=== PATIENT | male | born 1940 | race Caucasian/White ===

== ENCOUNTER → 2018-01-21 08:55 | Outpatient (CLI) | payer MEDICARE, OTHER, SELFPAY ==
[2018-01-21 10:18] LABS: Hematocrit 34.7 % (40-54); Hemoglobin 11.4 g/dl (13.0-16.5); Mean Corp Hgb Conc 32.9 g/gl (32-36); Mean Corpuscular Hgb 28.8 pg (27.0-32.0); Mean Corpuscular Volume 87.6 fL (80-94); Mean Platelet Vol. 11.5 fl (6.2-12.0); Platelet Count 246 K/mm3 (150-450); RBC Distribution Width CV 13.9 % (11.6-14.6); RBC Distribution Width SD 43.4 fl (35.1-43.9); Red Blood Count 3.96 M/mm3 (4.6-6.2); White Blood Count 8.3 K/mm3 (4.4-11.0)
[2018-01-21 10:20] LABS: Scan Indicated on CBC? Y/N NO
[2018-01-21 10:41] LABS: ALB/GLOB Ratio 0.8 RATIO (0.9-2.4); AST(SGOT) 17 U/L (15-37); Alanine Aminotransfer ALT/SGPT 18 U/L (16-61); Alkaline Phosphatase 82 U/L (45-117); Anion Gap 7 (5-15); BUN 24 mg/dL (7-18); Calcium,Total 8.1 mg/dL (8.5-10.1); Chloride 109 mmol/L (98-107); Cholesterol 125 mg/dL (200); Creatinine, Serum 1.72 mg/dL (0.70-1.30); EST Glomerular Filtration Rate 41 mL/min (>60); Est Glom Filt Rate - Afr Amer 50 mL/min (>60); Globulin 3.8 g/dL (2.2-4.2); Glucose 136 mg/dL (74-106); High Density Lipoprotein 49 mg/dL; Phosphorus 3.8 mg/dL (2.5-4.9); Potassium 3.7 mmol/L (3.5-5.1); Protein, Total 6.8 g/dL (6.4-8.2); Sodium Level 143 mmol/L (136-145); Thyroid Stim Hormone (TSH) 2.47 uIU/mL (0.358-3.74); Triglycerides 57 mg/dL; Very Low Density Lipoprotein 11 mg/dL (5-40)
[2018-01-21 10:56] LABS: PTHIN 73.1 pg/mL (18.4-80.1)
== END ==
PROVIDERS: Family Provider Family Medicine; PCP Family Medicine; Visit Provider Internal Medicine Rheumatology
DX: M06.011 Rheumatoid arthritis without rheumatoid factor, right shoulder (principal); M15.9 Polyosteoarthritis, unspecified; M47.897 Other spondylosis, lumbosacral region; I25.10 Atherosclerotic heart disease of native coronary artery without angina pectoris; I48.91 Unspecified atrial fibrillation; E11.9 Type 2 diabetes mellitus without complications; I10 Essential (primary) hypertension; M48.061 Spinal stenosis, lumbar region without neurogenic claudication; N28.9 Disorder of kidney and ureter, unspecified
CPT/HCPCS: 80053; 80061; 82306; 83970; 84100; 84443; 85027

== ENCOUNTER → 2018-02-21 11:43 | Outpatient (CLI) | payer MEDICARE, OTHER, SELFPAY ==
--- NOTE | 2018-02-21 11:45 | US_ITS ---
STUDY: SCROTUM ULTRASOUND REASON FOR EXAM: Male, 77 years old. Left testicular swelling TECHNIQUE: Ultrasound evaluation of the scrotum was performed with color Doppler and static [place]-scale imaging. COMPARISON: None. FINDINGS: RIGHT TESTICLE INTRATESTICULAR: There is a normal size of the right testicle. The right testicle measures 3.1 x 2.2 x 1.8 cm. There is a heterogeneous echotexture. There is normal arterial and normal venous vascularity. There is no demonstrated right testicular mass or cyst. There is right testicular microlithiasis. EXTRATESTICULAR: The epididymis is normal in size. The epididymis head measures 0.8 cm. There is normal vascularity of the epididymis. There is no demonstrated epididymal cystic structure. There is a moderate size hydrocele. There is no demonstrated varicocele. There is no demonstrated extratesticular mass or cyst. LEFT TESTICLE INTRATESTICULAR: There is a normal size of the left testicle. The left testicle measures 3.3 x 2.1 x 2.2 cm. There is a homogenous echotexture. There is normal arterial and normal venous vascularity. There is no demonstrated left testicular mass or cyst. Left testicular microlithiasis is noted. EXTRATESTICULAR: The epididymis is normal in size. The epididymis head measures 1.0 x 1.5 x 0.9 cm. There is normal vascularity of the epididymis. There is an epididymal cyst measuring 0.5 x 0.4 x 0.3 cm. There is a large hydrocele. There is no demonstrated varicocele. There is no demonstrated extratesticular mass or cyst. US/Testicular with Arterial Flow IMPRESSION: Bilateral testicular microlithiasis. Bilateral hydroceles, left side larger than right. Small left epididymal head cyst. Electronically Signed: Asad Jimenez MD at 21:11 EDT , Service support ,
== END ==
PROVIDERS: Family Provider Family Medicine; PCP Family Medicine; Visit Provider Family Medicine
DX: N50.89 Other specified disorders of the male genital organs (principal)
CPT/HCPCS: 76870; 93976

== ENCOUNTER → 2018-03-24 10:40 | Outpatient (CLI) | payer MEDICARE, OTHER, SELFPAY ==
--- NOTE | 2018-03-24 10:43 | RAD_ITS ---
STUDY: X-RAY - LEFT SHOULDER REASON FOR EXAM: Left shoulder pain. TECHNIQUE: 4 view(s) of the shoulder. COMPARISON: None. FINDINGS: Normal glenohumeral articulation. There is acromioclavicular arthrosis. Normal acromion. Normal humeral head and visualized proximal humerus. The soft tissue structures are unremarkable. Normal visualized pulmonary apex. RAD/Shoulder min 2 Views IMPRESSION: Acromioclavicular arthrosis. Electronically Signed: Farhat Leslie MD at 16:31 EDT Tel , Service support ,
== END ==
PROVIDERS: Family Provider Family Medicine; PCP Family Medicine; Visit Provider Family Medicine
DX: M25.512 Pain in left shoulder (principal)
CPT/HCPCS: 73030

== ENCOUNTER → 2018-04-05 06:33 | Outpatient (CLI) | payer MEDICARE, OTHER, SELFPAY ==
--- NOTE | 2018-04-05 06:39 | MRI_ITS ---
STUDY: MRI LEFT SHOULDER REASON FOR EXAM: Left shoulder pain. TECHNIQUE: Standardized fat and water weighted pulse sequences were obtained in all 3 orthogonal planes. COMPARISON: Radiographs 03/24/2018. FINDINGS: There is a full-thickness tear of the supraspinatus and infraspinatus tendons retracted approximately 3.8 cm to the level of the glenohumeral joint (T2 coronal images 7-18). There is an undersurface partial-thickness tear of the distal subscapularis tendon (T2 axial images 13-15). Normal teres minor tendon. There is atrophy with partial fat replacement of the supraspinatus muscle (T2 axial image 8). There is atrophy with partial fat replacement of the infraspinatus muscle (T2 axial image 15). Normal subscapularis muscle. Normal teres minor muscle. There is glenohumeral arthrosis with small marginal osteophytes of the humeral head and chondral thinning (T2 coronal images 12-14). There is small glenohumeral joint effusion with focal synovitis in the axillary bursa (T2 coronal image 15). Normal humeral head and visualized proximal humerus. There is a partial tear with attenuation of the intracapsular long biceps tendon (T2 axial images 7-10). There is degeneration of the labrum, especially the superior and anterior labrum. There is acromioclavicular arthrosis with hypertrophic changes (T2 sagittal image 5). There is a Type II morphology (curved), with a neutral orientation. There is subacromial-subdeltoid bursal fluid. Normal visualized coracohumeral and coracoacromial ligaments. There is a strain of the lateral deltoid muscle (T2 coronal images 7, 8, 10, 11). Normal trapezius muscle. MRI/Upper Ext Joint Only(Routine) IMPRESSION: Full-thickness tear of the supraspinatus and infraspinatus tendons. Undersurface partial-thickness tear of the subscapularis tendon. Atrophy of the supraspinatus and infraspinatus muscles. 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 Partial tear of the long biceps tendon. Acromioclavicular arthrosis. Strain of the lateral deltoid muscle. Glenohumeral joint fluid communicating with the subacromial-subdeltoid bursa. Electronically Signed: Farhat Leslie MD at 9:04 EDT Tel , Service support ,
== END ==
PROVIDERS: Family Provider Family Medicine; PCP Family Medicine; Visit Provider Family Medicine
DX: M25.512 Pain in left shoulder (principal)
CPT/HCPCS: 73221

== ENCOUNTER → 2018-06-10 08:12 | Outpatient (CLI) | payer MEDICARE, OTHER, SELFPAY ==
[2018-06-10 11:49] LABS: Anion Gap 9 (5-15); BUN 30 mg/dL (7-18); BUN/Creat Ratio 16.9 RATIO (10-20); Calcium,Total 8.7 mg/dL (8.5-10.1); Chloride 107 mmol/L (98-107); Creatinine, Serum 1.78 mg/dL (0.70-1.30); EST Glomerular Filtration Rate 39 mL/min (>60); Est Glom Filt Rate - Afr Amer 48 mL/min (>60); Glucose 190 mg/dL (74-106); Potassium 4.5 mmol/L (3.5-5.1); Sodium Level 142 mmol/L (136-145)
== END ==
PROVIDERS: Family Provider Family Medicine; PCP Family Medicine
DX: I25.10 Atherosclerotic heart disease of native coronary artery without angina pectoris (principal); I10 Essential (primary) hypertension
CPT/HCPCS: 36415; 80048

== ENCOUNTER → 2018-10-03 11:48 | Outpatient (CLI) | payer MEDICARE, OTHER, SELFPAY ==
[2018-10-03 15:12] LABS: ALB/GLOB Ratio 1.1 RATIO (0.9-2.4); AST(SGOT) 19 U/L (15-37); Alanine Aminotransfer ALT/SGPT 18 U/L (16-61); Albumin, Serum 3.4 g/dL (3.2-5.0); Alkaline Phosphatase 68 U/L (45-117); Anion Gap 8 (5-15); BUN 35 mg/dL (7-18); Calcium,Total 8.3 mg/dL (8.5-10.1); Chloride 109 mmol/L (98-107); Cholesterol 144 mg/dL (200); Creatinine, Serum 1.75 mg/dL (0.70-1.30); EST Glomerular Filtration Rate 40 mL/min (>60); Est Glom Filt Rate - Afr Amer 49 mL/min (>60); Globulin 3.1 g/dL (2.2-4.2); Glucose 93 mg/dL (74-106); High Density Lipoprotein 50 mg/dL; Potassium 4.5 mmol/L (3.5-5.1); Protein, Total 6.5 g/dL (6.4-8.2); Sodium Level 141 mmol/L (136-145); Triglycerides 88 mg/dL; Very Low Density Lipoprotein 18 mg/dL (5-40)
== END ==
PROVIDERS: Family Provider Family Medicine; PCP Family Medicine; Visit Provider Family Medicine
DX: I10 Essential (primary) hypertension (principal)
CPT/HCPCS: 36415; 80053; 80061

== ENCOUNTER 2018-10-31 06:13 | Emergency (ER) | payer MEDICARE, OTHER, SELFPAY ==
[2018-10-31 06:16] VITALS: PULSE 67; RESP 18; TEMP 36.6; O2SAT 96; BMI 30.4
--- NOTE | 2018-10-31 06:43 | ED.VISSUMM ---
- ER Visit Summary Date of Service: 10/31/18 Chief Complaint: Difficulty voiding History of Present Illness: The patient is a 78 M who presents with difficulty voiding. He is only been able to void small amounts. He does have a history of prior urinary retention. He required a Blackmon catheter for 4-5 days. No recent medication changes. No fevers chest pain shortness of breath vomiting. He otherwise has no complaints. Physical Examination: Afebrile vitals are unremarkable Moist mucous membranes Heart regular rate and rhythm Lungs are clear Abdomen soft nontender nondistended Alert Test Results: Not indicated Emergency Department Course and Treatment: Blackmon catheter was placed prior to my evaluation of the patient. He reports market relief of symptoms and currently has no complaints. Most likely etiology is benign prostatic hypertrophy. I do not believe any further diagnostic testing is necessary. He had 1200 cc of light yellow urine out. We will discharge him with a leg bag and have him follow-up with urology. Treatment Plan: [] Disposition: Discharge Impression: Acute urinary retention This note was generated with [employer] dictation software. It may contain incorrect words, spelling, and punctuation that were not noted in review of the chart prior to signing ED Disposition - Plan for ED Patient: Chief Complaint: Complaint Referrals: Samuel Avendaño MD [Primary Care Provider] -
--- NOTE | 2018-10-31 06:45 | ED.DEP ---
ED Disposition - Plan for ED Patient: Chief Complaint: Complaint Instructions: ED Retention Urinary Male Referrals: Samuel Avendaño MD [Primary Care Provider] - Roman Santana MD [STAFF PHYSICIAN] -
[2018-10-31 07:08] VITALS: RESP 16
--- OUTSIDE RECORDS SUMMARY | 2019-02-01 16:40 | XMS RPT_ITS ---
:1940 Author Organization [place] Support Name Relationship Address Phone JOVANNY HARO Unavailable [id number] + [place] [address] PERTEE, JOVITA Unavailable [address] + [place] [address] R Unavailable Unavailable Unavailable JOVANNY HARO Unavailable [address] + [place] [address] PERTEE, JOVITA Unavailable [address] + [place] [address] R Unavailable Unavailable Unavailable timmy haro Unavailable Unavailable + Pertee, Jose Unavailable Unavailable + timmy haro Unavailable Unavailable + Pertee, Jose Unavailable Unavailable + timmy haro Unavailable Unavailable + Pertee, Jose Unavailable Unavailable + JOVANNY HARO Unavailable [address] + [place] [address] PERTEE, JOVITA Unavailable [address] + [place] [address] R Unavailable Unavailable Unavailable JOVANNY HARO Unavailable [address] + [place] [address] PERTEE, JOVITA Unavailable [address] + [place] [address] R Unavailable Unavailable Unavailable JOVANNY HARO Unavailable [address] + [place] [address] PERTEE, JOVITA Unavailable [address] + [place] [address] R Unavailable Unavailable Unavailable JOVANNY HARO Unavailable [address] + [place] [address] PERTEE, JOVITA Unavailable [address] + [place] [address] R Unavailable Unavailable Unavailable JOVANNY HARO Unavailable [address] + [place] [address] PERTEE, JOVITA Unavailable [address] + [place] [address] R Unavailable Unavailable Unavailable Care Team Providers Name Role Phone Joaquín Gaffney Attending Unavailable PROVIDER, UNKNOWN Referring Unavailable [facility] Unavailable PROVIDER, UNKNOWN Referring Unavailable [facility] Unavailable Donnell Mcfarland Attending Unavailable PROVIDER, UNKNOWN Referring Unavailable [place] Unavailable Som Langford Attending Unavailable [facility], [facility] Unavailable Michele Wang Attending Unavailable Sohail Avendaño Attending Unavailable [place], Christopher Referring Unavailable [facility], [facility] Unavailable Sohail Avendaño Attending Unavailable [facility], [facility] Unavailable ASHKAN NGUYEN Attending Unavailable ASHKAN NGUYEN Referring Unavailable [place] Unavailable Sohail Avendaño Attending Unavailable Kateryna, Christmaritza Referring Unavailable [place], [facility] Unavailable Sohail Avendaño Attending Unavailable [place], [facility] Unavailable Keyona Mojica Attending Unavailable Keyona Mojica Referring Unavailable [place], [facility] Unavailable PROBLEMS PROBLEMS DATE TYPE CONDITION / CODE ATTENDING STATUS SOURCE Admitting Hyp hrt & chr howardny Som Langford Active [facility] 8 Diagnosis dis w hrt fail and System stg 1-4/unsp chr howardny Repository / I13.0(ICD-10) Admitting Chronic diastolic Som Langford Active [facility] 8 Diagnosis (congestive) heart System failure / Repository I50.32(ICD-10) Admitting Atrial septal defect Som Langford Active [facility] 8 Diagnosis / Q21.1(ICD-10) System 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 Langford Active [facility] 8 Diagnosis use of aspirin / System Z79.82(ICD-10) Repository Admitting Athscl heart disease Langford, Som Racquel Active [facility] 8 Diagnosis of [place] coronary System artery w/o ang pctrs Repository / I25.10(ICD-10) Admitting Type 2 diabetes Langford, Som Racquel Active [facility] 8 Diagnosis mellitus w diabetic System chronic kidney Repository disease / E11.22(ICD-10) Admitting Chronic kidney Langford, Som Racquel Active [facility] 8 Diagnosis disease, stage 3 System (moderate) / Repository N18.3(ICD-10) Admitting Hyperlipidemia, Langford, Som Racquel Active [facility] 8 Diagnosis unspecified / System E78.5(ICD-10) Repository Admitting Benign prostatic Langford, Som Racquel [employer] [facility] 8 Diagnosis hyperplasia without System lower urinry tract Repository symp / N40.0(ICD-10) Admitting Rheumatoid arthritis, Langford, Som Racquel Active [facility] 8 Diagnosis unspecified / System M06.9(ICD-10) Repository Admitting Fibromyalgia / Langford, Som Racquel Active [facility] 8 Diagnosis M79.7(ICD-10) System Repository Admitting Obesity, unspecified Langford, Som Racquel Active [facility] 8 Diagnosis / E66.9(ICD-10) System Repository Admitting Presence of coronary Langford, Som Racquel Active [facility] 8 Diagnosis angioplasty implant System and graft / Repository Z95.5(ICD-10) Admitting Presence of Langford, Som Racquel Active [facility] 8 Diagnosis aortocoronary bypass System graft / Z95.1(ICD-10) Repository Admitting Presence of Langford, Som Racquel Active [facility] 8 Diagnosis prosthetic heart System valve / Z95.2(ICD-10) Repository Admitting Abnormal results of Langford, Som Racquel Active [facility] 8 Diagnosis liver function System studies / Repository R94.5(ICD-10) Admitting Sepsis due to Langford, Som Racquel Active [facility] 8 Diagnosis Escherichia coli [E. System coli] / Repository A41.51(ICD-10) Admitting Other cholangitis / Som Langfordoc [facility] 8 Diagnosis K83.09(ICD-10) System Repository Admitting Acute kidney failure, Iliana Som [employer] 8 Diagnosis unspecified / System N17.9(ICD-10) Repository Admitting Presence of cardiac Iliana Som [employer] [facility] 8 Diagnosis pacemaker / System Z95.0(ICD-10) Repository Admitting Pulmonary fibrosis, Iliana Som Racquel [employer] [facility] 8 Diagnosis unspecified / System J84.10(ICD-10) Repository Admitting Body mass index (BMI) Som Langford [facility] 8 Diagnosis 31.0-31.9, adult / System Z68.31(ICD-10) Repository Admitting Bradycardia, Bartolo Donnell [facility] 8 Diagnosis unspecified / System R00.1(ICD-10) Repository Admitting Atrioventricular Bartolo [facility] 8 Diagnosis block, second degree System / I44.1(ICD-10) Repository Admitting Nonrheumatic aortic Bartolo Donnell [facility] 8 Diagnosis (valve) stenosis / System I35.0(ICD-10) Repository Admitting Unspecified right Bartolo Donnell [facility] 8 Diagnosis bundle-branch block / System I45.10(ICD-10) Repository Admitting Body mass index (BMI) Paula Mcfarlander [employer] [facility] 8 Diagnosis 30.0-30.9, adult / System Z68.30(ICD-10) Repository Admitting Trifascicular block / Bartolo Donnell [facility] 8 Diagnosis I45.3(ICD-10) System Repository Admitting Nonrheumatic aortic L[employer]pez [employer] Diagnosis (valve) stenosis with System insufficiency / Repository I35.2(ICD-10) Admitting Cardiomegaly / Preston, Joaquín [employer] [facility] 8 Diagnosis I51.7(ICD-10) System Repository Unknown I25.10 - ASHKAN NGUYEN Active [facility] 8 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[facility] coronary artery Repository without angina pectoris / I25.10(ICD-10) Unknown M25.512 - Pain in [place] Active [facility] 8 left shoulder / [facility] M25.512(ICD-10) Hospital Repository PROCEDURES PROCEDURES No Procedure Records FoundRESULTS RESULTS DISCHARGE INSTRUCTION Observed: 10/31/2018 Status: F Source: [place] 6:46 AM [facility] REPOSITORY [facility] Medical Records Department [address] [place] [address] Discharge Instruction 10/31/1845 MR#: [id number] Acct: [id number] Name: SIGIFREDO MENDIETA Rep #: [id number] : 1940 78 From: Michele Wang MD PCP: Sohail Avendaño MD Status: REG ER ED Disposition - Plan for ED Patient: Chief Complaint: Complaint Instructions: ED Retention Urinary Male Referrals: Samuel Avendaño MD [Primary Care Provider] - Roman Santana MD [STAFF PHYSICIAN] - What to do if you have Problems For any increased pain, shortness of breath, bleeding, nausea or vomiting, chest pain, or any unexpected problems, contact your Primary Care Provider. Call [facility] ([phone]) or report to the closest Emergency Room. Call 911 if necessary. 10/31/18 0646 <Electronically signed by Michele Wang MD> Date Michele Wang MD Cosigner Signature (If Indicated): Date CC: Sohail Avendaño MD EMERGENCY DEPARTMENT Observed: 10/31/2018 Status: F Source: ERIKA SUMMARY 6:45 AM [facility] REPOSITORY [facility] Medical Records Department [address] [place] [address] Emergency Department Summary 10/31/18 0643 MR#: [id number] Acct: [id number] Name: SIGIFREDO MENDIETA Rep #: [id number] : 1940 78 From: Michele Wang MD PCP: Sohail Avendaño MD Status: PRE ER - ER Visit Summary Date of Service: 10/31/18 Chief Complaint: Difficulty voiding History of Present Illness: The patient is a 78 M who presents with difficulty voiding. He is only been able to void small amounts. He does have a history of prior urinary retention. He required a Blackmon catheter for 4-5 days. No recent medication changes. No fevers chest pain shortness of breath vomiting. He otherwise has no complaints. Physical Examination: Afebrile vitals are unremarkable Moist mucous membranes Heart regular rate and rhythm Lungs are clear Abdomen soft nontender nondistended Alert Test Results: Not indicated Emergency Department Course and Treatment: Blackmon catheter was placed prior to my evaluation of the patient. He reports market relief of symptoms and currently has no complaints. Most likely etiology is benign prostatic hypertrophy. I do not believe any further diagnostic testing is necessary. He had 1200 cc of light yellow urine out. We will discharge him with a leg bag and have him follow-up with urology. Treatment Plan: [] Disposition: Discharge Impression: Acute urinary retention This note was generated with [employer] dictation software. It may contain incorrect words, spelling, and punctuation that were not noted in review of the chart prior to signing ED Disposition - Plan for ED Patient: Chief Complaint: Complaint Referrals: Samuel Avendaño MD [Primary Care Provider] - What to do if you have Problems For any increased pain, shortness of breath, bleeding, nausea or vomiting, chest pain, or any unexpected problems, contact your Primary Care Provider. Call [facility] ([phone]) or report to the closest Emergency Room. Call 911 if necessary. 10/31/18 0645 <Electronically signed by Michele Wang MD> Date Michele Wang MD Cosigner Signature (If Indicated): Date CC: Sohail Avendaño MD COMPREHENSIVE METABOLIC Collected: 10/03/2018 Status: F Source: ERIKA VASQUEZ 11:49 AM [facility] REPOSITORY Order Comment: Order Date: 08/02/18 Order Info: [id number] - CMP Order Info: [id number] - LIPID TYPE CODE TESTS RESULT OUT OF RANGE REFERENCE UNITS LAB L501.0100 74-106 mg/dL Normal GLU 93 Result Comment: Please note revised GLUCOSE reference range effective 2017. LAB L501.1000 7-18 mg/dL High BUN 35 LAB L501.1100 0.70-1.30 mg/dL High CREAT,SERUM 1.75 Result Comment: The validity of the calculated GFR AND GFRAA in patients over 70 years has not been determined. Clinical correlation is essential. LAB L501.1110 >60 mL/min Low EST GFR 40 Result Comment: Non- GFR Calc LAB L501.1115 >60 mL/min Low EST GFR - AA 49 Result Comment: GFR Calc LAB L501.1300 10-20 RATIO Normal BUN/CRE 20.0 LAB L501.1500 6.4-8.2 g/dL T Normal PROT 6.5 LAB L501.1800 3.2-5.0 g/dL Normal ALB 3.4 LAB L501.1950 2.2-4.2 g/dL Normal GLOB 3.1 LAB L501.2000 0.9-2.4 RATIO Normal A/G 1.1 LAB L501.2200 8.5-10.1 mg/dL Low CA 8.3 LAB L501.4100 15-37 U/L Normal AST 19 LAB L501.4305 45-117 U/L Normal ALK P 68 LAB L501.4405 16-61 U/L Normal ALT 18 LAB L501.4600 0.20-1.00 mg/dL T Normal BILI 0.30 LAB L501.5300 136-145 mmol/L NA Normal 141 LAB L501.5600 3.5-5.1 mmol/L K Normal 4.5 LAB L501.5900 98-107 mmol/L High CL 109 LAB L501.6100 21.0-32.0 mmol/L Normal CO2 24.0 LAB L501.6200 5-15 Normal GAP 8 Performed By: #### L500.4050, L500.4100 #### [facility] [address] [place], [address] LIPID PROFILE Collected: 10/03/2018 Status: F Source: [place] 11:49 AM [facility] REPOSITORY Order Comment: Order Date: 08/02/18 Order Info: [id number] - CMP Order Info: [id number] - LIPID TYPE CODE TESTS RESULT OUT OF RANGE REFERENCE UNITS LAB L501.4900 200 mg/dL Normal CHOL 144 Result Comment: <200 mg/dL Desirable 200-240 mg/dL Borderline >240 mg/dL High Risk LAB L501.5000 mg/dL Normal TRIG 88 Result Comment: The drugs N-Acetylcysteine and Metamizole may falsely depress this assay. Serum Triglycerides Reference Interval Normal <150 mg/dL Borderline high 150 - 199 mg/dL High 200 - 499 mg/dL Very High > or = 500 mg/dL LAB L501.6400 mg/dL Normal HDL 50 Result Comment: The drugs N-Acetylcysteine and Metamizole may falsely depress this assay. Reference Range HDL <40 mg/dL Low HDL Cholesterol HDL >or= 60 mg/dL High HDL Cholesterol LAB L501.6500 0-130 mg/dL Normal LDL 76 LAB L501.6600 5-40 mg/dL Normal VLDL 18 Performed By: #### L500.4050, L500.4100 #### [facility] [address] [facility] [place], [address] DISCHARGE SUMMARY Observed: 08/17/2018 Status: F Source: [place] 11:59 AM SYSTEM REPOSITORY Discharge Summary Sigifredo Mendieta : 1940 ADMIT DATE: 08/11/2018 DISCHARGE DATE: 08/17/2018 PRIMARY CARE PHYSICIAN: Sohail Avendaño VISIT STATUS: Admission CODE STATUS: Full Code DISCHARGE DIAGNOSES: Active Problems: Elevated LFTs Pain of upper abdomen Non-intractable cyclical vomiting with nausea Dilated cbd, acquired Leukemoid reaction Elevated procalcitonin Elevated bilirubin Sepsis due to Escherichia coli (E. coli) (HCC) Obesity Resolved Problems: * No resolved hospital problems. * HOSPITAL COURSE: The patient is a 78 y.o. male presents to our ER 6 days ago with Abd pain for two days. Started two days prior to coming in as an intermittent aching pain. Yesterday became persistent and intense. It is located in the RUQ. He had nausea and non bloody vomiting. BM and urination has been normal. He reports eating fatty food (small) which temporally corresponded. 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 His liver enzymes were up and GI was consulted to see him for possible cholestasis. Pt's GI symptoms, elevated LFTs, prior dilated CBD on RUQ U/S, leukocytosis and increased Procalcitonin level are suggestive of transient ascending cholangitis from possible passed choledocholithiasis. Patient was started on IV cefepime empirically. Patients Blood cx came back positive with e.coli for both bottles and ID was consulted. Patient changed to IV ertapenam per ID. Repeat cx were done and came back negative now. ID has changed patient to cipro 750mg daily and they wish for patient to be on this till 08/29. Otherwise, clinically he's doing great. No chest pain or sob. No fevers or chills. No abdominal pain whatsoever. He will be discharged with meds to beds per his request. Physical exam; Heart: S1S2 heard RRR Lungs; CTAB SIGNIFICANT DIAGNOSTIC STUDIES: CONSULTANTS: Infectious disease Gastroenterology RECOMMENDED NEXT STEPS: DISCHARGE MEDICATIONS: Sigifredo Mendieta Home Medication Instructions АЛЕКСАНДР:[id number] Printed on:08/17/18 1201 Medication Information amLODIPine (NORVASC) 10 MG tablet Take 1 tablet by mouth daily aspirin 81 MG tablet Take 81 mg by mouth daily atorvastatin (LIPITOR) 40 MG tablet Take 1 tablet by mouth daily Do NOT resume until 08/29 Calcium Carbonate-Vitamin D (OS-EFREM 500 + D PO) Take 1 tablet by mouth daily carvedilol (COREG) 12.5 MG tablet Take 1 tablet by mouth 2 times daily (with meals) Cholecalciferol (VITAMIN D3) 2000 units CAPS Take 1 capsule by mouth every morning ciprofloxacin (CIPRO) 750 MG tablet Take 1 tablet by mouth every 24 hours for 12 days ferrous sulfate 325 (65 Fe) MG tablet Take 325 mg by mouth 2 times daily finasteride (PROSCAR) 5 MG tablet Take 5 mg by mouth daily furosemide (LASIX) 20 MG tablet Take 20 mg by mouth daily hydrALAZINE (APRESOLINE) 50 MG tablet Take 50 mg by mouth 3 times daily hydroxychloroquine (PLAQUENIL) 200 MG tablet Take 200 mg by mouth daily isosorbide mononitrate (IMDUR) 30 MG extended release tablet Take 1 tablet by mouth daily lisinopril (PRINIVIL;ZESTRIL) 20 MG tablet Take 1 tablet by mouth 2 times daily pantoprazole (PROTONIX) 40 MG tablet Take 1 tablet by mouth every morning (before breakfast) potassium chloride (KLOR-CON M20) 20 MEQ extended release tablet Take 20 mEq by mouth daily tamsulosin (FLOMAX) 0.4 MG capsule Take 0.4 mg by mouth daily traMADol (ULTRAM) 50 MG tablet Take 50 mg by mouth every 6 hours as needed for Pain.. DIET: DIET GENERAL; ACTIVITY: No restriction. up with assist COMPLEXITY OF FOLLOW UP: [] Moderate Complexity: follow up within 7-14 calendar days (31317) [] Severe Complexity: follow up within 7 calendar days (04825) FOLLOW UP TESTING, PENDING RESULTS OR REFERRALS AT TRANSITIONAL CARE VISIT: [] Yes [] No PENDING STUDIES: No DISPOSITION: Home FACILITY/HOME CARE AGENCY NAME: Follow up with Sohail Avendaño [address] [phone] on 1 week INSTRUCTIONS TO MA/SW: Please call patient on day after discharge (must document patient contacted within 2 business days of discharge). FOLLOW UP QUESTIONS FOR MA/SW: 1. Did you get medications filled and taking them as instructed from discharge? 2. Are you following your discharge instructions from your hospital stay? 3. Please confirm patient is scheduled for a follow up appointment within the above time frame. DISCHARGE TIME: > 30 minutes SIGNED: SOM LANGFORD MD 08/17/2018, 12:01 PM IG CONCENTRATION BLOOD Collected: 08/15/2018 Status: F Source: [facility] 5:32 PM SYSTEM REPOSITORY TYPE CODE TESTS RESULT OUT OF RANGE REFERENCE UNITS LAB IGG 700.0-1600.0 mg/dL Normal IgG,Blood 1028.6 LAB IGM 40.0-230.0 mg/dL Normal IgM Blood 48.5 LAB IGA 70.0-400.0 mg/dL Normal IgA,Blood 204.8 Performed By: #### IGQNT #### [facility] [address] [place] [address] Observed: 08/15/2018 Status: F Source: [facility] BLOOD 2:05 PM SYSTEM REPOSITORY Order Comment: Specimen Source Comment:Blood CULTURE BLOOD --> Status: F No growth at 5 days. Performed By: #### C/BLD #### [facility] [address] [place] [address] Observed: 08/15/2018 Status: F Source: [facility] BLOOD (TWO) 1:40 PM SYSTEM REPOSITORY Order Comment: Specimen Source Comment:Blood CULTURE BLOOD (Two) --> Status: F No growth at 5 days. Performed By: #### C/BLT #### [facility] [address] [place] [address] COMP METABOLIC PANEL Collected: 08/15/2018 Status: F Source: [facility] 2:04 AM SYSTEM REPOSITORY TYPE CODE TESTS RESULT OUT OF RANGE REFERENCE UNITS LAB NA3 137-145 mmol/L Sodium Normal 142 LAB K3 3.5-5.1 mmol/L Normal Potassium 3.6 LAB CL3 98-107 mmol/L High Chloride 115 LAB CO23 22-30 mmol/L Carbon Normal Dioxide 22 LAB ANIN3 NA Anion Gap 6 LAB GLUC3 70-100 mg/dL High Glucose 113 LAB BUN3 7-20 mg/dL High Urea Nitrogen 29 LAB CRET3 0.52-1.25 mg/dL High Creatinine 1.51 LAB GF3BR >60 mL/min eGFR 54.3 LAB GF3WR >60 mL/min eGFR OTHER 44.8 Result Comment: Source- MDRD equation with creatinine calibration to IDMS(NKDEP) eGFR not recommended for drug dose adjustment LAB CA3 8.4-10.4 mg/dL Low Calcium 8.2 LAB ALB3 3.5-5.0 g/dL Low Albumin, Serum 2.9 LAB TP3 6.3-8.2 g/dL Low Total Protein 5.8 LAB BILT3 0.2-1.3 mg/dL Normal Bilirubin,Total 0.7 LAB ALKP3 38-126 U/L Alkaline Normal Phosphatase 103 LAB ALT3 13-69 U/L High ALT (SGPT) 112 LAB AST3 15-46 U/L AST (SGOT) Normal 29 Performed By: #### CMP3 #### [facility] [address] [place] [phone] COMP METABOLIC PANEL Collected: 08/14/2018 Status: F Source: [facility] 5:38 AM SYSTEM REPOSITORY TYPE CODE TESTS RESULT OUT OF RANGE REFERENCE UNITS LAB NA3 137-145 mmol/L Sodium Normal 141 LAB K3 3.5-5.1 mmol/L Normal Potassium 3.8 LAB CL3 98-107 mmol/L High Chloride 115 LAB CO23 22-30 mmol/L Low Carbon Dioxide 20 LAB ANIN3 NA Anion Gap 6 LAB GLUC3 70-100 mg/dL Glucose Normal 94 LAB BUN3 7-20 mg/dL High Urea Nitrogen 37 LAB CRET3 0.52-1.25 mg/dL High Creatinine 1.82 LAB GF3BR >60 mL/min eGFR 43.8 LAB GF3WR >60 mL/min eGFR OTHER 36.1 Result Comment: Source- MDRD equation with creatinine calibration to IDMS(NKDEP) eGFR not recommended for drug dose adjustment LAB CA3 8.4-10.4 mg/dL Low Calcium 8.2 LAB ALB3 3.5-5.0 g/dL Low Albumin, Serum 3.1 LAB TP3 6.3-8.2 g/dL Low Total Protein 6.0 LAB BILT3 0.2-1.3 mg/dL Normal Bilirubin,Total 1.0 LAB ALKP3 38-126 U/L Alkaline Normal Phosphatase 119 LAB ALT3 13-69 U/L High ALT (SGPT) 153 LAB AST3 15-46 U/L High AST (SGOT) 47 Performed By: #### CMP3, HEMDF #### [facility] [address] [place] [phone] HEMOGRAM W/ AUTODIFF Collected: 08/14/2018 Status: F Source: [facility] 5:38 AM SYSTEM REPOSITORY TYPE CODE TESTS RESULT OUT OF REFERENCE UNITS RANGE LAB IWBC 3.6-10.7 10*3/uL WBC Normal 10.6 LAB RBC 4.40-5.90 10*6/uL Low RBC 3.68 LAB HGB 13.0-18.0 g/dL Low Hemoglobin 10.3 LAB HCT 40.0-52.0 % Low Hematocrit 30.5 LAB MCV 80.0-98.0 fL MCV Normal 82.8 LAB MCH 26.0-34.0 pg MCH Normal 27.9 LAB MCHC 32.0-36.0 % MCHC Normal 33.7 LAB RDW 11.5-14.5 % RDW High 15.3 LAB PLT 140-440 10*3/uL Platelet Normal 142 LAB MPV 7.4-10.4 fL MPV Normal 10.3 LAB GRAN% 40.0-80.0 % Granulocytes Normal 78.5 LAB LYMP% 20.0-40.0 % Low Lymphocytes 10.2 LAB MONO% 2.0-10.0 % Monocytes Normal 9.7 LAB EOS% 1.0-6.0 % Eosinophils Normal 1.2 LAB BAS% 0.0-2.0 % Basophils Normal 0.4 LAB ANC 1.8-7.0 10*3/uL Abs High Neutrophile Cnt 8.3 LAB ALC 1.0-4.3 10*3/uL Abs Lymph Cnt Normal 1.1 LAB AMC 0.0-0.8 10*3/uL Abs Monocyte High Cnt 1.0 LAB AEC 0.0-0.5 10*3/uL Abs Eosin Cnt Normal 0.1 LAB ABC 0.0-0.2 10*3/uL Abs Baso Cnt Normal 0.0 Performed By: #### CMP3, HEMDF #### [facility] [address] [place] [phone] HEPATIC FUNCTION Collected: 08/13/2018 Status: F Source: [facility] 5:22 AM SYSTEM REPOSITORY TYPE CODE TESTS RESULT OUT OF RANGE REFERENCE UNITS LAB ALB3 3.5-5.0 g/dL Low Albumin, Serum 3.0 LAB TP3 6.3-8.2 g/dL Low Total Protein 5.9 LAB BILT3 0.2-1.3 mg/dL Normal Bilirubin,Total 1.0 LAB BILD3 0.0-0.3 mg/dL Normal Bilirubin,Direct 0.0 LAB ALKP3 38-126 U/L High Alkaline Phosphatase 133 LAB ALT3 13-69 U/L High ALT (SGPT) 223 LAB AST3 15-46 U/L High AST (SGOT) 90 Performed By: #### LFT3, LIPA4, BMP3, MG3 #### [facility] [address] [place] [phone] LIPASE Collected: 08/13/2018 Status: F Source: [place] 5:22 AM SYSTEM REPOSITORY TYPE CODE TESTS RESULT OUT OF RANGE REFERENCE UNITS LAB LIPA4 23-300 U/L Normal Lipase 106 Performed By: #### LFT3, LIPA4, BMP3, MG3 #### [facility] [address] [place] [phone] BASIC METABOLIC PANEL Collected: 08/13/2018 Status: F Source: [place] 5:22 AM SYSTEM REPOSITORY TYPE CODE TESTS RESULT OUT OF RANGE REFERENCE UNITS LAB NA3 137-145 mmol/L Sodium Normal 139 LAB K3 3.5-5.1 mmol/L Normal Potassium 4.2 LAB CL3 98-107 mmol/L High Chloride 111 LAB CO23 22-30 mmol/L Low Carbon Dioxide 19 LAB ANIN3 NA Anion Gap 9 LAB GLUC3 70-100 mg/dL Glucose Normal 88 LAB BUN3 7-20 mg/dL High Urea Nitrogen 44 LAB CRET3 0.52-1.25 mg/dL High Creatinine 2.18 LAB GF3BR >60 mL/min eGFR 35.5 LAB GF3WR >60 mL/min eGFR OTHER 29.3 Result Comment: Source- MDRD equation with creatinine calibration to IDMS(NKDEP) eGFR not recommended for drug dose adjustment LAB CA3 8.4-10.4 mg/dL Low Calcium 8.3 Performed By: #### LFT3, LIPA4, BMP3, MG3 #### [facility] [address] [place] [phone] MAGNESIUM Collected: 08/13/2018 Status: F Source: [facility] 5:22 AM SYSTEM REPOSITORY TYPE CODE TESTS RESULT OUT OF RANGE REFERENCE UNITS LAB MG3 1.6-2.3 mg/dL Normal Magnesium 1.9 Performed By: #### LFT3, LIPA4, BMP3, MG3 #### [facility] [address] [address] Observed: 08/12/2018 Status: F Source: [facility] CULTURE BLOOD (TWO) 3:37 PM SYSTEM REPOSITORY Order Comment: Specimen Source Comment:Blood 1 Organism Escherichia coli Isolated: For identification and/or sensitivity, refer to culture collected on: 08/12/18 at 15:37 ([id number]). Performed By: #### C/BLT #### [facility] [address] [address] Observed: 08/12/2018 Status: F Source: [facility] CULTURE BLOOD 3:37 PM SYSTEM REPOSITORY Order Comment: Specimen Source Comment:Blood CULTURE BLOOD --> Status: F Escherichia coli ? DETECTED Presumptive identification performed using [employer] PCR methodology; confirmatory identification to follow. The following targets were NOT DETECTED unless otherwise stated above in report: Staphylococcus aureus, Staphylococcus species, Enterococcus species, Streptococcus species, Streptococcus agalactiae (Group B), Streptococcus pneumoniae, Streptococcus pyogenes (Group A), Listeria monocytogenes, Acinetobacter baumannii, Enterobacteriaceae, Enterobacter cloacae complex, E. coli, Klebsiella oxytoca, Klebsiella pneumoniae, Proteus species, Serratia marcescens, Pseudomonas aeruginosa, Haemophilus influenzae, Neisseria meningitidis, Phoebe albicans, Phoebe glabrata, Phoebe krusei, Phoebe parapsilosis, Phoebe tropicalis. The following antibiotic resistance targets were NOT DETECTED unless otherwise stated above in report: mecA (methicillin resistance gene) and van A/B (vancomycin resistance gene). Presumptive identification performed using [employer] PCR methodology; confirmatory identification to follow. The following targets were NOT DETECTED unless otherwise stated above in report: Staphylococcus aureus, Staphylococcus species, Enterococcus species, Streptococcus species, Streptococcus agalactiae (Group B), Streptococcus pneumoniae, Streptococcus pyogenes (Group A), Listeria monocytogenes, Acinetobacter baumannii, Enterobacteriaceae, Enterobacter cloacae complex, E. coli, Klebsiella oxytoca, Klebsiella pneumoniae, Proteus species, Serratia marcescens, Pseudomonas aeruginosa, Haemophilus influenzae, Neisseria meningitidis, Phoebe albicans, Phoebe glabrata, Phoebe krusei, Phoebe parapsilosis, Phoebe tropicalis. The following antibiotic resistance targets were NOT DETECTED unless otherwise stated above in report: mecA (methicillin resistance gene) and van A/B (vancomycin resistance gene). 1 Organism Escherichia coli Isolated: 1 Organism Antibiotic Result Intrp Amikacin(FRED) <= 2 S Ampicillin(FRED) = 8 S Ampicillin/Sulbactam(FRED) = 4 S Aztreonam(FRED) <= 1 S Cefazolin(FRED) <= 4 S Cefepime(FRED) <= 1 S Ceftriaxone(FRED) <= 1 S Ciprofloxacin(FRED) <= 0.25 S Ertapenem(FRED) <= 0.5 S Gentamicin(FRED) <= 1 S Levofloxacin(FRED) <= 0.12 S Meropenem(FRED) <= 0.25 S Pip/Tazobactam(FRED) <= 4 S Performed By: #### C/BLD #### [facility] [address] [address] [id number] HEMOGRAM W/ AUTODIFF Collected: 08/12/2018 Status: F Source: [facility] 5:25 AM SYSTEM REPOSITORY TYPE CODE TESTS RESULT OUT OF RANGE REFERENCE UNITS LAB IWBC 3.6-10.7 10*3/uL High WBC 25.9 LAB RBC 4.40-5.90 10*6/uL Low RBC 3.74 LAB HGB 13.0-18.0 g/dL Low Hemoglobin 10.3 LAB HCT 40.0-52.0 % Low Hematocrit 31.4 LAB MCV 80.0-98.0 fL MCV Normal 84.0 LAB MCH 26.0-34.0 pg MCH Normal 27.5 LAB MCHC 32.0-36.0 % MCHC Normal 32.7 LAB RDW 11.5-14.5 % High RDW 15.8 LAB PLT 140-440 10*3/uL Platelet Normal 145 LAB MPV 7.4-10.4 fL MPV Normal 9.6 Performed By: #### HEMDF, PT, BMP3M, LFT3, LIPA4, ACET4, MDIFF, PCAL, HEPAN, TANNER #### [facility] [address] [place] [phone] PROTHROMBIN TIME Collected: 08/12/2018 Status: F Source: [facility] 5:25 AM SYSTEM REPOSITORY TYPE CODE TESTS RESULT OUT OF REFERENCE UNITS RANGE LAB PROTM 9.0-12.0 s Prothrombin High Time 14.4 Result Comment: . LAB INR 0.9-1.1 NA High INR 1.4 Result Comment: Recommended Anticoagulant Therapy: SEE BELOW ----- INR of 2.0 - 3.0 : - Prophylaxis of Venous Thrombosis (high-risk surgery) - Treatment of Venous Thrombosis - Treatment of Pulmonary Embolism (Includes tissue heart valves, Acute Myocardial Infarction to prevent systemic embolism, Valvular Heart Disease, and Atrial Fibrillation) ----- INR of 2.5 - 3.5 : - Mechanical Prosthetic Valves (high risk) - If oral anticoagulant therapy is used to prevent Myocardial Infarction Performed By: #### HEMDF, PT, BMP3M, LFT3, LIPA4, ACET4, MDIFF, PCAL, HEPAN, TANNER #### [facility] [address] [place] [phone] BASIC METABOLIC PANEL Collected: 08/12/2018 Status: F Source: [facility] 5:25 AM SYSTEM REPOSITORY TYPE CODE TESTS RESULT OUT OF RANGE REFERENCE UNITS LAB NA3 137-145 mmol/L Sodium Normal 141 LAB K3 3.5-5.1 mmol/L Normal Potassium 4.0 LAB CL3 98-107 mmol/L High Chloride 112 LAB CO23 22-30 mmol/L Carbon Normal Dioxide 22 LAB ANIN3 NA Anion Gap 7 LAB GLUC3 70-100 mg/dL Glucose Normal 88 LAB BUN3 7-20 mg/dL High Urea Nitrogen 45 LAB CRET3 0.52-1.25 mg/dL High Creatinine 2.52 LAB GF3BR >60 mL/min eGFR 30.1 LAB GF3WR >60 mL/min eGFR OTHER 24.8 Result Comment: Source- MDRD equation with creatinine calibration to IDMS(NKDEP) eGFR not recommended for drug dose adjustment LAB CA3 8.4-10.4 mg/dL Low Calcium 8.1 Performed By: #### HEMDF, PT, BMP3M, LFT3, LIPA4, ACET4, MDIFF, PCAL, HEPAN, TANNER #### [facility] [address] [place] [phone] HEPATIC FUNCTION Collected: 08/12/2018 Status: F Source: [facility] 5:25 AM SYSTEM REPOSITORY TYPE CODE TESTS RESULT OUT OF REFERENCE UNITS RANGE LAB ALB3 3.5-5.0 g/dL Low Albumin, Serum 2.9 LAB TP3 6.3-8.2 g/dL Low Total Protein 5.6 LAB BILT3 0.2-1.3 mg/dL High Bilirubin,Total 2.0 LAB BILD3 0.0-0.3 mg/dL High Bilirubin,Direct 0.4 LAB ALKP3 38-126 U/L Alkaline High Phosphatase 127 LAB ALT3 13-69 U/L ALT (SGPT) High 329 LAB AST3 15-46 U/L AST (SGOT) High 206 Performed By: #### HEMDF, PT, BMP3M, LFT3, LIPA4, ACET4, MDIFF, PCAL, HEPAN, TANNER #### [facility] [address] [place] [phone] LIPASE Collected: 08/12/2018 Status: F Source: [facility] 5:25 AM SYSTEM REPOSITORY TYPE CODE TESTS RESULT OUT OF REFERENCE UNITS RANGE LAB LIPA4 23-300 U/L High Lipase 346 Performed By: #### HEMDF, PT, BMP3M, LFT3, LIPA4, ACET4, MDIFF, PCAL, HEPAN, TANNER #### [facility] [address] [place] [phone] ACETAMINOPHEN Collected: 08/12/2018 Status: F Source: [facility] 5:25 AM SYSTEM REPOSITORY TYPE CODE TESTS RESULT OUT OF REFERENCE UNITS RANGE LAB ACET3 10.0-30.0 ug/mL Acetaminophen Normal < 10.0 Performed By: #### HEMDF, PT, BMP3M, LFT3, LIPA4, ACET4, MDIFF, PCAL, HEPAN, TANNER #### [facility] [address] [place] [phone] MANUAL DIFF Collected: 08/12/2018 Status: F Source: [facility] 5:25 AM SYSTEM REPOSITORY TYPE CODE TESTS RESULT OUT OF REFERENCE UNITS RANGE LAB NEUTR % Seg Neutrophils 49 LAB BANDS % Bands 47 LAB LYMPH % Lymphocytes 2 LAB MONOC % Monocytes 2 LAB EO 1-6 % Low Eosinophils 0 LAB BASO 0-2 % Basophils Normal 0 LAB ANCM 2.2-8.2 10*3/uL Abs Neutrophile High Cnt 24.9 LAB ALCM 1.1-4.5 10*3/uL Low Abs Lymph Cnt 0.5 LAB AMCM 0.2-1.1 10*3/uL Abs Monocyte Cnt Normal 0.5 LAB AECM 0.0-0.5 10*3/uL Abs Eosin Cnt Normal 0.0 LAB ABCM 0.0-0.2 10*3/uL Abs Baso Cnt Normal 0.0 LAB RBMOR NA RBC Morphology ABNORMAL LAB POIK NA Poikilocytosis SLIGHT LAB OVAL NA Ovalocytes SLIGHT LAB RADHA NA [place] Cells SLIGHT LAB DOHLE NA Dohle Bodies SLIGHT LAB LIMIT NA Cells counted 100 LAB DIFCM NA Comment: SLIDE SCANNED Performed By: #### HEMDF, PT, BMP3M, LFT3, LIPA4, ACET4, MDIFF, PCAL, HEPAN, TANNER #### [facility] [address] [place] [phone] PROCALCITONIN Collected: 08/12/2018 Status: F Source: [facility] 5:25 AM SYSTEM REPOSITORY TYPE CODE TESTS RESULT OUT OF RANGE REFERENCE UNITS LAB PRO <0.10 ng/mL Procalcitonin Abnormal 51.55 LAB INT3 NA Interpretation See Below Result Comment: PCT <0.50 = Low risk of severe sepsis and/or septic shock. PCT >2.00 = High risk of severe sepsis and/or septic shock. Performed By: #### HEMDF, PT, BMP3M, LFT3, LIPA4, ACET4, MDIFF, PCAL, HEPAN, TANNER #### [facility] [address] [place] [phone] ACUTE HEPATITIS PANEL Collected: 08/12/2018 Status: F Source: [facility] 5:25 AM SYSTEM REPOSITORY TYPE CODE TESTS RESULT OUT OF RANGE REFERENCE UNITS LAB HBSAG Not-Detected NA Normal Hep B Surface NOT DETECTED Ag LAB BCORE Not-Detected NA Normal Hep B Core IgM NOT DETECTED LAB HAVAB Not-Detected NA Normal Hep A Virus NOT DETECTED Ab,IgM LAB HEPC Not-Detected NA Normal Hep C Antibody NOT DETECTED Result Comment: Patients with DETECTED Hepatitis C Ab results should have a new specimen submitted for supplemental testing with a Hepatitis C Quantitative RNA assay (viral load), if clinically indicated. Performed By: #### HEMDF, PT, BMP3M, LFT3, LIPA4, ACET4, MDIFF, PCAL, HEPAN, TANNER #### [facility] [address] [place] [phone] ANTI-NUCLEAR ANTIBODY Collected: 08/12/2018 Status: F Source: [facility] 5:25 AM SYSTEM REPOSITORY TYPE CODE TESTS RESULT OUT OF RANGE REFERENCE UNITS LAB NAKUL <1:40 {titer} 1 : Abnormal TANNER Titer 160 LAB ANAP NA TANNER Pattern Homogenous Performed By: #### HEMDF, PT, BMP3M, LFT3, LIPA4, ACET4, MDIFF, PCAL, HEPAN, TANNER #### [facility] [address] [place] [phone] ANTI-MITOCHONDIAL AB Collected: Status: F Source: [facility] 08/12/2018 5:25 AM SYSTEM REPOSITORY TYPE CODE TESTS RESULT OUT OF RANGE REFERENCE UNITS LAB AMAR 0.0-20.0 Units 4.7 Anti-Mitocho ndrial Ab Result Comment: INTERPRETIVE INFORMATION: Mitochondrial (M2) Antibody, IgG 20.0 Units or less ......... Negative 20.1 - 24.9 Units........... Equivocal 25.0 Units or greater....... Positive Performed by [facility], [address] [place] [id number] [email or web address], Jeffery Manning MD - Lab. Director Performed By: #### AMPAULA Francis #### The performing lab is in the report. ANTI-SMOOTH MUSCLE AB Collected: 08/12/2018 Status: F Source: [facility] (F-ACTIN) 5:25 AM SYSTEM REPOSITORY TYPE CODE TESTS RESULT OUT OF REFERENCE UNITS RANGE LAB ASMR 0-19 Units Anti-Smooth 14 Muscle Ab Result Comment: If F-Actin (Smooth Muscle) Antibody, IgG is negative, the Smooth Muscle Antibody titer by IFA is not performed. INTERPRETIVE INFORMATION: F-Actin (Smooth Muscle) Antibody, IgG by MADDY 19 Units or less ....... Negative 20 - 30 Units .......... Weak Positive-Suggest repeat testing in two to three weeks with fresh specimen. 31 Units or greater..... Positive-Suggestive of autoimmune hepatitis type 1 or chronic active hepatitis. F-actin IgG antibodies have been shown to have increased sensitivity for autoimmune hepatitis (AIH) but lower specificity than smooth muscle antibodies (SMA). F-actin IgG antibodies can also be seen in SMA-negative disease controls (non-AIH), especially in patients with primary biliary cirrhosis and chronic hepatitis C infections. Some patients with AIH may be SMA-positive but negative for F-actin IgG. Consider testing for SMA by IFA if suspicion for AIH is strong. Performed by [facility], [address] [place] [id number] [email or web address], Jeffery Manning MD - Lab. Director Performed By: #### AMA2, PAULA #### The performing lab is in the report. NM HEPATOBILIARY SYSTEM Observed: 08/11/2018 Status: F Source: [facility] W/ PHARM 4:14 PM SYSTEM REPOSITORY Patient Name: SIGIFREDO MENDIETA Nuc Med Exam Date/Time 08/11/2018 14:02:16 EDT Exam NM Hepatobiliary Duct System Imaging Ordering Physician MD EVAN, KAMRYN Day Accession Number [id number] CPT4 Codes 10272 () Reason For Exam NAUSEA, VOMITING Report Indication: Nausea and vomiting. Abnormal liver function tests The patient was injected with 3 mCi of tech 99m Choletec and serial images over the right upper quadrant were obtained for 1 hour. There is uptake of radiotracer by the liver which persists at one hour. There is no significant excretion of radiotracer into the biliary tree or small bowel by one hour. The gallbladder is not visualized. Some mild enterogastric reflux is visualized. The patient was given a posterior dose of 1 mCi of tech 99m Choletec. The patient returned to department for 4 hour delayed images. There is persistent radiotracer accumulation identified throughout the liver. Again, the gallbladder is not visualized. No significant small bowel is visualized. Mild enterogastric reflux is again identified. Impression: 1. Persistent radiotracer accumulation throughout the liver at 4 hours with nonvisualization of the gallbladder and no significant excretion into the small bowel. As no biliary ductal dilatation is identified on recent CT scan, this is probably related to hepatocellular dysfunction. As no significant radiotracer has been excreted into the biliary tree, evaluation for cystic duct patency or obstruction is not possible. 2. Mild enterogastric reflux. Report Dictated on Final Dictated: 08/11/2018 4:14 pm Dictating Physician: DO HANSEN ANTHONY Signed Date and Time: 08/11/2018 4:33 pm Signed by: DO HANSEN ANTHONY Transcribed Date and Time: 08/11/2018 4:14 US ABDOMEN LIMITED Observed: 08/11/2018 Status: F Source: [facility] 3:15 AM SYSTEM REPOSITORY Patient Name: SIGIFREDO MENDIETA Ultrasound Exam Date/Time 08/11/2018 03:03:45 EDT Exam US Abdomen Limited Ordering Physician BRENNA FOLEY JOHN M Accession Number [id number] CPT4 Codes 56468 () Reason For Exam RUQ, elevated LFT Report ULTRASOUND RUQ: INDICATION: Right upper quadrant pain, elevated LFTs COMPARISON: 07/18/2018 Sonogram of the right upper quadrant is performed. The liver is normal in echotexture. No hyper or hypoechoic masses are seen. There is no intrahepatic biliary ductal dilatation. The gallbladder is normally distended. There are no gallstones, internal echoes, wall thickening, or pericholecystic fluid collections. The common bile duct diameter of 6.8 mm is within normal limits. The pancreas is homogenous in echotexture. No obvious pancreatic mass or peripancreatic fluid collection is identified. The visualized portions of the aorta and IVC are normal. Cursory examination of the right kidney is performed. The right kidney measures 11.4 x 6.1 x 4.9 cm. There is no hydronephrosis. There is no ascites in the right upper quadrant. No sonographic Contreras's sign was elicited during the examination. IMPRESSION: Unremarkable ultrasound of the right upper quadrant of the abdomen. Report Dictated on Workstation: [id number] Final Dictated: 08/11/2018 3:15 am Dictating Physician: DO GUPTA ALFRED Signed Date and Time: 08/11/2018 3:27 am Signed by: DO GUPTA ALFRED Transcribed Date and Time: 08/11/2018 3:15 CT ABDOMEN/PELVIS W/O Observed: 08/11/2018 Status: F Source: [facility] CONTRAST 1:59 AM SYSTEM REPOSITORY Patient Name: SIGIFREDO MENDIETA CT Exam Date/Time 08/11/2018 01:47:[address] Abdomen/Pelvis (No PO, No IV) Ordering Physician KATHY APODACA PETER J Accession Number [id number] CPT4 Codes 20797 (CT Abdomen/Pelvis (No PO, No IV)) Reason For Exam ABDOMINAL PAIN Report CT SCAN OF THE ABDOMEN AND PELVIS WITHOUT CONTRAST: INDICATION: Right-sided abdominal pain COMPARISON: 07/18/2018. CT scans of the abdomen and pelvis were performed without intravenous contrast administration, with images from the lung bases through the pubic symphysis. The images are reviewed in the axial, sagittal and coronal planes. The lung bases are clear. The cardiac silhouette is satisfactory. The liver is normal in size, shape and attenuation. There are no focal liver masses. The gallbladder is normal. The biliary tree is decompressed. The pancreas is unremarkable. The spleen is unremarkable. Evaluation of the upper GI tract demonstrates the stomach to be unremarkable. The duodenum is satisfactory in appearance. The small bowel is unremarkable. There is no mucosal thickening. No zone of transition is appreciated. There is no free fluid nor free air. Evaluation of the colon demonstrate no evidence of obstruction or mass lesion. There is no mucosal thickening of the colon. The appendix is not visualized but no inflammatory process of the right lower quadrant is seen. No history is provided as to whether the patient has had a prior appendectomy. The adrenal glands are unremarkable. The renal contours are slightly lobulated. Renal cortical thinning is suspected and there are bilateral renal cysts. There are no mass lesions nor evidence of obstruction. No calculi are seen. Scans through the pelvis demonstrate rectosigmoid diverticulosis without an acute inflammatory process. The bladder is unremarkable. The remainder of the pelvic contents are unremarkable. There is no mass or adenopathy. There is no free fluid. Arthritic changes of the spine with marginal spurring are noted. There has been a prior L3-L5 posterior fusion. The retroperitoneum is unremarkable. There is no mass or adenopathy. Dense atherosclerosis of the aorta, iliac and mesenteric arteries is noted. IMPRESSION: No acute process. No mass or inflammatory process is seen. Extensive atherosclerosis. Bilateral renal cysts. No renal obstruction. Report Dictated on Workstation: [id number] Final Dictated: 08/11/2018 1:59 am Dictating Physician: DO GUPTA ALFRED Signed Date and Time: 08/11/2018 2:06 am Signed by: DO GUPTA ALFRED Transcribed Date and Time: 08/11/2018 1:59 CR CHEST PORTABLE Observed: 08/10/2018 Status: F Source: [facility] 9:29 PM SYSTEM REPOSITORY Patient Name: SIGIFREDO MENDIETA Diagnostic Radiology Exam Date/Time 08/10/2018 21:27:08 EDT Exam CR Chest Portable Ordering Physician KATHY APODACA PETER J Accession Number [id number] CPT4 Codes 59046 () Reason For Exam pain Report Examination: AP portable chest Clinical Indication: pain Comparison: 07/20/2018 Findings: Lungs appear normally inflated. Minimal subsegmental atelectasis in the left lower lung. Trace pleural thickening left costophrenic angle. There is no focal consolidation, effusion, or pulmonary edema identified. Heart size mildly enlarged. Sternotomy wires are present. Left-sided pacemaker extends leads to the right atrium and right ventricle. Atherosclerotic calcification aorta. Degenerative changes shoulders and spine. Impression: Mild cardiomegaly. Left basilar subsegmental atelectasis. No acute pulmonary process. Report Dictated on Final Dictated: 08/10/2018 9:29 pm Dictating Physician: MD SINGER ANTHONY J Signed Date and Time: 08/10/2018 9:30 pm Signed by: MD LUCRECIA, BRIAN Kennedy Transcribed Date and Time: 08/10/2018 9:29 HEMOGRAM W/ AUTODIFF Collected: 08/10/2018 Status: F Source: [facility] 7:26 PM SYSTEM REPOSITORY TYPE CODE TESTS RESULT OUT OF REFERENCE UNITS RANGE LAB IWBC 3.6-10.7 10*3/uL WBC High 15.6 LAB RBC 4.40-5.90 10*6/uL Low RBC 4.10 LAB HGB 13.0-18.0 g/dL Low Hemoglobin 11.3 LAB HCT 40.0-52.0 % Low Hematocrit 34.7 LAB MCV 80.0-98.0 fL MCV Normal 84.6 LAB MCH 26.0-34.0 pg MCH Normal 27.5 LAB MCHC 32.0-36.0 % MCHC Normal 32.4 LAB RDW 11.5-14.5 % RDW High 14.7 LAB PLT 140-440 10*3/uL Platelet Normal 255 LAB MPV 7.4-10.4 fL MPV Normal 8.6 LAB GRAN% 40.0-80.0 % Granulocytes High 91.7 LAB LYMP% 20.0-40.0 % Low Lymphocytes 4.0 LAB MONO% 2.0-10.0 % Monocytes Normal 3.8 LAB EOS% 1.0-6.0 % Low Eosinophils 0.1 LAB BAS% 0.0-2.0 % Basophils Normal 0.4 LAB ANC 1.8-7.0 10*3/uL Abs High Neutrophile Cnt 14.3 LAB ALC 1.0-4.3 10*3/uL Low Abs Lymph Cnt 0.6 LAB AMC 0.0-0.8 10*3/uL Abs Monocyte Normal Cnt 0.6 LAB AEC 0.0-0.5 10*3/uL Abs Eosin Cnt Normal 0.0 LAB ABC 0.0-0.2 10*3/uL Abs Baso Cnt Normal 0.1 Performed By: #### HEMDF, CMP3 #### [facility] [address] [place] [address] COMP METABOLIC PANEL Collected: 08/10/2018 Status: F Source: [facility] 7:26 PM SYSTEM REPOSITORY TYPE CODE TESTS RESULT OUT OF RANGE REFERENCE UNITS LAB NA3 137-145 mmol/L Sodium Normal 142 LAB K3 3.5-5.1 mmol/L Normal Potassium 4.1 LAB CL3 98-107 mmol/L High Chloride 109 LAB CO23 22-30 mmol/L Carbon Normal Dioxide 22 LAB ANIN3 NA Anion Gap 11 LAB GLUC3 70-100 mg/dL High Glucose 235 LAB BUN3 7-20 mg/dL High Urea Nitrogen 28 LAB CRET3 0.52-1.25 mg/dL High Creatinine 1.68 LAB GF3BR >60 mL/min eGFR 48.0 LAB GF3WR >60 mL/min eGFR OTHER 39.6 Result Comment: Source- MDRD equation with creatinine calibration to IDMS(NKDEP) eGFR not recommended for drug dose adjustment LAB CA3 8.4-10.4 mg/dL Calcium Normal 9.4 LAB ALB3 3.5-5.0 g/dL Albumin, Serum Normal 4.3 LAB TP3 6.3-8.2 g/dL Total Protein Normal 7.1 LAB BILT3 0.2-1.3 mg/dL High Bilirubin,Total 1.8 LAB ALKP3 38-126 U/L High Alkaline Phosphatase 169 LAB ALT3 13-69 U/L High ALT (SGPT) 281 LAB AST3 15-46 U/L High AST (SGOT) 550 Performed By: #### HEMDF, CMP3 #### [facility] [address] [phone] ED PROVIDER NOTE Observed: 08/10/2018 Status: F Source: [facility] 7:11 PM SYSTEM REPOSITORY Emergency Department Encounter [facility] Patient: Sigifredo Mendieta : 1940 Date of Evaluation: 08/10/2018 ED Supervising Physician: Mesfin Zamorano MD I independently examined and evaluated Sigifredo Mendieta. In brief, Sigifredo Mendieta is a 78 y.o. male that presents to the emergency department with complaint of abdominal pain. Patient states pain is located on the RIGHT side. Patient has prior history of appendectomy. Focused exam: She is noted to be hypoxic with oxygen saturation 85-86 percent on room air. Lungs reveal crackles at the base on the RIGHT posteriorly. All diagnostic, treatment, and disposition decisions were made by myself in conjunction with the CECILE/Resident. For all further details of the patient's emergency department visit, please see their documentation. (Please note that portions of this note may have been completed with a voice recognition program. 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 Abdominal Pain 08/24 epigastric ? Emesis ? Nausea HISTORY OF PRESENT ILLNESS (Location/Symptom, Timing/Onset, Context/Setting, Quality, Duration, Modifying Factors, Severity) Note limiting factors. HPI Sigifredo Mendieta is a 78 y.o. male who presents to the emergency department Coming in with complaint of right-sided abdominal pain that started this morning. One episode of nausea and vomiting but has had continuous nausea. No alleviating factors. Loose stool diarrhea as well. Had pacer put in over Labor Day weekend. Denies associated chest pain or shortness breath. No abnormal swelling of his hands or feet. No history of surgical abdomen. No fevers no chills. No alleviating factors. Constant ache. Nursing Notes were reviewed. REVIEW OF SYSTEMS (2+ for level 4; 10+ for level 5) Review of Systems 10 point review of systems negative except for pertinent mentioned above in history of present illness above past medical history PAST MEDICAL HISTORY Past Medical History: Diagnosis Date ? (aortic stenosis) Mild ? BPH (benign prostatic hyperplasia) ? CAD (coronary artery disease) ? CKD (chronic kidney disease) ? Diabetes mellitus (HCC) ? Fibromyalgia ? Heart failure (HCC) CV: EF 45%, hx of CABG/Stents in past, also with ablation for rhythm in past: ASA, Amio, imdur, coreg, lasix ? Hyperlipidemia ? Hypertension ? 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 LV dysfunction ? PFO (patent foramen ovale) Small ? Presence of stent in LAD coronary artery 05/28/2017 NYLA ? Presence of stent in LAD coronary artery ? RBBB (right bundle branch block) ? Rheumatoid arthritis (HCC) ? Sleep apnea ? Ventricular tachycardia (HCC) SURGICAL HISTORY Past Surgical History: Procedure Laterality Date ? ABLATION OF DYSRHYTHMIC FOCUS 06/2013 ? AORTIC VALVE REPLACEMENT 2008 Surgical replacement ? APPENDECTOMY ? BRONCHOSCOPY ? COLONOSCOPY ? CORONARY ANGIOPLASTY 03/2007 ? CORONARY ARTERY [employer] ? DIAGNOSTIC CARDIAC HEALTH OUTCOMES LIAISON PROCEDURE Left 06/2013 ? DIAGNOSTIC CARDIAC HEALTH OUTCOMES LIAISON PROCEDURE Left 05/28/2017 severe cad CURRENT MEDICATIONS Previous Medications AMLODIPINE (NORVASC) 5 MG TABLET Take 1 tablet by mouth daily ASPIRIN 81 MG TABLET Take 81 mg by mouth daily ATORVASTATIN (LIPITOR) 40 MG TABLET Take 40 mg by mouth daily CALCIUM CARBONATE-VITAMIN D (OS-EFREM 500 + D PO) Take 1 tablet by mouth daily CARVEDILOL (COREG) 12.5 MG TABLET Take 1 tablet by mouth 2 times daily (with meals) FERROUS SULFATE 325 (65 FE) MG TABLET Take 325 mg by mouth 2 times daily FINASTERIDE (PROSCAR) 5 MG TABLET Take 5 mg by mouth daily FUROSEMIDE (LASIX) 20 MG TABLET Take 20 mg by mouth daily HYDRALAZINE (APRESOLINE) 50 MG TABLET Take 50 mg by mouth 3 times daily HYDROXYCHLOROQUINE (PLAQUENIL) 200 MG TABLET Take 200 mg by mouth daily ISOSORBIDE MONONITRATE (IMDUR) 30 MG EXTENDED RELEASE TABLET Take 1 tablet by mouth daily LISINOPRIL (PRINIVIL;ZESTRIL) 20 MG TABLET Take 1 tablet by mouth 2 times daily PANTOPRAZOLE (PROTONIX) 40 MG TABLET Take 1 tablet by mouth every morning (before breakfast) POTASSIUM CHLORIDE (KLOR-CON M20) 20 MEQ EXTENDED RELEASE TABLET Take 20 mEq by mouth daily TAMSULOSIN (FLOMAX) 0.4 MG CAPSULE Take 0.4 mg by mouth daily TRAMADOL (ULTRAM) 50 MG TABLET Take 50 mg by mouth every 6 hours as needed for Pain.. ALLERGIES Advicor [niacin-lovastatin er]; Amiodarone; Crestor [rosuvastatin]; Penicillins; and Hydralazine hcl FAMILY HISTORY Family History Problem Relation Age of Onset ? Heart Disease Father ? Heart Attack Father ? Heart Disease Brother ? Diabetes Brother ? COPD Brother ? Other Mother brain aneurysn ? Heart Disease Sister ? Heart Disease Brother ? Heart Disease Sister ? Heart Disease Sister ? Heart Disease Brother ? Heart Disease Brother ? Heart Disease Brother SOCIAL HISTORY Social History Social History ? Marital status: Spouse name: N/A ? Number of children: N/A ? Years of education: N/A Social History Main Topics ? Smoking status: Never Smoker ? Smokeless tobacco: Never Used ? Alcohol use No ? Drug use: No Comment: Caffeiene use; 1 cup of coffee every morning ? Sexual activity: Not Asked Other Topics Concern ? None Social History Narrative ? None SCREENINGS PHYSICAL EXAM (5+ for level 4, 8+ for level 5) ED Triage Vitals BP Temp Temp src Pulse Resp SpO2 Height Weight -- -- -- -- -- -- -- -- Physical Exam GENERAL: The patient appears nourished and normally developed. Vital signs as documented. EYES: Head exam is unremarkable. No scleral icterus or orbital trauma noted. HEENT: Mucous membranes moist. Nares patent without copious rhinorrhea. No enlarged lymphadenopathy. LUNGS: Lungs are clear to auscultation, without any respiratory distress. CARDIAC: Rhythm is regular. No dysrythmias or murmurs. ABDOMEN: Right sided mid abdominal pain negative rebound negative Contreras's tenderness to touch in this area with some guarding otherwise soft nondistended and nontender bowel sounds normal EXTREMITIES: Non edematous, with no obvious deformities. SKIN: Good color, with no significant rashes. No pallor. NEURO: No obvious neurological deficits, normal sensation and strength bilaterally. patient able to ambulate. DIAGNOSTIC RESULTS EKG (Per Emergency Physician) RADIOLOGY (Per Emergency Physician): Interpretation per the Radiologist below, if available at the time of this note: Xr Chest Portable Result Date: 08/10/2018 Patient Name: SIGIFREDO MENDIETA ---Diagnostic Radiology--- Exam Date/Time 08/10/2018 21:27:08 EDT Exam CR Chest Portable Ordering Physician KATHY APODACA PETER J Accession Number [id number] CPT4 Codes 76134 () Reason For Exam pain Report Examination: AP portable chest Clinical Indication: pain Comparison: 07/20/2018 Findings: Lungs appear normally inflated. Minimal subsegmental atelectasis in the left lower lung. Trace pleural thickening left costophrenic angle. There is no focal consolidation, effusion, or pulmonary edema identified. Heart size mildly enlarged. Sternotomy wires are present. Left-sided pacemaker extends leads to the right atrium and right ventricle. Atherosclerotic calcification aorta. Degenerative changes shoulders and spine. Impression: Mild cardiomegaly. Left basilar subsegmental atelectasis. No acute pulmonary process. Report Dictated on --- Final --- Dictated: 08/10/2018 9:29 pm Dictating Physician: MD SINGER ANTHONY J Signed Date and Time: 08/10/2018 9:30 pm Signed by: MD SINGER ANTHONY J Transcribed Date and Time: 08/10/2018 9:29 LABS: Labs Reviewed COMPREHENSIVE METABOLIC PANEL - Abnormal; Notable for the following: Result Value Chloride 109 (*) Glucose 235 (*) BUN 28 (*) CREATININE 1.68 (*) Total Bilirubin 1.8 (*) Alkaline Phosphatase 169 (*) ALT 281 (*) AST 550 (*) All other components within normal limits Narrative: Test Performed by [facility], [address] [place] [address] CBC WITH AUTO DIFFERENTIAL - Abnormal; Notable for the following: WBC 15.6 (*) RBC 4.10 (*) Hemoglobin 11.3 (*) Hematocrit 34.7 (*) RDW 14.7 (*) Granulocytes % 91.7 (*) Lymphocyte % 4.0 (*) Eosinophils 0.1 (*) Absolute Neut # 14.3 (*) Absolute Lymph # 0.6 (*) All other components within normal limits Narrative: Test Performed by [facility], [address] [place] [id number] All other labs were within normal range or not returned as of this dictation. EMERGENCY DEPARTMENT COURSE and DIFFERENTIAL DIAGNOSIS/MDM: Vitals: Vitals: 08/10/18191708/10/182126 BP: (!) 154/89 (!) 144/66 Pulse: 81 85 Resp: Temp: 97.6 ?F (36.4 ?C) TempSrc: Oral SpO2: 96% 96% Weight: 88 kg (194 lb) Height: 5' 6 (1.676 m) Medications sodium chloride flush 0.9 % injection 3 mL (3 mLs Intravenous Given 08/10/181927) diatrizoate meglumine-sodium (GASTROGRAFIN) 66-10 % solution 30 mL ( Oral Canceled Entry 08/10/182027) diatrizoate meglumine-sodium (GASTROGRAFIN) 66-10 % solution 30 mL (30 mLs Oral Given 08/10/182027) morphine (PF) injection 4 mg (4 mg Intravenous Given 08/10/181933) ondansetron (ZOFRAN) injection 4 mg (4 mg Intravenous Given 08/10/181933) [facility]. Patient was seen by myself and the attending. Individually evaluated by Dr. Zamorano. Patient presented with abdominal pain. Has IV allergy contraindication with decreased GFR. We'll give oral contrast instead for examination of CT for his right-sided abdominal pain. CMP shows elevated glucose at 235, no concern for DKA, creatinine of 1.68 with a GFR of 39.6 which is why we opted to use oral contrast instead of IV contrast. Does have elevated LFTs which these be a concern of gallbladder etiology that is causing his pain. Patient's daughter and son presented to the ER and they did state that he had a history of an appendectomy and was concerned because he has been eating a lot of fatty and greasy foods today. She states he ate about a pound of small today which could have causes her increased pain. Hemogram shows elevated white blood count 15.6 this is just for infectious etiology. I was done because of patient was laying [place] did notice some very minor crackles in his bases but x-ray shows no acute pulmonary process. He does not appear to be short of breath. He was saturating 90% so oxygen was placed. The patient's baseline. Pain is controlled with morphine. Awaiting results of CT scan. See Dr. Zamorano's note s Signed off to Renu GOODMAN CONSULTS: None PROCEDURES: Unless otherwise noted below, none Procedures FINAL IMPRESSION 1. Pain of upper abdomen DISPOSITION/PLAN DISPOSITION PATIENT REFERRED TO: No follow-up provider specified. DISCHARGE MEDICATIONS: New Prescriptions No medications on file (Please note: Portions of this note were completed with a voice recognition program. Efforts were made to edit the dictations but occasionally words and phrases are mis-transcribed.) Form [id number] BETINA WASHINGTON CNP (electronically signed) Emergency Medicine Provider BETINA Washington CNP 08/10/182225 BETINA Washington CNP 08/10/182226 BETINA Washington CNP 08/10/18 2250 ED PROVIDER NOTE Observed: 08/10/2018 Status: F Source: [facility] 7:11 PM SYSTEM REPOSITORY Emergency Department Encounter Location: [facility] Patient: Sigifredo Mendieta : 1940 Date of evaluation: 08/10/2018 ED Provider: REX Mayo 10:45PM Sigifredo Mendieta was checked out to me by CECILE Cholo Valentine. Please see his/her initial documentation for details of the patient's initial ED presentation, physical exam and completed studies. In brief, Sigifredo Mendieta is a 78 y.o. male that presented to the emergency department for chief complaint of right-sided abdominal pain that worsened this morning. He states that it has been coming and going for about 2 weeks now and he had one episode of nausea and vomiting but he continues to have nausea. Denies any diarrhea, chest pain, shortness of breath. Patient denies any fever however he states he has mild chills. Nothing makes the pain better or worse. Does not have a history as happening before. Patient states that his appendix has been removed however he still does have a gallbladder.. Patient denies having any blood in the stool. No other complaints the patient this time. I have reviewed and interpreted all of the currently available lab results and diagnostics from this visit: Results for orders placed or performed during the hospital encounter of 08/11/18 Comprehensive Metabolic Panel Result Value Ref Range Sodium 142 137 - 145 mmol/L Potassium 4.1 3.5 - 5.1 mmol/L Chloride 109 (H) 98 - 107 mmol/L CO2 22 22 - 30 mmol/L Anion Gap 11 NA Glucose 235 (H) 70 - 100 mg/dL BUN 28 (H) 7 - 20 mg/dL CREATININE 1.68 (H) 0.52 - 1.25 mg/dL eGFR 48.0 >60 mL/min EGFR IF NonAfrican [place]ican 39.6 >60 mL/min Calcium 9.4 8.4 - 10.4 mg/dL Albumin,Serum 4.3 3.5 - 5.0 g/dL Total Protein 7.1 6.3 - 8.2 g/dL Total Bilirubin 1.8 (H) 0.2 - 1.3 mg/dL Alkaline Phosphatase 169 (H) 38 - 126 U/L ALT 281 (H) 13 - 69 U/L AST 550 (H) 15 - 46 U/L Hemogram (CBC) w/Auto Diff Result Value Ref Range WBC 15.6 (H) 3.6 - 10.7 10*3/uL RBC 4.10 (L) 4.40 - 5.90 10*6/uL Hemoglobin 11.3 (L) 13.0 - 18.0 g/dL Hematocrit 34.7 (L) 40.0 - 52.0 % MCV 84.6 80.0 - 98.0 fL MCH 27.5 26.0 - 34.0 pg MCHC 32.4 32.0 - 36.0 % RDW 14.7 (H) 11.5 - 14.5 % Platelets 255 140 - 440 10*3/uL MPV 8.6 7.4 - 10.4 fL Granulocytes % 91.7 (H) 40.0 - 80.0 % Lymphocyte % 4.0 (L) 20.0 - 40.0 % Monocytes 3.8 2.0 - 10.0 % Eosinophils 0.1 (L) 1.0 - 6.0 % Basophils 0.4 0.0 - 2.0 % Absolute Neut # 14.3 (H) 1.8 - 7.0 10*3/uL Absolute Lymph # 0.6 (L) 1.0 - 4.3 10*3/uL Absolute Real # 0.6 0.0 - 0.8 10*3/uL Absolute Eos # 0.0 0.0 - 0.5 10*3/uL Absolute Baso # 0.1 0.0 - 0.2 10*3/uL Xr Chest Portable Result Date: 08/10/2018 Patient Name: SIGIFREDO MENDIETA ---Diagnostic Radiology--- Exam Date/Time 08/10/2018 21:27:08 EDT Exam CR Chest Portable Ordering Physician KATHY APODACA PETER J Accession Number [id number] CPT4 Codes 23808 () Reason For Exam pain Report Examination: AP portable chest Clinical Indication: pain Comparison: 07/20/2018 Findings: Lungs appear normally inflated. Minimal subsegmental atelectasis in the left lower lung. Trace pleural thickening left costophrenic angle. There is no focal consolidation, effusion, or pulmonary edema identified. Heart size mildly enlarged. Sternotomy wires are present. Left-sided pacemaker extends leads to the right atrium and right ventricle. Atherosclerotic calcification aorta. Degenerative changes shoulders and spine. Impression: Mild cardiomegaly. Left basilar subsegmental atelectasis. No acute pulmonary process. Report Dictated on --- Final --- Dictated: 08/10/2018 9:29 pm Dictating Physician: MD SINGER ANTHONY J Signed Date and Time: 08/10/2018 9:30 pm Signed by: MD SINGER ANTHONY J Transcribed Date and Time: 08/10/2018 9:29 Us Abdomen Limited Result Date: 08/11/2018 Patient Name: SIGIFREDO MENDIETA ---Ultrasound--- Exam Date/Time 08/11/2018 03:03:45 EDT Exam US Abdomen Limited Ordering Physician BRENNA FOLEY, RENU Darden Accession Number [id number] CPT4 Codes 45497 () Reason For Exam RUQ, elevated LFT Report ULTRASOUND RUQ: INDICATION: Right upper quadrant pain, elevated LFTs COMPARISON: 07/18/2018 Sonogram of the right upper quadrant is performed. The liver is normal in echotexture. No hyper or hypoechoic masses are seen. There is no intrahepatic biliary ductal dilatation. The gallbladder is normally distended. There are no gallstones, internal echoes, wall thickening, or pericholecystic fluid collections. The common bile duct diameter of 6.8 mm is within normal limits. The pancreas is homogenous in echotexture. No obvious pancreatic mass or peripancreatic fluid collection is identified. The visualized portions of the aorta and IVC are normal. Cursory examination of the right kidney is performed. The right kidney measures 11.4 x 6.1 x 4.9 cm. There is no hydronephrosis. There is no ascites in the right upper quadrant. No sonographic Contreras's sign was elicited during the examination. IMPRESSION: Unremarkable ultrasound of the right upper quadrant of the abdomen. Report Dictated on Workstation: [id number] --- Final --- Dictated: 08/11/2018 3:15 am Dictating Physician: DO GUPTA ALFRED Signed Date and Time: 08/11/2018 3:27 am Signed by: DO GUPTA ALFRED Transcribed Date and Time: 08/11/2018 3:15 Ct Abdomen Pelvis Wo Contrast Result Date: 08/11/2018 Patient Name: SIGIFREDO MENDIETA ---CT--- Exam Date/Time 08/11/2018 01:47:[address] Abdomen/Pelvis (No PO, No IV) Ordering Physician KATHY APODACA PETER J Accession Number [id number] CPT4 Codes 82776 (CT Abdomen/Pelvis (No PO, No IV)) Reason For Exam ABDOMINAL PAIN Report CT SCAN OF THE ABDOMEN AND PELVIS WITHOUT CONTRAST: INDICATION: Right- sided abdominal pain COMPARISON: 07/18/2018. CT scans of the abdomen and pelvis were performed without intravenous contrast administration, with images from the lung bases through the pubic symphysis. The images are reviewed in the axial, sagittal and coronal planes. The lung bases are clear. The cardiac silhouette is satisfactory. The liver is normal in size, shape and attenuation. There are no focal liver masses. The gallbladder is normal. The biliary tree is decompressed. The pancreas is unremarkable. The spleen is unremarkable. Evaluation of the upper GI tract demonstrates the stomach to be unremarkable. The duodenum is satisfactory in appearance. The small bowel is unremarkable. There is no mucosal thickening. No zone of transition is appreciated. There is no free fluid nor free air. Evaluation of the colon demonstrate no evidence of obstruction or mass lesion. There is no mucosal thickening of the colon. The appendix is not visualized but no inflammatory process of the right lower quadrant is seen. No history is provided as to whether the patient has had a prior appendectomy. The adrenal glands are unremarkable. The renal contours areslightly lobulated. Renal cortical thinning is suspected and there are bilateral renal cysts. There are no mass lesions nor evidence of obstruction. No calculi are seen. Scans through the pelvis demonstrate rectosigmoid diverticulosis without an acute inflammatory process. The bladder is unremarkable. The remainder of the pelvic contents are unremarkable. There is no mass or adenopathy. There is no free fluid. Arthritic changes of the spine with marginal spurring are noted. There has been a prior L3-L5 posterior fusion. The retroperitoneum is unremarkable. There is no mass or adenopathy. Dense atherosclerosis of the aorta, iliac and mesenteric arteries is noted. IMPRESSION: No acute process. No mass or inflammatory process is seen. Extensiveatherosclerosis. Bilateral renal cysts. No renal obstruction. Report Dictated on Workstation: [id number] --- Final --- Dictated: 08/11/2018 1:59 am Dictating Physician: DO GUPTA ALFRED Signed Date and Time: 08/11/2018 2:06 am Signed by: DO GUPTA ALFRED Transcribed Date and Time: 08/11/2018 1:59 Final ED Course and MDM: In brief, Sigifredo Mendieta is a 78 y.o. male whose care was signed out to me by the outgoing provider. Patient's CT scan did not show any abnormalities nor did the ultrasound the bladder to suggest why the patient has increased LFTs. Patient also does some mild leukocytosis without any origin at this time. Patient will be brought into the hospital for full admission for further evaluation and management the patient's condition. I notified the family went home earlier this morning. Patient will be admitted in stable condition with stable vital signs. Reevaluation the patient before he went upstairs states that he does not have any nausea vomiting and his abdominal pain is controlled. Patient is nontoxic appearing. ED Medication Orders Start Ordered Status Ordering Provider 08/10/18201608/10/182017 diatrizoate meglumine-sodium (GASTROGRAFIN) 66-10 % solution 30 mL IMG ONCE PRN Last MAR action: Given - by MAURIZIO SERNA on 08/10/18 at 2027 CHOLO APODACA 08/10/18200808/10/182009 diatrizoate meglumine-sodium (GASTROGRAFIN) 66-10 % solution 30 mL IMG ONCE PRN Last MAR action: Canceled Entry - by MAURIZIO SERNA on 08/10/18 at 2027 CHOLO APODACA 08/10/18192908/10/181916 sodium chloride flush 0.9 % injection 3 mL EVERY 8 HOURS Last MAR action: Given - by MAURIZIO SERNA on 08/10/18 at 192 CHOLO APODACA 08/10/18192908/10/181916 morphine (PF) injection 4 mg ONCE Last MAR action: Given - by MAURIZIO SERNA on 08/10/18 at 1934 CHOLO APODACA 08/10/18192908/10/18 191 ondansetron (ZOFRAN) injection 4 mg ONCE Last MAR action: Given - by MAURIZIO SERNA on 08/10/18 at 1934 CHOLO APODACA Final Impression 1. Pain of upper abdomen 2. Elevated LFTs 3. Elevated bilirubin DISPOSITION Admitted 08/11/2018 04:26:27 AM (Please note that portions of this note may have been completed with a voice recognition program. Efforts were made to edit the dictations but occasionally words are mis-transcribed.) REX Mayo [employer] REX Mayo 08/11/18 0628 GLUCOSE,BEDSIDE Collected: 07/20/2018 Status: F Source: [facility] 5:28 PM SYSTEM REPOSITORY TYPE CODE TESTS RESULT OUT OF RANGE REFERENCE UNITS LAB BGLU 70-100 mg/dL High 126 Glucose,Beds jay Result Comment: Test performed by glucose meter. Results may be 10%-15% lower than serum/plasma values. (CLIA ID [id number]) Performed By: #### BGLU #### [facility] [address] [place] [address] GLUCOSE,BEDSIDE Collected: 07/20/2018 Status: F Source: [facility] 1:01 PM SYSTEM REPOSITORY TYPE CODE TESTS RESULT OUT OF RANGE REFERENCE UNITS LAB BGLU 70-100 mg/dL High 123 Glucose,Beds jay Result Comment: Test performed by glucose meter. Results may be 10%-15% lower than serum/plasma values. (CLIA ID [id number]) Performed By: #### BGLU #### [facility] [address] [place] [phone] CR CHEST PA/LAT Observed: 07/20/2018 Status: F Source: [facility] 8:57 AM SYSTEM REPOSITORY Patient Name: SIGIFREDO MENDIETA Diagnostic Radiology Exam Date/Time 07/20/2018 08:13:40 EDT Exam CR Chest PA/LAT Ordering Physician ANAND QUIJANO SHARON N Accession Number [id number] CPT4 Codes 95414 () Reason For Exam Over Penetrate Film Post Device Implant Report EXAM TYPE: RADIOLOGIC EXAMINATION, CHEST, SINGLE VIEW FRONTAL (CXR SINGLE VIEW) EXAM DATE AND TIME: 07/20/2018 8:13 AM EDT INDICATION: Device implant evaluation. COMPARISON: 07/18/2018 TECHNIQUE: Chest two views. IMPRESSION: 1. Lines/Tubes/Devices/Hardware: New pacer projects over left chest with leads in right atrium and right ventricle. Please confirm function of devices/catheters clinically. 2. Lungs: No consolidation or pulmonary edema. 3. Pleura: No definite effusion. No definite pneumothorax. 4. Heart and mediastinum: Stable cardiac enlargement. 5. Upper abdomen: No acute process seen. Report Dictated on Final Dictated: 07/20/2018 8:57 am Dictating Physician: MD MENDEZ JOHN Signed Date and Time: 07/20/2018 8:59 am Signed by: MD MENDEZ JOHN Transcribed Date and Time: 07/20/2018 8:57 HEMOGRAM W/ AUTODIFF Collected: 07/20/2018 Status: F Source: [facility] 3:19 AM SYSTEM REPOSITORY TYPE CODE TESTS RESULT OUT OF REFERENCE UNITS RANGE LAB IWBC 3.6-10.7 10*3/uL WBC High 12.3 LAB RBC 4.40-5.90 10*6/uL Low RBC 4.36 LAB HGB 13.0-18.0 g/dL Low Hemoglobin 11.9 LAB HCT 40.0-52.0 % Low Hematocrit 36.5 LAB MCV 80.0-98.0 fL MCV Normal 83.6 LAB MCH 26.0-34.0 pg MCH Normal 27.3 LAB MCHC 32.0-36.0 % MCHC Normal 32.7 LAB RDW 11.5-14.5 % RDW High 15.5 LAB PLT 140-440 10*3/uL Platelet Normal 208 LAB MPV 7.4-10.4 fL MPV Normal 9.5 LAB GRAN% 40.0-80.0 % Granulocytes High 81.6 LAB LYMP% 20.0-40.0 % Low Lymphocytes 5.7 LAB MONO% 2.0-10.0 % Monocytes High 11.8 LAB EOS% 1.0-6.0 % Low Eosinophils 0.4 LAB BAS% 0.0-2.0 % Basophils Normal 0.5 LAB ANC 1.8-7.0 10*3/uL Abs High Neutrophile Cnt 10.0 LAB ALC 1.0-4.3 10*3/uL Low Abs Lymph Cnt 0.7 LAB AMC 0.0-0.8 10*3/uL Abs Monocyte High Cnt 1.4 LAB AEC 0.0-0.5 10*3/uL Abs Eosin Cnt Normal 0.0 LAB ABC 0.0-0.2 10*3/uL Abs Baso Cnt Normal 0.1 Performed By: #### HEMDF, MG3, PHOS3, BMP3 #### [facility] [address] [place] [phone] MAGNESIUM Collected: 07/20/2018 Status: F Source: [facility] 3:19 AM SYSTEM REPOSITORY TYPE CODE TESTS RESULT OUT OF RANGE REFERENCE UNITS LAB MG3 1.6-2.3 mg/dL Normal Magnesium 1.9 Performed By: #### HEMDF, MG3, PHOS3, BMP3 #### [facility] [address] [place] [phone] PHOSPHORUS Collected: 07/20/2018 Status: F Source: [facility] 3:19 AM SYSTEM REPOSITORY TYPE CODE TESTS RESULT OUT OF RANGE REFERENCE UNITS LAB PHOS3 2.5-4.5 mg/dL Normal Phosphorus 4.0 Performed By: #### HEMDF, MG3, PHOS3, BMP3 #### [facility] [address] [place] [phone] BASIC METABOLIC PANEL Collected: 07/20/2018 Status: F Source: [facility] 3:19 AM SYSTEM REPOSITORY TYPE CODE TESTS RESULT OUT OF RANGE REFERENCE UNITS LAB NA3 137-145 mmol/L Sodium Normal 140 LAB K3 3.5-5.1 mmol/L Normal Potassium 3.6 LAB CL3 98-107 mmol/L High Chloride 110 LAB CO23 22-30 mmol/L Carbon Normal Dioxide 25 LAB ANIN3 NA Anion Gap 5 LAB GLUC3 70-100 mg/dL Glucose Normal 95 LAB BUN3 7-20 mg/dL High Urea Nitrogen 29 LAB CRET3 0.52-1.25 mg/dL High Creatinine 1.61 LAB GF3BR >60 mL/min eGFR 50.4 LAB GF3WR >60 mL/min eGFR OTHER 41.6 Result Comment: Source- MDRD equation with creatinine calibration to IDMS(NKDEP) eGFR not recommended for drug dose adjustment LAB CA3 8.4-10.4 mg/dL Normal Calcium 8.5 Performed By: #### HEMDF, MG3, PHOS3, BMP3 #### [facility] [address] [place] [address] GLUCOSE,BEDSIDE Collected: 07/19/2018 Status: F Source: [facility] 10:07 PM SYSTEM REPOSITORY TYPE CODE TESTS RESULT OUT OF RANGE REFERENCE UNITS LAB BGLU 70-100 mg/dL High 114 Glucose,Beds jay Result Comment: Test performed by glucose meter. Results may be 10%-15% lower than serum/plasma values. (CLIA ID [id number]) Performed By: #### BGLU #### [facility] [place] [place] GLUCOSE,BEDSIDE Collected: 07/19/2018 Status: F Source: [facility] 6:06 PM SYSTEM REPOSITORY TYPE CODE TESTS RESULT OUT OF RANGE REFERENCE UNITS LAB BGLU 70-100 mg/dL Normal 98 Glucose,Beds jay Result Comment: Test performed by glucose meter. Results may be 10%-15% lower than serum/plasma values. (CLIA ID [id number]) Performed By: #### BGLU #### [facility] [address] [place] [address] GLUCOSE,BEDSIDE Collected: 07/19/2018 Status: F Source: [facility] 9:54 AM SYSTEM REPOSITORY TYPE CODE TESTS RESULT OUT OF RANGE REFERENCE UNITS LAB BGLU 70-100 mg/dL High 137 Glucose,Beds jay Result Comment: Test performed by glucose meter. Results may be 10%-15% lower than serum/plasma values. (CLIA ID [id number]) Performed By: #### BGLU #### [facility] [place] [address] GLUCOSE,BEDSIDE Collected: 07/19/2018 Status: F Source: [facility] 4:27 AM SYSTEM REPOSITORY TYPE CODE TESTS RESULT OUT OF RANGE REFERENCE UNITS LAB BGLU 70-100 mg/dL High 144 Glucose,Beds jay Result Comment: Test performed by glucose meter. Results may be 10%-15% lower than serum/plasma values. (CLIA ID [id number]) Performed By: #### BGLU #### [facility] [address] [place] [address] HEMOGRAM W/ AUTODIFF Collected: 07/19/2018 Status: F Source: [facility] 2:08 AM SYSTEM REPOSITORY TYPE CODE TESTS RESULT OUT OF REFERENCE UNITS RANGE LAB IWBC 3.6-10.7 10*3/uL WBC High 12.5 LAB RBC 4.40-5.90 10*6/uL Low RBC 4.24 LAB HGB 13.0-18.0 g/dL Low Hemoglobin 11.5 LAB HCT 40.0-52.0 % Low Hematocrit 35.3 LAB MCV 80.0-98.0 fL MCV Normal 83.3 LAB MCH 26.0-34.0 pg MCH Normal 27.1 LAB MCHC 32.0-36.0 % MCHC Normal 32.5 LAB RDW 11.5-14.5 % RDW High 15.2 LAB PLT 140-440 10*3/uL Platelet Normal 235 LAB MPV 7.4-10.4 fL MPV Normal 9.0 LAB GRAN% 40.0-80.0 % Granulocytes High 82.9 LAB LYMP% 20.0-40.0 % Low Lymphocytes 5.6 LAB MONO% 2.0-10.0 % Monocytes High 11.1 LAB EOS% 1.0-6.0 % Low Eosinophils 0.0 LAB BAS% 0.0-2.0 % Basophils Normal 0.4 LAB ANC 1.8-7.0 10*3/uL Abs High Neutrophile Cnt 10.3 LAB ALC 1.0-4.3 10*3/uL Low Abs Lymph Cnt 0.7 LAB AMC 0.0-0.8 10*3/uL Abs Monocyte High Cnt 1.4 LAB AEC 0.0-0.5 10*3/uL Abs Eosin Cnt Normal 0.0 LAB ABC 0.0-0.2 10*3/uL Abs Baso Cnt Normal 0.0 Performed By: #### HEMDF, MG3, PHOS3, TROPN, BMP3 #### [facility] [address] [address] MAGNESIUM Collected: 07/19/2018 Status: F Source: [place] 2:08 AM SYSTEM REPOSITORY TYPE CODE TESTS RESULT OUT OF RANGE REFERENCE UNITS LAB MG3 1.6-2.3 mg/dL Normal Magnesium 1.9 Performed By: #### HEMDF, MG3, PHOS3, TROPN, BMP3 #### [facility] [address] [place] [address] PHOSPHORUS Collected: 07/19/2018 Status: F Source: [place] 2:08 AM SYSTEM REPOSITORY TYPE CODE TESTS RESULT OUT OF RANGE REFERENCE UNITS LAB PHOS3 2.5-4.5 mg/dL Normal Phosphorus 3.3 Performed By: #### HEMDF, MG3, PHOS3, TROPN, BMP3 #### [facility] [address] [place] [address] TROPONIN I Collected: 07/19/2018 Status: F Source: [place] 2:08 AM SYSTEM REPOSITORY TYPE CODE TESTS RESULT OUT OF REFERENCE UNITS RANGE LAB TROP4 0.000-0.034 ng/mL High Troponin I 0.050 Result Comment: 0.046 - 0.400 = Indeterminate > 0.400 = Consider Myocardial Injury Performed By: #### HEMDF, MG3, PHOS3, TROPN, BMP3 #### [facility] [address] [place] [address] BASIC METABOLIC PANEL Collected: 07/19/2018 Status: F Source: [place] 2:08 AM SYSTEM REPOSITORY TYPE CODE TESTS RESULT OUT OF RANGE REFERENCE UNITS LAB NA3 137-145 mmol/L Sodium Normal 139 LAB K3 3.5-5.1 mmol/L Normal Potassium 4.3 LAB CL3 98-107 mmol/L High Chloride 109 LAB CO23 22-30 mmol/L Carbon Normal Dioxide 22 LAB ANIN3 NA Anion Gap 8 LAB GLUC3 70-100 mg/dL High Glucose 159 LAB BUN3 7-20 mg/dL High Urea Nitrogen 35 LAB CRET3 0.52-1.25 mg/dL High Creatinine 1.60 LAB GF3BR >60 mL/min eGFR 50.8 LAB GF3WR >60 mL/min eGFR OTHER 41.9 Result Comment: Source- MDRD equation with creatinine calibration to IDMS(NKDEP) eGFR not recommended for drug dose adjustment LAB CA3 8.4-10.4 mg/dL Normal Calcium 9.2 Performed By: #### HEMDF, MG3, PHOS3, TROPN, BMP3 #### [facility] [address] [place] [address] GLUCOSE,BEDSIDE Collected: 07/18/2018 Status: F Source: [place] 10:42 PM SYSTEM REPOSITORY TYPE CODE TESTS RESULT OUT OF RANGE REFERENCE UNITS LAB BGLU 70-100 mg/dL High 170 Glucose,Beds jay Result Comment: Test performed by glucose meter. Results may be 10%-15% lower than serum/plasma values. (CLIA ID [id number]) Performed By: #### BGLU #### [facility] [address] [place] [address] HEMOGLOBIN A1C Collected: 07/18/2018 Status: F Source: [place] 9:40 PM SYSTEM REPOSITORY TYPE CODE TESTS RESULT OUT OF REFERENCE UNITS RANGE LAB A1C2 4.0-5.7 % High Hemoglobin A1C 7.0 Result Comment: --HgbA1C levels may not be accurate in patients who have renal disease, received recent blood transfusions, are anemic, or who have dyshemoglobinemia. LAB EAG2 mg/dL Estimated Avg Glucose 154 Performed By: #### HA1C2, MG3, PHOS3, ALB3 #### [facility] [address] [place] [address] MAGNESIUM Collected: 07/18/2018 Status: F Source: [place] 9:40 PM SYSTEM REPOSITORY TYPE CODE TESTS RESULT OUT OF RANGE REFERENCE UNITS LAB MG3 1.6-2.3 mg/dL Normal Magnesium 2.0 Performed By: #### HA1C2, MG3, PHOS3, ALB3 #### [facility] [address] [place] [address] PHOSPHORUS Collected: 07/18/2018 Status: F Source: [place] 9:40 PM SYSTEM REPOSITORY TYPE CODE TESTS RESULT OUT OF RANGE REFERENCE UNITS LAB PHOS3 2.5-4.5 mg/dL Normal Phosphorus 3.9 Performed By: #### HA1C2, MG3, PHOS3, ALB3 #### [facility] [address] [place] [address] ALBUMIN, SERUM Collected: 07/18/2018 Status: F Source: [place] 9:40 PM SYSTEM REPOSITORY TYPE CODE TESTS RESULT OUT OF RANGE REFERENCE UNITS LAB ALB3 3.5-5.0 g/dL Normal Albumin, 4.0 Serum Performed By: #### HA1C2, MG3, PHOS3, ALB3 #### [facility] [address] [place] [address] TROPONIN I Collected: 07/18/2018 Status: F Source: [place] 9:40 PM SYSTEM REPOSITORY TYPE CODE TESTS RESULT OUT OF REFERENCE UNITS RANGE LAB TROP4 0.000-0.034 ng/mL High Troponin I 0.041 Result Comment: 0.046 - 0.400 = Indeterminate > 0.400 = Consider Myocardial Injury Performed By: #### TROPN #### [facility] [address] [place] [address] US ABDOMEN LIMITED Observed: 07/18/2018 Status: F Source: Xobni 9:22 PM SYSTEM REPOSITORY Patient Name: SIGIFREDO MENDIETA Ultrasound Exam Date/Time 07/18/2018 20:23:54 EDT Exam US Abdomen Limited Ordering Physician NICHOLAS BLAKELY Accession Number [id number] CPT4 Codes 54550 () Reason For Exam Pain Report ULTRASOUND ABDOMEN COMPLETE EXAM DATE AND TIME: 07/18/2018 8:23 PM EDT INDICATION: 78 years Male with abdominal pain COMPARISON: CT 07/18/2018 TECHNIQUE: Limited ultrasound of abdomen FINDINGS: Grayscale and color Doppler flow signal technique utilized. Liver: Echogenic possibly fatty infiltrated.. No focal lesion identified. Gallbladder: Thick-walled edematous appearing with some sludge. Gallbladder wall 6 mm.No Contreras's sign observed. Common bile duct: 9.3 mm Pancreas: Obscured by gas Right kidney: Measurement 10.2 cm. Normal parenchymal echogenicity without solid mass or hydronephrosis. . IMPRESSION: Abnormal appearance of gallbladder suspicious for acute cholecystitis. Report Dictated on Final Dictated: 07/18/2018 9:22 pm Dictating Physician: MD MENDEZ JOHN Signed Date and Time: 07/18/2018 9:27 pm Signed by: MD MENDEZ JOHN Transcribed Date and Time: 07/18/2018 9:22 CT ABDOMEN/PELVIS W/O Observed: 07/18/2018 Status: F Source: [place] CONTRAST 5:45 PM SYSTEM REPOSITORY Patient Name: SIGIFREDO MENDIETA CT Exam Date/Time 07/18/2018 17:35:[address] Abdomen/Pelvis (No PO, No IV) Ordering Physician Breanna BLANCAS NICHOLAS Accession Number [id number] CPT4 Codes 15029 (CT Abdomen/Pelvis (No PO, No IV)) Reason For Exam ABDOMINAL PAIN Report Study: CT abdomen pelvis. INDICATION: Right flank pain COMPARISON: CT chest 08/17/2017 with limited views of the upper abdomen. FINDINGS: Imaging of the abdomen and pelvis were performed without contrast Free air: None Bowel: No obstruction or abscess.Liver: Unremarkable as seen. Gallbladder: No stones , wall thickening or pericholecystic fluid. Pancreas: Unremarkable as seen. Spleen: No splenomegaly. No focal lesion. Adrenal glands:No adrenal mass visible. Vascular: Calcifications. Kidneys , ureters and bladder: No definite hydronephrosis, collecting system or bladder calculi seen. No perinephric process. 2 cm hypodensity left kidney poorly visualized possibly cyst. Retroperitoneum: No adenopathy seen. Peritoneal cavity: Mesenteric lymph nodes or masses. Pelvic structures: Prostatomegaly, 5.7 cm impinging on the base of the bladder. Spine and musculoskeletal: Lumbar fusion with pedicle screws. Lower lumbar laminectomy. No compression deformity or fracture. Degenerative spurring.. Abdominal wall:Unremarkable as seen. Lung bases: No consolidation or major volume loss. IMPRESSION: No obstruction, abscess or free air. Etiology of patient's symptoms uncertain. Atherosclerotic calcifications including coronary. Prostatomegaly. Postoperative changes lumbar spine. Possible left renal cyst. Report Dictated on Final Dictated: 07/18/2018 5:45 pm Dictating Physician: MD MENDEZ JOHN Signed Date and Time: 07/18/2018 5:55 pm Signed by: MD MENDEZ JOHN Transcribed Date and Time: 07/18/2018 5:45 CR CHEST PORTABLE Observed: 07/18/2018 Status: F Source: Xob[place] 5:14 PM SYSTEM REPOSITORY Patient Name: SIGIFREDO MENDIETA Diagnostic Radiology Exam Date/Time 07/18/2018 17:02:45 EDT Exam CR Chest Portable Ordering Physician [id number] EthanNICHOLAS THOMPSON Accession Number [id number] CPT4 Codes 91510 () Reason For Exam chest pain Report EXAM TYPE: RADIOLOGIC EXAMINATION, CHEST, SINGLE VIEW FRONTAL (CXR SINGLE VIEW) EXAM DATE AND TIME: 07/18/2018 5:02 PM EDT INDICATION: Chest pain COMPARISON: 05/30/2017 TECHNIQUE: A single frontal view of the thorax was obtained and reviewed. Special views: None. IMPRESSION: 1. Lines/Tubes/Devices/Hardware: Leads and sternotomy wires.. (The ability of radiographs to determine exact position and function of support devices is limited. ) 2. Lungs: No consolidation or pulmonary edema. 3. Pleura: No definite effusion. No definite pneumothorax. 4. Heart and mediastinum: Normal cardiomediastinal contours. 5. Upper abdomen: No acute process seen. Report Dictated on Final Dictated: 07/18/2018 5:14 pm Dictating Physician: MD MENDEZ JOHN Signed Date and Time: 07/18/2018 5:15 pm Signed by: MD MENDEZ JOHN Transcribed Date and Time: 07/18/2018 5:14 HEMOGRAM W/ AUTODIFF Collected: 07/18/2018 Status: F Source: [place] 4:43 PM SYSTEM REPOSITORY TYPE CODE TESTS RESULT OUT OF REFERENCE UNITS RANGE LAB IWBC 3.6-10.7 10*3/uL WBC High 12.1 LAB RBC 4.40-5.90 10*6/uL Low RBC 4.21 LAB HGB 13.0-18.0 g/dL Low Hemoglobin 11.4 LAB HCT 40.0-52.0 % Low Hematocrit 34.8 LAB MCV 80.0-98.0 fL MCV Normal 82.7 LAB MCH 26.0-34.0 pg MCH Normal 27.0 LAB MCHC 32.0-36.0 % MCHC Normal 32.7 LAB RDW 11.5-14.5 % RDW High 15.0 LAB PLT 140-440 10*3/uL Platelet Normal 244 LAB MPV 7.4-10.4 fL MPV Normal 9.3 LAB GRAN% 40.0-80.0 % Granulocytes Normal 76.6 LAB LYMP% 20.0-40.0 % Low Lymphocytes 10.2 LAB MONO% 2.0-10.0 % Monocytes High 10.5 LAB EOS% 1.0-6.0 % Eosinophils Normal 1.8 LAB BAS% 0.0-2.0 % Basophils Normal 0.9 LAB ANC 1.8-7.0 10*3/uL Abs High Neutrophile Cnt 9.2 LAB ALC 1.0-4.3 10*3/uL Abs Lymph Cnt Normal 1.2 LAB AMC 0.0-0.8 10*3/uL Abs Monocyte High Cnt 1.3 LAB AEC 0.0-0.5 10*3/uL Abs Eosin Cnt Normal 0.2 LAB ABC 0.0-0.2 10*3/uL Abs Baso Cnt Normal 0.1 Performed By: #### HEMDF, LIPA4, CMP3, BNP3, TROPN, LACT3, TSH5 #### [facility] [address] [place] [phone] LIPASE Collected: 07/18/2018 Status: F Source: [place] 4:43 PM SYSTEM REPOSITORY TYPE CODE TESTS RESULT OUT OF REFERENCE UNITS RANGE LAB LIPA4 23-300 U/L High Lipase 551 Performed By: #### HEMDF, LIPA4, CMP3, BNP3, TROPN, LACT3, TSH5 #### [facility] [address] [place] [phone] COMP METABOLIC PANEL Collected: 07/18/2018 Status: F Source: [place] 4:43 PM SYSTEM REPOSITORY TYPE CODE TESTS RESULT OUT OF RANGE REFERENCE UNITS LAB NA3 137-145 mmol/L Normal Sodium 140 LAB K3 3.5-5.1 mmol/L High Potassium 5.3 Result Comment: Slightly hemolysed, interpret with caution. LAB CL3 98-107 mmol/L High Chloride 108 LAB CO23 22-30 mmol/L Normal Carbon Dioxide 24 LAB ANIN3 NA Anion Gap 8 LAB GLUC3 70-100 mg/dL High Glucose 191 LAB BUN3 7-20 mg/dL High Urea Nitrogen 37 Result Comment: Slightly hemolysed, interpret with caution. LAB CRET3 0.52-1.25 mg/dL Creatinine High 1.66 LAB GF3BR >60 mL/min eGFR 48.7 LAB GF3WR >60 mL/min eGFR OTHER 40.2 Result Comment: Source- MDRD equation with creatinine calibration to IDMS(NKDEP) eGFR not recommended for drug dose adjustment LAB CA3 8.4-10.4 mg/dL Normal Calcium 8.9 LAB ALB3 3.5-5.0 g/dL Normal Albumin, Serum 4.0 Result Comment: Slightly hemolysed, interpret with caution. LAB TP3 6.3-8.2 g/dL Normal Total Protein 6.9 Result Comment: Slightly hemolysed, interpret with caution. LAB BILT3 0.2-1.3 mg/dL Bilirubin,Total Normal 1.1 LAB ALKP3 38-126 U/L Alkaline Phosphatase Normal 64 Result Comment: Slightly hemolysed, interpret with caution. LAB ALT3 13-69 U/L Normal ALT (SGPT) 35 Result Comment: Slightly hemolysed, interpret with caution. LAB AST3 15-46 U/L High AST (SGOT) 76 Result Comment: Slightly hemolysed, interpret with caution. Performed By: #### HEMDF, LIPA4, CMP3, BNP3, TROPN, LACT3, TSH5 #### [facility] [address] [place] [phone] NT PRO BNP Collected: 07/18/2018 Status: F Source: [place] 4:43 PM SYSTEM REPOSITORY TYPE CODE TESTS RESULT OUT OF RANGE REFERENCE UNITS LAB BNP3 0-450 pg/mL High NT pro 7361 BNP Performed By: #### HEMDF, LIPA4, CMP3, BNP3, TROPN, LACT3, TSH5 #### [facility] [address] [place] [phone] TROPONIN I Collected: 07/18/2018 Status: F Source: [place] 4:43 PM SYSTEM REPOSITORY TYPE CODE TESTS RESULT OUT OF REFERENCE UNITS RANGE LAB TROP4 0.000-0.034 ng/mL High Troponin I 0.049 Result Comment: 0.046 - 0.400 = Indeterminate > 0.400 = Consider Myocardial Injury Performed By: #### HEMDF, LIPA4, CMP3, BNP3, TROPN, LACT3, TSH5 #### [facility] [address] [place] [phone] LACTIC ACID Collected: 07/18/2018 Status: F Source: [place] 4:43 PM SYSTEM REPOSITORY TYPE CODE TESTS RESULT OUT OF RANGE REFERENCE UNITS LAB LACT3 0.7-2.0 mmol/L Normal Lactic Acid 1.1 Performed By: #### HEMDF, LIPA4, CMP3, BNP3, TROPN, LACT3, TSH5 #### [facility] [address] [place] [address] THYROID STIM. Collected: 07/18/2018 Status: F Source: [facility] HORMONE 4:43 PM SYSTEM REPOSITORY TYPE CODE TESTS RESULT OUT OF RANGE REFERENCE UNITS LAB TSH5 0.465-4.680 u[IU]/mL Normal Thyroid Stim. 3.686 Hormone Performed By: #### HEMDF, LIPA4, CMP3, BNP3, TROPN, LACT3, TSH5 #### [facility] [address] [place] [address] ECHO COMPLETE W/WO Observed: 07/05/2018 Status: F Source: [facility] CONTRAST 8:25 AM SYSTEM REPOSITORY Patient Name: SIGIFREDO MENDIETA Sr Ultrasound Exam Date/Time 07/05/2018 10:36:11 EDT Exam Echo Complete w/wo Contrast Ordering Physician JOAQUÍN GAFFNEY Accession Number [id number] Reason For Exam aortic valve disease Report TRANSTHORACIC ECHOCARDIOGRAM PATIENT: Sigifredo Mendieta STUDY DATE: 07/05/2018 : 1940 AGE: 77 HT/WT: 167.6 cm (66 85.7 kg in) (188.6 lb) GENDER: M BP: 137 / 64 LOCATION: [facility] Medical STATUS: Center *ORDERING PHYSICIAN: * Joaquín Gaffney MD *READING PHYSICIAN: * Olya Patel MD, *PACKAGE DYEING MACHINE OPERATOR: * [facility] --- INDICATIONS: Aortic valve disorders. --- HISTORY: Coronary artery disease. Coronary artery bypass grafting. --- CONCLUSIONS SUMMARY: 1. Left ventricle: Systolic function is mildly decreased by visual assessment. The estimated ejection fraction is 50%. 2. Right ventricle: The cavity size is moderately dilated. Systolic function is mildly decreased. Right ventricular systolic pressure is moderately increased. RV systolic pressure (S, est): 51 mm Hg. 3. Aortic valve: There is mild stenosis. There is mild, 1+ regurgitation. Mean gradient (S): 18 mm Hg. Peak gradient (S): 32 mm Hg. Dimensionless index: 0.31. Valve area (VTI): 1.1 cm2. --- STUDY DATA: Complete transthoracic echocardiogram. Procedure: Image quality was adequate. M-mode, complete 2D, complete spectral Doppler, and color flow Doppler images were acquired and archived for permanent storage and are available for subsequent review. Study status: Routine. Patient status: Outpatient. ECG RHYTHM: Sinus bradycardia with ectopy, HR in 30s-40s. --- FINDINGS LEFT VENTRICLE: The cavity size is normal. Wall thickness is moderately increased. Systolic function is mildly decreased by visual assessment. The estimated ejection fraction is 50%. There are no regional wall motion abnormalities. Limited evaluation of LV diastolic function due to suboptimal technical data Likely pseudonormal left ventricular filling pattern, with concomitant abnormal relaxation and increased filling pressure (grade 2 diastolic dysfunction). RIGHT VENTRICLE: The cavity size is moderately dilated. Systolic function is mildly decreased. Right ventricular systolic pressure is moderately increased. VENTRICULAR SEPTUM: The septum is normal. LEFT ATRIUM: The atrium is severely dilated. RIGHT ATRIUM: The atrium is severely dilated. ATRIAL SEPTUM: The interatrial septum is normal. Doppler shows no evidence of shunt. MITRAL VALVE: Mildly calcified annulus. Doppler: There is mild- moderate, 1-2+ regurgitation. Peak gradient (D): 7 mm Hg. AORTIC VALVE: Trileaflet; mildly thickened, mildly calcified leaflets. Doppler: There is mild stenosis. There is mild, 1+ regurgitation. Dimensionless index: 0.31. Valve area (VTI): 1.1 cm2. Indexed valve area (VTI): 0.5 cm2/m2. Mean gradient (S): 18 mm Hg. Peak gradient (S): 32 mm Hg. Peak velocity (S): 2.8 m/sec. TRICUSPID VALVE: Structurally normal valve. Leaflet separation is normal. Doppler: Transvalvular velocity is within the normal range. There is no evidence for stenosis. There is mild-moderate, 1-2+ regurgitation. PULMONIC VALVE: Structurally normal valve. Cusp separation is normal. Doppler: Transvalvular velocity is within the normal range. There is trivial, less than 1+ regurgitation. AORTA: Aortic root: The aortic root is normal in size. Ascending aorta: The ascending aorta is normal in size. PULMONARY ARTERY: The main pulmonary artery is normal in size. PERICARDIUM: There is no pericardial effusion. SYSTEMIC VEINS: Inferior vena cava: The vessel is borderline dilated. The IVC collapses by less than 50% with inspiration. --- Measurements Left ventricle Value 02/10/2017 Reference LV ID, ED 5.5 cm 5.4 4.2 - 5.9 LV ID, ES 4.1 cm 4.0 ------- -- LV PW thickness, ED (H) 1.6 cm 1.5 0.6 - 1.0 LV end-diastolic volume, 1-p A4C (H) 159 ml 158 67 - 155 LV end-systolic volume, 1-p A4C 50 ml 84 22 - 58 Ventricular septum Value 02/10/2017 Reference IVS thickness, ED (H) 1.7 cm 1.5 0.6 - 1.0 LVOT Value 02/10/2017 Reference LVOT ID, A-P 2.2 cm 2.1 ------- -- LVOT mean velocity, S 0.6 m/sec ------- -- LVOT VTI, S 24.8 cm 21.0 ------- -- LVOT peak gradient, S 3 mm Hg ------- -- Stroke volume (SV), LVOT DP 90 ml 72 ------- -- Stroke index (SV/bsa), LVOT DP 45 ml/m2 34 -------- - Aortic valve Value 02/10/2017 Reference Aortic valve peak velocity, S 2.8 m/sec 2.4 ------- -- Aortic valve mean velocity, S 2 m/sec 1.8 ------- -- Aortic valve VTI, S 80.9 cm 53.1 ------- -- Aortic mean gradient, S 18 mm Hg 14 ------- -- Aortic peak gradient, S 32 mm Hg 23 ------- -- DI 0.31 0.4 ------- -- Aortic valve area, VTI 1.1 cm2 1.3 -------- - Aortic valve area/bsa, VTI 0.5 cm2/m2 0.6 --------- Aortic regurg pressure half-time 694 ms 505 ------- -- Aorta Value 02/10/2017 Reference Aortic root ID, ED (sinus) 3.7 cm 3.6 <4.2 Left atrium Value 02/10/2017 Reference LA volume/bsa, ES, 2-p 61 ml/m2 46 -------- - Mitral valve Value 02/10/2017 Reference Mitral E-wave peak velocity 1.3 m/sec 0.8 ------- -- Mitral A-wave peak velocity 0.8 m/sec 1 ------- -- Mitral deceleration time 282 ms 365 ------- -- Mitral peak gradient, D 7 mm Hg 3 ------- -- Mitral E/A ratio, peak 1.7 0.8 ------- -- Mitral regurg vena contracta 0.42 cm 0.35 ------- -- Pulmonary arteries Value 02/10/2017 Reference PA pressure, S, DP 51 mm Hg ------- -- Tricuspid valve Value 02/10/2017 Reference Tricuspid peak RV-RA gradient 43 mm Hg 20 ------- -- Right atrium Value 02/10/2017 Reference RA area, ES, A4C (H) 27 cm2 10 - 18 Systemic veins Value 02/10/2017 Reference Estimated RAP 8 mm Hg ------- -- Right ventricle Value 02/10/2017 Reference RV pressure, S, DP 51 mm Hg ------- -- Legend: (L) and (H) olya values outside specified reference range. Electronically signed by Olya Patel MD, FACC 07/05/2018 11:39 Final Dictated: 07/05/2018 11:40 am Dictating Physician: MD. ADRIANA, OLYA [place] Signed Date and Time: 07/05/2018 11:39 am Signed by: MD. PATEL FACC, MARK A BASIC METABOLIC Collected: 06/10/2018 Status: F Source: [place]RIKA PROFILE (BMP) 8:16 AM [facility] REPOSITORY TYPE CODE TESTS RESULT OUT OF RANGE REFERENCE UNITS LAB L501.0100 74-106 mg/dL High GLU 190 Result Comment: Fasting Glucose result greater than or equal to 126 mg/dL suggests DIABETES MELLITUS per A.D.A. criteria. Please note revised GLUCOSE reference range effective 2017. LAB L501.1000 7-18 mg/dL High BUN 30 LAB L501.1100 0.70-1.30 mg/dL High CREAT,SERUM 1.78 Result Comment: The validity of the calculated GFR AND GFRAA in patients over 70 years has not been determined. Clinical correlation is essential. LAB L501.1110 >60 mL/min Low EST GFR 39 Result Comment: Non- GFR Calc LAB L501.1115 >60 mL/min Low EST GFR - AA 48 Result Comment: GFR Calc LAB L501.1300 10-20 RATIO Normal BUN/CRE 16.9 LAB L501.2200 8.5-10.1 mg/dL CA Normal 8.7 LAB L501.5300 136-145 mmol/L NA Normal 142 LAB L501.5600 3.5-5.1 mmol/L K Normal 4.5 LAB L501.5900 98-107 mmol/L CL Normal 107 LAB L501.6100 21.0-32.0 mmol/L Normal CO2 26.0 LAB L501.6200 5-15 Normal GAP 9 Performed By: #### L500.2500 #### [facility] [address] [place], [address] UPPER EXT JOINT Observed: 04/05/2018 Status: F Source: [place] ONLY(ROUTINE) 6:39 AM [facility] REPOSITORY [facility] Imaging Services [address] [place] [address] Upper Ext Joint Only(Routine) MR#: [id number] Acct: [id number] Name: SIGIFREDO MENDIETA Rep #: [id number] : 1940 M 77 From: Farhat Leslie MD PCP: Sohail Avendaño MD Status: REG CLI Study: Upper Ext Joint Only(Routine) Date of Exam: 04/05/18 Exam# [id number] Ordering Dr: Samuel Avendaño MD STUDY: MRI LEFT SHOULDER REASON FOR EXAM: Left shoulder pain. TECHNIQUE: Standardized fat and water weighted pulse sequences were obtained in all 3 orthogonal planes. COMPARISON: Radiographs 03/24/2018. FINDINGS: There is a full-thickness tear of the supraspinatus and infraspinatus tendons retracted approximately 3.8 cm to the level of the glenohumeral joint (T2 coronal images 7-18). There is an undersurface partial-thickness tear of the distal subscapularis tendon (T2 axial images 13- 15). Normal teres minor tendon. There is atrophy with partial fat replacement of the supraspinatus muscle (T2 axial image 8). There is atrophy with partial fat replacement of the infraspinatus muscle (T2 axial image 15). Normal subscapularis muscle. Normal teres minor muscle. There is glenohumeral arthrosis with small marginal osteophytes of the humeral head and chondral thinning (T2 coronal images 12-14). There is small glenohumeral joint effusion with focal synovitis in the axillary bursa (T2 coronal image 15). Normal humeral head and visualized proximal humerus. There is a partial tear with attenuation of the intracapsular long biceps tendon (T2 axial images 7-10). There is degeneration of the labrum, especially the superior and anterior labrum. There is acromioclavicular arthrosis with hypertrophic changes (T2 sagittal image 5). There is a Type II morphology (curved), with a neutral orientation. There is subacromial-subdeltoid bursal fluid. Normal visualized coracohumeral and coracoacromial ligaments. There is a strain of the lateral deltoid muscle (T2 coronal images 7, 8, 10, 11). Normal trapezius muscle. MRI/Upper Ext Joint Only(Routine) IMPRESSION: Full-thickness tear of the supraspinatus and infraspinatus tendons. Undersurface partial-thickness tear of the subscapularis tendon. Atrophy of the supraspinatus and infraspinatus muscles. 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 Partial tear of the long biceps tendon. Acromioclavicular arthrosis. Strain of the lateral deltoid muscle. Glenohumeral joint fluid communicating with the subacromial-subdeltoid bursa. Electronically Signed: Farhat Leslie MD at 9:04 EDT Tel , Service support , CC: Sohail Avendaño MD Director Educational Radio: Signed SHOULDER MIN 2 VIEWS Observed: 03/24/2018 Status: F Source: [place] 10:43 AM [facility] REPOSITORY [facility] Imaging Services [address] [place] [id number] Shoulder min 2 Views MR#: [id number] Acct: [id number] Name: SIGIFREDO MENDIETA Rep #: [id number] : 1940 M 77 From: Farhat Leslie MD PCP: Sohail Avendaño MD Status: REG CLI Study: Shoulder min 2 Views Date of Exam: 03/24/18 Exam# [id number] Ordering Dr: Samuel Avendaño MD STUDY: X-RAY - LEFT SHOULDER REASON FOR EXAM: Left shoulder pain. TECHNIQUE: 4 view(s) of the shoulder. COMPARISON: None. FINDINGS: Normal glenohumeral articulation. There is acromioclavicular arthrosis. Normal acromion. Normal humeral head and visualized proximal humerus. The soft tissue structures are unremarkable. Normal visualized pulmonary apex. RAD/Shoulder min 2 Views IMPRESSION: Acromioclavicular arthrosis. Electronically Signed: Farhat Leslie MD at 16:31 EDT Tel , Service support , CC: Sohail Avendaño MD Director Educational Radio: Signed TESTICULAR WITH Observed: 02/21/2018 Status: F Source: [place] ARTERIAL FLOW 11:46 AM [facility] REPOSITORY [facility] Imaging Services [address] [place] [address] Testicular with Arterial Flow MR#: [id number] Acct: [id number] Name: SIGIFREDO MENDIETA Rep #: [id number] : 1940 77 From: Asad Jimenez MD PCP: Sohail Avendaño MD Status: REG CLI Study: Testicular with Arterial Flow Date of Exam: 02/21/18 Exam# [id number] Ordering Dr: Samuel Avendaño MD STUDY: SCROTUM ULTRASOUND REASON FOR EXAM: Male, 77 years old. Left testicular swelling TECHNIQUE: Ultrasound evaluation of the scrotum was performed with color Doppler and static [place]-scale imaging. COMPARISON: None. FINDINGS: RIGHT TESTICLE INTRATESTICULAR: There is a normal size of the right testicle. The right testicle measures 3.1 x 2.2 x 1.8 cm. There is a heterogeneous echotexture. There is normal arterial and normal venous vascularity. There is no demonstrated right testicular mass or cyst. There is right testicular microlithiasis. EXTRATESTICULAR: The epididymis is normal in size. The epididymis head measures 0.8 cm. There is normal vascularity of the epididymis. There is no demonstrated epididymal cystic structure. There is a moderate size hydrocele. There is no demonstrated varicocele. There is no demonstrated extratesticular mass or cyst. LEFT TESTICLE INTRATESTICULAR: There is a normal size of the left testicle. The left testicle measures 3.3 x 2.1 x 2.2 cm. There is a homogenous echotexture. There is normal arterial and normal venous vascularity. There is no demonstrated left testicular mass or cyst. Left testicular microlithiasis is noted. EXTRATESTICULAR: The epididymis is normal in size. The epididymis head measures 1.0 x 1.5 x 0.9 cm. There is normal vascularity of the epididymis. There is an epididymal cyst measuring 0.5 x 0.4 x 0.3 cm. There is a large hydrocele. There is no demonstrated varicocele. There is no demonstrated extratesticular mass or cyst. US/Testicular with Arterial Flow IMPRESSION: Bilateral testicular microlithiasis. Bilateral hydroceles, left side larger than right. Small left epididymal head cyst. Electronically Signed: Asad Jimenez MD at 21:11 EDT , Service support , CC: Sohail Avendaño MD Director Educational Radio: Signed CBC-COMPLETE BLOOD CNT Collected: 01/21/2018 Status: F Source: [place] NO DIFF 9:03 AM [facility] REPOSITORY Order Comment: Order Date: 11/16/17 Order Info: [id number] - CBC DR. MOJICA ALSO ORDERED CMP CBCD TYPE CODE TESTS RESULT OUT OF RANGE REFERENCE UNITS LAB L100.1000 4.4-11.0 K/mm3 Normal WBC 8.3 LAB L100.1200 4.6-6.2 M/mm3 Low RBC 3.96 LAB L100.1300 13.0-16.5 g/dl Low HGB 11.4 LAB L100.1400 40-54 % Low HCT 34.7 LAB L100.1500 80-94 fL Normal MCV 87.6 LAB L100.1600 27.0-32.0 pg Normal MCH 28.8 LAB L100.1700 32-36 g/gl Normal MCHC 32.9 LAB L100.1810 11.6-14.6 % Normal RDW CV 13.9 LAB L100.1820 35.1-43.9 fl Normal RDW SD 43.4 LAB L100.1900 150-450 K/mm3 Normal PLT 246 LAB L100.2000 6.2-12.0 fl Normal MPV 11.5 Performed By: #### L100.0500, L500.4050, L500.4100, L501.2300, L501.9520, L509.1000, L506.1000 #### [facility] Laboratory [address] [place], [address] COMPREHENSIVE METABOLIC Collected: 01/21/2018 Status: F Source: [place] VASQUEZ 9:03 AM [facility] REPOSITORY Order Comment: Order Date: 11/16/17 Order Info: [id number] - CMP Order Info: [id number] - LIPID Order Info: [id number] - PHOS Order Info: [id number] - TSH DR. MOJICA ALSO ORDERED CMP CBCD TYPE CODE TESTS RESULT OUT OF RANGE REFERENCE UNITS LAB L501.0100 74-106 mg/dL High GLU 136 Result Comment: Fasting Glucose result greater than or equal to 126 mg/dL suggests DIABETES MELLITUS per A.D.A. criteria. Please note revised GLUCOSE reference range effective 2017. LAB L501.1000 7-18 mg/dL High BUN 24 LAB L501.1100 0.70-1.30 mg/dL High CREAT,SERUM 1.72 Result Comment: The validity of the calculated GFR AND GFRAA in patients over 70 years has not been determined. Clinical correlation is essential. LAB L501.1110 >60 mL/min Low EST GFR 41 Result Comment: Non- GFR Calc LAB L501.1115 >60 mL/min Low EST GFR - AA 50 Result Comment: GFR Calc LAB L501.1300 10-20 RATIO Normal BUN/CRE 14.0 LAB L501.1500 6.4-8.2 g/dL T Normal PROT 6.8 LAB L501.1800 3.2-5.0 g/dL Low ALB 3.0 LAB L501.1950 2.2-4.2 g/dL Normal GLOB 3.8 LAB L501.2000 0.9-2.4 RATIO Low A/G 0.8 LAB L501.2200 8.5-10.1 mg/dL Low CA 8.1 LAB L501.4100 15-37 U/L Normal AST 17 LAB L501.4305 45-117 U/L Normal ALK P 82 LAB L501.4405 16-61 U/L Normal ALT 18 Result Comment: Please note revised ALT reference range effective 2017. LAB L501.4600 0.20-1.00 mg/dL Normal T BILI 0.50 LAB L501.5300 136-145 mmol/L Normal NA 143 LAB L501.5600 3.5-5.1 mmol/L Normal K 3.7 LAB L501.5900 98-107 mmol/L High CL 109 LAB L501.6100 21.0-32.0 mmol/L Normal CO2 27.0 LAB L501.6200 5-15 Normal GAP 7 Performed By: #### L100.0500, L500.4050, L500.4100, L501.2300, L501.9520, L509.1000, L506.1000 #### [facility] [address] [place], [place], [address] LIPID PROFILE Collected: 01/21/2018 Status: F Source: [place] 9:03 AM [facility] REPOSITORY Order Comment: Order Date: 11/16/17 Order Info: [id number] - CMP Order Info: [id number] - LIPID Order Info: [id number] - PHOS Order Info: [id number] - TSH DR. MOJICA ALSO ORDERED CMP CBCD TYPE CODE TESTS RESULT OUT OF RANGE REFERENCE UNITS LAB L501.4900 200 mg/dL Normal CHOL 125 Result Comment: <200 mg/dL Desirable 200-240 mg/dL Borderline >240 mg/dL High Risk LAB L501.5000 mg/dL Normal TRIG 57 Result Comment: The drugs N-Acetylcysteine and Metamizole may falsely depress this assay. Serum Triglycerides Reference Interval Normal <150 mg/dL Borderline high 150 - 199 mg/dL High 200 - 499 mg/dL Very High > or = 500 mg/dL LAB L501.6400 mg/dL Normal HDL 49 Result Comment: The drugs N-Acetylcysteine and Metamizole may falsely depress this assay. Reference Range HDL <40 mg/dL Low HDL Cholesterol HDL >or= 60 mg/dL High HDL Cholesterol LAB L501.6500 0-130 mg/dL Normal LDL 65 LAB L501.6600 5-40 mg/dL Normal VLDL 11 Performed By: #### L100.0500, L500.4050, L500.4100, L501.2300, L501.9520, L509.1000, L506.1000 #### [facility] [address] [place], [place], [address] PHOSPHORUS Collected: 01/21/2018 Status: F Source: [place] 9:03 AM [facility] REPOSITORY Order Comment: Order Date: 11/16/17 Order Info: [id number] - CMP Order Info: [id number] - LIPID Order Info: [id number] - PHOS Order Info: [id number] - TSH DR. MOJICA ALSO ORDERED CMP CBCD TYPE CODE TESTS RESULT OUT OF RANGE REFERENCE UNITS LAB L501.2300 2.5-4.9 mg/dL Normal PHOS 3.8 Performed By: #### L100.0500, L500.4050, L500.4100, L501.2300, L501.9520, L509.1000, L506.1000 #### [facility] [address] [place], [place], [address] THYROID STIM HORMONE Collected: 01/21/2018 Status: F Source: [place] (TSH) 9:03 AM [facility] REPOS[facility]ORY Order Comment: Order Date: 11/16/17 Order Info: [id number] - CMP Order Info: [id number] - LIPID Order Info: [id number] - PHOS Order Info: [id number] - TSH DR. MOJICA ALSO ORDERED CMP CBCD TYPE CODE TESTS RESULT OUT OF RANGE REFERENCE UNITS LAB L501.9520 0.358-3.74 uIU/mL Normal TSH 2.47 Performed By: #### L100.0500, L500.4050, L500.4100, L501.2300, L501.9520, L509.1000, L506.1000 #### [facility] [address] [place], [place], [address] PTHIN Collected: 01/21/2018 Status: F Source: [place] 9:03 AM [facility] REPOSITORY Order Comment: Order Date: 11/16/17 Order Info: [id number] - PTHIN TYPE CODE TESTS RESULT OUT OF RANGE REFERENCE UNITS LAB L509.1000 18.4-80.1 pg/mL Normal PTHIN 73.1 Result Comment: Please Note: PTH INTACT METHOD AND REFERENCE RANGE CHANGE Effective 11/03/2017. Performed By: #### L100.0500, L500.4050, L500.4100, L501.2300, L501.9520, L509.1000, L506.1000 #### [facility] [address] [place], [address] VITAMIN D,25 HYDROXY Collected: 01/21/2018 Status: F Source: [place] 9:03 AM [facility] REPOS[facility]ORY Order Comment: Order Date: 11/16/17 Order Info: [id number] - VITD25 TYPE CODE TESTS RESULT OUT OF RANGE REFERENCE UNITS LAB L506.1000 29.95-100.01 ng/mL Normal Vitamin D 31.0 25-OH Result Comment: Vitamin D 25(OH) Status Range Deficiency <20 ng/mL (50nmol/L) Insuffciency 20 - 30 ng/mL (50 - 75 nmol/L) Sufficiency 30 - 100 ng/mL (75 - 250 nmol/L) Toxicity >100 ng/mL (>250 nmol/L) Performed By: #### L100.0500, L500.4050, L500.4100, L501.2300, L501.9520, L509.1000, L506.1000 #### [facility] [address] [place], [address] ALLERGIES ALLERGIES DATE TYPE / CODE NAME / CODE REACTION SEVERITY SOURCE 10/31/2018 Drug Penicillins/ Rash Unknown [facility] Allergy/4160 [id number]([facility] [address](SNOMED XNORM) Repository CT) ENCOUNTERS ENCOUNTERS ADMIT/DISCHARGE ACCOUNT NUMBER ADMITTING ENCOUNTER LOCATION SOURCE CLASS 10/31/2018/10/31/20 [id number] Emergency [address] ding:ED Repository 10/03/2018 [id number] Ambulatory [facility] ding:MFPLAB Repository 08/11/2018 [id number] Inpatient [facility] Encounter 5NRoom: System [id number]: Repository [id number] 07/18/2018 [id number] Inpatient [facility] Encounter 4WRoom: System [id number]: Repository [id number] 07/05/2018 [id number] Ambulatory [facility] System Repository 06/10/2018 [id number] Ambulatory [facility] ding:MTLAB Repository 04/05/2018 [id number] Ambulatory [facility] ding:MRI Repository 03/24/2018 [id number] Ambulatory [facility] ding:MTRAD Repository 02/21/2018 [id number] [facility] ding:US Repository 01/21/2018 [id number] [facility] ding:LAB Repository PAYERS PAYERS ENCOUNTER GUARANTOR PAYER SUBSCRIBER SOURCE 10/31/2018 SIGIFREDO J Primary SIGIFREDO J [place] [id number] Insurance:MEDICARE PERTEEDOB: [facility] PART A BPolicy Number: [id number] [id number] Repository [address]Yts: (330) Date:2018-10-31 [phone] () 10/31/2018 Secondary SIGIFREDO J [place] Insurance:AARPPolicy PERTEEDOB: Community Number: [id number] Hospital [id number] Repository Date:4103-05-[address], [place] [address]NN: 10/31/2018 Tertiary NOT GIVENUNK [place] Insurance:SELF PAY [facility] Number: Effective Repository Date:2018-10-31 10/03/2018 Sigifredo J Primary SIGIFREDO J [place] [id number] Insurance:MEDICARE PERTEEDOB: [facility] PART A BPolicy Number: [id number] [id number] Repository [address]Wgk: (330) Date:2018-10-03 [phone] () 10/03/2018 Secondary Sigifredo J [place] Insurance:AARPPolicy PerteeDOB: Community Number: [id number] Hospital [id number] Repository Date:6285-25-93TS [facility] [address], [place] [address]LX: 10/03/2018 Tertiary NOT GIVENUNK [place] Insurance:SELF PAY [facility] Number: Effective Repository Date:2018-10-03 08/11/2018 Sigifredo J Primary Sigifredo J [facility] PerteeDOB: Insurance:MedicarePoli PerteeDOB: System [id number] cy Number: Effective [id number] Repository Katharine Date: [place], [place] [address]Gwl: () 08/11/2018 Secondary Sigifredo J [facility] Insurance:MedicarePoli PerteeDOB: System cy Number: Effective [id number] Repository Date: 08/11/2018 Tertiary Insurance:[facility] Sigifredo J [facility] [employer] AARP SupplementPolicy PerteeDOB: System Number: Effective [id number] Repository Date: 07/18/2018 Sigifredo J Primary [facility] Pertee[facility]: Insurance:MedicarePoli PerteeDOB: System [id number] cy Number: Effective [id number] Repository Katharine Date: [place], [place] [address]Ewb: () 07/18/2018 Secondary Sigifredo J [facility] Insurance:MedicarePoli PerteeDOB: System cy Number: Effective [id number] Repository Date: 07/18/2018 Tertiary Insurance:[facility] Sigifredo J C[employer]R [employer] AARP SupplementPolicy PerteeDOB: System Number: Effective [id number] Repository Date: 07/05/2018 Sigifredo J Primary [facility]o J [facility] PerteeDOB: Insurance:MedicarePoli PerteeDOB: System [id number] cy Number: Effective [id number] Repository Katharine Date: [place], [place] [address]Bau: () 07/05/2018 Secondary Sigifredo J [facility] Insurance:MedicarePoli PerteeDOB: System cy Number: Effective [id number] Repository Date: 07/05/2018 Tertiary Insurance:[facility]o J [facility] AARP SupplementPolicy PerteeDOB: System Number: Effective [id number] Repository Date: 06/10/2018 Sigifredo J Primary SIGIFREDO J [place] [id number] Insurance:MEDICARE PERTEEDOB: [facility] A BPolicy Number: [id number] [place], [place] [id number] Repository [address]Aql: (330) Date:2018-06-10 [phone] () 06/10/2018 Secondary Sigifredo J [place] Insurance:AARPPolicy PerteeDOB: Community Number: [id number] Hospital [id number] Repository Date:4508-30-15[address]F [address], [place] [address]QZ: 06/10/2018 Tertiary NOT GIVENUNK [place] Insurance:SELF PAY [facility] Number: Effective Repository Date:2018-06-10 04/05/2018 Sigifredo J Primary SIGIFREDO J [place] [id number] Insurance:MEDICARE PERTEEDOB: [facility] PART A BPolicy Number: [id number], [place] [id number] Repository [address]Roh: (330) Date:2018-03-30 [phone] () 04/05/2018 Secondary Sigifredo J [place] Insurance:AARPPolicy PerteeDOB: Community Number: [id number] Hospital [id number] Repository Date:0956-94-91BE [facility] [address]39[address], [place] [address]AI: 04/05/2018 Tertiary NOT GIVENUNK [place] Insurance:SELF PAY [facility] Hospital Number: Effective Repository Date:2018-03-30 03/24/2018 Sigifredo J Primary SIGIFREDO J [place] [id number] Insurance:MEDICARE PERTEEDOB: [facility] PART A BPolicy Number: [id number], [place] [id number] Repository [address]Kyl: (330) Date:2018-03-24 [phone] () 03/24/2018 Secondary Sigifredo J [place] Insurance:AARPPolicy PerteeDOB: Community Number: [id number] Hospital [id number] Repository Date:9384-07-30XY [facility] [address]IF, [place] [address]CT: 03/24/2018 Tertiary NOT GIVENUNK [place] Insurance:SELF PAY [facility] Number: Effective Repository Date:2018-03-24 02/21/2018 Sigifredo J Primary SIGIFREDO J [place] [id number] Insurance:MEDICARE PERTEEDOB: [facility] PART A BPolicy Number: [id number], [place] [id number] Repository [address]Sqg: (330) Date:2018-02-21 [phone] () 02/21/2018 Secondary Sigifredo J [place] Insurance:AARPPolicy PerteeDOB: Community Number: [id number] Hospital [id number] Repository Date:9276-57-59RI [facility] [address], [place] [address]OY: 02/21/2018 Tertiary NOT GIVENUNK [place] Insurance:SELF PAY [facility] Number: Effective Repository Date:2018-02-21 01/21/2018 Sigifredo J Primary SIGIFREDO J [place] [id number] Insurance:MEDICARE PERTEEDOB: [facility] PART A BPolicy Number: [id number], [place] [id number] Repository [address]Epm: (330) Date:2018-01-21 [phone] () 01/21/2018 Secondary Sigifredo J [place] Insurance:AARPPolicy PerteeDOB: Community Number: [id number] Hospital [id number] Repository Date:8448-72-86SE [facility] [address], [place] [address]YY: 01/21/2018 Tertiary NOT GIVENUNK [place] Insurance:SELF PAY [facility] Number: Effective Repository Date:2018-01-21
== END 2018-10-31 07:09 | disposition home or self-care (01) ==
PROVIDERS: Emergency Provider Emergency Medicine; Family Provider Family Medicine; PCP Family Medicine
DX: R33.9 Retention of urine, unspecified (principal); I25.10 Atherosclerotic heart disease of native coronary artery without angina pectoris; E11.9 Type 2 diabetes mellitus without complications; I10 Essential (primary) hypertension; K21.9 Gastro-esophageal reflux disease without esophagitis; Z79.02 Long term (current) use of antithrombotics/antiplatelets; Z79.82 Long term (current) use of aspirin; Z79.4 Long term (current) use of insulin; Z79.899 Other long term (current) drug therapy; Z95.0 Presence of cardiac pacemaker; Z95.2 Presence of prosthetic heart valve; Z95.5 Presence of coronary angioplasty implant and graft
CPT/HCPCS: 99282

== ENCOUNTER → 2019-04-13 10:31 | Outpatient (CLI) | payer MEDICARE, OTHER, SELFPAY ==
[2019-04-13 13:07] LABS: Vitamin D,25 Hydroxy 56.5 ng/mL (29.95-100.01)
[2019-04-13 13:42] LABS: ALB/GLOB Ratio 1.2 RATIO (0.9-2.4); AST(SGOT) 17 U/L (15-37); Alanine Aminotransfer ALT/SGPT 16 U/L (16-61); Albumin, Serum 3.5 g/dL (3.2-5.0); Alkaline Phosphatase 68 U/L (45-117); Anion Gap 6 (5-15); BUN 29 mg/dL (7-18); BUN/Creat Ratio 17.9 RATIO (10-20); Calcium,Total 8.5 mg/dL (8.5-10.1); Chloride 107 mmol/L (98-107); Cholesterol 138 mg/dL (200); Creatinine, Serum 1.62 mg/dL (0.70-1.30); EST Glomerular Filtration Rate 44 mL/min (>60); Est Glom Filt Rate - Afr Amer 53 mL/min (>60); Globulin 2.9 g/dL (2.2-4.2); Glucose 123 mg/dL (74-106); High Density Lipoprotein 47 mg/dL; Potassium 4.6 mmol/L (3.5-5.1); Protein, Total 6.4 g/dL (6.4-8.2); Sodium Level 137 mmol/L (136-145); Triglycerides 103 mg/dL; Very Low Density Lipoprotein 21 mg/dL (5-40)
== END ==
PROVIDERS: Family Provider Family Medicine; PCP Family Medicine; Referring Provider Family Medicine; Visit Provider Family Medicine
DX: E11.9 Type 2 diabetes mellitus without complications (principal); N28.9 Disorder of kidney and ureter, unspecified
CPT/HCPCS: 36415; 80053; 80061; 82306; 84443

== ENCOUNTER → 2019-10-19 11:11 | Outpatient (CLI) | payer MEDICARE, OTHER, SELFPAY ==
[2019-10-19 12:19] LABS: Hematocrit 34.2 % (40-54); Hemoglobin 10.8 g/dL (13.0-16.5); Mean Corp Hgb Conc 31.6 g/dL (32-36); Mean Corpuscular Hgb 28.9 pg (27.0-32.0); Mean Corpuscular Volume 91.4 fL (80-94); Mean Platelet Vol. 11.3 fl (6.2-12.0); Platelet Count 232 K/mm3 (150-450); RBC Distribution Width CV 13.5 % (11.6-14.6); RBC Distribution Width SD 45.1 fl (35.1-43.9); Red Blood Count 3.74 M/mm3 (4.6-6.2); White Blood Count 7.5 K/mm3 (4.4-11.0)
[2019-10-19 12:27] LABS: Erythrocyte Sedimentation Rate 24 mm/hr (0-20)
[2019-10-19 12:40] LABS: ALB/GLOB Ratio 0.9 RATIO (0.9-2.4); AST(SGOT) 16 U/L (15-37); Alanine Aminotransfer ALT/SGPT 15 U/L (16-61); Albumin, Serum 3.3 g/dL (3.2-5.0); Alkaline Phosphatase 60 U/L (45-117); Anion Gap 6 (5-15); BUN 24 mg/dL (7-18); BUN/Creat Ratio 13.9 RATIO (10-20); Calcium,Total 8.5 mg/dL (8.5-10.1); Chloride 109 mmol/L (98-107); Creatinine, Serum 1.73 mg/dL (0.70-1.30); EST Glomerular Filtration Rate 41 mL/min (>60); Est Glom Filt Rate - Afr Amer 49 mL/min (>60); Globulin 3.5 g/dL (2.2-4.2); Glucose 125 mg/dL (74-106); Phosphorus 3.5 mg/dL (2.5-4.9); Potassium 4.4 mmol/L (3.5-5.1); Protein, Total 6.8 g/dL (6.4-8.2); Sodium Level 141 mmol/L (136-145)
[2019-10-19 12:44] LABS: PTHIN 92.6 pg/mL (18.4-80.1); Vitamin D,25 Hydroxy 50.5 ng/mL (29.95-100.01)
== END ==
PROVIDERS: Family Provider Family Medicine; PCP Family Medicine; Referring Provider Family Medicine; Visit Provider Family Medicine
DX: E11.9 Type 2 diabetes mellitus without complications (principal); M06.9 Rheumatoid arthritis, unspecified; N28.9 Disorder of kidney and ureter, unspecified
CPT/HCPCS: 36415; 80053; 82306; 83970; 84100; 85027; 85652

== ENCOUNTER → 2020-01-29 08:25 | Outpatient (CLI) | payer MEDICARE, OTHER, SELFPAY ==
[2020-01-29 11:08] LABS: ALB/GLOB Ratio 0.9 RATIO (0.9-2.4); AST(SGOT) 16 U/L (15-37); Alanine Aminotransfer ALT/SGPT 15 U/L (16-61); Albumin, Serum 3.2 g/dL (3.2-5.0); Alkaline Phosphatase 63 U/L (45-117); Anion Gap 7 (5-15); BUN 22 mg/dL (7-18); BUN/Creat Ratio 12.5 RATIO (10-20); Calcium,Total 8.6 mg/dL (8.5-10.1); Chloride 106 mmol/L (98-107); Creatinine, Serum 1.76 mg/dL (0.70-1.30); EST Glomerular Filtration Rate 40 mL/min (>60); Est Glom Filt Rate - Afr Amer 48 mL/min (>60); Globulin 3.4 g/dL (2.2-4.2); Glucose 163 mg/dL (74-106); Potassium 4.2 mmol/L (3.5-5.1); Protein, Total 6.6 g/dL (6.4-8.2); Sodium Level 140 mmol/L (136-145)
== END ==
PROVIDERS: PCP Family Medicine; Referring Provider Family Medicine; Visit Provider Family Medicine
DX: I10 Essential (primary) hypertension (principal)
CPT/HCPCS: 36415; 80053

== ENCOUNTER → 2020-08-20 11:01 | Outpatient (CLI) | payer MEDICARE, OTHER, SELFPAY ==
[2020-08-20 12:28] LABS: Hematocrit 33.1 % (40-54); Hemoglobin 10.6 g/dL (13.0-16.5); Mean Corpuscular Hgb 29.3 pg (27.0-32.0); Mean Corpuscular Volume 91.4 fL (80-94); Mean Platelet Vol. 11.4 fl (6.2-12.0); Platelet Count 259 K/mm3 (150-450); RBC Distribution Width CV 12.5 % (11.6-14.6); RBC Distribution Width SD 41.9 fl (35.1-43.9); Red Blood Count 3.62 M/mm3 (4.6-6.2); White Blood Count 8.4 K/mm3 (4.4-11.0)
[2020-08-20 13:04] LABS: Anion Gap 3 (5-15); BUN 23 mg/dL (7-18); BUN/Creat Ratio 13.9 RATIO (10-20); Calcium,Total 8.8 mg/dL (8.5-10.1); Chloride 111 mmol/L (98-107); Creatinine, Serum 1.66 mg/dL (0.70-1.30); EST Glomerular Filtration Rate 43 mL/min (>60); Est Glom Filt Rate - Afr Amer 51 mL/min (>60); Glucose 108 mg/dL (74-106); Potassium 4.3 mmol/L (3.5-5.1); Sodium Level 141 mmol/L (136-145); Thyroid Stim Hormone (TSH) 2.22 uIU/mL (0.358-3.74)
[2020-08-21 08:25] LABS: Vitamin D,25 Hydroxy 45.9 ng/mL
== END ==
PROVIDERS: PCP Family Medicine; Referring Provider Family Medicine; Visit Provider Family Medicine
DX: Z00.00 Encounter for general adult medical examination without abnormal findings (principal); N28.9 Disorder of kidney and ureter, unspecified
CPT/HCPCS: 36415; 80048; 82306; 84443; 85027

== ENCOUNTER 2020-10-13 16:19 | Inpatient (IN) | payer MEDICARE, OTHER, SELFPAY ==
[2020-10-13] VITALS (7 sets, daily range): BP systolic 126–148; BP diastolic 52–65; PULSE 64–71; RESP 18–22; TEMP 36.6–36.8; O2SAT 96–97; BMI 32.3; BMI 31.2; BMI 31.1
--- NOTE | 2020-10-13 16:31 | EKG12_ITS ---
Test Reason : WEAKNESS Blood Pressure : / mmHG Vent. Rate : 066 BPM Atrial Rate : 060 BPM P-R Int : 000 ms QRS Dur : 174 ms QT Int : 536 ms P-R-T Axes : 000 262 093 degrees QTc Int : 561 ms Ventricular-paced rhythm Abnormal ECG Confirmed by JESSICA WEBB, MANA ([id number]), magazine editor CHIQUITA HEWITT ([id number]) on 10/15/2020 9:18:43 AM Referred By: LINDSAY Confirmed By:MANA LOPEZ MD
--- NOTE | 2020-10-13 16:31 | RAD_ITS ---
STUDY: X-RAY CHEST REASON FOR EXAM: Male, 80 years old. WEAKNESS AND NEAR SYNCOPE. TECHNIQUE: Single AP portable view of the chest. COMPARISON: June 13, 2017 FINDINGS: 1. Moderate to severe right upper lobe pneumonic consolidation superimposed on chronic interstitial lung disease. 2. Chronic appearing mild to moderate consolidation or fibrosis of the right mid to lower lung field. The left lung is clear of acute infiltrates by x-ray criteria. 3. Left chest cardiac device and right heart leads are present. This was not seen on the prior chest x-ray. Stable CABG and median sternotomy changes. Normal heart size. 4. Stable mediastinal contours and osseous structures. There is no demonstrated abnormality of the visualized soft tissue structures of the upper abdomen. RAD/Chest 1 View (Portable) IMPRESSION: Moderate to severe right upper lobe pneumonia superimposed on chronic interstitial lung disease Electronically Signed: Errol Shrestha MD at 18:25 EST , Service support ,
[2020-10-13 16:43] LABS: Absolute Lymphocyte Count 1.28 X10^3/uL (0.83-4.51); Absolute Neutrophil Count 8.8 X10^3/uL (2.0-7.7); Basophil# 0.05 X10^3/uL; Basophil% 0.4 % (0-1); Eosinophil# 0.08 X10^3/uL; Eosinophils% 0.7 % (0-5); Hematocrit 28.7 % (40-54); Lymphocyte # 1.28 X10^3/ul (4.0); Lymphocyte % 10.9 % (19-41); Mean Corp Hgb Conc 31.4 g/dL (32-36); Mean Corpuscular Hgb 28.1 pg (27.0-32.0); Mean Corpuscular Volume 89.7 fL (80-94); Mean Platelet Vol. 10.3 fl (6.2-12.0); Monocyte# 1.38 X10^3/uL; Monocyte% 11.8 % (0-10); NRBC Flagged by Analyzer 0 % (0-5); Neutrophil % 74.9 % (47-70); Platelet Count 434 K/mm3 (150-450); RBC Distribution Width CV 13.1 % (11.6-14.6); RBC Distribution Width SD 43.1 fl (35.1-43.9); White Blood Count 11.7 K/mm3 (4.4-11.0)
--- NOTE | 2020-10-13 16:47 | ED.VISSUMM ---
- ER Visit Summary Date of Service: 10/13/20 Chief Complaint: Weakness History of Present Illness: The patient is a [address] 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 Reports that he has had weakness over the past 2 weeks is gradually gotten worse. He states he says chills, rhinorrhea, slight cough is productive of clear sputum without blood. He denies any chest pain or shortness of breath. He reports he has had no sick contacts. He does not go out and lives by himself. Patient denies fever. He denies any abdominal pain, nausea, vomiting, or diarrhea. No dysuria or frequency. No rash or headache. He complains that his weakness is generalized. States that he is unable to care for himself at home any longer. Physical Examination: Vitals: Stable. Afebrile. General: Well-nourished and well-developed. Head: Normocephalic atraumatic. Neck: Supple, no lymphadenopathy. No JVD. Nontender. Cardiovascular: Regular rate and rhythm. 2 out of 6 systolic murmur. Respiratory: No respiratory distress. Fine crackles on the right. Abdominal: Soft, nontender, nondistended, normal bowel sounds. No guarding, rebound, or peritoneal signs. Back: Nontender. Extremities: Nontender, trace pedal edema bilaterally. Skin: Normal color, no rash. Neurologic: Alert and oriented ?3. Cranial nerves II through XII are intact. Normal strength and sensation. Psych: Normal affect. Test Results: EKG is ventricular paced at 66. Troponin 0 0.036. UA is normal. LFTs show an albumin of 2.0 and globulin of 4.5. Chem-7 shows a chloride of 111, calcium 8.0, glucose 120, BUN 40, creatinine 2.39. Creatinine is ranged between 1.66-1.76 in 2019. CBC shows a white count of 11.7 with 75 segmented neutrophils, 12 monocytes, 11 lymphocytes, and 1.3% immature granulocytes. H&H is 9.0 and 20.7. Covid?19 PCR is negative. Clinical Impression(s) from Imaging Studies Chest X-Ray 10/13/20 16:31 IMPRESSION: Moderate to severe right upper lobe pneumonia superimposed on chronic interstitial lung disease Electronically Signed: Errol Shrestha MD at 18:25 EST , Service support , Emergency Department Course and Treatment: Patient had blood cultures obtained. He was given Rocephin and Zithromax IV. He has not been hypoxic while here. He is resting comfortably. Treatment Plan: Patient will be discussed with the hospitalist admitted for further evaluation and treatment. Disposition: Admitted in stable condition. Impression: 1. Pneumonia. 2. Anemia. 3. Acute on chronic renal insufficiency. This note was generated with [employer] software. It may contain incorrect words, spelling, and punctuation that were not noted in review of the chart prior to signing ED Disposition - Plan for ED Patient: Referrals: Samuel Avendaño MD [Primary Care Provider] -
[2020-10-13 16:57] LABS: ALB/GLOB Ratio 0.4 RATIO (0.9-2.4); AST(SGOT) 34 U/L (15-37); Alanine Aminotransfer ALT/SGPT 34 U/L (16-61); Alkaline Phosphatase 65 U/L (45-117); Anion Gap 8 (5-15); BUN 40 mg/dL (7-18); BUN/Creat Ratio 16.7 RATIO (10-20); Chloride 111 mmol/L (98-107); Creatinine, Serum 2.39 mg/dL (0.70-1.30); EST Glomerular Filtration Rate 28 mL/min (>60); Est Glom Filt Rate - Afr Amer 34 mL/min (>60); Estimated Creatinine Clearance 21.87 ml/min; Globulin 4.5 g/dL (2.2-4.2); Glucose 128 mg/dL (74-106); Potassium 4.8 mmol/L (3.5-5.1); Protein, Total 6.5 g/dL (6.4-8.2); Sodium Level 140 mmol/L (136-145)
[2020-10-13 17:11] LABS: Bacteria 0 SEEN /hpf (None Seen); Mucous, Urine 0 SEEN /hpf (<or=2+); Red Blood Cells-Urine 0 SEEN /hpf (0-5)
[2020-10-13 17:14] LABS: Color, Urine Yellow (Yellow); Glucose, Dipstick Normal (Normal); Ketone-Dipstick Negative (Negative); Leukocyte Esterase-Dipstick Negative /ul (Negative); Nitrite-Dipstick Negative (Negative); Occult Blood-Urine Negative /ul (Negative); Protein-Dipstick Negative (Negative); Urine Bilirubin Dipstick Negative (Negative); Urine Clarity Clear (Clear); Urine Urobilinogen Normal (Normal)
[2020-10-13 17:25] LABS: Squamous Epithelial Cells - UA 0-5 SEEN /hpf (0-5)
[2020-10-13 17:27] LABS: White Blood Cells 0-5 SEEN /hpf (0-5)
[2020-10-13] MEDS: Ceftriaxone 1 GM/50 ML BAG IV (18:22)
[2020-10-13] MEDS: oxyCODONE 5 MG Tablet PO (18:59)
--- NOTE | 2020-10-13 19:59 | PCM.CONS.GEN ---
Reason for Consult Date of Consultation: 10/13/20 Reason for Consultation: Generalized weakness History of Present Illness: The patient is a 80 year old M with PMH as below presents to the hospital with weakness and just not feeling right. He says that his symptoms have been going on for 2 or 3 weeks. He has some chills as well as rhinorrhea and a slight cough. He denies any chest pain or shortness of breath he denies any sick contacts. 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 In the ER he was found to have a slight leukocytosis to 11.7, he does have an LUCAS with an elevation in his creatinine from 1.6 to 2.39. He has had symptoms for 2 or 3 weeks, and his Covid test was negative therefore he does not need isolation or management for Covid and can go to the PCU. Heading of this note should read history and physical and the consultation malfunction by [employer] Past Medical History Past Medical History (Chronic Problems): Chronic Problems Bilateral lower extremity edema (Chronic) Toe pain, left (Chronic) Toe pain, right (Chronic) Finger pain, left (Chronic) Finger pain, right (Chronic) Tinea manus (Chronic) Tinea unguium (Chronic) Atrial fibrillation (Chronic) Diabetes mellitus (Chronic) Coronary artery disease (Chronic) BPH (benign prostatic hyperplasia) (Chronic) Pulmonary fibrosis (Chronic) COPD (chronic obstructive pulmonary disease) (Chronic) S/P CABG (coronary artery bypass graft) (Chronic) S/P PTCA (percutaneous transluminal coronary angioplasty) (Chronic) Aortic valve disease (Chronic) PVT (paroxysmal ventricular tachycardia) (Chronic) History of PSVT (paroxysmal supraventricular tachycardia) (Chronic) CAD (coronary artery disease) (Chronic) Diabetes mellitus, type II (Chronic) Hyperlipidemia (Chronic) History of atrial fibrillation (Chronic) Hypertension (Chronic) Rheumatoid arthritis (Chronic) BPH (benign prostatic hyperplasia) (Chronic) Allergies Penicillins Allergy (Verified 10/13/20 16:20) Rash Home Medications: Ambulatory Orders Medication Instructions Recorded Aspirin [Aspirin, Baby] 81 mg PO DAILY@0800 03/10/14 Lisinopril [Zestril] 20 mg PO BID 03/10/14 Multivitamin [Daily Multiple 1 each PO DAILY 02/19/17 Vitamin] Acetaminophen [Tylenol] 1,000 mg PO Q8H PRN PRN tablet 06/22/17 Atorvastatin Calcium [Lipitor] 40 mg PO QHS #30 tablet 06/22/17 Carvedilol [Coreg] 12.5 mg PO BID #60 06/22/17 Insulin Aspart [Novolog Flexpen] 0 units SC TIDCM #1 06/22/17 Ipratropium/Albuterol Sulfate 3 ml INHALATION Q4H PRN PRN #30 06/22/17 [Duoneb] Isosorbide Mononitrate [Imdur] 30 mg PO DAILY #30 06/22/17 Pantoprazole Sodium [Protonix] 40 mg PO DAILY #30 06/22/17 Ipratropium/Albuterol Sulfate 3 ml INHALATION Q4H PRN #180 06/25/17 [Duoneb] ampul.neb Potassium Chloride [K-Dur] 40 meq PO DAILY #60 06/25/17 Amlodipine [Norvasc] 10 mg PO DAILY 09/26/20 Calcium Citrate 250 mg PO BID 09/26/20 Ferrous Sulfate 325 mg PO BID 09/26/20 Hydroxychloroquine Sulfate 200 mg PO DAILY 09/26/20 [Plaquenil] Tamsulosin HCl [Flomax] 0.8 mg PO QHS 09/26/20 hydrALAZINE [Apresoline] 50 mg PO 4X/DAY 09/26/20 Surgical History: appendectomy, cataract, coronary bypass surgery, - - Lumbar decompression surgery, lumbar decompression revision surgery, cardiac stents x 4. Psychiatric History: No pertinent psych hx Smoking Status: Never smoker Alcohol: None Drugs: None - *Family History Maternal History Items: Diabetes, Heart Disease Paternal History Items: Diabetes, Heart Disease - father, all brothers, one sister Review of Systems Constitutional: Reports: Chills, Weakness. Denies: Fever, Weight Change HEENT: Denies: Head Aches, Sinus Congestion, Sinus Drainage Cardiovascular: Denies: Chest Pain, Palpitations Respiratory: Reports: Cough. Denies: Shortness of Breath, Shortness of breath at rest, Sputum production Gastrointestinal: Denies: Abdominal Pain, Nausea, Vomiting Genitourinary: Denies: Dysuria Musculoskeletal: Denies: Joint Pain, Joint Tenderness Skin: Denies: Rash, Wounds Neurological: Denies: Numbness, Tingling, Focal weakness Psychiatric: Denies: Anxiety, Depression Hematologic/ Lymphatic: Denies: Easy Bruising, Easy Bleeding - Physical Exam Vitals/I&O's: Vital Signs Temp Pulse Resp BP Pulse Ox 97.9 F 67 20 H 148/65 H 97 10/13/20 19:27 10/13/20 19:27 10/13/20 19:27 10/13/20 19:27 10/13/20 19:27 Oxygen Flow Rate (L/min) 2.5 Oxygen Delivery Method Nasal Cannula Weight: 200 lb 9.93 oz Body Mass Index (BMI) 32.3 Finger Stick Blood Glucose 128 General: Alert, Oriented x3, Cooperative, No apparent distress HEENT: Atraumatic, PERRLA, EOMI, Normocephalic Oral: Moist Mucosa Neck: Supple, No JVD Lungs: Normal air movement, Diminished, - - Crackles in the right upper lobe Cardiovascular: Regular rate, Regular Rhythm, Normal S1, Normal S2, No murmurs Abdomen: Soft, Non Tender, Non-Distended, No Hepato-splenomegaly Extremities: No edema, Capillary Refill Less than 3 Seconds Skin: No rashes, No breakdown Neurological: Neuro grossly intact, Sensory exam intact to light touch and pain Psych/Mental Status: Normal Affect, Appropriate Laboratory Results 10/13/20 16:20: WBC 11.7 H, RBC 3.20 L, Hgb 9.0 L, Hct 28.7 L, MCV 89.7, MCH 28.1, MCHC 31.4 L, RDW Std Deviation 43.1, RDW Coeff of Saloni 13.1, Plt Count 434, MPV 10.3, Immature Gran % (Auto) 1.300 H, Neut % (Auto) 74.9 H, Lymph % (Auto) 10.9 L, [place] % (Auto) 11.8 H, Eos % (Auto) 0.7, Baso % (Auto) 0.4, Absolute Neuts (auto) 8.8 H, Absolute Lymphs (auto) 1.28, Nucleated RBC % 0 10/13/20 16:20: Sodium 140, Potassium 4.8, Chloride 111 H, Carbon Dioxide 21.0, Anion Gap 8, BUN 40 H, Creatinine 2.39 H, Estim Creat Clear Calc 21.87, Est GFR (MDRD) Af Amer 34 L, Est GFR (MDRD) Non-Af 28 L, BUN/Creatinine Ratio 16.7, Glucose 128 H, Calcium 8.0 L, Total Bilirubin 0.60, AST 34, ALT 34, Alkaline Phosphatase 65, Troponin I 0.036, Total Protein 6.5, Albumin 2.0 L, Globulin 4.5 H, Albumin/Globulin Ratio 0.4 L 10/13/20 16:20: Lactic Acid 1.0 10/13/20 16:30: COVID-19 ([facility]) Not Detected 10/13/20 17:00: Urine Color Yellow, Urine Clarity Clear, Urine pH 6.0, Ur Specific [place] 1.010, Urine Protein Negative, Urine Glucose (UA) Normal, Urine Ketones Negative, Urine Occult Blood Negative, Urine Nitrite Negative, Urine Bilirubin Negative, Urine Urobilinogen Normal, Ur Leukocyte Esterase Negative, Urine RBC 0 SEEN, Urine WBC 0-5 SEEN, Ur Squamous Epith Cells 0-5 SEEN, Urine Bacteria 0 SEEN, Urine Mucus 0 SEEN Assessment/Plan All Active Problems Pneumonia (Acute) Congestive heart failure (Acute) Amiodarone pulmonary toxicity (Acute) LUCAS (acute kidney injury) (Acute) Heart failure with reduced ejection fraction (Acute) Acute respiratory failure (Acute) Shortness of breath (Acute) Lower leg edema (Acute) CHF, acute (Acute) S/P lumbar fusion (Acute) 1. Right upper lobe community-acquired pneumonia from a likely gram-positive organism/LUCAS -Continue with Rocephin and azithromycin -He does not meet sepsis criteria -We will obtain Legionella and strep urine antigen -Covid negative -Does not require oxygen and has not been hypoxic -Creatinine is around 1.6, admission creatinine is 2.39 2. CAD status post CABG/A. fib status post pacemaker/HTN/HLD -His blood pressure is stable -Can continue with his Norvasc, aspirin, Lipitor, Coreg, hydralazine and isosorbide -We will hold lisinopril secondary to LUCAS 3. Interstitial lung disease -He denies being on any inhalers at home -States that he had this because he was placed on amiodarone for too long of the duration 4. GERD -Stable -Continue with PPI 5. Chronic iron deficiency anemia -Hemoglobin is at baseline -Continue with iron replacement 6. BPH -Stable -Continue with Flomax 7. Rheumatoid arthritis -Stable -Continue with Plaquenil DVT: Heparin Inpatient E&M: 35898 Init Hosp L3
--- NOTE | 2020-10-13 20:51 | ED.RN ---
PT ASKED FOR THIS RN TO CALL HIS GRANDDAUGHTER VANESSA (JOVANNY). FAMILY UPDATED.
[2020-10-13] MEDS: 0.9% Normal Saline 1,000 ML 75 ML IV (21:55)
[2020-10-13] MEDS: Atorvastatin Calcium 40 MG Tablet PO (22:10)
[2020-10-13] MEDS: Ferrous Sulfate 325 MG Tablet PO (22:10)
[2020-10-13] MEDS: Carvedilol 12.5 MG Tablet PO (22:10)
[2020-10-13] MEDS: Tamsulosin HCl 0.4 MG Capsule 0.8 MG PO (22:10)
[2020-10-13] MEDS: hydrALAZINE 50 MG Tablet PO (22:10)
[2020-10-14] VITALS (12 sets, daily range): BP systolic 128–141; BP diastolic 58–65; PULSE 63–79; RESP 18–20; TEMP 36.9–37.2; O2SAT 92–94
[2020-10-14] MEDS: hydrALAZINE 50 MG Tablet PO ×3 (05:48→20:44)
[2020-10-14 06:14] LABS: Absolute Lymphocyte Count 1.02 X10^3/uL (0.83-4.51); Absolute Neutrophil Count 7.4 X10^3/uL (2.0-7.7); Basophil# 0.06 X10^3/uL; Basophil% 0.6 % (0-1); Eosinophil# 0.11 X10^3/uL; Eosinophils% 1.1 % (0-5); Hemoglobin 8.3 g/dL (13.0-16.5); Lymphocyte # 1.02 X10^3/ul (4.0); Lymphocyte % 10.5 % (19-41); Mean Corp Hgb Conc 30.7 g/dL (32-36); Mean Corpuscular Hgb 27.9 pg (27.0-32.0); Mean Corpuscular Volume 90.6 fL (80-94); Mean Platelet Vol. 9.2 fl (6.2-12.0); Monocyte# 1.13 X10^3/uL; Monocyte% 11.6 % (0-10); NRBC Flagged by Analyzer 0 % (0-5); Neutrophil # 7.35 X10^3/uL (2.7-7.7); Neutrophil % 75.3 % (47-70); Platelet Count 385 K/mm3 (150-450); RBC Distribution Width CV 13.2 % (11.6-14.6); RBC Distribution Width SD 43.4 fl (35.1-43.9); Red Blood Count 2.98 M/mm3 (4.6-6.2); White Blood Count 9.8 K/mm3 (4.4-11.0)
[2020-10-14 06:40] LABS: Anion Gap 6 (5-15); BUN 32 mg/dL (7-18); BUN/Creat Ratio 15.4 RATIO (10-20); Chloride 113 mmol/L (98-107); Creatinine, Serum 2.08 mg/dL (0.70-1.30); EST Glomerular Filtration Rate 33 mL/min (>60); Est Glom Filt Rate - Afr Amer 40 mL/min (>60); Estimated Creatinine Clearance 25.13 ml/min; Glucose 96 mg/dL (74-106); Magnesium 2.2 mg/dL (1.6-2.6); Potassium 4.5 mmol/L (3.5-5.1); Sodium Level 140 mmol/L (136-145)
[2020-10-14] MEDS: Enoxaparin 30 MG/0.3 ML Syringe SC (09:10)
[2020-10-14] MEDS: Hydroxychloroquine 200 MG Tablet PO (09:11)
[2020-10-14] MEDS: Carvedilol 12.5 MG Tablet PO ×2 (09:11→20:44)
[2020-10-14] MEDS: Ferrous Sulfate 325 MG Tablet PO (09:11)
[2020-10-14] MEDS: Aspirin 81 MG TAB.CHEW PO (09:11)
[2020-10-14] MEDS: amLODIPine 10 MG Tablet PO (09:11)
[2020-10-14] MEDS: Pantoprazole Sodium 40 MG Tablet PO (09:11)
[2020-10-14] MEDS: 0.9% Normal Saline 1,000 ML 75 ML IV ×2 (11:27→23:54)
--- NOTE | 2020-10-14 13:28 | NURSING ---
Addendum entered and electronically signed by Dottie Arguelles 10/14/20 13:54: Patient's residence: [address] [place] [address], [place] [address]. Address was updated in patient demographics. LEXIS Mauricio Original Note: RN CM Assessment Introduced role of RN CM to patient.? Patient is alert, oriented and able?to participate in RN CM Assessment. ?Care providers, pharmacy, and demographics verified. Admit Dx: RUL PNA Re-Admit: No Barriers/Issues: None PCP: Sohail Avendaño Specialists: Cardio- Dr Dawn Preferred Pharmacy: [facility] Insurance: [employer] A/B, AARP Rx Benefit:?Yes ?LNOK: Claude Mendieta LW/HPOA: HPOA on file- claude Mendieta Living Arrangements:? Lives alone in ground level apartment, 5 steps to enter home. Claude Kent and granddaughter Leela live right by patient. Address on file: [id number] [place] [address] is granddaughter's Leela Valenzuela. Patient's residence: [address] [place] [address]. ADL?s: Ambulates with a cane, uses walker for longer distances. Independent with ADLs except granddaughter Leela does bring meals and sorts medications. Transportation: Claude Kent or granddaughter Leela. Leela with transport upon DC. DME: Cane, Walker, Shower chair, Oxygen concentrator- states purchased in past but does not use it- unsure from what company. Denies having portable oxygen tanks. Glucometer. HHC: States current with our HHC calling now- this job specification writer did not see as active on daily HH email, patient possibly current with [facility]. Patient states preference for HHC if PT needed upon DC would be [facility]. SNF: [facility] in the past Goal: Home and does not think will have any needs. Does not feel he would need oxygen or HHC at time of DC. States that his strength has felt improved today compared to yesterday and has been up walking with PT. States that he is ready to walk with nurse again. Denies any issues or concerns with DC planning at this time. Aware RNCM will continue to follow for any emerging needs. DC PLAN: Home with possible HH PT- f/u PT/OT ([facility] HHC is needed), possible home O2 (Would only need portable oxygen tanks), F/u RA O2. Earnestine Arguelles RNCM
--- NOTE | 2020-10-14 14:09 | PN_ITS ---
<Darryl Polk PA - Last Filed: 10/14/20 14:09> Reason for Visit: SOB Subjective: Ongoing SOB at rest and significantly worse with exertion. Pt remains on o2 which he does not require at home. Will attempt to wean. He states overall he feels much better today noting that his overall energy is improved. He is still with some conversational dyspnea. Vitals/I&O's: Vital Signs Temp Pulse Resp BP Pulse Ox 98.6 F 77 20 H 137/58 H 94 10/14/20 09:13 10/14/20 09:13 10/14/20 09:13 10/14/20 09:13 10/14/20 09:13 Oxygen Flow Rate (L/min) 2 Oxygen Delivery Method Nasal Cannula Weight: 193 lb 5.526 oz Body Mass Index (BMI) 31.1 Finger Stick Blood Glucose 128 Intake and Output for Last 24 Hours 10/12/20 10/13/20 10/14/20 23:59 23:59 23:59 Intake Total 305 / 305 1200 / 1200 Output Total 100 / 100 500 / 500 Balance 205 / 205 700 / 700 General: Alert, Oriented x3, Cooperative HEENT: Atraumatic, PERRLA, EOMI, Normocephalic Neck: Supple, No JVD, Negative Carotid Bruits Lungs: Normal air movement, Rales - RML, Short of Breath Cardiovascular: Regular rate, No murmurs Abdomen: Bowel Sounds Present, Soft, Non Tender Extremities: No edema, Capillary Refill Less than 3 Seconds Skin: No rashes, No breakdown Musculoskeletal: No Tenderness to Palpation of Joints or Extremities Neurological: Cranial nerves II-XII grossly intact Psych/Mental Status: Normal Affect, Appropriate, Alert and oriented to time, place, person, mood and affect Microbiology Past 72 Hours 10/13/20 21:11 Urine, Clean Catch Legionella Antigen - Final 10/13/20 21:11 Urine, Clean Catch Streptococcus pneumoniae Antigen (M - Final Laboratory Results 10/13/20 16:20: WBC 11.7 H, RBC 3.20 L, Hgb 9.0 L, Hct 28.7 L, MCV 89.7, MCH 28.1, MCHC 31.4 L, RDW Std Deviation 43.1, RDW Coeff of Saloni 13.1, Plt Count 434, MPV 10.3, Immature Gran % (Auto) 1.300 H, Neut % (Auto) 74.9 H, Lymph % (Auto) 10.9 L, Holmes % (Auto) 11.8 H, Eos % (Auto) 0.7, Baso % (Auto) 0.4, Absolute Neuts (auto) 8.8 H, Absolute Lymphs (auto) 1.28, Nucleated RBC % 0 10/13/20 16:20: Sodium 140, Potassium 4.8, Chloride 111 H, Carbon Dioxide 21.0, Anion Gap 8, BUN 40 H, Creatinine 2.39 H, Estim Creat Clear Calc 21.87, Est GFR (MDRD) Af Amer 34 L, Est GFR (MDRD) Non-Af 28 L, BUN/Creatinine Ratio 16.7, Glucose 128 H, Calcium 8.0 L, Total Bilirubin 0.60, AST 34, ALT 34, Alkaline Phosphatase 65, Troponin I 0.036, Total Protein 6.5, Albumin 2.0 L, Globulin 4.5 H, Albumin/Globulin Ratio 0.4 L 10/13/20 16:20: Lactic Acid 1.0 10/13/20 16:30: COVID-19 ([facility]) Not Detected 10/13/20 17:00: Urine Color Yellow, Urine Clarity Clear, Urine pH 6.0, Ur Specific [place] 1.010, Urine Protein Negative, Urine Glucose (UA) Normal, Urine Ketones Negative, Urine Occult Blood Negative, Urine Nitrite Negative, Urine Bilirubin Negative, Urine Urobilinogen Normal, Ur Leukocyte Esterase Negative, Urine RBC 0 SEEN, Urine WBC 0-5 SEEN, Ur Squamous Epith Cells 0-5 SEEN, Urine Bacteria 0 SEEN, Urine Mucus 0 SEEN 10/14/20 06:06: WBC 9.8, RBC 2.98 L, Hgb 8.3 L, Hct 27.0 L, MCV 90.6, MCH 27.9, MCHC 30.7 L, RDW Std Deviation 43.4, RDW Coeff of Saloni 13.2, Plt Count 385, MPV 9.2, Immature Gran % (Auto) 0.900, Neut % (Auto) 75.3 H, Lymph % (Auto) 10.5 L, Holmes % (Auto) 11.6 H, Eos % (Auto) 1.1, Baso % (Auto) 0.6, Absolute Neuts (auto) 7.4, Absolute Lymphs (auto) 1.02, Nucleated RBC % 0 10/14/20 06:06: Sodium 140, Potassium 4.5, Chloride 113 H, Carbon Dioxide 21.0, Anion Gap 6, BUN 32 H, Creatinine 2.08 H, Estim Creat Clear Calc 25.13, Est GFR (MDRD) Af Amer 40 L, Est GFR (MDRD) Non-Af 33 L, BUN/Creatinine Ratio 15.4, Glucose 96, Calcium 8.0 L, Magnesium 2.2 Current Medications Acetaminophen (Acetaminophen 325 Mg Tablet) 650 mg PO Q6H PRN PRN PRN Reason: Pain Score 1-10/Temp > 100.7 F Amlodipine Besylate (Amlodipine 10 Mg Tablet) 10 mg PO DAILY [facility] Last Admin: 10/14/20 09:11 Dose: 10 mg Documented by: Aspirin (Aspirin 81 Mg Tab.Chew) 81 mg PO DAILY [facility] Last Admin: 10/14/20 09:11 Dose: 81 mg Documented by: Atorvastatin Calcium (Atorvastatin Calcium 40 Mg Tablet) 40 mg PO QHS [facility] Last Admin: 10/13/20 22:10 Dose: 40 mg Documented by: Azithromycin (Azithromycin 250 Mg Tablet) 500 mg PO Q24@2200 [facility] Stop: 10/15/20 22:01 Carvedilol (Carvedilol 12.5 Mg Tablet) 12.5 mg PO BID [facility] Last Admin: 10/14/20 09:11 Dose: 12.5 mg Documented by: Enoxaparin Sodium (Enoxaparin 30 Mg/0.3 Ml Syringe) 30 mg SC DAILY [facility] Last Admin: 10/14/20 09:10 Dose: 30 mg Documented by: Ferrous Sulfate (Ferrous Sulfate 325 Mg Tablet) 325 mg PO BID [facility] Last Admin: 10/14/20 09:11 Dose: 325 mg Documented by: Hydralazine HCl (Hydralazine 50 Mg Tablet) 50 mg PO TID [facility] Last Admin: 10/14/20 05:48 Dose: 50 mg Documented by: Hydroxychloroquine Sulfate (Hydroxychloroquine 200 Mg Tablet) 200 mg PO DAILY [facility] Last Admin: 10/14/20 09:11 Dose: 200 mg Documented by: Sodium Chloride () 1,000 mls @ 75 mls/hr IV .[id number] [facility] Last Admin: 10/14/20 11:27 Dose: 75 mls/hr Documented by: Ceftriaxone Sodium (Rocephin) 1 gm in 50 mls @ 100 mls/hr IV Q24@2200 [facility] Stop: 10/18/20 22:29 Melatonin (Melatonin 3 Mg Tablet) 3 mg PO QHS PRN PRN PRN Reason: INSOMNIA Ondansetron HCl (Ondansetron 4 Mg/2 Ml Vial) 4 mg IV Q8H PRN PRN PRN Reason: NAUSEA/VOMITING Pantoprazole Sodium (Pantoprazole Sodium 40 Mg Tablet) 40 mg PO DAILY [facility] Last Admin: 10/14/20 09:11 Dose: 40 mg Documented by: Sodium Chloride (0.9% Saline Lock 10 Ml Syringe) 10 - 40 ml IV UD PRN PRN Reason: SALINE FLUSH Tamsulosin HCl (Tamsulosin Hcl 0.4 Mg Capsule) 0.8 mg PO QHS [facility] Last Admin: 10/13/20 22:10 Dose: 0.8 mg Documented by: Medical Necessity - Tobacco Use Smoking Status: Never smoker Assessment/Plan All Active Problems Pneumonia (Acute) Congestive heart failure (Acute) Amiodarone pulmonary toxicity (Acute) LUCAS (acute kidney injury) (Acute) Heart failure with reduced ejection fraction (Acute) Acute respiratory failure (Acute) Shortness of breath (Acute) Lower leg edema (Acute) CHF, acute (Acute) S/P lumbar fusion (Acute) 1. RUL pna - CAP, continue rocephin/azithro. covid neg. CXR with mod/sev RUL pna. Urine antigens neg. Blood cx pending. WBC elevation resolved. Afebrile. 2. CAD with prior CABG - continue aspirin, statin, coreg, hydralazine 3. Hx Afib - has PM. continue coreg. not on OAC. 3. LUCAS - nephrotoxins held. Improving. Continue IVF. 4. GERD - protonix 5. Chronic iron def anemia - continue po iron. 6. Hx RA - on plaquenil 7. BPH - continue flomax DVT ppx: lovenox This patient was seen by Darryl Polk PA-C under the supervision of Dr. Lee. <Zacarias Lee - Last Filed: 10/14/20 16:10> Reason for Visit: Patient admitted with acute hypoxic respiratory failure secondary to pneumonia. 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 Objective: Patient has history of coronary artery status post multiple stents and CABG. Has interstitial lung disease due to amiodarone. He had amiodarone for 5 years and has been discontinued in the past Physical exam General: Alert, Oriented x3, Cooperative HEENT: Atraumatic, PERRLA, EOMI, Normocephalic Oral: No Gingival or Mucosal Lesions/ Ulcerations Neck: Supple, No JVD, Negative Carotid Bruits Lungs: Air entry diminished in bilateral lung bases. Bilateral lung bases expiratory rhonchi. Cardiovascular: Paced rhythm on buck swamper, status post CABG, normal S1, Normal S2, ejection systolic murmur over right second ICS and holosystolic murmur over cardiac apex. Abdomen: Bowel Sounds Present, Soft, Non Tender, Non-Distended : No renal angle tenderness. No suprapubic tenderness. Extremities: No edema, Capillary Refill Less than 3 Seconds Skin: No rashes, No breakdown Musculoskeletal: No Tenderness to Palpation of Joints or Extremities Neurological: Cranial nerves II-XII grossly intact, Deep Tendon Reflexes 2+/4 and Symmetrical, Neuro grossly intact Psych/Mental Status: Normal Affect, Appropriate. Vitals/I&O's: Vital Signs Temp Pulse Resp BP Pulse Ox 98.8 F 67 20 H 141/59 H 92 10/14/20 15:02 10/14/20 15:02 10/14/20 15:02 10/14/20 15:02 10/14/20 15:02 Oxygen Flow Rate (L/min) 2 Oxygen Delivery Method Room Air Weight: 193 lb 5.526 oz Body Mass Index (BMI) 31.1 Finger Stick Blood Glucose 128 Intake and Output for Last 24 Hours 10/12/20 10/13/20 10/14/20 23:59 23:59 23:59 Intake Total 305 / 305 1200 / 1200 Output Total 100 / 100 500 / 500 Balance 205 / 205 700 / 700 Microbiology Past 72 Hours 10/13/20 21:11 Urine, Clean Catch Legionella Antigen - Final 10/13/20 21:11 Urine, Clean Catch Streptococcus pneumoniae Antigen (M - Final Laboratory Results 10/13/20 16:20: WBC 11.7 H, RBC 3.20 L, Hgb 9.0 L, Hct 28.7 L, MCV 89.7, MCH 28.1, MCHC 31.4 L, RDW Std Deviation 43.1, RDW Coeff of Saloni 13.1, Plt Count 434, MPV 10.3, Immature Gran % (Auto) 1.300 H, Neut % (Auto) 74.9 H, Lymph % (Auto) 10.9 L, Holmes % (Auto) 11.8 H, Eos % (Auto) 0.7, Baso % (Auto) 0.4, Absolute Neuts (auto) 8.8 H, Absolute Lymphs (auto) 1.28, Nucleated RBC % 0 10/13/20 16:20: Sodium 140, Potassium 4.8, Chloride 111 H, Carbon Dioxide 21.0, Anion Gap 8, BUN 40 H, Creatinine 2.39 H, Estim Creat Clear Calc 21.87, Est GFR (MDRD) Af Amer 34 L, Est GFR (MDRD) Non-Af 28 L, BUN/Creatinine Ratio 16.7, Glucose 128 H, Calcium 8.0 L, Total Bilirubin 0.60, AST 34, ALT 34, Alkaline Phosphatase 65, Troponin I 0.036, Total Protein 6.5, Albumin 2.0 L, Globulin 4.5 H, Albumin/Globulin Ratio 0.4 L 10/13/20 16:20: Lactic Acid 1.0 10/13/20 16:30: COVID-19 ([facility]) Not Detected 10/13/20 17:00: Urine Color Yellow, Urine Clarity Clear, Urine pH 6.0, Ur Specific [place] 1.010, Urine Protein Negative, Urine Glucose (UA) Normal, Urine Ketones Negative, Urine Occult Blood Negative, Urine Nitrite Negative, Urine Bilirubin Negative, Urine Urobilinogen Normal, Ur Leukocyte Esterase Negative, Urine RBC 0 SEEN, Urine WBC 0-5 SEEN, Ur Squamous Epith Cells 0-5 SEEN, Urine Bacteria 0 SEEN, Urine Mucus 0 SEEN 10/14/20 06:06: WBC 9.8, RBC 2.98 L, Hgb 8.3 L, Hct 27.0 L, MCV 90.6, MCH 27.9, MCHC 30.7 L, RDW Std Deviation 43.4, RDW Coeff of Saloni 13.2, Plt Count 385, MPV 9.2, Immature Gran % (Auto) 0.900, Neut % (Auto) 75.3 H, Lymph % (Auto) 10.5 L, Holmes % (Auto) 11.6 H, Eos % (Auto) 1.1, Baso % (Auto) 0.6, Absolute Neuts (auto) 7.4, Absolute Lymphs (auto) 1.02, Nucleated RBC % 0 10/14/20 06:06: Sodium 140, Potassium 4.5, Chloride 113 H, Carbon Dioxide 21.0, Anion Gap 6, BUN 32 H, Creatinine 2.08 H, Estim Creat Clear Calc 25.13, Est GFR (MDRD) Af Amer 40 L, Est GFR (MDRD) Non-Af 33 L, BUN/Creatinine Ratio 15.4, Glucose 96, Calcium 8.0 L, Magnesium 2.2 Current Medications Acetaminophen (Acetaminophen 325 Mg Tablet) 650 mg PO Q6H PRN PRN PRN Reason: Pain Score 1-10/Temp > 100.7 F Amlodipine Besylate (Amlodipine 10 Mg Tablet) 10 mg PO DAILY [facility] Last Admin: 10/14/20 09:11 Dose: 10 mg Documented by: Aspirin (Aspirin 81 Mg Tab.Chew) 81 mg PO DAILY [facility] Last Admin: 10/14/20 09:11 Dose: 81 mg Documented by: Atorvastatin Calcium (Atorvastatin Calcium 40 Mg Tablet) 40 mg PO QHS [facility] Last Admin: 10/13/20 22:10 Dose: 40 mg Documented by: Azithromycin (Azithromycin 250 Mg Tablet) 500 mg PO Q24@2200 [facility] Stop: 10/15/20 22:01 Carvedilol (Carvedilol 12.5 Mg Tablet) 12.5 mg PO BID [facility] Last Admin: 10/14/20 09:11 Dose: 12.5 mg Documented by: Enoxaparin Sodium (Enoxaparin 30 Mg/0.3 Ml Syringe) 30 mg SC DAILY [facility] Last Admin: 10/14/20 09:10 Dose: 30 mg Documented by: Ferrous Sulfate (Ferrous Sulfate 325 Mg Tablet) 325 mg PO BID [facility] Last Admin: 10/14/20 09:11 Dose: 325 mg Documented by: Hydralazine HCl (Hydralazine 50 Mg Tablet) 50 mg PO TID [facility] Last Admin: 10/14/20 14:59 Dose: 50 mg Documented by: Hydroxychloroquine Sulfate (Hydroxychloroquine 200 Mg Tablet) 200 mg PO DAILY [facility] Last Admin: 10/14/20 09:11 Dose: 200 mg Documented by: Sodium Chloride () 1,000 mls @ 75 mls/hr IV .[id number] [facility] Last Admin: 10/14/20 11:27 Dose: 75 mls/hr Documented by: Ceftriaxone Sodium (Rocephin) 1 gm in 50 mls @ 100 mls/hr IV Q24@2200 [facility] Stop: 10/18/20 22:29 Isosorbide Mononitrate (Isosorbide Mononitrate 30 Mg Tablet) 30 mg PO DAILY [facility] Melatonin (Melatonin 3 Mg Tablet) 3 mg PO QHS PRN PRN PRN Reason: INSOMNIA Ondansetron HCl (Ondansetron 4 Mg/2 Ml Vial) 4 mg IV Q8H PRN PRN PRN Reason: NAUSEA/VOMITING Pantoprazole Sodium (Pantoprazole Sodium 40 Mg Tablet) 40 mg PO DAILY [facility] Last Admin: 10/14/20 09:11 Dose: 40 mg Documented by: Sodium Chloride (0.9% Saline Lock 10 Ml Syringe) 10 - 40 ml IV UD PRN PRN Reason: SALINE FLUSH Tamsulosin HCl (Tamsulosin Hcl 0.4 Mg Capsule) 0.8 mg PO QHS [facility] Last Admin: 10/13/20 22:10 Dose: 0.8 mg Documented by: STROKE Vital Signs/Narrative: Vital Signs Temp Pulse Resp BP Pulse Ox 10/14/20 15:02 98.8 F 67 20 H 141/59 H 92 10/14/20 14:59 67 10/14/20 14:55 65 Assessment/Plan This patient was seen in conjunction with Darryl GOODMAN. I have independently interviewed and examined the patient and reviewed pertinent history, examination findings, laboratory and plan of management. I have reviewed the note and agree with the documented findings with the few additional points. In brief, patient is 80-year-old gentleman with multiple comorbidities is admitted with shortness of breath and acute hypoxic respiratory failure. Chest x-ray shows severe right upper lobe pneumonia superimposed on chronic interstitial lung disease. Chest x-ray shows left subclavicular pacemaker and bilateral nodular disease. Patient is non-smoker. On IV Rocephin and Zithromax. COVID-19 PCR negative. Urinary antigens are negative. Hold hydroxychloroquine as patient is on Zithromax. Patient has history of coronary artery status post CABG, A. fib status post pacemaker. Patient follows outside chief pilot Dr. Oconnor in [facility]. Last echo in 2013 shows EF 60% with mild . Does not follow quality improvement coordinator. LUCAS probably due to infection and lisinopril: BUN/creatinine was less than 20s to 1. Improving. Patient on lisinopril 20 mg twice daily, hydroxychloroquine at home. Not on diuretic. Nephrotoxic medications are on hold Other comorbidities include chronic iron versus anemia, RA on Plaquenil, GERD and BPH I have discussed my assessment with Darryl GOODMAN and orders have been reviewed. Clinical Impression(s) from Imaging Studies Chest X-Ray 10/13/20 16:31 IMPRESSION: Moderate to severe right upper lobe pneumonia superimposed on chronic interstitial lung disease Inpatient E&M: 61433 Subs Hosp L2
[2020-10-14] MEDS: Tamsulosin HCl 0.4 MG Capsule 0.8 MG PO (20:44)
[2020-10-14] MEDS: Atorvastatin Calcium 40 MG Tablet PO (20:45)
[2020-10-14] MEDS: Azithromycin 250 MG Tablet 500 MG PO (20:45)
[2020-10-14] MEDS: Ceftriaxone 1 GM/50 ML BAG IV (20:51)
[2020-10-15] VITALS (13 sets, daily range): BP systolic 129–147; BP diastolic 50–66; PULSE 62–81; RESP 18–20; TEMP 36.5–37.3; O2SAT 92–94
[2020-10-15] MEDS: guaiFENesin 10 ML UDC (200MG/10ML) 5 ML PO (02:32)
[2020-10-15] MEDS: hydrALAZINE 50 MG Tablet PO ×3 (05:49→21:55)
[2020-10-15] MEDS: 0.9% Saline Lock 10 ML Syringe IV ×2 (06:13→21:56)
[2020-10-15 07:01] LABS: Absolute Neutrophil Count 5.6 X10^3/uL (2.0-7.7); Basophil# 0.07 X10^3/uL; Basophil% 0.9 % (0-1); Eosinophils% 1.2 % (0-5); Hematocrit 27.8 % (40-54); Hemoglobin 8.3 g/dL (13.0-16.5); Lymphocyte % 13.7 % (19-41); Mean Corp Hgb Conc 29.9 g/dL (32-36); Mean Corpuscular Hgb 27.7 pg (27.0-32.0); Mean Corpuscular Volume 92.7 fL (80-94); Mean Platelet Vol. 10.1 fl (6.2-12.0); Monocyte# 1.08 X10^3/uL; Monocyte% 13.5 % (0-10); NRBC Flagged by Analyzer 0 % (0-5); Neutrophil # 5.58 X10^3/uL (2.7-7.7); Neutrophil % 69.7 % (47-70); Platelet Count 410 K/mm3 (150-450); RBC Distribution Width CV 13.2 % (11.6-14.6); RBC Distribution Width SD 45.1 fl (35.1-43.9)
[2020-10-15 07:37] LABS: Anion Gap 8 (5-15); BUN 26 mg/dL (7-18); BUN/Creat Ratio 13.7 RATIO (10-20); Chloride 113 mmol/L (98-107); EST Glomerular Filtration Rate 36 mL/min (>60); Est Glom Filt Rate - Afr Amer 44 mL/min (>60); Estimated Creatinine Clearance 27.52 ml/min; Glucose 115 mg/dL (74-106); Potassium 4.2 mmol/L (3.5-5.1); Sodium Level 139 mmol/L (136-145)
[2020-10-15] MEDS: Enoxaparin 30 MG/0.3 ML Syringe SC (08:16)
[2020-10-15] MEDS: Isosorbide Mononitrate 30 MG Tablet PO (08:16)
[2020-10-15] MEDS: amLODIPine 10 MG Tablet PO (08:17)
[2020-10-15] MEDS: Pantoprazole Sodium 40 MG Tablet PO (08:17)
[2020-10-15] MEDS: Aspirin 81 MG TAB.CHEW PO (08:17)
[2020-10-15] MEDS: Carvedilol 12.5 MG Tablet PO ×2 (08:17→21:56)
[2020-10-15] MEDS: Ferrous Sulfate 325 MG Tablet PO (12:17)
[2020-10-15] MEDS: guaiFENesin/Codeine 5 ML UDC PO ×2 (12:17→21:56)
--- NOTE | 2020-10-15 14:20 | CASEMGMT ---
Addendum entered by Lawrence Gallagher 10/15/20 14:33: Pt is active with [facility]. Call to [facility] to notify patient may need HHC on discharge. Robinson ALVAREZ Original Note: JOSE PENA Note: PT/ notes not available yet. Additional therapy recommended for OT. Likely patient would need HHC on discharge. Will follow PT. Patient would like [facility] if home health is recommended. Message left with Anya Reyes [facility] with anticipated dc tomorrow or . Robinson ALVAREZ
--- NOTE | 2020-10-15 14:46 | PN_ITS ---
<Darryl Polk PA - Last Filed: 10/15/20 14:46> Reason for Visit: pna Subjective: Pt now off O2. Still SOB with conversation, and worse with exertion. Ongoing productive cough. No fever/chills. No CP. No LE edema. Pt does not feel that he is ready for discharge and is requesting one more night. Vitals/I&O's: Vital Signs Temp Pulse Resp BP Pulse Ox 98.5 F 64 20 H 137/56 H 94 10/15/20 14:20 10/15/20 14:20 10/15/20 14:20 10/15/20 14:20 10/15/20 14:20 Oxygen Flow Rate (L/min) 2 Oxygen Delivery Method Nasal Cannula Weight: 193 lb 5.526 oz Body Mass Index (BMI) 31.1 Finger Stick Blood Glucose 128 Intake and Output for Last 24 Hours 10/13/20 10/14/20 10/15/20 23:59 23:59 23:59 Intake Total 305 / 305 2505.00 / 2505.00 1336.25 / 1336.25 Output Total 100 / 100 625 / 625 375 / 375 Balance 205 / 205 1880.00 / 1880.00 961.25 / 961.25 General: Alert, Oriented x3, Cooperative HEENT: Atraumatic, PERRLA, EOMI, Normocephalic Neck: Supple, No JVD, Negative Carotid Bruits Lungs: Diminished, Rales - RML/RUL Cardiovascular: Regular rate, No murmurs Abdomen: Bowel Sounds Present, Soft, Non Tender Extremities: No edema, Capillary Refill Less than 3 Seconds Skin: No rashes, No breakdown Musculoskeletal: No Tenderness to Palpation of Joints or Extremities Neurological: Cranial nerves II-XII grossly intact Psych/Mental Status: Normal Affect, Appropriate, Alert and oriented to time, place, person, mood and affect Microbiology Past 72 Hours 10/13/20 21:11 Urine, Clean Catch Legionella Antigen - Final 10/13/20 21:11 Urine, Clean Catch Streptococcus pneumoniae Antigen (M - Final Laboratory Results 10/15/20 06:44: WBC 8.0, RBC 3.00 L, Hgb 8.3 L, Hct 27.8 L, MCV 92.7, MCH 27.7, MCHC 29.9 L, RDW Std Deviation 45.1 H, RDW Coeff of Saloni 13.2, Plt Count 410, MPV 10.1, Immature Gran % (Auto) 1.000 H, Neut % (Auto) 69.7, Lymph % (Auto) 13.7 L, Phillips % (Auto) 13.5 H, Eos % (Auto) 1.2, Baso % (Auto) 0.9, Absolute Neuts (auto) 5.6, Absolute Lymphs (auto) 1.10, Nucleated RBC % 0 10/15/20 06:44: Sodium 139, Potassium 4.2, Chloride 113 H, Carbon Dioxide 18.0 L , Anion Gap 8, BUN 26 H, Creatinine 1.90 H, Estim Creat Clear Calc 27.52, Est GFR (MDRD) Af Amer 44 L, Est GFR (MDRD) Non-Af 36 L, BUN/Creatinine Ratio 13.7, Glucose 115 H, Calcium 8.0 L Current Medications Acetaminophen (Acetaminophen 325 Mg Tablet) 650 mg PO Q6H PRN PRN PRN Reason: Pain Score 1-10/Temp > 100.7 F Amlodipine Besylate (Amlodipine 10 Mg Tablet) 10 mg PO DAILY [facility] Last Admin: 10/15/20 08:17 Dose: 10 mg Documented by: Aspirin (Aspirin 81 Mg Tab.Chew) 81 mg PO DAILY [facility] Last Admin: 10/15/20 08:17 Dose: 81 mg Documented by: Atorvastatin Calcium (Atorvastatin Calcium 40 Mg Tablet) 40 mg PO QHS [facility] Last Admin: 10/14/20 20:45 Dose: 40 mg Documented by: Azithromycin (Azithromycin 250 Mg Tablet) 500 mg PO Q24@2200 [facility] Stop: 10/15/20 22:01 Last Admin: 10/14/20 20:45 Dose: 500 mg Documented by: Carvedilol (Carvedilol 12.5 Mg Tablet) 12.5 mg PO BID [facility] Last Admin: 10/15/20 08:17 Dose: 12.5 mg Documented by: Enoxaparin Sodium (Enoxaparin 30 Mg/0.3 Ml Syringe) 30 mg SC DAILY [facility] Last Admin: 10/15/20 08:16 Dose: 30 mg Documented by: Ferrous Sulfate (Ferrous Sulfate 325 Mg Tablet) 325 mg PO DAILY@1200 [facility] Last Admin: 10/15/20 12:17 Dose: 325 mg Documented by: Guaifenesin/Codeine Phosphate (Guaifenesin/Codeine 5 Ml Udc) 5 ml PO Q6H PRN PRN PRN Reason: COUGH Last Admin: 10/15/20 12:17 Dose: 5 ml Documented by: Hydralazine HCl (Hydralazine 50 Mg Tablet) 50 mg PO TID [facility] Last Admin: 10/15/20 14:15 Dose: 50 mg Documented by: Ceftriaxone Sodium (Rocephin) 1 gm in 50 mls @ 100 mls/hr IV Q24@2200 [facility] Stop: 10/18/20 22:29 Last Infusion: 10/14/20 21:21 Dose: Infused Documented by: Isosorbide Mononitrate (Isosorbide Mononitrate 30 Mg Tablet) 30 mg PO DAILY [facility] Last Admin: 10/15/20 08:16 Dose: 30 mg Documented by: Melatonin (Melatonin 3 Mg Tablet) 3 mg PO QHS PRN PRN PRN Reason: INSOMNIA Ondansetron HCl (Ondansetron 4 Mg/2 Ml Vial) 4 mg IV Q8H PRN PRN PRN Reason: NAUSEA/VOMITING Pantoprazole Sodium (Pantoprazole Sodium 40 Mg Tablet) 40 mg PO DAILY [facility] Last Admin: 10/15/20 08:17 Dose: 40 mg Documented by: Sodium Chloride (0.9% Saline Lock 10 Ml Syringe) 10 - 40 ml IV UD PRN PRN Reason: SALINE FLUSH Last Admin: 10/15/20 06:13 Dose: 10 ml Documented by: Tamsulosin HCl (Tamsulosin Hcl 0.4 Mg Capsule) 0.8 mg PO QHS [facility] Last Admin: 10/14/20 20:44 Dose: 0.8 mg Documented by: STROKE Vital Signs/Narrative: Vital Signs Temp Pulse Resp BP Pulse Ox 10/15/20 14:20 98.5 F 64 20 H 137/56 H 94 10/15/20 14:15 70 Medical Necessity - Tobacco Use Smoking Status: Never smoker Assessment/Plan All Active Problems Pneumonia (Acute) Congestive heart failure (Acute) Amiodarone pulmonary toxicity (Acute) LUCAS (acute kidney injury) (Acute) Heart failure with reduced ejection fraction (Acute) Acute respiratory failure (Acute) Shortness of breath (Acute) Lower leg edema (Acute) CHF, acute (Acute) S/P lumbar fusion (Acute) 1. RUL pna - CAP, continue rocephin/azithro. covid neg. CXR with mod/sev RUL pna. Urine antigens neg. Blood cx pending. WBC elevation resolved. Afebrile. -improved. -walking pulse ox prior to DC. -increase in sputum production overnight. continue mucinex, PEP, IS. 2. CAD with prior CABG - continue aspirin, statin, coreg, hydralazine 3. Hx Afib - has PM. continue coreg. not on OAC. 3. LUCAS - nephrotoxins held. Improving. Continue IVF. 4. GERD - protonix 5. Chronic iron def anemia - continue po iron. 6. Hx RA - on plaquenil 7. BPH - continue flomax DVT ppx: lovenox DC planning: Likely home no needs tomorrow. This patient was seen by Darryl Polk PA-C under the supervision of Dr. Lee. <Zacarias Lee - Last Filed: 10/15/20 17:11> Reason for Visit: Follow-up for pneumonia. Objective: Patient still has mild cough and sputum production although getting better. No fever or chills. T-max 99.2 Fahrenheit. Physical exam General: Alert, Oriented x3, Cooperative HEENT: Atraumatic, PERRLA, EOMI, Normocephalic Oral: No Gingival or Mucosal Lesions/ Ulcerations Neck: Supple, No JVD, Negative Carotid Bruits Lungs: Air entry diminished in bilateral lung bases. Occasional right lung b ase crepitation. Cardiovascular: Paced rhythm on color television console monitor, status post CABG, normal S1, Normal S2, ejection systolic murmur over right second ICS and holosystolic murmur over cardiac apex. Abdomen: Bowel Sounds Present, Soft, Non Tender, Non-Distended : No renal angle tenderness. No suprapubic tenderness. Extremities: No edema, Capillary Refill Less than 3 Seconds Skin: No rashes, No breakdown Musculoskeletal: No Tenderness to Palpation of Joints or Extremities Neurological: Cranial nerves II-XII grossly intact, Deep Tendon Reflexes 2+/4 and Symmetrical, Neuro grossly intact Psych/Mental Status: Normal Affect, Appropriate. Vitals/I&O's: Vital Signs Temp Pulse Resp BP Pulse Ox 98.5 F 74 20 H 137/56 H 94 10/15/20 14:20 10/15/20 14:56 10/15/20 14:20 10/15/20 14:20 10/15/20 14:20 Oxygen Flow Rate (L/min) 2 Oxygen Delivery Method Nasal Cannula Weight: 193 lb 5.526 oz Body Mass Index (BMI) 31.1 Finger Stick Blood Glucose 128 Intake and Output for Last 24 Hours 10/13/20 10/14/20 10/15/20 23:59 23:59 23:59 Intake Total 305 / 305 2505.00 / 2505.00 1336.25 / 1336.25 Output Total 100 / 100 625 / 625 375 / 375 Balance 205 / 205 1880.00 / 1880.00 961.25 / 961.25 Microbiology Past 72 Hours 10/13/20 21:11 Urine, Clean Catch Legionella Antigen - Final 10/13/20 21:11 Urine, Clean Catch Streptococcus pneumoniae Antigen (M - Final Laboratory Results 10/15/20 06:44: WBC 8.0, RBC 3.00 L, Hgb 8.3 L, Hct 27.8 L, MCV 92.7, MCH 27.7, MCHC 29.9 L, RDW Std Deviation 45.1 H, RDW Coeff of Saloni 13.2, Plt Count 410, MPV 10.1, Immature Gran % (Auto) 1.000 H, Neut % (Auto) 69.7, Lymph % (Auto) 13.7 L, Phillips % (Auto) 13.5 H, Eos % (Auto) 1.2, Baso % (Auto) 0.9, Absolute Neuts (auto) 5.6, Absolute Lymphs (auto) 1.10, Nucleated RBC % 0 10/15/20 06:44: Sodium 139, Potassium 4.2, Chloride 113 H, Carbon Dioxide 18.0 L , Anion Gap 8, BUN 26 H, Creatinine 1.90 H, Estim Creat Clear Calc 27.52, Est GFR (MDRD) Af Amer 44 L, Est GFR (MDRD) Non-Af 36 L, BUN/Creatinine Ratio 13.7, Glucose 115 H, Calcium 8.0 L Current Medications Acetaminophen (Acetaminophen 325 Mg Tablet) 650 mg PO Q6H PRN PRN PRN Reason: Pain Score 1-10/Temp > 100.7 F Amlodipine Besylate (Amlodipine 10 Mg Tablet) 10 mg PO DAILY [facility] Last Admin: 10/15/20 08:17 Dose: 10 mg Documented by: Aspirin (Aspirin 81 Mg Tab.Chew) 81 mg PO DAILY [facility] Last Admin: 10/15/20 08:17 Dose: 81 mg Documented by: Atorvastatin Calcium (Atorvastatin Calcium 40 Mg Tablet) 40 mg PO QHS [facility] Last Admin: 10/14/20 20:45 Dose: 40 mg Documented by: Azithromycin (Azithromycin 250 Mg Tablet) 500 mg PO Q24@2200 [facility] Stop: 10/15/20 22:01 Last Admin: 10/14/20 20:45 Dose: 500 mg Documented by: Carvedilol (Carvedilol 12.5 Mg Tablet) 12.5 mg PO BID [facility] Last Admin: 10/15/20 08:17 Dose: 12.5 mg Documented by: Enoxaparin Sodium (Enoxaparin 30 Mg/0.3 Ml Syringe) 30 mg SC DAILY [facility] Last Admin: 10/15/20 08:16 Dose: 30 mg Documented by: Ferrous Sulfate (Ferrous Sulfate 325 Mg Tablet) 325 mg PO DAILY@1200 [facility] Last Admin: 10/15/20 12:17 Dose: 325 mg Documented by: Guaifenesin/Codeine Phosphate (Guaifenesin/Codeine 5 Ml Udc) 5 ml PO Q6H PRN PRN PRN Reason: COUGH Last Admin: 10/15/20 12:17 Dose: 5 ml Documented by: Hydralazine HCl (Hydralazine 50 Mg Tablet) 50 mg PO TID [facility] Last Admin: 10/15/20 14:15 Dose: 50 mg Documented by: Ceftriaxone Sodium (Rocephin) 1 gm in 50 mls @ 100 mls/hr IV Q24@2200 [facility] Stop: 10/18/20 22:29 Last Infusion: 10/14/20 21:21 Dose: Infused Documented by: Isosorbide Mononitrate (Isosorbide Mononitrate 30 Mg Tablet) 30 mg PO DAILY [facility] Last Admin: 10/15/20 08:16 Dose: 30 mg Documented by: Melatonin (Melatonin 3 Mg Tablet) 3 mg PO QHS PRN PRN PRN Reason: INSOMNIA Ondansetron HCl (Ondansetron 4 Mg/2 Ml Vial) 4 mg IV Q8H PRN PRN PRN Reason: NAUSEA/VOMITING Pantoprazole Sodium (Pantoprazole Sodium 40 Mg Tablet) 40 mg PO DAILY [facility] Last Admin: 10/15/20 08:17 Dose: 40 mg Documented by: Sodium Chloride (0.9% Saline Lock 10 Ml Syringe) 10 - 40 ml IV UD PRN PRN Reason: SALINE FLUSH Last Admin: 10/15/20 06:13 Dose: 10 ml Documented by: Tamsulosin HCl (Tamsulosin Hcl 0.4 Mg Capsule) 0.8 mg PO QHS [facility] Last Admin: 10/14/20 20:44 Dose: 0.8 mg Documented by: STROKE Vital Signs/Narrative: Vital Signs Temp Pulse Resp BP Pulse Ox 10/15/20 14:56 74 10/15/20 14:20 98.5 F 64 20 H 137/56 H 94 10/15/20 14:15 70 Assessment/Plan This patient was seen in conjunction with Darryl GOODMAN. I have independently interviewed and examined the patient and reviewed pertinent history, examination findings, laboratory and plan of management. I have reviewed the note and agree with the documented findings with the few additional points. In brief, patient is 80-year-old gentleman with multiple comorbidities is admitted with shortness of breath and acute hypoxic respiratory failure. Chest x-ray shows severe right upper lobe pneumonia superimposed on chronic interstitial lung disease. Chest x-ray shows left subclavicular pacemaker and bilateral nodular disease. Patient is non-smoker. On IV Rocephin and Zithromax. COVID-19 PCR negative. Urinary antigens are negative. Hold hydroxychloroquine as patient is on Zithromax. 10/15: Continue Mucinex, incentive spirometry and chest physiotherapy. Patient on 2 L of oxygen. Try to wean oxygen. Patient has history of coronary artery status post CABG, A. fib status post pacemaker. Patient follows outside biomedical electronics technician Dr. Oconnor in [facility]. Last echo in 2013 shows EF 60% with mild . 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 LUCAS probably due to infection and lisinopril: BUN/creatinine was less than 20s to 1. Improving. Patient on lisinopril 20 mg twice daily, hydroxychloroquine at home. Not on diuretic. Nephrotoxic medications are on hold 10/15: BUN/creatinine improving. Other comorbidities include chronic iron versus anemia, RA on Plaquenil, GERD and BPH I have discussed my assessment with Darryl GOODMAN and orders have been reviewed. Clinical Impression(s) from Imaging Studies Chest X-Ray 10/13/20 16:31 IMPRESSION: Moderate to severe right upper lobe pneumonia superimposed on chronic interstitial lung disease Inpatient E&M: 06147 Subs Hosp L2
[2020-10-15] MEDS: guaiFENesin 1,200 MG Tablet 1200 MG PO (17:46)
[2020-10-15] MEDS: Atorvastatin Calcium 40 MG Tablet PO (21:55)
[2020-10-15] MEDS: MELATONIN 3 MG TABLET PO (21:56)
[2020-10-15] MEDS: Tamsulosin HCl 0.4 MG Capsule 0.8 MG PO (21:56)
[2020-10-15] MEDS: Azithromycin 250 MG Tablet 500 MG PO (21:56)
[2020-10-15] MEDS: Ceftriaxone 1 GM/50 ML BAG IV (21:56)
[2020-10-16] VITALS (8 sets, daily range): BP systolic 135–143; BP diastolic 57–87; PULSE 68–76; RESP 18; TEMP 36.6–37.1; O2SAT 92–95
[2020-10-16] MEDS: hydrALAZINE 50 MG Tablet PO (05:19)
[2020-10-16 07:03] LABS: Absolute Lymphocyte Count 0.99 X10^3/uL (0.83-4.51); Absolute Neutrophil Count 5.3 X10^3/uL (2.0-7.7); Basophil# 0.06 X10^3/uL; Basophil% 0.8 % (0-1); Eosinophil# 0.18 X10^3/uL; Eosinophils% 2.4 % (0-5); Hematocrit 27.5 % (40-54); Hemoglobin 8.4 g/dL (13.0-16.5); Lymphocyte # 0.99 X10^3/ul (4.0); Lymphocyte % 13.1 % (19-41); Mean Corp Hgb Conc 30.5 g/dL (32-36); Mean Corpuscular Volume 91.7 fL (80-94); Mean Platelet Vol. 9.6 fl (6.2-12.0); Monocyte# 0.99 X10^3/uL; Monocyte% 13.1 % (0-10); NRBC Flagged by Analyzer 0 % (0-5); Neutrophil # 5.27 X10^3/uL (2.7-7.7); Neutrophil % 69.8 % (47-70); Platelet Count 394 K/mm3 (150-450); RBC Distribution Width CV 13.3 % (11.6-14.6); RBC Distribution Width SD 43.7 fl (35.1-43.9); White Blood Count 7.6 K/mm3 (4.4-11.0)
[2020-10-16 07:27] LABS: Anion Gap 7 (5-15); BUN 22 mg/dL (7-18); BUN/Creat Ratio 13.5 RATIO (10-20); Calcium,Total 8.2 mg/dL (8.5-10.1); Chloride 114 mmol/L (98-107); Creatinine, Serum 1.63 mg/dL (0.70-1.30); EST Glomerular Filtration Rate 43 mL/min (>60); Est Glom Filt Rate - Afr Amer 52 mL/min (>60); Estimated Creatinine Clearance 32.07 ml/min; Glucose 101 mg/dL (74-106); Potassium 4.1 mmol/L (3.5-5.1); Sodium Level 141 mmol/L (136-145)
[2020-10-16] MEDS: guaiFENesin 1,200 MG Tablet 1200 MG PO (09:06)
[2020-10-16] MEDS: Enoxaparin 30 MG/0.3 ML Syringe SC (09:06)
[2020-10-16] MEDS: Isosorbide Mononitrate 30 MG Tablet PO (09:06)
[2020-10-16] MEDS: amLODIPine 10 MG Tablet PO (09:06)
[2020-10-16] MEDS: Carvedilol 12.5 MG Tablet PO (09:06)
[2020-10-16] MEDS: Pantoprazole Sodium 40 MG Tablet PO (09:06)
[2020-10-16] MEDS: Aspirin 81 MG TAB.CHEW PO (09:06)
[2020-10-16] MEDS: Ferrous Sulfate 325 MG Tablet PO (09:07)
--- NOTE | 2020-10-16 09:54 | CASEMGMT ---
Addendum entered by Con Parker 10/16/20 11:56: Pt being discharged today. Call placed to Anya @ [facility] and she was made aware. Pt inquiring about the concentrator he has @ home and if he should be using it. Amb home pulse ox completed and has been reviewed. Pt does not qualify for Home O2. Pt was made aware of this and also made aware that he should not be using oxygen @ home w/out an order from the doctor, and currently, he does not need it. He was made aware, if in the future, he feels he needs oxygen, to f/u with his PCP RN, Kayleen, notified this RN CM that pt's granddaughter, Caron, had some questions and would like to talk w/RN CM. This RN CM spoke w/pt and he gave permission for RN CM to speak with Caron and share information with her. Call placed back to Caron. She inquired about pt needing oxygen. She was made aware amb pulse ox testing has been completed and that pt does not qualify for/need oxygen at this time. She was also made aware [facility] for [facility] and she voices appreciation of this. She was informed that [facility] would be on hold while pt getting [facility] and then they can resume once [facility] has discharged pt. She voices understanding. Original Note: JOSE PENA NOTE: PT/OT notes have been reviewed. To room to discuss discharge planning. Pt states he would like [facility] once he returns home. Pt aware, while he is active w/[facility], that [facility] will be on hold, and then can resume again after [facility] has discharged him. He voices understanding. He denies other needs/concerns with going home at discharge. Call placed to Anya @ [facility]. She was made aware pt would like [facility] and she states they are able to accept. Order placed for [facility]: SN, PT/OT. Anya aware pt currently active w/[facility]. She was also made aware pt will most likely discharge home today. Call placed to [facility]. She was made aware pt will be discharging home w/[facility]. Pt currently on RA, but will need ambulatory pulse ox prior to discharge. Kayleen GARCIA, hien. JOSE PENA to follow. James DUPREEN JOSE PENA
--- NOTE | 2020-10-16 10:53 | DCINST_ITS ---
You will use the following diet at home:: Calorie/Carbohydrate Controlled (specify 1200, 1400, etc) Your food should be the consistency of: Regular Your liquids should be the consistency of: Regular/Thin Discharge Activity: Return to Normal Activity Allergies/Adverse Reactions: Allergies Penicillins Allergy (Verified 10/13/20 16:20) Rash Medications to take at Discharge Aspirin [Aspirin, Baby] 81 mg PO DAILY@0800 03/10/14 Multivitamin [Daily Multiple Vitamin] 1 each PO DAILY 02/19/17 Atorvastatin Calcium [Lipitor] 40 mg PO QHS #30 tablet 06/22/17 Carvedilol [Coreg] 12.5 mg PO BID #60 06/22/17 Insulin Aspart [Novolog Flexpen] 0 units SC TIDCM #1 06/22/17 Ipratropium/Albuterol Sulfate [Duoneb] 3 ml INHALATION Q4H PRN PRN #30 06/22/17 Pantoprazole Sodium [Protonix] 40 mg PO DAILY #30 06/22/17 Ipratropium/Albuterol Sulfate [Duoneb] 3 ml INHALATION Q4H PRN #180 ampul.neb 06/25/17 Amlodipine [Norvasc] 10 mg PO DAILY 09/26/20 Calcium Citrate 250 mg PO BID 09/26/20 Ferrous Sulfate 325 mg PO BID 09/26/20 Hydroxychloroquine Sulfate [Plaquenil] 200 mg PO DAILY 09/26/20 Tamsulosin HCl [Flomax] 0.8 mg PO QHS 09/26/20 hydrALAZINE [Apresoline] 50 mg PO TID 09/26/20 Isosorbide Mononitrate [Imdur] 30 mg PO DAILY 10/13/20 Acetaminophen [Tylenol Tablet] 650 mg PO Q6H PRN PRN tab 10/16/20 Cefdinir [Omnicef [equiv]] 300 mg PO Q12H #8 cap 10/16/20 Lisinopril [Zestril] 20 mg PO DAILY #0 10/16/20 The following prescriptions were given: Cefdinir [Omnicef [equiv]] 300 mg PO Q12H #8 cap Transmission Status: Pending to [facility] [place] #30 Primary Care Physician: Samuel Avendaño MD [Primary Care Provider] - Please follow up with your Primary Care Physician in: 1-2 weeks Test Results: Test results from this visit will be discussed in further detail at your follow- up appointment, if applicable. Please Follow Up With: Samuel Avendaño MD Proposed Discharge Date: 10/16/20
--- NOTE | 2020-10-16 12:14 | NURSING ---
Went over DC paperwork with Caron, daughter, via phone
--- NOTE | 2020-10-16 13:35 | PHA.DC.MR ---
Pharmacy Service has performed discharge medication reconciliation for this patient. The patient's discharge medication list was reviewed for discrepancies and discrepancies were resolved. Home Medications Aspirin [Aspirin, Baby] 81 mg PO DAILY@0800 03/10/14 Multivitamin [Daily Multiple Vitamin] 1 each PO DAILY 02/19/17 Atorvastatin Calcium [Lipitor] 40 mg PO QHS #30 tablet 06/22/17 Carvedilol [Coreg] 12.5 mg PO BID #60 06/22/17 Insulin Aspart [Novolog Flexpen] 0 units SC TIDCM #1 06/22/17 Ipratropium/Albuterol Sulfate [Duoneb] 3 ml INHALATION Q4H PRN PRN #30 06/22/17 Pantoprazole Sodium [Protonix] 40 mg PO DAILY #30 06/22/17 Ipratropium/Albuterol Sulfate [Duoneb] 3 ml INHALATION Q4H PRN #180 ampul.neb 06/25/17 Amlodipine [Norvasc] 10 mg PO DAILY 09/26/20 Calcium Citrate 250 mg PO BID 09/26/20 Ferrous Sulfate 325 mg PO BID 09/26/20 Hydroxychloroquine Sulfate [Plaquenil] 200 mg PO DAILY 09/26/20 Tamsulosin HCl [Flomax] 0.8 mg PO QHS 09/26/20 hydrALAZINE [Apresoline] 50 mg PO TID 09/26/20 Isosorbide Mononitrate [Imdur] 30 mg PO DAILY 10/13/20 Acetaminophen [Tylenol Tablet] 650 mg PO Q6H PRN PRN tab 10/16/20 Cefdinir [Omnicef [equiv]] 300 mg PO Q12H #8 cap 10/16/20 Lisinopril [Zestril] 20 mg PO DAILY #0 10/16/20
--- NOTE | 2020-10-16 13:51 | PCM.DC.SUM ---
<Darryl Polk - Last Filed: 10/16/20 13:57> Discharge Date and Diagnosis Date of Admission: 06/01/17 Date of Discharge: 10/16/20 - Primary Discharge Diagnosis Acute Problems: RUL pna, community acquired LUCAS - Secondary Discharge Diagnosis Chronic Problems: Chronic Problems Bilateral lower extremity edema (Chronic) Toe pain, left (Chronic) Toe pain, right (Chronic) Finger pain, left (Chronic) Finger pain, right (Chronic) Tinea manus (Chronic) Tinea unguium (Chronic) Atrial fibrillation (Chronic) Diabetes mellitus (Chronic) Coronary artery disease (Chronic) BPH (benign prostatic hyperplasia) (Chronic) Pulmonary fibrosis (Chronic) COPD (chronic obstructive pulmonary disease) (Chronic) S/P CABG (coronary artery bypass graft) (Chronic) S/P PTCA (percutaneous transluminal coronary angioplasty) (Chronic) Aortic valve disease (Chronic) PVT (paroxysmal ventricular tachycardia) (Chronic) History of PSVT (paroxysmal supraventricular tachycardia) (Chronic) CAD (coronary artery disease) (Chronic) Diabetes mellitus, type II (Chronic) Hyperlipidemia (Chronic) History of atrial fibrillation (Chronic) Hypertension (Chronic) Rheumatoid arthritis (Chronic) BPH (benign prostatic hyperplasia) (Chronic) Hospital Course and Treatment Imaging Results: RAD/Chest 1 View (Portable) IMPRESSION: Moderate to severe right upper lobe pneumonia superimposed on chronic interstitial lung disease Operations: None Procedures: None Summary of Care Provided: Hospital course: The patient is a 80 year old M with pmhx as above who presented to the ER with c/o generalized weakness, SOB and productive cough. He was found to have Mod to severe RUL pna on CXR and LUCAS. Covid was negative. He was admitted for CAP. He was placed on rocephin and azithromycin. He initially required a small amount of supplemental oxygen, however this was weaned off. He had negative urine antigens and negative blood cultures. He was provided PT and OT, as he had generalized weakness. He will continue PTOT at home via [facility] services. He was transitioned to oral Abx to complete a total of 7 days of therapy. He has four more days of omnicef. He was discharged home in stable condition with [facility], follow up with PCP in 1-2 weeks This patient was seen by Darryl Polk PA-C under the supervision of Doctor Lee. [] - Physical Exam Vitals/I&O's: Vital Signs Temp Pulse Resp BP Pulse Ox 98 F 68 18 135/57 H 94 10/16/20 09:10 10/16/20 12:14 10/16/20 12:14 10/16/20 09:10 10/16/20 12:14 Oxygen Flow Rate (L/min) 2 Oxygen Delivery Method Room Air Weight: 193 lb 5.526 oz Body Mass Index (BMI) 31.1 Finger Stick Blood Glucose 128 Intake and Output for Last 24 Hours 10/14/20 10/15/20 10/16/20 23:59 23:59 23:59 Intake Total 2505.00 / 2505.00 1626.25 / 1626.25 120 / 120 Output Total 625 / 625 725 / 725 350 / 350 Balance 1880.00 / 1880.00 901.25 / 901.25 -230 / -230 General: Alert, Oriented x3, Cooperative HEENT: Atraumatic, PERRLA, EOMI, Normocephalic Neck: Supple, No JVD, Negative Carotid Bruits Lungs: Diminished, Rales - RML/RUL Cardiovascular: Regular rate, No murmurs Abdomen: Bowel Sounds Present, Soft, Non Tender Extremities: No edema, Capillary Refill Less than 3 Seconds Skin: No rashes, No breakdown Musculoskeletal: No Tenderness to Palpation of Joints or Extremities Neurological: Cranial nerves II-XII grossly intact Psych/Mental Status: Normal Affect, Appropriate Microbiology Past 72 Hours 10/13/20 16:20 Blood Culture (Wb) - Left Hand Blood Culture - Preliminary No growth in 48 hours. 10/13/20 17:24 Blood Culture (Wb) - No Site/Description Given Blood Culture - Preliminary No growth in 48 hours. 10/13/20 21:11 Urine, Clean Catch Legionella Antigen - Final 10/13/20 21:11 Urine, Clean Catch Streptococcus pneumoniae Antigen (M - Final Laboratory Results 10/16/20 06:55: WBC 7.6, RBC 3.00 L, Hgb 8.4 L, Hct 27.5 L, MCV 91.7, MCH 28.0, MCHC 30.5 L, RDW Std Deviation 43.7, RDW Coeff of Saloni 13.3, Plt Count 394, MPV 9.6, Immature Gran % (Auto) 0.800, Neut % (Auto) 69.8, Lymph % (Auto) 13.1 L, [place] % (Auto) 13.1 H, Eos % (Auto) 2.4, Baso % (Auto) 0.8, Absolute Neuts (auto) 5.3, Absolute Lymphs (auto) 0.99, Nucleated RBC % 0 10/16/20 06:55: Sodium 141, Potassium 4.1, Chloride 114 H, Carbon Dioxide 20.0 L, Anion Gap 7, BUN 22 H, Creatinine 1.63 H, Estim Creat Clear Calc 32.07, Est GFR (MDRD) Af Amer 52 L, Est GFR (MDRD) Non-Af 43 L, BUN/Creatinine Ratio 13.5, Glucose 101, Calcium 8.2 L Discharge Diet: Low fat/ Low Cholesterol, 2000 mg Sodium Diet Discharge Activity: Return to Normal Activity Home Medications: Medications to take at Discharge Aspirin [Aspirin, Baby] 81 mg PO DAILY@0800 03/10/14 Multivitamin [Daily Multiple Vitamin] 1 each PO DAILY 02/19/17 Atorvastatin Calcium [Lipitor] 40 mg PO QHS #30 tablet 06/22/17 Carvedilol [Coreg] 12.5 mg PO BID #60 06/22/17 Insulin Aspart [Novolog Flexpen] 0 units SC TIDCM #1 06/22/17 Ipratropium/Albuterol Sulfate [Duoneb] 3 ml INHALATION Q4H PRN PRN #30 06/22/17 Pantoprazole Sodium [Protonix] 40 mg PO DAILY #30 06/22/17 Ipratropium/Albuterol Sulfate [Duoneb] 3 ml INHALATION Q4H PRN #180 ampul.neb 06/25/17 Amlodipine [Norvasc] 10 mg PO DAILY 09/26/20 Calcium Citrate 250 mg PO BID 09/26/20 Ferrous Sulfate 325 mg PO BID 09/26/20 Hydroxychloroquine Sulfate [Plaquenil] 200 mg PO DAILY 09/26/20 Tamsulosin HCl [Flomax] 0.8 mg PO QHS 09/26/20 hydrALAZINE [Apresoline] 50 mg PO TID 09/26/20 Isosorbide Mononitrate [Imdur] 30 mg PO DAILY 10/13/20 Acetaminophen [Tylenol Tablet] 650 mg PO Q6H PRN PRN tab 10/16/20 Cefdinir [Omnicef [equiv]] 300 mg PO Q12H #8 cap 10/16/20 Lisinopril [Zestril] 20 mg PO DAILY #0 10/16/20 Following Prescriptions Were Given to Patient: Cefdinir [Omnicef [equiv]] 300 mg PO Q12H #8 cap Transmission Status: Received by [facility] Primary Care Physician: Samuel Avendaño MD [Primary Care Provider] - Please follow up with your Primary Care Physician in: 1-2 weeks Please Follow Up With: Samuel Avendaño MD Disposition: Home with Home Health Minutes spent on discharge:: 35 Patient Condition:: Stable Medical Necessity - Tobacco Use Smoking Status: Never smoker Meaningful Use Info Meaningful Use Diagnoses (Choose all that apply): None applicable <Zacarias Lee - Last Filed: 10/16/20 14:30> Discharge Date and Diagnosis - Secondary Discharge Diagnosis Chronic Problems: Chronic Problems Bilateral lower extremity edema (Chronic) Toe pain, left (Chronic) Toe pain, right (Chronic) Finger pain, left (Chronic) Finger pain, right (Chronic) Tinea manus (Chronic) Tinea unguium (Chronic) Atrial fibrillation (Chronic) Diabetes mellitus (Chronic) Coronary artery disease (Chronic) BPH (benign prostatic hyperplasia) (Chronic) Pulmonary fibrosis (Chronic) COPD (chronic obstructive pulmonary disease) (Chronic) S/P CABG (coronary artery bypass graft) (Chronic) S/P PTCA (percutaneous transluminal coronary angioplasty) (Chronic) Aortic valve disease (Chronic) PVT (paroxysmal ventricular tachycardia) (Chronic) History of PSVT (paroxysmal supraventricular tachycardia) (Chronic) CAD (coronary artery disease) (Chronic) Diabetes mellitus, type II (Chronic) Hyperlipidemia (Chronic) History of atrial fibrillation (Chronic) Hypertension (Chronic) Rheumatoid arthritis (Chronic) BPH (benign prostatic hyperplasia) (Chronic) Hospital Course and Treatment Summary of Care Provided: [] This patient was seen in conjunction with Darryl GOODMAN. I have independently interviewed and examined the patient and reviewed pertinent history, examination findings, laboratory and plan of management. I have reviewed the note and agree with the documented findings with the few additional points. In brief, patient is 80-year-old gentleman with multiple comorbidities is admitted with shortness of breath and acute hypoxic respiratory failure. Chest x-ray shows severe right upper lobe pneumonia superimposed on chronic interstitial lung disease. Chest x-ray shows left subclavicular pacemaker and bilateral nodular disease. Patient is non-smoker. On IV Rocephin and Zithromax. COVID-19 PCR negative. Urinary antigens are negative. Hold hydroxychloroquine as patient is on Zithromax. Patient encouraged to continue Mucinex, incentive spirometry and chest physiotherapy. Patient weaned off oxygen. Patient has history of coronary artery status post CABG, A. fib status post pacemaker. Patient follows outside [facility] staff officer Dr. Oconnor in [facility]. Last echo in 2013 shows EF 60% with mild . 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 LUCAS probably due to infection/ATN and lisinopril: BUN/creatinine was less than 20s to 1. Improving. Patient on lisinopril 20 mg twice daily, hydroxychloroquine at home. Not on diuretic. Nephrotoxic medications are on hold BUN/creatinine keep on improving, last 122/1.63. Patient advised to continue holding lisinopril for 1 more week. Advised BMP in 1 week with PCP to check resolution of LUCAS. Other comorbidities include chronic iron versus anemia, RA on Plaquenil, GERD and BPH I have discussed my assessment with Darryl GOODMAN and orders have been reviewed. Discharge medication reconciliation done. Discharge follow-up instructions completed. Discharge process discussed with the patient and all questions were answered to patient's satisfaction. Total time spent, exact 35 minutes on discharge meds reconciliation, examination, coordination of care with nurses and ancillary staff, review of imaging and blood test and discussion with the patient on follow-up instructions Objective: Patient heart rate and blood pressure is in normal range. Patient ambulating 92% on room air and at rest 95%. 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 Patient encouraged to keep Physical exam General: Alert, Oriented x3, Cooperative HEENT: Atraumatic, PERRLA, EOMI, Normocephalic Oral: No Gingival or Mucosal Lesions/ Ulcerations Neck: Supple, No JVD, Negative Carotid Bruits Lungs: Air entry diminished in bilateral lung bases. Mild bilateral occasional crypts. Cardiovascular: Paced rhythm on athletic monitor, status post CABG, normal S1, Normal S2, ejection systolic murmur over right second ICS and holosystolic murmur over cardiac apex. Abdomen: Bowel Sounds Present, Soft, Non Tender, Non-Distended : No renal angle tenderness. No suprapubic tenderness. Extremities: No edema, Capillary Refill Less than 3 Seconds Skin: No rashes, No breakdown Musculoskeletal: No Tenderness to Palpation of Joints or Extremities Neurological: Cranial nerves II-XII grossly intact, Deep Tendon Reflexes 2+/4 and Symmetrical, Neuro grossly intact Psych/Mental Status: Normal Affect, Appropriate. - Physical Exam Vitals/I&O's: Vital Signs Temp Pulse Resp BP Pulse Ox 98 F 68 18 135/57 H 94 10/16/20 09:10 10/16/20 12:14 10/16/20 12:14 10/16/20 09:10 10/16/20 12:14 Oxygen Flow Rate (L/min) 2 Oxygen Delivery Method Room Air Weight: 193 lb 5.526 oz Body Mass Index (BMI) 31.1 Finger Stick Blood Glucose 128 Intake and Output for Last 24 Hours 10/14/20 10/15/20 10/16/20 23:59 23:59 23:59 Intake Total 2505.00 / 2505.00 1626.25 / 1626.25 120 / 120 Output Total 625 / 625 725 / 725 350 / 350 Balance 1880.00 / 1880.00 901.25 / 901.25 -230 / -230 Microbiology Past 72 Hours 10/13/20 16:20 Blood Culture (Wb) - Left Hand Blood Culture - Preliminary No growth in 48 hours. 10/13/20 17:24 Blood Culture (Wb) - No Site/Description Given Blood Culture - Preliminary No growth in 48 hours. 10/13/20 21:11 Urine, Clean Catch Legionella Antigen - Final 10/13/20 21:11 Urine, Clean Catch Streptococcus pneumoniae Antigen (M - Final Laboratory Results 10/16/20 06:55: WBC 7.6, RBC 3.00 L, Hgb 8.4 L, Hct 27.5 L, MCV 91.7, MCH 28.0, MCHC 30.5 L, RDW Std Deviation 43.7, RDW Coeff of Saloni 13.3, Plt Count 394, MPV 9.6, Immature Gran % (Auto) 0.800, Neut % (Auto) 69.8, Lymph % (Auto) 13.1 L, [place] % (Auto) 13.1 H, Eos % (Auto) 2.4, Baso % (Auto) 0.8, Absolute Neuts (auto) 5.3, Absolute Lymphs (auto) 0.99, Nucleated RBC % 0 10/16/20 06:55: Sodium 141, Potassium 4.1, Chloride 114 H, Carbon Dioxide 20.0 L, Anion Gap 7, BUN 22 H, Creatinine 1.63 H, Estim Creat Clear Calc 32.07, Est GFR (MDRD) Af Amer 52 L, Est GFR (MDRD) Non-Af 43 L, BUN/Creatinine Ratio 13.5, Glucose 101, Calcium 8.2 L Inpatient E&M: 34169 Disch Hosp
--- NOTE | 2020-10-17 13:55 | CASEMGMT ---
Addendum entered by Con Parekr 10/17/20 16:31: 1415: Call placed to [facility] and spoke w/nurse Liliam. She states she was out to see pt today and that he was having some SOB and she is aware he applied oxygen using the concentrator from prior illness. She confirms that she has a call out to Dr Avendaño and is awaiting a return call. She states pt was reluctant to go to ER when she was with him. She was made aware this pt informed this RN CM that he would go to ER if Dr Avendaño recommends he do so. Original Note: JOSE CM Discharge Follow-Up Phone Call. Lace: 11 Strata: 3 Discharge Date: 10/17/20 Adm Dx: RUL pneumonia Call to pt to inquire about how he has been doing since being discharged from the hospital. Pt states he was able to get the new prescription yesterday and is aware of appt scheduled w/Dr Avendaño. Pt states he is not doing good at all. Pt states he has been feeling SOB and that his granddaughter just brought him the concentrator from her home that he got a couple years ago d/t his pulse ox was only 90% or below. Pt states he is currently using 2 L/M n/c. He also reports his legs have been weak and he is having difficulty walking,. JOSE CM inquired if [facility] nurse has been out to see him and if she is aware of above. Pt reports that the [facility] nurse was out to see him and is aware of the above. He states that she placed a call to Dr Avendaño's office and they are awaiting a return call. He states he feels he may need to go to ER, but wants to wait on what Dr Avendaño says after talking with [facility]. James SEBASTIAN RN CM
== END 2020-10-16 13:12 | disposition home health service (06) | DRG 194 ==
LOC: ED 19:22 → PCU 20:29
PROVIDERS: Physician Assistant; Admitting Provider Family Medicine; Emergency Provider Emergency Medicine; PCP Family Medicine; Visit Provider Internal Medicine
DX: J15.9 Unspecified bacterial pneumonia (principal); J44.0 Chronic obstructive pulmonary disease with (acute) lower respiratory infection; I13.0 Hypertensive heart and chronic kidney disease with heart failure and stage 1 through stage 4 chronic kidney disease, or unspecified chronic kidney disease; I50.32 Chronic diastolic (congestive) heart failure; N17.9 Acute kidney failure, unspecified; I48.20 Chronic atrial fibrillation, unspecified; I47.2 Ventricular tachycardia; E11.22 Type 2 diabetes mellitus with diabetic chronic kidney disease; N18.9 Chronic kidney disease, unspecified; J70.3 Chronic drug-induced interstitial lung disorders; T46.2X5A Adverse effect of other antidysrhythmic drugs, initial encounter; Y92.9 Unspecified place or not applicable; I25.10 Atherosclerotic heart disease of native coronary artery without angina pectoris; I35.9 Nonrheumatic aortic valve disorder, unspecified; D50.9 Iron deficiency anemia, unspecified; M06.9 Rheumatoid arthritis, unspecified; E78.5 Hyperlipidemia, unspecified; N40.0 Benign prostatic hyperplasia without lower urinary tract symptoms; K21.9 Gastro-esophageal reflux disease without esophagitis; Z79.82 Long term (current) use of aspirin; Z79.4 Long term (current) use of insulin; Z79.899 Other long term (current) drug therapy; Z95.0 Presence of cardiac pacemaker; Z95.1 Presence of aortocoronary bypass graft; Z95.5 Presence of coronary angioplasty implant and graft
CPT/HCPCS: 36415; 71045; 80048; 80053; 81001; 83605; 83735; 84484; 85025; 87040; 87449; 87635; 93005; 94667; 97110; 97116; 97162; 97166; 97535; 99285; J7030; A4216; U0002

== ENCOUNTER → 2020-10-23 12:33 | Outpatient (CLI) | payer MEDICARE, OTHER, SELFPAY ==
[2020-10-13 21:18] VITALS: BMI 31.1
[2020-10-23 15:46] LABS: Anion Gap 6 (5-15); BUN 15 mg/dL (7-18); BUN/Creat Ratio 10.3 RATIO (10-20); Calcium,Total 8.5 mg/dL (8.5-10.1); Chloride 109 mmol/L (98-107); Creatinine, Serum 1.45 mg/dL (0.70-1.30); EST Glomerular Filtration Rate 50 mL/min (>60); Est Glom Filt Rate - Afr Amer 60 mL/min (>60); Ferritin 242 ng/mL (26-388); Glucose 110 mg/dL (74-106); Iron 37 ug/dL (65-175); Potassium 4.1 mmol/L (3.5-5.1); Sodium Level 140 mmol/L (136-145); Thyroid Stim Hormone (TSH) 2.41 uIU/mL (0.358-3.74)
[2020-10-23 16:59] LABS: Erythrocyte Sedimentation Rate 57 mm/hr (0-20)
[2020-10-23 17:09] LABS: Hematocrit 30.8 % (40-54); Hemoglobin 9.3 g/dL (13.0-16.5); Mean Corp Hgb Conc 30.2 g/dL (32-36); Mean Corpuscular Hgb 27.9 pg (27.0-32.0); Mean Corpuscular Volume 92.5 fL (80-94); Mean Platelet Vol. 10.6 fl (6.2-12.0); Platelet Count 369 K/mm3 (150-450); RBC Distribution Width CV 14.1 % (11.6-14.6); RBC Distribution Width SD 46.3 fl (35.1-43.9); RET-HE 33.6 pg (30-35); Red Blood Count 3.33 M/mm3 (4.6-6.2); Reticulocyte Count 2.33 % (0.5-1.5); White Blood Count 7.3 K/mm3 (4.4-11.0)
== END ==
PROVIDERS: PCP Family Medicine; Referring Provider Family Medicine; Visit Provider Family Medicine
DX: N28.9 Disorder of kidney and ureter, unspecified (principal); D64.9 Anemia, unspecified; R29.898 Other symptoms and signs involving the musculoskeletal system
CPT/HCPCS: 36415; 80048; 82728; 83540; 84443; 85027; 85045; 85652

== ENCOUNTER → 2020-12-31 17:28 | Outpatient (CLI) | payer MEDICARE, OTHER, SELFPAY ==
[2020-10-13 21:18] VITALS: BMI 31.1
--- NOTE | 2020-12-31 17:38 | RAD_ITS ---
STUDY: X-RAY - ACUTE ABDOMINAL SERIES REASON FOR EXAM: Male, 80 years old. Her right side abdominal pain beginning today. TECHNIQUE: Single view of the chest. Supine, and erect view(s) of the abdomen were obtained. COMPARISON: Chest, 10/04/20192019. FINDINGS: The lungs are clear and expanded. There is borderline cardiomegaly. The heart is normal in size. Stable cardiac pacemaker. Normal mediastinum and ceferino. Normal visualized pulmonary arteries. There is atherosclerotic calcification of the aortic arch with tortuosity. There is a non-specific bowel gas pattern. There is air in nondilated small bowel loops in the left upper quadrant. There is no colonic dilatation. There is no free air. The soft tissue structures of the abdomen and pelvis are unremarkable. There is evidence of a posterior fusion of the lower lumbar spine. There are degenerative changes of bilateral hips. RAD/Acute Abdomen Inc Chest IMPRESSION: 1. No evidence of acute pulmonary disease. There is resolution of the infiltrate seen on the previous examination. 2. Stable cardiac pacemaker. 3. Nonspecific bowel gas pattern without obvious obstruction. Electronically Signed: Dennis Krause DO at 23:21 EST Tel [phone], Service support ,
[2020-12-31 18:01] LABS: Absolute Lymphocyte Count 1.16 X10^3/uL (0.83-4.51); Absolute Neutrophil Count 7.4 X10^3/uL (2.0-7.7); Basophil# 0.07 X10^3/uL; Basophil% 0.7 % (0-1); Eosinophil# 0.02 X10^3/uL; Eosinophils% 0.2 % (0-5); Hematocrit 31.2 % (40-54); Hemoglobin 9.7 g/dL (13.0-16.5); Lymphocyte # 1.16 X10^3/ul (4.0); Mean Corp Hgb Conc 31.1 g/dL (32-36); Mean Corpuscular Hgb 27.2 pg (27.0-32.0); Mean Corpuscular Volume 87.4 fL (80-94); Mean Platelet Vol. 10.4 fl (6.2-12.0); Monocyte% 10.3 % (0-10); NRBC Flagged by Analyzer 0 % (0-5); Neutrophil % 76.3 % (47-70); Platelet Count 321 K/mm3 (150-450); RBC Distribution Width CV 13.7 % (11.6-14.6); RBC Distribution Width SD 44.1 fl (35.1-43.9); Red Blood Count 3.57 M/mm3 (4.6-6.2); White Blood Count 9.7 K/mm3 (4.4-11.0)
[2020-12-31 18:13] LABS: Erythrocyte Sedimentation Rate 76 mm/hr (0-20)
[2020-12-31 18:51] LABS: ALB/GLOB Ratio 0.7 RATIO (0.9-2.4); AST(SGOT) 179 U/L (15-37); Alanine Aminotransfer ALT/SGPT 91 U/L (16-61); Albumin, Serum 3.1 g/dL (3.2-5.0); Alkaline Phosphatase 77 U/L (45-117); Anion Gap 7 (5-15); BUN 21 mg/dL (7-18); BUN/Creat Ratio 11.4 RATIO (10-20); Calcium,Total 8.5 mg/dL (8.5-10.1); Chloride 110 mmol/L (98-107); Creatinine, Serum 1.84 mg/dL (0.70-1.30); EST Glomerular Filtration Rate 38 mL/min (>60); Est Glom Filt Rate - Afr Amer 46 mL/min (>60); Globulin 4.4 g/dL (2.2-4.2); Glucose 158 mg/dL (74-106); Potassium 4.4 mmol/L (3.5-5.1); Protein, Total 7.5 g/dL (6.4-8.2); Sodium Level 139 mmol/L (136-145)
== END ==
PROVIDERS: PCP Family Medicine; Referring Provider Family Medicine; Visit Provider Family Medicine
DX: R10.9 Unspecified abdominal pain (principal)
CPT/HCPCS: 36415; 74022; 80053; 85025; 85652

== ENCOUNTER → 2021-01-02 08:16 | Outpatient (CLI) | payer MEDICARE, OTHER, SELFPAY ==
[2020-10-13 21:18] VITALS: BMI 31.1
--- NOTE | 2021-01-02 08:21 | US_ITS ---
STUDY: ABDOMINAL ULTRASOUND - RIGHT UPPER QUADRANT REASON FOR VISIT: Male, 80 years old gallbladder disease TECHNIQUE: Ultrasound evaluation of the right upper quadrant was performed with real-time and static [place]-scale imaging. TECHNICAL QUALITY: Adequate. COMPARISON: None. FINDINGS: Liver: The liver measures 15.1 cm. There is normal echogenicity of the liver. The bile ducts are within normal limits. There is hepatic color flow. The direction of portal flow is hepatopetal. There is no demonstrated mass lesion. Gallbladder: Normal distended gallbladder. The gallbladder wall is thickened and measures 5.7 mm. There is a positive sonographic Contreras''s sign. There is no pericholecystic fluid. There are multiple echogenic structures within the gallbladder, consistent with multiple gallstones. Common Bile Duct (C.B.D.): The common bile duct measures 5.0 mm. Pancreas: There is nonvisualization of the pancreas due to overlying bowel gas. Right Kidney: Normal size of the right kidney. The right kidney measures 13.2 cm x 4.8 cm x 6.2 cm. Normal renal cortex. The right cortex measures 2.0 cm. There is no demonstrated renal mass or cyst. There is no right hydronephrosis. US/Gallbladder IMPRESSION: Multiple gallstones. Thickened gallbladder wall. Electronically Signed: Gavin Salazar MD at 9:39 EST , Service support ,
== END ==
PROVIDERS: PCP Family Medicine; Referring Provider Family Medicine; Visit Provider Family Medicine
DX: K82.9 Disease of gallbladder, unspecified (principal)
CPT/HCPCS: 76705

== ENCOUNTER 2021-01-15 07:32 | Day surgery (SDC) | payer MEDICARE, OTHER, SELFPAY ==
[2021-01-07 12:58] VITALS: BMI 31.0
--- NOTE | 2021-01-13 12:08 | EKG12_ITS ---
Test Reason : PRE SURGERY Blood Pressure : / mmHG Vent. Rate : 074 BPM Atrial Rate : 074 BPM P-R Int : 000 ms QRS Dur : 168 ms QT Int : 510 ms P-R-T Axes : 000 234 089 degrees QTc Int : 566 ms AV Paced with PVC's Non-specific intra-ventricular conduction block Abnormal ECG Confirmed by JESSICA WEBB, MANA ([id number]), metropolitan editor CHIQUITA HEWITT ([id number]) on 01/14/2021 10:31:00 AM Referred By: Jalil Crowder Confirmed By:MANA LOPEZ MD
[2021-01-13 13:44] LABS: Hematocrit 29.6 % (40-54); Hemoglobin 9.5 g/dL (13.0-16.5); Mean Corp Hgb Conc 32.1 g/dL (32-36); Mean Corpuscular Volume 90.2 fL (80-94); Mean Platelet Vol. 10.6 fl (6.2-12.0); Platelet Count 279 K/mm3 (150-450); RBC Distribution Width SD 50.4 fl (35.1-43.9); Red Blood Count 3.28 M/mm3 (4.6-6.2); White Blood Count 11.1 K/mm3 (4.4-11.0)
[2021-01-13 13:57] LABS: International Normalized Ratio 1.2; Partial Thromboplast Time 26.4 Seconds (24.1-36.2); Prothrombin Time (Protime)PT. 14.3 SECONDS (11.7-14.9)
[2021-01-13 14:06] LABS: Hemoglobin A1c 6.6 % (3.8-5.6)
[2021-01-15] VITALS (13 sets, daily range): BP systolic 102–151; BP diastolic 56–73; PULSE 60–74; RESP 16–60; TEMP 36.1–37.3; O2SAT 16–99; BMI 31.4
--- NOTE | 2021-01-15 07:00 | HP_ITS ---
Intake Vital Signs 01/07/21 Height 5 ft 6 in 01/07/21 Weight: 192 lb 4 oz 01/07/21 BMI 31.0 01/07/21 BP 134/63 H 01/07/21 Blood Pressure Location Lt brachial 01/07/21 Position Sitting 01/07/21 Respiration 20 H 01/07/21 Pulse 60 01/07/21 Pulse Source NIBP 01/07/21 Pulse Oximetry (%) 96 01/07/21 Oxygen Delivery Method room air Intake Visit Reasons: ABDOMINAL PAIN, GALLBLADDER Chief Complaint: gallstones Testing Projects Administrator Required: No Is patient in pain?: No Allergies amiodarone Allergy (Mild, Verified 01/07/21 12:48) PT UNSURE OF REACTION simvastatin Allergy (Mild, Verified 01/07/21 12:48) Other Penicillins Allergy (Verified 10/13/20 16:20) Rash Medications Aspirin [Aspirin, Baby] 81 mg PO DAILY@0800 03/10/14 [History Confirmed 01/07/21] Multivitamin [Daily Multiple Vitamin] 1 ea PO DAILY 02/19/17 [History Confirmed 01/07/21] Atorvastatin Calcium [Lipitor] 40 mg PO QHS #30 tab 06/22/17 [Rx Confirmed 01/07/21] Carvedilol [Coreg] 12.5 mg PO BID #60 06/22/17 [Rx Confirmed 01/07/21] Insulin Aspart [Novolog Flexpen] 0 units SC TIDCM #1 06/22/17 [Rx Confirmed 01/07/21] Pantoprazole Sodium [Protonix] 40 mg PO DAILY #30 06/22/17 [Rx Confirmed 01/07/21] Ipratropium/Albuterol Sulfate [Duoneb] 3 ml INHALATION Q4H PRN #180 ampul.neb 06/25/17 [Rx Confirmed 01/07/21] Amlodipine [Norvasc] 10 mg PO DAILY 09/26/20 [History Confirmed 01/07/21] Calcium Citrate 250 mg PO BID 09/26/20 [History Confirmed 01/07/21] Ferrous Sulfate 325 mg PO BID 09/26/20 [History Confirmed 01/07/21] Hydroxychloroquine Sulfate [Plaquenil] 200 mg PO DAILY 09/26/20 [History Confirmed 01/07/21] Tamsulosin HCl [Flomax] 0.8 mg PO QHS 09/26/20 [History Confirmed 01/07/21] hydrALAZINE [Apresoline] 50 mg PO TID 09/26/20 [History Confirmed 01/07/21] Isosorbide Mononitrate [Imdur] 30 mg PO DAILY 10/13/20 [History Confirmed 01/07/21] Acetaminophen [Tylenol Tablet] 650 mg PO Q6H PRN PRN tab 10/16/20 [Rx Confirmed 01/07/21] Lisinopril [Zestril] 20 mg PO DAILY #0 10/16/20 [Rx Confirmed 01/07/21] furosemide 20 mg tablet 20 mg PO DAILY 01/07/21 [History Confirmed 01/07/21] hydroxyzine HCl 25 mg tablet 25 mg PO QHS 01/07/21 [History Confirmed 01/07/21] mirtazapine 15 mg tablet 15 mg PO QHS 01/07/21 [History Confirmed 01/07/21] potassium chloride 20 mEq tablet,extended release 20 meq PO DAILY 01/07/21 [History Confirmed 01/07/21] tramadol 50 mg tablet 50 mg PO BID PRN 01/07/21 [History Confirmed 01/07/21] PFSH Medical History Bilateral lower extremity edema (Chronic) Toe pain, left (Chronic) Toe pain, right (Chronic) Finger pain, left (Chronic) Finger pain, right (Chronic) Tinea manus (Chronic) Tinea unguium (Chronic) Atrial fibrillation (Chronic) Diabetes mellitus (Chronic) Coronary artery disease (Chronic) BPH (benign prostatic hyperplasia) (Chronic) Pneumonia (Acute) Congestive heart failure (Acute) Amiodarone pulmonary toxicity (Acute) Pulmonary fibrosis (Chronic) COPD (chronic obstructive pulmonary disease) (Chronic) LUCAS (acute kidney injury) (Acute) Heart failure with reduced ejection fraction (Acute) Acute respiratory failure (Acute) Shortness of breath (Acute) Lower leg edema (Acute) CHF, acute (Acute) Aortic valve disease (Chronic) PVT (paroxysmal ventricular tachycardia) (Chronic) History of PSVT (paroxysmal supraventricular tachycardia) (Chronic) CAD (coronary artery disease) (Chronic) Diabetes mellitus, type II (Chronic) Hyperlipidemia (Chronic) History of atrial fibrillation (Chronic) Hypertension (Chronic) Rheumatoid arthritis (Chronic) BPH (benign prostatic hyperplasia) (Chronic) Surgical History S/P CABG (coronary artery bypass graft) (Chronic) S/P PTCA (percutaneous transluminal coronary angioplasty) (Chronic) S/P lumbar fusion (Acute) Family History (Updated 01/07/21 @ 12:58 by Vika Garcia) Other CAD (coronary artery disease) Hypertension Seizures Social History (Updated 01/07/21 @ 13:[address] Jalil Crowder MD) Smoking Status: Never smoker HPI HPI HPI: JUVENTINO CERNA, is a 80 M who presents to the office today for HPI HPI Surgical H&P: Yes HPI: JUVENTINO CERNA, is a 80 M who presents to the office today for History of right upper quadrant pain. The patient reports that about 5 days ago he had right upper quadrant pain and he had an ultrasound at that time which showed a thickened gallbladder wall. Since that time he has not had any pain or nausea or vomiting. He has been tolerating a diet. ROS General General: No weight change, appetite, fatigue, colon cancer, breast cancer or weakness HEENT HEENT: No difficulty swallowing, eye injury, eye surgery, swollen glands or hoarseness Endo Endocrine: No thyroid disease, diabetes mellitus, thyroid cancer, Hair loss, heat intolerance or cold intolerance Musc Musculoskeletal: Yes back problems, arthritis, rheumatoid arthritis and gout; no joint pain Cardio Cardiovascular: Yes pacemaker, heart disease, atrial fibrillation, high blood pressure and heart stent; no murmur, heart attack, palpitations, shortness of breat with exertion or chest pain Psych Psychiatric: No depression, anxiety or hearing voices Resp Respiratory: Yes shortness of breath, No sleep apnea, No cough, No COPD, No asthma, No emphysema, No wheezing Gastro Gastrointestinal: Yes abdominal pain, Yes nausea or vomiting, No diarrhea, No constipation, No blood in stool, No acid reflux, No hemorrhoids, No ulcers, Yes gallbladder problem, No black,tarry stools Logan Hematologic: No blood thinners, No blood disorders, No bleeding, No anemia, No blood clots Neuro Neurologic: No weakness Exam Const General: cooperative Orientation: alert, oriented x3 Resp Effort & Inspection: normal respiratory effort Auscultation: clear to auscultation bilaterally Cardio Rate: regular rate Rhythm: regular rhythm Heart Sounds: no murmurs GI Inspection: non-distended Palpation: soft, nontender Assessment & Plan Problems 1. Cholecystitis K81.9 Plan The patient had right upper quadrant pain and at that time had an ultrasound which showed thickened gallbladder wall as well as cholelithiasis. The patient likely had acute cholecystitis. The patient is currently asymptomatic I recommended laparoscopic cholecystectomy as this is likely to happen again. I discussed the procedure in detail with the patient. I discussed the risks, benefits, and alternatives of the procedure. I discussed the risks including but not limited to bleeding, infection, injury to surrounding organs such as the liver, bile duct, bowels. I did discuss the possibility of having to convert to an open procedure as well as the possibility that if any injuries occurred this may necessitate further surgery at a tertiary care center. We discussed the current risks associated with COVID-19. While it is understood that there is a community spread of COVID-19, the risk of sancho COVID-19 while at [facility] ([facility]) is very low; however, the risk cannot be completely mitigated because of the community spread of the disease. We discussed in detail the risk of exposure to and/or potential harm posed by the COVID-19 virus with having a surgery/procedure at this time versus the risk of delaying the surgery/procedure. It is not possible to know either the risk of delaying the surgery or procedure or chance of getting an infection with perfect accuracy, but a joint decision was made to proceed at this time with the scheduled surgery/procedure as indicated on the consent form. Patient was notified that we will need to comply with any screening or testing [facility] wishes to perform or that surgery may be delayed for any positive results. Jalil Crowder MD Pager: [facility] [address] [place] [address], [address] [place] [address] Office: Coding Level of Care Code Off vis,new,level 3 Diagnoses Cholecystitis K81.9 I have re-examined the patient. There are no clinical changes since date of exam.
[2021-01-15] MEDS: Lactated Ringers 1,000 ML 100 ML IV ×2 (07:59→12:01)
[2021-01-15] MEDS: Nitroglycerin Oint 1 INCH PACKET TD (08:26)
--- NOTE | 2021-01-15 08:26 | EKG12_ITS ---
Test Reason : Blood Pressure : / mmHG Vent. Rate : 062 BPM Atrial Rate : 036 BPM P-R Int : 206 ms QRS Dur : 224 ms QT Int : 558 ms P-R-T Axes : 096 -75 095 degrees QTc Int : 566 ms AV dual-paced rhythm with occasional Premature ventricular complexes Abnormal ECG Confirmed by SHAINA WEBB, LOLI ([id number]), avid editor CHIQUITA HEWITT ([id number]) on 01/20/2021 2:56:04 PM Referred By: Jalil Crowder Confirmed By:LOLI MERRITT MD
--- NOTE | 2021-01-15 09:10 | GALL_PTH ---
PATIENT: JUVENTINO [place]NA [place] [facility] [id number] AGE/SX: 80/M ROOM: RE01/15/[address]: Dr. Jalil Crowder MD : 1940 BED: DIS: 01/15/2021 SPEC #: [id number] RECD: 01/15/21 11:33 STATUS: MIKE KAUFMAN #: [id number] AILYN: 01/15/21 09:[address]: Jalil Crowder DEPT: SURGICAL PATHOLOGY RECD BY: Judith Blackmon ENTERED: 01/15/21 13:24 SP TYPE: ARVIND TUBBS DR: Dr. Sohail Avendaño MD Tissues: Gallbladder, NOS Procedures: Surgery Specimen Level III HEADER OPERATION: Laparoscopic cholecystectomy with IOC PRE-OP DIAGNOSIS: History acute cholecystitis TISSUE SUBMITTED: Gallbladder and contents MICROSCOPIC DIAGNOSIS Gallbladder and contents, cholecystectomy: Chronic cholecystitis. No stones are identified in the container or in the gallbladder. SJ:benito 01/16/2021 MICROSCOPIC DESCRIPTION Slides are reviewed. GROSS DESCRIPTION Received is one container labeled with the patient's name and designated gallbladder and contents. The specimen consists of a gallbladder measuring 8.5 cm in length and up to 3.5 cm in diameter. The external surface is pink-collier, smooth and glistening for the most part. Focally it is granular, hemorrhagic and contains cautery artifact. The gallbladder contains green-yellow mucoid bile. No stones are identified in the container or in the gallbladder. The mucosa is bile-stained and without any mass lesions. The gallbladder wall measures up to 0.2 cm in thickness. Tunnel Man sections from the gallbladder and the cystic duct are submitted in one cassette. / LUIS:benito 01/15/21 TC:3 CPT: 73959
[2021-01-15 09:21] LABS: Bedside Glucose 142 mg/dL (70-110)
--- NOTE | 2021-01-15 09:21 | RAD_ITS ---
STUDY: INTRAOPERATIVE CHOLANGIOGRAM. REASON FOR EXAM: Male, 80 years old. PAIN FLUOROSCOPY TIME (if supplied): ( 22.2 seconds ) minutes/seconds. A cine loop of 143 images was submitted. TECHNIQUE: An intraoperative cholangiogram was performed by the surgeon. Imaging was submitted. COMPARISON: None. FINDINGS: The common bile duct is opacified. No intraluminal filling defect is seen. There is free flow of contrast into the duodenum. There is retrograde filling of the pancreatic duct. RAD/Cholangiogram/ O R,Initial IMPRESSION: Unremarkable intraoperative cholangiogram. Electronically Signed: Gavin Salazar MD at 15:26 EST , Service support ,
[2021-01-15] MEDS: Bupiv/Epi 0.25% 30 ML Vial (09:49)
[2021-01-15 10:35] LABS: Bedside Glucose 161 mg/dL (70-110)
--- NOTE | 2021-01-15 10:35 | PCM.OPRPT ---
Problem List (1) History of acute cholecystitis Status: Acute Report of Operation Date of Procedure: 01/15/21 Pre-Operative Diagnosis: History of acute cholecystitis Post-Operative Diagnosis: Same Surgery/Procedure Performed:: Laparoscopic cholecystectomy with cholangiogram Specimen's removed: Gallbladder and contents Description of Procedure: After obtaining informed consent patient was brought back to the operating room. General anesthesia was induced. The abdomen was prepped and draped in usual sterile fashion. A small midline incision was made superior to the umbilicus and deepened to the level of fascia. The fascia was elevated and incised. Next the peritoneum was elevated and incised in the same fashion. Finger sweep was performed and the Flores trocar was placed into the abdomen. The balloon was inflated. The abdomen was inflated to 15 mmHg. Next a camera was introduced into the abdomen and the abdomen was inspected. Next under direct visualization three 5-mm ports were placed one subxiphoid and 2 subcostal. Next the gallbladder was elevated and retracted toward the right shoulder. The peritoneum was stripped from the gallbladder. The infundibulum was located and retracted laterally. Next the triangle of Calot was dissected and the cystic duct and cystic artery were identified. Cholangiograms were performed. The Maria clamp was used to clamp across the infundibulum and the catheter needle was inserted into the gallbladder. Under fluoroscopy contrast was instilled into the gallbladder and the common duct, cystic duct as well as proximal hepatic ducts were identified. There was good filling of the duodenum. There were no filling defects noted in the common bile duct. The clamp was removed as well as the needle and the infundibulum was grasped once more. Three hemolock clips were placed across the cystic duct. The cystic duct was then divided leaving 2 clips on the stump. The cystic artery was clipped and divided in the same fashion. The hook cautery was then used to take the gallbladder off of the gallbladder bed. Hemostasis was obtained. Gallbladder fossa was irrigated and no active bleeding or bile leakage was noted. Next the camera was introduced in the subxiphoid port. An Endopouch bag was placed through the umbilical port and the gallbladder was placed into it. The gallbladder was then removed through the umbilical incision. The camera was then reinserted through the umbilical port. The gallbladder fossa was inspected once more and noted to be hemostatic with no leaking bile. The abdomen was suctioned dry. The 5 mm ports were removed under direct visualization. The umbilical port was then removed and the air was removed from the abdomen. Next using an 0 Vicryl suture the umbilical fascia was closed in a [id number] fashion. The umbilical port site was irrigated local anesthetic was administered to all the incisions. All the incisions were closed with interrupted subcuticular 4-0 Monocryl sutures followed by Steri-Strips and dressings. The patient was awoken and taken to PACU in stable condition. - Admit VTE Documentation VTE Mechan Device Prophylaxis: SCD's
--- NOTE | 2021-01-15 10:37 | PCM.DC.GB ---
Discharge Diet: Light diet - advance as tolerated Discharge Activity: Return to Normal Activity, May Not Drive - for 2-3 days or while taking narcotic pain medicataions., - - Do not drive, work heavy equipment or sign legal documents for 24 hours. May shower in (days): 1 - with the bandage in place. Lifting Restrictions: 20 lbs for 2 weeks Additional Activity Instructions:: Pain medication may cause nausea. You should typically eat light foods as you take your pain medications. Pain medication may also cause constipation. If this is a problem for you, please discuss with your doctor. Call your doctor if your incision/area has: Continuous Slow Oozing, Sudden Increased Bleeding, Increased Pain/ Swelling, Increased Redness, Foul Smelling Discharge, Fever of 101 or Higher Call your doctor if you observe: Fever of 101 or Higher Suture Line Care: Avoid Pulling/Pushing, Avoid Pinching/Bending Additional Dressing/Incision Instructions:: Leave operative bandaids on for 2 days. When you remove dressing, leave Steri-Strips on until your follow-up appointment, or until the Steri-Strips fall off on their own. Allergies/Adverse Reactions: Allergies amiodarone Allergy (Mild, Verified 01/15/21 07:37) PT UNSURE OF REACTION simvastatin Allergy (Mild, Verified 01/15/21 07:37) Other hydralazine Allergy (Verified 01/15/21 07:37) PT UNSURE OF REACTION Penicillins Allergy (Verified 01/15/21 07:37) Rash rosuvastatin [From Crestor] Allergy (Verified 01/15/21 07:37) PT UNSURE OF REACTION Medications to take at Discharge Aspirin [Aspirin, Baby] 81 mg PO DAILY@0800 03/10/14 Atorvastatin Calcium [Lipitor] 40 mg PO QHS #30 tab 06/22/17 Carvedilol [Coreg] 12.5 mg PO BID #60 06/22/17 Pantoprazole Sodium [Protonix] 40 mg PO DAILY #30 06/22/17 Amlodipine [Norvasc] 10 mg PO DAILY 09/26/20 Ferrous Sulfate 325 mg PO DAILY 09/26/20 Hydroxychloroquine Sulfate [Plaquenil] 200 mg PO DAILY 09/26/20 Tamsulosin HCl [Flomax] 0.4 mg PO DAILY 09/26/20 Isosorbide Mononitrate [Imdur] 30 mg PO DAILY 10/13/20 Acetaminophen [Tylenol Tablet] 650 mg PO Q6H PRN PRN tab 10/16/20 furosemide 20 mg tablet 20 mg PO DAILY 01/07/21 hydroxyzine HCl 25 mg tablet 25 mg PO QHS 01/07/21 mirtazapine 15 mg tablet 15 mg PO QHS 01/07/21 potassium chloride 20 mEq tablet,extended release 20 meq PO DAILY 01/07/21 tramadol 50 mg tablet 50 mg PO BID PRN 01/07/21 Lisinopril [Zestril] 20 mg PO BID 01/10/21 Prednisone 10 mg PO DAILY 01/10/21 Finasteride 5 mg PO DAILY 01/14/21 hydrALAZINE [Apresoline] 50 mg PO TID 01/14/21 Oxycodone HCl/Acetaminophen [Percocet 5-325 mg Tablet] 1 - 2 tab PO Q6H PRN PRN 5 Days #30 tablet 01/15/21 The following prescriptions were given: Oxycodone HCl/Acetaminophen [Percocet 5-325 mg Tablet] 1 - 2 tab PO Q6H PRN PRN 5 Days #30 tablet PRN Reason: Pain Score 4-10/10 Transmission Status: Sent to [facility] Primary Care Physician: Samuel Avendaño MD [Primary Care Provider] - Test Results: Test results from this visit will be discussed in further detail at your follow-up appointment, if applicable. Please Follow Up With: Jalil Crowder MD When: Please call to schedule 2 week follow up appointment. [phone]
[2021-01-15] MEDS: Acetaminophen 325 MG Tablet PO ×2 (12:01→13:43)
[2021-01-15] MEDS: oxyCODONE 5 MG Tablet PO ×2 (12:01→13:43)
[2021-01-15] MEDS: Tamsulosin HCl 0.4 MG Capsule 0.8 MG PO (17:11)
== END 2021-01-15 17:36 | disposition home or self-care (01) ==
LOC: SDC 07:33 → AC 07:33
PROVIDERS: Anesthesiology; PCP Family Medicine; Referring Provider Surgery; Visit Provider Surgery
PROC: (CPT 47610; principal; 2021-01-15 08:50)
DX: K81.1 Chronic cholecystitis (principal); Z20.822 Contact with and (suspected) exposure to COVID-19; Z20.828 Contact with and (suspected) exposure to other viral communicable diseases; J84.112 Idiopathic pulmonary fibrosis; I48.20 Chronic atrial fibrillation, unspecified; N18.30 Chronic kidney disease, stage 3 unspecified; I25.10 Atherosclerotic heart disease of native coronary artery without angina pectoris; E11.9 Type 2 diabetes mellitus without complications; J44.9 Chronic obstructive pulmonary disease, unspecified; E78.5 Hyperlipidemia, unspecified; M06.9 Rheumatoid arthritis, unspecified; M79.7 Fibromyalgia; N40.0 Benign prostatic hyperplasia without lower urinary tract symptoms; Z79.4 Long term (current) use of insulin; Z79.82 Long term (current) use of aspirin; Z79.899 Other long term (current) drug therapy; Z87.19 Personal history of other diseases of the digestive system; Z95.0 Presence of cardiac pacemaker; Z95.1 Presence of aortocoronary bypass graft
CPT/HCPCS: 00790; 47563; 36415; 74300; 76000; 82962; 83036; 84484; 85027; 85610; 85730; 87426; 88304; 93005; C9803; J7120; J2405

== ENCOUNTER → 2021-02-10 09:39 | Outpatient (CLI) | payer MEDICARE, OTHER, SELFPAY ==
[2021-01-15 08:00] VITALS: BMI 31.4
--- NOTE | 2021-02-10 10:20 | RAD_ITS ---
STUDY: X-RAY CHEST REASON FOR EXAM: Male, 80 years old. RHEUMATOID ARTHRITIS TECHNIQUE: PA and lateral views of the chest. COMPARISON: Comparison is made with prior examination dated 12/31/2020. FINDINGS: Stable increased interstitial markings at the lung bases suggestive of scarring. Mild linear scarring in the right upper lobe. There is no demonstrated pleural abnormality. Sternal cerclage wires and vascular clips are present from a prior sternotomy and coronary artery bypass graft procedure (CABG). A left-sided dual-chamber pacemaker is seen. Mild cardiomegaly. Normal mediastinum and ceferino. Normal visualized pulmonary arteries. Normal visualized aortic arch and descending thoracic aorta. There is demineralization of the osseous structures. Normal visualized ribs, clavicles, and shoulders. There is no demonstrated abnormality of the visualized soft tissue structures of the upper abdomen. RAD/Chest PA and Lateral IMPRESSION: Stable increased interstitial markings more prominent at the lung bases suggestive of bibasilar scarring. Electronically Signed: Gavin Salazar MD at 10:50 EDT , Service support ,
--- NOTE | 2021-02-10 10:23 | RAD_ITS ---
STUDY: X-RAY - LEFT SHOULDER REASON FOR EXAM: Male, 80 years old. RHEUMATOID ARTHRITIS TECHNIQUE: 4 view(s) of the shoulder. COMPARISON: None. FINDINGS: There is mild degenerative arthrosis of the glenohumeral articulation. There is hypertrophic osteoarthrosis of the acromioclavicular joint with inferior osseous spur formation. Normal acromion. Decreased distance between the humeral head and acromion suggestive of rotator cuff pathology. The soft tissue structures are unremarkable. Normal visualized pulmonary apex. 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 Decreased distance between the humeral head and acromion suggestive of a rotator cuff pathology. Electronically Signed: Gavin Salazar MD at 10:53 EDT , Service support ,
--- NOTE | 2021-02-10 10:26 | RAD_ITS ---
STUDY: X-RAY - RIGHT SHOULDER REASON FOR EXAM: Male, 80 years old. RHEUMATOID ARTHRITIS TECHNIQUE: 4 view(s) of the shoulder. COMPARISON: None. FINDINGS: There is mild degenerative arthrosis of the glenohumeral articulation. There is hypertrophic osteoarthrosis of the acromioclavicular joint with inferior osseous spur formation. Normal acromion. Decrease space between the humeral head and the acromion suggestive of rotator cuff disease. Normal humeral head and visualized proximal humerus. The soft tissue structures are unremarkable. Normal visualized pulmonary apex. RAD/Shoulder min 2 Views IMPRESSION: Degenerative changes of the glenohumeral joint as well as the acromioclavicular joint. Narrowing of the space between the humeral head and acromion suggesting rotator cuff pathology. Electronically Signed: Gavin Salazar MD at 10:52 EDT , Service support ,
--- NOTE | 2021-02-10 10:28 | RAD_ITS ---
STUDY: X-RAY - PELVIS REASON FOR EXAM: Male, 80 years old. RHEUMATOID ARTHRITIS TECHNIQUE: One view of the pelvis was obtained. COMPARISON: None. FINDINGS: There is a non-specific bowel gas pattern. Normal visualized soft tissue structures. There is narrowing with cortical sclerosis and osteophyte formation of the sacroiliac joint consistent with degenerative osteoarthritic changes. Normal visualized bilateral superior and inferior pubic rami. Normal pubic symphysis. Normal ischial tuberosities. Normal visualized right femoral head. Normal right acetabulum. There is moderate articular joint space narrowing of the right hip. Normal visualized left femoral head. Normal left acetabulum. There is severe articular joint space narrowing of the left hip. Prior laminectomy and fusion at the L4-L5 and L5-S1 levels with intertransverse body bone grafting. 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 Electronically Signed: Gavin Salazar MD at 10:51 EDT , Service support ,
[2021-02-10 10:34] LABS: Erythrocyte Sedimentation Rate 37 mm/hr (0-20)
[2021-02-10 10:36] LABS: Absolute Lymphocyte Count 1.67 X10^3/uL (0.83-4.51); Absolute Neutrophil Count 5.5 X10^3/uL (2.0-7.7); Basophil# 0.05 X10^3/uL; Basophil% 0.6 % (0-1); Eosinophil# 0.04 X10^3/uL; Eosinophils% 0.5 % (0-5); Hemoglobin 9.5 g/dL (13.0-16.5); Lymphocyte # 1.67 X10^3/ul (4.0); Mean Corp Hgb Conc 30.6 g/dL (32-36); Mean Corpuscular Hgb 26.5 pg (27.0-32.0); Mean Corpuscular Volume 86.6 fL (80-94); Mean Platelet Vol. 11.4 fl (6.2-12.0); Monocyte# 1.03 X10^3/uL; Monocyte% 12.4 % (0-10); NRBC Flagged by Analyzer 0 % (0-5); Neutrophil # 5.51 X10^3/uL (2.7-7.7); Platelet Count 263 K/mm3 (150-450); RBC Distribution Width CV 16.2 % (11.6-14.6); RBC Distribution Width SD 51.8 fl (35.1-43.9); Red Blood Count 3.58 M/mm3 (4.6-6.2); White Blood Count 8.3 K/mm3 (4.4-11.0)
[2021-02-10 10:57] LABS: ALB/GLOB Ratio 0.8 RATIO (0.9-2.4); AST(SGOT) 13 U/L (15-37); Alanine Aminotransfer ALT/SGPT 19 U/L (16-61); Albumin, Serum 3.1 g/dL (3.2-5.0); Alkaline Phosphatase 71 U/L (45-117); Anion Gap 6 (5-15); BUN 31 mg/dL (7-18); BUN/Creat Ratio 18.8 RATIO (10-20); CRP 7.08 mg/L (0.0-3.0); Calcium,Total 8.7 mg/dL (8.5-10.1); Chloride 110 mmol/L (98-107); Creatinine, Serum 1.65 mg/dL (0.70-1.30); EST Glomerular Filtration Rate 43 mL/min (>60); Est Glom Filt Rate - Afr Amer 52 mL/min (>60); Globulin 3.7 g/dL (2.2-4.2); Glucose 153 mg/dL (74-106); Potassium 3.7 mmol/L (3.5-5.1); Protein, Total 6.8 g/dL (6.4-8.2); Rheumatoid Factor < 10.0 IU/mL (<15); Sodium Level 142 mmol/L (136-145)
[2021-02-10 11:32] LABS: Hepatitis B Surface Antibody Non-Reactive; Hepatitis B Surface Antigen Non-Reactive (Nonreactive); Hepatitis C Antibody Non-Reactive (Nonreactive)
[2021-02-12 11:54] LABS: CCP IgG Antibodies 4 units (0-19)
== END ==
PROVIDERS: PCP Family Medicine; Referring Provider Internal Medicine Rheumatology; Visit Provider Internal Medicine Rheumatology
DX: M06.09 Rheumatoid arthritis without rheumatoid factor, multiple sites (principal); I11.0 Hypertensive heart disease with heart failure; I50.9 Heart failure, unspecified; M79.7 Fibromyalgia; M15.9 Polyosteoarthritis, unspecified; M47.897 Other spondylosis, lumbosacral region; E11.9 Type 2 diabetes mellitus without complications; I48.91 Unspecified atrial fibrillation; J84.10 Pulmonary fibrosis, unspecified; I25.10 Atherosclerotic heart disease of native coronary artery without angina pectoris; M48.061 Spinal stenosis, lumbar region without neurogenic claudication; Z79.899 Other long term (current) drug therapy
CPT/HCPCS: 36415; 71046; 72170; 73030; 80053; 85025; 85652; 86140; 86200; 86431; 86706; 86803; 87340

== ENCOUNTER → 2021-02-27 12:25 | Outpatient (CLI) | payer MEDICARE, OTHER, SELFPAY ==
[2021-01-15 08:00] VITALS: BMI 31.4
[2021-02-27 15:27] LABS: Hematocrit 34.8 % (40-54); Hemoglobin 10.5 g/dL (13.0-16.5); Mean Corp Hgb Conc 30.2 g/dL (32-36); Mean Corpuscular Volume 89.5 fL (80-94); Mean Platelet Vol. 12.3 fl (6.2-12.0); Platelet Count 283 K/mm3 (150-450); RBC Distribution Width CV 17.9 % (11.6-14.6); RBC Distribution Width SD 58.3 fl (35.1-43.9); RET-HE 31.4 pg (30-35); Red Blood Count 3.89 M/mm3 (4.6-6.2); Reticulocyte Count 1.73 % (0.5-1.5); White Blood Count 10.8 K/mm3 (4.4-11.0)
[2021-02-27 15:42] LABS: Vitamin B12 334 pg/mL (211-911)
[2021-02-27 15:56] LABS: ALB/GLOB Ratio 0.9 RATIO (0.9-2.4); AST(SGOT) 30 U/L (15-37); Alanine Aminotransfer ALT/SGPT 44 U/L (16-61); Albumin, Serum 3.3 g/dL (3.2-5.0); Alkaline Phosphatase 61 U/L (45-117); Anion Gap 6 (5-15); BUN 33 mg/dL (7-18); BUN/Creat Ratio 20.6 RATIO (10-20); Calcium,Total 8.5 mg/dL (8.5-10.1); Chloride 109 mmol/L (98-107); EST Glomerular Filtration Rate 44 mL/min (>60); Est Glom Filt Rate - Afr Amer 54 mL/min (>60); Ferritin 77 ng/mL (26-388); Globulin 3.5 g/dL (2.2-4.2); Glucose 225 mg/dL (74-106); Iron 37 ug/dL (65-175); Iron Binding Capacity,Total 258 ug/dL (250-450); Potassium 4.2 mmol/L (3.5-5.1); Protein, Total 6.8 g/dL (6.4-8.2); Sodium Level 139 mmol/L (136-145); Thyroid Stim Hormone (TSH) 1.23 uIU/mL (0.358-3.74)
[2021-02-27 15:58] LABS: BNP,B-Type NATRIURETIC PEPTIDE 1286.9 pg/mL (0-100)
== END ==
PROVIDERS: PCP Family Medicine; Referring Provider Family Medicine; Visit Provider Family Medicine
DX: I13.0 Hypertensive heart and chronic kidney disease with heart failure and stage 1 through stage 4 chronic kidney disease, or unspecified chronic kidney disease (principal); E11.22 Type 2 diabetes mellitus with diabetic chronic kidney disease; I50.9 Heart failure, unspecified; N18.30 Chronic kidney disease, stage 3 unspecified; R06.00 Dyspnea, unspecified; D64.9 Anemia, unspecified; M06.09 Rheumatoid arthritis without rheumatoid factor, multiple sites; M79.7 Fibromyalgia; M15.9 Polyosteoarthritis, unspecified; M47.897 Other spondylosis, lumbosacral region; I48.91 Unspecified atrial fibrillation; I25.10 Atherosclerotic heart disease of native coronary artery without angina pectoris; J84.10 Pulmonary fibrosis, unspecified; M48.061 Spinal stenosis, lumbar region without neurogenic claudication; Z79.899 Other long term (current) drug therapy
CPT/HCPCS: 36415; 80053; 82306; 82607; 82728; 82746; 83540; 83550; 83880; 84443; 85027; 85045

== ENCOUNTER → 2021-03-12 11:41 | Outpatient (CLI) | payer MEDICARE, OTHER, SELFPAY ==
[2021-01-15 08:00] VITALS: BMI 31.4
[2021-03-12 15:27] LABS: Anion Gap 8 (5-15); BUN 34 mg/dL (7-18); BUN/Creat Ratio 17.6 RATIO (10-20); Calcium,Total 8.5 mg/dL (8.5-10.1); Chloride 105 mmol/L (98-107); Creatinine, Serum 1.93 mg/dL (0.70-1.30); EST Glomerular Filtration Rate 36 mL/min (>60); Est Glom Filt Rate - Afr Amer 43 mL/min (>60); Glucose 278 mg/dL (74-106); Potassium 4.1 mmol/L (3.5-5.1); Sodium Level 139 mmol/L (136-145)
[2021-03-12 15:40] LABS: BNP,B-Type NATRIURETIC PEPTIDE 894.2 pg/mL (0-100)
== END ==
PROVIDERS: PCP Family Medicine; Referring Provider Family Medicine; Visit Provider Family Medicine
DX: N28.9 Disorder of kidney and ureter, unspecified (principal)
CPT/HCPCS: 36415; 80048; 83880

== ENCOUNTER → 2021-04-25 09:43 | Outpatient (CLI) | payer MEDICARE, OTHER, SELFPAY ==
[2021-01-15 08:00] VITALS: BMI 31.4
[2021-04-25 12:22] LABS: Absolute Lymphocyte Count 1.08 X10^3/uL (0.83-4.51); Absolute Neutrophil Count 9.1 X10^3/uL (2.0-7.7); Basophil# 0.06 X10^3/uL; Basophil% 0.5 % (0-1); Eosinophil# 0.07 X10^3/uL; Eosinophils% 0.6 % (0-5); Hematocrit 35.8 % (40-54); Hemoglobin 11.3 g/dL (13.0-16.5); Lymphocyte # 1.08 X10^3/ul (0.83-4.51); Lymphocyte % 9.5 % (19-41); Mean Corp Hgb Conc 31.6 g/dL (32-36); Mean Corpuscular Hgb 28.6 pg (27.0-32.0); Mean Corpuscular Volume 90.6 fL (80-94); Mean Platelet Vol. 11.8 fl (6.2-12.0); Monocyte# 0.91 X10^3/uL; NRBC Flagged by Analyzer 0 % (0-5); Neutrophil # 9.12 X10^3/uL (2.7-7.7); Neutrophil % 80.7 % (47-70); Platelet Count 226 K/mm3 (150-450); RBC Distribution Width CV 14.7 % (11.6-14.6); RBC Distribution Width SD 49.6 fl (35.1-43.9); Red Blood Count 3.95 M/mm3 (4.6-6.2); White Blood Count 11.3 K/mm3 (4.4-11.0)
[2021-04-25 12:50] LABS: ALB/GLOB Ratio 0.9 RATIO (0.9-2.4); AST(SGOT) 18 U/L (15-37); Alanine Aminotransfer ALT/SGPT 25 U/L (16-61); Albumin, Serum 3.1 g/dL (3.2-5.0); Alkaline Phosphatase 58 U/L (45-117); Anion Gap 8 (5-15); BUN 36 mg/dL (7-18); Calcium,Total 8.4 mg/dL (8.5-10.1); Chloride 104 mmol/L (98-107); Creatinine, Serum 2.12 mg/dL (0.70-1.30); EST Glomerular Filtration Rate 32 mL/min (>60); Est Glom Filt Rate - Afr Amer 39 mL/min (>60); Globulin 3.3 g/dL (2.2-4.2); Glucose 332 mg/dL (74-106); Potassium 4.2 mmol/L (3.5-5.1); Protein, Total 6.4 g/dL (6.4-8.2); Sodium Level 139 mmol/L (136-145)
[2021-04-25 12:56] LABS: BNP,B-Type NATRIURETIC PEPTIDE 661.5 pg/mL (0-100)
== END ==
PROVIDERS: PCP Family Medicine; Referring Provider Internal Medicine Rheumatology; Visit Provider Internal Medicine Rheumatology
DX: R06.00 Dyspnea, unspecified (principal); M06.09 Rheumatoid arthritis without rheumatoid factor, multiple sites; M79.7 Fibromyalgia; M15.9 Polyosteoarthritis, unspecified; M47.897 Other spondylosis, lumbosacral region; I25.10 Atherosclerotic heart disease of native coronary artery without angina pectoris; I48.91 Unspecified atrial fibrillation; I11.0 Hypertensive heart disease with heart failure; I50.9 Heart failure, unspecified; E11.9 Type 2 diabetes mellitus without complications; J84.10 Pulmonary fibrosis, unspecified; M48.061 Spinal stenosis, lumbar region without neurogenic claudication
CPT/HCPCS: 36415; 80053; 83880; 85025

== ENCOUNTER 2021-05-22 10:17 | Emergency (ER) | payer MEDICARE, OTHER, SELFPAY ==
[2021-01-15 08:00] VITALS: BMI 31.4
[2021-05-22 10:18] VITALS: BP 133/59; PULSE 76; PULSE 79; RESP 20; RESP 27; TEMP 36.9; O2SAT 95; O2SAT 96; BMI 31.6
--- NOTE | 2021-05-22 10:25 | EKG12_ITS ---
Test Reason : CP Blood Pressure : / mmHG Vent. Rate : 071 BPM Atrial Rate : 071 BPM P-R Int : 160 ms QRS Dur : 188 ms QT Int : 498 ms P-R-T Axes : 000 237 010 degrees QTc Int : 541 ms Sinus rhythm with frequent AV dual-paced complexes and Premature supraventricular complexes in a armida rosangela of bigeminy Right bundle branch block Inferior infarct , age undetermined Abnormal ECG When compared with ECG of 15-JAN-2021 10:22, Premature ventricular complexes are no longer Present Premature supraventricular complexes are now Present Vent. rate has increased BY 9 BPM Confirmed by JESSICA WEBB, MANA ([id number]), story editor CHIQUITA HEWITT ([id number]) on 05/30/2021 9:45:30 AM Referred By: BEBETO Confirmed By:MANA LOPEZ MD
--- NOTE | 2021-05-22 10:31 | EKG12_ITS ---
Test Reason : CP Blood Pressure : / mmHG Vent. Rate : 069 BPM Atrial Rate : 069 BPM P-R Int : 000 ms QRS Dur : 192 ms QT Int : 504 ms P-R-T Axes : 000 235 013 degrees QTc Int : 540 ms Wide QRS rhythm with frequent AV dual-paced complexes and Premature supraventricular complexes in a p attern of bigeminy Right bundle branch block Inferior infarct , age undetermined Abnormal ECG Confirmed by JESSICA WEBB, MANA ([id number]), pictures editor CHIQUITA HEWITT ([id number]) on 05/26/2021 1:02:08 PM Referred By: BEBETO Confirmed By:MANA LOPEZ MD
--- NOTE | 2021-05-22 10:38 | EX.ED.DYSGE1 ---
HPI History of Present Illness Chief Complaint: General Illness Narrative Narrative: 80-year-old male presenting with low heart rate. Apparently his visiting nurse came out and state that his heart rate was in the upper 30s over 40s. He states he had been feeling fine and had not noticed any symptoms at all. He does have a history of a pacemaker as well as multiple comorbidities. He denies chest pain, palpitations, shortness of breath. [facility] Medical History Acute respiratory failure LUCAS (acute kidney injury) Amiodarone pulmonary toxicity Aortic valve disease Atrial fibrillation Bilateral lower extremity edema BPH (benign prostatic hyperplasia) BPH (benign prostatic hyperplasia) CAD (coronary artery disease) CHF, acute Congestive heart failure COPD (chronic obstructive pulmonary disease) Coronary artery disease Diabetes mellitus Diabetes mellitus, type II Finger pain, left Finger pain, right Heart failure with reduced ejection fraction History of atrial fibrillation History of PSVT (paroxysmal supraventricular tachycardia) Hyperlipidemia Hypertension Lower leg edema Pneumonia Pulmonary fibrosis PVT (paroxysmal ventricular tachycardia) Rheumatoid arthritis Shortness of breath Tinea manus Tinea unguium Toe pain, left Toe pain, right Home Medications aspirin 81 mg PO DAILY@0800 03/10/14 [History Last Taken 10/13/20 08:00] atorvastatin 40 mg PO QHS #30 tab 06/22/17 [Rx Last Taken 10/12/20 20:00] carvedilol 12.5 mg PO BID #60 06/22/17 [Rx Last Taken 10/13/20 09:00] pantoprazole 40 mg PO DAILY #30 06/22/17 [Rx Last Taken 10/13/20 09:00] amlodipine 10 mg PO DAILY 09/26/20 [History Last Taken 10/13/20 09:00] ferrous sulfate 325 mg PO DAILY 09/26/20 [History Last Taken 10/13/20 09:00] hydroxychloroquine 200 mg PO DAILY 09/26/20 [History Last Taken 10/13/20 09:00] tamsulosin 0.4 mg PO DAILY 09/26/20 [History Last Taken 10/12/20 20:00] isosorbide mononitrate 30 mg PO DAILY 10/13/20 [History Last Taken 10/13/20 09:00] acetaminophen 650 mg PO Q6H PRN PRN tab 10/16/20 [Rx Last Taken Unknown] furosemide 20 mg tablet 20 mg PO BID 01/07/21 [History Last Taken Unknown] hydroxyzine HCl 25 mg tablet 25 mg PO QHS 01/07/21 [History Last Taken Unknown] mirtazapine 15 mg tablet 30 mg PO QHS 01/07/21 [History Last Taken Unknown] potassium chloride 20 mEq tablet,extended release 20 meq PO DAILY 01/07/21 [History Last Taken Unknown] lisinopril 20 mg PO BID 01/10/21 [History Last Taken Unknown] prednisone 10 mg PO DAILY 01/10/21 [History Last Taken Unknown] finasteride 5 mg PO DAILY 01/14/21 [History Last Taken Unknown] hydralazine 50 mg PO TID 01/14/21 [History Last Taken Unknown] Levemir U-100 Insulin 10 units OTHER QHS 05/07/21 [History Last Taken Unknown] leflunomide [Arava] 5 mg PO DAILY 05/22/21 [History Last Taken Unknown] Allergy/AdvReac Type Severity Reaction Status Date / Time amiodarone Allergy Mild PT UNSURE Verified 05/22/21 10:18 OF REACTION simvastatin Allergy Mild Other Verified 05/22/21 10:18 hydralazine Allergy PT UNSURE Verified 05/22/21 10:18 OF REACTION Penicillins Allergy Rash Verified 05/22/21 10:18 rosuvastatin [From Crestor] Allergy PT UNSURE Verified 05/22/21 10:18 OF REACTION Family History Other CAD (coronary artery disease) Hypertension Seizures Surgical History History of cholecystectomy (~01/2021) Hx laparoscopic cholecystectomy S/P CABG (coronary artery bypass graft) S/P lumbar fusion S/P PTCA (percutaneous transluminal coronary angioplasty) Social History Smoking Status: Never smoker ROS ROS ED Constitutional Constitutional ED: Denies chills, fever(s) or subjective Eyes Eyes: Denies blurry vision or diplopia ENT ENT ED: Denies rhinorrhea or sore throat Cardiovascular Cardiovascular: Denies chest pain, palpitations or racing heartbeat Respiratory/Chest Respiratory/Chest: Denies cough or dyspnea Gastrointestinal Gastrointestinal: Denies abdominal pain, nausea or vomiting Genitourinary Genitourinary ED: Denies dysuria or hematuria Musculoskeletal Musculoskeletal: Denies arthralgias or myalgias Integumentary Denies abscess or rash Neurologic Neurologic: Denies headache(s), paresthesias or weakness EXAM Physical Exam Const Vital Signs: 05/22/21 10:18 05/22/21 10:42 05/22/21 10:43 Temperature 98.4 F Temperature Source Oral Pulse Rate 76 Respiratory Rate 27 H Respiratory Effort Normal Respiratory Pattern Normal Blood Pressure 133/59 H Blood Pressure Mean 83 Pulse Ox 96 Oxygen Delivery Method Room Air Nasal Cannula Oxygen Flow Rate (L/min) 2 05/22/21 13:06 Temperature Temperature Source Pulse Rate 71 Respiratory Rate 20 H Respiratory Effort Respiratory Pattern Blood Pressure 160/62 H Blood Pressure Mean 94 Pulse Ox 97 Oxygen Delivery Method Room Air Oxygen Flow Rate (L/min) Positive obese General Appearance ED: NAD Nutritional Appearance: obese HEENT Reports moist mucous membranes Negative for trauma Eyes PERRL and EOMs intact bilaterally General Eye ED: Negative for pale conjunctiva Resp normal respiratory effort and clear to auscultation bilaterally Cardio Rate: bradycardia GI normal to inspection, nondistended, normoactive bowel sounds Extremity normal to inspection General Extremety ED: Negative for tenderness Neuro oriented x3 and CN's II-XII intact bilaterally Sensorium / Orientation: alert Psych mental status grossly normal Skin no rashes or lesions noted and no wounds MDM MDM MDM Narrative Medical decision making narrative: Patient presenting with low heart rate. He is completely asymptomatic. He had EKG performed on arrival which has a rate of 69 bpm with pacer spikes noted as well as bigeminy on my interpretation. However his pulse. To be 39 we did determine which type of pacemaker he had and it was interrogated. Patient is completely asymptomatic. After the pacemaker was interrogated Dr. Mark. He felt that the pacemaker was working correctly and did recommend transfer to [facility] for monitoring given his low pulse rate. After speaking with the [facility] transfer line there were no beds available within the [facility]. I discussed the patient with Dr. Magaña and he states that this would not be abnormal. If the patient is asymptomatic he is okay to go home. This was discussed with the patient and he is discharged home in stable condition. Impression: 1. Pacemaker check Lab Data Attestation: I reviewed the patient's lab results. Labs: Laboratory Results - last 24 hr 05/22/21 05/22/21 10:45 10:45 WBC 10.4 RBC 3.62 L Hgb 10.0 L Hct 32.4 L MCV 89.5 MCH 27.6 MCHC 30.9 L RDW Std Deviation 42.0 RDW Coeff of Saloni 12.8 Plt Count 358 MPV 10.3 Immature Gran % (Auto) 0.700 Neut % (Auto) 63.2 Lymph % (Auto) 14.6 L [place] % (Auto) 15.9 H Eos % (Auto) 4.3 Baso % (Auto) 1.3 H Absolute Neuts (auto) 6.5 Absolute Lymphs (auto) 1.51 Nucleated RBC % 0 Differential Comment COMMENT Sodium 139 Potassium 3.8 Chloride 107 Carbon Dioxide 26.0 Anion Gap 6 BUN 25 H Creatinine 1.91 H Estim Creat Clear Calc 27.37 Est GFR (MDRD) Af Amer 44 L Est GFR (MDRD) Non-Af 36 L BUN/Creatinine Ratio 13.1 Glucose 186 H Calcium 8.5 Troponin I High Sens 73.2 Radiography Diagnostic Testing: Radiology Impression Chest X-Ray 05/22/21 11:10 IMPRESSION: No acute abnormality is seen. Electronically Signed: Gavin Salazar MD at 11:49 EDT , Service support , Discharge Plan Triage Chief Complaint: General Illness ED Provider: [place] Dx/Rx/DC Orders Instructions: Pacemakers Prescriptions: No Action furosemide [Lasix] 20 mg tablet 20 mg PO BID RF: 0 potassium chloride 20 mEq tablet extended release 20 meq PO DAILY RF: 0 hydroxyzine HCl 25 mg tablet 25 mg PO QHS RF: 0 mirtazapine 15 mg tablet 30 mg PO QHS RF: 0 aspirin 81 MG tablet,chewable 81 mg PO DAILY@0800 RF: 0 atorvastatin 40 MG tablet 40 mg PO QHS Qty: 30 RF: 0 carvedilol 12.5 MG tablet 12.5 mg PO BID Qty: 60 RF: 0 pantoprazole 40 MG tablet 40 mg PO DAILY Qty: 30 RF: 0 amlodipine 10 MG tablet 10 mg PO DAILY RF: 0 tamsulosin 0.4 MG capsule 0.4 mg PO DAILY RF: 0 ferrous sulfate 325 MG tablet 325 mg PO DAILY RF: 0 hydroxychloroquine 200 MG tablet 200 mg PO DAILY RF: 0 hydralazine 50 MG tablet 50 mg PO TID RF: 0 finasteride 5 MG tablet 5 mg PO DAILY RF: 0 Levemir U-100 Insulin 10 units OTHER QHS RF: 0 isosorbide mononitrate 30 MG tablet 30 mg PO DAILY RF: 0 acetaminophen 325 MG tablet 650 mg PO Q6H PRN PRN (Reason: Pain Score 1-10/Temp > 100.7 F) RF: 0 prednisone 10 MG tablet 10 mg PO DAILY RF: 0 lisinopril 20 MG tablet 20 mg PO BID RF: 0 leflunomide [Arava] 10 mg Tablet 5 mg PO DAILY RF: 0 Primary Care Provider: Samuel Avendaño Referrals: Samuel Avendaño MD [Primary Care Provider] - Disposition Disposition: Home, Self Care Discharge Date/Time: 05/22/21 13:08
[2021-05-22 10:53] LABS: Absolute Lymphocyte Count 1.51 X10^3/uL (0.83-4.51); Absolute Neutrophil Count 6.5 X10^3/uL (2.0-7.7); Basophil# 0.13 X10^3/uL; Basophil% 1.3 % (0-1); Eosinophil# 0.45 X10^3/uL; Eosinophils% 4.3 % (0-5); Hematocrit 32.4 % (40-54); Lymphocyte # 1.51 X10^3/ul (0.83-4.51); Lymphocyte % 14.6 % (19-41); Mean Corp Hgb Conc 30.9 g/dL (32-36); Mean Corpuscular Hgb 27.6 pg (27.0-32.0); Mean Corpuscular Volume 89.5 fL (80-94); Mean Platelet Vol. 10.3 fl (6.2-12.0); Monocyte# 1.65 X10^3/uL; Monocyte% 15.9 % (0-10); NRBC Flagged by Analyzer 0 % (0-5); Neutrophil # 6.54 X10^3/uL (2.7-7.7); Neutrophil % 63.2 % (47-70); POSITIVE DIFFERENTIAL YES; Platelet Count 358 K/mm3 (150-450); RBC Distribution Width CV 12.8 % (11.6-14.6); Red Blood Count 3.62 M/mm3 (4.6-6.2); White Blood Count 10.4 K/mm3 (4.4-11.0)
[2021-05-22 10:56] LABS: Differential Indicated SCAN CRITERIA MET
--- NOTE | 2021-05-22 11:09 | ED.RN ---
CALLED PT'S PCP'S OFFICE FOR MED LIST
--- NOTE | 2021-05-22 11:10 | RAD_ITS ---
STUDY: X-RAY CHEST REASON FOR EXAM: Male, 80 years old. Chest pain TECHNIQUE: Single AP portable view of the chest. COMPARISON: Comparison is made with prior study dated 02/10/2021. FINDINGS: EKG electrodes are seen. The lungs are clear and expanded. There is no demonstrated pleural abnormality. Sternal cerclage wires are present from a prior sternotomy. A left-sided dual-chamber pacemaker is present. Borderline cardiomegaly. Normal mediastinum and ceferino. There is prominence of the pulmonary hilar arteries without peripheral pulmonary vascular congestion, suggesting pulmonary hypertension. There is atherosclerotic calcification of the aortic arch with tortuosity. There are diffuse degenerative changes of the visualized thoracic spine. There is degenerative osteoarthritis of the bilateral shoulders. There is no demonstrated abnormality of the visualized soft tissue structures of the upper abdomen. RAD/Chest 1 View (Portable) IMPRESSION: No acute abnormality is seen. Electronically Signed: Gavin Salazar MD at 11:49 EDT , Service support ,
[2021-05-22 11:11] LABS: Anion Gap 6 (5-15); BUN 25 mg/dL (7-18); BUN/Creat Ratio 13.1 RATIO (10-20); Calcium,Total 8.5 mg/dL (8.5-10.1); Chloride 107 mmol/L (98-107); Creatinine, Serum 1.91 mg/dL (0.70-1.30); EST Glomerular Filtration Rate 36 mL/min (>60); Est Glom Filt Rate - Afr Amer 44 mL/min (>60); Estimated Creatinine Clearance 27.37 ml/min; Glucose 186 mg/dL (74-106); Potassium 3.8 mmol/L (3.5-5.1); Sodium Level 139 mmol/L (136-145); Troponin-I HS 73.2 pg/mL (3.0-78.5)
--- NOTE | 2021-05-22 11:11 | EKG12_ITS ---
Test Reason : CP Blood Pressure : / mmHG Vent. Rate : 082 BPM Atrial Rate : 082 BPM P-R Int : 000 ms QRS Dur : 078 ms QT Int : 392 ms P-R-T Axes : 000 054 023 degrees QTc Int : 457 ms Accelerated Junctional rhythm Septal infarct , age undetermined Abnormal ECG When compared with ECG of 22-MAY-2021 10:25, MANUAL COMPARISON REQUIRED, DATA IS UNCONFIRMED Confirmed by JESSICA WEBB, MANA ([id number]), copy editor CHIQUITA HEWITT ([id number]) on 05/30/2021 9:44:47 AM Referred By: BEBETO Confirmed By:AMNA LOPEZ MD
[2021-05-22 13:06] VITALS: BP 160/62; PULSE 71; RESP 20; O2SAT 97
== END 2021-05-22 13:08 | disposition home or self-care (01) ==
PROVIDERS: Emergency Provider Student in an Organized Health Care Education/Training Program; PCP Family Medicine
DX: Z45.018 Encounter for adjustment and management of other part of cardiac pacemaker (principal); I48.91 Unspecified atrial fibrillation; I25.10 Atherosclerotic heart disease of native coronary artery without angina pectoris; J44.9 Chronic obstructive pulmonary disease, unspecified; E11.9 Type 2 diabetes mellitus without complications; I11.0 Hypertensive heart disease with heart failure; I50.20 Unspecified systolic (congestive) heart failure; E78.5 Hyperlipidemia, unspecified; M06.9 Rheumatoid arthritis, unspecified; N40.0 Benign prostatic hyperplasia without lower urinary tract symptoms; E66.9 Obesity, unspecified; Z79.82 Long term (current) use of aspirin; Z79.4 Long term (current) use of insulin; Z79.52 Long term (current) use of systemic steroids; Z79.899 Other long term (current) drug therapy; Z95.0 Presence of cardiac pacemaker; Z95.1 Presence of aortocoronary bypass graft
CPT/HCPCS: 71045; 80048; 84484; 85025; 93005; 99285; A4216

== ENCOUNTER → 2021-06-06 10:25 | Outpatient (CLI) | payer MEDICARE, OTHER, SELFPAY ==
[2021-05-22 10:18] VITALS: BMI 31.6
--- NOTE | 2021-06-06 10:30 | RAD_ITS ---
STUDY: X-RAY CHEST REASON FOR EXAM: Male, 80 years old. PAIN TECHNIQUE: PA and lateral views of the chest. COMPARISON: Comparison is made with prior study dated 05/22/2021. FINDINGS: Hyperinflation. Mild increase in linear markings at the lung bases suggestive of basilar scarring. Mild increased markings also seen in the right upper lobe. There is no demonstrated pleural abnormality. Sternal cerclage wires and vascular clips are present from a prior sternotomy and coronary artery bypass graft procedure (CABG). Mild cardiomegaly. A left-sided dual-chamber pacemaker is seen. Normal mediastinum and ceferino. Normal visualized pulmonary arteries. There is atherosclerotic calcification of the aortic arch with tortuosity. There is demineralization of the osseous structures. Normal visualized ribs, clavicles, and shoulders. There is no demonstrated abnormality of the visualized soft tissue structures of the upper abdomen. RAD/Chest PA and Lateral IMPRESSION: Stable mild degree of increased markings at the lung bases suggestive scarring. Electronically Signed: Gavin Salazar MD at 15:05 EDT , Service support ,
[2021-06-10 20:08] LABS: QNTFERON TB Mitogen Value > 10.00 IU/mL (.); QNTFERON TB Nil Value 0 IU/mL (.); QNTFERON TB1+ Ag Value 0.11 IU/mL (.); QNTFERON TB2+ Ag Value 0.01 IU/mL (.)
[2021-06-10 21:27] LABS: QNTIFERON TB Positive Criteria Negative (Negative)
== END ==
PROVIDERS: PCP Family Medicine; Referring Provider Internal Medicine Rheumatology; Visit Provider Internal Medicine Rheumatology
DX: M06.09 Rheumatoid arthritis without rheumatoid factor, multiple sites (principal); M79.7 Fibromyalgia; M15.9 Polyosteoarthritis, unspecified; M47.897 Other spondylosis, lumbosacral region; I48.91 Unspecified atrial fibrillation; I11.0 Hypertensive heart disease with heart failure; I50.9 Heart failure, unspecified; E11.9 Type 2 diabetes mellitus without complications; I25.10 Atherosclerotic heart disease of native coronary artery without angina pectoris; M48.061 Spinal stenosis, lumbar region without neurogenic claudication; J84.10 Pulmonary fibrosis, unspecified; Z79.899 Other long term (current) drug therapy
CPT/HCPCS: 36415; 71046; 86480

== ENCOUNTER → 2021-07-01 08:41 | Outpatient (CLI) | payer MEDICARE, OTHER, SELFPAY ==
[2021-07-01 10:22] LABS: Absolute Lymphocyte Count 1.36 X10^3/uL (0.83-4.51); Absolute Neutrophil Count 4.9 X10^3/uL (2.0-7.7); Basophil# 0.11 X10^3/uL; Basophil% 1.4 % (0-1); Eosinophil# 0.43 X10^3/uL; Eosinophils% 5.4 % (0-5); Hematocrit 30.3 % (40-54); Hemoglobin 9.2 g/dL (13.0-16.5); Lymphocyte # 1.36 X10^3/ul (0.83-4.51); Lymphocyte % 17.2 % (19-41); Mean Corp Hgb Conc 30.4 g/dL (32-36); Mean Corpuscular Hgb 27.6 pg (27.0-32.0); Mean Platelet Vol. 10.3 fl (6.2-12.0); Monocyte# 1.09 X10^3/uL; Monocyte% 13.8 % (0-10); NRBC Flagged by Analyzer 0 % (0-5); Neutrophil # 4.88 X10^3/uL (2.7-7.7); Neutrophil % 61.8 % (47-70); Platelet Count 324 K/mm3 (150-450); RBC Distribution Width CV 15.1 % (11.6-14.6); RBC Distribution Width SD 49.9 fl (35.1-43.9); Red Blood Count 3.33 M/mm3 (4.6-6.2); White Blood Count 7.9 K/mm3 (4.4-11.0)
[2021-07-01 11:05] LABS: ALB/GLOB Ratio 0.9 RATIO (0.9-2.4); AST(SGOT) 13 U/L (15-37); Alanine Aminotransfer ALT/SGPT 20 U/L (16-61); Albumin, Serum 3.1 g/dL (3.2-5.0); Alkaline Phosphatase 50 U/L (45-117); Anion Gap 7 (5-15); BUN 22 mg/dL (7-18); BUN/Creat Ratio 11.3 RATIO (10-20); Calcium,Total 8.4 mg/dL (8.5-10.1); Chloride 108 mmol/L (98-107); Creatinine, Serum 1.94 mg/dL (0.70-1.30); EST Glomerular Filtration Rate 35 mL/min (>60); Est Glom Filt Rate - Afr Amer 43 mL/min (>60); Globulin 3.4 g/dL (2.2-4.2); Glucose 216 mg/dL (74-106); Potassium 3.6 mmol/L (3.5-5.1); Protein, Total 6.5 g/dL (6.4-8.2); Sodium Level 141 mmol/L (136-145)
== END ==
PROVIDERS: PCP Family Medicine; Referring Provider Internal Medicine Rheumatology; Visit Provider Internal Medicine Rheumatology
DX: M06.09 Rheumatoid arthritis without rheumatoid factor, multiple sites (principal); M79.7 Fibromyalgia; M47.897 Other spondylosis, lumbosacral region; I48.91 Unspecified atrial fibrillation; E11.9 Type 2 diabetes mellitus without complications; I25.10 Atherosclerotic heart disease of native coronary artery without angina pectoris; I11.0 Hypertensive heart disease with heart failure; I50.9 Heart failure, unspecified; J84.10 Pulmonary fibrosis, unspecified; Z79.899 Other long term (current) drug therapy
CPT/HCPCS: 36415; 80053; 85025

== ENCOUNTER → 2021-08-28 08:47 | Outpatient (CLI) | payer MEDICARE, OTHER, SELFPAY ==
[2021-08-28 10:40] LABS: Absolute Lymphocyte Count 1.05 X10^3/uL (0.83-4.51); Absolute Neutrophil Count 4.3 X10^3/uL (2.0-7.7); Basophil# 0.12 X10^3/uL; Basophil% 1.7 % (0-1); Eosinophil# 0.35 X10^3/uL; Hematocrit 40.6 % (40-54); Hemoglobin 12.5 g/dL (13.0-16.5); Lymphocyte # 1.05 X10^3/ul (0.83-4.51); Lymphocyte % 14.9 % (19-41); Mean Corp Hgb Conc 30.8 g/dL (32-36); Mean Corpuscular Hgb 27.6 pg (27.0-32.0); Mean Corpuscular Volume 89.6 fL (80-94); Mean Platelet Vol. 11.5 fl (6.2-12.0); Monocyte# 1.21 X10^3/uL; Monocyte% 17.2 % (0-10); NRBC Flagged by Analyzer 0 % (0-5); Neutrophil # 4.31 X10^3/uL (2.7-7.7); Neutrophil % 61.1 % (47-70); Platelet Count 238 K/mm3 (150-450); RBC Distribution Width CV 15.3 % (11.6-14.6); RBC Distribution Width SD 50.2 fl (35.1-43.9); Red Blood Count 4.53 M/mm3 (4.6-6.2); White Blood Count 7.1 K/mm3 (4.4-11.0)
[2021-08-28 10:58] LABS: Hemoglobin A1c 6.8 % (3.8-5.6)
[2021-08-28 11:03] LABS: PTHIN 167.9 pg/mL (18.4-80.1)
[2021-08-28 11:06] LABS: ALB/GLOB Ratio 0.8 RATIO (0.9-2.4); AST(SGOT) 23 U/L (15-37); Alanine Aminotransfer ALT/SGPT 25 U/L (16-61); Albumin, Serum 2.9 g/dL (3.2-5.0); Alkaline Phosphatase 59 U/L (45-117); Anion Gap 6 (5-15); BUN 25 mg/dL (7-18); BUN/Creat Ratio 11.2 RATIO (10-20); Calcium,Total 8.5 mg/dL (8.5-10.1); Chloride 106 mmol/L (98-107); Creatinine, Serum 2.24 mg/dL (0.70-1.30); EST Glomerular Filtration Rate 30 mL/min (>60); Est Glom Filt Rate - Afr Amer 36 mL/min (>60); Globulin 3.5 g/dL (2.2-4.2); Glucose 207 mg/dL (74-106); Iron 40 ug/dL (65-175); Potassium 3.5 mmol/L (3.5-5.1); Protein, Total 6.4 g/dL (6.4-8.2); Sodium Level 141 mmol/L (136-145)
== END ==
PROVIDERS: PCP Family Medicine; Referring Provider Internal Medicine Rheumatology; Visit Provider Internal Medicine Rheumatology
DX: M06.09 Rheumatoid arthritis without rheumatoid factor, multiple sites (principal); M79.7 Fibromyalgia; M15.9 Polyosteoarthritis, unspecified; M47.897 Other spondylosis, lumbosacral region; I48.91 Unspecified atrial fibrillation; I11.0 Hypertensive heart disease with heart failure; I50.9 Heart failure, unspecified; E11.9 Type 2 diabetes mellitus without complications; I25.10 Atherosclerotic heart disease of native coronary artery without angina pectoris; M48.061 Spinal stenosis, lumbar region without neurogenic claudication; J84.10 Pulmonary fibrosis, unspecified; Z79.899 Other long term (current) drug therapy
CPT/HCPCS: 36415; 80053; 82306; 83036; 83540; 83970; 85025

== ENCOUNTER 2021-09-08 12:08 | Inpatient (IN) | payer MEDICARE, OTHER, SELFPAY ==
[2021-09-08] VITALS (11 sets, daily range): BP systolic 148–171; BP diastolic 92–100; PULSE 70–79; RESP 10–20; TEMP 36.5–37.1; O2SAT 93–99; BMI 34.0; BMI 32.1
--- NOTE | 2021-09-08 12:48 | EKG12_ITS ---
Test Reason : SOB Blood Pressure : / mmHG Vent. Rate : 074 BPM Atrial Rate : 070 BPM P-R Int : 000 ms QRS Dur : 212 ms QT Int : 536 ms P-R-T Axes : 000 -80 100 degrees QTc Int : 594 ms Ventricular-paced rhythm with frequent Premature ventricular complexes Abnormal ECG Confirmed by SHAINA WEBB, LOLI ([id number]), senior editor CHIQUITA HEWITT ([id number]) on 09/10/2021 9:03:21 AM Referred By: LYNDA/SUNIL Confirmed By:LOLI MERRITT MD
--- NOTE | 2021-09-08 12:51 | ED.VIS.DYS ---
HPI History of Present Illness Chief Complaint: Shortness of Breath Onset/Context/Timing Onset: Yesterday Context: gradual Timing: Continuous Quality: Positive for Dyspnea on exertion Worsened by: Exertion Relieved by: Oxygen Associated Symptoms Negative for cough, rhinorrhea, ear pain, fever, sore throat, chills, sweats, clear sputum, white sputum, yellow sputum or green sputum Chest Pain: Positive for None Narrative Narrative: Patient presents with shortness of breath that has been getting worse since yesterday. Patient states it is gradually getting worse. Patient states his breathing is worse with any exertion. Patient states he has home oxygen which has been helping. Patient denies any cough. Patient denies any sore throat, rhinorrhea, or ear pain. Patient denies any fevers or chills. Patient denies any chest pain. Patient states he did have one episode of loose diarrhea yesterday. Patient denies any nausea or vomiting. [facility] Medical History Acute respiratory failure LUCAS (acute kidney injury) Amiodarone pulmonary toxicity Aortic valve disease Atrial fibrillation Bilateral lower extremity edema BPH (benign prostatic hyperplasia) BPH (benign prostatic hyperplasia) CAD (coronary artery disease) CHF, acute Congestive heart failure COPD (chronic obstructive pulmonary disease) Coronary artery disease Diabetes mellitus Diabetes mellitus, type II Finger pain, left Finger pain, right Heart failure with reduced ejection fraction History of atrial fibrillation History of PSVT (paroxysmal supraventricular tachycardia) Hyperlipidemia Hypertension Lower leg edema Pneumonia Pulmonary fibrosis PVT (paroxysmal ventricular tachycardia) Rheumatoid arthritis Shortness of breath Tinea manus Tinea unguium Toe pain, left Toe pain, right Home Medications aspirin 81 mg PO DAILY@0800 03/10/14 [History Last Taken 10/13/20 08:00] atorvastatin 40 mg PO QHS #30 tab 06/22/17 [Rx Last Taken 10/12/20 20:00] carvedilol 12.5 mg PO BID #60 06/22/17 [Rx Last Taken 10/13/20 09:00] pantoprazole 40 mg PO DAILY #30 06/22/17 [Rx Last Taken 10/13/20 09:00] ferrous sulfate 325 mg PO DAILY 09/26/20 [History Last Taken 10/13/20 09:00] hydroxychloroquine 200 mg PO DAILY 11/12/20 [History Last Taken 10/13/20 09:00] tamsulosin 0.4 mg PO DAILY 09/26/20 [History Last Taken 10/12/20 20:00] acetaminophen 650 mg PO Q6H PRN PRN tab 10/16/20 [Rx Last Taken Unknown] furosemide 20 mg tablet 40 mg PO DAILY 01/07/21 [History Last Taken Unknown] potassium chloride 20 mEq tablet,extended release 20 meq PO DAILY 01/07/21 [History Last Taken Unknown] finasteride 5 mg PO DAILY 01/14/21 [History Last Taken Unknown] hydralazine 100 mg PO TID 01/14/21 [History Last Taken Unknown] leflunomide [Arava] 5 mg PO DAILY 05/22/21 [History Last Taken Unknown] isosorbide dinitrate 1 tab TID 06/20/21 [History Last Taken Unknown] SIMPHONI 1 dose IV BOLUS QMONTH 09/08/21 [History Last Taken Unknown] apixaban [Eliquis] 2.5 mg PO BID 09/08/21 [History Last Taken Unknown] lisinopril 20 mg PO BID 09/08/21 [History Last Taken Unknown] mirtazapine 45 mg PO QHS 09/08/21 [History Last Taken Unknown] tramadol 50 mg PO BID PRN 09/08/21 [History Last Taken Unknown] Allergy/AdvReac Type Severity Reaction Status Date / Time amiodarone Allergy Mild PT UNSURE Verified 09/08/21 12:12 OF REACTION simvastatin Allergy Mild Other Verified 09/08/21 12:12 hydralazine Allergy PT UNSURE Verified 09/08/21 12:12 OF REACTION Penicillins Allergy Rash Verified 09/08/21 12:12 rosuvastatin [From Crestor] Allergy PT UNSURE Verified 09/08/21 12:12 OF REACTION Family History Other CAD (coronary artery disease) Hypertension Seizures Surgical History History of cholecystectomy (~01/2021) Hx laparoscopic cholecystectomy S/P CABG (coronary artery bypass graft) S/P lumbar fusion S/P PTCA (percutaneous transluminal coronary angioplasty) Social History Smoking Status: Never smoker ROS ROS ED Constitutional Constitutional ED: Denies chills or fever(s) Eyes Eyes: Denies blurry vision or change in vision ENT ENT ED: Denies rhinorrhea or sore throat Cardiovascular Cardiovascular: Denies chest pain or palpitations Respiratory/Chest Respiratory/Chest: Reports dyspnea; Denies cough Gastrointestinal Gastrointestinal: Reports diarrhea; Denies nausea or vomiting Genitourinary Genitourinary ED: Denies dysuria or hematuria Musculoskeletal Musculoskeletal: Denies back pain or neck pain Integumentary Denies abscess or rash Neurologic Neurologic: Denies headache(s) or weakness Allergic/Immunologic Allergic/Immunologic ED: Denies mouth swelling or urticaria EXAM Physical Exam Const Vital Signs: 09/08/21 12:09 09/08/21 12:55 09/08/21 13:37 Temperature 98.4 F 97.8 F Temperature Source Oral Temporal Pulse Rate 70 74 Respiratory Rate 10 L 20 H Respiratory Effort Short of Breath Labored Blood Pressure 171/100 H 166/97 H Blood Pressure Mean 123 120 Pulse Ox 98 94 Oxygen Delivery Method Nasal Cannula Nasal Cannula Nasal Cannula Oxygen Flow Rate (L/min) 4 4 4 Positive well nourished and well developed General Appearance ED: well developed HEENT Reports moist mucous membranes Eyes EOMs intact bilaterally Neck supple and no JVD Resp normal respiratory effort Auscultation: rales right Cardio regular rate and regular rhythm Rate: other Other Details: Occasional ectopics GI non-tender and non-distended Auscultation: normoactive bowel sounds Palpation: soft Extremity normal to inspection General Extremety ED: Negative for edema or tenderness General Extremity: Negative for edema Neuro oriented x3, CN's II-XII intact bilaterally and no sensory deficits noted Sensorium / Orientation: alert Motor Exam: strength 5/5 throughout Psych mental status grossly normal MDM MDM MDM Narrative Medical decision making narrative: EKG was obtained. On my interpretation, there is a paced rhythm with a rate of 74. There are occasional PVCs noted. There are no acute ST or T wave changes. QRS interval and was within normal limits. Wilder was -80. CBC was obtained and was within normal limits. Basic metabolic profile shows a slightly elevated creatinine of 2.33 and a BUN of 30. High-sensitivity troponin was 93. BNP was 3042.5. This was increased from previous result. Portable chest x-ray was obtained. There is 1 view. On my interpretation, there is some evidence of congestive heart failure. There is borderline cardiomegaly. Bony thorax is normal. Radiologist also interpreted the x-ray and agrees. Case was discussed with the hospitalist. She will admit the patient to her service. Patient was given a dose of Lasix here. Lab Data Labs: Laboratory Results - last 24 hr 09/08/21 09/08/21 09/08/21 12:35 12:35 12:35 WBC 8.0 RBC 4.89 Hgb 13.5 Hct 43.8 MCV 89.6 MCH 27.6 MCHC 30.8 L RDW Std Deviation 50.2 H RDW Coeff of Saloni 15.4 H Plt Count 217 MPV 11.1 Immature Gran % (Auto) 0.500 Neut % (Auto) 70.6 H Lymph % (Auto) 12.2 L [place] % (Auto) 12.7 H Eos % (Auto) 2.9 Baso % (Auto) 1.1 H Absolute Neuts (auto) 5.7 Absolute Lymphs (auto) 0.98 Nucleated RBC % 0 Sodium 143 Potassium 4.0 Chloride 107 Carbon Dioxide 29.0 Anion Gap 7 BUN 30 H Creatinine 2.33 H Estim Creat Clear Calc 21.26 Est GFR (MDRD) Af Amer 35 L Est GFR (MDRD) Non-Af 29 L BUN/Creatinine Ratio 12.9 Glucose 191 H Calcium 9.0 Troponin I High Sens 93 H B-Natriuretic Peptide 3042.5 H Radiography Chest X-Ray - ED: 1 View, Read by ED Physician, Read by Radiologist and CHF EKG Initial EKG: Attestation: I personally reviewed and interpreted this EKG as follows: Interpretation: Paced and LBBB Treatment and Re-Evaluation Vital Sign Attestation:: Vital signs were reviewed prior to admission. They are stable. Discharge Plan Dx/Rx/DC Orders Clinical Impression: CHF, acute Disposition Disposition: Acute Care Hospital [facility]
[2021-09-08 13:04] LABS: Absolute Lymphocyte Count 0.98 X10^3/uL (0.83-4.51); Absolute Neutrophil Count 5.7 X10^3/uL (2.0-7.7); Basophil# 0.09 X10^3/uL; Basophil% 1.1 % (0-1); Eosinophil# 0.23 X10^3/uL; Eosinophils% 2.9 % (0-5); Hematocrit 43.8 % (40-54); Hemoglobin 13.5 g/dL (13.0-16.5); Lymphocyte # 0.98 X10^3/ul (0.83-4.51); Lymphocyte % 12.2 % (19-41); Mean Corp Hgb Conc 30.8 g/dL (32-36); Mean Corpuscular Hgb 27.6 pg (27.0-32.0); Mean Corpuscular Volume 89.6 fL (80-94); Mean Platelet Vol. 11.1 fl (6.2-12.0); Monocyte# 1.02 X10^3/uL; Monocyte% 12.7 % (0-10); NRBC Flagged by Analyzer 0 % (0-5); Neutrophil # 5.68 X10^3/uL (2.7-7.7); Neutrophil % 70.6 % (47-70); Platelet Count 217 K/mm3 (150-450); RBC Distribution Width CV 15.4 % (11.6-14.6); RBC Distribution Width SD 50.2 fl (35.1-43.9); Red Blood Count 4.89 M/mm3 (4.6-6.2)
--- NOTE | 2021-09-08 13:13 | RAD_ITS ---
STUDY: X-RAY CHEST REASON FOR EXAM: Male, 81 years old. Sob TECHNIQUE: Single AP portable view of the chest. COMPARISON: Comparison is made with prior study dated 06/06/2021. FINDINGS: EKG electrodes are seen. There is mild degree of vascular congestion and CHF. Right basilar atelectasis with small right pleural effusion. Sternal cerclage wires and vascular clips are present from a prior sternotomy and coronary artery bypass graft procedure (CABG). A left-sided dual-chamber pacemaker is seen. Normal mediastinum and ceferino. Normal visualized pulmonary arteries. There is atherosclerotic calcification of the aortic arch with tortuosity. There are diffuse degenerative changes of the visualized thoracic spine. Normal visualized ribs, clavicles, and shoulders. There is no demonstrated abnormality of the visualized soft tissue structures of the upper abdomen. RAD/Chest 1 View (Portable) IMPRESSION: Findings suggestive of a mild degree of CHF with right basilar atelectasis and small right pleural effusion. Electronically Signed: Gavin Salazar MD at 14:02 EDT , Service support ,
[2021-09-08 13:17] LABS: Anion Gap 7 (5-15); BUN 30 mg/dL (7-18); BUN/Creat Ratio 12.9 RATIO (10-20); Chloride 107 mmol/L (98-107); Creatinine, Serum 2.33 mg/dL (0.70-1.30); EST Glomerular Filtration Rate 29 mL/min (>60); Est Glom Filt Rate - Afr Amer 35 mL/min (>60); Estimated Creatinine Clearance 21.26 ml/min; Glucose 191 mg/dL (74-106); Sodium Level 143 mmol/L (136-145); Troponin-I HS 93 pg/mL (3.0-78.0)
[2021-09-08] MEDS: Furosemide 20 MG/2 ML VIAL IV (14:21)
[2021-09-08 14:36] LABS: International Normalized Ratio 1.5; Prothrombin Time (Protime)PT. 17.7 SECONDS (11.7-14.9)
--- NOTE | 2021-09-08 14:56 | PCM.HP.STD ---
[facility] - General General Date of Admission: 09/08/21 Date of Service: 09/08/21 Chief Complaint: Shortness of breath HPI Narrative JUVENTINO CERNA, is a 81 M who presented to the emergency department [facility] on 09/08/2021 complaining of shortness of breath. He states he started having shortness of breath of last week and it has progressively gotten worse since then. Yesterday his granddaughter brought over some oxygen and he placed that on and felt a little bit better but today when he got up his shortness of breath was worse so he came to the emergency department. He states that they had been decreasing his Lasix dose which was done approximately 3 weeks ago because of worsening renal function. 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 The patient states he weighs himself daily and has not noted any significant weight changes. He denies any fever, chills, nausea, vomiting, chest pain, tingling, numbness, or weakness. He does complain of a cough that is productive of whitish sputum in small amounts. He denies having any sick contacts. He states he is does not go out at his house regularly. He has not been eating out or had a significant change in his diet. He states his granddaughter brings him his meals. He has been vaccinated for Covid and had his booster. He reports a history of valve replacement but is unclear which valve was replaced and from our conversation it sounds like he may need another valve performed as well. He follows up with Dr. 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 He does not recall his last echocardiogram. He was afebrile in the emergency department. His blood pressures were markedly elevated with systolics from 160 to 171 and diastolics from 62-100. His respiratory rate was 18-20 and his oxygen saturation is 99% on 2 L nasal cannula. At baseline he does not require any supplemental oxygen. He reports compliance with all his medications. His CBC is unremarkable. His BMP shows normal electrolytes but an elevated BUN and creatinine at 30 and 2.33. It appears his baseline serum creatinine has been climbing over the last year and runs 1.6-1.9. His initial troponin was just slightly elevated at 93. He was 3042.5. His EKG shows a ventricular paced rhythm with a left bundle branch block and the patient has no chest pain. His chest x-ray shows mild vascular congestion and small right pleural effusion. A COVID-19 rapid antigen was performed and was negative. In the emergency department he was given 20 mg of IV Lasix in the ER physician requested admission for acute exacerbation of congestive heart failure. [facility] Medical History Acute respiratory failure LUCAS (acute kidney injury) Amiodarone pulmonary toxicity Aortic valve disease Atrial fibrillation Bilateral lower extremity edema BPH (benign prostatic hyperplasia) BPH (benign prostatic hyperplasia) CAD (coronary artery disease) CHF, acute Congestive heart failure COPD (chronic obstructive pulmonary disease) Coronary artery disease Diabetes mellitus Diabetes mellitus, type II Finger pain, left Finger pain, right Heart failure with reduced ejection fraction History of atrial fibrillation History of PSVT (paroxysmal supraventricular tachycardia) Hyperlipidemia Hypertension Lower leg edema Pneumonia Pulmonary fibrosis PVT (paroxysmal ventricular tachycardia) Rheumatoid arthritis Shortness of breath Tinea manus Tinea unguium Toe pain, left Toe pain, right Home Medications aspirin 81 mg PO DAILY@0800 03/10/14 [History Last Taken 09/08/21] atorvastatin 40 mg PO QHS #30 tab 06/22/17 [Rx Last Taken 09/07/21] carvedilol 12.5 mg PO BID #60 06/22/17 [Rx Last Taken 09/08/21] pantoprazole 40 mg PO DAILY #30 06/22/17 [Rx Last Taken 09/08/21] ferrous sulfate 325 mg PO DAILY 09/26/20 [History Last Taken 09/08/21] hydroxychloroquine 200 mg PO DAILY 09/26/20 [History Last Taken 09/08/21] tamsulosin 0.4 mg PO DAILY 09/26/20 [History Last Taken 09/08/21] furosemide 20 mg tablet 20 mg PO DAILY 01/07/21 [History Last Taken 09/08/21] potassium chloride 20 mEq tablet,extended release 20 meq PO DAILY 01/07/21 [History Last Taken 09/08/21] finasteride 5 mg PO DAILY 01/14/21 [History Last Taken 09/08/21] leflunomide [Arava] 5 mg PO DAILY 05/22/21 [History Last Taken 09/08/21] SIMPHONI 1 dose IV BOLUS QMONTH 09/08/21 [History Last Taken 1 Month Ago ~08/09/21] acetaminophen 500 mg PO Q6H PRN 09/08/21 [History Last Taken 09/07/21] apixaban [Eliquis] 2.5 mg PO BID 09/08/21 [History Last Taken 09/08/21] calcium carbonate 500 mg PO DAILY 09/08/21 [History Last Taken 09/08/21] hydralazine 100 mg PO TID 09/08/21 [History Last Taken 09/08/21] isosorbide dinitrate 20 mg PO TID 09/08/21 [History Last Taken 09/08/21] lisinopril 20 mg PO BID 09/08/21 [History Last Taken 09/08/21] mirtazapine 45 mg PO DAILY 09/08/21 [History Last Taken 09/08/21] tramadol 50 mg PO BID PRN 09/08/21 [History Last Taken Unknown] Allergy/AdvReac Type Severity Reaction Status Date / Time amiodarone Allergy Mild PT UNSURE Verified 09/08/21 12:12 OF REACTION simvastatin Allergy Mild Other Verified 09/08/21 12:12 hydralazine Allergy PT UNSURE Verified 09/08/21 12:12 OF REACTION Penicillins Allergy Rash Verified 09/08/21 12:12 rosuvastatin [From Crestor] Allergy PT UNSURE Verified 09/08/21 12:12 OF REACTION Family History Other CAD (coronary artery disease) Hypertension Seizures Surgical History History of cholecystectomy (~01/2021) Hx laparoscopic cholecystectomy S/P CABG (coronary artery bypass graft) S/P lumbar fusion S/P PTCA (percutaneous transluminal coronary angioplasty) Social History (Updated 09/08/21 @ 15:[address] Ellie Acevedo DO) current occupational status: retired Smoking Status: Never smoker alcohol intake: never substance use type: does not use ROS Constitutional Constitutional: Denies anorexia, change in weight, chills, fatigue, fever(s), malaise, night sweats, weakness or other Eyes Eyes: Denies blurry vision, change in eye color, change in vision, discharge from eye(s), double vision, erythema, eye pain, loss of vision or other ENT HEENT: Denies abnormal hearing, dysphagia, ear pain, epistaxis, headache(s), hearing loss, nasal congestion, nasal discharge, post nasal drip, sinus pressure, sore throat or other Cardiovascular Cardiovascular: Reports edema and orthopnea; Denies chest pain, claudication, dyspnea on exertion, lightheadedness, palpitations, paroxysmal nocturnal dyspnea, rapid heart rate, syncope or other Respiratory/Chest Respiratory/Chest: Reports cough, dyspnea, productive cough, shortness of breath at rest and shortness of breath with exertion; Denies excessive phlegm production, hemoptysis, wheezing or other Gastrointestinal Gastrointestinal: Denies abdominal pain, coffee ground emesis, constipation, diarrhea, dyspepsia, hematemesis, hematochezia, loose stools, melena, nausea, vomiting or other Genitourinary Genitourinary: Denies burning urination, difficulty urinating, dysuria, hematuria, nocturia, urinary frequency, urinary hesitancy, urinary incontinence, urinary urgency or other Musculoskeletal Musculoskeletal: Reports joint pain and joint stiffness; Denies arthralgias, back pain, joint swelling, myalgias, neck pain or other Neurologic Neurologic: Denies abnormal gait, abnormal speech, confusion, disequilibrium, dizziness, focal weakness, headache(s), numbness, paresthesias, seizure-like activity, seizures, syncope, tingling, tremor(s) or other Psychiatric Psychiatric: Denies anxiety, depression, homicidal ideation, suicidal ideation or other Endocrine Endocrinology: Denies change in body appearance, cold intolerance, excessive sweating, heat intolerance, polydipsia, polyuria or other Hematologic/Lymphatic Hematologic/Lymphatic: Denies anemia, easy bleeding, easy bruising, lymphadenopathy or other Allergic/Immunologic Allergic/Immunologic: Denies rhinitis, hives, eczemia, asthma or other Vital Signs Vital Signs Vital Signs: 09/08/21 12:09 09/08/21 12:55 09/08/21 13:37 Temperature 98.4 F 97.8 F Temperature Source Oral Temporal Pulse Rate 70 74 Respiratory Rate 10 L 20 H Respiratory Effort Short of Breath Labored Blood Pressure 171/100 H 166/97 H Blood Pressure Mean 123 120 Pulse Ox 98 94 Oxygen Delivery Method Nasal Cannula Nasal Cannula Nasal Cannula Oxygen Flow Rate (L/min) 4 4 4 09/08/21 14:21 Temperature 98.7 F Temperature Source Oral Pulse Rate 74 Respiratory Rate 18 Respiratory Effort Blood Pressure 165/99 H Blood Pressure Mean 121 Pulse Ox 99 Oxygen Delivery Method Nasal Cannula Oxygen Flow Rate (L/min) 2 Weight Weight: 92.8 kg Body Mass Index (BMI) 34.0 Physical Exam Const alert, oriented x3 and no apparent distress Constitutional Narrative: Obese elderly white gentleman sitting up in the bed, appears comfortable, nontoxic, mild dyspnea with conversation but no distress, currently on 2 L nasal cannula General Appearance: cooperative HEENT normocephalic, head/scalp atraumatic, moist oral mucous membranes and oropharynx normal HEENT Narrative: Moderately hard of hearing, fair dentition, Mallampati 2, no thrush Mouth: oral and palatal mucosa normal Eyes PERRL, EOMs intact bilaterally and conjunctivae normal Eyes Narrative: No scleral icterus, mild bilateral arcus senilis Neck no lymphadenopathy, supple, no JVD and no carotid bruits Resp no retractions, no use of accessory muscles and clear to auscultation bilaterally Resp Narrative: Diminished bilateral bases with few scattered crackles right greater than left, tachypneic and dyspneic with conversation Auscultation: crackles; Negative for rales, rhonchi or wheezes Cardio regular rate, regular rhythm, S1 normal heart sound, S2 normal heart sound, no rub, no gallops, no clicks and no JVD; Negative for no murmurs Cardio Narrative: Rhythm is paced, distant 2 out of 6 systolic murmur that sounds loudest at the left lower sternal border, no carotid radiation GI normal to inspection, nondistended, normoactive bowel sounds, soft to palpation, non-tender and non-distended Extremity Extremity Narrative: Trace bilateral lower extremity pitting edema-patient states this is his baseline, no cyanosis or clubbing, cap refill is 2+ Peripheral Pulses: Yes pulses 2+ throughout Skin no rashes or lesions noted, no wounds, skin turgor normal, no jaundice, no petechiae and no mottling Neuro oriented x3, CN's II-XII intact bilaterally, moves all extremities and no focal motor deficits Sensorium / Orientation: awake, alert, oriented to person, oriented to place and oriented to time Speech: speech normal Psych affect normal Results Lab / Micro Data Attestation: I reviewed the patient's lab results. Result Diagrams: 09/08/21 12:35 09/08/21 12:35 Labs: Laboratory Results - last 24 hr 09/08/21 12:13: PT 17.7 H, INR 1.5 09/08/21 12:35: WBC 8.0, RBC 4.89, Hgb 13.5, Hct 43.8, MCV 89.6, MCH 27.6, MCHC 30.8 L, RDW Std Deviation 50.2 H, RDW Coeff of Saloni 15.4 H, Plt Count 217, MPV 11.1, Immature Gran % (Auto) 0.500, Neut % (Auto) 70.6 H, Lymph % (Auto) 12.2 L, Gallia % (Auto) 12.7 H, Eos % (Auto) 2.9, Baso % (Auto) 1.1 H, Absolute Neuts (auto) 5.7, Absolute Lymphs (auto) 0.98, Nucleated RBC % 0 09/08/21 12:35: Sodium 143, Potassium 4.0, Chloride 107, Carbon Dioxide 29.0, Anion Gap 7, BUN 30 H, Creatinine 2.33 H, Estim Creat Clear Calc 21.26, Est GFR (MDRD) Af Amer 35 L, Est GFR (MDRD) Non-Af 29 L, BUN/Creatinine Ratio 12.9, Glucose 191 H, Calcium 9.0, Troponin I High Sens 93 H 09/08/21 12:35: B-Natriuretic Peptide 3042.5 H Micro: Microbiology 09/08/21 13:00 Nasal Secretion SARS-CoV-2 Antigen (Rapid) - Final Radiology Impression Chest X-Ray 09/08/21 13:13 IMPRESSION: Findings suggestive of a mild degree of CHF with right basilar atelectasis and small right pleural effusion. Electronically Signed: Gavin Salazar MD at 14:02 EDT , Service support , Assessment & Plan Assessment/Plan (1) Congestive heart failure: (2) LUCAS (acute kidney injury): (3) Shortness of breath: PLAN: Shortness of breath secondary to acute exacerbation of heart failure -Type of heart failure unknown at this time as I do not have a documented EF recently -BNP is markedly elevated at greater than 3000 -Records requested from Dr. 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 [place] -Check echocardiogram -Lasix 40 mg IV push twice daily -Monitor serum creatinine closely -Cycle cardiac enzymes--> initial was just slightly elevated at 93 but serum creatinine is elevated and patient is asymptomatic therefore I am not clear of the significance of this -Continue home metoprolol, hydralazine, isosorbide dinitrate -Hold lisinopril with rising serum creatinine -Patient states he has a history of valvular replacement but I am unclear what he had done in he is unclear as well: it does appear that he has had a CABG in the past -Check viral PCR -Check sputum culture -Highly doubt infectious -Daily weights -Accurate I's and O's -1500 cc fluid restriction Mild troponin elevation -Initial was 93 -Cycle cardiac enzymes -We will continue Eliquis at this time -Continue home aspirin, atorvastatin, beta chad -Hold lisinopril with worsening creatinine -Check echocardiogram LUCAS on CKD stage IIIb -It appears his baseline serum creatinine is 1.6-1.9 -Current serum creatinine is 2.33 and it appears that he has been rising as of recently -Hold lisinopril -Monitor serum creatinine closely with diuresis -Patient states he does have follow-up with nephrology as an outpatient upcoming but it is not soon -Consider nephrology consultation -Avoid nephrotoxins -Check retroperitoneal ultrasound CAD/HTN/HPL/atrial fibrillation -Continue home medications except for lisinopril -Continue apixaban at 2.5 mg twice daily Rheumatoid arthritis -Continue Plaquenil and Arava GERD -Continue PPI BPH -Continue Flomax Depression -Continue mirtazapine DVT prophylaxis -Continue apixaban CODE STATUS -Full code but unverified Charges/Coding Visit Charges Inpatient E&M: 83821 Init Hosp L3
[2021-09-08 15:04] LABS: Troponin-I HS 80 pg/mL (3.0-78.0)
--- NOTE | 2021-09-08 15:06 | ECHOCS_ITS ---
Reason For Study: CHF Procedure This was a 2D Doppler, Color Flow transthoracic echocardiogram. Contrast injection was performed. Exam performed portable in patient room. Left Ventricle Mildly dilated left ventricle. Moderate concentric left ventricular hypertrophy. The estimated ejection fraction is 34 %. Stage 3 diastolic dysfunction. There is moderate global hypokinesis of the left ventricle. Apical wall motion abnormality may reflect pacemaker activation. Right Ventricle Normal RV size. ICD or pacer leads identified within the right ventricle. Normal systolic function. Atria The left atrium is moderately enlarged. Normal right atrium. Mitral Valve There is mild to moderate mitral annular calcification. Mild (1+) eccentric mitral valve insufficiency. Tricuspid Valve Normal tricuspid valve. Moderate (2+) tricuspid valve insufficiency. Moderate pulmonary hypertension. Pulmonary artery systolic pressure is 60 mmHg. Aortic Valve Trisinus/trileaflet aortic valve. Mild focal aortic valve calcification. Peak aortic valve gradient 23 mmHg. Mean aortic valve gradient 12 mmHg. Mild aortic stenosis. Mild-Moderate (1-2+) aortic valve insufficiency. Great Vessels Normal aortic root. The pulmonary artery is normal size. No collapse of the inferior vena cava. Pericardium/Pleural No pericardial effusion. Medication Diluted definity 3ml given slow IV push to enhance endocardial definition. MMode/2D Measurements & Calculations LVIDd: 5.8 cm IVSd: 1.5 cm LVOT diam: 2.0 cm LVIDs: 5.2 cm LVPWd: 1.5 cm LVOT area: 3.3 cm2 RVDd: 4.9 cm FS: 11.1 % Ao root diam: 3.7 cm LAV(MOD-bp): 82.8 ml LVAd ap4: 36.4 cm2 LAV(MOD-bp) Indexed: 41.4 ml/m2 LVLd ap4: 8.9 cm LAV(MOD-sp2): 73.8 ml EDV(MOD-sp4): 119.9 ml LAV(MOD-sp4): 88.3 ml EDV(sp4-el): 126.9 ml LVAs ap4: 32.4 cm2 LVLs ap4: 8.8 cm ESV(MOD-sp4): 94.9 ml ESV(sp4-el): 100.8 ml EF(MOD-sp4): 20.9 % EF(sp4-el): 20.5 % SV(MOD-sp4): 25.0 ml SV(sp4-el): 26.0 ml LA A4 area: 26.8 cm2 LA dimension(2D): 5.1 cm RA A4 area: 20.3 cm2 Doppler Measurements & Calculations MV E max alan: 114.7 cm/sec Med Peak E' Alan: 3.2 cm/sec Ao V2 max: 240.7 cm/sec MV A max alan: 43.4 cm/sec E/E' med: 36.3 Ao max P.3 mmHg MV E/A: 2.6 Ao V2 mean: 162.3 cm/sec Ao mean P.9 mmHg Ao V2 VTI: 41.5 cm EMILY(I,D): 1.3 cm2 EMILY(V,D): 1.4 cm2 AI max alan: 459.3 cm/sec LV V1 max: 100.2 cm/sec SV(LVOT): 55.4 ml AI max P.4 mmHg LV V1 max P.0 mmHg LV V1 mean P.9 mmHg AI dec slope: 212.3 cm/sec2 LV V1 mean: 63.5 cm/sec AI P1/2t: 633.8 msec LV V1 VTI: 16.8 cm PA V2 max: 75.0 cm/sec TR max alan: 375.0 cm/sec TR max P.2 mmHg ECHO/Echo Complete W/ Contrast Interpretation Summary Mildly dilated left ventricle. Moderate concentric left ventricular hypertrophy. The estimated ejection fraction is 34 %. There is moderate global hypokinesis of the left ventricle. The left atrium is moderately enlarged. Pulmonary artery systolic pressure is 60 mmHg. Mild-Moderate (1-2+) aortic valve insufficiency. Stage 3 diastolic dysfunction. Mild aortic stenosis. Contrast injection was performed. Ordering Physician: Ellie Acevedo Referring Physician: Hayley Avendaño Performed By: Ros Hicks RDCS, RVT
--- NOTE | 2021-09-08 15:19 | US_ITS ---
STUDY: RENAL ULTRASOUND - COMPLETE REASON FOR EXAM: Male, 81 years old. CKD TECHNIQUE: Ultrasound evaluation of the kidneys was performed with real-time and static man-scale imaging. COMPARISON: None. FINDINGS: RIGHT KIDNEY: Normal location of the right kidney, which is normal in size. The right kidney measures 10.6 cm x 4.5 cm x 5.2 cm. There is a normal cortex of the right kidney. The renal cortex measures 1.5 cm. There is no right renal mass or cyst. There are no right renal calculi. There is no right hydronephrosis. DISTAL RIGHT URETER: There is non-visualization of the distal right ureter. There is no demonstrated right ureterovesical junction calculus. There is a visualized right ureteral jet. LEFT KIDNEY: Normal location of the left kidney, which is normal in size. The left kidney measures 11.2 cm x 4.4 cm x 5 cm. There is a normal cortex of the left kidney. The renal cortex measures 1.7 cm. There is a 1.8 cm x 1.8 cm x 1.5 cm cyst in the lower pole. There are no left renal calculi. There is no left hydronephrosis. DISTAL LEFT URETER: There is non-visualization of the distal left ureter. There is no demonstrated left ureterovesical junction calculus. There is a visualized left ureteral jet. BLADDER: The distended urinary bladder has a volume of 451 ml. There is a normal wall thickness of the distended urinary bladder. There is no demonstrated mass within the urinary bladder. There are no demonstrated bladder calculi. US/Kidney and Bladder IMPRESSION: Small cyst in the lower pole of the left kidney. Electronically Signed: Gavin Salazar MD at 14:13 EDT , Service support ,
--- NOTE | 2021-09-08 16:04 | PCS.PANDOC ---
PANDEMIC DOCUMENTATION INITIATED: Date: 06/30/2021 Time: 190
[2021-09-08 16:24] LABS: Troponin-I HS 84 pg/mL (3.0-78.0)
[2021-09-08] MEDS: Furosemide 40 MG/4 ML Vial IV (17:30)
[2021-09-08] MEDS: 0.9% Saline Lock 10 ML Syringe IV (17:31)
[2021-09-08 20:57] LABS: Troponin-I HS 85 pg/mL (3.0-78.0)
[2021-09-08] MEDS: hydrALAZINE 50 MG Tablet 100 MG PO (21:45)
[2021-09-08] MEDS: Carvedilol 12.5 MG Tablet PO (21:45)
[2021-09-08] MEDS: Isosorbide DN 20 MG Tablet PO (21:45)
[2021-09-08] MEDS: Atorvastatin Calcium 40 MG Tablet PO (21:45)
[2021-09-08] MEDS: APIXABAN 2.5 MG TABLET PO (21:46)
[2021-09-08] MEDS: Mirtazapine 30 MG Tablet 45 MG PO (21:46)
[2021-09-09] VITALS (14 sets, daily range): BP systolic 135–158; BP diastolic 52–95; PULSE 45–78; RESP 18–19; TEMP 36.4–36.8; O2SAT 96–99
[2021-09-09] MEDS: Isosorbide DN 20 MG Tablet PO ×3 (06:17→20:26)
[2021-09-09] MEDS: hydrALAZINE 50 MG Tablet 100 MG PO ×2 (06:17→14:39)
[2021-09-09 07:28] LABS: Absolute Neutrophil Count 4.4 X10^3/uL (2.0-7.7); Basophil# 0.09 X10^3/uL; Basophil% 1.3 % (0-1); Eosinophil# 0.29 X10^3/uL; Eosinophils% 4.1 % (0-5); Hematocrit 38.6 % (40-54); Hemoglobin 12.1 g/dL (13.0-16.5); Lymphocyte % 15.6 % (19-41); Mean Corp Hgb Conc 31.3 g/dL (32-36); Mean Corpuscular Hgb 27.7 pg (27.0-32.0); Mean Corpuscular Volume 88.3 fL (80-94); Monocyte# 1.19 X10^3/uL; Monocyte% 16.8 % (0-10); NRBC Flagged by Analyzer 0 % (0-5); Neutrophil # 4.38 X10^3/uL (2.7-7.7); Neutrophil % 61.9 % (47-70); Platelet Count 197 K/mm3 (150-450); RBC Distribution Width CV 15.1 % (11.6-14.6); RBC Distribution Width SD 48.9 fl (35.1-43.9); Red Blood Count 4.37 M/mm3 (4.6-6.2); White Blood Count 7.1 K/mm3 (4.4-11.0)
[2021-09-09 08:23] LABS: ALB/GLOB Ratio 0.8 RATIO (0.9-2.4); AST(SGOT) 21 U/L (15-37); Alanine Aminotransfer ALT/SGPT 22 U/L (16-61); Albumin, Serum 2.6 g/dL (3.2-5.0); Alkaline Phosphatase 55 U/L (45-117); Anion Gap 11 (5-15); BUN 29 mg/dL (7-18); BUN/Creat Ratio 12.8 RATIO (10-20); Calcium,Total 8.3 mg/dL (8.5-10.1); Chloride 106 mmol/L (98-107); Cholesterol 118 mg/dL (200); Creatinine, Serum 2.26 mg/dL (0.70-1.30); EST Glomerular Filtration Rate 30 mL/min (>60); Est Glom Filt Rate - Afr Amer 36 mL/min (>60); Estimated Creatinine Clearance 21.92 ml/min; Globulin 3.2 g/dL (2.2-4.2); Glucose 113 mg/dL (74-106); High Density Lipoprotein 37 mg/dL; Magnesium 1.9 mg/dL (1.6-2.6); Phosphorus 3.5 mg/dL (2.5-4.9); Potassium 3.2 mmol/L (3.5-5.1); Protein, Total 5.8 g/dL (6.4-8.2); Sodium Level 144 mmol/L (136-145); Thyroid Stim Hormone (TSH) 1.68 uIU/mL (0.358-3.74); Triglycerides 86 mg/dL; Very Low Density Lipoprotein 17 mg/dL (5-40)
[2021-09-09] MEDS: Leflunomide 10 MG TABLET 5 MG PO (09:45)
[2021-09-09] MEDS: Calcium (Elemental) 500 MG Tablet PO (09:47)
[2021-09-09] MEDS: Aspirin 81 MG TAB.CHEW PO (09:47)
[2021-09-09] MEDS: APIXABAN 2.5 MG TABLET PO ×2 (09:47→20:27)
[2021-09-09] MEDS: Tamsulosin HCl 0.4 MG Capsule PO (09:47)
[2021-09-09] MEDS: Carvedilol 12.5 MG Tablet PO ×2 (09:48→20:26)
[2021-09-09] MEDS: Hydroxychloroquine 200 MG Tablet PO (09:48)
[2021-09-09] MEDS: Furosemide 40 MG/4 ML Vial IV ×2 (09:48→17:23)
[2021-09-09] MEDS: Pantoprazole Sodium 40 MG Tablet PO (09:48)
[2021-09-09] MEDS: Ferrous Sulfate 325 MG Tablet PO (09:49)
[2021-09-09] MEDS: 0.9% Saline Lock 10 ML Syringe IV ×2 (09:50→17:24)
--- NOTE | 2021-09-09 11:20 | CASEMGMT ---
JOSE PENA assessment: Face to Face with patient for initial transition planning/care coordination assessment. RN JEAN introduced self and role at [facility], pt voices understanding and consents to assessment. Pt is sitting up in bed on 2L nc in no distress. Pt is A/Ox4 and answers all questions appropriately. Care providers, pharmacy, and demographics verified. Presentation: Pt c/o increased SOB and some diarrhea Admitting dx: Acute CHF PCP: Kateryna Specialists: López, cardio; paloma Beltrán Preferred Pharmacy: [facility] Insurance: [facility] Prescription Benefit: Yes Living Will/HPOA: Pt has LW/HPOA and is aware that they are on file at [facility]. Pt's son, Donte Mendieta, is HPOA. LNOK: Donte Mendieta, son; Leela Mccarthy, granddaughter Living Arrangements: Pt lives alone in apartment with 4-5 steps in and states no concerns at home. Pt's son lives next door and granddaughter lives down the street. Pt is independent with ADL's. Transportation: Pt states son drives and states no transportation concerns. DME/HHC: Pt states has oxygen concentrator 'from a long time ago' and does not remember who provided it. Pt states does not have have portable tanks and has not worn oxygen 'in a long time.' Pt states no further DME. CM to follow for home oxygen need/new order. Pt is active with [facility] and they tried to get pt into to see PCP on 09/08 but pt was not able to make it until appt time. Pt states no hx of SNF but has had HHC in past. Pt states no concerns with going home at time of discharge. Pt is retired. Pt states does not smoke cigarettes or drink ETOH. Pt voices no further concerns/needs. CM to follow for any further discharge planning/needs. Advised pt to ask for CM if any further questions/concerns/needs arise, voices understanding. Pt Goal: Home Plan: Home, pending home oxygen testing, therapy evingrid. Chelsi GARCIA CM
--- NOTE | 2021-09-09 14:28 | CASEMGMT ---
Pt qualifies for palliative referral per palliative screening tool and Dr. Herrera is agreeable. Referral faxed and order placed. Chelsi GARCIA CM
--- NOTE | 2021-09-09 17:03 | CHAPLAIN ---
Type of Pastoral Visit _x__ Initial Visit ___ Follow-up Visit ___ On-call Visit ___ General Patient Visit ___ Spiritual Assessment ___ Family Conference ___ Bereavement ___ Rapid Response ___ Code Blue ___ Other (describe below) Pastoral Care Referral From _x__ Patient ___ Family ___ Nurse ___ Physician ___ Hydraulic Modeling Engineer ___ Brick Washer ___ Other (describe below) Sacrament/Intervention _x__ Active listening ___ Anointing ___ Gnosticism ___ Bereavement ___ Communion _x__ Katharine exploration ___ _x__ Life review _x__ Prayer ___ Reconciliation ___ Sacrament of Sick _x__ Supportive presence ___ Wedding ___ Other (describe below) Pastoral Comments patient is welcoming, talkative, and free to speak about his katharine and support; pt reads the Bible and studies it for his encouragement; pt concern is more for his family and how they respond to God; pt admits that he had some difficulty this morning with his health; pt welcomes prayer along with presence of this regional sales director
--- NOTE | 2021-09-09 18:20 | PCM.PN.HOSP ---
Subjective Subjective Patient was seen and examined today, he does not complain of any shortness of breath or chest discomfort. Patient's echocardiogram today showed an EF of 34% with moderate pulmonary hypertension. At the time of this dictation, patient is on 1 L of oxygen and he is at 99% pulse ox. Objective Data Objective Data Vital Signs: Vital Signs Temp Pulse Resp BP Pulse Ox 97.6 F L 75 18 152/74 H 99 09/09/21 14:35 09/09/21 15:00 09/09/21 14:35 09/09/21 14:39 09/09/21 14:35 Oxygen Flow Rate (L/min) 1 Oxygen Delivery Method Nasal Cannula Weight: 87.5 kg Body Mass Index (BMI) 32.1 Intake & Output: Intake and Output for Last 24 Hours 09/07/21 09/08/21 09/09/21 23:59 23:59 23:59 Intake Total 360 / 360 480 / 480 Output Total 1200 / 1200 775 / 775 Balance -840 / -840 -295 / -295 Lab / Micro Data Result Diagrams: 09/09/21 06:35 09/09/21 06:35 Labs: Laboratory Results - last 24 hr 09/08/21 19:54: Troponin I High Sens 85 H 09/09/21 06:35: WBC 7.1, RBC 4.37 L, Hgb 12.1 L, Hct 38.6 L, MCV 88.3, MCH 27.7, MCHC 31.3 L, RDW Std Deviation 48.9 H, RDW Coeff of Saloni 15.1 H, Plt Count 197, MPV 11.0, Immature Gran % (Auto) 0.300, Neut % (Auto) 61.9, Lymph % (Auto) 15.6 L, [place] % (Auto) 16.8 H, Eos % (Auto) 4.1, Baso % (Auto) 1.3 H, Absolute Neuts (auto) 4.4, Absolute Lymphs (auto) 1.10, Nucleated RBC % 0 09/09/21 06:35: Sodium 144, Potassium 3.2 L, Chloride 106, Carbon Dioxide 27.0, Anion Gap 11, BUN 29 H, Creatinine 2.26 H, Estim Creat Clear Calc 21.92, Est GFR (MDRD) Af Amer 36 L, Est GFR (MDRD) Non-Af 30 L, BUN/Creatinine Ratio 12.8, Glucose 113 H, Calcium 8.3 L, Phosphorus 3.5, Magnesium 1.9, Total Bilirubin 0.50, AST 21, ALT 22, Alkaline Phosphatase 55, Total Protein 5.8 L, Albumin 2.6 L, Globulin 3.2, Albumin/Globulin Ratio 0.8 L, Triglycerides 86, Cholesterol 118, LDL Cholesterol 64, VLDL Cholesterol 17, HDL Cholesterol 37 L, TSH 1.68 Micro: Microbiology 09/09/21 10:35 Sputum, Expectorated/Coughed Gram Stain - Final 09/09/21 09:10 Stool Enteric Bacteriology - Final 09/09/21 09:10 Stool C. difficile GDH Antigen & Toxins - Final 09/09/21 09:10 Stool C. difficile DNA Amplification - Final 09/08/21 19:44 Mucosa - Nasopharyngeal Respiratory Panel (PCR) - Final 09/08/21 13:00 Nasal Secretion SARS-CoV-2 Antigen (Rapid) - Final Radiography Diagnostic Testing: Radiology Impression Renal Ultrasound 09/08/21 15:19 IMPRESSION: Small cyst in the lower pole of the left kidney. Electronically Signed: Gavin Salazar MD at 14:13 EDT , Service support , Physical Exam Const alert, oriented x3, no apparent distress and healthy appearing General Appearance: cooperative, well kempt and well developed Orientation / Consciousness: awake, oriented to person, oriented to place and oriented to time HEENT normocephalic, head/scalp atraumatic and moist oral mucous membranes Head and Scalp: normocephalic Eyes PERRL, EOMs intact bilaterally and conjunctivae normal Neck nuchal rigidity, supple, no JVD, thyroid normal and no carotid bruits General: trachea midline Resp normal respiratory effort, no retractions, no use of accessory muscles and clear to auscultation bilaterally Auscultation: Negative for rales, rhonchi or wheezes Cardio no murmurs, no rub and no gallops Cardio Narrative: Patient has paced rhythm GI normal to inspection, nondistended, normoactive bowel sounds, soft to palpation, non-tender and non-distended Extremity no clubbing, cyanosis or edema Skin no rashes or lesions noted General Skin Exam: no breakdown Neuro oriented x3, CN's II-XII intact bilaterally, no focal motor deficits and no sensory deficits noted Sensorium / Orientation: awake and alert Speech: speech normal Psych thought process normal and affect normal Assessment & Plan Assessment/Plan (1) CHF, acute: PLAN: 1. Acute on chronic systolic congestive heart failure-patient will remain on IV Lasix at this time #2 acute hypoxic respiratory failure-oxygen will be weaned if possible #3 aortic stenosis-mild #4 coronary artery disease-stable #5 pulmonary hypertension #6 hyperlipidemia Charges/Coding Visit Charges Inpatient E&M: 62658 Subs Hosp L2
[2021-09-09] MEDS: Atorvastatin Calcium 40 MG Tablet PO (20:27)
[2021-09-09] MEDS: Mirtazapine 30 MG Tablet 45 MG PO (20:27)
--- NOTE | 2021-09-09 20:37 | NURSING ---
MEDS GIVEN EARLY, PT REQUESTING TO SLEEP
[2021-09-10] VITALS (12 sets, daily range): BP systolic 143–161; BP diastolic 65–87; PULSE 52–77; RESP 16–18; TEMP 36.3–37.2; O2SAT 86–98
[2021-09-10] MEDS: Isosorbide DN 20 MG Tablet PO ×2 (05:57→13:32)
[2021-09-10] MEDS: hydrALAZINE 50 MG Tablet 100 MG PO (05:57)
[2021-09-10] MEDS: APIXABAN 2.5 MG TABLET PO (09:38)
[2021-09-10] MEDS: Leflunomide 10 MG TABLET 5 MG PO (09:38)
[2021-09-10] MEDS: Hydroxychloroquine 200 MG Tablet PO (09:38)
[2021-09-10] MEDS: Aspirin 81 MG TAB.CHEW PO (09:46)
[2021-09-10] MEDS: Furosemide 40 MG/4 ML Vial IV (09:47)
[2021-09-10] MEDS: Tamsulosin HCl 0.4 MG Capsule PO (09:47)
[2021-09-10] MEDS: Carvedilol 12.5 MG Tablet PO (09:47)
[2021-09-10] MEDS: Calcium (Elemental) 500 MG Tablet PO (09:47)
[2021-09-10] MEDS: Pantoprazole Sodium 40 MG Tablet PO (09:48)
[2021-09-10] MEDS: Loperamide 2 MG Capsule 4 MG PO (10:49)
[2021-09-10] MEDS: Ferrous Sulfate 325 MG Tablet PO (10:49)
[2021-09-10] MEDS: Dicyclomine 10 MG Capsule 20 MG PO (10:49)
--- NOTE | 2021-09-10 11:07 | CASEMGMT ---
Addendum entered by Dottie Pardo 09/10/21 14:09: Per therapy, no therapy recommended for pt. Pt states has family support and voices no further questions/concerns/needs. Chelsi GARCIA CM Original Note: Pt does not qualify for any home oxygen at this time. CM to follow. Chelsi GARCIA CM
--- NOTE | 2021-09-10 11:27 | PCM.CONS.P ---
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 Palliative services discussed with patient and unsure of need at this time. Agrees to have Liaison call his granddaughter Leela at discharge at [phone]. If Palliative follows, plan would be as follows: 1) Dyspnea multifactorial but most likely related to CHF: Consider Nephrology outpatient consult due to trending of creatinine. Continue follow up with Cardiology. No current extremity edema and dyspnea is improved only requiring oxygen at bedtime 1-[address] Dawn in [place]. Encourage daily weights, fluid restriction and dietary guidelines if needed at discharge. Palliative would monitor symptoms and provide education of the above. 2) CAD, BPH, DM, afib, HTN, RA: complicates overall management, recovery and prognosis. Defer to PCP and specialist Thank you for the opportunity to participate in this patient's care, please do not hesitate to contact [facility] with any further questions or concerns. Palliative direct line is [phone]. Greater than 50% of F2F visit dedicated to education and counseling of palliative care services, medications, comorbid conditions and potential assistance with management, and plan of care moving forward. Agrees to have Liaison call his granddaughter Leela at discharge at [phone]. Time in 11:11 AM Time out 11:57 AM HPI Consult Data Date of Consult: 09/10/21 HPI Narrative HPI Narrative: JUVENTINO MENDIETA, is a 81 M who was referred to [facility] for hospitalization for dyspnea worsening over the last several days prompting an ER visit and hospitalization on 09/08. He had been wearing oxygen that his granddaughter brought to him with some improvement. Nephrology was decreasing his Lasix due to worsening kidney function,. Covid 19 test was negative. Denies any cough or accompanying symptoms of infection. He did have some loose stool. EKG Ventricular-paced rhythm with frequent Premature ventricular complexes. ECHO showed moderate LV hypertrophy with EF of 34%, PAH is 60mm Hg. mild-moderate aortic valve inefficiency and stage 3 distolic dysfunction, Chest X ray shows some mild CHF. His BMP shows 3042.5, normal electrolytes but an elevated BUN and creatinine at 30 and 2.33. It appears baseline serum creatinine has been climbing over the last year and runs 1.6-1.9. His initial troponin was just slightly elevated at 93. He denied any sick contacts. He stays in and does not go out regularly. He was given 20mg of IV Lasix in the ER then admitted for further evaluation and treatment. Seen today in room on PCU. Noted using his incentive spirometer. Alert and oriented and pleasant. Mood is pleasant and upbeat. Reports that he is feeling well and that he only needs 1-2 liters of Oxygen at night. No dyspnea noted. Does report a few loose stools that were negative for C diff. and voices concern about that continuing at home. Palliative services discussed and symptoms that Palliative manages. Feels that he would not need Palliative at this time. States Palliative can call his granddaughter Leela and see what she thinks. Palliative business card left with patient. Reports that he has been doing arm exercises and leg lifts for strengthening. Lungs are clear. Denies any complaints at this time. PCP: Page, Specialists: [facility] cardio; paloma Beltrán, Preferred Pharmacy: [facility]. Living Will/HPOA: Pt has LW/HPOA and is aware that they are on file at [facility]. Pt's son, Donte Mendieta, is HPOA. Pt lives alone in apartment with 4-5 steps in and states no concerns at home. Pt's son lives next door and granddaughter lives down the street. Pt is independent with ADL's. Pt states son drives and states no transportation concerns. Pt states has oxygen concentrator 'from a long time ago' and does not remember who provided it. Pt states does not have have portable tanks and has not worn oxygen 'in a long time.' Pt states no further DME. CM to follow for home oxygen need/new order. Pt is active with [facility] and they tried to get pt into to see PCP on 09/08 but pt was not able to make it until appt time. Pt states no hx of SNF but has had HHC in past. [facility] Medical History Acute respiratory failure LUCAS (acute kidney injury) Amiodarone pulmonary toxicity Aortic valve disease Atrial fibrillation Bilateral lower extremity edema BPH (benign prostatic hyperplasia) BPH (benign prostatic hyperplasia) CAD (coronary artery disease) CHF, acute Congestive heart failure COPD (chronic obstructive pulmonary disease) Coronary artery disease Diabetes mellitus Diabetes mellitus, type II Finger pain, left Finger pain, right Heart failure with reduced ejection fraction History of atrial fibrillation History of PSVT (paroxysmal supraventricular tachycardia) Hyperlipidemia Hypertension Lower leg edema Pneumonia Pulmonary fibrosis PVT (paroxysmal ventricular tachycardia) Rheumatoid arthritis Shortness of breath Tinea manus Tinea unguium Toe pain, left Toe pain, right Home Medications aspirin 81 mg PO DAILY@0800 03/10/14 [History Last Taken 09/08/21] atorvastatin 40 mg PO QHS #30 tab 06/22/17 [Rx Last Taken 09/07/21] carvedilol 12.5 mg PO BID #60 06/22/17 [Rx Last Taken 09/08/21] pantoprazole 40 mg PO DAILY #30 06/22/17 [Rx Last Taken 09/08/21] ferrous sulfate 325 mg PO DAILY 09/26/20 [History Last Taken 09/08/21] hydroxychloroquine 200 mg PO DAILY 09/26/20 [History Last Taken 09/08/21] tamsulosin 0.4 mg PO DAILY 09/26/20 [History Last Taken 09/08/21] finasteride 5 mg PO DAILY 01/14/21 [History Last Taken 09/08/21] leflunomide [Arava] 5 mg PO DAILY 05/22/21 [History Last Taken 09/08/21] Eliquis 2.5 mg PO BID 09/08/21 [History Last Taken 09/08/21] SIMPHONI 1 dose IV BOLUS QMONTH 09/08/21 [History Last Taken 1 Month Ago ~08/09/21] acetaminophen 500 mg PO Q6H PRN 09/08/21 [History Last Taken 09/07/21] calcium carbonate 500 mg PO DAILY 09/08/21 [History Last Taken 09/08/21] hydralazine 100 mg PO TID 09/08/21 [History Last Taken 09/08/21] isosorbide dinitrate 20 mg PO TID 09/08/21 [History Last Taken 09/08/21] mirtazapine 45 mg PO DAILY 09/08/21 [History Last Taken 09/08/21] tramadol 50 mg PO BID PRN 09/08/21 [History Last Taken Unknown] dicyclomine 20 mg PO 4X/DAY PRN PRN #30 cap 09/10/21 [Rx Last Taken Unknown] lisinopril 20 mg PO DAILY #0 tab 09/10/21 [Rx Last Taken 09/08/21] potassium chloride 20 meq PO BID #60 tab 09/10/21 [Rx Last Taken Unknown] torsemide 20 mg PO BID #60 tab 09/10/21 [Rx Last Taken Unknown] Allergy/AdvReac Type Severity Reaction Status Date / Time amiodarone Allergy Mild PT UNSURE Verified 09/08/21 12:12 OF REACTION simvastatin Allergy Mild Other Verified 09/08/21 12:12 hydralazine Allergy PT UNSURE Verified 09/08/21 12:12 OF REACTION Penicillins Allergy Rash Verified 09/08/21 12:12 rosuvastatin [From Crestor] Allergy PT UNSURE Verified 09/08/21 12:12 OF REACTION Family History Other CAD (coronary artery disease) Hypertension Seizures Surgical History History of cholecystectomy (~01/2021) Hx laparoscopic cholecystectomy S/P CABG (coronary artery bypass graft) S/P lumbar fusion S/P PTCA (percutaneous transluminal coronary angioplasty) Social History current occupational status: retired Smoking Status: Never smoker alcohol intake: never substance use type: does not use ROS Constitutional Constitutional: Denies fatigue or frequent falls ENT HEENT: Denies dizziness, dysphagia, ear pain or nasal discharge Cardiovascular Cardiovascular: Denies cold extremities, cyanosis, dyspnea at rest, dyspnea on exertion, edema or numbness in extremities Respiratory/Chest Respiratory/Chest: Denies cough, excessive phlegm production, inability to speak or shortness of breath at rest Gastrointestinal Gastrointestinal: Reports diarrhea; Denies abdominal pain or fecal incontinence Musculoskeletal Musculoskeletal: Reports none Integumentary Integumentary: Reports none Neurologic Neurologic: Denies abnormal movements, confusion, frequent falls or numbness Psychiatric Psychiatric: Reports none Physical Exam Const alert, oriented x3, no apparent distress, healthy appearing and well nourished General Appearance: cooperative and comfortable Exam Limitations: no limitations HEENT normocephalic and head/scalp atraumatic Mouth: oral and palatal mucosa normal Eyes General Eye: normal appearance of both eyes Sclera: sclera normal EOM: EOM abnormal Neck full ROM and supple Lymph Lymphatic: no lymphadenopathy noted Chest inspection of chest normal Chest: symmetrical chest wall rise Resp normal respiratory effort and normal air movement Effort and Inspection: able to speak in complete sentences Auscultation: clear to auscultation bilaterally; Negative for crackles, rhonchi or wheezes Cardio regular rate, regular rhythm, S1 normal heart sound and S2 normal heart sound Heart Sounds: murmur GI normal to inspection, nondistended, normoactive bowel sounds Extremity normal to inspection, full ROM and no clubbing, cyanosis or edema Skin General Skin Exam: no breakdown Lesions: no lesions Rashes: no rashes Neuro CN's II-XII intact bilaterally
--- NOTE | 2021-09-10 12:33 | PCM.DC ---
Discharge Instructions Diet Discharge Diet: No restrictions Activity Discharge Activity: Return to Normal Activity Weight Bearing Status: Full weight bearing Follow Up Care Test Results: Test results from this visit will be discussed in further detail at your follow-up appointment, if applicable. Discharge Plan Admission Admit Date/Time: 09/08/21 14:24 Primary Reason for Your Visit: congestive heart failure Attending Provider: Colt Herrera Primary Care Provider: Samuel Avendaño Instructions Additional Instructions / Restrictions: You may take Imodium 2 tablets every 4 hours as needed for diarrhea, this is an [id number] medication The Leflunomide you are taking can cause diarrhea Discharge Orders/Prescriptions Prescriptions: New dicyclomine 10 mg Capsule 20 mg PO 4X/DAY PRN PRN (Reason: diarrhea) Qty: 30 RF: 0 torsemide 20 mg tablet 20 mg PO BID Qty: 60 RF: 0 Continued aspirin 81 MG tablet,chewable 81 mg PO DAILY@0800 RF: 0 atorvastatin 40 MG tablet 40 mg PO QHS Qty: 30 RF: 0 carvedilol 12.5 MG tablet 12.5 mg PO BID Qty: 60 RF: 0 pantoprazole 40 MG tablet 40 mg PO DAILY Qty: 30 RF: 0 tamsulosin 0.4 MG capsule 0.4 mg PO DAILY RF: 0 ferrous sulfate 325 MG tablet 325 mg PO DAILY RF: 0 hydroxychloroquine 200 MG tablet 200 mg PO DAILY RF: 0 finasteride 5 MG tablet 5 mg PO DAILY RF: 0 leflunomide [Arava] 10 mg Tablet 5 mg PO DAILY RF: 0 tramadol 50 mg tablet 50 mg PO BID PRN (Reason: Pain) RF: 0 mirtazapine 45 mg tablet 45 mg PO DAILY RF: 0 Eliquis 2.5 mg tablet 2.5 mg PO BID RF: 0 SIMPHONI 1 dose IV BOLUS QMONTH RF: 0 acetaminophen 500 mg Tablet 500 mg PO Q6H PRN (Reason: PAIN) RF: 0 calcium carbonate 500 mg calcium (1,250 mg) Tablet 500 mg PO DAILY RF: 0 hydralazine 100 mg tablet 100 mg PO TID RF: 0 isosorbide dinitrate 20 mg tablet 20 mg PO TID RF: 0 Changed lisinopril 20 mg tablet 20 mg PO DAILY Qty: 0 RF: 0 potassium chloride 20 mEq tablet extended release 20 meq PO BID Qty: 60 RF: 0 Discontinued furosemide [Lasix] 20 mg tablet 20 mg PO DAILY RF: 0 Referrals / Follow Up: Any Acevedo DO [STAFF PHYSICIAN] - See Referral Note (Sep 17, 1015 am) Samuel Avendaño MD [Primary Care Provider] - Within 1 Week (you will need a repeat BMP lab test done) Joaquín Dawn MD [NON-STAFF] - Within 2 Weeks Disposition Disposition (needs filled in before D/C Order can be placed): Home, Self Care
[2021-09-10 13:07] LABS: Anion Gap 7 (5-15); BUN 23 mg/dL (7-18); Chloride 106 mmol/L (98-107); EST Glomerular Filtration Rate 32 mL/min (>60); Est Glom Filt Rate - Afr Amer 39 mL/min (>60); Estimated Creatinine Clearance 23.59 ml/min; Glucose 217 mg/dL (74-106); Potassium 2.9 mmol/L (3.5-5.1); Sodium Level 142 mmol/L (136-145)
[2021-09-10] MEDS: Potassium Chloride Oral Tablet 20 MEQ 60 MEQ PO (13:32)
--- NOTE | 2021-09-10 14:40 | PHA.DC.MC ---
Pharmacy Service has performed discharge medication reconciliation and counseling for this patient. 1. DICYCLOMINE 20MG PO 4X/DAY PRN DIARRHEA 2. TORSEMIDE 20MG PO BID The patient's discharge medication list was reviewed for discrepancies and discrepancies were resolved. Home Medications aspirin 81 mg PO DAILY@0800 03/10/14 atorvastatin 40 mg PO QHS #30 tab 06/22/17 carvedilol 12.5 mg PO BID #60 06/22/17 pantoprazole 40 mg PO DAILY #30 06/22/17 ferrous sulfate 325 mg PO DAILY 09/26/20 hydroxychloroquine 200 mg PO DAILY 09/26/20 tamsulosin 0.4 mg PO DAILY 09/26/20 finasteride 5 mg PO DAILY 01/14/21 leflunomide [Arava] 5 mg PO DAILY 05/22/21 Eliquis 2.5 mg PO BID 09/08/21 SIMPHONI 1 dose IV BOLUS QMONTH 09/08/21 acetaminophen 500 mg PO Q6H PRN 09/08/21 calcium carbonate 500 mg PO DAILY 09/08/21 hydralazine 100 mg PO TID 09/08/21 isosorbide dinitrate 20 mg PO TID 09/08/21 mirtazapine 45 mg PO DAILY 09/08/21 tramadol 50 mg PO BID PRN 09/08/21 dicyclomine 20 mg PO 4X/DAY PRN PRN #30 cap 09/10/21 lisinopril 20 mg PO DAILY #0 tab 09/10/21 potassium chloride 20 meq PO BID #60 tab 09/10/21 torsemide 20 mg PO BID #60 tab 09/10/21 The patient was counseled on the following discharge medications and changes in medications for homegoing were reviewed. The Reason for Use, instructions for use, and potential side effects were reviewed for all new medications. The patient's questions regarding all of their medications were answered. The patient was able to verbally demonstrate an understanding of their discharge medications.
--- NOTE | 2021-09-10 19:11 | DS.PCM_ITS ---
Providers Date of Admission: 09/08/21 Date of Discharge: 09/10/21 Primary Care Physician: Dr. 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 Acute on chronic systolic congestive heart failure #2 acute hypoxic respiratory failure #3 aortic stenosis-mild #4 coronary artery disease #5 pulmonary hypertension #6 hyperlipidemia Medications at Discharge Home Medications aspirin 81 mg PO DAILY@0800 03/10/14 atorvastatin 40 mg PO QHS #30 tab 06/22/17 carvedilol 12.5 mg PO BID #60 06/22/17 pantoprazole 40 mg PO DAILY #30 06/22/17 ferrous sulfate 325 mg PO DAILY 09/26/20 hydroxychloroquine 200 mg PO DAILY 09/26/20 tamsulosin 0.4 mg PO DAILY 09/26/20 finasteride 5 mg PO DAILY 01/14/21 leflunomide [Arava] 5 mg PO DAILY 05/22/21 Eliquis 2.5 mg PO BID 09/08/21 SIMPHONI 1 dose IV BOLUS QMONTH 09/08/21 acetaminophen 500 mg PO Q6H PRN 09/08/21 calcium carbonate 500 mg PO DAILY 09/08/21 hydralazine 100 mg PO TID 09/08/21 isosorbide dinitrate 20 mg PO TID 09/08/21 mirtazapine 45 mg PO DAILY 09/08/21 tramadol 50 mg PO BID PRN 09/08/21 dicyclomine 20 mg PO 4X/DAY PRN PRN #30 cap 09/10/21 lisinopril 20 mg PO DAILY #0 tab 09/10/21 potassium chloride 20 meq PO BID #60 tab 09/10/21 torsemide 20 mg PO BID #60 tab 09/10/21 Hospital Course Operations None Procedures 2-D Echocardiogram Summary of Care Provided Minutes Spent on Discharge: 32 Hospital Course: This 81-year-old white male was seen in the emergency room at [facility] with a chief complaint of shortness of breath, or work-up in the emergency room included an EKG which showed a paced rhythm with some occasional PVCs. CBC was within normal limits, creatinine was slightly elevated at 2.33 and a BUN was 30. Patient's beta natruretic peptide was 3042, portable chest x-ray showed evidence of congestive heart failure. Patient was admitted to PCU, echocardiogram was obtained which showed reduced ejection fraction of 34% along with moderate pulmonary hypertension. 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 Patient had a recent echocardiogram performed approximately 2 months ago which showed an ejection fraction of 40%. On 09/10/2021, patient was seen and examined: On examination he appeared in good health and spirits. Vital signs as documented. Skin warm and dry and without overt rashes. Neck without JVD, neck was supple, trachea midline, thyroid was normal. Lungs clear bilaterally, normal air movement was noted. Heart exam notable for regular rhythm, normal sounds and absence of murmurs, rubs or gallops. Abdomen unremarkable and without evidence of organomegaly, masses, or abdominal aortic enlargement. Bowel sounds are present, abdomen is not dist ended. Extremities nonedematous, no cyanosis was noted, no clubbing was noted. Neuro: Cranial nerves II through XII are grossly intact, no focal motor deficits were noted, sensation to light touch and pinprick intact, motor exam 5/5 throughout. Psych: Patient is alert and oriented x3, he does not appear anxious or depressed, he does not appear agitated. Patient was seen and examined on 09/10/2021 and felt to be stable for discharge home. Weight / BMI Weight Weight: 84.3 kg Body Mass Index (BMI) 32.1 ABG / Lab / Microbiology Data Result Diagrams: 09/09/21 06:35 09/10/21 12:08 Laboratory: Laboratory Results - last 24 hr 09/10/21 12:08: Sodium 142, Potassium 2.9 L, Chloride 106, Carbon Dioxide 29.0, Anion Gap 7, BUN 23 H, Creatinine 2.10 H, Estim Creat Clear Calc 23.59, Est GFR (MDRD) Af Amer 39 L, Est GFR (MDRD) Non-Af 32 L, BUN/Creatinine Ratio 11.0, Glucose 217 H, Calcium 8.0 L Microbiology: Microbiology 09/09/21 10:35 Sputum, Expectorated/Coughed Gram Stain - Final 09/09/21 10:35 Sputum, Expectorated/Coughed Respiratory Culture - Preliminary Appears to be normal respiratory eliseo. Further studies to follow. 09/09/21 09:10 Stool Enteric Bacteriology - Final 09/09/21 09:10 Stool C. difficile GDH Antigen & Toxins - Final 09/09/21 09:10 Stool C. difficile DNA Amplification - Final 09/08/21 19:44 Mucosa - Nasopharyngeal Respiratory Panel (PCR) - Final 09/08/21 13:00 Nasal Secretion SARS-CoV-2 Antigen (Rapid) - Final D/C Instructions Discharge Diet: No restrictions Weight Bearing Status: Full weight bearing Meaningful Use Info Meaningful Use Diagnoses (Choose all that apply): CHF CHF RICARDO/ARB ordered at discharge?: Yes Documented LVEF (%): 34 Discharge Plan Admission Admit Date/Time: 09/08/21 14:24 Primary Reason for Your Visit: congestive heart failure Attending Provider: Colt Herrera Primary Care Provider: Samuel Avendaño Instructions Additional Instructions / Restrictions: You may take Imodium 2 tablets every 4 hours as needed for diarrhea, this is an [id number] medication The Leflunomide you are taking can cause diarrhea Discharge Orders/Prescriptions Prescriptions: New dicyclomine 10 mg Capsule 20 mg PO 4X/DAY PRN PRN (Reason: diarrhea) Qty: 30 RF: 0 torsemide 20 mg tablet 20 mg PO BID Qty: 60 RF: 0 Continued aspirin 81 MG tablet,chewable 81 mg PO DAILY@0800 RF: 0 atorvastatin 40 MG tablet 40 mg PO QHS Qty: 30 RF: 0 carvedilol 12.5 MG tablet 12.5 mg PO BID Qty: 60 RF: 0 pantoprazole 40 MG tablet 40 mg PO DAILY Qty: 30 RF: 0 tamsulosin 0.4 MG capsule 0.4 mg PO DAILY RF: 0 ferrous sulfate 325 MG tablet 325 mg PO DAILY RF: 0 hydroxychloroquine 200 MG tablet 200 mg PO DAILY RF: 0 finasteride 5 MG tablet 5 mg PO DAILY RF: 0 leflunomide [Arava] 10 mg Tablet 5 mg PO DAILY RF: 0 tramadol 50 mg tablet 50 mg PO BID PRN (Reason: Pain) RF: 0 mirtazapine 45 mg tablet 45 mg PO DAILY RF: 0 Eliquis 2.5 mg tablet 2.5 mg PO BID RF: 0 SIMPHONI 1 dose IV BOLUS QMONTH RF: 0 acetaminophen 500 mg Tablet 500 mg PO Q6H PRN (Reason: PAIN) RF: 0 calcium carbonate 500 mg calcium (1,250 mg) Tablet 500 mg PO DAILY RF: 0 hydralazine 100 mg tablet 100 mg PO TID RF: 0 isosorbide dinitrate 20 mg tablet 20 mg PO TID RF: 0 Changed lisinopril 20 mg tablet 20 mg PO DAILY Qty: 0 RF: 0 potassium chloride 20 mEq tablet extended release 20 meq PO BID Qty: 60 RF: 0 Discontinued furosemide [Lasix] 20 mg tablet 20 mg PO DAILY RF: 0 Referrals / Follow Up: Any Acevedo DO [STAFF PHYSICIAN] - See Referral Note (Sep 17, 1015 am) Samuel Avendaño MD [Primary Care Provider] - Within 1 Week (you will need a repeat BMP lab test done) Joaquín Dawn MD [NON-STAFF] - Within 2 Weeks Disposition Disposition (needs filled in before D/C Order can be placed): Home, Self Care Charges/Coding Visit Charges Inpatient E&M: 64993 Disch Hosp
--- NOTE | 2021-09-11 15:21 | CASEMGMT ---
JOSE PENA Discharge Follow-up Phone Call: FRANKGanesh: Bekah Strata: 3 Call Date: 09/11/21 Discharge Date: 09/10/21 Time of Call: 1518 Duration: 3 min Admitting Diagnosis: acute decompensated CHF JOSE PENA completed follow-up phone call after recent hospitalization. Patient states he is doing well and had no questions regarding discharge instructions. Patient states his granddaughter is assisting with medications and setting up his follow-up appts. Patient had no further questions or concerns at this time.
== END 2021-09-10 16:23 | disposition home or self-care (01) | DRG 291 ==
LOC: ED 14:09 → PCU 14:31
PROVIDERS: Admitting Provider Internal Medicine; Emergency Provider Emergency Medicine; PCP Family Medicine; Visit Provider Internal Medicine
DX: I13.0 Hypertensive heart and chronic kidney disease with heart failure and stage 1 through stage 4 chronic kidney disease, or unspecified chronic kidney disease (principal); I50.23 Acute on chronic systolic (congestive) heart failure; J96.01 Acute respiratory failure with hypoxia; I27.20 Pulmonary hypertension, unspecified; E11.22 Type 2 diabetes mellitus with diabetic chronic kidney disease; N18.32 Chronic kidney disease, stage 3b; Z20.822 Contact with and (suspected) exposure to COVID-19; I35.9 Nonrheumatic aortic valve disorder, unspecified; J44.9 Chronic obstructive pulmonary disease, unspecified; I25.10 Atherosclerotic heart disease of native coronary artery without angina pectoris; I48.91 Unspecified atrial fibrillation; M06.9 Rheumatoid arthritis, unspecified; E78.5 Hyperlipidemia, unspecified; K21.9 Gastro-esophageal reflux disease without esophagitis; N40.0 Benign prostatic hyperplasia without lower urinary tract symptoms; F32.A Depression, unspecified; Z79.82 Long term (current) use of aspirin; Z79.01 Long term (current) use of anticoagulants; Z79.899 Other long term (current) drug therapy; Z98.1 Arthrodesis status; Z98.61 Coronary angioplasty status; Z95.1 Presence of aortocoronary bypass graft; Z95.2 Presence of prosthetic heart valve
CPT/HCPCS: 36415; 71045; 76770; 80048; 80053; 80061; 83735; 83880; 84100; 84443; 84484; 85025; 85610; 87070; 87205; 87426; 87493; 87506; 87633; 93005; 93306; 94640; 97162; 97530; 99251; 99285; Q9957; A4216; C8929; G0463; J1940; J3490

== ENCOUNTER 2021-09-11 07:17 | Emergency (ER) | payer MEDICARE, OTHER, SELFPAY ==
[2021-09-11 07:18] VITALS: BP 120/73; PULSE 72; RESP 16; TEMP 36.8; O2SAT 95; BMI 32.3
--- NOTE | 2021-09-11 07:48 | EDS_ITS ---
HPI History of Present Illness Chief Complaint: Complaint Informant: patient Narrative Narrative: Patient is an 81-year-old male presenting with inability to urinate. Patient states has not been able to urinate since 10 PM last night. He states he does have a history of urinary retention as well as enlarged prostate. She states very painful and he feels that he needs to urinate. He is on Eliquis for history of atrial fibrillation. Denies any other complaints at this time. Does admit to significant suprapubic discomfort secondary to feeling that he needs to urinate. [facility] Medical History Acute respiratory failure LUCAS (acute kidney injury) Amiodarone pulmonary toxicity Aortic valve disease Atrial fibrillation Bilateral lower extremity edema BPH (benign prostatic hyperplasia) BPH (benign prostatic hyperplasia) CAD (coronary artery disease) CHF, acute Congestive heart failure COPD (chronic obstructive pulmonary disease) Coronary artery disease Diabetes mellitus Diabetes mellitus, type II Finger pain, left Finger pain, right Heart failure with reduced ejection fraction History of atrial fibrillation History of PSVT (paroxysmal supraventricular tachycardia) Hyperlipidemia Hypertension Lower leg edema Pneumonia Pulmonary fibrosis PVT (paroxysmal ventricular tachycardia) Rheumatoid arthritis Shortness of breath Tinea manus Tinea unguium Toe pain, left Toe pain, right Home Medications aspirin 81 mg PO DAILY@0800 03/10/14 [History Last Taken 09/08/21] atorvastatin 40 mg PO QHS #30 tab 06/22/17 [Rx Last Taken 09/07/21] carvedilol 12.5 mg PO BID #60 06/22/17 [Rx Last Taken 09/08/21] pantoprazole 40 mg PO DAILY #30 06/22/17 [Rx Last Taken 09/08/21] ferrous sulfate 325 mg PO DAILY 09/26/20 [History Last Taken 09/08/21] hydroxychloroquine 200 mg PO DAILY 09/26/20 [History Last Taken 09/08/21] tamsulosin 0.4 mg PO DAILY 09/26/20 [History Last Taken 09/08/21] finasteride 5 mg PO DAILY 01/14/21 [History Last Taken 09/08/21] leflunomide [Arava] 5 mg PO DAILY 05/22/21 [History Last Taken 09/08/21] Eliquis 2.5 mg PO BID 09/08/21 [History Last Taken 09/08/21] SIMPHONI 1 dose IV BOLUS QMONTH 09/08/21 [History Last Taken 1 Month Ago ~08/09/21] acetaminophen 500 mg PO Q6H PRN 09/08/21 [History Last Taken 09/07/21] calcium carbonate 500 mg PO DAILY 09/08/21 [History Last Taken 09/08/21] hydralazine 100 mg PO TID 09/08/21 [History Last Taken 09/08/21] isosorbide dinitrate 20 mg PO TID 09/08/21 [History Last Taken 09/08/21] mirtazapine 45 mg PO DAILY 09/08/21 [History Last Taken 09/08/21] tramadol 50 mg PO BID PRN 09/08/21 [History Last Taken Unknown] dicyclomine 20 mg PO 4X/DAY PRN PRN #30 cap 09/10/21 [Rx Last Taken Unknown] lisinopril 20 mg PO DAILY #0 tab 09/10/21 [Rx Last Taken 09/08/21] potassium chloride 20 meq PO BID #60 tab 09/10/21 [Rx Last Taken Unknown] torsemide 20 mg PO BID #60 tab 09/10/21 [Rx Last Taken Unknown] Allergy/AdvReac Type Severity Reaction Status Date / Time amiodarone Allergy Mild PT UNSURE Verified 09/11/21 07:19 OF REACTION simvastatin Allergy Mild Other Verified 09/11/21 07:19 hydralazine Allergy PT UNSURE Verified 09/11/21 07:19 OF REACTION Penicillins Allergy Rash Verified 09/11/21 07:19 rosuvastatin [From Crestor] Allergy PT UNSURE Verified 09/11/21 07:19 OF REACTION Family History Other CAD (coronary artery disease) Hypertension Seizures Surgical History History of cholecystectomy (~01/2021) Hx laparoscopic cholecystectomy S/P CABG (coronary artery bypass graft) S/P lumbar fusion S/P PTCA (percutaneous transluminal coronary angioplasty) Social History current occupational status: retired Smoking Status: Never smoker alcohol intake: never substance use type: does not use ROS ROS ED Constitutional Constitutional ED: Denies chills or fever(s) Cardiovascular Cardiovascular: Denies chest pain Respiratory/Chest Respiratory/Chest: Denies dyspnea Gastrointestinal Gastrointestinal: Denies nausea or vomiting Genitourinary Genitourinary ED: Reports abdominal discomfort and decreased urination; Denies dysuria or hematuria Musculoskeletal Musculoskeletal: Denies arthralgias or myalgias Neurologic Neurologic: Denies headache(s) or weakness Psychiatric Psychiatric: Denies depression EXAM Physical Exam Const Vital Signs: 09/11/21 07:18 Temperature 98.3 F Temperature Source Temporal Pulse Rate 72 Respiratory Rate 16 Blood Pressure 120/73 Blood Pressure Mean 88 Pulse Ox 95 Oxygen Delivery Method Room Air Positive well nourished and well developed General Appearance ED: well developed HEENT normocephalic and atraumatic Neck supple Resp normal respiratory effort and clear to auscultation bilaterally Cardio regular rate, regular rhythm and no murmurs GI GI Narrative: Abdominal distention the suprapubic region consistent with an implanted bladder. Associated tenderness in the suprapubic region. Palpation: soft Rectal Exam: tenderness Extremity normal to inspection General Extremety ED: Negative for edema General Extremity: Negative for edema Neuro oriented x3 and moves all extremities Sensorium / Orientation: alert Psych mental status grossly normal Skin Rashes: no rashes MDM MDM MDM Narrative Medical decision making narrative: Patient evaluated for difficulty urinating/inability to urinate. Presentation is consistent with acute urinary retention. Bladder scan only shows 35 cc of urine however bedside ultrasound shows a distended bladder. Hui catheter is placed patient is significant improvement of his symptoms. 800 cc of clear urine came out. Patient is not have any acute kidney injury associated with urinary retention. No signs of urinary tract infection. He has outpatient follow-up with Dr. Schmidt. He is encouraged to keep that and also follow-up with urology or his PCP in 1 week for Hui catheter removal. He is given education on Hui catheter care. Patient is counseled on signs and symptoms requiring return to the emergency room. Patient verbalizes agreement and understand this plan. Patient discharged home in stable and improved condition. Lab Data Attestation: I reviewed the patient's lab results. Labs: Laboratory Results - last 24 hr 09/11/21 09/11/21 09/11/21 08:00 08:00 08:00 WBC 8.2 RBC 4.83 Hgb 13.5 Hct 42.5 MCV 88.0 MCH 28.0 MCHC 31.8 L RDW Std Deviation 48.0 H RDW Coeff of Saloni 15.2 H Plt Count 220 MPV 11.4 Immature Gran % (Auto) 0.200 Neut % (Auto) 64.3 Lymph % (Auto) 14.6 L [place] % (Auto) 17.1 H Eos % (Auto) 2.7 Baso % (Auto) 1.1 H Absolute Neuts (auto) 5.3 Absolute Lymphs (auto) 1.20 Nucleated RBC % 0 Sodium 145 Potassium 3.2 L Chloride 108 H Carbon Dioxide 29.0 Anion Gap 8 BUN 24 H Creatinine 2.18 H Estim Creat Clear Calc 22.73 Est GFR (MDRD) Af Amer 37 L Est GFR (MDRD) Non-Af 31 L BUN/Creatinine Ratio 11.0 Glucose 98 Calcium 8.3 L Urine Color Yellow Urine Clarity Clear Urine pH 6.0 Ur Specific [place] 1.010 Urine Protein 30 H Urine Glucose (UA) Normal Urine Ketones Negative Urine Occult Blood Negative Urine Nitrite Negative Urine Bilirubin Negative Urine Urobilinogen Normal Ur Leukocyte Esterase Negative Urine RBC 0 SEEN Urine WBC 0-5 SEEN Ur Squamous Epith Cells 0-5 SEEN Urine Bacteria 0 SEEN Urine Mucus 0 SEEN Discharge Plan Triage Chief Complaint: Complaint ED Provider: Sandy Staton Dx/Rx/DC Orders Clinical Impression: Acute urinary retention Instructions: ED Hui Catheter, Care, ED Urinary Retention, Male Prescriptions: No Action aspirin 81 MG tablet,chewable 81 mg PO DAILY@0800 RF: 0 atorvastatin 40 MG tablet 40 mg PO QHS Qty: 30 RF: 0 carvedilol 12.5 MG tablet 12.5 mg PO BID Qty: 60 RF: 0 pantoprazole 40 MG tablet 40 mg PO DAILY Qty: 30 RF: 0 tamsulosin 0.4 MG capsule 0.4 mg PO DAILY RF: 0 ferrous sulfate 325 MG tablet 325 mg PO DAILY RF: 0 hydroxychloroquine 200 MG tablet 200 mg PO DAILY RF: 0 finasteride 5 MG tablet 5 mg PO DAILY RF: 0 leflunomide [Arava] 10 mg Tablet 5 mg PO DAILY RF: 0 tramadol 50 mg tablet 50 mg PO BID PRN (Reason: Pain) RF: 0 mirtazapine 45 mg tablet 45 mg PO DAILY RF: 0 Eliquis 2.5 mg tablet 2.5 mg PO BID RF: 0 SIMPHONI 1 dose IV BOLUS QMONTH RF: 0 acetaminophen 500 mg Tablet 500 mg PO Q6H PRN (Reason: PAIN) RF: 0 calcium carbonate 500 mg calcium (1,250 mg) Tablet 500 mg PO DAILY RF: 0 hydralazine 100 mg tablet 100 mg PO TID RF: 0 isosorbide dinitrate 20 mg tablet 20 mg PO TID RF: 0 dicyclomine 10 mg Capsule 20 mg PO 4X/DAY PRN PRN (Reason: diarrhea) Qty: 30 RF: 0 torsemide 20 mg tablet 20 mg PO BID Qty: 60 RF: 0 lisinopril 20 mg tablet 20 mg PO DAILY Qty: 0 RF: 0 potassium chloride 20 mEq tablet extended release 20 meq PO BID Qty: 60 RF: 0 Primary Care Provider: Samuel Avendaño Referrals: Samuel Avendaño MD [Primary Care Provider] - Roman Santana MD [STAFF PHYSICIAN] - (5-7 days for hui removal ) Disposition Disposition: Home, Self Care
[2021-09-11 08:10] LABS: Absolute Neutrophil Count 5.3 X10^3/uL (2.0-7.7); Basophil# 0.09 X10^3/uL; Basophil% 1.1 % (0-1); Eosinophil# 0.22 X10^3/uL; Eosinophils% 2.7 % (0-5); Hematocrit 42.5 % (40-54); Hemoglobin 13.5 g/dL (13.0-16.5); Lymphocyte % 14.6 % (19-41); Mean Corp Hgb Conc 31.8 g/dL (32-36); Mean Platelet Vol. 11.4 fl (6.2-12.0); Monocyte# 1.41 X10^3/uL; Monocyte% 17.1 % (0-10); NRBC Flagged by Analyzer 0 % (0-5); Neutrophil # 5.29 X10^3/uL (2.7-7.7); Neutrophil % 64.3 % (47-70); Platelet Count 220 K/mm3 (150-450); RBC Distribution Width CV 15.2 % (11.6-14.6); Red Blood Count 4.83 M/mm3 (4.6-6.2); White Blood Count 8.2 K/mm3 (4.4-11.0)
[2021-09-11 08:11] LABS: Bacteria 0 SEEN /hpf (None Seen); Mucous, Urine 0 SEEN /hpf (<or=2+); Red Blood Cells-Urine 0 SEEN /hpf (0-5)
[2021-09-11 08:13] LABS: Color, Urine Yellow (Yellow); Glucose, Dipstick Normal (Normal); Ketone-Dipstick Negative (Negative); Leukocyte Esterase-Dipstick Negative /ul (Negative); Nitrite-Dipstick Negative (Negative); Occult Blood-Urine Negative /ul (Negative); Protein-Dipstick 30 mg/dl (Negative); Urine Bilirubin Dipstick Negative (Negative); Urine Clarity Clear (Clear); Urine Urobilinogen Normal (Normal)
[2021-09-11 08:27] LABS: Squamous Epithelial Cells - UA 0-5 SEEN /hpf (0-5); White Blood Cells 0-5 SEEN /hpf (0-5)
[2021-09-11 08:28] LABS: Anion Gap 8 (5-15); BUN 24 mg/dL (7-18); Calcium,Total 8.3 mg/dL (8.5-10.1); Chloride 108 mmol/L (98-107); Creatinine, Serum 2.18 mg/dL (0.70-1.30); EST Glomerular Filtration Rate 31 mL/min (>60); Est Glom Filt Rate - Afr Amer 37 mL/min (>60); Estimated Creatinine Clearance 22.73 ml/min; Glucose 98 mg/dL (74-106); Potassium 3.2 mmol/L (3.5-5.1); Sodium Level 145 mmol/L (136-145)
== END 2021-09-11 08:59 | disposition home or self-care (01) ==
PROVIDERS: Emergency Provider Emergency Medicine; PCP Family Medicine
DX: N40.1 Benign prostatic hyperplasia with lower urinary tract symptoms (principal); R33.8 Other retention of urine; I11.0 Hypertensive heart disease with heart failure; I50.9 Heart failure, unspecified; J84.10 Pulmonary fibrosis, unspecified; I48.91 Unspecified atrial fibrillation; I25.10 Atherosclerotic heart disease of native coronary artery without angina pectoris; J44.9 Chronic obstructive pulmonary disease, unspecified; M06.9 Rheumatoid arthritis, unspecified; E11.9 Type 2 diabetes mellitus without complications; E78.5 Hyperlipidemia, unspecified; Z79.82 Long term (current) use of aspirin; Z79.01 Long term (current) use of anticoagulants; Z79.899 Other long term (current) drug therapy; Z95.1 Presence of aortocoronary bypass graft
CPT/HCPCS: 51702; 80048; 81001; 85025; 87086; 99283; A4216

== ENCOUNTER 2021-11-05 13:09 | Day surgery (SDC) | payer MEDICARE, OTHER, SELFPAY ==
[2021-11-05] VITALS (10 sets, daily range): BP systolic 130–160; BP diastolic 67–91; PULSE 69–73; RESP 16–18; TEMP 36.3–36.7; O2SAT 94–97; BMI 30.1
[2021-11-05 13:55] LABS: Bedside Glucose 125 mg/dL (70-110)
[2021-11-05] MEDS: Lactated Ringers 1,000 ML 15 ML IV ×2 (13:59→16:54)
--- NOTE | 2021-11-05 15:15 | PROS_PTH ---
PATIENT: JUVENTINO CERNA [place] [facility] [id number] AGE/SX: 81/M ROOM: RE11/05/[address]: Dr. Roman Santana MD : [id number] BED: DIS: 11/06/2021 SPEC #: [id number] RECD: 11/06/21 07:25 STATUS: MIKE RECheli #: [id number] AILYN: 11/05/21 15:[address]: Roman Santana DEPT: SURGICAL PATHOLOGY RECD BY: Judith Blackmon ENTERED: 11/06/21 08:30 SP TYPE: TURP OTHR DR: Dr. Sohail Avendaño MD Tissues: Prostate, NOS Procedures: Surgery Specimen Level IV HEADER OPERATION: Cysto, TUR prostate, Olympus PRE-OP DIAGNOSIS: Benign prostate hyperplasia, retention of urine, nocturia TISSUE SUBMITTED: Prostate tissue MICROSCOPIC DIAGNOSIS Prostate tissue, TUR: Benign prostatic hyperplasia, glandular and stromal type. SJ:benito 11/10/2021 MICROSCOPIC DESCRIPTION Slides are reviewed. GROSS DESCRIPTION Received is one container labeled with the patient's name and designated prostate tissue. The specimen consists of multiple irregular fragments of pink-collier, rubbery, soft tissue that in aggregate weigh 14.2 gm and measure in aggregate 6.5 x 6.5 x 1 cm. 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 / AM:benito 11/06/21 TC:5 CPT: 17608
--- NOTE | 2021-11-05 16:33 | HP.PCM_ITS ---
HPI - General HPI Narrative JUVENTINO CERNA, is a 81 M who presents for a TURP. [facility] Medical History (Updated 10/29/21 @ 14:28 by Cleopatra Agarwal) Acute respiratory failure LUCAS (acute kidney injury) Ambulates with cane Amiodarone pulmonary toxicity Anemia Aortic valve disease Arthritis Atrial fibrillation Back pain Bilateral lower extremity edema BPH (benign prostatic hyperplasia) BPH (benign prostatic hyperplasia) CAD (coronary artery disease) Cardiology follow-up encounter CHF, acute Congestive heart failure COPD (chronic obstructive pulmonary disease) Coronary artery disease Diabetes mellitus Diabetes mellitus, type II Fibromyalgia Finger pain, left Finger pain, right Gastric reflux Heart failure with reduced ejection fraction High cholesterol History of atrial fibrillation History of CHF (congestive heart failure) History of echocardiogram History of pacemaker History of PSVT (paroxysmal supraventricular tachycardia) History of renal disease History of steroid therapy History of stress test Hyperlipidemia Hypertension Loss of hearing Lower leg edema Non-smoker On home oxygen therapy Pneumonia Prostate disease Pulmonary fibrosis PVT (paroxysmal ventricular tachycardia) Rheumatoid arthritis Shortness of breath Shortness of breath on exertion Tinea manus Tinea unguium Toe pain, left Toe pain, right Weakness Wears glasses Home Medications aspirin 81 mg PO DAILY@0800 03/10/14 [History Last Taken 10/29/21] atorvastatin 40 mg PO QHS #30 tab 06/22/17 [Rx Last Taken 11/04/21] carvedilol 12.5 mg PO BID #60 06/22/17 [Rx Last Taken 11/05/21 07:00] pantoprazole 40 mg PO DAILY #30 06/22/17 [Rx Last Taken 11/05/21 07:00] ferrous sulfate 325 mg PO BID 09/26/20 [History Last Taken 11/04/21] hydroxychloroquine 200 mg PO DAILY 09/26/20 [History Last Taken 11/04/21] Eliquis 2.5 mg PO BID 09/08/21 [History Last Taken 10/29/21] SIMPHONI 1 dose IV BOLUS .QOMONTH 09/08/21 [History Last Taken 1 Month Ago ~08/09/21] acetaminophen 500 mg PO Q6H PRN 09/08/21 [History Last Taken 09/07/21] calcium carbonate 500 mg PO DAILY 09/08/21 [History Last Taken 11/04/21] hydralazine 100 mg PO TID 09/08/21 [History Last Taken 11/05/21 07:00] isosorbide dinitrate 20 mg PO TID 09/08/21 [History Last Taken 11/04/21] mirtazapine 45 mg PO DAILY 09/08/21 [History Last Taken 11/04/21] tramadol 50 mg PO BID PRN 09/08/21 [History Last Taken Unknown] lisinopril 20 mg PO DAILY #0 tab 09/10/21 [Rx Last Taken 11/05/21 07:00] potassium chloride 20 meq PO BID #60 tab 09/10/21 [Rx Last Taken 11/04/21] torsemide 20 mg PO BID #60 tab 09/10/21 [Rx Last Taken 11/05/21 07:00] ciprofloxacin HCl [Cipro] 500 mg PO BID #10 tab 11/05/21 [Rx Last Taken Unknown] Allergy/AdvReac Type Severity Reaction Status Date / Time amiodarone Allergy Mild PT UNSURE Verified 11/05/21 13:47 OF REACTION simvastatin Allergy Mild Other Verified 11/05/21 13:47 hydralazine Allergy PT UNSURE Verified 11/05/21 13:47 OF REACTION Penicillins Allergy Rash Verified 11/05/21 13:47 rosuvastatin [From Crestor] Allergy PT UNSURE Verified 11/05/21 13:47 OF REACTION Family History Other CAD (coronary artery disease) Hypertension Seizures Surgical History (Updated 10/29/21 @ 14:28 by Cleopatra Agarwal) History of cardiac catheterization History of cholecystectomy (~01/2021) History of coronary artery stent placement Hx of appendectomy Hx of bilateral cataract extraction S/P CABG (coronary artery bypass graft) S/P lumbar fusion S/P PTCA (percutaneous transluminal coronary angioplasty) Social History current occupational status: retired Smoking Status: Never smoker alcohol intake: never substance use type: does not use Vital Signs Vital Signs Vital Signs: 11/05/21 13:52 Temperature 97.3 F L Temperature Source Temporal Pulse Rate 70 Respiratory Rate 16 Respiratory Pattern Normal Blood Pressure 149/83 H Blood Pressure Mean 105 Blood Pressure Source Monitor Blood Pressure Position Semi-Fowlers Blood Pressure Location Left Arm Pulse Ox 97 Oxygen Delivery Method Room Air Weight Weight: 82.1 kg Body Mass Index (BMI) 30.1 Results Lab / Micro Data Labs: Laboratory Results - last 24 hr 11/05/21 13:44: POC Glucose 125 H
--- NOTE | 2021-11-05 16:33 | PCM.DC ---
Discharge Instructions Diet Discharge Diet: No restrictions Activity Discharge Activity: Return to Normal Activity and May Not Drive (while taking narcotic pain medications.) Dressing / Incision Call your doctor if you observe: Fever of 101 or Higher Follow Up Care Please Follow Up With: Roman Santana MD When: Call [phone] for an appointment Test Results: Test results from this visit will be discussed in further detail at your follow-up appointment, if applicable. Discharge Plan Admission Primary Reason for Your Visit: turp Attending Provider: Roman Santana Primary Care Provider: Samuel Avendaño Discharge Orders/Prescriptions Prescriptions: New ciprofloxacin HCl [Cipro] 500 mg tablet 500 mg PO BID Qty: 10 RF: 0 Continued atorvastatin 40 MG tablet 40 mg PO QHS Qty: 30 RF: 0 carvedilol 12.5 MG tablet 12.5 mg PO BID Qty: 60 RF: 0 pantoprazole 40 MG tablet 40 mg PO DAILY Qty: 30 RF: 0 ferrous sulfate 325 MG tablet 325 mg PO BID RF: 0 hydroxychloroquine 200 MG tablet 200 mg PO DAILY RF: 0 tramadol 50 mg tablet 50 mg PO BID PRN (Reason: Pain) RF: 0 mirtazapine 45 mg tablet 45 mg PO DAILY RF: 0 acetaminophen 500 mg Tablet 500 mg PO Q6H PRN (Reason: PAIN) RF: 0 calcium carbonate 500 mg calcium (1,250 mg) Tablet 500 mg PO DAILY RF: 0 hydralazine 100 mg tablet 100 mg PO TID RF: 0 isosorbide dinitrate 20 mg tablet 20 mg PO TID RF: 0 torsemide 20 mg tablet 20 mg PO BID Qty: 60 RF: 0 lisinopril 20 mg tablet 20 mg PO DAILY Qty: 0 RF: 0 potassium chloride 20 mEq tablet extended release 20 meq PO BID Qty: 60 RF: 0 Held aspirin 81 MG tablet,chewable 81 mg PO DAILY@0800 RF: 0 Hold Instructions: Resume on 11/19/21. Eliquis 2.5 mg tablet 2.5 mg PO BID RF: 0 Hold Instructions: Resume on 11/19/21. SIMPHONI 1 dose IV BOLUS .QOMONTH RF: 0 Hold Instructions: Resume on 11/19/21. Discontinued tamsulosin 0.4 MG capsule 0.8 mg PO DAILY RF: 0 finasteride 5 MG tablet 5 mg PO DAILY RF: 0 Referrals / Follow Up: Samuel Avendaño MD [Primary Care Provider] - Roman Santana MD [STAFF PHYSICIAN] - Disposition Disposition (needs filled in before D/C Order can be placed): Home, Self Care
--- NOTE | 2021-11-05 16:34 | PCM.OPRPT ---
Report of Operation Date of Procedure: 11/05/21 Pre-Operative Diagnosis: BPH Post-Operative Diagnosis: same Surgery/Procedure Performed:: TURP Description of Surgical Findings:: In the preoperative setting I discussed with the patient how the surgery would be done with expect afterwards. We discussed how a prostate resection is done and we discussed the risk of the surgery including, bleeding, infection, retrograde ejaculation, changes with ejaculation or intercourse,. We discussed the possibility that the resection of the prostate may not alleviate his urinary symptoms. We discussed the small risk of developing scar tissue along the urethral channel and strictures. We also discussed the chance of the prostate could grow back and he may need further surgery or treatment in the future for prostate problems. Patient was taken back to the operating room, timeout procedure was performed, he was identified and marked and placed on the operating room table. He underwent general anesthesia. He was placed in dorsolithotomy position. Penis and testicles were prepped and draped in usual sterile fashion. Went into the bladder using the visual obturator with a resectoscope. Once inside the bladder identified the right and left ureteral orifice. I then identified the prostate and the anatomy of the prostate. I marked out the area of the sphincter and the verumontanum was identified. I then proceeded with the prostate resection first resected the median lobe. And then resected the right lobe of the prostate. Then to resect the left lobe of the prostate. I then resected the apical tissue of the prostate. This was a complete resection of all obstructive tissue to improve voiding and relieve obstruction. I then made sure that there was no injury to the sphincter or the verumontanum was still intact. At the end of the resection all the chips were Ellik out of the bladder. I then identified the left and right ureteral orifice and these were confirmed to be in good position and effluxing and not injured. The resectoscope was removed, a 22 [place] catheter was placed into the bladder on continuous irrigation. And the urine was fairly light pink color and draining normally. He was taken back to the PACU in good condition. CPT 09602 Surgeon: juan a Type of Anesthesia: General Drains: 22fr 3 way hui Admit VTE Documentation VTE Present on Admission: No VTE Mechan Device Prophylaxis: SCD's VTE Pharm Prophylaxis ordered?: No
[2021-11-05 17:16] LABS: Bedside Glucose 102 mg/dL (70-110)
[2021-11-05] MEDS: Furosemide 40 MG Tablet PO (18:17)
[2021-11-05] MEDS: hydrALAZINE 50 MG Tablet 100 MG PO (21:26)
[2021-11-05] MEDS: Ciprofloxacin 500 MG Tablet PO (21:26)
[2021-11-05] MEDS: Atorvastatin Calcium 40 MG Tablet PO (21:26)
[2021-11-05] MEDS: Carvedilol 12.5 MG Tablet PO (21:26)
[2021-11-05] MEDS: Potassium Chloride Oral Tablet 20 MEQ PO (21:27)
[2021-11-05] MEDS: Isosorbide DN 20 MG Tablet PO (21:27)
[2021-11-06 01:59] VITALS: BMI 30.1
[2021-11-06 02:00] VITALS: BP 130/64; PULSE 78; RESP 16; TEMP 37.2; O2SAT 94
[2021-11-06 05:59] VITALS: BMI 30.1
[2021-11-06 06:00] VITALS: BP 126/73; PULSE 80; RESP 16; TEMP 37; O2SAT 95
[2021-11-06 06:15] VITALS: PULSE 80
[2021-11-06] MEDS: hydrALAZINE 50 MG Tablet 100 MG PO ×2 (06:15→14:44)
[2021-11-06] MEDS: Isosorbide DN 20 MG Tablet PO ×2 (06:17→14:44)
[2021-11-06 07:45] VITALS: BP 117/53; PULSE 86; RESP 18; TEMP 36.8; O2SAT 94
[2021-11-06] MEDS: Calcium (Elemental) 500 MG Tablet PO (07:53)
[2021-11-06] MEDS: Potassium Chloride Oral Tablet 20 MEQ PO (07:53)
[2021-11-06] MEDS: Furosemide 40 MG Tablet PO (07:53)
[2021-11-06] MEDS: Pantoprazole Sodium 40 MG Tablet PO (07:54)
[2021-11-06] MEDS: Hydroxychloroquine 200 MG Tablet PO (07:54)
[2021-11-06] MEDS: Mirtazapine 30 MG Tablet 45 MG PO (07:55)
[2021-11-06] MEDS: Ciprofloxacin 500 MG Tablet PO (07:55)
[2021-11-06] MEDS: Ferrous Sulfate 325 MG Tablet PO (07:55)
[2021-11-06] MEDS: Carvedilol 12.5 MG Tablet PO (07:56)
[2021-11-06] MEDS: Lisinopril 20 MG Tablet PO (07:59)
[2021-11-06 13:59] VITALS: BMI 30.1
[2021-11-06 14:36] VITALS: BP 145/82; PULSE 66; RESP 18; TEMP 37.2; O2SAT 98
[2021-11-06 14:44] VITALS: PULSE 66
== END 2021-11-06 16:20 | disposition home or self-care (01) ==
LOC: SDC 13:11 → AC 16:29 → MS3 11-06 10:58
PROVIDERS: PCP Family Medicine; Referring Provider Urology; Visit Provider Urology
PROC: (CPT 52601; principal; 2021-11-05 15:05)
DX: N40.0 Benign prostatic hyperplasia without lower urinary tract symptoms (principal); I11.0 Hypertensive heart disease with heart failure; I50.22 Chronic systolic (congestive) heart failure; I47.2 Ventricular tachycardia; I35.9 Nonrheumatic aortic valve disorder, unspecified; I25.10 Atherosclerotic heart disease of native coronary artery without angina pectoris; J84.10 Pulmonary fibrosis, unspecified; I48.91 Unspecified atrial fibrillation; J44.9 Chronic obstructive pulmonary disease, unspecified; E11.9 Type 2 diabetes mellitus without complications; E78.5 Hyperlipidemia, unspecified; D64.9 Anemia, unspecified; M06.9 Rheumatoid arthritis, unspecified; M79.7 Fibromyalgia; K21.9 Gastro-esophageal reflux disease without esophagitis; Z99.81 Dependence on supplemental oxygen; Z79.01 Long term (current) use of anticoagulants; Z79.82 Long term (current) use of aspirin; Z79.899 Other long term (current) drug therapy; Z95.0 Presence of cardiac pacemaker; Z95.1 Presence of aortocoronary bypass graft; Z95.5 Presence of coronary angioplasty implant and graft
CPT/HCPCS: 00914; 52601; 82962; 88305; J7120; J2405

== ENCOUNTER 2021-12-29 09:09 | Outpatient (CLI) | payer MEDICARE, OTHER, SELFPAY ==
[2021-12-29 10:05] LABS: Absolute Lymphocyte Count 1.64 X10^3/uL (0.83-4.51); Absolute Neutrophil Count 4.4 X10^3/uL (2.0-7.7); Basophil# 0.11 X10^3/uL; Basophil% 1.4 % (0-1); Eosinophil# 0.41 X10^3/uL; Eosinophils% 5.4 % (0-5); Hematocrit 34.2 % (40-54); Hemoglobin 10.9 g/dL (13.0-16.5); Lymphocyte # 1.64 X10^3/ul (0.83-4.51); Lymphocyte % 21.4 % (19-41); Mean Corp Hgb Conc 31.9 g/dL (32-36); Mean Corpuscular Hgb 29.8 pg (27.0-32.0); Mean Corpuscular Volume 93.4 fL (80-94); Mean Platelet Vol. 11.1 fl (6.2-12.0); Monocyte% 14.4 % (0-10); NRBC Flagged by Analyzer 0 % (0-5); Neutrophil # 4.37 X10^3/uL (2.7-7.7); Platelet Count 220 K/mm3 (150-450); RBC Distribution Width SD 47.5 fl (35.1-43.9); Red Blood Count 3.66 M/mm3 (4.6-6.2); White Blood Count 7.7 K/mm3 (4.4-11.0)
[2021-12-29 10:51] LABS: ALB/GLOB Ratio 0.9 RATIO (0.9-2.4); AST(SGOT) 20 U/L (15-37); Alanine Aminotransfer ALT/SGPT 28 U/L (16-61); Albumin, Serum 3.2 g/dL (3.2-5.0); Alkaline Phosphatase 60 U/L (45-117); Anion Gap 5 (5-15); BUN 52 mg/dL (7-18); BUN/Creat Ratio 19.8 RATIO (10-20); Calcium,Total 8.6 mg/dL (8.5-10.1); Chloride 105 mmol/L (98-107); Creatinine, Serum 2.63 mg/dL (0.70-1.30); EST Glomerular Filtration Rate 25 mL/min (>60); Est Glom Filt Rate - Afr Amer 30 mL/min (>60); Globulin 3.5 g/dL (2.2-4.2); Glucose 265 mg/dL (74-106); Potassium 3.7 mmol/L (3.5-5.1); Protein, Total 6.7 g/dL (6.4-8.2); Sodium Level 139 mmol/L (136-145)
== END 2021-12-29 23:59 | disposition home or self-care (01) ==
PROVIDERS: PCP Family Medicine; Referring Provider Internal Medicine Rheumatology; Visit Provider Internal Medicine Rheumatology
DX: M06.09 Rheumatoid arthritis without rheumatoid factor, multiple sites (principal); I50.9 Heart failure, unspecified; I11.0 Hypertensive heart disease with heart failure; I48.91 Unspecified atrial fibrillation; J84.10 Pulmonary fibrosis, unspecified; E11.9 Type 2 diabetes mellitus without complications; M79.7 Fibromyalgia; M15.9 Polyosteoarthritis, unspecified; M47.897 Other spondylosis, lumbosacral region; I25.10 Atherosclerotic heart disease of native coronary artery without angina pectoris; M48.061 Spinal stenosis, lumbar region without neurogenic claudication; Z79.899 Other long term (current) drug therapy
CPT/HCPCS: 36415; 80053; 85025

== ENCOUNTER → 2022-06-23 | Outpatient (CLI) | payer MEDICARE, OTHER, SELFPAY ==
[2022-06-23 15:16] LABS: Absolute Lymphocyte Count 1.47 X10^3/uL (0.83-4.51); Absolute Neutrophil Count 4.7 X10^3/uL (2.0-7.7); Basophil# 0.13 X10^3/uL; Basophil% 1.6 % (0-1); Eosinophil# 0.59 X10^3/uL; Eosinophils% 7.3 % (0-5); Hematocrit 33.5 % (40-54); Hemoglobin 10.7 g/dL (13.0-16.5); Lymphocyte # 1.47 X10^3/ul (0.83-4.51); Lymphocyte % 18.1 % (19-41); Mean Corp Hgb Conc 31.9 g/dL (32-36); Mean Corpuscular Hgb 30.4 pg (27.0-32.0); Mean Corpuscular Volume 95.2 fL (80-94); Mean Platelet Vol. 11.5 fl (6.2-12.0); Monocyte# 1.18 X10^3/uL; Monocyte% 14.6 % (0-10); NRBC Flagged by Analyzer 0 % (0-5); Neutrophil # 4.71 X10^3/uL (2.7-7.7); Neutrophil % 58.2 % (47-70); Platelet Count 194 K/mm3 (150-450); RBC Distribution Width CV 13.6 % (11.6-14.6); RBC Distribution Width SD 47.5 fl (35.1-43.9); Red Blood Count 3.52 M/mm3 (4.6-6.2); White Blood Count 8.1 K/mm3 (4.4-11.0)
[2022-06-23 15:29] LABS: ALB/GLOB Ratio 0.9 RATIO (0.9-2.4); AST(SGOT) 17 U/L (15-37); Alanine Aminotransfer ALT/SGPT 27 U/L (16-61); Albumin, Serum 3.4 g/dL (3.2-5.0); Alkaline Phosphatase 57 U/L (45-117); Anion Gap 7 (5-15); BUN 43 mg/dL (7-18); BUN/Creat Ratio 11.8 RATIO (10-20); Calcium,Total 8.4 mg/dL (8.5-10.1); Chloride 104 mmol/L (98-107); Cholesterol 89 mg/dL (200); Creatinine, Serum 3.63 mg/dL (0.70-1.30); EST Glomerular Filtration Rate 17 mL/min (>60); Est Glom Filt Rate - Afr Amer 21 mL/min (>60); Globulin 3.9 g/dL (2.2-4.2); Glucose 162 mg/dL (74-106); High Density Lipoprotein 44 mg/dL; Iron 35 ug/dL (65-175); Potassium 4.3 mmol/L (3.5-5.1); Protein, Total 7.3 g/dL (6.4-8.2); Sodium Level 140 mmol/L (136-145); Thyroid Stim Hormone (TSH) 2.46 uIU/mL (0.358-3.74); Triglycerides 66 mg/dL; Very Low Density Lipoprotein 13 mg/dL (5-40)
[2022-06-23 15:34] LABS: Vitamin D,25 Hydroxy 70.6 ng/mL
[2022-06-23 15:47] LABS: Erythrocyte Sedimentation Rate 24 mm/hr (0-20); Vacuolated Cells 8.1
== END | disposition home or self-care (01) ==
LOC: MFPLAB 12:03
PROVIDERS: PCP Family Medicine; Referring Provider Family Medicine; Visit Provider Family Medicine
DX: E11.9 Type 2 diabetes mellitus without complications (principal); M06.9 Rheumatoid arthritis, unspecified; R29.898 Other symptoms and signs involving the musculoskeletal system
CPT/HCPCS: 36415; 80053; 80061; 82306; 83540; 84443; 85025; 85652

== ENCOUNTER → 2022-06-29 | Outpatient (CLI) | payer MEDICARE, OTHER, SELFPAY ==
[2022-06-29 11:42] LABS: Mucous, Urine 0 SEEN /hpf (<or=2+); Red Blood Cells-Urine 0 SEEN /hpf (0-5); Squamous Epithelial Cells - UA 0 SEEN /hpf (0-5); White Blood Cells 0 SEEN /hpf (0-5)
[2022-06-29 15:17] LABS: Color, Urine Straw (Yellow); Glucose, Dipstick Normal (Normal); Ketone-Dipstick Negative (Negative); Leukocyte Esterase-Dipstick Negative /ul (Negative); Nitrite-Dipstick Negative (Negative); Occult Blood-Urine Negative /ul (Negative); Protein-Dipstick 100 mg/dl (Negative); Urine Bilirubin Dipstick Negative (Negative); Urine Clarity Clear (Clear); Urine Urobilinogen Normal (Normal)
[2022-06-29 15:18] LABS: Anion Gap 8 (5-15); BUN 43 mg/dL (7-18); BUN/Creat Ratio 12.2 RATIO (10-20); Calcium,Total 8.6 mg/dL (8.5-10.1); Chloride 105 mmol/L (98-107); Creatinine, Serum 3.53 mg/dL (0.70-1.30); EST Glomerular Filtration Rate 18 mL/min (>60); Est Glom Filt Rate - Afr Amer 21 mL/min (>60); Glucose 150 mg/dL (74-106); Potassium 3.8 mmol/L (3.5-5.1); Sodium Level 142 mmol/L (136-145)
[2022-06-29 15:37] LABS: Bacteria RARE /hpf (None Seen)
== END | disposition home or self-care (01) ==
LOC: MFPLAB 11:34
PROVIDERS: PCP Family Medicine; Referring Provider Family Medicine; Visit Provider Family Medicine
DX: N28.9 Disorder of kidney and ureter, unspecified (principal)
CPT/HCPCS: 36415; 80048; 81001

== ENCOUNTER → 2022-07-09 | Outpatient (CLI) | payer MEDICARE, OTHER, SELFPAY ==
--- NOTE | 2022-07-09 12:19 | US_ITS ---
STUDY: RENAL ULTRASOUND - COMPLETE REASON FOR EXAM: Male, 82 years old. CKD stage III. TECHNIQUE: Ultrasound evaluation of the kidneys was performed with real-time and static man-scale imaging. COMPARISON: Comparison is made with prior study dated 09/08/2021. FINDINGS: RIGHT KIDNEY: Normal location of the right kidney, which is normal in size. The right kidney measures 11.1 cm x 4.17 x 4.4 cm. There is a normal cortex of the right kidney. The renal cortex measures 1.8 cm. The renal cortex is echogenic. There is no right renal mass or cyst. There are no right renal calculi. There is no right hydronephrosis. DISTAL RIGHT URETER: There is non-visualization of the distal right ureter. There is no demonstrated right ureterovesical junction calculus. There is no demonstrated right ureteral jet. LEFT KIDNEY: Normal location of the left kidney, which is normal in size. The left kidney measures 11.3 cm x 3.6 cm x 4.8 cm. There is a normal cortex of the left kidney. The renal cortex measures 1.6 cm. The renal cortical echotexture is increased. There is a 3.9 cm x 1.9 cm x 1.4 cm left renal cyst. There are no left renal calculi. There is no left hydronephrosis. DISTAL LEFT URETER: There is non-visualization of the distal left ureter. There is no demonstrated left ureterovesical junction calculus. There is no demonstrated left ureteral jet. BLADDER: The distended urinary bladder has a volume of 352 ml. There is a normal wall thickness of the distended urinary bladder. There is no demonstrated mass within the urinary bladder. There are no demonstrated bladder calculi. US/Kidney and Bladder IMPRESSION: 3.9 cm x 1.97 x 1.4 cm left renal cyst. Increased bilateral renal cortical echotexture. Electronically Signed: Gavin Salazar MD at 14:33 EDT ,
== END | disposition home or self-care (01) ==
LOC: US 12:18
PROVIDERS: PCP Family Medicine; Referring Provider Internal Medicine Nephrology; Visit Provider Internal Medicine Nephrology
DX: N18.32 Chronic kidney disease, stage 3b (principal)
CPT/HCPCS: 76770

== ENCOUNTER → 2022-07-10 | Outpatient (CLI) | payer MEDICARE, OTHER, SELFPAY ==
[2022-07-10 12:16] LABS: Protein, Urine (Random) 70.8 mg/dL (<11.9); Protein:Creat Ratio 1613 mg/g CRE (0-200)
[2022-07-10 12:18] LABS: Hematocrit 32.5 % (40-54); Hemoglobin 10.5 g/dL (13.0-16.5); Mean Corp Hgb Conc 32.3 g/dL (32-36); Mean Corpuscular Hgb 30.8 pg (27.0-32.0); Mean Corpuscular Volume 95.3 fL (80-94); Mean Platelet Vol. 11.3 fl (6.2-12.0); Platelet Count 202 K/mm3 (150-450); RBC Distribution Width CV 13.2 % (11.6-14.6); RBC Distribution Width SD 46.2 fl (35.1-43.9); Red Blood Count 3.41 M/mm3 (4.6-6.2); Vitamin D,25 Hydroxy 64.6 ng/mL; White Blood Count 7.7 K/mm3 (4.4-11.0)
[2022-07-10 12:28] LABS: Albumin, Serum 3.2 g/dL (3.2-5.0); BUN 38 mg/dL (7-18); BUN/Creat Ratio 10.8 RATIO (10-20); Calcium,Total 8.5 mg/dL (8.5-10.1); Chloride 104 mmol/L (98-107); Creatinine, Serum 3.53 mg/dL (0.70-1.30); EST Glomerular Filtration Rate 18 mL/min (>60); Est Glom Filt Rate - Afr Amer 21 mL/min (>60); Glucose 152 mg/dL (74-106); Magnesium 2.3 mg/dL (1.6-2.6); PTHIN 163.6 pg/mL (18.4-80.1); Phosphorus 3.3 mg/dL (2.5-4.9); Potassium 3.8 mmol/L (3.5-5.1); Sodium Level 140 mmol/L (136-145)
[2022-07-12 08:54] LABS: ANTINUCLEAR ANTIBODIES DIRECT Positive (Negative)
== END | disposition home or self-care (01) ==
PROVIDERS: PCP Family Medicine; Referring Provider Family Medicine; Visit Provider Internal Medicine Nephrology
DX: N18.32 Chronic kidney disease, stage 3b (principal)
CPT/HCPCS: 36415; 80069; 82306; 82570; 83735; 83970; 84156; 85027; 86038; 86256

== ENCOUNTER → 2022-07-31 | Outpatient (CLI) | payer MEDICARE, OTHER, SELFPAY ==
[2022-07-31 10:03] LABS: Absolute Lymphocyte Count 0.89 X10^3/uL (0.83-4.51); Absolute Neutrophil Count 4.4 X10^3/uL (2.0-7.7); Basophil% 1.4 % (0-1); Eosinophil# 0.42 X10^3/uL; Hematocrit 34.4 % (40-54); Hemoglobin 10.6 g/dL (13.0-16.5); Lymphocyte # 0.89 X10^3/ul (0.83-4.51); Lymphocyte % 12.7 % (19-41); Mean Corp Hgb Conc 30.8 g/dL (32-36); Mean Corpuscular Hgb 29.5 pg (27.0-32.0); Mean Corpuscular Volume 95.8 fL (80-94); Mean Platelet Vol. 11.1 fl (6.2-12.0); Monocyte# 1.12 X10^3/uL; NRBC Flagged by Analyzer 0 % (0-5); Neutrophil # 4.44 X10^3/uL (2.7-7.7); Neutrophil % 63.6 % (47-70); Platelet Count 198 K/mm3 (150-450); RBC Distribution Width CV 13.8 % (11.6-14.6); RBC Distribution Width SD 48.3 fl (35.1-43.9); Red Blood Count 3.59 M/mm3 (4.6-6.2)
[2022-07-31 10:59] LABS: ALB/GLOB Ratio 0.8 RATIO (0.9-2.4); AST(SGOT) 14 U/L (15-37); Alanine Aminotransfer ALT/SGPT 14 U/L (16-61); Albumin, Serum 3.3 g/dL (3.2-5.0); Alkaline Phosphatase 58 U/L (45-117); Anion Gap 7 (5-15); BUN 37 mg/dL (7-18); BUN/Creat Ratio 11.2 RATIO (10-20); Calcium,Total 8.7 mg/dL (8.5-10.1); Chloride 105 mmol/L (98-107); Creatinine, Serum 3.29 mg/dL (0.70-1.30); EST Glomerular Filtration Rate 19 mL/min (>60); Est Glom Filt Rate - Afr Amer 23 mL/min (>60); Globulin 3.9 g/dL (2.2-4.2); Glucose 226 mg/dL (74-106); Potassium 3.6 mmol/L (3.5-5.1); Protein, Total 7.2 g/dL (6.4-8.2); Sodium Level 142 mmol/L (136-145)
== END | disposition home or self-care (01) ==
LOC: MFPLAB 09:17
PROVIDERS: PCP Family Medicine; Referring Provider Family Medicine; Visit Provider Internal Medicine Rheumatology
DX: M06.09 Rheumatoid arthritis without rheumatoid factor, multiple sites (principal); I50.9 Heart failure, unspecified; I11.0 Hypertensive heart disease with heart failure; I48.91 Unspecified atrial fibrillation; J84.10 Pulmonary fibrosis, unspecified; E11.9 Type 2 diabetes mellitus without complications; M79.7 Fibromyalgia; M15.9 Polyosteoarthritis, unspecified; M47.897 Other spondylosis, lumbosacral region; I25.10 Atherosclerotic heart disease of native coronary artery without angina pectoris; M48.061 Spinal stenosis, lumbar region without neurogenic claudication; Z79.899 Other long term (current) drug therapy
CPT/HCPCS: 36415; 80053; 85025

== ENCOUNTER 2022-08-10 09:00 | Outpatient (RCR) | payer MEDICARE, OTHER, SELFPAY ==
--- NOTE | 2022-07-03 10:56 | HP.PTEVAL ---
Patient's Visit Information JUVENTINO CERNA is a 81 year old M referred to Physical Therapy by Dr. Samuel Avendaño MD with a diagnosis of Weakness. Date of Evaluation: 07/03/22 Physical Therapist: Cindy Ann DPT - Visit Plan Frequency: 2x /Week Duration: 4 Weeks Plan: Focus on LE and core strength/stabilization- proprioception- functional mobility - Subjective Patient reports that about a month ago he started having weakness in his legs. He lives alone next door to his son and . He has lots of help as needed. He lives in a basement apartment- with 4 steps to enter. He is able to do the stairs one at a time with his cane and hand rail. He does all of his ADL's but does not drive. He uses a shower chair and grab bars. He does not use a cane or walker at home but he does use a cane when he goes out. His family does his shopping and bring him meals so all he does it heat them up. He goes to the shop 1-2x a week to get out of the apartment. Insidious onset- he does exercise daily (squats, arm movements, push ups on the banister, walking back and forth) 2x a day. He was in the hospital rehab about 2 years and they taught him the exercises and he is faithful. He has not had any falls- a couple of staggers but no falls. No pain- he takes an infusion every month- which takes away all of his pain. He has a FWW at home but he doesn't use it- but if its nice sometimes he will get it up and gets it out and walk up/down the sidewalk-has a seat on it. PMHx/Meds: see list - Objective Posture: FH, RS- can correct but does not maintain. Gait: quad cane- decreased elroy and step length- crouched posture- SOB after 50 feet. HR/TR: able with UE A. Stairs: Asc/desc 8'' recip with quad cane and rail- SOB with asc of one flight. ROM: WFL in all planes. Strenght: Core: fair minus, hip: 4-/5, Knee: 4+/5, Ankle: 4+/5 - Balance/Special Test Scores Functional Gait Assessment Score: 12 % Disability: 60.0000 Lower Extremity Functional Score: 23 TUG Test Time Seconds: 30.5 - Goals Goal 1:: Patient will be I with HEP and progression Goal Time Frame: 4-6 Weeks Goal 2:: Patient will perform a TUG test in under 15 seconds with LRD Goal Time Frame: 4-6 Weeks Goal 3:: Patient will asc/desc 8 stairs with 1 HR Goal Time Frame: 4-6 Weeks Goal 4:: Patient will improve his FGA to WFL for his age group Goal Time Frame: 4-6 Weeks Goal 5:: Patient will report 80% improvement Goal Time Frame: 4-6 Weeks - Rehabilitation Potential Physical Therapy Diagnosis: Patient presents with hypomobility- he has decreased LE and core strength/stabilization, proprioception, flex and muscular endurance leading to abnormal gait and decreased ability to perform ADL's/ Rehabilitation Potential: Fair - Anticipated Interventions Patient/Client Instruction: Educate patient on: Benefits of Fitness Program Therapeutic Exercise to Include: Strength training, Endurance training, Balance training, Coordination, Agility training, Body mechanics, Postural training, Flexibilty training, Gait and locomotor training, Neuromotor development, Dynamic Lumbar Stabilization, Scapular Strength/Stabilization For the Purpose of:: To improve muscle performance and motor function Cryotherapy (ice pack, ice massage): Yes Thermo therapy (hot pack): Yes Thank you for the opportunity to evaluate your patient. For Medicare and Medicare HMO plans, please review the plan of care and approve it. It will need to be FAXED BACK to us at [phone] for Medicare purposes. For Medicare only, by signing this I certify the plan of care. Please let me know if there are questions or concerns regarding this plan of care. Physician Signature: Date:
--- NOTE | 2022-08-10 09:54 | HP.PTDCSUM ---
It has been my pleasure to treat JUVENTINO CERNA referred by Dr. Samuel Avendaño MD, with the diagnosis of Weakness for a total of 8 visit(s). Discharge Date: 08/10/22 Please see the following information for a summary of their discharge status. Subjective: Pt can hardly walk and this has been going on for a long time. He feels that he is getting a little bit stronger but not much. At home he does the same exercises that he has been doing here. He reports that he walks a lot and has a porch that has a banister and goes around that 5X and he has steps in front and back of apartment and goes up and down them 6 times but he runs out of breath. Pt feels that he is not going to get any better. He reports that he holds onto the banister and does squats. He is able to do his ADL's. He lives alone but his son lives next door. He reports that he is having kidney trouble and goes to the specialist tom. At home pt holds onto the furniture and his cane. % Improvement: 80 Objective/Function: Stairs: up and down recip with 2 handrails. FGA: 11. TU:11. Gait: Walks with wider TRUDY and could only walk 30 feet with SBQC and reports that he has to sit due to being too tired and that he has done too much already today. Goal 1:: Patient will be I with HEP and progression Goal Progress: Goal Met Goal 2:: Patient will perform a TUG test in under 15 seconds with LRD Goal Progress: Goal Met Goal 3:: Patient will asc/desc 8 stairs with 1 HR Goal Progress: Progressing Goal 4:: Patient will improve his FGA to WFL for his age group Goal Progress: Not Progressing Goal 5:: Patient will report 80% improvement Goal Progress: Goal Met Plan: DC PT Pt wishes to be discharged with HEP and he will get with his Dr if he feels that he can not do it alone at home anymore Discharge Comments: DC PT to HEP If there are questions or concerns regarding this patient's physical therapy, please feel free to call me at [phone]. Thank you for the referral of this patient. Sincerely, Natalia Uribe, MPT Balance/Gait/Functional tests - Balance/Special Test Scores Functional Gait Assessment Score: 11 % Disability: 63.3400 Lower Extremity Functional Score: 36 TUG Test Time Seconds: 30.5 Tug Test: >30sec.=impaired mobility
== END 2022-08-10 10:15 | disposition home or self-care (01) ==
LOC: PT 09:00
PROVIDERS: PCP Family Medicine; Referring Provider Family Medicine; Visit Provider Family Medicine
DX: R26.9 Unspecified abnormalities of gait and mobility (principal)
CPT/HCPCS: 97110; 97162; 97530

== ENCOUNTER → 2022-09-02 | Outpatient (CLI) | payer MEDICARE, OTHER, SELFPAY ==
--- NOTE | 2022-09-02 08:47 | ART_ITS ---
Reason For Study: CORONARY ARTERY DISEASE Procedure A bilateral lower extremity continuous wave Doppler with analog waveform analysis,segmental pressures,and ankle brachial indexes without exercise. Left Segmental Pressures Left brachial= 156mmHg. Left posterior tibial artery = 223mmHg. Left dorsalis pedis artery = 213mmHg. Left digit = 120 mmHg. The left posterior tibial artery waveforms are triphasic. The left dorsalis pedis waveforms are biphasic. Right Segmental Pressures Right brachial= 161mmHg. Right posterior tibial artery = 194mmHg. Right dorsalis pedis artery = 160mmHg. Right digit = 157 mmHg. The right posterior tibial artery waveforms are triphasic. The right dorsalis pedis waveforms are triphasic. Indices The right ankle brachial index by the posterior tibial artery is 1.39. The right ankle brachial index by the dorsalis pedis is 1.32. The right digital-brachial index is 0.75. The left ankle brachial index by the posterior tibial artery is 1.20. The left ankle brachial index by the dorsalis pedis is 0.99. The left digital-brachial index is 0.98. VL/Lower Ext Art Exam w/ Exercise Interpretation Summary Triphasic and biphasic Doppler waveforms are noted at ankle level on the right. Triphasic Doppler waveforms are noted at ankle level on the left. Pulse-volume recordings appear diminished at ankle and digital level on the right, but satisfactory at all other levels bilaterall y. Resting ankle- brachial indices are normal bilaterally. Digital-brachial indices are normal bi laterally. There is no evidence of significant arterial occlusive disease in the lower ext remities bilaterally. Ordering Physician: Samuel Vo Referring Physician: KAYCEE VO MD Performed By: Jose Morris RVT
== END | disposition home or self-care (01) ==
PROVIDERS: PCP Family Medicine; Referring Provider Family Medicine; Visit Provider Family Medicine
DX: I73.9 Peripheral vascular disease, unspecified (principal); I25.10 Atherosclerotic heart disease of native coronary artery without angina pectoris
CPT/HCPCS: 93924

== ENCOUNTER → 2022-09-08 | Outpatient (CLI) | payer MEDICARE, OTHER, SELFPAY ==
--- NOTE | 2022-09-08 07:26 | ECHOD_ITS ---
Reason For Study: Dyspnea/SOB Procedure This was a 2D Doppler, Color Flow transthoracic echocardiogram. Exam performed in department. Left Ventricle Normal LV size. Mild to moderate global left ventricular systolic dysfunction. The estimated ejection fraction is 40 %. Stage 3 diastolic dysfunction. There is mild to moderate global hypokinesis of the left ventricle. Mitral Valve There is mild mitral annular calcification. Mild (1+) eccentric mitral valve insufficiency. Tricuspid Valve Normal tricuspid valve. Mild tricuspid valve insufficiency. Pulmonary artery systolic pressure is 56 mmHg. Aortic Valve Trisinus/trileaflet aortic valve. Mild (1+) aortic valve insufficiency. Pulmonic Valve Normal pulmonic valve. Mild (1+) pulmonic valve insufficiency. Great Vessels Normal aortic root. The pulmonary artery is normal size. Pericardium/Pleural No pericardial effusion. MMode/2D Measurements & Calculations LVIDd: 5.6 cm IVSd: 1.4 cm LVOT diam: 2.0 cm LVIDs: 4.2 cm LVPWd: 1.7 cm LVOT area: 3.0 cm2 RVDd: 4.5 cm FS: 25.6 % LA dimension: 5.0 cm LAV(MOD-bp): 93.6 ml Aortic Valve Planimetry: 1.2 cm2 LAV(MOD-bp) Indexed: 48.8 ml/m2 LAV(MOD-sp2): 84.4 ml LAV(MOD-sp4): 97.5 ml LA A4 area: 27.9 cm2 RA A4 area: 22.5 cm2 Time Measurements MV dec time: 0.24 sec Doppler Measurements & Calculations MV E max alan: 128.4 cm/sec Lat Peak E' Alan: 11.6 cm/sec Med Peak E' Alan: 6.7 cm/sec MV A max alan: 21.8 cm/sec E/E' lat: 11.1 E/E' med: 19.1 MV E/A: 5.9 MV V2 max: 128.8 cm/sec MV P1/2t max alan: 128.8 cm/sec Ao V2 max: 251.6 cm/sec MV max P.6 mmHg MV P1/2t: 130.1 msec Ao max P.4 mmHg MV V2 mean: 63.0 cm/sec MV dec slope: 290.0 cm/sec2 Ao V2 mean: 166.1 cm/sec MV mean P.1 mmHg MVA(P1/2t): 1.7 cm2 Ao mean P.2 mmHg MV V2 VTI: 38.7 cm Ao V2 VTI: 53.8 cm MVA(VTI): 2.1 cm2 EMILY(I,D): 1.5 cm2 EMILY(V,D): 1.4 cm2 AI max alan: 384.1 cm/sec LV V1 max: 118.7 cm/sec SV(LVOT): 79.4 ml AI max P.2 mmHg LV V1 max P.7 mmHg LV V1 mean P.2 mmHg AI dec slope: 170.9 cm/sec2 LV V1 mean: 82.5 cm/sec AI P1/2t: 658.1 msec LV V1 VTI: 26.1 cm PA V2 max: 120.4 cm/sec TR max alan: 323.6 cm/sec PA V2 mean: 76.9 cm/sec TR max P.6 mmHg ECHO/Echo Complete Interpretation Summary Normal LV size. Mild to moderate global left ventricular systolic dysfunction. The estimated ejection fraction is 40 %. There is mild to moderate global hypokinesis of the left ventricle. There is mild mitral annular calcification. Mild (1+) eccentric mitral valve insufficiency. Pulmonary artery systolic pressure is 56 mmHg. Stage 3 diastolic dysfunction. Compared to previous study, the left ventricular systolic function has improved .. Ordering Physician: Spencer Henderson Referring Physician: Sohail Avendaño Performed By: Anil Waddell RCS
--- NOTE | 2022-09-08 16:58 | STRESSREP ---
Stress Test Report Pharmacologic cardial perfusion stress test. 82-year-old male with a history of coronary artery disease. Stress protocol: Resting EKG demonstrates underlying atrial fibrillation with pacemaker activity noted at 61 bpm. 0.4 mg of regadenoson was infused per usual protocol followed by rapid intravenous saline flush injection. The maximum heart rate attained was 64 bpm which was 46% of max impacted heart rate the maximum workload was 1 metabolic equivalent. Patient maintained atrial fibrillation with ventricular pacing and occasional premature ventricular complex noted. The final blood pressure was 138/62 mmHg there were no changes noted to suggest ischemia pacemaker activity was noted. Myocardial perfusion protocol. 14.1 mCi of technetium 99m sestamibi was injected at rest. 0.4 mg of regadenoson was infused per usual protocol. At peak infusion 43.8 mCi of technetium 99m sestamibi was injected stress images were obtained stress and rest images were reconstructed in comparing the short axis vertical long and horizontal long axis. Gated images were also obtained. Perfusion SPECT analysis: Review of the stress images demonstrate normal cardiac silhouette size. There is uniform uptake of tracer noted in all areas of the myocardium except for the apex. This is present on the stress and rest images to a similar extent. A previous apical infarct cannot be excluded. No areas of reversibility are noted suggest ischemia. Gated SPECT analysis: The gated ejection fraction is 37%. Conclusion: Normal pharmacologic myocardial perfusion stress test. Underlying atrial fibrillation and left bundle pacing activity No ischemia present.
== END | disposition home or self-care (01) ==
LOC: CVS 07:23
PROVIDERS: PCP Family Medicine; Referring Provider Internal Medicine Cardiovascular Disease; Visit Provider Internal Medicine Cardiovascular Disease
DX: I25.10 Atherosclerotic heart disease of native coronary artery without angina pectoris (principal); Z95.1 Presence of aortocoronary bypass graft; R06.00 Dyspnea, unspecified; R06.02 Shortness of breath
CPT/HCPCS: 78452; 93017; 93306; A9500; A4216; J2785

== ENCOUNTER → 2022-10-01 | Outpatient (CLI) | payer MEDICARE, OTHER, SELFPAY ==
--- NOTE | 2022-10-01 15:17 | RAD_ITS ---
STUDY: X-RAY - LUMBAR SPINE REASON FOR EXAM: Male, 82 years old. Lower back pain and weakness in the right leg. TECHNIQUE: 4 view(s) of the lumbar spine were obtained. COMPARISON: August 06, 2015. FINDINGS: Normal lumbar lordosis. There is no substantial scoliosis. There is a normal alignment of the vertebrae. There is diffuse demineralization with multi-level endplate spondylosis. There is multi-level degenerative disc disease with multi-level disc space narrowing. There is interval L2-L5 posterior fusion with L4 and L5 laminectomies. There is no evidence of acute fracture or loss of vertebral axial height. There is no demonstrated spondylolysis of the pars interarticulares. There is atherosclerotic calcification of the abdominal aorta without a demonstrated aneurysm. RAD/L/S Spine Min 4 Views IMPRESSION: Interval posterior fusion of L3-L5 without other major interval change Electronically Signed: Dennis Krause DO at 16:59 EST ,
--- NOTE | 2022-10-01 15:17 | RAD_ITS ---
STUDY: X-RAY - PELVIS AND RIGHT HIP REASON FOR EXAM: Male, 82 years old. Lower back pain and weakness in the right leg. TECHNIQUE: 3 views of the pelvis and hip. COMPARISON: Pelvis, February 10, 2021. FINDINGS: There is a non-specific bowel gas pattern. Normal visualized soft tissue structures. Again seen is fusion of the lower lumbar spine. Normal bilateral iliac wings, sacroiliac joints and visualized sacrum. Normal bilateral superior and inferior pubic rami. There are degenerative changes of the pubic symphysis with articular narrowing and sclerosis. Normal bilateral ischial tuberosities. Stable degenerative changes left hip. Normal visualized femoral head. There is cortical sclerosis with sub-cortical cyst formation of the acetabulum. There is moderate articular joint space narrowing of the hip. RAD/HIP, UNI W/ Pelvis 2-3 Views IMPRESSION: No acute abnormality or major interval change. Electronically Signed: Dennis Krause DO at 17:00 EST ,
== END | disposition home or self-care (01) ==
LOC: MTRAD 15:16
PROVIDERS: PCP Family Medicine; Referring Provider Family Medicine; Visit Provider Family Medicine
DX: R29.898 Other symptoms and signs involving the musculoskeletal system (principal)
CPT/HCPCS: 72110; 73502

== ENCOUNTER → 2022-10-23 | Outpatient (CLI) | payer MEDICARE, OTHER, SELFPAY ==
[2022-10-23 17:36] LABS: Hematocrit 35.2 % (40-54); Hemoglobin 10.9 g/dL (13.0-16.5); Mean Corpuscular Hgb 28.7 pg (27.0-32.0); Mean Corpuscular Volume 92.6 fL (80-94); Mean Platelet Vol. 11.4 fl (6.2-12.0); Platelet Count 220 K/mm3 (150-450); RBC Distribution Width CV 15.5 % (11.6-14.6); RBC Distribution Width SD 52.3 fl (35.1-43.9); White Blood Count 6.7 K/mm3 (4.4-11.0)
[2022-10-23 17:56] LABS: Albumin, Serum 3.2 g/dL (3.2-5.0); BUN 41 mg/dL (7-18); BUN/Creat Ratio 11.1 RATIO (10-20); Calcium,Total 8.7 mg/dL (8.5-10.1); Chloride 105 mmol/L (98-107); Creatinine, Serum 3.71 mg/dL (0.70-1.30); EST Glomerular Filtration Rate 17 mL/min (>60); Est Glom Filt Rate - Afr Amer 20 mL/min (>60); Glucose 190 mg/dL (74-106); Magnesium 2.2 mg/dL (1.6-2.6); Phosphorus 3.5 mg/dL (2.5-4.9); Potassium 3.8 mmol/L (3.5-5.1); Sodium Level 142 mmol/L (136-145)
[2022-10-23 17:59] LABS: Vitamin D,25 Hydroxy 71.1 ng/mL
[2022-10-23 19:09] LABS: Microalbumin:Creatinine Ratio 760.5 mg/g CRE (<30 mg/g CRE)
[2022-10-26 09:45] LABS: PTHIN 126.2 pg/mL (18.4-80.1)
== END | disposition home or self-care (01) ==
LOC: MTLAB 14:16
PROVIDERS: PCP Family Medicine; Referring Provider Internal Medicine Nephrology; Visit Provider Internal Medicine Nephrology
DX: N18.4 Chronic kidney disease, stage 4 (severe) (principal); N25.81 Secondary hyperparathyroidism of renal origin
CPT/HCPCS: 36415; 80069; 82043; 82306; 82570; 83735; 83970; 85027

== ENCOUNTER 2022-11-18 17:49 | Inpatient (IN) | payer MEDICARE, OTHER, SELFPAY ==
[2022-11-18 17:51] VITALS: BP 151/73; PULSE 59; RESP 14; TEMP 36.8; O2SAT 95; BMI 33.3
--- NOTE | 2022-11-18 18:29 | EKG12_ITS ---
Test Reason : DYSRHYTHMIA Blood Pressure : / mmHG Vent. Rate : 060 BPM Atrial Rate : 039 BPM P-R Int : 000 ms QRS Dur : 182 ms QT Int : 596 ms P-R-T Axes : 000 -65 112 degrees QTc Int : 596 ms Ventricular-paced rhythm Abnormal ECG Confirmed by KARL WEBB, LYNDSEY ([id number]), supervising film or videotape editor CHIQUITA HEWITT ([id number]) on 11/20/2022 6:34:04 AM Referred By: BHAVESH Confirmed By:ANTWON BARAJAS MD
--- NOTE | 2022-11-18 18:30 | RAD_ITS ---
STUDY: X-RAY CHEST REASON FOR EXAM: Male, 82 years old. SOB, SWELLING TO FACE AND BILAT LOWER EXTREMITIES SINCE WEDNESDAY. HX CHF, KIDNEYS FUNCTIONING AT 15% SOB TECHNIQUE: XR Chest 1 View COMPARISON: 09.08.21 FINDINGS: There is atherosclerotic calcification of the aortic arch with tortuosity. There are diffuse degenerative changes of the visualized thoracic spine. There is degenerative osteoarthritis of the bilateral shoulders. There are bilateral pleural effusions. There are bilateral infiltrates. There is a left sided pacemaker batterypack. There are multiple median sternotomy wires. There is borderline cardiomegaly. Normal mediastinum and ceferino. Normal visualized pulmonary arteries. There is no demonstrated abnormality of the visualized soft tissue structures of the upper abdomen. RAD/Chest 1 View (Portable) IMPRESSION: Pulmonary findings appear worse. Electronically Signed: Adi Combs MD at 18:47 EST ,
[2022-11-18 19:19] VITALS: BP 179/89; PULSE 61; RESP 27; O2SAT 93; O2SAT 94
--- NOTE | 2022-11-18 20:14 | EDS_ITS ---
HPI <REX Ayala - Last Filed: 11/18/22 23:11> History of Present Illness Chief Complaint: Shortness of Breath Narrative Narrative: Patient presents today with what he thinks is a CHF exacerbation. His granddaughter states he has had increased swelling to his face and legs bilaterally since Wednesday and has had a 15 lb weight gain. He is feeling short of breath. She states he has had difficulty ambulating as well. Patient saw his PCP yesterday who placed him on bumetanide BID to help with the edema but it has not helped. Patient has chronic kidney failure and states his kidneys are functioning at 15% and he is set to get dialysis soon. Patient has a history of CHF and anemia. He is on oxygen at home at nighttime and as needed throughout the day. He denies chest pain, abdominal pain, nausea, vomiting, diarrhea, recent illness, cough, and URI symptoms. [facility] <REX Ayala - Last Filed: 11/18/22 23:11> [facility] Medical History LUCAS (acute kidney injury) Ambulates with cane Amiodarone pulmonary toxicity Anemia Arthritis Atherosclerosis of coronary artery without angina pectoris AV block, Mobitz II BPH (benign prostatic hyperplasia) COPD (chronic obstructive pulmonary disease) Diabetes mellitus, type II Essential hypertension Fibromyalgia Gastric reflux Heart failure with reduced ejection fraction History of steroid therapy Hyperlipidemia Ischemic cardiomyopathy Longstanding persistent atrial fibrillation Loss of hearing Non-smoker Nonrheumatic aortic (valve) stenosis On home oxygen therapy Prostate disease Pulmonary fibrosis Rheumatoid arthritis 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 Symptomatic bradycardia Tinea manus Tinea unguium Weakness Wears glasses Home Medications aspirin 81 mg chewable tablet 81 mg PO DAILY@0800 blood thinner 03/10/14 [History Last Taken 10/29/21] atorvastatin 40 mg tablet 40 mg PO QHS #30 tabs 06/22/17 [Rx Last Taken 11/04/21] carvedilol 12.5 mg tablet 12.5 mg PO BID ##60 06/22/17 [Rx Last Taken 11/05/21 07:00] pantoprazole 40 mg tablet,delayed release 40 mg PO DAILY ##30 06/22/17 [Rx Last Taken 11/05/21 07:00] hydroxychloroquine 200 mg tablet 200 mg PO DAILY arthritis 09/26/20 [History Last Taken 11/04/21] SIMPHONI 1 dose IV BOLUS .QOMONTH ARTHRITIS 09/08/21 [History Last Taken 1 Month Ago ~08/09/21] acetaminophen 500 mg tablet 500 mg PO Q6H PRN PAIN 09/08/21 [History Last Taken 09/07/21] apixaban 2.5 mg tablet (Eliquis) 2.5 mg PO BID 09/08/21 [History Last Taken 10/29/21] calcium carbonate 500 mg calcium (1,250 mg) tablet 500 mg PO DAILY SUPPLEMENT 09/08/21 [History Last Taken 11/04/21] mirtazapine 45 mg tablet 45 mg PO DAILY MOOD 09/08/21 [History Last Taken 11/04/21] ferrous sulfate 325 mg (65 mg iron) tablet 325 mg PO DAILY iron supplement 08/21/22 [History Last Taken Unknown] finasteride 5 mg tablet 5 mg PO DAILY 08/21/22 [History Last Taken Unknown] potassium chloride 20 mEq tablet,extended release 20 meq PO DAILY 08/21/22 [History Last Taken Unknown] tamsulosin 0.4 mg capsule 0.4 mg PO DAILY 08/21/22 [History Last Taken Unknown] isosorbide dinitrate 20 mg tablet 20 mg PO TID HEART #270 tabs 08/25/22 [Rx Last Taken Unknown] torsemide 20 mg tablet 20 mg PO BID #180 tabs 08/25/22 [Rx Last Taken Unknown] lorazepam 0.5 mg tablet 0.5 mg PO QHS 10/07/22 [History Last Taken Unknown] hydralazine 100 mg tablet 100 mg PO TID #360 tabs 10/26/22 [Rx Last Taken Unknown] bumetanide 1 mg tablet 1 mg PO BID 11/18/22 [History Last Taken Unknown] Allergy/AdvReac Type Severity Reaction Status Date / Time amiodarone Allergy Mild PT UNSURE Verified 11/18/22 17:51 OF REACTION simvastatin Allergy Mild Other Verified 11/18/22 17:51 hydralazine Allergy PT UNSURE Verified 11/18/22 17:51 OF REACTION Penicillins Allergy Rash Verified 11/18/22 17:51 rosuvastatin [From Crestor] Allergy PT UNSURE Verified 11/18/22 17:51 OF REACTION Family History Other CAD (coronary artery disease) Hypertension Seizures Surgical History H/O coronary artery bypass surgery (07/11/07) History of cholecystectomy (01/2021) History of coronary artery stent placement (05/28/17) History of left heart catheterization (05/06/10) History of lumbar fusion (02/2017) History of permanent cardiac pacemaker placement (07/19/18) History of radiofrequency ablation procedure for cardiac arrhythmia (08/25/13) History of right and left heart catheterization (05/28/17) Hx of appendectomy Hx of bilateral cataract extraction Social History current occupational status: retired Smoking Status: Never smoker alcohol intake: never substance use type: does not use ROS <REX Ayala - Last Filed: 11/18/22 23:11> ROS ED Constitutional Constitutional ED: Denies chills, fever(s) or sweats Eyes Eyes: Denies blurry vision or change in vision ENT ENT ED: Denies rhinorrhea or sore throat Cardiovascular Cardiovascular: Reports orthopnea; Denies chest pain, palpitations or racing heartbeat Respiratory/Chest Respiratory/Chest: Reports dyspnea, dyspnea on exertion and orthopnea; Denies cough Gastrointestinal Gastrointestinal: Denies abdominal pain, diarrhea, nausea or vomiting Genitourinary Genitourinary ED: Denies dysuria, hematuria or urinary frequency Musculoskeletal Musculoskeletal: Denies arthralgias, back pain or myalgias Integumentary Denies abscess, Abrasions or rash Neurologic Neurologic: Denies headache(s), paresthesias or weakness Psychiatric Psychiatric: Denies anxiety, depression or suicidal ideation EXAM <REX Ayala - Last Filed: 11/18/22 23:11> Physical Exam Const Vital Signs: 11/18/22 17:51 11/18/22 19:19 11/18/22 19:19 Temperature 98.2 F Temperature Source Temporal Pulse Rate 59 L Respiratory Rate 14 Respiratory Effort Respiratory Depth Respiratory Pattern Blood Pressure 151/73 H Blood Pressure Mean 99 Pulse Ox 95 93 Oxygen Delivery Method Room Air Room Air Room Air 11/18/22 19:19 11/18/22 19:19 11/18/22 21:40 Temperature Temperature Source Pulse Rate 61 60 Respiratory Rate 27 H 25 H Respiratory Effort Non-Labored Short of Breath Respiratory Depth Normal Respiratory Pattern Tachypnea Blood Pressure 179/89 H 167/95 H Blood Pressure Mean 119 119 Pulse Ox 93 94 Oxygen Delivery Method Room Air Room Air Room Air Positive well nourished and well developed General Appearance ED: well developed and NAD HEENT Reports moist mucous membranes atraumatic Eyes PERRL and EOMs intact bilaterally Neck no lymphadenopathy and supple Resp clear to auscultation bilaterally Resp Narrative: Tachypnea. Auscultation: Negative for rales, rhonchi or wheezes Cardio regular rate, regular rhythm and no murmurs GI non-tender, non-distended and no masses Palpation: soft Back/Spine normal to inspection Extremity Extremity Narrative: 1+ pitting edema in lower legs bilaterally. Neuro oriented x3, CN's II-XII intact bilaterally and no sensory deficits noted Motor Exam: strength 5/5 throughout Psych mental status grossly normal Skin no wounds and skin turgor normal <Dr. Tosin Fleming MD - Last Filed: 11/19/22 01:07> Physical Exam Const Vital Signs: 11/18/22 17:51 11/18/22 19:19 11/18/22 19:19 Temperature 98.2 F Temperature Source Temporal Pulse Rate 59 L Respiratory Rate 14 Respiratory Effort Respiratory Depth Respiratory Pattern Blood Pressure 151/73 H Blood Pressure Mean 99 Pulse Ox 95 93 Oxygen Delivery Method Room Air Room Air Room Air 11/18/22 19:19 11/18/22 19:19 11/18/22 21:40 Temperature Temperature Source Pulse Rate 61 60 Respiratory Rate 27 H 25 H Respiratory Effort Non-Labored Short of Breath Respiratory Depth Normal Respiratory Pattern Tachypnea Blood Pressure 179/89 H 167/95 H Blood Pressure Mean 119 119 Pulse Ox 93 94 Oxygen Delivery Method Room Air Room Air Room Air MDM <REX Ayala - Last Filed: 11/18/22 23:11> [facility] Narrative Medical decision making narrative: Patient presenting due to increased edema in his lower legs bilaterally and in his face. He has had a 15 pound weight gain since Wednesday. He states his PCP gave him the option to come to the hospital yesterday or try a new diuretic, bumetanide, and see if it helps. Patient chose to try the new diuretic. Patient did not feel that the diuretic was helping and presented to the ED today. He is feeling short of breath but has remained above 94% on room air. Patient's PCP and sheriff sergeant were consulted and both feel that patient would benefit from admission for IV diuretics. He was started on IV Lasix here as well as PO metolazone. Patient's anemia really has not changed much since previous visit. He will be admitted to the hospital for his CHF exacerbation and shortness of breath. Patient and family are comfortable with plan. Lab Data Attestation: I reviewed the patient's lab results. Lab results narrative: RBC 3.77, H&H 10.9 and 34.6, BUN 44, creatinine 3.89, BNP 3485, GFR 16 Labs: Laboratory Results - last 24 hr 11/18/22 11/18/22 11/18/22 20:15 20:15 20:15 WBC 6.2 RBC 3.77 L Hgb 10.9 L Hct 34.6 L MCV 91.8 MCH 28.9 MCHC 31.5 L RDW Std Deviation 56.1 H RDW Coeff of Saloni 16.9 H Plt Count 185 MPV 11.8 Immature Gran % (Auto) 0.300 Neut % (Auto) 60.3 Lymph % (Auto) 17.3 L [place] % (Auto) 18.0 H Eos % (Auto) 2.6 Baso % (Auto) 1.5 H Absolute Neuts (auto) 3.7 Absolute Lymphs (auto) 1.07 Nucleated RBC % 0 Sodium 142 Potassium 4.0 Chloride 108 H Carbon Dioxide 27.0 Anion Gap 7 BUN 44 H Creatinine 3.89 H Estim Creat Clear Calc 12.52 Est GFR (MDRD) Af Amer 19 L Est GFR (MDRD) Non-Af 16 L BUN/Creatinine Ratio 11.3 Glucose 193 H Calcium 8.8 Troponin I High Sens 75 B-Natriuretic Peptide 3485.3 H Radiography Diagnostic Testing: Clinical Impression(s) from Imaging Studies Chest X-Ray 11/18/22 18:30 IMPRESSION: Pulmonary findings appear worse. Electronically Signed: Adi Combs MD at 18:47 EST , Chest x-ray reviewed and interpreted by attending ED physician. EKG Initial EKG: Attestation: I personally reviewed and interpreted this EKG as follows: Comments: Ventricular paced rhythm, no ST elevation. This EKG has also been reviewed and interpreted by attending ED physician. <Dr. Tosin lFeming MD - Last Filed: 11/19/22 01:07> [facility] Lab Data Labs: Laboratory Results - last 24 hr 11/18/22 11/18/22 11/18/22 20:15 20:15 20:15 WBC 6.2 RBC 3.77 L Hgb 10.9 L Hct 34.6 L MCV 91.8 MCH 28.9 MCHC 31.5 L RDW Std Deviation 56.1 H RDW Coeff of Saloni 16.9 H Plt Count 185 MPV 11.8 Immature Gran % (Auto) 0.300 Neut % (Auto) 60.3 Lymph % (Auto) 17.3 L [place] % (Auto) 18.0 H Eos % (Auto) 2.6 Baso % (Auto) 1.5 H Absolute Neuts (auto) 3.7 Absolute Lymphs (auto) 1.07 Nucleated RBC % 0 Sodium 142 Potassium 4.0 Chloride 108 H Carbon Dioxide 27.0 Anion Gap 7 BUN 44 H Creatinine 3.89 H Estim Creat Clear Calc 12.52 Est GFR (MDRD) Af Amer 19 L Est GFR (MDRD) Non-Af 16 L BUN/Creatinine Ratio 11.3 Glucose 193 H Calcium 8.8 Troponin I High Sens 75 B-Natriuretic Peptide 3485.3 H Radiography Diagnostic Testing: Clinical Impression(s) from Imaging Studies Chest X-Ray 11/18/22 18:30 IMPRESSION: Pulmonary findings appear worse. Electronically Signed: Adi Combs MD at 18:47 EST , Treatment and Re-Evaluation Narrative: Patient seen and evaluated with CECILE. I personally interviewed and examined the patient. I was involved in all aspects of patient's orders, interpretation of results, and treatment. Patient presents with family secondary to congestive heart failure concerns. Patient has a history of CHF. He is on Lasix, torsemide, and was started on Bumex yesterday. Granddaughter states that he has had a 15 pound weight gain recently. After adding the third diuretic yesterday she noted increased swelling in his face today and brought him in for evaluation. Patient does report some shortness of breath with exertion. He denies chest pain Patient also has a history of chronic renal failure. He is currently undergoing work-up for access placement to start dialysis. He is not currently on dialysis. Patient sitting upright in bed no acute distress. He is able to speak full sentences. Head neck examination largely unremarkable. Heart is regular rate and rhythm. Lung sounds are diminished at the bases bilaterally. Abdomen is soft and slightly distended. No tenderness on exam. Lower extremity examination was 3-4+ bilateral lower extremity edema. CBC reveals normal white count at 6.2 with hemoglobin of 10.9. Chemistry studies reveal BUN of 44 and a creatinine of 3.89. Glucose is 193. BNP is 3485. Troponin is 75. Patient is given a dose of IV Lasix here. I spoke Dr. Tong as the patient is established with Dr. Henderson. He does feel the patient would benefit from a continuous Lasix infusion. I will speak with hospitalist for admission. Discharge Plan Dx/Rx/DC Orders Clinical Impression: CHF exacerbation, SOB (shortness of breath), CKD (chronic kidney disease), Anemia Disposition Disposition: Acute Care Hospital [facility] Discharge Date/Time: 11/18/22 23:56
[2022-11-18 20:39] LABS: Absolute Lymphocyte Count 1.07 X10^3/uL (0.83-4.51); Absolute Neutrophil Count 3.7 X10^3/uL (2.0-7.7); Basophil# 0.09 X10^3/uL; Basophil% 1.5 % (0-1); Eosinophil# 0.16 X10^3/uL; Eosinophils% 2.6 % (0-5); Hematocrit 34.6 % (40-54); Hemoglobin 10.9 g/dL (13.0-16.5); Lymphocyte # 1.07 X10^3/ul (0.83-4.51); Lymphocyte % 17.3 % (19-41); Mean Corp Hgb Conc 31.5 g/dL (32-36); Mean Corpuscular Hgb 28.9 pg (27.0-32.0); Mean Corpuscular Volume 91.8 fL (80-94); Mean Platelet Vol. 11.8 fl (6.2-12.0); Monocyte# 1.11 X10^3/uL; NRBC Flagged by Analyzer 0 % (0-5); Neutrophil # 3.72 X10^3/uL (2.7-7.7); Neutrophil % 60.3 % (47-70); Platelet Count 185 K/mm3 (150-450); RBC Distribution Width CV 16.9 % (11.6-14.6); RBC Distribution Width SD 56.1 fl (35.1-43.9); Red Blood Count 3.77 M/mm3 (4.6-6.2); White Blood Count 6.2 K/mm3 (4.4-11.0)
[2022-11-18 20:45] LABS: Anion Gap 7 (5-15); BUN 44 mg/dL (7-18); BUN/Creat Ratio 11.3 RATIO (10-20); Calcium,Total 8.8 mg/dL (8.5-10.1); Chloride 108 mmol/L (98-107); Creatinine, Serum 3.89 mg/dL (0.70-1.30); EST Glomerular Filtration Rate 16 mL/min (>60); Est Glom Filt Rate - Afr Amer 19 mL/min (>60); Estimated Creatinine Clearance 12.52 ml/min; Glucose 193 mg/dL (74-106); Sodium Level 142 mmol/L (136-145); Troponin-I HS 75 pg/mL (3.0-78.0)
[2022-11-18] MEDS: Furosemide 20 MG/2 ML VIAL IV (21:39)
[2022-11-18 21:40] VITALS: BP 167/95; PULSE 60; RESP 25; O2SAT 94
[2022-11-18] MEDS: metOLazone 5 MG Tablet PO (22:14)
--- NOTE | 2022-11-18 22:36 | PCM.HP.STD ---
[facility] - General General Date of Admission: 11/18/22 Date of Service: 11/18/22 Chief Complaint: Bilateral lower extremity swelling HPI Narrative JUVENTINO CERNA, is a 82 M with a significant history of heart failure with reduced ejection fraction; CAD status post CABG and adjustment in who presents to the emergency department with 3 to 4-day history of progressively worsening lower extremity swelling. Associated with symptoms is increased weight; shortness of breath and a poor appetite. Also reportedly patient's family think that his face has been swollen Reportedly patient has had recent adjustment in diuretics without any appreciable change. Of note patient is on 2.5 L nasal cannula as needed and nightly. There are plans for patient to get dialysis soon. [facility] Medical History LUCAS (acute kidney injury) Ambulates with cane Amiodarone pulmonary toxicity Anemia Arthritis Atherosclerosis of coronary artery without angina pectoris AV block, Mobitz II BPH (benign prostatic hyperplasia) COPD (chronic obstructive pulmonary disease) Diabetes mellitus, type II Essential hypertension Fibromyalgia Gastric reflux Heart failure with reduced ejection fraction History of steroid therapy Hyperlipidemia Ischemic cardiomyopathy Longstanding persistent atrial fibrillation Loss of hearing Non-smoker Nonrheumatic aortic (valve) stenosis On home oxygen therapy Prostate disease Pulmonary fibrosis Rheumatoid arthritis 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 Symptomatic bradycardia Tinea manus Tinea unguium Weakness Wears glasses Home Medications aspirin 81 mg chewable tablet 81 mg PO DAILY@0800 blood thinner 03/10/14 [History Last Taken 10/29/21] hydroxychloroquine 200 mg tablet 200 mg PO DAILY arthritis 09/26/20 [History Last Taken 11/18/22 08:00] SIMPHONI 1 dose IV BOLUS .QOMONTH ARTHRITIS 09/08/21 [History Last Taken 1 Month Ago ~08/09/21] acetaminophen 500 mg tablet 500 mg PO Q6H PRN PAIN 09/08/21 [History Last Taken 09/07/21] apixaban 2.5 mg tablet (Eliquis) 2.5 mg PO BID A fib 09/08/21 [History Last Taken 10/29/21] calcium carbonate 500 mg calcium (1,250 mg) tablet 500 mg PO DAILY SUPPLEMENT 09/08/21 [History Last Taken 11/04/21] mirtazapine 45 mg tablet 45 mg PO DAILY MOOD 09/08/21 [History Last Taken 11/04/21] ferrous sulfate 325 mg (65 mg iron) tablet 325 mg PO DAILY iron supplement 08/21/22 [History Last Taken 11/18/22 12:00] finasteride 5 mg tablet 5 mg PO DAILY prostate 08/21/22 [History Last Taken Unknown] potassium chloride 20 mEq tablet,extended release 20 meq PO DAILY diuretic 08/21/22 [History Last Taken 11/18/22 08:00] tamsulosin 0.4 mg capsule 0.4 mg PO DAILY prostate 08/21/22 [History Last Taken 11/17/22 21:00] isosorbide dinitrate 20 mg tablet 20 mg PO TID HEART #270 tabs 08/25/22 [Rx Last Taken 11/18/22 12:00] lorazepam 0.5 mg tablet 0.5 mg PO QHS anxiety 10/07/22 [History Last Taken Unknown] bumetanide 1 mg tablet 1 mg PO BID 11/18/22 [History Last Taken Unknown] atorvastatin 40 mg tablet 40 mg PO QHS BP 11/19/22 [History Last Taken 11/17/22 21:00] carvedilol 12.5 mg tablet 12.5 mg PO BID BP 11/19/22 [History Last Taken 11/18/22 08:00] hydralazine 100 mg tablet 100 mg PO TID BP 11/19/22 [History Last Taken 11/18/22 12:00] pantoprazole 40 mg tablet,delayed release 40 mg PO DAILY GERD 11/19/22 [History Last Taken Unknown] torsemide 20 mg tablet 20 mg PO BID diuretic 11/19/22 [History Last Taken 11/18/22 08:00] tramadol 50 mg tablet 50 mg PO TID PRN Pain 11/19/22 [History Last Taken Unknown] Allergy/AdvReac Type Severity Reaction Status Date / Time amiodarone Allergy Mild PT UNSURE Verified 11/18/22 17:51 OF REACTION simvastatin Allergy Mild Other Verified 11/18/22 17:51 hydralazine Allergy PT UNSURE Verified 11/18/22 17:51 OF REACTION Penicillins Allergy Rash Verified 11/18/22 17:51 rosuvastatin [From Crestor] Allergy PT UNSURE Verified 11/18/22 17:51 OF REACTION Family History Other CAD (coronary artery disease) Hypertension Seizures Surgical History H/O coronary artery bypass surgery (07/11/07) History of cholecystectomy (01/2021) History of coronary artery stent placement (05/28/17) History of left heart catheterization (05/06/10) History of lumbar fusion (02/2017) History of permanent cardiac pacemaker placement (07/19/18) History of radiofrequency ablation procedure for cardiac arrhythmia (08/25/13) History of right and left heart catheterization (05/28/17) Hx of appendectomy Hx of bilateral cataract extraction Social History current occupational status: retired Smoking Status: Never smoker alcohol intake: never substance use type: does not use ROS ROS Narrative Pertinent positives and pertinent negatives as noted in HPI. All other systems were reviewed and are negative Vital Signs Vital Signs Vital Signs: 11/18/22 17:51 11/18/22 19:19 11/18/22 19:19 Temperature 98.2 F Temperature Source Temporal Pulse Rate 59 L Respiratory Rate 14 Respiratory Effort Respiratory Depth Respiratory Pattern Blood Pressure 151/73 H Blood Pressure Mean 99 Pulse Ox 95 93 Oxygen Delivery Method Room Air Room Air Room Air 11/18/22 19:19 11/18/22 19:19 11/18/22 21:40 Temperature Temperature Source Pulse Rate 61 60 Respiratory Rate 27 H 25 H Respiratory Effort Non-Labored Short of Breath Respiratory Depth Normal Respiratory Pattern Tachypnea Blood Pressure 179/89 H 167/95 H Blood Pressure Mean 119 119 Pulse Ox 93 94 Oxygen Delivery Method Room Air Room Air Room Air Weight Weight: 90.718 kg Body Mass Index (BMI) 33.3 Physical Exam Narrative Physical exam: General: Well-nourished, well-developed. Head: Normocephalic, atraumatic, no tenderness Eyes: Vision is grossly intact. EOMI ENT, no trauma, moist mucous membranes, no rhinorrhea Neck: Nontender, No thyromegaly. CVS: Regular rate and rhythm. Respiratory : Right basilar rales. chest wall nontender, no wheezing Abdomen: Soft, nontender, nondistended, normal bowel sounds, no masses : Deferred Back: Nontender, no CVA tenderness, no midline spinal tenderness, deformities, step-offs Extremities: 3-4+ bilateral legs and feet edema. Nontender full range of motion, no trauma Skin: Normal color, no trauma, abrasions Neuro: Alert, oriented, cranial nerves II through XII grossly intact. Psychiatry: Normal mood. Normal affect. Not depressed. Not anxious. Results Lab / Micro Data Result Diagrams: 11/19/22 06:10 11/18/22 20:15 Labs: Laboratory Results - last 24 hr 11/18/22 20:15: WBC 6.2, RBC 3.77 L, Hgb 10.9 L, Hct 34.6 L, MCV 91.8, MCH 28.9, MCHC 31.5 L, RDW Std Deviation 56.1 H, RDW Coeff of Saloni 16.9 H, Plt Count 185, MPV 11.8, Immature Gran % (Auto) 0.300, Neut % (Auto) 60.3, Lymph % (Auto) 17.3 L, [place] % (Auto) 18.0 H, Eos % (Auto) 2.6, Baso % (Auto) 1.5 H, Absolute Neuts (auto) 3.7, Absolute Lymphs (auto) 1.07, Nucleated RBC % 0 11/18/22 20:15: Sodium 142, Potassium 4.0, Chloride 108 H, Carbon Dioxide 27.0, Anion Gap 7, BUN 44 H, Creatinine 3.89 H, Estim Creat Clear Calc 12.52, Est GFR (MDRD) Af Amer 19 L, Est GFR (MDRD) Non-Af 16 L, BUN/Creatinine Ratio 11.3, Glucose 193 H, Calcium 8.8, Troponin I High Sens 75 11/18/22 20:15: B-Natriuretic Peptide 3485.3 H Radiology Impression Chest X-Ray 11/18/22 18:30 IMPRESSION: Pulmonary findings appear worse. Electronically Signed: Adi Combs MD at 18:47 EST , Assessment & Plan Assessment/Plan (1) Heart failure: PLAN: Plan Acute Exacerbation of heart failure with reduced ejection fraction. Place on monitored bed on a piece Weight on admission to the floor; and then daily Strict I&O's Chest x-ray independently interpreted showed vascular congestion; bilateral infiltrates; pleural effusion and borderline cardiomegaly. BNP of 3,485.3 Discussed with cardiology. Patient be started on a Lasix drip and Diuril. Last echocardiogram on 09/08/2021: EF of 34%. Stage III diastolic dysfunction. Moderate tricuspid valve insufficiency. Moderate pulmonary hypertension. Pulmonary artery pressure of 60 mmHg. Monitor electrolytes and renal function Trend blood pressure Titrate diuretics and heart failure/blood pressure medications with blood pressure. Ebenezer wrap to bilateral lower extremities Fluid restriction of 1500 mls daily 2 g cardiac diet Telemetry continued. Patient is net candidate of EBENEZER inhibitor secondary to CKD stage IV. Cardiology consult Hypertension Blood pressure is not within goal [Home blood pressure medication] continued. Trend blood pressure and adjust blood pressure medications. A. fib Per home med list Eliquis on hold. Unclear why Eliquis on hold. Hold for now. DVT Prophylaxis: Subcutaneous heparin ordered Charges/Coding Visit Charges Inpatient E&M: 75582 Init Hosp L3
[2022-11-18 23:54] VITALS: BP 174/94; PULSE 69; RESP 18; TEMP 36.8; O2SAT 97
[2022-11-19] VITALS (14 sets, daily range): BP systolic 114–174; BP diastolic 51–92; PULSE 59–61; RESP 15–20; TEMP 36.4–37; O2SAT 93–98; BMI 32.3
[2022-11-19] MEDS: Acetaminophen 325 MG Tablet 650 MG PO ×2 (01:38→21:21)
[2022-11-19] MEDS: Furosemide 500 MG in Empty Viaflex 50 mL 1 EACH CONT INF (01:56)
--- NOTE | 2022-11-19 02:15 | NURSING ---
Admission assessment completed with pt, pt is A&Ox3 lives alone, son and grand daughter live near pt. pt is poor historian. per pt may contact POA, Grand daughter, Kassi for information. Kassi helps to care for pt managing medications, and doctors appointments. pt home medications reviewed. per pt Granddaughter pt takes Ativan Q HS for sleep. per grand daughter pt has gained approximately 10 pounds. per pt grand daughter pt has assistance of home health SCIENCE EDUC[employer] PROFESSOR. grand daughter is updated on pt POC and VS at this time. pt has a history of sleep apnea, pt refuses CPAP, but wears 2.5 L via NC at home. Granddaughter states will be in to visit pt today. DR Granda aware home medication list updated.
[2022-11-19] MEDS: Carvedilol 12.5 MG Tablet PO ×2 (03:19→16:42)
--- NOTE | 2022-11-19 05:43 | NURSING ---
pt noted with 50 ml void and bladder scan with 567 ml in bladder with scan. pt with Lasix drip infusing at this time. physician contacted, straight cath x1. will monitor.
--- NOTE | 2022-11-19 06:31 | NURSING ---
straight cath completed with 250 ml clear yellow urine received, purewick placed on pt.
[2022-11-19] MEDS: Isosorbide DN 20 MG Tablet PO ×3 (06:34→21:19)
[2022-11-19] MEDS: hydrALAZINE 50 MG Tablet 100 MG PO ×3 (06:34→21:18)
[2022-11-19 07:00] LABS: Absolute Lymphocyte Count 1.18 X10^3/uL (0.83-4.51); Absolute Neutrophil Count 3.2 X10^3/uL (2.0-7.7); Basophil# 0.08 X10^3/uL; Basophil% 1.4 % (0-1); Eosinophil# 0.22 X10^3/uL; Hematocrit 34.3 % (40-54); Hemoglobin 10.8 g/dL (13.0-16.5); Lymphocyte # 1.18 X10^3/ul (0.83-4.51); Lymphocyte % 21.3 % (19-41); Mean Corp Hgb Conc 31.5 g/dL (32-36); Mean Corpuscular Hgb 29.1 pg (27.0-32.0); Mean Corpuscular Volume 92.5 fL (80-94); Mean Platelet Vol. 10.9 fl (6.2-12.0); Monocyte# 0.89 X10^3/uL; Monocyte% 16.1 % (0-10); NRBC Flagged by Analyzer 0 % (0-5); Neutrophil # 3.16 X10^3/uL (2.7-7.7); Platelet Count 174 K/mm3 (150-450); RBC Distribution Width SD 56.5 fl (35.1-43.9); Red Blood Count 3.71 M/mm3 (4.6-6.2); White Blood Count 5.5 K/mm3 (4.4-11.0)
[2022-11-19 07:55] LABS: Anion Gap 9 (5-15); BUN 45 mg/dL (7-18); BUN/Creat Ratio 11.6 RATIO (10-20); Calcium,Total 8.9 mg/dL (8.5-10.1); Chloride 106 mmol/L (98-107); Creatinine, Serum 3.87 mg/dL (0.70-1.30); EST Glomerular Filtration Rate 16 mL/min (>60); Est Glom Filt Rate - Afr Amer 19 mL/min (>60); Estimated Creatinine Clearance 12.58 ml/min; Glucose 121 mg/dL (74-106); Potassium 3.5 mmol/L (3.5-5.1); Sodium Level 144 mmol/L (136-145)
[2022-11-19] MEDS: Aspirin 81 MG TAB.CHEW PO (08:17)
[2022-11-19] MEDS: Calcium (Elemental) 500 MG Tablet PO (08:19)
[2022-11-19] MEDS: Pantoprazole Sodium 40 MG Tablet PO (08:31)
[2022-11-19] MEDS: Heparin Injection (Vial) 5,000 UNIT/ML VIAL 5000 UNIT SC (08:31)
[2022-11-19] MEDS: Potassium Chloride Oral Tablet 20 MEQ PO (08:31)
[2022-11-19] MEDS: Ferrous Sulfate 325 MG Tablet PO (08:31)
[2022-11-19] MEDS: 0.9% Saline Lock 10 ML Syringe IV ×2 (08:44→21:29)
--- NOTE | 2022-11-19 10:35 | CON.PCM.CA_ITS ---
Assessment & Plan Assessment/Plan (1) CHF exacerbation: PLAN: The patient appears to have acute on chronic systolic mediated CHF. At the present time the patient has progressive shortness of breath/dyspnea and progressive lower extremity edema despite multiple loop diuretics. He has had elevated BNP. His chest x-ray is abnormal as described above. It was recommended that he be placed in the hospital for additional inpatient evaluation and care. This will include IV diuretics with consideration to IV continuous infusion furosemide and the possibility of additional hydrochlorothiazide type diuretic therapy. It also include recommendation for nephrology consultation as to whether or not the patient requires dialysis sooner than later to assist with his volume status. (2) Atherosclerosis of coronary artery without angina pectoris: PLAN: The patient has a history of CAD. He is without obvious angina pectoris at this time. His initial cardiac enzyme is negative. He is undergone recent noninvasive studies as noted. He does need to continue medical management as best as possible. This would i nclude agents such as aspirin-unless otherwise contraindicated, nitrates, beta- blockers, afterload reducing agents as he is able based upon his other objective findings, vital signs, etc., and lipid-lowering agents. (3) History of coronary artery stent placement: PLAN: He has a history of previous PCI's as noted. His most recent evaluations available for review were noted. At the moment he does need to continue CAD risk factor evaluation/medical therapy. (4) H/O coronary artery bypass surgery: PLAN: He has a history of single-vessel CABG as noted. At the present time he continues risk factor modification medical therapy. (5) Ischemic cardiomyopathy: PLAN: He has recently undergone evaluation with transthoracic echocardiogram. The echocardiogram suggested he has diminished LV systolic function compatible with an ischemic mediated cardiomyopathy. He will continue medical therapy. This will include agents such as nitrates, beta-chad such as his carvedilol/Coreg, diuretic therapy as he is able and tolerates, afterload reducing agents which would include Apresoline/hydralazine based upon his renal insufficiency, potentially the addition of SGLT2 inhibitors. (6) Heart failure with reduced ejection fraction: PLAN: The patient does appear to have heart failure with reduced ejection fraction. He appears to have acute on chronic exacerbation. He has been recommended for further inpatient evaluation and care based upon the aforementioned concerns. He is receiving IV continuous infusion furosemide at this time. He may need additional hydrochlorothiazide type diuretic assistance such as IV Diuril and oral metolazone therapy. He may also need to be considered for dialysis sooner than later. (7) Longstanding persistent atrial fibrillation: PLAN: The patient has a history of atrial fibrillation. He will continue rate limiting therapy. He will continue anticoagulant therapy as he is able based upon his multiple medical issues and his renal insufficiency. Thus far this is included apixaban/Eliquis of 2.5 mg p.o. twice daily. 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 He apparently is undergone EPS/RFA in the past. His rhythm will be monitored. He will continue beta-chad therapy. (9) History of permanent cardiac pacemaker placement: PLAN: The patient has a permanent pacemaker in place. He can be reassessed as needed. (10) Hyperlipidemia: PLAN: The patient will continue lipid-lowering therapy with his atorvastatin. (11) Essential hypertension: PLAN: The patient's blood pressure will need to be followed. His medicines can be adjusted taking into consideration his renal insufficiency. (12) Pulmonary fibrosis: PLAN: The patient has a history of pulmonary fibrosis. He will continue evaluation care per internal medicine and as needed by pulmonology. (13) Stage 4 chronic kidney disease: PLAN: The patient states he is being prepared for end-stage renal failure/hemodialysis. It would be reasonable to have him evaluated by nephrology as to whether or not he needs a temporary dialysis catheter placed to initiate dialysis sooner than later to assist with his volume control. Addt'l Comments The patient's case has been discussed and reviewed with the patient, previously with Dr. Fleming of the [facility] emergency department staff, and Dr. Granda of the [facility] staff. Comment: Time spent in the patient's overall evaluation/care/documentation/discussions, etc.: 60-minute HPI Consult Data Date of Consult: 11/19/22 HPI Narrative HPI Narrative: JUVENTINO CERNA, is a 82 year old white male who presents for cardiovascular consultation based upon concerns of progressive shortness of breath/dyspnea, progressive lower extremity edema, progressive weight gain (reported as approximately 15 pounds), despite being on 3 different oral loop diuretics, superimposed upon a history of CAD, PCI, CABG, ischemic mediated cardiomyopathy, atrial fibrillation, ventricular tachycardia (RVOT-VT), status post EPS/RFA, status post permanent pacemaker placement, hyperlipidemia, hypertension, pulmonary fibrosis, end-stage renal disease pending initiation of chronic hemodialysis. The patient states that he has been on multiple diuretics at home including torsemide/Demadex, the addition of furosemide/Lasix, and recently the addition of Bumex. He believes he has been taking a combination of 2 or 3 of the diuretics together. He states despite his attempts at diuresis he has had progressive shortness of breath and dyspnea and lower extremity peripheral pitting edema and progressive weight gain. He was brought to the [facility] emergency department for additional evaluation and care. After evaluation in the emergency department he was recommended by the ED staff for inpatient evaluation and care with IV diuretic therapy. The patient has denied any ongoing chest discomfort. He states his main problem has been his shortness of breath and dyspnea and progressive lower extremity peripheral pitting edema. He has denied any near-syncope or syncope. He states he does wear oxygen therapy at home both daytime when he needs it and more so at night. In the emergency department his high-sensitivity troponin I level was negative. His ECG appeared to demonstrate an electronic ventricular paced rhythm. His chest x-ray, upon review, demonstrated postsurgical changes with sternotomy wires, left-sided dual-chamber permanent pacemaker, increased pulmonary vascularity, positive right pleural effusion. Also, it is noted he had an elevated BNP level of three 485.3 and an elevated BUN of 45 and a creatinine level of 3.87. It appears compared to previous creatinine levels that his overall creatinine level has gradually increased. He states he has been evaluated by nephrology in the past. He was told he needs to be prepared for dialysis therapy. He states this was to include evaluation and placement of an AV fistula. [facility] Medical History LUCAS (acute kidney injury) Ambulates with cane Amiodarone pulmonary toxicity Anemia Arthritis Atherosclerosis of coronary artery without angina pectoris AV block, Mobitz II BPH (benign prostatic hyperplasia) COPD (chronic obstructive pulmonary disease) Diabetes mellitus, type II Essential hypertension Fibromyalgia Gastric reflux Heart failure with reduced ejection fraction History of steroid therapy Hyperlipidemia Ischemic cardiomyopathy Longstanding persistent atrial fibrillation Loss of hearing Non-smoker Nonrheumatic aortic (valve) stenosis On home oxygen therapy Prostate disease Pulmonary fibrosis Rheumatoid arthritis 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 Symptomatic bradycardia Tinea manus Tinea unguium Weakness Wears glasses Home Medications aspirin 81 mg chewable tablet 81 mg PO DAILY@0800 blood thinner 03/10/14 [Hist ory Last Taken 10/29/21] hydroxychloroquine 200 mg tablet 200 mg PO DAILY arthritis 09/26/20 [History Last Taken 11/18/22 08:00] SIMPHONI 1 dose IV BOLUS .QOMONTH ARTHRITIS 09/08/21 [History Last Taken 1 Month Ago ~08/09/21] acetaminophen 500 mg tablet 500 mg PO Q6H PRN PAIN 09/08/21 [History Last Taken 09/07/21] apixaban 2.5 mg tablet (Eliquis) 2.5 mg PO BID A fib 09/08/21 [History Last Taken 10/29/21] calcium carbonate 500 mg calcium (1,250 mg) tablet 500 mg PO DAILY SUPPLEMENT 09/08/21 [History Last Taken 11/04/21] mirtazapine 45 mg tablet 45 mg PO DAILY MOOD 09/08/21 [History Last Taken ] ferrous sulfate 325 mg (65 mg iron) tablet 325 mg PO DAILY iron supplement 08/21/22 [History Last Taken 11/18/22 12:00] finasteride 5 mg tablet 5 mg PO DAILY prostate 08/21/22 [History Last Taken Unknown] potassium chloride 20 mEq tablet,extended release 20 meq PO DAILY diuretic 08/21/22 [History Last Taken 11/18/22 08:00] tamsulosin 0.4 mg capsule 0.4 mg PO DAILY prostate 08/21/22 [History Last Taken 11/17/22 21:00] isosorbide dinitrate 20 mg tablet 20 mg PO TID HEART #270 tabs 08/25/22 [Rx Last Taken 11/18/22 12:00] lorazepam 0.5 mg tablet 0.5 mg PO QHS anxiety 10/07/22 [History Last Taken Unknown] bumetanide 1 mg tablet 1 mg PO BID 11/18/22 [History Last Taken Unknown] atorvastatin 40 mg tablet 40 mg PO QHS BP 11/19/22 [History Last Taken 11/17/22 21:00] carvedilol 12.5 mg tablet 12.5 mg PO BID BP 11/19/22 [History Last Taken 11/18/22 08:00] hydralazine 100 mg tablet 100 mg PO TID BP 11/19/22 [History Last Taken 11/18/22 12:00] pantoprazole 40 mg tablet,delayed release 40 mg PO DAILY GERD 11/19/22 [History Last Taken Unknown] torsemide 20 mg tablet 20 mg PO BID diuretic 11/19/22 [History Last Taken 11/18/22 08:00] tramadol 50 mg tablet 50 mg PO TID PRN Pain 11/19/22 [History Last Taken Unknown] Allergy/AdvReac Type Severity Reaction Status Date / Time amiodarone Allergy Mild PT UNSURE Verified 11/18/22 17:51 OF REACTION simvastatin Allergy Mild Other Verified 11/18/22 17:51 hydralazine Allergy PT UNSURE Verified 11/18/22 17:51 OF REACTION Penicillins Allergy Rash Verified 11/18/22 17:51 rosuvastatin [From Crestor] Allergy PT UNSURE Verified 11/18/22 17:51 OF REACTION Family History Other CAD (coronary artery disease) Hypertension Seizures Surgical History H/O coronary artery bypass surgery (07/11/07) History of cholecystectomy (01/2021) History of coronary artery stent placement (05/28/17) History of left heart catheterization (05/06/10) History of lumbar fusion (02/2017) History of permanent cardiac pacemaker placement (07/19/18) History of radiofrequency ablation procedure for cardiac arrhythmia (08/25/13) History of right and left heart catheterization (05/28/17) Hx of appendectomy Hx of bilateral cataract extraction Social History current occupational status: retired Smoking Status: Never smoker alcohol intake: never substance use type: does not use ROS Constitutional Constitutional: Reports as per HPI Eyes Eyes: Reports as per HPI ENT HEENT: Reports as per HPI Cardiovascular Cardiovascular: Reports dyspnea, dyspnea at rest, dyspnea on exertion and leg edema Respiratory/Chest Respiratory/Chest: Reports dyspnea and dyspnea on exertion Gastrointestinal Gastrointestinal: Reports as per HPI Genitourinary Genitourinary: Reports as per HPI Musculoskeletal Musculoskeletal: Reports as per HPI Integumentary Integumentary: Reports as per HPI Neurologic Neurologic: Reports as per HPI Physical Exam Const alert, oriented x3 and no apparent distress Orientation / Consciousness: awake HEENT normocephalic, head/scalp atraumatic and hearing grossly normal bilaterally Eyes PERRL, EOMs intact bilaterally, conjunctivae normal and no scleral icterus Neck full ROM and supple Carotids: normal carotid upstroke Chest Chest: midline sternotomy incision Resp Auscultation: rales diffuse and diminished lung sounds right lower Cardio regular rate, regular rhythm, S1 normal heart sound and S2 normal heart sound Cardio Narrative: Diminished heart tones GI normal to inspection, nondistended, normoactive bowel sounds Extremity General Extremity: edema bilateral lower extremity (Positive Ebenezer wraps in place) Details: moderate Skin no rashes or lesions noted Psych mental status grossly normal Risk Stratification Risk Stratification Applicable: Yes Age >/= 65: Yes >/= 3 CAD Risk Factors (HTN, HLD, DM, family hx of CAD, or current smoker): Yes Aspirin Use in the Past 7 Days: Yes Severe Angina (>/= episodes in 24 hours): No EKG ST Changes >/= 0.5mm: No Positive Cardiac Marker: No AMANDO Risk Stratification Score: 3 AMANDO % Risk: 13% Risk Procedure Criteria Type of Procedure Procedure Type: Elective Elective Risks - COVID COVID Risk Discussion: The surgeon/proceduralist and patient have discussed in detail the risk of exposure to and/or potential harm posed by the COVID-19 virus with having a surgery/procedure at this time versus the risk of delaying the surgery/procedure. It is not possible to know either the risk of delaying the surgery or procedure or chance of getting an infection with perfect accuracy, but a joint decision was made between the patient and the surgeon/proceduralist to proceed at this time with the scheduled surgery/procedure as indicated on the consent form. Objective Data Vital Signs: Vital Signs Temp Pulse Resp BP Pulse Ox O2 Del Method O2 Flow Rate 97.7 F L 59 L 15 168/75 H 96 Room Air 2.5 11/19/22 08:10 11/19/22 08:10 11/19/22 08:10 11/19/22 08:10 11/19/22 08:10 11/19/22 08:40 11/19/22 03:14 Oxygen Flow Rate (L/min) 2.5 Oxygen Delivery Method Room Air Weight: 194 lb 0.108 oz Body Mass Index (BMI) 32.3 Intake & Output: Intake and Output for Last 24 Hours 11/17/22 11/18/22 11/19/22 23:59 23:59 23:59 Output Total 567 / 567 Balance -567 / -567 Lab / Micro Data Result Diagrams: 11/19/22 06:10 11/19/22 06:10 Labs: Laboratory Results - last 24 hr 11/18/22 20:15: WBC 6.2, RBC 3.77 L, Hgb 10.9 L, Hct 34.6 L, MCV 91.8, MCH 28.9, MCHC 31.5 L, RDW Std Deviation 56.1 H, RDW Coeff of Saloni 16.9 H, Plt Count 185, MPV 11.8, Immature Gran % (Auto) 0.300, Neut % (Auto) 60.3, Lymph % (Auto) 17.3 L, Cidra % (Auto) 18.0 H, Eos % (Auto) 2.6, Baso % (Auto) 1.5 H, Absolute Neuts (auto) 3.7, Absolute Lymphs (auto) 1.07, Nucleated RBC % 0 11/18/22 20:15: Sodium 142, Potassium 4.0, Chloride 108 H, Carbon Dioxide 27.0, Anion Gap 7, BUN 44 H, Creatinine 3.89 H, Estim Creat Clear Calc 12.52, Est GFR (MDRD) Af Amer 19 L, Est GFR (MDRD) Non-Af 16 L, BUN/Creatinine Ratio 11.3, Glucose 193 H, Calcium 8.8, Troponin I High Sens 75 11/18/22 20:15: B-Natriuretic Peptide 3485.3 H 11/19/22 06:10: WBC 5.5, RBC 3.71 L, Hgb 10.8 L, Hct 34.3 L, MCV 92.5, MCH 29.1, MCHC 31.5 L, RDW Std Deviation 56.5 H, RDW Coeff of Saloni 17.0 H, Plt Count 174, MPV 10.9, Immature Gran % (Auto) 0.200, Neut % (Auto) 57.0, Lymph % (Auto) 21.3, Cidra % (Auto) 16.1 H, Eos % (Auto) 4.0, Baso % (Auto) 1.4 H, Absolute Neuts (auto) 3.2, Absolute Lymphs (auto) 1.18, Nucleated RBC % 0 11/19/22 06:10: Sodium 144, Potassium 3.5, Chloride 106, Carbon Dioxide 29.0, Anion Gap 9, BUN 45 H, Creatinine 3.87 H, Estim Creat Clear Calc 12.58, Est GFR (MDRD) Af Amer 19 L, Est GFR (MDRD) Non-Af 16 L, BUN/Creatinine Ratio 11.6, Glucose 121 H, Calcium 8.9 Cardiology Labs/Tests 11/18/22 20:15: WBC 6.2, RBC 3.77 L, Hgb 10.9 L, Hct 34.6 L, MCV 91.8, MCH 28.9, MCHC 31.5 L, Plt Count 185, MPV 11.8, Immature Gran % (Auto) 0.300, Neut % (Auto) 60.3, Lymph % (Auto) 17.3 L, Cidra % (Auto) 18.0 H, Eos % (Auto) 2.6, Baso % (Auto) 1.5 H, Absolute Neuts (auto) 3.7, Nucleated RBC % 0 11/18/22 20:15: Sodium 142, Potassium 4.0, Chloride 108 H, Carbon Dioxide 27.0, Anion Gap 7, BUN 44 H, Creatinine 3.89 H, Est GFR (MDRD) Af Amer 19 L, Est GFR (MDRD) Non-Af 16 L, BUN/Creatinine Ratio 11.3, Glucose 193 H, Calcium 8.8 11/18/22 20:15: B-Natriuretic Peptide 3485.3 H 11/19/22 06:10: WBC 5.5, RBC 3.71 L, Hgb 10.8 L, Hct 34.3 L, MCV 92.5, MCH 29.1, MCHC 31.5 L, Plt Count 174, MPV 10.9, Immature Gran % (Auto) 0.200, Neut % (Auto) 57.0, Lymph % (Auto) 21.3, Cidra % (Auto) 16.1 H, Eos % (Auto) 4.0, Baso % (Auto) 1.4 H, Absolute Neuts (auto) 3.2, Nucleated RBC % 0 11/19/22 06:10: Sodium 144, Potassium 3.5, Chloride 106, Carbon Dioxide 29.0, Anion Gap 9, BUN 45 H, Creatinine 3.87 H, Est GFR (MDRD) Af Amer 19 L, Est GFR (MDRD) Non-Af 16 L, BUN/Creatinine Ratio 11.6, Glucose 121 H, Calcium 8.9 Rhythm: Electronic ventricular paced rhythm EKG: Electronic ventricular paced rhythm ECHO: 09-08-2022 Interpretation Summary Normal LV size. Mild to moderate global left ventricular systolic dysfunction. The estimated ejection fraction is 40 %. There is mild to moderate global hypokinesis of the left ventricle. There is mild mitral annular calcification. Mild (1+) eccentric mitral valve insufficiency. Pulmonary artery systolic pressure is 56 mmHg. Stage 3 diastolic dysfunction. Compared to previous study, the left ventricular systolic function has improved.. Stress Test: 09-08-2022 Stress Test Report Pharmacologic cardial perfusion stress test. 82-year-old male with a history of coronary artery disease. Stress protocol: Resting EKG demonstrates underlying atrial fibrillation with pacemaker activity noted at 61 bpm.? 0.4 mg of regadenoson was infused per usual protocol followed by rapid intravenous saline flush injection.? The maximum heart rate attained was 64 bpm which was 46% of max impacted heart rate the maximum workload was 1 metabolic equivalent.? Patient maintained atrial fibrillation with ventricular pacing and occasional premature ventricular complex noted.? The final blood pressure was 138/62 mmHg there were no changes noted to suggest ischemia pacemaker activity was noted. Myocardial perfusion protocol. 14.1 mCi of technetium 99m sestamibi was injected at rest.? 0.4 mg of regadenoson was infused per usual protocol.? At peak infusion 43.8 mCi of technetium 99m sestamibi was injected stress images were obtained stress and rest images were reconstructed in comparing the short axis vertical long and horizontal long axis.? Gated images were also obtained. Perfusion SPECT analysis: Review of the stress images demonstrate normal cardiac silhouette size.? There is uniform uptake of tracer noted in all areas of the myocardium except for the apex.? This is present on the stress and rest images to a similar extent.? A previous apical infarct cannot be excluded.? No areas of reversibility are noted suggest ischemia. Gated SPECT analysis: The gated ejection fraction is 37%. Conclusion: Normal pharmacologic myocardial perfusion stress test. Underlying atrial fibrillation and left bundle pacing activity No ischemia present. Cardiac Cath: 05-07-2010: [facility] Normal LV systolic function. Estimated LVEF 60% LVEDP is severely elevated measuring-25 mmHg Left main: Mild calcification LAD: Mild calcification LAD: Intravascular ultrasound: 5.6 mm?-approximately 50% stenosis LCx: No obstructive disease RCA: 99% stenosis status post one-vessel CABG with patent SVG to the distal RCA Patent right and left renal arteries by nonselective angiogram Recommendations: Aggressive medical management Cardiac catheterization: PCI: 05-28-2017: [facility] Right heart cath: Normal filling pressures and normal cardiac output Left heart cath: LAD: 70% stenosis (subsequently stented First diagonal branch: Proximal 50% stenosis LCx: Mid 30% stenosis Right coronary artery: Proximal 90% stenosis LAD PCI: Drug-eluting stent: 3.[address] Surgery: 07-11-2007: [facility]: Single-vessel CABG: SVG to the RCA Radiography Diagnostic Testing: Radiology Impression Chest X-Ray 11/18/22 18:30 IMPRESSION: Pulmonary findings appear worse. Electronically Signed: Adi Combs MD at 18:47 EST ,
--- NOTE | 2022-11-19 10:50 | CASEMGMT ---
JOSE PENA Face to Face with patient for initial transition planning/care coordination assessment. RN JEAN introduced self and role at [facility]. Patient sitting in chair, alert and oriented. Patient willing to participate in assessment and is able to answer all questions appropriately. Care providers, pharmacy, and demographics verified. Patient wishes to discharge home, but willing to go to SNF if needed. Patient states he has no further needs or concerns at this time. CM to follow for discharge planning needs that may arise. PCP: Kateryna Specialists: Beatriz glass blower Preferred Pharmacy: [facility] Insurance: [facility] Prescription Benefit: yes Living Will/HPOA: yes, granddaughter Leela SCHAFFER: son, granddaughter Living Arrangements: Patient lives alone in an apartment next to his son. Apartment is on the first floor with 6 steps to enter with railing . Patient states he is independent at home. Transportation: granddaughter, son DME/HHC: Patient states he has shower chair, cane, grab bars, walker, wheelchair, and oxygen at HS but unsure of company. Patient states he has had HHC in the past but cannot recall agency name. Disposition Plan: TBD anticipate HHC vs SNF. Dottie SEBASTIAN, RN, CM
--- NOTE | 2022-11-19 12:33 | PN.HOSP_ITS ---
Subjective Subjective Doing well, no issues overnight. Currently on a Lasix drip. Per family his swelling is about the same in his feet but he states that his breathing is a little bit better Objective Data Objective Data Vital Signs: Vital Signs Temp Pulse Resp BP Pulse Ox O2 Del Method O2 Flow Rate 97.7 F L 59 L 15 168/75 H 96 Room Air 2.5 11/19/22 08:10 11/19/22 08:10 11/19/22 08:10 11/19/22 08:10 11/19/22 08:10 11/19/22 08:40 11/19/22 03:14 Oxygen Flow Rate (L/min) 2.5 Oxygen Delivery Method Room Air Weight: 194 lb 0.108 oz Body Mass Index (BMI) 32.3 Intake & Output: Intake and Output for Last 24 Hours 11/18/22 11/19/22 11/20/22 03:59 03:59 03:59 Intake Total 360 / 360 Output Total 1267 / 1267 Balance -907 / -907 Lab / Micro Data Result Diagrams: 11/19/22 06:10 11/19/22 06:10 Labs: Laboratory Results - last 24 hr 11/18/22 20:15: WBC 6.2, RBC 3.77 L, Hgb 10.9 L, Hct 34.6 L, MCV 91.8, MCH 28.9, MCHC 31.5 L, RDW Std Deviation 56.1 H, RDW Coeff of Saloni 16.9 H, Plt Count 185, MPV 11.8, Immature Gran % (Auto) 0.300, Neut % (Auto) 60.3, Lymph % (Auto) 17.3 L, [place] % (Auto) 18.0 H, Eos % (Auto) 2.6, Baso % (Auto) 1.5 H, Absolute Neuts (auto) 3.7, Absolute Lymphs (auto) 1.07, Nucleated RBC % 0 11/18/22 20:15: Sodium 142, Potassium 4.0, Chloride 108 H, Carbon Dioxide 27.0, Anion Gap 7, BUN 44 H, Creatinine 3.89 H, Estim Creat Clear Calc 12.52, Est GFR (MDRD) Af Amer 19 L, Est GFR (MDRD) Non-Af 16 L, BUN/Creatinine Ratio 11.3, Glu cose 193 H, Calcium 8.8, Troponin I High Sens 75 11/18/22 20:15: B-Natriuretic Peptide 3485.3 H 11/19/22 06:10: WBC 5.5, RBC 3.71 L, Hgb 10.8 L, Hct 34.3 L, MCV 92.5, MCH 29.1, MCHC 31.5 L, RDW Std Deviation 56.5 H, RDW Coeff of Saloni 17.0 H, Plt Count 174, MPV 10.9, Immature Gran % (Auto) 0.200, Neut % (Auto) 57.0, Lymph % (Auto) 21.3, [place] % (Auto) 16.1 H, Eos % (Auto) 4.0, Baso % (Auto) 1.4 H, Absolute Neuts (auto) 3.2, Absolute Lymphs (auto) 1.18, Nucleated RBC % 0 11/19/22 06:10: Sodium 144, Potassium 3.5, Chloride 106, Carbon Dioxide 29.0, Anion Gap 9, BUN 45 H, Creatinine 3.87 H, Estim Creat Clear Calc 12.58, Est GFR (MDRD) Af Amer 19 L, Est GFR (MDRD) Non-Af 16 L, BUN/Creatinine Ratio 11.6, Glu cose 121 H, Calcium 8.9 Radiography Diagnostic Testing: Radiology Impression Chest X-Ray 11/18/22 18:30 IMPRESSION: Pulmonary findings appear worse. Electronically Signed: Adi Combs MD at 18:47 EST Reading Location ID and State: [address] [place] [address] , Service support , Physical Exam Narrative General: Alert, Oriented x3, Cooperative, No apparent distress HEENT: Atraumatic, PERRLA, EOMI, Normocephalic Oral: Moist Mucosa Neck: Supple, No JVD Lungs: Diminished, Normal air movement, No rhonchi, No wheeze, No rales Cardiovascular: Regular rate, Regular Rhythm, Normal S1, Normal S2, No murmurs Abdomen: Soft, Non Tender, Non-Distended, No Hepato-splenomegaly Extremities: Edema, Capillary Refill Less than 3 Seconds Skin: No rashes, No breakdown Musculoskeletal: No Tenderness to Palpation of Joints or Extremities Neurological: Cranial nerves II-XII grossly intact, Motor Exam 5/5 strength throughout, Sensory exam intact to light touch and pain Psych/Mental Status: Normal Affect, Appropriate Assessment & Plan Assessment/Plan (1) Heart failure: PLAN: Plan 1. Acute on chronic systolic CHF exacerbation/HTN/HLD/CAD status post CABG and stent/persistent A. fib/chronic renal failure ? We will continue with the Lasix drip and monitor his renal function closely, he is approaching the point where he may need dialysis so we will consult nephrology ? Renal function has steadily been worsening over the last couple years ? Appreciate cardiology's assistance ? Continue with his aspirin and his Eliquis as well as Lipitor ? Continue with his blood pressure medications ? Continue with Lasix drip 2. Rheumatoid arthritis ? Stable ? Continue with Plaquenil 3. GERD ? Stable ? Continue with PPI 4. BPH ? Stable ? Continue with Flomax 5. Depression ? Stable ? Continue with Remeron DVT: Lenny Charges/Coding Visit Charges Inpatient E&M: 26091 Subs Hosp L2
[2022-11-19] MEDS: Tamsulosin HCl 0.4 MG Capsule PO (13:05)
[2022-11-19] MEDS: Hydroxychloroquine 200 MG Tablet PO (13:05)
[2022-11-19] MEDS: Finasteride 5 MG Tablet PO (13:05)
--- NOTE | 2022-11-19 14:27 | CON.PCM.RE_ITS ---
Assessment & Plan Assessment/Plan (1) Stage 4 chronic kidney disease: PLAN: Closer to stage V at this point. Creatinine is between 3.5-4.0. Estimated GFR 12. Has significant volume overload on exam. Last echocardiogram with ejection fraction of 40%. At home he was on loop diuretics along with metolazone. At the time of last visit, a referral for vascular surgery was placed. He was scheduled to have vein mapping yesterday and appointment with vascular surgery on the . We will have to reschedule the vein mapping and keep vascular surgery appointment as planned. Has significant volume overload, almost 20 pounds of weight gain. Currently on Lasix drip along with chlorothiazide. Urine output is good. No uremia. No acute indications for dialysis today but he is fairly borderline. We may have to start dialysis with a tunneled dialysis line if renal function worsens. Called and spoke to Leela who is granddaughter/POA. (2) CHF exacerbation: (3) SOB (shortness of breath): HPI Consult Data Date of Consult: 11/19/22 HPI Narrative Reason for Consultation: CKD stage V HPI Narrative: JUVENTINO CERNA, is a 82 M who presents to the hospital with worsening shortness of breath. Nephrology on consultation due to CKD stage IV/V. He has known history of congestive heart failure with low ejection fraction, follows with cardiology. Was seen in office by Dr. collier/Dr. Chan recently. Baseline creatinine is between 3.5-4. No recent hospitalizations for fluid overload within the last 1 year. Apparently gained almost 20 pounds, associated lower extremity edema and shortness of breath for the last 1 week. I called and spoke to Leela his daug hter-in-law/POA. He was taking diuretics as prescribed. Currently on Lasix drip along with chlorothiazide. Urine output has been good. Breathing is better since admission. No other uremic signs or symptoms. [facility] Medical History LUCAS (acute kidney injury) Ambulates with cane Amiodarone pulmonary toxicity Anemia Arthritis Atherosclerosis of coronary artery without angina pectoris AV block, Mobitz II BPH (benign prostatic hyperplasia) COPD (chronic obstructive pulmonary disease) Diabetes mellitus, type II Essential hypertension Fibromyalgia Gastric reflux Heart failure with reduced ejection fraction History of steroid therapy Hyperlipidemia Ischemic cardiomyopathy Longstanding persistent atrial fibrillation Loss of hearing Non-smoker Nonrheumatic aortic (valve) stenosis On home oxygen therapy Prostate disease Pulmonary fibrosis Rheumatoid arthritis 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 Symptomatic bradycardia Tinea manus Tinea unguium Weakness Wears glasses Home Medications aspirin 81 mg chewable tablet 81 mg PO DAILY@0800 blood thinner 03/10/14 [History Last Taken 10/29/21] hydroxychloroquine 200 mg tablet 200 mg PO DAILY arthritis 09/26/20 [History Last Taken 11/18/22 08:00] SIMPHONI 1 dose IV BOLUS .QOMONTH ARTHRITIS 09/08/21 [History Last Taken 1 Month Ago ~08/09/21] acetaminophen 500 mg tablet 500 mg PO Q6H PRN PAIN 09/08/21 [History Last Taken 09/07/21] apixaban 2.5 mg tablet (Eliquis) 2.5 mg PO BID A fib 09/08/21 [History Last Taken 10/29/21] calcium carbonate 500 mg calcium (1,250 mg) tablet 500 mg PO DAILY SUPPLEMENT 09/08/21 [History Last Taken 11/04/21] mirtazapine 45 mg tablet 45 mg PO DAILY MOOD 09/08/21 [History Last Taken 11/04/21] ferrous sulfate 325 mg (65 mg iron) tablet 325 mg PO DAILY iron supplement 08/21/22 [History Last Taken 11/18/22 12:00] finasteride 5 mg tablet 5 mg PO DAILY prostate 08/21/22 [History Last Taken Unknown] potassium chloride 20 mEq tablet,extended release 20 meq PO DAILY diuretic 08/21/22 [History Last Taken 11/18/22 08:00] tamsulosin 0.4 mg capsule 0.4 mg PO DAILY prostate 08/21/22 [History Last Taken 11/17/22 21:00] isosorbide dinitrate 20 mg tablet 20 mg PO TID HEART #270 tabs 08/25/22 [Rx Last Taken 11/18/22 12:00] lorazepam 0.5 mg tablet 0.5 mg PO QHS anxiety 10/07/22 [History Last Taken Unknown] bumetanide 1 mg tablet 1 mg PO BID 11/18/22 [History Last Taken Unknown] atorvastatin 40 mg tablet 40 mg PO QHS BP 11/19/22 [History Last Taken 11/17/22 21:00] carvedilol 12.5 mg tablet 12.5 mg PO BID BP 11/19/22 [History Last Taken 11/18/22 08:00] hydralazine 100 mg tablet 100 mg PO TID BP 11/19/22 [History Last Taken 11/18/22 12:00] pantoprazole 40 mg tablet,delayed release 40 mg PO DAILY GERD 11/19/22 [History Last Taken Unknown] torsemide 20 mg tablet 20 mg PO BID diuretic 11/19/22 [History Last Taken 11/18/22 08:00] tramadol 50 mg tablet 50 mg PO TID PRN Pain 11/19/22 [History Last Taken Unknown] Allergy/AdvReac Type Severity Reaction Status Date / Time amiodarone Allergy Mild PT UNSURE Verified 11/18/22 17:51 OF REACTION simvastatin Allergy Mild Other Verified 11/18/22 17:51 hydralazine Allergy PT UNSURE Verified 11/18/22 17:51 OF REACTION Penicillins Allergy Rash Verified 11/18/22 17:51 rosuvastatin [From Crestor] Allergy PT UNSURE Verified 11/18/22 17:51 OF REACTION Family History Other CAD (coronary artery disease) Hypertension Seizures Surgical History H/O coronary artery bypass surgery (07/11/07) History of cholecystectomy (01/2021) History of coronary artery stent placement (05/28/17) History of left heart catheterization (05/06/10) History of lumbar fusion (02/2017) History of permanent cardiac pacemaker placement (07/19/18) History of radiofrequency ablation procedure for cardiac arrhythmia (08/25/13) History of right and left heart catheterization (05/28/17) Hx of appendectomy Hx of bilateral cataract extraction Social History current occupational status: retired Smoking Status: Never smoker alcohol intake: never substance use type: does not use ROS ROS Narrative Negative except above Physical Exam Narrative Alert awake oriented x 3 no obvious distress no pallor no icterus no JVD s1s2 no murmurs lungs clear abdomen soft no organomegaly +++ edema no cyanosis hui + Lab / Micro Data Result Diagrams: 11/19/22 06:10 11/19/22 06:10 Labs: Laboratory Results - last 24 hr 11/18/22 20:15: WBC 6.2, RBC 3.77 L, Hgb 10.9 L, Hct 34.6 L, MCV 91.8, MCH 28.9, MCHC 31.5 L, RDW Std Deviation 56.1 H, RDW Coeff of Saloni 16.9 H, Plt Count 185, MPV 11.8, Immature Gran % (Auto) 0.300, Neut % (Auto) 60.3, Lymph % (Auto) 17.3 L, [place] % (Auto) 18.0 H, Eos % (Auto) 2.6, Baso % (Auto) 1.5 H, Absolute Neuts (auto) 3.7, Absolute Lymphs (auto) 1.07, Nucleated RBC % 0 11/18/22 20:15: Sodium 142, Potassium 4.0, Chloride 108 H, Carbon Dioxide 27.0, Anion Gap 7, BUN 44 H, Creatinine 3.89 H, Estim Creat Clear Calc 12.52, Est GFR (MDRD) Af Amer 19 L, Est GFR (MDRD) Non-Af 16 L, BUN/Creatinine Ratio 11.3, Glucose 193 H, Calcium 8.8, Troponin I High Sens 75 11/18/22 20:15: B-Natriuretic Peptide 3485.3 H 11/19/22 06:10: WBC 5.5, RBC 3.71 L, Hgb 10.8 L, Hct 34.3 L, MCV 92.5, MCH 29.1, MCHC 31.5 L, RDW Std Deviation 56.5 H, RDW Coeff of Saloni 17.0 H, Plt Count 174, MPV 10.9, Immature Gran % (Auto) 0.200, Neut % (Auto) 57.0, Lymph % (Auto) 21.3, [place] % (Auto) 16.1 H, Eos % (Auto) 4.0, Baso % (Auto) 1.4 H, Absolute Neuts (auto) 3.2, Absolute Lymphs (auto) 1.18, Nucleated RBC % 0 11/19/22 06:10: Sodium 144, Potassium 3.5, Chloride 106, Carbon Dioxide 29.0, Anion Gap 9, BUN 45 H, Creatinine 3.87 H, Estim Creat Clear Calc 12.58, Est GFR (MDRD) Af Amer 19 L, Est GFR (MDRD) Non-Af 16 L, BUN/Creatinine Ratio 11.6, Glucose 121 H, Calcium 8.9 Radiology Impression Chest X-Ray 11/18/22 18:30 IMPRESSION: Pulmonary findings appear worse. Electronically Signed: Adi Combs MD at 18:47 EST Reading Location ID and State: [facility] / [place] , Service support ,
[2022-11-19] MEDS: LORazepam 0.5 MG Tablet PO (21:18)
[2022-11-19] MEDS: Atorvastatin Calcium 40 MG Tablet PO (21:19)
[2022-11-19] MEDS: Mirtazapine 15 MG Tablet 45 MG PO (21:19)
[2022-11-19] MEDS: APIXABAN 2.5 MG TABLET (WCH) PO (21:20)
[2022-11-20] VITALS (12 sets, daily range): BP systolic 105–164; BP diastolic 56–72; PULSE 60–70; RESP 16–20; TEMP 36.4–36.7; O2SAT 92–96
[2022-11-20] MEDS: Furosemide 500 MG in Empty Viaflex 50 mL 1 EACH CONT INF (04:21)
--- NOTE | 2022-11-20 05:25 | NURSING ---
pt noted to have SP02 85% while sleeping on Room pt recovered without O2 present.
[2022-11-20] MEDS: hydrALAZINE 50 MG Tablet 100 MG PO ×3 (05:27→22:00)
[2022-11-20] MEDS: Isosorbide DN 20 MG Tablet PO ×3 (05:27→22:00)
[2022-11-20 06:32] LABS: Absolute Lymphocyte Count 1.02 X10^3/uL (0.83-4.51); Absolute Neutrophil Count 3.7 X10^3/uL (2.0-7.7); Basophil# 0.08 X10^3/uL; Basophil% 1.3 % (0-1); Eosinophil# 0.42 X10^3/uL; Eosinophils% 6.8 % (0-5); Hematocrit 34.9 % (40-54); Lymphocyte # 1.02 X10^3/ul (0.83-4.51); Lymphocyte % 16.4 % (19-41); Mean Corp Hgb Conc 31.5 g/dL (32-36); Mean Corpuscular Hgb 28.6 pg (27.0-32.0); Mean Corpuscular Volume 90.6 fL (80-94); Mean Platelet Vol. 11.4 fl (6.2-12.0); Monocyte# 0.99 X10^3/uL; Monocyte% 15.9 % (0-10); NRBC Flagged by Analyzer 0 % (0-5); Neutrophil # 3.68 X10^3/uL (2.7-7.7); Neutrophil % 59.3 % (47-70); Platelet Count 206 K/mm3 (150-450); RBC Distribution Width CV 16.5 % (11.6-14.6); RBC Distribution Width SD 54.6 fl (35.1-43.9); Red Blood Count 3.85 M/mm3 (4.6-6.2); White Blood Count 6.2 K/mm3 (4.4-11.0)
[2022-11-20 07:10] LABS: Anion Gap 5 (5-15); BUN 46 mg/dL (7-18); BUN/Creat Ratio 11.6 RATIO (10-20); Calcium,Total 8.7 mg/dL (8.5-10.1); Chloride 104 mmol/L (98-107); Creatinine, Serum 3.98 mg/dL (0.70-1.30); EST Glomerular Filtration Rate 15 mL/min (>60); Est Glom Filt Rate - Afr Amer 19 mL/min (>60); Estimated Creatinine Clearance 12.23 ml/min; Glucose 109 mg/dL (74-106); Potassium 2.9 mmol/L (3.5-5.1); Sodium Level 142 mmol/L (136-145)
[2022-11-20] MEDS: Potassium Chloride Oral Tablet 20 MEQ 60 MEQ PO (08:39)
[2022-11-20] MEDS: Aspirin 81 MG TAB.CHEW PO (08:40)
[2022-11-20] MEDS: Hydroxychloroquine 200 MG Tablet PO (08:40)
[2022-11-20] MEDS: Carvedilol 12.5 MG Tablet PO ×2 (08:40→18:05)
[2022-11-20] MEDS: Calcium (Elemental) 500 MG Tablet PO (08:40)
[2022-11-20] MEDS: Ferrous Sulfate 325 MG Tablet PO (08:40)
[2022-11-20] MEDS: Pantoprazole Sodium 40 MG Tablet PO (09:03)
[2022-11-20] MEDS: APIXABAN 2.5 MG TABLET (WCH) PO ×2 (09:04→22:00)
[2022-11-20] MEDS: Finasteride 5 MG Tablet PO (09:04)
[2022-11-20] MEDS: Tamsulosin HCl 0.4 MG Capsule PO (09:04)
--- NOTE | 2022-11-20 09:36 | PN.CARD_ITS ---
Subjective Subjective The patient is awake and alert. He states he feels better. He states he slept well last night for the first time in approximately 2 weeks. He states his breathing is better, he feels less tense in his abdomen, and he feels his lower extremity edema is decreased. Objective Data Vital Signs: Vital Signs Temp Pulse Resp BP Pulse Ox O2 Del Method O2 Flow Rate 97.5 F L 60 17 164/72 H 96 Room Air 2.5 11/20/22 09:01 11/20/22 09:01 11/20/22 09:01 11/20/22 09:01 11/20/22 09:01 11/20/22 09:07 11/19/22 03:14 Oxygen Flow Rate (L/min) 2.5 Oxygen Delivery Method Room Air Weight: 193 lb 1.999 oz Body Mass Index (BMI) 32.3 Intake & Output: Intake and Output for Last 24 Hours 11/18/22 11/19/22 11/20/22 23:59 23:59 23:59 Intake Total 783 / 903 196.42 / 196.42 Output Total 1967 / 2467 1700 / 1700 Balance -1184 / -1564 -1503.58 / -1503.58 Lab / Micro Data Result Diagrams: 11/20/22 05:35 11/20/22 05:35 Labs: Laboratory Results - last 24 hr 11/20/22 05:35: WBC 6.2, RBC 3.85 L, Hgb 11.0 L, Hct 34.9 L, MCV 90.6, MCH 28.6, MCHC 31.5 L, RDW Std Deviation 54.6 H, RDW Coeff of Saloni 16.5 H, Plt Count 206, MPV 11.4, Immature Gran % (Auto) 0.300, Neut % (Auto) 59.3, Lymph % (Auto) 16.4 L, [place] % (Auto) 15.9 H, Eos % (Auto) 6.8 H, Baso % (Auto) 1.3 H, Absolute Neuts (auto) 3.7, Absolute Lymphs (auto) 1.02, Nucleated RBC % 0 11/20/22 05:35: Sodium 142, Potassium 2.9 L, Chloride 104, Carbon Dioxide 33.0 H , Anion Gap 5, BUN 46 H, Creatinine 3.98 H, Estim Creat Clear Calc 12.23, Est GFR (MDRD) Af Amer 19 L, Est GFR (MDRD) Non-Af 15 L, BUN/Creatinine Ratio 11.6, Glucose 109 H, Calcium 8.7 Cardiology Labs/Tests 11/20/22 05:35: WBC 6.2, RBC 3.85 L, Hgb 11.0 L, Hct 34.9 L, MCV 90.6, MCH 28.6, MCHC 31.5 L, Plt Count 206, MPV 11.4, Immature Gran % (Auto) 0.300, Neut % (Auto) 59.3, Lymph % (Auto) 16.4 L, [place] % (Auto) 15.9 H, Eos % (Auto) 6.8 H, Baso % (Auto) 1.3 H, Absolute Neuts (auto) 3.7, Nucleated RBC % 0 11/20/22 05:35: Sodium 142, Potassium 2.9 L, Chloride 104, Carbon Dioxide 33.0 H , Anion Gap 5, BUN 46 H, Creatinine 3.98 H, Est GFR (MDRD) Af Amer 19 L, Est GFR (MDRD) Non-Af 15 L, BUN/Creatinine Ratio 11.6, Glucose 109 H, Calcium 8.7 Rhythm: Electronic ventricular paced rhythm; PVCs Physical Exam Const alert, oriented x3 and no apparent distress Orientation / Consciousness: awake HEENT normocephalic, head/scalp atraumatic and hearing grossly normal bilaterally Eyes PERRL, EOMs intact bilaterally, conjunctivae normal and no scleral icterus Neck full ROM and supple Carotids: normal carotid upstroke Chest Chest: midline sternotomy incision Resp Auscultation: diminished lung sounds right lower Cardio regular rate, regular rhythm, S1 normal heart sound and S2 normal heart sound Cardio Narrative: Diminished heart tones GI normal to inspection, nondistended, normoactive bowel sounds Extremity General Extremity: edema bilateral lower extremity (Positive Ebenezer wraps in place: Appears less prominent than before) Details: moderate Skin no rashes or lesions noted Psych mental status grossly normal Assessment & Plan Assessment/Plan (1) CHF exacerbation: PLAN: The patient appears to have acute on chronic systolic mediated CHF. The patient appears to be symptomatically improved. He is continuing medical therapy which includes his IV diuresis with IV contin uous infusion furosemide and IV Diuril. He is receiving potassium supplementation. He has been evaluated by nephrology who has recommended continued medical therapy with consideration being given to the possibility of a temporary dialysis catheter being placed to initiate dialysis sooner than later. (2) Atherosclerosis of coronary artery without angina pectoris: PLAN: The patient has a history of CAD. He is without obvious angina pectoris at this time. His initial cardiac enzyme is negative. He is undergone recent noninvasive studies as noted. He does need to continue medical management as best as possible. This would include agents such as aspirin-unless otherwise contraindicated, nitrates, beta- blockers, afterload reducing agents as he is able based upon his other objective findings, vital signs, etc., and lipid-lowering agents. (3) History of coronary artery stent placement: PLAN: He has a history of previous PCI's as noted. His most recent evaluations available for review were noted. At the moment he does need to continue CAD risk factor evaluation/medical therapy. (4) H/O coronary artery bypass surgery: PLAN: He has a history of single-vessel CABG as noted. At the present time he continues risk factor modification medical therapy. (5) Ischemic cardiomyopathy: PLAN: He has recently undergone evaluation with transthoracic echocardiogram. The echocardiogram suggested he has diminished LV systolic function compatible with an ischemic mediated cardiomyopathy. He will continue medical therapy. This will include agents such as nitrates, beta-chad such as his c arvedilol/Coreg, diuretic therapy as he is able and tolerates, afterload reducing agents which would include Apresoline/hydralazine based upon his renal insufficiency, potentially the addition of SGLT2 inhibitors. (6) Heart failure with reduced ejection fraction: PLAN: The patient does appear to have heart failure with reduced ejection fraction. He appears to have acute on chronic exacerbation. As noted above he does appear to be symptomatically improved. He is continuing his combined IV diuretics with IV furosemide continuous infusion and IV Diuril. His urinary output, renal function, and overall clinical status are being followed by nephrology as well. He may also need to be considered for dialysis sooner than later. (7) Longstanding persistent atrial fibrillation: PLAN: The patient has a history of atrial fibrillation. He will continue rate limiting therapy. He will continue anticoagulant therapy as he is able based upon his multiple medical issues and his renal insufficiency. Thus far this is included apixaban/Eliquis of 2.5 mg p.o. twice daily. 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 He apparently is undergone EPS/RFA in the past. His rhythm will be monitored. He will continue beta-chad therapy. (9) History of permanent cardiac pacemaker placement: PLAN: The patient has a permanent pacemaker in place. He can be reassessed as needed. (10) Hyperlipidemia: PLAN: The patient will continue lipid-lowering therapy with his atorvastatin. (11) Essential hypertension: PLAN: The patient's blood pressure will need to be followed. His medicines can be adjusted taking into consideration his renal insufficiency. (12) Pulmonary fibrosis: PLAN: The patient has a history of pulmonary fibrosis. He will continue evaluation care per internal medicine and as needed by pulmonology. (13) Stage 4 chronic kidney disease: PLAN: The patient states he is being prepared for end-stage renal failure/he modialysis. The nephrology consultation is appreciated. It appears the recommendation is to continue his current therapy, monitor his response, and consider possible temporary dialysis catheter placement to initiate hemodialysis sooner than later. Addt'l Comments The above was discussed and reviewed with the patient. This note was generated using a voice recognition system and there may be incorrect words, spelling or punctuation that were not noted when reviewing the office note prior to saving. Comment: Time spent in the patient's overall evaluation, care, documentation, discussion, etc., 37 minutes Procedure Criteria Type of Procedure Procedure Type: Elective Elective Risks - COVID COVID Risk Discussion: The surgeon/proceduralist and patient have discussed in detail the risk of exposure to and/or potential harm posed by the COVID-19 virus with having a surgery/procedure at this time versus the risk of delaying the surgery/procedure. It is not possible to know either the risk of delaying the surgery or procedure or chance of getting an infection with perfect accuracy, but a joint decision was made between the patient and the surgeon/proceduralist to proceed at this time with the scheduled surgery/procedure as indicated on the consent form.
--- NOTE | 2022-11-20 10:18 | PN.RENAL_ITS ---
Subjective Subjective Sitting in chair. No overnight events. Reports feeling better overall. Notices improvement in edema. Objective Data Objective Data Vital Signs: Vital Signs Temp Pulse Resp BP Pulse Ox O2 Del Method O2 Flow Rate 97.5 F L 60 17 164/72 H 96 Room Air 2.5 11/20/22 09:01 11/20/22 09:01 11/20/22 09:01 11/20/22 09:01 11/20/22 09:01 11/20/22 09:07 11/19/22 03:14 Oxygen Flow Rate (L/min) 2.5 Oxygen Delivery Method Room Air Weight: 87.6 kg Body Mass Index (BMI) 32.3 Intake & Output: Intake and Output for Last 24 Hours 11/18/22 11/19/22 11/20/22 23:59 23:59 23:59 Intake Total 783 / 903 196.42 / 196.42 Output Total 1967 / 2467 1700 / 1700 Balance -1184 / -1564 -1503.58 / -1503.58 Lab / Micro Data Result Diagrams: 11/20/22 05:35 11/20/22 05:35 Labs: Laboratory Results - last 24 hr 11/20/22 05:35: WBC 6.2, RBC 3.85 L, Hgb 11.0 L, Hct 34.9 L, MCV 90.6, MCH 28.6, MCHC 31.5 L, RDW Std Deviation 54.6 H, RDW Coeff of Saloni 16.5 H, Plt Count 206, MPV 11.4, Immature Gran % (Auto) 0.300, Neut % (Auto) 59.3, Lymph % (Auto) 16.4 L, [place] % (Auto) 15.9 H, Eos % (Auto) 6.8 H, Baso % (Auto) 1.3 H, Absolute Neuts (auto) 3.7, Absolute Lymphs (auto) 1.02, Nucleated RBC % 0 11/20/22 05:35: Sodium 142, Potassium 2.9 L, Chloride 104, Carbon Dioxide 33.0 H , Anion Gap 5, BUN 46 H, Creatinine 3.98 H, Estim Creat Clear Calc 12.23, Est G FR (MDRD) Af Amer 19 L, Est GFR (MDRD) Non-Af 15 L, BUN/Creatinine Ratio 11.6, Glucose 109 H, Calcium 8.7 Physical Exam Narrative Alert awake oriented x 3. No apparent distress no JVD s1s2 no murmurs lungs clear abdomen soft, rounded Bilateral lower extremity pitting edema, Ebenezer wraps intact to bilateral lower legs hui + Assessment & Plan Assessment/Plan (1) Stage 4 chronic kidney disease: PLAN: - CKD stage IV but closer to stage V at this point. Creatinine is between 3.5-4.0. Estimated GFR 12. In hospital serum creatinine has been around 3.9 mg/dL last 3 days but patient is significantly volume overload on exam. Once volume status improves we may see higher, more accurate creatinine/eGFR levels. Last echocardiogram with ejection fraction of 40%. Patient is on Lasix drip at 10 mg/hour. Good urine output, so far 1.7 L today. Net negative 2.7L. We will continue Lasix drip for another day. He is also on Diuril twice daily. - replace potassium as ordered. Check lytes and mag tomorrow as ordered. - He was scheduled to have vein mapping yesterday and appointment with vascular surgery on the . We will have to reschedule the vein mapping and keep vascular surgery appointment as planned. -At this time there is no acute indication for dialysis today but he is fairly borderline. No uremia and patient is nonoliguric. 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 (2) CHF exacerbation: (3) SOB (shortness of breath):
[2022-11-20] MEDS: Potassium Chloride Oral Tablet 20 MEQ PO (13:24)
[2022-11-20] MEDS: metOLazone 5 MG Tablet PO ×2 (13:24→22:05)
--- NOTE | 2022-11-20 15:56 | PCM.PN.HOSP ---
Subjective Subjective Feels much better today, states that swelling is much improved. No new issues overnight Objective Data Objective Data Vital Signs: Vital Signs Temp Pulse Resp BP Pulse Ox O2 Del Method O2 Flow Rate 98.1 F 60 16 105/56 L 94 Room Air 2.5 11/20/22 15:23 11/20/22 15:23 11/20/22 15:23 11/20/22 15:23 11/20/22 15:23 11/20/22 15:30 11/19/22 03:14 Oxygen Flow Rate (L/min) 2.5 Oxygen Delivery Method Room Air Weight: 193 lb 1.999 oz Body Mass Index (BMI) 32.3 Intake & Output: Intake and Output for Last 24 Hours 11/19/22 11/20/22 11/21/22 03:59 03:59 03:59 Intake Total 903 / 903 276.42 / 276.42 Output Total 2467 / 2467 3150 / 3150 Balance -1564 / -1564 -2873.58 / -2873.58 Lab / Micro Data Result Diagrams: 11/20/22 05:35 11/20/22 05:35 Labs: Laboratory Results - last 24 hr 11/20/22 05:35: WBC 6.2, RBC 3.85 L, Hgb 11.0 L, Hct 34.9 L, MCV 90.6, MCH 28.6, MCHC 31.5 L, RDW Std Deviation 54.6 H, RDW Coeff of Saloni 16.5 H, Plt Count 206, MPV 11.4, Immature Gran % (Auto) 0.300, Neut % (Auto) 59.3, Lymph % (Auto) 16.4 L, [place] % (Auto) 15.9 H, Eos % (Auto) 6.8 H, Baso % (Auto) 1.3 H, Absolute Neuts (auto) 3.7, Absolute Lymphs (auto) 1.02, Nucleated RBC % 0 11/20/22 05:35: Sodium 142, Potassium 2.9 L, Chloride 104, Carbon Dioxide 33.0 H, Anion Gap 5, BUN 46 H, Creatinine 3.98 H, Estim Creat Clear Calc 12.23, Est GFR (MDRD) Af Amer 19 L, Est GFR (MDRD) Non-Af 15 L, BUN/Creatinine Ratio 11.6, Glucose 109 H, Calcium 8.7 Physical Exam Narrative General: Alert, Oriented x3, Cooperative, No apparent distress HEENT: Atraumatic, PERRLA, EOMI, Normocephalic Oral: Moist Mucosa Neck: Supple, No JVD Lungs: Diminished, Normal air movement, No rhonchi, No wheeze, No rales Cardiovascular: Regular rate, Regular Rhythm, Normal S1, Normal S2, No murmurs Abdomen: Soft, Non Tender, Non-Distended, No Hepato-splenomegaly Extremities: Edema, Capillary Refill Less than 3 Seconds Skin: No rashes, No breakdown Musculoskeletal: No Tenderness to Palpation of Joints or Extremities Neurological: Cranial nerves II-XII grossly intact, Motor Exam 5/5 strength throughout, Sensory exam intact to light touch and pain Psych/Mental Status: Normal Affect, Appropriate Assessment & Plan Assessment/Plan (1) Heart failure: PLAN: Plan 1. Acute on chronic systolic CHF exacerbation/HTN/HLD/CAD status post CABG and stent/persistent A. fib/chronic renal failure ? We will continue with the Lasix drip and monitor his renal function closely, he is approaching the point where he may need dialysis so we will consult nephrology ? Renal function has steadily been worsening over the last couple years ? Appreciate cardiology's assistance ? Continue with his aspirin and his Eliquis as well as Lipitor ? Continue with his blood pressure medications ? Continue with Lasix drip 2. Rheumatoid arthritis ? Stable ? Continue with Plaquenil 3. GERD ? Stable ? Continue with PPI 4. BPH ? Stable ? Continue with Flomax 5. Depression ? Stable ? Continue with Remeron DVT: Eliquis Charges/Coding Visit Charges Inpatient E&M: 55426 Subs Hosp L2
[2022-11-20] MEDS: Senna/Docusate Sodium 1 Tablet 2 TABLET PO (18:05)
[2022-11-20] MEDS: Atorvastatin Calcium 40 MG Tablet PO (21:59)
[2022-11-20] MEDS: Mirtazapine 15 MG Tablet 45 MG PO (21:59)
[2022-11-20] MEDS: LORazepam 0.5 MG Tablet PO (22:03)
[2022-11-21] VITALS (9 sets, daily range): BP systolic 114–148; BP diastolic 56–73; PULSE 60–69; RESP 16–18; TEMP 36.4–36.8; O2SAT 94–99
[2022-11-21] MEDS: hydrALAZINE 50 MG Tablet 100 MG PO ×3 (05:43→21:02)
[2022-11-21] MEDS: Isosorbide DN 20 MG Tablet PO ×3 (05:43→21:06)
[2022-11-21] MEDS: Calcium (Elemental) 500 MG Tablet PO (08:00)
[2022-11-21] MEDS: metOLazone 5 MG Tablet PO ×2 (08:00→21:07)
[2022-11-21] MEDS: Hydroxychloroquine 200 MG Tablet PO (08:00)
[2022-11-21] MEDS: Tamsulosin HCl 0.4 MG Capsule PO (08:00)
[2022-11-21] MEDS: Ferrous Sulfate 325 MG Tablet PO (08:01)
[2022-11-21] MEDS: Pantoprazole Sodium 40 MG Tablet PO (08:01)
[2022-11-21] MEDS: Finasteride 5 MG Tablet PO (08:01)
[2022-11-21] MEDS: Potassium Chloride Oral Tablet 20 MEQ 40 MEQ PO (08:01)
[2022-11-21] MEDS: Carvedilol 12.5 MG Tablet PO ×2 (08:02→16:09)
[2022-11-21] MEDS: Aspirin 81 MG TAB.CHEW PO (08:02)
[2022-11-21] MEDS: APIXABAN 2.5 MG TABLET (WCH) PO ×2 (08:02→21:04)
[2022-11-21 08:11] LABS: Anion Gap 5 (5-15); BUN 51 mg/dL (7-18); BUN/Creat Ratio 12.7 RATIO (10-20); Calcium,Total 8.6 mg/dL (8.5-10.1); Chloride 100 mmol/L (98-107); Creatinine, Serum 4.02 mg/dL (0.70-1.30); EST Glomerular Filtration Rate 15 mL/min (>60); Est Glom Filt Rate - Afr Amer 18 mL/min (>60); Estimated Creatinine Clearance 12.11 ml/min; Glucose 132 mg/dL (74-106); Magnesium 2.6 mg/dL (1.6-2.6); Potassium 3.1 mmol/L (3.5-5.1); Sodium Level 140 mmol/L (136-145)
--- NOTE | 2022-11-21 12:12 | PN.CARD_ITS ---
Subjective Subjective Patient states her shortness of breath is improved Objective Data Vital Signs: Vital Signs Temp Pulse Resp BP Pulse Ox O2 Del Method O2 Flow Rate 97.5 F L 61 16 114/59 L 94 Room Air 2.5 11/21/22 10:00 11/21/22 10:00 11/21/22 10:00 11/21/22 10:00 11/21/22 10:00 11/21/22 10:00 11/19/22 03:14 Oxygen Flow Rate (L/min) 2.5 Oxygen Delivery Method Room Air Weight: 175 lb 14.862 oz Body Mass Index (BMI) 32.3 Intake & Output: Intake and Output for Last 24 Hours 11/19/22 11/20/22 11/21/22 23:59 23:59 23:59 Intake Total 783 / 903 654.14 / 894.14 240 / 240 Output Total 1967 / 2467 4750 / 5150 1550 / 1550 Balance -1184 / -1564 -4095.86 / -4255.86 -1310 / -1310 Lab / Micro Data Result Diagrams: 11/20/22 05:35 11/21/22 07:05 Labs: Laboratory Results - last 24 hr 11/21/22 07:05: Sodium 140, Potassium 3.1 L, Chloride 100, Carbon Dioxide 35.0 H , Anion Gap 5, BUN 51 H, Creatinine 4.02 H, Estim Creat Clear Calc 12.11, Est GFR (MDRD) Af Amer 18 L, Est GFR (MDRD) Non-Af 15 L, BUN/Creatinine Ratio 12.7, Glucose 132 H, Calcium 8.6, Magnesium 2.6 Cardiology Labs/Tests 11/21/22 07:05: Sodium 140, Potassium 3.1 L, Chloride 100, Carbon Dioxide 35.0 H , Anion Gap 5, BUN 51 H, Creatinine 4.02 H, Est GFR (MDRD) Af Amer 18 L, Est GFR (MDRD) Non-Af 15 L, BUN/Creatinine Ratio 12.7, Glucose 132 H, Calcium 8.6, Magnesium 2.6 Rhythm: EKG: ECHO: Stress Test: Cardiac Cath: PCI: CT Surgery: Holter monitor: EPS: PPM: CXR: Chest CT Scan: Physical Exam Const alert and oriented x3 HEENT normocephalic Eyes no scleral icterus Resp normal respiratory effort Cardio regular rate Extremity Extremity Narrative: 1+ edema Assessment & Plan Assessment/Plan (1) CHF exacerbation: PLAN: The patient appears to have acute on chronic systolic mediated CHF. The patient appears to be symptomatically improved. Continue current therapy (2) Atherosclerosis of coronary artery without angina pectoris: PLAN: Continue medical therapy (3) Longstanding persistent atrial fibrillation: PLAN: The patient has a history of atrial fibrillation. He will continue rate limiting therapy. He will continue anticoagulant therapy as he is able based upon his multiple medical issues and his renal insufficiency. Thus far this is included apixaban/Eliquis of 2.5 mg p.o. twice daily. Charges/Coding Visit Charges Inpatient E&M: 32937 Init Hosp L2
--- NOTE | 2022-11-21 14:11 | PN.HOSP_ITS ---
Subjective Subjective Doing well today, no issues overnight. Renal function did slightly worsen but not significantly Objective Data Objective Data Vital Signs: Vital Signs Temp Pulse Resp BP Pulse Ox O2 Del Method O2 Flow Rate 97.5 F L 61 16 114/59 L 94 Room Air 2.5 11/21/22 10:00 11/21/22 10:00 11/21/22 10:00 11/21/22 10:00 11/21/22 10:00 11/21/22 10:00 11/19/22 03:14 Oxygen Flow Rate (L/min) 2.5 Oxygen Delivery Method Room Air Weight: 175 lb 14.862 oz Body Mass Index (BMI) 32.3 Intake & Output: Intake and Output for Last 24 Hours 11/20/22 11/21/22 11/22/22 03:59 03:59 03:59 Intake Total 903 / 903 774.14 / 774.14 360 / 360 Output Total 2467 / 2467 4650 / 4650 3000 / 3000 Balance -1564 / -1564 -3875.86 / -3875.86 -2640 / -2640 Lab / Micro Data Result Diagrams: 11/20/22 05:35 11/21/22 07:05 Labs: Laboratory Results - last 24 hr 11/21/22 07:05: Sodium 140, Potassium 3.1 L, Chloride 100, Carbon Dioxide 35.0 H , Anion Gap 5, BUN 51 H, Creatinine 4.02 H, Estim Creat Clear Calc 12.11, Est GFR (MDRD) Af Amer 18 L, Est GFR (MDRD) Non-Af 15 L, BUN/Creatinine Ratio 12.7, Glucose 132 H, Calcium 8.6, Magnesium 2.6 Physical Exam Narrative General: Alert, Oriented x3, Cooperative, No apparent distress HEENT: Atraumatic, PERRLA, EOMI, Normocephalic Oral: Moist Mucosa Neck: Supple, No JVD Lungs: Diminished, Normal air movement, No rhonchi, No wheeze, No rales Cardiovascular: Regular rate, Regular Rhythm, Normal S1, Normal S2, No murmurs Abdomen: Soft, Non Tender, Non-Distended, No Hepato-splenomegaly Extremities: Edema, Capillary Refill Less than 3 Seconds Skin: No rashes, No breakdown Musculoskeletal: No Tenderness to Palpation of Joints or Extremities Neurological: Cranial nerves II-XII grossly intact, Motor Exam 5/5 strength throughout, Sensory exam intact to light touch and pain Psych/Mental Status: Normal Affect, Appropriate Assessment & Plan Assessment/Plan (1) Heart failure: PLAN: Plan 1. Acute on chronic systolic CHF exacerbation/HTN/HLD/CAD status post CABG and stent/persistent A. fib/chronic renal failure ? We will continue with the Lasix drip and monitor his renal function closely, he is approaching the point where he may need dialysis, appreciate nephrology's assistance ? Renal function has steadily been worsening over the last couple years ? Appreciate cardiology's assistance ? Continue with his aspirin and his Eliquis as well as Lipitor ? Continue with his blood pressure medications 2. Rheumatoid arthritis ? Stable ? Continue with Plaquenil 3. GERD ? Stable ? Continue with PPI 4. BPH ? Stable ? Continue with Flomax 5. Depression ? Stable ? Continue with Remeron DVT: Lenny Charges/Coding Visit Charges Inpatient E&M: 42013 Subs Hosp L2
--- NOTE | 2022-11-21 18:40 | PN.RENAL_ITS ---
Subjective Subjective Following for CKD stage IV and volume overload. The patient denies current chest pain or shortness of breath at rest. He denies nausea or vomiting. He feels less swollen. Weight has decreased from 90.7 kg on 11/18/2022 down to 79.8 kg earlier today. Objective Data Objective Data Vital Signs: Vital Signs Temp Pulse Resp BP Pulse Ox O2 Del Method O2 Flow Rate 97.9 F 60 18 129/56 H 99 Room Air 2.5 11/21/22 16:00 11/21/22 16:00 11/21/22 16:00 11/21/22 16:00 11/21/22 16:00 11/21/22 16:00 11/19/22 03:14 Oxygen Flow Rate (L/min) 2.5 Oxygen Delivery Method Room Air Weight: 79.8 kg Body Mass Index (BMI) 32.3 Intake & Output: Intake and Output for Last 24 Hours 11/19/22 11/20/22 11/21/22 23:59 23:59 23:59 Intake Total 783 / 903 654.14 / 894.14 600 / 600 Output Total 1967 / 2467 4750 / 5150 3400 / 3400 Balance -1184 / -1564 -4095.86 / -4255.86 -2800 / -2800 Lab / Micro Data Result Diagrams: 11/20/22 05:35 11/21/22 07:05 Labs: Laboratory Results - last 24 hr 11/21/22 07:05: Sodium 140, Potassium 3.1 L, Chloride 100, Carbon Dioxide 35.0 H , Anion Gap 5, BUN 51 H, Creatinine 4.02 H, Estim Creat Clear Calc 12.11, Est GFR (MDRD) Af Amer 18 L, Est GFR (MDRD) Non-Af 15 L, BUN/Creatinine Ratio 12.7, Glucose 132 H, Calcium 8.6, Magnesium 2.6 Physical Exam Narrative Alert awake oriented x 3. No apparent distress no JVD s1s2 no murmurs lungs clear anteriorly abdomen soft, rounded Bilateral lower extremity pitting edema, Ebenezer wraps intact to bilateral lower legs hui + Assessment & Plan Assessment/Plan (1) Stage 4 chronic kidney disease: (2) CHF exacerbation: (3) SOB (shortness of breath): PLAN: Plan -CKD stage IV but closer to stage V at this point. Creatinine is between 3.5- 4.0. Estimated GFR is 15 mL/min. -In hospital serum creatinine has been around 3.9-4.0 mg/dL last 4, days but patient is significantly volume overload on exam. So, serum creatinine may be overestimating true GFR. -Once volume status improves we may see higher, more accurate creatinine/eGFR levels. -Since the patient is still volume overloaded, I would continue Lasix drip at 10 mg/hour. The patient is also on metolazone at 5 mg twice a day. -Good urine output, weight has continued to decline without significant increase in serum creatinine. -Continue to replace potassium deficit which is from diuresis. Magnesium is okay so far. - He was scheduled to have vein mapping yesterday and appointment with vascular surgery on the . We will have to reschedule the vein mapping and keep vascular surgery appointment as planned. -At this time there is no acute indication for dialysis today but he is fairly borderline. No uremic signs or symptoms. If renal function worsens, we may have to start dialysis with a tunneled dialysis catheter, this was explained to patient and patient is in agreement to plan should he need [employer].
[2022-11-21] MEDS: LORazepam 0.5 MG Tablet PO (21:01)
[2022-11-21] MEDS: Furosemide 500 MG in Empty Viaflex 50 mL 1 EACH CONT INF (21:05)
[2022-11-21] MEDS: Atorvastatin Calcium 40 MG Tablet PO (21:05)
[2022-11-21] MEDS: Mirtazapine 15 MG Tablet 45 MG PO (21:06)
[2022-11-22] VITALS (12 sets, daily range): BP systolic 109–139; BP diastolic 55–71; PULSE 60–66; RESP 16–18; TEMP 36.4–36.8; O2SAT 94–98
[2022-11-22] MEDS: Acetaminophen 325 MG Tablet 650 MG PO ×2 (00:38→22:15)
[2022-11-22] MEDS: MELATONIN 3 MG TABLET PO ×2 (00:38→22:15)
[2022-11-22] MEDS: Isosorbide DN 20 MG Tablet PO ×3 (06:00→22:16)
[2022-11-22] MEDS: hydrALAZINE 50 MG Tablet 100 MG PO ×3 (06:00→22:16)
[2022-11-22 06:55] LABS: Absolute Lymphocyte Count 1.44 X10^3/uL (0.83-4.51); Absolute Neutrophil Count 3.6 X10^3/uL (2.0-7.7); Basophil# 0.09 X10^3/uL; Basophil% 1.3 % (0-1); Eosinophil# 0.43 X10^3/uL; Eosinophils% 6.3 % (0-5); Hematocrit 34.2 % (40-54); Hemoglobin 10.8 g/dL (13.0-16.5); Lymphocyte # 1.44 X10^3/ul (0.83-4.51); Lymphocyte % 21.1 % (19-41); Mean Corp Hgb Conc 31.6 g/dL (32-36); Mean Corpuscular Hgb 28.5 pg (27.0-32.0); Mean Corpuscular Volume 90.2 fL (80-94); Mean Platelet Vol. 11.2 fl (6.2-12.0); Monocyte# 1.23 X10^3/uL; NRBC Flagged by Analyzer 0 % (0-5); Neutrophil # 3.62 X10^3/uL (2.7-7.7); Platelet Count 233 K/mm3 (150-450); RBC Distribution Width CV 16.7 % (11.6-14.6); RBC Distribution Width SD 53.9 fl (35.1-43.9); Red Blood Count 3.79 M/mm3 (4.6-6.2); White Blood Count 6.8 K/mm3 (4.4-11.0)
[2022-11-22 07:24] LABS: Anion Gap 10 (5-15); BUN 53 mg/dL (7-18); BUN/Creat Ratio 13.8 RATIO (10-20); Calcium,Total 8.7 mg/dL (8.5-10.1); Chloride 95 mmol/L (98-107); Creatinine, Serum 3.85 mg/dL (0.70-1.30); EST Glomerular Filtration Rate 16 mL/min (>60); Est Glom Filt Rate - Afr Amer 19 mL/min (>60); Estimated Creatinine Clearance 12.65 ml/min; Glucose 91 mg/dL (74-106); Magnesium 2.2 mg/dL (1.6-2.6); Potassium 2.8 mmol/L (3.5-5.1); Sodium Level 141 mmol/L (136-145)
[2022-11-22] MEDS: Finasteride 5 MG Tablet PO (08:03)
[2022-11-22] MEDS: Tamsulosin HCl 0.4 MG Capsule PO (08:03)
[2022-11-22] MEDS: APIXABAN 2.5 MG TABLET (WCH) PO ×2 (08:03→22:16)
[2022-11-22] MEDS: metOLazone 5 MG Tablet PO ×2 (08:03→22:18)
[2022-11-22] MEDS: Aspirin 81 MG TAB.CHEW PO (08:04)
[2022-11-22] MEDS: Hydroxychloroquine 200 MG Tablet PO (08:04)
[2022-11-22] MEDS: Calcium (Elemental) 500 MG Tablet PO (08:04)
[2022-11-22] MEDS: Potassium Chloride Oral Tablet 20 MEQ 40 MEQ PO ×2 (08:04→16:59)
[2022-11-22] MEDS: Carvedilol 12.5 MG Tablet PO ×2 (08:04→16:59)
[2022-11-22] MEDS: Pantoprazole Sodium 40 MG Tablet PO (08:04)
[2022-11-22] MEDS: Ferrous Sulfate 325 MG Tablet PO (08:04)
--- NOTE | 2022-11-22 11:33 | PN.HOSP_ITS ---
Subjective Subjective Renal function has improved with the Lasix drip, he is feeling much better, he is down about 10 L in a little over 20 pounds Objective Data Objective Data Vital Signs: Vital Signs Temp Pulse Resp BP Pulse Ox O2 Del Method O2 Flow Rate 97.5 F L 60 18 126/65 H 98 Room Air 2.5 11/22/22 10:00 11/22/22 10:00 11/22/22 10:00 11/22/22 10:00 11/22/22 10:00 11/22/22 10:00 11/19/22 03:14 Oxygen Flow Rate (L/min) 2.5 Oxygen Delivery Method Room Air Weight: 169 lb 8.568 oz Body Mass Index (BMI) 32.3 Intake & Output: Intake and Output for Last 24 Hours 11/21/22 11/22/22 11/23/22 03:59 03:59 03:59 Intake Total 774.14 / 774.14 543.02 / 543.02 100 / 100 Output Total 4650 / 4650 3000 / 3000 1700 / 1700 Balance -3875.86 / -3875.86 -2456.98 / -2456.98 -1600 / -1600 Lab / Micro Data Result Diagrams: 11/22/22 05:35 11/22/22 05:35 Labs: Laboratory Results - last 24 hr 11/22/22 05:35: WBC 6.8, RBC 3.79 L, Hgb 10.8 L, Hct 34.2 L, MCV 90.2, MCH 28.5, MCHC 31.6 L, RDW Std Deviation 53.9 H, RDW Coeff of [place]oni 16.7 H, Plt Count 233, MPV 11.2, Immature Gran % (Auto) 0.300, Neut % (Auto) 53.0, Lymph % (Auto) 21.1, [place] % (Auto) 18.0 H, Eos % (Auto) 6.3 H, Baso % (Auto) 1.3 H, Absolute Neuts (auto) 3.6, Absolute Lymphs (auto) 1.44, Nucleated RBC % 0 11/22/22 05:35: Sodium 141, Potassium 2.8 L, Chloride 95 L, Carbon Dioxide 36.0 H, Anion Gap 10, BUN 53 H, Creatinine 3.85 H, Estim Creat Clear Calc 12.65, Est GFR (MDRD) Af Amer 19 L, Est GFR (MDRD) Non-Af 16 L, BUN/Creatinine Ratio 13.8, Glucose 91, Calcium 8.7, Magnesium 2.2 Physical Exam Narrative General: Alert, Oriented x3, Cooperative, No apparent distress HEENT: Atraumatic, PERRLA, EOMI, Normocephalic Oral: Moist Mucosa Neck: Supple, No JVD Lungs: Diminished, Normal air movement, No rhonchi, No wheeze, No rales Cardiovascular: Regular rate, Regular Rhythm, Normal S1, Normal S2, No murmurs Abdomen: Soft, Non Tender, Non-Distended, No Hepato-splenomegaly Extremities: Edema much improved, Capillary Refill Less than 3 Seconds Skin: No rashes, No breakdown Musculoskeletal: No Tenderness to Palpation of Joints or Extremities Neurological: Cranial nerves II-XII grossly intact, Motor Exam 5/5 strength throughout, Sensory exam intact to light touch and pain Psych/Mental Status: Normal Affect, Appropriate Assessment & Plan Assessment/Plan (1) Heart failure: PLAN: Plan 1. Acute on chronic systolic CHF exacerbation/HTN/HLD/CAD status post CABG and stent/persistent A. fib/chronic renal failure ? We will continue with the Lasix drip and monitor his renal function closely, he is approaching the point where he may need dialysis, appreciate nephrology's assistance ? Renal function has steadily been worsening over the last couple years ? Appreciate cardiology's assistance ? Continue with his aspirin and his Eliquis as well as Lipitor ? Continue with his blood pressure medications ? Continue with his iron replacement 2. Rheumatoid arthritis ? Stable ? Continue with Plaquenil 3. GERD ? Stable ? Continue with PPI 4. BPH ? Stable ? Continue with Flomax 5. Depression ? Stable ? Continue with Remeron DVT: Eliquis Charges/Coding Visit Charges Inpatient E&M: 03289 Subs Hosp L2
--- NOTE | 2022-11-22 16:42 | PN.CARD_ITS ---
Subjective Subjective Patient feels significantly better as far as shortness of breath and edema is concerned Objective Data Vital Signs: Vital Signs Temp Pulse Resp BP Pulse Ox O2 Del Method O2 Flow Rate 97.5 F L 60 18 112/56 L 98 Room Air 2.5 11/22/22 10:00 11/22/22 14:59 11/22/22 10:00 11/22/22 13:54 11/22/22 10:00 11/22/22 10:00 11/19/22 03:14 Oxygen Flow Rate (L/min) 2.5 Oxygen Delivery Method Room Air Weight: 169 lb 8.568 oz Body Mass Index (BMI) 32.3 Intake & Output: Intake and Output for Last 24 Hours 11/20/22 11/21/22 11/22/22 23:59 23:59 23:59 Intake Total 654.14 / 894.14 783.02 / 783.02 460 / 460 Output Total 4750 / 5150 3400 / 3400 2950 / 2950 Balance -4095.86 / -4255.86 -2616.98 / -2616.98 -2490 / -2490 Lab / Micro Data Result Diagrams: 11/22/22 05:35 11/22/22 05:35 Labs: Laboratory Results - last 24 hr 11/22/22 05:35: WBC 6.8, RBC 3.79 L, Hgb 10.8 L, Hct 34.2 L, MCV 90.2, MCH 28.5, MCHC 31.6 L, RDW Std Deviation 53.9 H, RDW Coeff of [place] 16.7 H, Plt Count 233, MPV 11.2, Immature Gran % (Auto) 0.300, Neut % (Auto) 53.0, Lymph % (Auto) 21.1, [place] % (Auto) 18.0 H, Eos % (Auto) 6.3 H, Baso % (Auto) 1.3 H, Absolute Neuts (auto) 3.6, Absolute Lymphs (auto) 1.44, Nucleated RBC % 0 11/22/22 05:35: Sodium 141, Potassium 2.8 L, Chloride 95 L, Carbon Dioxide 36.0 H, Anion Gap 10, BUN 53 H, Creatinine 3.85 H, Estim Creat Clear Calc 12.65, Est GFR (MDRD) Af Amer 19 L, Est GFR (MDRD) Non-Af 16 L, BUN/Creatinine Ratio 13.8, Glucose 91, Calcium 8.7, Magnesium 2.2 Cardiology Labs/Tests 11/22/22 05:35: WBC 6.8, RBC 3.79 L, Hgb 10.8 L, Hct 34.2 L, MCV 90.2, MCH 28.5, MCHC 31.6 L, Plt Count 233, MPV 11.2, Immature Gran % (Auto) 0.300, Neut % (Auto) 53.0, Lymph % (Auto) 21.1, [place] % (Auto) 18.0 H, Eos % (Auto) 6.3 H, Baso % (Auto) 1.3 H, Absolute Neuts (auto) 3.6, Nucleated RBC % 0 11/22/22 05:35: Sodium 141, Potassium 2.8 L, Chloride 95 L, Carbon Dioxide 36.0 H, Anion Gap 10, BUN 53 H, Creatinine 3.85 H, Est GFR (MDRD) Af Amer 19 L, Est GFR (MDRD) Non-Af 16 L, BUN/Creatinine Ratio 13.8, Glucose 91, Calcium 8.7, Magnesium 2.2 Rhythm: EKG: ECHO: Stress Test: Cardiac Cath: PCI: CT Surgery: Holter monitor: EPS: PPM: CXR: Chest CT Scan: Physical Exam Const alert and oriented x3 HEENT normocephalic Eyes no scleral icterus Resp normal respiratory effort Cardio regular rate Assessment & Plan Assessment/Plan (1) CHF exacerbation: PLAN: The patient appears to have acute on chronic systolic mediated CHF. The patient appears to be symptomatically improved. Continue current therapy (2) Atherosclerosis of coronary artery without angina pectoris: PLAN: Continue medical therapy (3) Longstanding persistent atrial fibrillation: PLAN: The patient has a history of atrial fibrillation. He will continue rate limiting therapy. He will continue anticoagulant therapy as he is able based upon his multiple medical issues and his renal insufficiency. Thus far this is included apixaban/Eliquis of 2.5 mg p.o. twice daily.
[2022-11-22] MEDS: LORazepam 0.5 MG Tablet PO (22:15)
[2022-11-22] MEDS: Atorvastatin Calcium 40 MG Tablet PO (22:16)
[2022-11-22] MEDS: Mirtazapine 15 MG Tablet 45 MG PO (22:17)
[2022-11-23] VITALS (14 sets, daily range): BP systolic 107–139; BP diastolic 49–64; PULSE 59–64; RESP 16–18; TEMP 36.4–36.8; O2SAT 94–99
[2022-11-23] MEDS: 0.9% Saline Lock 10 ML Syringe IV (05:17)
[2022-11-23] MEDS: hydrALAZINE 50 MG Tablet 100 MG PO ×3 (05:18→23:11)
[2022-11-23] MEDS: Isosorbide DN 20 MG Tablet PO ×3 (05:18→23:11)
[2022-11-23 06:55] LABS: Anion Gap 10 (5-15); BUN 60 mg/dL (7-18); BUN/Creat Ratio 15.1 RATIO (10-20); Calcium,Total 8.6 mg/dL (8.5-10.1); Chloride 94 mmol/L (98-107); Creatinine, Serum 3.97 mg/dL (0.70-1.30); EST Glomerular Filtration Rate 15 mL/min (>60); Est Glom Filt Rate - Afr Amer 19 mL/min (>60); Estimated Creatinine Clearance 12.26 ml/min; Glucose 111 mg/dL (74-106); Sodium Level 140 mmol/L (136-145)
[2022-11-23] MEDS: Calcium (Elemental) 500 MG Tablet PO (08:05)
[2022-11-23] MEDS: Carvedilol 12.5 MG Tablet PO ×2 (08:05→17:23)
[2022-11-23] MEDS: Aspirin 81 MG TAB.CHEW PO (08:05)
[2022-11-23] MEDS: Hydroxychloroquine 200 MG Tablet PO (08:05)
[2022-11-23] MEDS: Ferrous Sulfate 325 MG Tablet PO (08:05)
[2022-11-23] MEDS: Pantoprazole Sodium 40 MG Tablet PO (08:06)
[2022-11-23] MEDS: Finasteride 5 MG Tablet PO (08:06)
[2022-11-23] MEDS: Potassium Chloride Oral Tablet 20 MEQ 40 MEQ PO ×2 (08:11→17:23)
--- NOTE | 2022-11-23 09:06 | PCM.PN.REN ---
Subjective Subjective Following for acute kidney injury on chronic kidney disease and volume management. The patient feels much better compared to when he was admitted. He denies chest pain. There is no shortness of breath at rest. He has not yet been too active while he has been here since he is connected to the IV for Lasix drip. He denies nausea, vomiting, or anorexia. Edema of the lower extremities has markedly improved. Objective Data Objective Data Vital Signs: Vital Signs Temp Pulse Resp BP Pulse Ox O2 Del Method O2 Flow Rate 97.8 F 60 18 123/64 H 99 Room Air 2.5 11/23/22 08:04 11/23/22 08:04 11/23/22 08:04 11/23/22 08:04 11/23/22 08:18 11/23/22 08:18 11/19/22 03:14 Oxygen Flow Rate (L/min) 2.5 Oxygen Delivery Method Room Air Weight: 74.3 kg Body Mass Index (BMI) 32.3 Intake & Output: Intake and Output for Last 24 Hours 11/21/22 11/22/22 11/23/22 23:59 23:59 23:59 Intake Total 783.02 / 783.02 1010 / 1230 270 / 270 Output Total 3400 / 3400 3725 / 4125 1200 / 1200 Balance -2616.98 / -2616.98 -2715 / -2895 -930 / -930 Lab / Micro Data Result Diagrams: 11/22/22 05:35 11/23/22 06:08 Labs: Laboratory Results - last 24 hr 11/23/22 06:08: Sodium 140, Potassium 3.0 L, Chloride 94 L, Carbon Dioxide 36.0 H, Anion Gap 10, BUN 60 H, Creatinine 3.97 H, Estim Creat Clear Calc 12.26, Est GFR (MDRD) Af Amer 19 L, Est GFR (MDRD) Non-Af 15 L, BUN/Creatinine Ratio 15.1, Glucose 111 H, Calcium 8.6 Physical Exam Narrative Alert awake oriented x 3. No apparent distress no JVD Normal S1, S2 on auscultation. There is a 2/6 systolic murmur lungs clear bilaterally abdomen soft, rounded Resolved lower extremity pitting edema, Ebenezer wraps intact to bilateral lower legs hui + Assessment & Plan Assessment/Plan (1) Stage 4 chronic kidney disease: (2) CHF exacerbation: (3) SOB (shortness of breath): PLAN: Plan Impression/Plan: The patient is an 82-year-old man with past history of CKD stage IV, type 2 diabetes mellitus, CAD status post CABG, heart failure with reduced ejection fraction who was admitted on 11/18/2022 with decompensated heart failure/volume overload. Nephrology is following for CKD and volume management. Chronic kidney disease stage IV. -Serum creatinine has been around 3.5 to 3.7 mg/dL prior to admission in July and October 2022. . -Since admission, his serum creatinine has been around 4.00 mg/dL which is an estimated GFR of 15 mL/min. -However, serum creatinine may be overestimating true glomerular filtration rate because of volume overload and low muscle mass. -Nevertheless, so far, the patient has been diuresing well without significant change in serum creatinine/eGFR. His weight has come down from 90.7 kg on presentation down to 74.3 kg in the last 5 days. His average weight loss has been around 3 kg/day with diuresis. -I will transition the patient to oral loop diuretic today. I will place the patient on bumetanide 2 mg twice a day. He had been on 1 mg twice a day prior to admission. We will continue metolazone at 5 mg once a day. -The patient should keep his appointment with Dr. Black for AV access evaluation/placement on 12/08/2022. -There is no urgent need for dialysis currently. However, he is at the borderline of needing dialysis, so permanent access should be placed in case he comes back in and needs dialysis or if he needs to start dialysis as outpatient. Hypokalemia. -Magnesium level has been acceptable. Last magnesium level from 11/22/2022 was 2.2 mg/dL. -Hypokalemia is due to diuresis. -Replace potassium deficit. Agree with continuing potassium chloride at 40 mEq twice a day. Potassium level has been trending up. Metabolic alkalosis. -Serum bicarbonate level has been rising as expected with diuresis. -Continue to monitor serum bicarbonate level. -We will treat with acetazolamide tomorrow if bicarbonate level continue to rise. Volume overload in the setting of advanced CKD and heart failure with reduced ejection fraction. The patient has lost 16.4 kg since admission to the hospital on Lasix drip. As discussed above, we will transition him to oral bumetanide and continue metolazone. He appears to be euvolemic now. There is no urgent need to start dialysis since EGFR is still around 15 mL/min without any uremic symptoms. The patient can be discharged from my standpoint if he tolerates oral diuretics without significant weight gain in next 24 hours. However, if he comes back in within 1 month with volume overload again, we will proceed with dialysis either with TDC or permanent access. Nephrology plan discussed with Dr. Aceves.
[2022-11-23] MEDS: metOLazone 5 MG Tablet PO (10:12)
[2022-11-23] MEDS: Tamsulosin HCl 0.4 MG Capsule PO (10:12)
[2022-11-23] MEDS: APIXABAN 2.5 MG TABLET (WCH) PO ×2 (10:13→23:11)
--- NOTE | 2022-11-23 12:14 | PN.HOSP_ITS ---
Subjective Subjective Patient is an 82-year-old gentleman admitted with progressive shortness of breath and assessment of acute on chronic CHF with with reduced ejection fraction made admitted to a monitored bed for subsequent management. Objective Data Objective Data Vital Signs: Vital Signs Temp Pulse Resp BP Pulse Ox O2 Del Method O2 Flow Rate 97.7 F L 60 16 107/49 L 98 Room Air 2.5 11/23/22 10:11 11/23/22 10:11 11/23/22 10:11 11/23/22 10:11 11/23/22 10:11 11/23/22 10:11 11/19/22 03:14 Oxygen Flow Rate (L/min) 2.5 Oxygen Delivery Method Room Air Weight: 74.3 kg Body Mass Index (BMI) 32.3 Intake & Output: Intake and Output for Last 24 Hours 11/21/22 11/22/22 11/23/22 23:59 23:59 23:59 Intake Total 783.02 / 783.02 1010 / 1230 307.18 / 307.18 Output Total 3400 / 3400 3725 / 4125 1200 / 1200 Balance -2616.98 / -2616.98 -2715 / -2895 -892.82 / -892.82 Lab / Micro Data Result Diagrams: 11/22/22 05:35 11/23/22 06:08 Labs: Laboratory Results - last 24 hr 11/23/22 06:08: Sodium 140, Potassium 3.0 L, Chloride 94 L, Carbon Dioxide 36.0 H, Anion Gap 10, BUN 60 H, Creatinine 3.97 H, Estim Creat Clear Calc 12.26, Est GFR (MDRD) Af Amer 19 L, Est GFR (MDRD) Non-Af 15 L, BUN/Creatinine Ratio 15.1, Glucose 111 H, Calcium 8.6 Physical Exam Narrative GENERAL: cooperative HEENT: Atraumatic; normocephalic EYES; Anicteric, Normal Conjunctiva NECK; supple, normal thyroid, RESPIRATORY: Diminished to auscultation CARDIOVASCULAR: Irregular S1-S2 GI: soft, normoactive bowel sounds, : No Renal angle tenderness; EXTREMITIES: No edema, no clubbing, MUSCULOSKELETAL: no muscle wasting NEURO: Awake; no lateralizing signs. SKIN: No Rash PSYCH; Flat affect Assessment & Plan Assessment/Plan (1) Heart failure: PLAN: Plan Patient is an 82-year-old gentleman admitted with progressive shortness of breath and assessment of acute on chronic CHF with with reduced ejection fraction made admitted to a monitored bed for subsequent management. 1. Acute on chronic congestive heart failure with reduced ejection fraction. -Patient managed admitted to a monitored bed managed with Lasix drip has since been replaced with bumetanide and 2 mg p.o. twice daily. Patient was previously on 1 mg daily. Case was discussed with nephrology prior to the switch. Patient being monitored with strict input and output, daily weight as well as daily BMPs 2. Hypokalemia ? Secondary to diuretic use corrected per protocol, repeat BMP ordered for a.m. 3. Chronic kidney disease stage IV ? Possibly secondary to hypertensive nephropathy. Monitoring with daily BMPs nephrology consulted Case discussed with Dr. Morris 4. Coronary artery disease ? With previous CABG and subsequent PCI. Patient remained stable on recommended medications 5. Paroxysmal A. fib ? Rate controlled on carvedilol on systemic anticoagulation with apixaban did continue 6. Dyslipidemia ? Patient is on atorvastatin did continue home dose 7. Rheumatoid arthritis ? Patient is stable on Plaquenil did continue home dose 8. BPH ? Symptoms controlled on finasteride and tamsulosin did continue with home dose with no adjustment made 9. GERD ? On PPI 10. Anemia - Secondary to chronic disorder monitoring H&H and transfuse if patient becomes symptomatic or hemoglobin falls below 7 11. DVT prophylaxis ? Patient is on apixaban did continue 12. Physical deconditioning - Requested for PT OT eval and criminal justice social worker to assist with discharge planning Total time spent on patient; 35 minutes Charges/Coding Visit Charges Inpatient E&M: 26643 Subs Hosp L2
[2022-11-23] MEDS: Bumetanide 2 MG Tablet PO (17:23)
--- NOTE | 2022-11-23 19:09 | PCM.PN.CARD ---
Subjective Subjective The patient was seen and evaluated. Appears to be doing much better today. Objective Data Vital Signs: Vital Signs Temp Pulse Resp BP Pulse Ox O2 Del Method O2 Flow Rate 98.2 F 60 16 118/61 97 Room Air 2.5 11/23/22 17:24 11/23/22 17:24 11/23/22 17:24 11/23/22 17:24 11/23/22 17:24 11/23/22 17:24 11/19/22 03:14 Oxygen Flow Rate (L/min) 2.5 Oxygen Delivery Method Room Air Weight: 163 lb 12.855 oz Body Mass Index (BMI) 32.3 Intake & Output: Intake and Output for Last 24 Hours 11/21/22 11/22/22 11/23/22 23:59 23:59 23:59 Intake Total 783.02 / 783.02 1010 / 1230 937.18 / 937.18 Output Total 3400 / 3400 3725 / 4125 3350 / 3350 Balance -2616.98 / -2616.98 -2715 / -2895 -2412.82 / -2412.82 Lab / Micro Data Result Diagrams: 11/22/22 05:35 11/23/22 06:08 Labs: Laboratory Results - last 24 hr 11/23/22 06:08: Sodium 140, Potassium 3.0 L, Chloride 94 L, Carbon Dioxide 36.0 H, Anion Gap 10, BUN 60 H, Creatinine 3.97 H, Estim Creat Clear Calc 12.26, Est GFR (MDRD) Af Amer 19 L, Est GFR (MDRD) Non-Af 15 L, BUN/Creatinine Ratio 15.1, Glucose 111 H, Calcium 8.6 Cardiology Labs/Tests 11/23/22 06:08: Sodium 140, Potassium 3.0 L, Chloride 94 L, Carbon Dioxide 36.0 H, Anion Gap 10, BUN 60 H, Creatinine 3.97 H, Est GFR (MDRD) Af Amer 19 L, Est GFR (MDRD) Non-Af 15 L, BUN/Creatinine Ratio 15.1, Glucose 111 H, Calcium 8.6 Rhythm: EKG: ECHO: Stress Test: Cardiac Cath: PCI: CT Surgery: Holter monitor: EPS: PPM: CXR: Chest CT Scan: Physical Exam Const alert, oriented x3 and no apparent distress Orientation / Consciousness: awake HEENT normocephalic, head/scalp atraumatic and hearing grossly normal bilaterally Eyes PERRL, EOMs intact bilaterally, conjunctivae normal and no scleral icterus Neck full ROM and supple Carotids: normal carotid upstroke Chest Chest: midline sternotomy incision Resp Auscultation: diminished lung sounds right lower Cardio regular rate, regular rhythm, S1 normal heart sound and S2 normal heart sound Cardio Narrative: Diminished heart tones GI normal to inspection, nondistended, normoactive bowel sounds Extremity General Extremity: edema bilateral lower extremity (Positive Ebenezer wraps in place: Appears less prominent than before) Details: moderate Skin no rashes or lesions noted Psych mental status grossly normal Assessment & Plan Assessment/Plan (1) CHF exacerbation: PLAN: The patient appears to have acute on chronic systolic mediated CHF. He is doing much better at this time and would continue with the current dose of intravenous diuresis. (2) Atherosclerosis of coronary artery without angina pectoris: PLAN: The patient has a history of CAD. He has not had any angina and his cardiac enzymes are negative and will continue with medical therapy as noted above above. (3) History of coronary artery stent placement: PLAN: He has a history of previous PCI's as noted. At the moment he does need to continue CAD risk factor evaluation/medical therapy. (4) H/O coronary artery bypass surgery: PLAN: He has a history of single-vessel CABG as noted. At the present time he continues risk factor modification medical therapy. (5) Ischemic cardiomyopathy: PLAN: He has recently undergone evaluation with transthoracic echocardiogram. The echocardiogram suggested he has diminished LV systolic function compatible with an ischemic mediated cardiomyopathy. This will include agents such as nitrates, beta-chad such as his carvedilol/Coreg, diuretic therapy as he is able and tolerates, afterload reducing agents which would include Apresoline/hydralazine based upon his renal insufficiency, potentially the addition of SGLT2 inhibitors. (6) Longstanding persistent atrial fibrillation: PLAN: The patient has a history of atrial fibrillation.He will continue rate limiting therapy. 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 he underwent EP evaluation in the past and is stable at this time. He will continue with the beta-chad (8) History of permanent cardiac pacemaker placement: PLAN: The patient has a permanent pacemaker in place. This appears to be functioning appropriately at this time (9) Hyperlipidemia: PLAN: The patient will continue lipid-lowering therapy with his atorvastatin. (10) Essential hypertension: PLAN: The patient's blood pressure will need to be followed. His medicines can be adjusted taking into consideration his renal insufficiency. (11) Stage 4 chronic kidney disease: PLAN: The patient states he is being prepared for end-stage renal failure/hemodialysis. He will continue to be followed up by nephrology.
[2022-11-23] MEDS: Mirtazapine 15 MG Tablet 45 MG PO (23:10)
[2022-11-23] MEDS: Atorvastatin Calcium 40 MG Tablet PO (23:11)
[2022-11-23] MEDS: LORazepam 0.5 MG Tablet PO (23:22)
[2022-11-24 05:05] VITALS: BP 114/65; PULSE 71; RESP 17; TEMP 36.6; O2SAT 97
[2022-11-24 06:22] LABS: Albumin, Serum 3.2 g/dL (3.2-5.0); BUN 68 mg/dL (7-18); BUN/Creat Ratio 16.6 RATIO (10-20); Calcium,Total 8.7 mg/dL (8.5-10.1); Chloride 94 mmol/L (98-107); EST Glomerular Filtration Rate 15 mL/min (>60); Est Glom Filt Rate - Afr Amer 18 mL/min (>60); Estimated Creatinine Clearance 11.88 ml/min; Glucose 113 mg/dL (74-106); Magnesium 2.2 mg/dL (1.6-2.6); Phosphorus 4.1 mg/dL (2.5-4.9); Potassium 3.3 mmol/L (3.5-5.1); Sodium Level 137 mmol/L (136-145)
[2022-11-24 06:59] VITALS: BP 145/66; PULSE 60
[2022-11-24] MEDS: hydrALAZINE 50 MG Tablet 100 MG PO (06:59)
[2022-11-24] MEDS: Isosorbide DN 20 MG Tablet PO (06:59)
[2022-11-24 07:33] VITALS: O2SAT 95
--- NOTE | 2022-11-24 07:50 | PN.CARD_ITS ---
Subjective Subjective Patient seen and evaluated. Appears to be stable this morning. No complaints. Has been walking up and down the hallways. Objective Data Vital Signs: Vital Signs Temp Pulse Resp BP Pulse Ox O2 Del Method O2 Flow Rate 97.8 F 60 17 145/66 H 97 Room Air 2.5 11/24/22 05:05 11/24/22 06:59 11/24/22 05:05 11/24/22 06:59 11/24/22 05:05 11/24/22 05:05 11/19/22 03:14 Oxygen Flow Rate (L/min) 2.5 Oxygen Delivery Method Room Air Weight: 162 lb 7.691 oz Body Mass Index (BMI) 32.3 Intake & Output: Intake and Output for Last 24 Hours 11/22/22 11/23/22 11/24/22 23:59 23:59 23:59 Intake Total 1010 / 1230 937.18 / 937.18 Output Total 3725 / 4125 3350 / 4350 1000 / 1000 Balance -2715 / -2895 -2412.82 / -3412.82 -1000 / -1000 Lab / Micro Data Result Diagrams: 11/22/22 05:35 11/24/22 05:05 Labs: Laboratory Results - last 24 hr 11/24/22 05:05: Sodium 137, Potassium 3.3 L, Chloride 94 L, Carbon Dioxide 40.0 H, BUN 68 H, Creatinine 4.10 H, Estim Creat Clear Calc 11.88, Est GFR (MDRD) Af Amer 18 L, Est GFR (MDRD) Non-Af 15 L, BUN/Creatinine Ratio 16.6, Glucose 113 H, Calcium 8.7, Phosphorus 4.1, Magnesium 2.2, Albumin 3.2 Cardiology Labs/Tests 11/24/22 05:05: Sodium 137, Potassium 3.3 L, Chloride 94 L, Carbon Dioxide 40.0 H, BUN 68 H, Creatinine 4.10 H, Est GFR (MDRD) Af Amer 18 L, Est GFR (MDRD) Non-Af 15 L, BUN/Creatinine Ratio 16.6, Glucose 113 H, Calcium 8.7, Phosphorus 4.1, Magnesium 2.2 Rhythm: EKG: ECHO: Stress Test: Cardiac Cath: PCI: CT Surgery: Holter monitor: EPS: PPM: CXR: Chest CT Scan: Physical Exam Const alert, oriented x3 and no apparent distress Orientation / Consciousness: awake HEENT normocephalic, head/scalp atraumatic and hearing grossly normal bilaterally Eyes PERRL, EOMs intact bilaterally, conjunctivae normal and no scleral icterus Neck full ROM and supple Carotids: normal carotid upstroke Chest Chest: midline sternotomy incision Resp Auscultation: diminished lung sounds right lower Cardio regular rate, regular rhythm, S1 normal heart sound and S2 normal heart sound Cardio Narrative: Diminished heart tones GI normal to inspection, nondistended, normoactive bowel sounds Extremity General Extremity: edema bilateral lower extremity (Positive Ebenezer wraps in place: Appears less prominent than before) Details: moderate Skin no rashes or lesions noted Psych mental status grossly normal Assessment & Plan Assessment/Plan (1) CHF exacerbation: PLAN: The patient appears to have acute on chronic systolic mediated CHF. He is doing much better at this time and would continue with the current dose of oral diuretics which have been switched from intravenous. (2) Atherosclerosis of coronary artery without angina pectoris: PLAN: The patient has a history of CAD. He has not had any angina and his cardiac enzymes are negative and will continue with medical therapy as noted above above. (3) History of coronary artery stent placement: PLAN: He has a history of previous PCI's as noted. At the moment he does need to continue CAD risk factor evaluation/medical therapy. (4) H/O coronary artery bypass surgery: PLAN: He has a history of single-vessel CABG as noted. At the present time he continues risk factor modification medical therapy. (5) Ischemic cardiomyopathy: PLAN: He has recently undergone evaluation with transthoracic echocardiogram. The echocardiogram suggested he has diminished LV systolic function compatible with an ischemic mediated cardiomyopathy. This will include agents such as nitrates, beta-chad such as his carvedilol/Coreg, diuretic therapy as he is able and tolerates, afterload reducing agents which would include Apresoline/hydralazine based upon his renal insufficiency, potentially the addition of SGLT2 inhibitors. (6) Longstanding persistent atrial fibrillation: PLAN: The patient has a history of atrial fibrillation.He will continue rate limiting therapy. 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 he underwent EP evaluation in the past and is stable at this time. He will continue with the beta-chad (8) History of permanent cardiac pacemaker placement: PLAN: The patient has a permanent pacemaker in place. This appears to be functioning appropriately at this time (9) Hyperlipidemia: PLAN: The patient will continue lipid-lowering therapy with his atorvastatin. (10) Essential hypertension: PLAN: The patient's blood pressure will need to be followed. His medicines can be adjusted taking into consideration his renal insufficiency. (11) Stage 4 chronic kidney disease: PLAN: The patient states he is being prepared for end-stage renal failure/hemodialysis. He will continue to be followed up by nephrology. His p otassium will need to be cautiously replaced.
[2022-11-24 08:29] VITALS: BP 108/56; PULSE 59; RESP 18; TEMP 36.4; O2SAT 97
[2022-11-24] MEDS: Aspirin 81 MG TAB.CHEW PO (08:30)
[2022-11-24] MEDS: Carvedilol 12.5 MG Tablet PO (08:30)
[2022-11-24] MEDS: Finasteride 5 MG Tablet PO (08:30)
[2022-11-24] MEDS: Potassium Chloride Oral Tablet 20 MEQ 40 MEQ PO ×2 (08:30→11:47)
[2022-11-24] MEDS: Ferrous Sulfate 325 MG Tablet PO (08:30)
[2022-11-24] MEDS: Calcium (Elemental) 500 MG Tablet PO (08:30)
[2022-11-24] MEDS: Pantoprazole Sodium 40 MG Tablet PO (08:31)
[2022-11-24] MEDS: Hydroxychloroquine 200 MG Tablet PO (08:31)
[2022-11-24 08:38] VITALS: O2SAT 97
--- NOTE | 2022-11-24 09:41 | PCM.PN.HOSP ---
Subjective Subjective Follow-up congestive heart failure Patient seen breathing back to baseline. Diagnostic data reviewed significant for potassium of 3.3. Additional replacement given. Patient to be assessed for possible discharge. Objective Data Objective Data Vital Signs: Vital Signs Temp Pulse Resp BP Pulse Ox O2 Del Method O2 Flow Rate 97.6 F L 59 L 18 108/56 L 97 Room Air 2.5 11/24/22 08:29 11/24/22 08:29 11/24/22 08:29 11/24/22 08:29 11/24/22 08:38 11/24/22 08:38 11/19/22 03:14 Oxygen Flow Rate (L/min) 2.5 Oxygen Delivery Method Room Air Weight: 73.7 kg Body Mass Index (BMI) 32.3 Intake & Output: Intake and Output for Last 24 Hours 11/22/22 11/23/22 11/24/22 23:59 23:59 23:59 Intake Total 1010 / 1230 937.18 / 937.18 Output Total 3725 / 4125 3350 / 4350 1000 / 1000 Balance -2715 / -2895 -2412.82 / -3412.82 -1000 / -1000 Lab / Micro Data Result Diagrams: 11/22/22 05:35 11/24/22 05:05 Labs: Laboratory Results - last 24 hr 11/24/22 05:05: Sodium 137, Potassium 3.3 L, Chloride 94 L, Carbon Dioxide 40.0 H, BUN 68 H, Creatinine 4.10 H, Estim Creat Clear Calc 11.88, Est GFR (MDRD) Af Amer 18 L, Est GFR (MDRD) Non-Af 15 L, BUN/Creatinine Ratio 16.6, Glucose 113 H, Calcium 8.7, Phosphorus 4.1, Magnesium 2.2, Albumin 3.2 Physical Exam Narrative GENERAL: cooperative HEENT: Atraumatic; normocephalic EYES; Anicteric, Normal Conjunctiva NECK; supple, normal thyroid, RESPIRATORY: Diminished to auscultation CARDIOVASCULAR: Irregular S1-S2 GI: soft, normoactive bowel sounds, : No Renal angle tenderness; EXTREMITIES: No edema, no clubbing, MUSCULOSKELETAL: no muscle wasting NEURO: Awake; no lateralizing signs. SKIN: No Rash PSYCH; Flat affect Assessment & Plan Assessment/Plan (1) Heart failure: PLAN: Plan Patient is an 82-year-old gentleman admitted with progressive shortness of breath and assessment of acute on chronic CHF with with reduced ejection fraction made admitted to a monitored bed for subsequent management. 1. Acute on chronic congestive heart failure with reduced ejection fraction. -Patient managed admitted to a monitored bed managed with Lasix drip has since been replaced with bumetanide and 2 mg p.o. twice daily. Patient was previously on 1 mg daily. Case was discussed with nephrology prior to the switch. Patient being monitored with strict input and output, daily weight as well as daily BMPs -11/24/2022. Patient to assess for potential discharge 2. Hypokalemia ? Secondary to diuretic use corrected per protocol, repeat BMP ordered for a.m. -11/24/2022 point. Potassium up to 3.3 additional replacement given 3. Chronic kidney disease stage IV ? Possibly secondary to hypertensive nephropathy. Monitoring with daily BMPs nephrology consulted Case discussed with Dr. Morris 4. Coronary artery disease ? With previous CABG and subsequent PCI. Patient remained stable on recommended medications 5. Paroxysmal A. fib ? Rate controlled on carvedilol on systemic anticoagulation with apixaban did continue 6. Dyslipidemia ? Patient is on atorvastatin did continue home dose 7. Rheumatoid arthritis ? Patient is stable on Plaquenil did continue home dose 8. BPH ? Symptoms controlled on finasteride and tamsulosin did continue with home dose with no adjustment made 9. GERD ? On PPI 10. Anemia - Secondary to chronic disorder monitoring H&H and transfuse if patient becomes symptomatic or hemoglobin falls below 7 11. DVT prophylaxis ? Patient is on apixaban did continue 12. Physical deconditioning - Requested for PT OT eval and social work professor to assist with discharge planning Total time spent on patient; 35 minutes Charges/Coding Visit Charges Inpatient E&M: 90390 Subs Hosp L2
[2022-11-24 10:38] VITALS: BP 106/51; PULSE 60; RESP 16; TEMP 36.7; O2SAT 94
[2022-11-24] MEDS: Bumetanide 2 MG Tablet PO (10:39)
[2022-11-24] MEDS: Tamsulosin HCl 0.4 MG Capsule PO (10:39)
[2022-11-24] MEDS: metOLazone 5 MG Tablet PO (10:39)
[2022-11-24] MEDS: APIXABAN 2.5 MG TABLET (WCH) PO (10:39)
--- NOTE | 2022-11-24 11:34 | DS.PCM_ITS ---
Providers Date of Admission: 11/18/22 Date of Discharge: 11/24/22 Primary Care Physician: Dr. Samuel Avendaño MD Consultations 11/19/22 00:02 Consult: Cardiology Routine Consulting Provider: Bry Tong Reason for Consult: Acute on chronic heart failure EMERGENT Consult: No Notified: Yes Date Notified: 11/18/22 Time Notified: 22:34 Method of Notification: Verbal 11/19/22 09:10 Consult: Nephrology Routine Consulting Provider: Marialuisa Harrington Reason for Consult: Dialysis? Renal failure EMERGENT Consult: No Notified: Yes Date Notified: 11/19/22 Time Notified: 09:14 Method of Notification: Answering Service Reason For Visit: ACUTE ON CHRONIC HEART FAILURE WITH REDUCED EF Diagnosis Discharge Diagnosis (1) Heart failure: Status: Acute Code(s): I50.9 - Heart failure, unspecified Plan Patient is an 82-year-old gentleman admitted with progressive shortness of breath and assessment of acute on chronic CHF with with reduced ejection fraction made admitted to a monitored bed for subsequent management. 1. Acute on chronic congestive heart failure with reduced ejection fraction. -Patient managed admitted to a monitored bed managed with Lasix drip has since been replaced with bumetanide and 2 mg p.o. twice daily. Patient was previously on 1 mg daily. Case was discussed with nephrology prior to the switch. Patient being monitored with strict input and output, daily weight as well as daily BMPs -11/24/2022. Patient to assess for potential discharge 2. Hypokalemia ? Secondary to diuretic use corrected per protocol, repeat BMP ordered for a.m. -11/24/2022 point. Potassium up to 3.3 additional replacement given 3. Chronic kidney disease stage IV ? Possibly secondary to hypertensive nephropathy. Monitoring with daily BMPs nephrology consulted Case discussed with Dr. Morris 4. Coronary artery disease ? With previous CABG and subsequent PCI. Patient remained stable on recommended medications 5. Paroxysmal A. fib ? Rate controlled on carvedilol on systemic anticoagulation with apixaban did continue 6. Dyslipidemia ? Patient is on atorvastatin did continue home dose 7. Rheumatoid arthritis ? Patient is stable on Plaquenil did continue home dose 8. BPH ? Symptoms controlled on finasteride and tamsulosin did continue with home dose with no adjustment made 9. GERD ? On PPI 10. Anemia - Secondary to chronic disorder monitoring H&H and transfuse if patient becomes symptomatic or hemoglobin falls below 7 11. DVT prophylaxis ? Patient is on apixaban did continue 12. Physical deconditioning - Requested for PT OT eval and protective services social worker to assist with discharge planning Total time spent on patient; 35 minutes Medications at Discharge Home Medications aspirin 81 mg chewable tablet 81 mg PO DAILY@0800 blood thinner 03/10/14 hydroxychloroquine 200 mg tablet 200 mg PO DAILY arthritis 09/26/20 SIMPHONI 1 dose IV BOLUS .QOMONTH ARTHRITIS 09/08/21 acetaminophen 500 mg tablet 500 mg PO Q6H PRN PAIN 09/08/21 apixaban 2.5 mg tablet (Eliquis) 2.5 mg PO BID A fib 09/08/21 calcium carbonate 500 mg calcium (1,250 mg) tablet 500 mg PO DAILY SUPPLEMENT 09/08/21 mirtazapine 45 mg tablet 45 mg PO DAILY MOOD 09/08/21 ferrous sulfate 325 mg (65 mg iron) tablet 325 mg PO DAILY iron supplement 08/21/22 finasteride 5 mg tablet 5 mg PO DAILY prostate 08/21/22 tamsulosin 0.4 mg capsule 0.4 mg PO DAILY prostate 08/21/22 isosorbide dinitrate 20 mg tablet 20 mg PO TID HEART #270 tabs 08/25/22 lorazepam 0.5 mg tablet 0.5 mg PO QHS anxiety 10/07/22 atorvastatin 40 mg tablet 40 mg PO QHS BP 11/19/22 carvedilol 12.5 mg tablet 12.5 mg PO BID BP 11/19/22 hydralazine 100 mg tablet 100 mg PO TID BP 11/19/22 pantoprazole 40 mg tablet,delayed release 40 mg PO DAILY GERD 11/19/22 tramadol 50 mg tablet 50 mg PO TID PRN Pain 11/19/22 bumetanide 1 mg tablet 2 mg PO BID 30 days #120 tabs 11/24/22 potassium chloride 20 mEq tablet,extended release 40 meq PO DAILY diuretic 30 days #60 tabs 11/24/22 Hospital Course Summary of Care Provided Minutes Spent on Discharge: 35 Physical Exam Narrative GENERAL: cooperative HEENT: Atraumatic; normocephalic EYES; Anicteric, Normal Conjunctiva NECK; supple, normal thyroid, RESPIRATORY: Diminished to auscultation CARDIOVASCULAR: Irregular S1-S2 GI: soft, normoactive bowel sounds, : No Renal angle tenderness; EXTREMITIES: No edema, no clubbing, MUSCULOSKELETAL: no muscle wasting NEURO: Awake; no lateralizing signs. SKIN: No Rash PSYCH; Flat affect Weight / BMI Weight Weight: 73.7 kg Body Mass Index (BMI) 32.3 ABG / Lab / Microbiology Data Result Diagrams: 11/22/22 05:35 11/24/22 05:05 Laboratory: Laboratory Results - last 24 hr 11/24/22 05:05: Sodium 137, Potassium 3.3 L, Chloride 94 L, Carbon Dioxide 40.0 H, BUN 68 H, Creatinine 4.10 H, Estim Creat Clear Calc 11.88, Est GFR (MDRD) Af Amer 18 L, Est GFR (MDRD) Non-Af 15 L, BUN/Creatinine Ratio 16.6, Glucose 113 H, Calcium 8.7, Phosphorus 4.1, Magnesium 2.2, Albumin 3.2 D/C Instructions Discharge Diet: 8 Cup Fluid Restriction Discharge Activity: Return to Normal Activity Call your doctor if you observe: Fever of 101 or Higher, Shortness of breath, Fainting spells and Chest pain Meaningful Use Info Meaningful Use Diagnoses (Choose all that apply): CHF CHF RICARDO/ARB ordered at discharge?: No Reason RICARDO/ARB not ordered?: Worsening renal disease Documented LVEF (%): 40 Discharge Plan Admission Admit Date/Time: 11/18/22 22:23 Attending Provider: Karl Aceves Primary Care Provider: Samuel Avendaño Consulting Providers: Bry Tong ; Porter Granda ; Marialuisa Harrington ; Isaak Hernandez Discharge Orders/Prescriptions Prescriptions: Continued tamsulosin 0.4 mg capsule 0.4 mg PO DAILY finasteride 5 mg tablet 5 mg PO DAILY Label Comments: TAKE 1 TABLET BY MOUTH DAILY aspirin 81 MG tablet,chewable 81 mg PO DAILY@0800 Hold Instructions: Resume on 11/19/21. Label Comments: LAST DOSE 10/30/21 hydroxychloroquine 200 MG tablet 200 mg PO DAILY ferrous sulfate 325 mg (65 mg iron) tablet 325 mg PO DAILY lorazepam 0.5 mg Tablet 0.5 mg PO QHS mirtazapine 45 mg tablet 45 mg PO DAILY Label Comments: Take 1 tablet by mouth at bedtime Eliquis 2.5 mg tablet 2.5 mg PO BID Hold Instructions: Resume on 11/19/21. Label Comments: LAST DOSE 10/30/21 SIMPHONI 1 dose IV BOLUS .QOMONTH Hold Instructions: Resume on 11/19/21. acetaminophen 500 mg Tablet 500 mg PO Q6H PRN (Reason: PAIN) calcium carbonate 500 mg calcium (1,250 mg) Tablet 500 mg PO DAILY tramadol 50 mg Tablet 50 mg PO TID PRN (Reason: Pain) atorvastatin 40 MG tablet 40 mg PO QHS carvedilol 12.5 MG tablet 12.5 mg PO BID hydralazine 100 mg tablet 100 mg PO TID pantoprazole 40 MG tablet,delayed release (DR/EC) 40 mg PO DAILY isosorbide dinitrate 20 mg tablet 20 mg PO TID Qty: 270 3RF Changed bumetanide 1 mg tablet 2 mg PO BID 30 Days Qty: 120 0RF Label Comments: Take one tablet by mouth two times daily. potassium chloride 20 mEq tablet extended release 40 meq PO DAILY 30 Days Qty: 60 0RF Discontinued torsemide 20 mg tablet 20 mg PO BID Referrals / Follow Up: Samuel Avendaño MD [Primary Care Provider] - 11/27/22 11:30 am ( ) Marialuisa Harrington MD [Med Staff - Consulting] - Within 2 Weeks Bry Tong MD [Med Staff - Active Staff] - Within 2 Weeks Disposition Disposition (needs filled in before D/C Order can be placed): Home, Self Care Charges/Coding Visit Charges Inpatient E&M: 34827 Disch Hosp >30min
--- NOTE | 2022-11-24 11:57 | PHA.DC.MR ---
Pharmacy Service has performed discharge medication reconciliation for this patient. The patient's discharge medication list was reviewed for discrepancies and discrepancies were resolved. Home Medications aspirin 81 mg chewable tablet 81 mg PO DAILY@0800 blood thinner 03/10/14 hydroxychloroquine 200 mg tablet 200 mg PO DAILY arthritis 09/26/20 SIMPHONI 1 dose IV BOLUS .QOMONTH ARTHRITIS 09/08/21 acetaminophen 500 mg tablet 500 mg PO Q6H PRN PAIN 09/08/21 apixaban 2.5 mg tablet (Eliquis) 2.5 mg PO BID A fib 09/08/21 calcium carbonate 500 mg calcium (1,250 mg) tablet 500 mg PO DAILY SUPPLEMENT 09/08/21 mirtazapine 45 mg tablet 45 mg PO DAILY MOOD 09/08/21 ferrous sulfate 325 mg (65 mg iron) tablet 325 mg PO DAILY iron supplement 08/21/22 finasteride 5 mg tablet 5 mg PO DAILY prostate 08/21/22 tamsulosin 0.4 mg capsule 0.4 mg PO DAILY prostate 08/21/22 isosorbide dinitrate 20 mg tablet 20 mg PO TID HEART #270 tabs 08/25/22 lorazepam 0.5 mg tablet 0.5 mg PO QHS anxiety 10/07/22 atorvastatin 40 mg tablet 40 mg PO QHS BP 11/19/22 carvedilol 12.5 mg tablet 12.5 mg PO BID BP 11/19/22 hydralazine 100 mg tablet 100 mg PO TID BP 11/19/22 pantoprazole 40 mg tablet,delayed release 40 mg PO DAILY GERD 11/19/22 tramadol 50 mg tablet 50 mg PO TID PRN Pain 11/19/22 bumetanide 1 mg tablet 2 mg PO BID 30 days #120 tabs 11/24/22 potassium chloride 20 mEq tablet,extended release 40 meq PO DAILY diuretic 30 days #60 tabs 11/24/22
--- NOTE | 2022-11-24 12:27 | CASEMGMT ---
Patient has order for discharge. JOSE CM in to discuss discharge needs with patient. Patient declines HHC at this time. States son and DIL live next door and check on him frequently. Patient states he feels he is at his baseline. Patient states he has CCN that comes on . RN JEAN updated Cash at [facility] of discharge today. Patient had no further questions or concerns at this time.
--- NOTE | 2022-11-24 14:56 | PCM.PN.REN ---
Subjective Subjective Following for LUCAS on CKD. The patient denies current shortness of breath at rest. There is no chest pain. There is no recurrent edema after transitioning to oral diuretic. He is going home today. He has an outpatient appointment with our office. Objective Data Objective Data Vital Signs: Vital Signs Temp Pulse Resp BP Pulse Ox O2 Del Method O2 Flow Rate 98.1 F 60 16 106/51 L 94 Room Air 2.5 11/24/22 10:38 11/24/22 10:38 11/24/22 10:38 11/24/22 10:38 11/24/22 10:38 11/24/22 10:38 11/19/22 03:14 Oxygen Flow Rate (L/min) 2.5 Oxygen Delivery Method Room Air Weight: 73.7 kg Body Mass Index (BMI) 32.3 Intake & Output: Intake and Output for Last 24 Hours 11/22/22 11/23/22 11/24/22 23:59 23:59 23:59 Intake Total 1010 / 1230 937.18 / 937.18 320 / 320 Output Total 3725 / 4125 3350 / 4350 1600 / 1600 Balance -2715 / -2895 -2412.82 / -3412.82 -1280 / -1280 Lab / Micro Data Result Diagrams: 11/22/22 05:35 11/24/22 05:05 Labs: Laboratory Results - last 24 hr 11/24/22 05:05: Sodium 137, Potassium 3.3 L, Chloride 94 L, Carbon Dioxide 40.0 H, BUN 68 H, Creatinine 4.10 H, Estim Creat Clear Calc 11.88, Est GFR (MDRD) Af Amer 18 L, Est GFR (MDRD) Non-Af 15 L, BUN/Creatinine Ratio 16.6, Glucose 113 H, Calcium 8.7, Phosphorus 4.1, Magnesium 2.2, Albumin 3.2 Physical Exam Narrative Alert awake oriented x 3. No apparent distress no JVD Normal S1, S2 on auscultation. There is a 2/6 systolic murmur lungs clear bilaterally abdomen soft, rounded Resolved lower extremity pitting edema, Ebenezer wraps intact to bilateral lower legs hui + Assessment & Plan Assessment/Plan (1) Stage 4 chronic kidney disease: (2) CHF exacerbation: (3) SOB (shortness of breath): PLAN: Plan Impression/Plan: The patient is an 82-year-old man with past history of CKD stage IV, type 2 diabetes mellitus, CAD status post CABG, heart failure with reduced ejection fraction who was admitted on 11/18/2022 with decompensated heart failure/volume overload. Nephrology is following for CKD and volume management. Chronic kidney disease stage IV. -Serum creatinine has been around 3.5 to 3.7 mg/dL prior to admission in July and October 2022. . -Since admission, his serum creatinine has been around 3.90-4.00 mg/dL which is an estimated GFR of 15 mL/min. Serum creatinine is 4.10 mg/dL today, but his estimated GFR is still around 15 mL/min. -However, serum creatinine may be overestimating true glomerular filtration rate because of volume overload and low muscle mass. -Nevertheless, so far, the patient has been diuresing well without significant change in serum creatinine/eGFR. His weight has come down from 90.7 kg on presentation down to 73.7 kg in the last 6 days. His average weight loss has been around 3 kg/day with diuresis. -I transitioned the patient to oral loop diuretic yesterday. I will place the patient on bumetanide 2 mg twice a day. He had been on 1 mg twice a day prior to admission. We will continue metolazone at 5 mg once a day. -The patient should keep his appointment with Dr. Black for AV access evaluation/placement on 12/08/2022. -There is no urgent need for dialysis currently. However, he is at the borderline of needing dialysis, so permanent access should be placed in case he comes back in and needs dialysis or if he needs to start dialysis as outpatient. Hypokalemia. -Magnesium level has been acceptable. Last magnesium level from 11/22/2022 was 2.2 mg/dL. -Hypokalemia is due to diuresis. -Continue to replace potassium deficit. Agree with continuing potassium chloride at 40 mEq twice a day. Potassium level has been trending up. Metabolic alkalosis. -Serum bicarbonate level has been rising as expected with diuresis. -Continue to monitor serum bicarbonate level. -We will treat with acetazolamide if bicarbonate level continue to rise. Volume overload in the setting of advanced CKD and heart failure with reduced ejection fraction. The patient has lost more than 15 kg since admission to the hospital on Lasix drip. As discussed above, we have transitioned him to oral bumetanide yesterday. We should continue metolazone. He appears to be euvolemic now. There is no urgent need to start dialysis since EGFR is still around 15 mL/min without any uremic symptoms. The patient can be discharged from my standpoint since he tolerates oral diuretics without significant weight gain in next 24 hours. However, if he comes back in within 1 month with volume overload again, we will proceed with dialysis either with TDC or permanent access. Nephrology plan will be discussed with Dr. Aceves.
== END 2022-11-24 14:16 | disposition home or self-care (01) | DRG 291 ==
LOC: ED 22:38 → PCU 23:02
PROVIDERS: Family Medicine; Internal Medicine Nephrology; Nurse Practitioner Adult Health; Physician Assistant; Admitting Provider Hospitalist; Emergency Provider Emergency Medicine; PCP Family Medicine; Visit Provider Internal Medicine
DX: I13.0 Hypertensive heart and chronic kidney disease with heart failure and stage 1 through stage 4 chronic kidney disease, or unspecified chronic kidney disease (principal); I50.23 Acute on chronic systolic (congestive) heart failure; I47.20 Ventricular tachycardia, unspecified; I48.11 Longstanding persistent atrial fibrillation; N18.4 Chronic kidney disease, stage 4 (severe); I27.21 Secondary pulmonary arterial hypertension; D63.8 Anemia in other chronic diseases classified elsewhere; E11.22 Type 2 diabetes mellitus with diabetic chronic kidney disease; J44.9 Chronic obstructive pulmonary disease, unspecified; J84.10 Pulmonary fibrosis, unspecified; M06.9 Rheumatoid arthritis, unspecified; I25.10 Atherosclerotic heart disease of native coronary artery without angina pectoris; E78.5 Hyperlipidemia, unspecified; I25.5 Ischemic cardiomyopathy; K21.9 Gastro-esophageal reflux disease without esophagitis; E87.6 Hypokalemia; N40.0 Benign prostatic hyperplasia without lower urinary tract symptoms; Z79.82 Long term (current) use of aspirin; Z79.01 Long term (current) use of anticoagulants; Z79.899 Other long term (current) drug therapy; Z95.0 Presence of cardiac pacemaker; Z95.1 Presence of aortocoronary bypass graft; Z95.5 Presence of coronary angioplasty implant and graft
CPT/HCPCS: 36415; 71045; 80048; 80069; 83735; 83880; 84484; 85025; 93005; 94760; 97162; 97166; 99284; A4216; J1940

== ENCOUNTER → 2022-11-26 | Outpatient (CLI) | payer MEDICARE, OTHER, SELFPAY ==
[2022-11-26 17:33] LABS: Hematocrit 36.4 % (40-54); Hemoglobin 11.6 g/dL (13.0-16.5); Mean Corp Hgb Conc 31.9 g/dL (32-36); Mean Corpuscular Hgb 29.2 pg (27.0-32.0); Mean Corpuscular Volume 91.7 fL (80-94); Mean Platelet Vol. 11.2 fl (6.2-12.0); Platelet Count 239 K/mm3 (150-450); RBC Distribution Width CV 16.2 % (11.6-14.6); RBC Distribution Width SD 54.1 fl (35.1-43.9); Red Blood Count 3.97 M/mm3 (4.6-6.2); White Blood Count 6.7 K/mm3 (4.4-11.0)
[2022-11-26 17:55] LABS: Albumin, Serum 3.4 g/dL (3.2-5.0); BUN 78 mg/dL (7-18); BUN/Creat Ratio 16.5 RATIO (10-20); Calcium,Total 9.2 mg/dL (8.5-10.1); Chloride 93 mmol/L (98-107); Creatinine, Serum 4.74 mg/dL (0.70-1.30); EST Glomerular Filtration Rate 13 mL/min (>60); Est Glom Filt Rate - Afr Amer 15 mL/min (>60); Glucose 224 mg/dL (74-106); Phosphorus 4.5 mg/dL (2.5-4.9); Potassium 4.1 mmol/L (3.5-5.1); Sodium Level 139 mmol/L (136-145)
[2022-11-26 18:00] LABS: Vitamin D,25 Hydroxy 64.4 ng/mL
[2022-11-26 18:13] LABS: Microalbumin:Creatinine Ratio 437.5 mg/g CRE (<30 mg/g CRE); Protein, Urine (Random) 63.2 mg/dL (<11.9); Protein:Creat Ratio 1234 mg/g CRE (0-200)
[2022-11-27 07:28] LABS: PTHIN 151.3 pg/mL (18.4-80.1)
== END | disposition home or self-care (01) ==
LOC: MTLAB 14:53
PROVIDERS: PCP Family Medicine; Referring Provider Internal Medicine Nephrology; Visit Provider Internal Medicine Nephrology
DX: N18.4 Chronic kidney disease, stage 4 (severe) (principal)
CPT/HCPCS: 36415; 80069; 82043; 82306; 82570; 83970; 84156; 85027

== ENCOUNTER → 2022-12-14 | Outpatient (CLI) | payer MEDICARE, OTHER, SELFPAY ==
[2022-12-14 18:28] LABS: Anion Gap 9 (5-15); BUN 73 mg/dL (7-18); Calcium,Total 8.7 mg/dL (8.5-10.1); Chloride 108 mmol/L (98-107); Creatinine, Serum 3.85 mg/dL (0.70-1.30); EST Glomerular Filtration Rate 16 mL/min (>60); Est Glom Filt Rate - Afr Amer 19 mL/min (>60); Glucose 224 mg/dL (74-106); Potassium 5.1 mmol/L (3.5-5.1); Sodium Level 142 mmol/L (136-145)
[2022-12-14 18:52] LABS: Hepatitis B Surface Antibody Non-Reactive; Hepatitis B Surface Antigen Non-Reactive (Nonreactive)
[2022-12-18 21:25] LABS: Hepatitis B Core AB IgM Negative (Negative)
== END | disposition home or self-care (01) ==
LOC: MTLAB 15:33
PROVIDERS: Physician Assistant Medical; PCP Family Medicine; Referring Provider Internal Medicine Nephrology; Visit Provider Internal Medicine Nephrology
DX: N18.4 Chronic kidney disease, stage 4 (severe) (principal)
CPT/HCPCS: 36415; 80048; 86705; 86706; 87340

== ENCOUNTER → 2023-01-19 | Outpatient (CLI) | payer MEDICARE, OTHER, SELFPAY ==
[2023-01-19 10:00] LABS: Absolute Lymphocyte Count 1.26 X10^3/uL (0.83-4.51); Absolute Neutrophil Count 5.2 X10^3/uL (2.0-7.7); Basophil# 0.11 X10^3/uL; Basophil% 1.4 % (0-1); Eosinophil# 0.33 X10^3/uL; Eosinophils% 4.2 % (0-5); Hematocrit 32.4 % (40-54); Hemoglobin 10.2 g/dL (13.0-16.5); Lymphocyte # 1.26 X10^3/ul (0.83-4.51); Lymphocyte % 15.9 % (19-41); Mean Corp Hgb Conc 31.5 g/dL (32-36); Mean Corpuscular Hgb 29.2 pg (27.0-32.0); Mean Corpuscular Volume 92.8 fL (80-94); Mean Platelet Vol. 12.3 fl (6.2-12.0); Monocyte# 0.96 X10^3/uL; Monocyte% 12.1 % (0-10); NRBC Flagged by Analyzer 0 % (0-5); Neutrophil # 5.23 X10^3/uL (2.7-7.7); Neutrophil % 65.8 % (47-70); Platelet Count 154 K/mm3 (150-450); RBC Distribution Width SD 54.4 fl (35.1-43.9); Red Blood Count 3.49 M/mm3 (4.6-6.2); White Blood Count 7.9 K/mm3 (4.4-11.0)
[2023-01-19 10:21] LABS: ALB/GLOB Ratio 0.8 RATIO (0.9-2.4); AST(SGOT) 17 U/L (15-37); Alanine Aminotransfer ALT/SGPT 19 U/L (16-61); Alkaline Phosphatase 68 U/L (45-117); Anion Gap 11 (5-15); BUN 64 mg/dL (7-18); Calcium,Total 8.9 mg/dL (8.5-10.1); Chloride 96 mmol/L (98-107); Creatinine, Serum 4.01 mg/dL (0.70-1.30); EST Glomerular Filtration Rate 15 mL/min (>60); Est Glom Filt Rate - Afr Amer 19 mL/min (>60); Globulin 3.8 g/dL (2.2-4.2); Glucose 385 mg/dL (74-106); Protein, Total 6.8 g/dL (6.4-8.2); Sodium Level 136 mmol/L (136-145)
== END | disposition home or self-care (01) ==
LOC: MTLAB 09:04
PROVIDERS: PCP Family Medicine; Referring Provider Internal Medicine Rheumatology; Visit Provider Internal Medicine Rheumatology
DX: M06.09 Rheumatoid arthritis without rheumatoid factor, multiple sites (principal); I48.91 Unspecified atrial fibrillation; J84.10 Pulmonary fibrosis, unspecified; E11.9 Type 2 diabetes mellitus without complications; Z79.899 Other long term (current) drug therapy; M79.7 Fibromyalgia; M15.9 Polyosteoarthritis, unspecified; I25.10 Atherosclerotic heart disease of native coronary artery without angina pectoris; M48.061 Spinal stenosis, lumbar region without neurogenic claudication; I10 Essential (primary) hypertension; M47.897 Other spondylosis, lumbosacral region
CPT/HCPCS: 36415; 80053; 85025

== ENCOUNTER → 2023-01-29 | Outpatient (REF) | payer MEDICARE, OTHER, MEDICAID, SELFPAY ==
[2023-01-29 08:13] LABS: Hematocrit 33.5 % (40-54); Hemoglobin 10.4 g/dL (13.0-16.5); Mean Corpuscular Hgb 29.6 pg (27.0-32.0); Mean Corpuscular Volume 95.4 fL (80-94); Mean Platelet Vol. 12.8 fl (6.2-12.0); POSITIVE COUNT YES; RBC Distribution Width CV 15.7 % (11.6-14.6); RBC Distribution Width SD 55.2 fl (35.1-43.9); Red Blood Count 3.51 M/mm3 (4.6-6.2); White Blood Count 9.4 K/mm3 (4.4-11.0)
[2023-01-29 08:21] LABS: Anion Gap 10 (5-15); BUN 56 mg/dL (7-18); BUN/Creat Ratio 15.6 RATIO (10-20); Calcium,Total 9.2 mg/dL (8.5-10.1); Chloride 99 mmol/L (98-107); Creatinine, Serum 3.58 mg/dL (0.70-1.30); EST Glomerular Filtration Rate 17 mL/min (>60); Est Glom Filt Rate - Afr Amer 21 mL/min (>60); Glucose 259 mg/dL (74-106); Potassium 4.4 mmol/L (3.5-5.1); Sodium Level 137 mmol/L (136-145)
[2023-01-29 08:23] LABS: Hemoglobin A1c 9.6 % (3.8-5.6)
[2023-01-29 08:51] LABS: Scan Indicated on CBC? Y/N YES- FLAGS NOTED
== END ==
LOC: OLS.SW 05:00
PROVIDERS: PCP Family Medicine; Visit Provider Family Medicine
DX: R79.9 Abnormal finding of blood chemistry, unspecified (principal); R97.8 Other abnormal tumor markers; Z13.228 Encounter for screening for other metabolic disorders; Z79.899 Other long term (current) drug therapy
CPT/HCPCS: 36415; 80048; 83036; 85027

== ENCOUNTER 2023-02-03 22:12 | Emergency (ER) | payer MEDICARE, OTHER, SELFPAY ==
[2023-02-03 22:13] VITALS: BP 120/49; PULSE 60; RESP 15; TEMP 36.1; O2SAT 95; BMI 29.6
--- NOTE | 2023-02-03 23:50 | EX.ED.DYSGE1 ---
HPI History of Present Illness Chief Complaint: Other, Pain/Inj Narrative Narrative: Patient is a 82-year-old male with past medical history of type 2 diabetes chronic kidney disease on dialysis hypertension and long-term use of anticoagulation. Patient has a fistula in his right upper arm which she states needs revised and they have not used for multiple weeks. He states this evening he was just sitting around trying to go to bed when he felt like his arm was wet. He states he looked down and realized it was bleeding and secondary to this he was sent to the hospital for evaluation. [facility] Medical History (Updated 02/03/23 @ 23:[address] Hoang Ruiz, DO) LUCAS (acute kidney injury) Ambulates with cane Amiodarone pulmonary toxicity Anemia Arthritis Atherosclerosis of coronary artery without angina pectoris AV block, Mobitz II BPH (benign prostatic hyperplasia) COPD (chronic obstructive pulmonary disease) Diabetes mellitus, type II Dialysis complication Essential hypertension Fibromyalgia Gastric reflux Heart failure with reduced ejection fraction History of steroid therapy Hyperlipidemia Ischemic cardiomyopathy Longstanding persistent atrial fibrillation Loss of hearing Non-smoker Nonrheumatic aortic (valve) stenosis On home oxygen therapy Peritoneal dialysis catheter in place Prostate disease Pulmonary fibrosis Rheumatoid arthritis 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 Symptomatic bradycardia Tinea manus Tinea unguium Weakness Wears glasses Home Medications aspirin 81 mg chewable tablet 81 mg PO DAILY@0800 blood thinner 03/10/14 [History Last Taken 10/29/21] hydroxychloroquine 200 mg tablet 200 mg PO DAILY arthritis 09/26/20 [History Last Taken 11/18/22 08:00] SIMPHONI 1 dose IV BOLUS .QOMONTH ARTHRITIS 09/08/21 [History Last Taken 1 Month Ago ~08/09/21] acetaminophen 500 mg tablet 500 mg PO Q6H PRN PAIN 09/08/21 [History Last Taken 09/07/21] apixaban 2.5 mg tablet (Eliquis) 2.5 mg PO BID A fib 09/08/21 [History Last Taken 10/29/21] calcium carbonate 500 mg calcium (1,250 mg) tablet 500 mg PO DAILY SUPPLEMENT 09/08/21 [History Last Taken 11/04/21] mirtazapine 45 mg tablet 45 mg PO DAILY MOOD 09/08/21 [History Last Taken 11/04/21] ferrous sulfate 325 mg (65 mg iron) tablet 325 mg PO DAILY iron supplement 08/21/22 [History Last Taken 11/18/22 12:00] tamsulosin 0.4 mg capsule 0.4 mg PO DAILY prostate 08/21/22 [History Last Taken 11/17/22 21:00] isosorbide dinitrate 20 mg tablet 20 mg PO TID HEART #270 tabs 08/25/22 [Rx Last Taken 11/18/22 12:00] lorazepam 0.5 mg tablet 0.5 mg PO QHS anxiety 10/07/22 [History Last Taken Unknown] atorvastatin 40 mg tablet 40 mg PO QHS BP 11/19/22 [History Last Taken 11/17/22 21:00] carvedilol 12.5 mg tablet 12.5 mg PO BID BP 11/19/22 [History Last Taken 11/18/22 08:00] pantoprazole 40 mg tablet,delayed release 40 mg PO DAILY GERD 11/19/22 [History Last Taken Unknown] tramadol 50 mg tablet 50 mg PO TID PRN Pain 11/19/22 [History Last Taken Unknown] potassium chloride 20 mEq tablet,extended release 40 meq PO DAILY diuretic 30 days #60 tabs 11/24/22 [Rx Last Taken Unknown] bumetanide 2 mg tablet 2 mg PO TID 12/25/22 [History Last Taken Unknown] Allergy/AdvReac Type Severity Reaction Status Date / Time amiodarone Allergy Mild PT UNSURE Verified 02/03/23 22:15 OF REACTION simvastatin Allergy Mild Other Verified 02/03/23 22:15 hydralazine Allergy PT UNSURE Verified 02/03/23 22:15 OF REACTION Penicillins Allergy Rash Verified 02/03/23 22:15 rosuvastatin [From Crestor] Allergy PT UNSURE Verified 02/03/23 22:15 OF REACTION Family History (Reviewed 12/25/22 @ 10:42 by José Antonio Hicks REGULATORY SUBMISSIONS ASSOCIATE, REGULATORY SUBMISSIONS ASSOCIATE-C) Other CAD (coronary artery disease) Hypertension Seizures Surgical History H/O coronary artery bypass surgery (07/11/07) History of cholecystectomy (01/2021) History of coronary artery stent placement (05/28/17) History of left heart catheterization (05/06/10) History of lumbar fusion (02/2017) History of permanent cardiac pacemaker placement (07/19/18) History of radiofrequency ablation procedure for cardiac arrhythmia (08/25/13) History of right and left heart catheterization (05/28/17) Hx of appendectomy Hx of bilateral cataract extraction Social History (Reviewed 12/25/22 @ 10:42 by José Antonio Hicks REGULATORY SUBMISSIONS ASSOCIATE, REGULATORY SUBMISSIONS ASSOCIATE-C) current occupational status: retired Smoking Status: Never smoker alcohol intake: never substance use type: does not use ROS ROS ED Constitutional Constitutional ED: Denies chills or fever(s) ENT ENT ED: Denies sore throat Cardiovascular Cardiovascular: Denies chest pain Respiratory/Chest Respiratory/Chest: Denies cough or dyspnea Gastrointestinal Gastrointestinal: Denies abdominal pain, diarrhea, nausea or vomiting Musculoskeletal Musculoskeletal: Denies myalgias Integumentary Reports other Details: Positive laceration ; Denies rash Neurologic Neurologic: Denies headache(s) Hematologic/Lymphatic Hematologic/Lymphatic: Reports easy bleeding and easy bruising EXAM Physical Exam Const Vital Signs: 02/03/23 22:13 Temperature 96.9 F L Temperature Source Temporal Pulse Rate 60 Respiratory Rate 15 Blood Pressure 120/49 L Blood Pressure Mean 72 Pulse Ox 95 Oxygen Delivery Method Room Air Positive well nourished and well developed General Appearance ED: well developed Eyes PERRL and EOMs intact bilaterally Neck supple Resp normal respiratory effort and clear to auscultation bilaterally Cardio regular rate and regular rhythm Extremity Extremity Narrative: Patient has a fistula present in his right mid upper arm with palpable thrill and good bruit. Overlying this is a linear 1.5 cm subcutaneous layer deep laceration with mild blood and no foreign body. No secondary changes to suggest infection Neuro oriented x3 and CN's II-XII intact bilaterally Sensorium / Orientation: alert Psych mental status grossly normal Skin no rashes or lesions noted Skin Narrative: Laceration to the right upper arm as documented above MDM MDM MDM Narrative Medical decision making narrative: Patient presented to the ER with stable vitals and he is neurovascular intact and exam shows a spontaneous laceration to the right arm above the old fistula. At this time he has no arterial bleed there is minimal ooze of blood and no sign of infection. Therefore there is no need for imaging or laboratory studies. The wound was closed as documented below. Following this there is good hemostasis of the site with no further bleeding activity as patient does not have signs of neurovascular compromise or secondary infection there is no need for further evaluation he is otherwise safe for discharge. Patient had the right arm laceration cleaned with chlorhexidine. It was anesthetized with 6 mL of 1% lidocaine without epinephrine in local fashion. The wound was copiously irrigated with normal saline. Then four 4-0 Ethilon sutures were placed in simple interrupted fashion. This brought the wound together with good approximation. Patient tolerated procedure well without complication History & Record Review Discussion w/independent historian: Patient Discharge Plan Triage Chief Complaint: Other, Pain/Inj ED Provider: Hoang Ruiz Dx/Rx/DC Orders Clinical Impression: Hemorrhage of surgically-created arteriovenous fistula, Current use of adjunct faculty for medical terminology anticoagulation, Chronic kidney disease on chronic dialysis Instructions: ED Laceration Extremity Prescriptions: No Action tamsulosin 0.4 mg capsule 0.4 mg PO DAILY bumetanide 2 mg tablet 2 mg PO TID Rx Instructions: HOLD on dialysis days only aspirin 81 MG tablet,chewable 81 mg PO DAILY@0800 Hold Instructions: Resume on 11/19/21. Label Comments: LAST DOSE 10/30/21 hydroxychloroquine 200 MG tablet 200 mg PO DAILY ferrous sulfate 325 mg (65 mg iron) tablet 325 mg PO DAILY lorazepam 0.5 mg Tablet 0.5 mg PO QHS mirtazapine 45 mg tablet 45 mg PO DAILY Label Comments: Take 1 tablet by mouth at bedtime Eliquis 2.5 mg tablet 2.5 mg PO BID Hold Instructions: Resume on 11/19/21. Label Comments: LAST DOSE 10/30/21 SIMPHONI 1 dose IV BOLUS .QOMONTH Hold Instructions: Resume on 11/19/21. acetaminophen 500 mg Tablet 500 mg PO Q6H PRN (Reason: PAIN) calcium carbonate 500 mg calcium (1,250 mg) Tablet 500 mg PO DAILY tramadol 50 mg Tablet 50 mg PO TID PRN (Reason: Pain) atorvastatin 40 MG tablet 40 mg PO QHS carvedilol 12.5 MG tablet 12.5 mg PO BID pantoprazole 40 MG tablet,delayed release (DR/EC) 40 mg PO DAILY potassium chloride 20 mEq tablet extended release 40 meq PO DAILY 30 Days Qty: 60 0RF isosorbide dinitrate 20 mg tablet 20 mg PO TID Qty: 270 3RF Primary Care Provider: Samuel Avendaño Referrals: Ranney,Samuel, MD [Primary Care Provider] - Activity Restrictions/Additional Instructions: Please wear your pressure dressing tonight and you can remove it tomorrow morning to afternoon. See your family doctor or return to the ER in 5 to 7 days for suture removal Disposition Disposition: Home, Self Care
[2023-02-04 00:12] VITALS: BP 118/51; PULSE 62; RESP 18
== END 2023-02-04 01:58 | disposition home or self-care (01) ==
PROVIDERS: Emergency Provider Emergency Medicine; PCP Family Medicine; Visit Provider Emergency Medicine
DX: T82.838A Hemorrhage due to vascular prosthetic devices, implants and grafts, initial encounter (principal); Z99.2 Dependence on renal dialysis; J44.9 Chronic obstructive pulmonary disease, unspecified; I50.20 Unspecified systolic (congestive) heart failure; I13.0 Hypertensive heart and chronic kidney disease with heart failure and stage 1 through stage 4 chronic kidney disease, or unspecified chronic kidney disease; E11.22 Type 2 diabetes mellitus with diabetic chronic kidney disease; N18.4 Chronic kidney disease, stage 4 (severe); E78.5 Hyperlipidemia, unspecified; Z79.01 Long term (current) use of anticoagulants; I25.10 Atherosclerotic heart disease of native coronary artery without angina pectoris; Y82.8 Other medical devices associated with adverse incidents
CPT/HCPCS: 99284

== ENCOUNTER → 2023-02-07 | Outpatient (REF) | payer MEDICARE, OTHER, MEDICAID, SELFPAY | LOC: OLS.SW 10:06 | PROVIDERS: PCP Family Medicine; Visit Provider Family Medicine | DX: R19.7 Diarrhea, unspecified (principal) | CPT/HCPCS: 87493 ==

== ENCOUNTER → 2023-02-11 | Outpatient (REF) | payer MEDICARE, OTHER, MEDICAID, SELFPAY ==
[2023-02-11 09:10] LABS: Hemoglobin A1c 9.4 % (3.8-5.6)
== END ==
LOC: OLS.SW 05:00
PROVIDERS: PCP Family Medicine; Visit Provider Family Medicine
DX: E11.22 Type 2 diabetes mellitus with diabetic chronic kidney disease (principal); N18.9 Chronic kidney disease, unspecified
CPT/HCPCS: 36415; 83036

== ENCOUNTER → 2023-02-15 | Outpatient (REF) | payer MEDICARE, MEDICAID, SELFPAY ==
[2023-02-15 08:58] LABS: Absolute Lymphocyte Count 1.66 X10^3/uL (0.83-4.51); Absolute Neutrophil Count 4.9 X10^3/uL (2.0-7.7); Basophil# 0.07 X10^3/uL; Basophil% 0.8 % (0-1); Eosinophil# 0.48 X10^3/uL; Eosinophils% 5.8 % (0-5); Hematocrit 32.6 % (40-54); Hemoglobin 10.2 g/dL (13.0-16.5); Lymphocyte # 1.66 X10^3/ul (0.83-4.51); Mean Corp Hgb Conc 31.3 g/dL (32-36); Mean Corpuscular Hgb 29.4 pg (27.0-32.0); Mean Corpuscular Volume 93.9 fL (80-94); Mean Platelet Vol. 12.1 fl (6.2-12.0); Monocyte# 1.23 X10^3/uL; Monocyte% 14.8 % (0-10); NRBC Flagged by Analyzer 0 % (0-5); Neutrophil # 4.85 X10^3/uL (2.7-7.7); Neutrophil % 58.4 % (47-70); Platelet Count 110 K/mm3 (150-450); RBC Distribution Width CV 14.5 % (11.6-14.6); RBC Distribution Width SD 49.5 fl (35.1-43.9); Red Blood Count 3.47 M/mm3 (4.6-6.2); White Blood Count 8.3 K/mm3 (4.4-11.0)
[2023-02-15 09:17] LABS: ALB/GLOB Ratio 0.8 RATIO (0.9-2.4); AST(SGOT) 30 U/L (15-37); Alanine Aminotransfer ALT/SGPT 23 U/L (16-61); Albumin, Serum 3.1 g/dL (3.2-5.0); Alkaline Phosphatase 63 U/L (45-117); Anion Gap 8 (5-15); BUN 88 mg/dL (7-18); BUN/Creat Ratio 16.3 RATIO (10-20); Calcium,Total 8.9 mg/dL (8.5-10.1); Chloride 109 mmol/L (98-107); EST Glomerular Filtration Rate 11 mL/min (>60); Est Glom Filt Rate - Afr Amer 13 mL/min (>60); Globulin 3.9 g/dL (2.2-4.2); Glucose 109 mg/dL (74-106); Potassium 4.8 mmol/L (3.5-5.1); Sodium Level 140 mmol/L (136-145)
== END ==
LOC: OLS.SW 05:00
PROVIDERS: PCP Family Medicine; Visit Provider Family Medicine
DX: M06.09 Rheumatoid arthritis without rheumatoid factor, multiple sites (principal); Z79.891 Long term (current) use of opiate analgesic; Z79.899 Other long term (current) drug therapy
CPT/HCPCS: 36415; 80053; 85025

== ENCOUNTER → 2023-03-08 | Outpatient (REF) | payer MEDICARE, OTHER, MEDICAID, SELFPAY ==
[2023-03-08 08:50] LABS: Hematocrit 34.6 % (40-54); Hemoglobin 10.4 g/dL (13.0-16.5); Mean Corp Hgb Conc 30.1 g/dL (32-36); Mean Corpuscular Hgb 29.2 pg (27.0-32.0); Mean Corpuscular Volume 97.2 fL (80-94); Mean Platelet Vol. 11.9 fl (6.2-12.0); Platelet Count 171 K/mm3 (150-450); RBC Distribution Width CV 14.6 % (11.6-14.6); Red Blood Count 3.56 M/mm3 (4.6-6.2); White Blood Count 9.8 K/mm3 (4.4-11.0)
[2023-03-08 09:24] LABS: ALB/GLOB Ratio 0.8 RATIO (0.9-2.4); AST(SGOT) 25 U/L (15-37); Alanine Aminotransfer ALT/SGPT 21 U/L (16-61); Albumin, Serum 3.2 g/dL (3.2-5.0); Alkaline Phosphatase 73 U/L (45-117); Anion Gap 6 (5-15); BUN 79 mg/dL (7-18); BUN/Creat Ratio 15.2 RATIO (10-20); Calcium,Total 8.9 mg/dL (8.5-10.1); Chloride 106 mmol/L (98-107); EST Glomerular Filtration Rate 11 mL/min (>60); Est Glom Filt Rate - Afr Amer 14 mL/min (>60); Globulin 4.1 g/dL (2.2-4.2); Glucose 80 mg/dL (74-106); Potassium 4.7 mmol/L (3.5-5.1); Protein, Total 7.3 g/dL (6.4-8.2); Sodium Level 138 mmol/L (136-145)
== END ==
LOC: OLS.SW 05:00
PROVIDERS: PCP Family Medicine; Visit Provider Family Medicine
DX: E11.22 Type 2 diabetes mellitus with diabetic chronic kidney disease (principal); N18.6 End stage renal disease; I48.91 Unspecified atrial fibrillation
CPT/HCPCS: 36415; 80053; 85027

== ENCOUNTER → 2023-03-10 | Outpatient (REF) | payer MEDICARE, OTHER, SELFPAY | LOC: OLS.SW 16:17 | PROVIDERS: PCP Family Medicine; Visit Provider Family Medicine | DX: A04.71 Enterocolitis due to Clostridium difficile, recurrent (principal) | CPT/HCPCS: 87493 ==

== ENCOUNTER → 2023-03-26 | Outpatient (REF) | payer MEDICARE, MEDICAID, SELFPAY | LOC: OLS.SW 19:29 | PROVIDERS: PCP Family Medicine; Visit Provider Family Medicine | DX: R19.7 Diarrhea, unspecified (principal) | CPT/HCPCS: 87506 ==

== ENCOUNTER → 2023-03-29 | Outpatient (REF) | payer MEDICARE, MEDICAID, SELFPAY ==
[2023-03-29 09:10] LABS: Hematocrit 30.9 % (40-54); Hemoglobin 9.2 g/dL (13.0-16.5); Mean Corp Hgb Conc 29.8 g/dL (32-36); Mean Corpuscular Hgb 29.3 pg (27.0-32.0); Mean Corpuscular Volume 98.4 fL (80-94); Mean Platelet Vol. 11.2 fl (6.2-12.0); Platelet Count 157 K/mm3 (150-450); RBC Distribution Width CV 14.1 % (11.6-14.6); RBC Distribution Width SD 50.8 fl (35.1-43.9); Red Blood Count 3.14 M/mm3 (4.6-6.2); White Blood Count 7.5 K/mm3 (4.4-11.0)
[2023-03-29 09:23] LABS: ALB/GLOB Ratio 0.9 RATIO (0.9-2.4); AST(SGOT) 24 U/L (15-37); Alanine Aminotransfer ALT/SGPT 21 U/L (16-61); Alkaline Phosphatase 64 U/L (45-117); Anion Gap 8 (5-15); BUN 67 mg/dL (7-18); BUN/Creat Ratio 11.8 RATIO (10-20); Calcium,Total 8.6 mg/dL (8.5-10.1); Chloride 106 mmol/L (98-107); Creatinine, Serum 5.68 mg/dL (0.70-1.30); EST Glomerular Filtration Rate 10 mL/min (>60); Est Glom Filt Rate - Afr Amer 12 mL/min (>60); Globulin 3.5 g/dL (2.2-4.2); Glucose 73 mg/dL (74-106); Protein, Total 6.5 g/dL (6.4-8.2); Sodium Level 144 mmol/L (136-145)
== END ==
LOC: OLS.SW 05:00
PROVIDERS: PCP Family Medicine; Visit Provider Family Medicine
DX: E78.5 Hyperlipidemia, unspecified (principal); E11.22 Type 2 diabetes mellitus with diabetic chronic kidney disease; N18.6 End stage renal disease
CPT/HCPCS: 36415; 80053; 85027

== ENCOUNTER → 2023-04-19 | Outpatient (REF) | payer MEDICARE, MEDICAID, SELFPAY ==
[2023-04-19 09:03] LABS: Hematocrit 32.8 % (40-54); Hemoglobin 9.9 g/dL (13.0-16.5); Mean Corp Hgb Conc 30.2 g/dL (32-36); Mean Corpuscular Hgb 29.1 pg (27.0-32.0); Mean Corpuscular Volume 96.5 fL (80-94); Mean Platelet Vol. 10.5 fl (6.2-12.0); Platelet Count 223 K/mm3 (150-450); RBC Distribution Width CV 13.3 % (11.6-14.6); White Blood Count 9.3 K/mm3 (4.4-11.0)
[2023-04-19 09:20] LABS: ALB/GLOB Ratio 0.6 RATIO (0.9-2.4); AST(SGOT) 32 U/L (15-37); Alanine Aminotransfer ALT/SGPT 24 U/L (16-61); Albumin, Serum 2.7 g/dL (3.2-5.0); Alkaline Phosphatase 67 U/L (45-117); Anion Gap 6 (5-15); BUN 79 mg/dL (7-18); BUN/Creat Ratio 13.2 RATIO (10-20); Calcium,Total 8.1 mg/dL (8.5-10.1); Chloride 105 mmol/L (98-107); Creatinine, Serum 5.98 mg/dL (0.70-1.30); EST Glomerular Filtration Rate 10 mL/min (>60); Est Glom Filt Rate - Afr Amer 12 mL/min (>60); Globulin 4.2 g/dL (2.2-4.2); Glucose 82 mg/dL (74-106); Potassium 4.6 mmol/L (3.5-5.1); Protein, Total 6.9 g/dL (6.4-8.2); Sodium Level 138 mmol/L (136-145)
== END ==
LOC: OLS.SW 04:00
PROVIDERS: PCP Family Medicine; Referring Provider Family Medicine; Visit Provider Family Medicine
DX: I48.91 Unspecified atrial fibrillation (principal); E11.22 Type 2 diabetes mellitus with diabetic chronic kidney disease; N18.6 End stage renal disease
CPT/HCPCS: 36415; 80053; 85027

== ENCOUNTER → 2023-04-30 | Outpatient (REF) | payer MEDICARE, MEDICAID, SELFPAY ==
[2023-04-30 09:06] LABS: Cholesterol 96 mg/dL (200); High Density Lipoprotein 35 mg/dL; Triglycerides 61 mg/dL; Very Low Density Lipoprotein 12 mg/dL (5-40)
== END ==
LOC: OLS.SW 05:55
PROVIDERS: PCP Family Medicine; Visit Provider Family Medicine
DX: E11.22 Type 2 diabetes mellitus with diabetic chronic kidney disease (principal); N18.6 End stage renal disease
CPT/HCPCS: 36415; 80061; 83036

== ENCOUNTER → 2023-05-10 | Outpatient (REF) | payer MEDICARE, OTHER, MEDICAID, SELFPAY ==
[2023-05-10 09:06] LABS: Hematocrit 29.9 % (40-54); Mean Corp Hgb Conc 30.1 g/dL (32-36); Mean Corpuscular Hgb 29.7 pg (27.0-32.0); Mean Corpuscular Volume 98.7 fL (80-94); Mean Platelet Vol. 10.8 fl (6.2-12.0); Platelet Count 179 K/mm3 (150-450); RBC Distribution Width CV 14.3 % (11.6-14.6); Red Blood Count 3.03 M/mm3 (4.6-6.2); White Blood Count 7.7 K/mm3 (4.4-11.0)
[2023-05-10 09:14] LABS: ALB/GLOB Ratio 0.8 RATIO (0.9-2.4); AST(SGOT) 13 U/L (15-37); Alanine Aminotransfer ALT/SGPT 11 U/L (16-61); Alkaline Phosphatase 57 U/L (45-117); Anion Gap 7 (5-15); BUN 82 mg/dL (7-18); BUN/Creat Ratio 14.1 RATIO (10-20); Calcium,Total 8.5 mg/dL (8.5-10.1); Chloride 108 mmol/L (98-107); Creatinine, Serum 5.81 mg/dL (0.70-1.30); EST Glomerular Filtration Rate 10 mL/min (>60); Est Glom Filt Rate - Afr Amer 12 mL/min (>60); Globulin 3.7 g/dL (2.2-4.2); Glucose 73 mg/dL (74-106); Protein, Total 6.7 g/dL (6.4-8.2); Sodium Level 142 mmol/L (136-145)
== END ==
LOC: OLS.SW 05:00
PROVIDERS: PCP Family Medicine; Visit Provider Family Medicine
DX: E11.22 Type 2 diabetes mellitus with diabetic chronic kidney disease (principal); N18.6 End stage renal disease
CPT/HCPCS: 36415; 80053; 85027

== ENCOUNTER → 2023-05-31 | Outpatient (REF) | payer MEDICARE, MEDICAID, SELFPAY ==
[2023-05-31 08:12] LABS: Hematocrit 32.8 % (40-54); Hemoglobin 10.2 g/dL (13.0-16.5); Mean Corp Hgb Conc 31.1 g/dL (32-36); Mean Corpuscular Hgb 30.5 pg (27.0-32.0); Mean Corpuscular Volume 98.2 fL (80-94); Mean Platelet Vol. 10.6 fl (6.2-12.0); Platelet Count 140 K/mm3 (150-450); RBC Distribution Width CV 14.3 % (11.6-14.6); RBC Distribution Width SD 50.9 fl (35.1-43.9); Red Blood Count 3.34 M/mm3 (4.6-6.2); White Blood Count 7.2 K/mm3 (4.4-11.0)
[2023-05-31 09:01] LABS: ALB/GLOB Ratio 0.8 RATIO (0.9-2.4); AST(SGOT) 21 U/L (15-37); Alanine Aminotransfer ALT/SGPT 20 U/L (16-61); Albumin, Serum 3.4 g/dL (3.2-5.0); Alkaline Phosphatase 62 U/L (45-117); Anion Gap 7 (5-15); BUN 102 mg/dL (7-18); BUN/Creat Ratio 16.3 RATIO (10-20); Calcium,Total 8.7 mg/dL (8.5-10.1); Chloride 108 mmol/L (98-107); Creatinine, Serum 6.24 mg/dL (0.70-1.30); EST Glomerular Filtration Rate 9 mL/min (>60); Est Glom Filt Rate - Afr Amer 11 mL/min (>60); Globulin 4.1 g/dL (2.2-4.2); Glucose 103 mg/dL (74-106); Potassium 4.8 mmol/L (3.5-5.1); Protein, Total 7.5 g/dL (6.4-8.2); Sodium Level 142 mmol/L (136-145)
== END ==
LOC: OLS.SW 04:00
PROVIDERS: PCP Family Medicine; Referring Provider Family Medicine; Visit Provider Family Medicine
DX: N18.6 End stage renal disease (principal); Z99.2 Dependence on renal dialysis
CPT/HCPCS: 36415; 80053; 85027

== ENCOUNTER 2023-06-15 11:22 | Emergency (ER) | payer MEDICAID, MEDICARE, SELFPAY ==
[2023-06-15 11:24] VITALS: BP 159/65; PULSE 60; RESP 12; TEMP 36.1; O2SAT 98; BMI 32.5
--- NOTE | 2023-06-15 12:07 | EKG12_ITS ---
Test Reason : cp Blood Pressure : / mmHG Vent. Rate : 060 BPM Atrial Rate : 063 BPM P-R Int : 000 ms QRS Dur : 226 ms QT Int : 560 ms P-R-T Axes : 000 -84 106 degrees QTc Int : 560 ms Ventricular-paced rhythm Abnormal ECG Confirmed by KARL WEBB, LYNDSEY ([id number]), development editor CHIQUITA HEWITT ([id number]) on 06/17/2023 8:51:04 AM Referred By: Starr Confirmed By:ANTWON BARAJAS MD
--- NOTE | 2023-06-15 12:08 | EX.ED.UPPERE ---
HPI History of Present Illness HPI Narrative: Patient presents with left shoulder and arm pain that has been getting worse over the last 3 days. Patient denies any trauma or injury. Patient states his pain is worse with movement and better with Tylenol. Patient states he has also been having some intermittent sweats. Patient states the seem to be worse after exercising. Patient denies any trauma or injury. Patient also admits to some left facial paresthesias that were intermittent yesterday. Patient denies any headaches. Patient admits to some nausea but denies any vomiting. Patient denies any fevers or chills. Chief Complaint: Upper Extremity Injury Informant: patient Onset/Context/Timing Onset: Days Context: Gradual Onset Timing: Continuous Quality of Pain: - (Heavy) Location: Left shoulder, left arm, and left elbow Worsened by: Movement Relieved by: Tylenol Associated Symptoms Associated Symptoms: Positive for Parasthesia (Left face that has resolved); Negative for Weakness or Loss of Funtion PFSH PFS Medical History LUCAS (acute kidney injury) Ambulates with cane Amiodarone pulmonary toxicity Anemia Arthritis Atherosclerosis of coronary artery without angina pectoris AV block, Mobitz II BPH (benign prostatic hyperplasia) COPD (chronic obstructive pulmonary disease) Diabetes mellitus, type II Dialysis complication Essential hypertension Fibromyalgia Gastric reflux Heart failure with reduced ejection fraction History of steroid therapy Hyperlipidemia Ischemic cardiomyopathy Longstanding persistent atrial fibrillation Loss of hearing Non-smoker Nonrheumatic aortic (valve) stenosis On home oxygen therapy Peritoneal dialysis catheter in place Prostate disease Pulmonary fibrosis Rheumatoid arthritis 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 Symptomatic bradycardia Tinea manus Tinea unguium Weakness Wears glasses Home Medications aspirin 81 mg chewable tablet 81 mg PO DAILY@0800 blood thinner 03/10/14 [History Last Taken 10/29/21] hydroxychloroquine 200 mg tablet 200 mg PO DAILY arthritis 09/26/20 [History Last Taken 11/18/22 08:00] SIMPHONI 1 dose IV BOLUS .QOMONTH ARTHRITIS 09/08/21 [History Last Taken 1 Month Ago ~08/09/21] acetaminophen 500 mg tablet 500 mg PO Q6H PRN PAIN 09/08/21 [History Last Taken 09/07/21] apixaban 2.5 mg tablet (Eliquis) 2.5 mg PO BID A fib 09/08/21 [History Last Taken 10/29/21] calcium carbonate 500 mg calcium (1,250 mg) tablet 500 mg PO DAILY SUPPLEMENT 09/08/21 [History Last Taken 11/04/21] mirtazapine 45 mg tablet 45 mg PO DAILY MOOD 09/08/21 [History Last Taken 11/04/21] ferrous sulfate 325 mg (65 mg iron) tablet 325 mg PO DAILY iron supplement 08/21/22 [History Last Taken 11/18/22 12:00] tamsulosin 0.4 mg capsule 0.4 mg PO DAILY prostate 08/21/22 [History Last Taken 11/17/22 21:00] isosorbide dinitrate 20 mg tablet 20 mg PO TID HEART #270 tabs 08/25/22 [Rx Last Taken 11/18/22 12:00] lorazepam 0.5 mg tablet 0.5 mg PO QHS anxiety 10/07/22 [History Last Taken Unknown] atorvastatin 40 mg tablet 40 mg PO QHS BP 11/19/22 [History Last Taken 11/17/22 21:00] carvedilol 12.5 mg tablet 12.5 mg PO BID BP 11/19/22 [History Last Taken 11/18/22 08:00] pantoprazole 40 mg tablet,delayed release 40 mg PO DAILY GERD 11/19/22 [History Last Taken Unknown] tramadol 50 mg tablet 50 mg PO TID PRN Pain 11/19/22 [History Last Taken Unknown] potassium chloride 20 mEq tablet,extended release 40 meq (2 x 20 mEq) PO DAILY diuretic 30 days #60 tabs 11/24/22 [Rx Last Taken Unknown] bumetanide 2 mg tablet 2 mg PO TID 12/25/22 [History Last Taken Unknown] hydrocodone-acetaminophen 5-325mg 5mg-325mg 1 tab PO Q6H PRN PRN Pain 3 days #10 TABLETS 06/15/23 [Rx Last Taken Unknown] Allergy/AdvReac Type Severity Reaction Status Date / Time amiodarone Allergy Mild PT UNSURE Verified 06/15/23 11:30 OF REACTION simvastatin Allergy Mild Other Verified 06/15/23 11:30 lovastatin [From Advicor] Allergy Unknown UNKNOWN Verified 06/15/23 11:30 niacin [From Advicor] Allergy Unknown UNKNOWN Verified 06/15/23 11:30 pravastatin [From Pravachol] Allergy Unknown UNKNOWN Verified 06/15/23 11:30 hydralazine Allergy PT UNSURE Verified 06/15/23 11:30 OF REACTION Penicillins Allergy Rash Verified 06/15/23 11:30 rosuvastatin [From Crestor] Allergy PT UNSURE Verified 06/15/23 11:30 OF REACTION Family History (Reviewed 12/25/22 @ 10:42 by José Antonio Hicks [employer], [employer]) Other CAD (coronary artery disease) Hypertension Seizures Surgical History H/O coronary artery bypass surgery (07/11/07) History of cholecystectomy (01/2021) History of coronary artery stent placement (05/28/17) History of left heart catheterization (05/06/10) History of lumbar fusion (02/2017) History of permanent cardiac pacemaker placement (07/19/18) History of radiofrequency ablation procedure for cardiac arrhythmia (08/25/13) History of right and left heart catheterization (05/28/17) Hx of appendectomy Hx of bilateral cataract extraction Social History current occupational status: retired Smoking Status: Never smoker alcohol intake: never substance use type: does not use ROS ROS ED Constitutional Constitutional ED: Denies chills or fever(s) Eyes Eyes: Denies blurry vision or change in vision ENT ENT ED: Denies rhinorrhea or sore throat Cardiovascular Cardiovascular: Denies chest pain or palpitations Respiratory/Chest Respiratory/Chest: Denies cough or dyspnea Gastrointestinal Gastrointestinal: Reports nausea; Denies vomiting Genitourinary Genitourinary ED: Denies dysuria or hematuria Musculoskeletal Musculoskeletal: Denies back pain or neck pain Integumentary Denies abscess or rash Neurologic Neurologic: Denies headache(s) or weakness Allergic/Immunologic Allergic/Immunologic ED: Denies mouth swelling or urticaria EXAM Physical Exam Const Vital Signs: 06/15/23 11:24 Temperature 97 F L Temperature Source Temporal Pulse Rate 60 Respiratory Rate 12 Blood Pressure 159/65 H Blood Pressure Mean 96 Pulse Ox 98 Oxygen Delivery Method Room Air Positive well nourished and well developed General Appearance ED: well developed and NAD HEENT Reports moist mucous membranes Neck supple and no JVD Resp normal respiratory effort and clear to auscultation bilaterally Cardio regular rate and regular rhythm GI normal to inspection, nondistended, normoactive bowel sounds and non-tender Palpation: soft Extremity normal to inspection Extremity Narrative: There is tenderness to palpation over the left shoulder, left humerus, and left elbow. There is no edema or ecchymosis. There is no obvious deformity noted. Range of motion was limited in all motions of the left shoulder secondary to pain. Radial pulses are equal bilaterally. Strength is 5/5 in the radial, median, and ulnar areas. Sensation is intact to light touch in the radial, median, and ulnar areas. General Extremety ED: Yes tenderness; Negative for edema General Extremity: Negative for edema Neuro oriented x3, CN's II-XII intact bilaterally and no sensory deficits noted Sensorium / Orientation: alert Motor Exam: strength 5/5 throughout Psych mental status grossly normal Skin no rashes or lesions noted MDM MDM MDM Narrative Medical decision making narrative: Differential diagnosis includes cardiac dysrhythmia, cardiac ischemia, pneumonia, pneumothorax, arthritis, gout, musculoskeletal pain, electrolyte abnormality, dehydration, and peripheral neuropathy. EKG will be obtained to assess for cardiac dysrhythmia and cardiac ischemia. CBC will be obtained to assess for leukocytosis and anemia. Basic metabolic profile will be obtained to assess for electrolyte abnormality and renal function. High-sensitivity troponin will be obtained to assess for cardiac ischemia. Chest x-ray will be obtained to assess for pneumonia and pneumothorax. Uric acid will be obtained to assess for gout. Lab Data Attestation: I reviewed the patient's lab results. Lab results narrative: CBC was reviewed. There is a slight leukocytosis of 11.3. Hemoglobin was 10.9 hematocrit 34.5. This is stable compared to previous results. Platelets were 119. Basic metabolic profile was reviewed. BUN was 61 and creatinine was 4.33. These are consistent with prior results. Glucose was 181. Uric acid was reviewed and was actually low at 2.8. High-sensitivity troponin was reviewed and was normal at 78. EKG Initial EKG: Attestation: I personally reviewed and interpreted this EKG as follows: Interpretation: No Acute Injury Pattern, Paced and LBBB Comments: EKG was obtained. On my independent interpretation, there is a paced rhythm with a rate of 60. QRS 0 was prolonged at 226 ms. QTc interval was 560 ms. There is left axis deviation at -84. There is a left bundle branch block pattern noted. There are no acute ST or T wave changes noted. Prior EKG tracings: available for review Prior: Unchanged (11/18/2022) Treatment and Re-Evaluation Narrative: Patient was given aspirin here. Patient was given a dose of morphine. Patient was feeling better on reevaluation. Patient was advised of his findings. Patient was given a prescription for [place]. Patient was instructed to follow-up with his primary care physician in 5 to 7 days. Patient understood and was agreeable with the plan. All questions were answered. Discharge Plan Triage Chief Complaint: Upper Extremity Injury Other Complaint: Nausea/Vomiting ED Provider: Piter Jc Dx/Rx/DC Orders Clinical Impression: Left arm pain, CKD (chronic kidney disease) Instructions: ED Pain, Acute, Uncertain Cause Prescriptions: New hydrocodone-acetaminophen [hydrocodone-acetaminophen] 5-325 mg tablet 1 tab PO Q6H PRN PRN (Reason: Pain) 3 Days Qty: 10 0RF No Action tamsulosin 0.4 mg capsule 0.4 mg PO DAILY bumetanide 2 mg tablet 2 mg PO TID Rx Instructions: HOLD on dialysis days only aspirin 81 MG tablet,chewable 81 mg PO DAILY@0800 Hold Instructions: Resume on 11/19/21. Patient Comments: LAST DOSE 10/30/21 hydroxychloroquine 200 MG tablet 200 mg PO DAILY ferrous sulfate 325 mg (65 mg iron) tablet 325 mg PO DAILY lorazepam 0.5 mg Tablet 0.5 mg PO QHS mirtazapine 45 mg tablet 45 mg PO DAILY Patient Comments: Take 1 tablet by mouth at bedtime Eliquis 2.5 mg tablet 2.5 mg PO BID Hold Instructions: Resume on 11/19/21. Patient Comments: LAST DOSE 10/30/21 SIMPHONI 1 dose IV BOLUS .QOMONTH Hold Instructions: Resume on 11/19/21. acetaminophen 500 mg Tablet 500 mg PO Q6H PRN (Reason: PAIN) calcium carbonate 500 mg calcium (1,250 mg) Tablet 500 mg PO DAILY tramadol 50 mg Tablet 50 mg PO TID PRN (Reason: Pain) atorvastatin 40 MG tablet 40 mg PO QHS carvedilol 12.5 MG tablet 12.5 mg PO BID pantoprazole 40 MG tablet,delayed release (DR/EC) 40 mg PO DAILY potassium chloride 20 mEq tablet extended release 40 meq PO DAILY 30 Days Qty: 60 0RF isosorbide dinitrate 20 mg tablet 20 mg PO TID Qty: 270 3RF Primary Care Provider: Bry Patel Referrals: Bry Patel MD [Primary Care Provider] - 5-7 Days Disposition Disposition: Home, Self Care
[2023-06-15 12:10] VITALS: O2SAT 95
[2023-06-15] MEDS: Aspirin 81 MG TAB.CHEW 324 MG PO (12:14)
--- NOTE | 2023-06-15 12:15 | ED.RN ---
CALL VANESSA, GRANDDAUGHTER [phone], ON DISPO. WILL TRANSPORT BACK TO [place] IF NEEDED
[2023-06-15] MEDS: Morphine 4 MG/ML Syringe IV (12:27)
[2023-06-15 12:42] LABS: Absolute Neutrophil Count 7.6 X10^3/uL (2.0-7.7); Basophil# 0.09 X10^3/uL; Basophil% 0.8 % (0-1); Eosinophil# 0.39 X10^3/uL; Eosinophils% 3.5 % (0-5); Hematocrit 34.5 % (40-54); Hemoglobin 10.9 g/dL (13.0-16.5); Lymphocyte % 11.5 % (19-41); Mean Corp Hgb Conc 31.6 g/dL (32-36); Mean Corpuscular Hgb 30.5 pg (27.0-32.0); Mean Corpuscular Volume 96.6 fL (80-94); Mean Platelet Vol. 10.5 fl (6.2-12.0); Monocyte# 1.83 X10^3/uL; Monocyte% 16.2 % (0-10); NRBC Flagged by Analyzer 0 % (0-5); Neutrophil # 7.61 X10^3/uL (2.7-7.7); Neutrophil % 67.4 % (47-70); POSITIVE DIFFERENTIAL YES; Platelet Count 119 K/mm3 (150-450); RBC Distribution Width CV 13.2 % (11.6-14.6); RBC Distribution Width SD 46.9 fl (35.1-43.9); Red Blood Count 3.57 M/mm3 (4.6-6.2); White Blood Count 11.3 K/mm3 (4.4-11.0)
--- NOTE | 2023-06-15 12:43 | RAD_ITS ---
STUDY: X-RAY CHEST REASON FOR EXAM: Male, 82 years old. Chest pain TECHNIQUE: Single AP portable view of the chest. COMPARISON: Comparison is made with prior study dated November 18, 2022. FINDINGS: A right-sided double-J catheter is in situ and the tip is at the junction of the superior vena cava and right atrium. The lungs are clear and expanded. There is no demonstrated pleural abnormality. Sternal cerclage wires and vascular clips are present from a prior sternotomy and coronary artery bypass graft procedure (CABG). Borderline cardiomegaly. A left-sided dual-chamber pacemaker is seen. Normal mediastinum and ceferino. Normal visualized pulmonary arteries. There is atherosclerotic calcification of the aortic arch with tortuosity. Normal visualized thoracic spine. There is degenerative osteoarthritis of the bilateral shoulders. There is no demonstrated abnormality of the visualized soft tissue structures of the upper abdomen. RAD/Chest 1 View (Portable) IMPRESSION: Borderline cardiomegaly. The lungs are clear. Electronically Signed: Gavin Salazar MD at 13:03 EDT ,
[2023-06-15 12:44] LABS: Differential Indicated SCAN CRITERIA MET
[2023-06-15 12:52] LABS: Uric Acid 2.8 mg/dL (3.5-7.2)
[2023-06-15 12:55] LABS: Anion Gap 5 (5-15); BUN 61 mg/dL (7-18); BUN/Creat Ratio 14.1 RATIO (10-20); Calcium,Total 9.3 mg/dL (8.5-10.1); Chloride 98 mmol/L (98-107); Creatinine, Serum 4.33 mg/dL (0.70-1.30); EST Glomerular Filtration Rate 14 mL/min (>60); Est Glom Filt Rate - Afr Amer 17 mL/min (>60); Estimated Creatinine Clearance 11.24 ml/min; Glucose 181 mg/dL (74-106); Potassium 4.3 mmol/L (3.5-5.1); Sodium Level 133 mmol/L (136-145); Troponin-I HS 78 pg/mL (3.0-78.0)
[2023-06-15 13:10] LABS: Differential Comment SCANNED
[2023-06-15 14:34] VITALS: BP 179/73; PULSE 60; RESP 14; O2SAT 99
--- NOTE | 2023-06-15 14:36 | ED.RN ---
SPOKE WITH PROVIDER REGARDING SHOULDER, NO X-RAY PER PROVIDER. PROVIDER STATES THAT IT IS MUSCLE SKELETAL RELATED.
[2023-06-16 13:06] LABS: Pathologist Review Reviewed
== END 2023-06-15 14:39 | disposition home or self-care (01) ==
PROVIDERS: Emergency Provider Emergency Medicine; PCP Family Medicine; Visit Provider Emergency Medicine
DX: M79.602 Pain in left arm (principal); J44.9 Chronic obstructive pulmonary disease, unspecified; I50.22 Chronic systolic (congestive) heart failure; I13.0 Hypertensive heart and chronic kidney disease with heart failure and stage 1 through stage 4 chronic kidney disease, or unspecified chronic kidney disease; E11.22 Type 2 diabetes mellitus with diabetic chronic kidney disease; N18.4 Chronic kidney disease, stage 4 (severe); I48.11 Longstanding persistent atrial fibrillation; Z79.4 Long term (current) use of insulin; R11.2 Nausea with vomiting, unspecified; I25.5 Ischemic cardiomyopathy; E78.5 Hyperlipidemia, unspecified; I25.10 Atherosclerotic heart disease of native coronary artery without angina pectoris; Z99.81 Dependence on supplemental oxygen; Z79.01 Long term (current) use of anticoagulants; Z79.82 Long term (current) use of aspirin; Z79.84 Long term (current) use of oral hypoglycemic drugs; Z79.899 Other long term (current) drug therapy
CPT/HCPCS: 71045; 80048; 84484; 84550; 85025; 93005; 96374; 99285; A4216

== ENCOUNTER 2023-06-17 11:26 | Inpatient (IN) | payer MEDICARE, MEDICAID, SELFPAY ==
[2023-06-17 11:29] VITALS: BP 156/65; PULSE 60; RESP 14; TEMP 36.2; O2SAT 97; BMI 33.0
--- NOTE | 2023-06-17 11:49 | RAD_ITS ---
STUDY: X-RAY - PELVIS AND RIGHT HIP REASON FOR EXAM: Male, 82 years old. Hip pain, deformity TECHNIQUE: 3 views of the pelvis and hip. COMPARISON: None. FINDINGS: There is a non-specific bowel gas pattern. Normal visualized soft tissue structures. There are multiple calcified phleboliths. Prior laminectomy and fusion of the lower lumbar spine. There is narrowing with cortical sclerosis and osteophyte formation of the sacroiliac joint consistent with degenerative osteoarthritic changes. Normal bilateral superior and inferior pubic rami. There is narrowing with sclerosis of the pubic symphysis. Normal bilateral ischial tuberosities. There is evidence of a comminuted intertrochanteric fracture of the proximal right femur. Marked degree of bilateral hip joint narrowing. RAD/HIP, UNI W/ Pelvis 2-3 Views IMPRESSION: Comminuted fracture of the right intertrochanteric region of the proximal right femur. Marked degree of joint space narrowing involving both hip joints. Electronically Signed: Gavin Salazar MD at 13:23 EDT ,
[2023-06-17] MEDS: Ondansetron 4 MG/2 ML Vial IV (11:53)
[2023-06-17] MEDS: Morphine 4 MG/ML Syringe IV ×3 (11:53→14:33)
--- NOTE | 2023-06-17 11:53 | EKG12_ITS ---
Test Reason : FALL Blood Pressure : / mmHG Vent. Rate : 060 BPM Atrial Rate : 058 BPM P-R Int : 000 ms QRS Dur : 224 ms QT Int : 576 ms P-R-T Axes : 000 255 102 degrees QTc Int : 576 ms Ventricular-paced rhythm Abnormal ECG Confirmed by JESSICA WEBB, MANA ([id number]), editorial assistant CHIQUITA HEWITT ([id number]) on 06/18/2023 9:58:16 AM Referred By: Confirmed By:MANA LOPEZ MD
--- NOTE | 2023-06-17 11:55 | EX.ED.DYSGE1 ---
HPI History of Present Illness Chief Complaint: Lower Extremity Injury [facility] Medical History LUCAS (acute kidney injury) Ambulates with cane Amiodarone pulmonary toxicity Anemia Arthritis Atherosclerosis of coronary artery without angina pectoris AV block, Mobitz II BPH (benign prostatic hyperplasia) COPD (chronic obstructive pulmonary disease) Diabetes mellitus, type II Dialysis complication Essential hypertension Fibromyalgia Gastric reflux Heart failure with reduced ejection fraction History of steroid therapy Hyperlipidemia Ischemic cardiomyopathy Longstanding persistent atrial fibrillation Loss of hearing Non-smoker Nonrheumatic aortic (valve) stenosis On home oxygen therapy Peritoneal dialysis catheter in place Prostate disease Pulmonary fibrosis Rheumatoid arthritis 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 Symptomatic bradycardia Tinea manus Tinea unguium Weakness Wears glasses Home Medications aspirin 81 mg chewable tablet 81 mg PO DAILY@0800 blood thinner 03/10/14 [History Last Taken 10/29/21] hydroxychloroquine 200 mg tablet 200 mg PO DAILY arthritis 09/26/20 [History Last Taken 11/18/22 08:00] SIMPHONI 1 dose IV BOLUS .QOMONTH ARTHRITIS 09/08/21 [History Last Taken 1 Month Ago ~08/09/21] acetaminophen 500 mg tablet 500 mg PO Q6H PRN PAIN 09/08/21 [History Last Taken 09/07/21] apixaban 2.5 mg tablet (Eliquis) 2.5 mg PO BID A fib 09/08/21 [History Last Taken 10/29/21] calcium carbonate 500 mg calcium (1,250 mg) tablet 500 mg PO DAILY SUPPLEMENT 09/08/21 [History Last Taken 11/04/21] mirtazapine 45 mg tablet 45 mg PO DAILY MOOD 09/08/21 [History Last Taken 11/04/21] ferrous sulfate 325 mg (65 mg iron) tablet 325 mg PO DAILY iron supplement 08/21/22 [History Last Taken 11/18/22 12:00] tamsulosin 0.4 mg capsule 0.4 mg PO DAILY prostate 08/21/22 [History Last Taken 11/17/22 21:00] isosorbide dinitrate 20 mg tablet 20 mg PO TID HEART #270 tabs 08/25/22 [Rx Last Taken 11/18/22 12:00] lorazepam 0.5 mg tablet 0.5 mg PO QHS anxiety 10/07/22 [History Last Taken Unknown] atorvastatin 40 mg tablet 40 mg PO QHS BP 11/19/22 [History Last Taken 11/17/22 21:00] carvedilol 12.5 mg tablet 12.5 mg PO BID BP 11/19/22 [History Last Taken 11/18/22 08:00] pantoprazole 40 mg tablet,delayed release 40 mg PO DAILY GERD 11/19/22 [History Last Taken Unknown] tramadol 50 mg tablet 50 mg PO TID PRN Pain 11/19/22 [History Last Taken Unknown] potassium chloride 20 mEq tablet,extended release 40 meq (2 x 20 mEq) PO DAILY diuretic 30 days #60 tabs 11/24/22 [Rx Last Taken Unknown] bumetanide 2 mg tablet 2 mg PO TID 12/25/22 [History Last Taken Unknown] hydrocodone-acetaminophen 5-325mg 5mg-325mg 1 tab PO Q6H PRN PRN Pain 3 days #10 TABLETS 06/15/23 [Rx Last Taken Unknown] Allergy/AdvReac Type Severity Reaction Status Date / Time amiodarone Allergy Mild PT UNSURE Verified 06/17/23 11:36 OF REACTION simvastatin Allergy Mild Other Verified 06/17/23 11:36 lovastatin [From Advicor] Allergy Unknown UNKNOWN Verified 06/17/23 11:36 niacin [From Advicor] Allergy Unknown UNKNOWN Verified 06/17/23 11:36 pravastatin [From Pravachol] Allergy Unknown UNKNOWN Verified 06/17/23 11:36 hydralazine Allergy PT UNSURE Verified 06/17/23 11:36 OF REACTION Influenza Virus Vaccines Allergy Hives Verified 06/17/23 11:36 Penicillins Allergy Rash Verified 06/17/23 11:36 rosuvastatin [From Crestor] Allergy PT UNSURE Verified 06/17/23 11:36 OF REACTION Family History Other CAD (coronary artery disease) Hypertension Seizures Surgical History H/O coronary artery bypass surgery (07/11/07) History of cholecystectomy (01/2021) History of coronary artery stent placement (05/28/17) History of left heart catheterization (05/06/10) History of lumbar fusion (02/2017) History of permanent cardiac pacemaker placement (07/19/18) History of radiofrequency ablation procedure for cardiac arrhythmia (08/25/13) History of right and left heart catheterization (05/28/17) Hx of appendectomy Hx of bilateral cataract extraction Social History current occupational status: retired Smoking Status: Never smoker alcohol intake: never substance use type: does not use EXAM Physical Exam Const Vital Signs: 06/17/23 11:29 Temperature 97.1 F L Temperature Source Temporal Pulse Rate 60 Respiratory Rate 14 Blood Pressure 156/65 H Blood Pressure Mean 95 Pulse Ox 97 Discharge Plan Triage Chief Complaint: Lower Extremity Injury ED Midlevel Provider: Liv Perez ED Provider: Manoj Robledo Dx/Rx/DC Orders Prescriptions: No Action tamsulosin 0.4 mg capsule 0.4 mg PO DAILY bumetanide 2 mg tablet 2 mg PO TID Rx Instructions: HOLD on dialysis days only aspirin 81 MG tablet,chewable 81 mg PO DAILY@0800 Hold Instructions: Resume on 11/19/21. Patient Comments: LAST DOSE 10/30/21 hydroxychloroquine 200 MG tablet 200 mg PO DAILY ferrous sulfate 325 mg (65 mg iron) tablet 325 mg PO DAILY lorazepam 0.5 mg Tablet 0.5 mg PO QHS mirtazapine 45 mg tablet 45 mg PO DAILY Patient Comments: Take 1 tablet by mouth at bedtime Eliquis 2.5 mg tablet 2.5 mg PO BID Hold Instructions: Resume on 11/19/21. Patient Comments: LAST DOSE 10/30/21 SIMPHONI 1 dose IV BOLUS .QOMONTH Hold Instructions: Resume on 11/19/21. acetaminophen 500 mg Tablet 500 mg PO Q6H PRN (Reason: PAIN) calcium carbonate 500 mg calcium (1,250 mg) Tablet 500 mg PO DAILY tramadol 50 mg Tablet 50 mg PO TID PRN (Reason: Pain) atorvastatin 40 MG tablet 40 mg PO QHS carvedilol 12.5 MG tablet 12.5 mg PO BID pantoprazole 40 MG tablet,delayed release (DR/EC) 40 mg PO DAILY potassium chloride 20 mEq tablet extended release 40 meq PO DAILY 30 Days Qty: 60 0RF hydrocodone-acetaminophen [hydrocodone-acetaminophen] 5-325 mg tablet 1 tab PO Q6H PRN PRN (Reason: Pain) 3 Days Qty: 10 0RF isosorbide dinitrate 20 mg tablet 20 mg PO TID Qty: 270 3RF Primary Care Provider: Bry Patel Referrals: Bry Patel MD [Primary Care Provider] -
--- NOTE | 2023-06-17 12:04 | EX.ED.DYSGE1 ---
HPI History of Present Illness Chief Complaint: Lower Extremity Injury Narrative Narrative: Patient presenting today with pain to his right hip after mechanical fall that occurred this morning. He reports that he was getting out of his recliner chair and trying to get into his wheelchair to go to dialysis but the wheelchair was not locked and spun. He was unable to grab it and fell onto his right hip. He still was able to go to dialysis but was in a lot of pain to his right hip. He did not hit his head and there was no loss of consciousness. Patient is on a blood thinner. PMH includes CKD, cardiomyopathy, CHF, A-fib, hypertension, diabetes mellitus. [facility] Medical History LUCAS (acute kidney injury) Ambulates with cane Amiodarone pulmonary toxicity Anemia Arthritis Atherosclerosis of coronary artery without angina pectoris AV block, Mobitz II BPH (benign prostatic hyperplasia) COPD (chronic obstructive pulmonary disease) Diabetes mellitus, type II Dialysis complication Essential hypertension Fibromyalgia Gastric reflux Heart failure with reduced ejection fraction History of steroid therapy Hyperlipidemia Ischemic cardiomyopathy Longstanding persistent atrial fibrillation Loss of hearing Non-smoker Nonrheumatic aortic (valve) stenosis On home oxygen therapy Peritoneal dialysis catheter in place Prostate disease Pulmonary fibrosis Rheumatoid arthritis 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 Symptomatic bradycardia Tinea manus Tinea unguium Weakness Wears glasses Home Medications aspirin 81 mg chewable tablet 81 mg PO DAILY@0800 blood thinner 03/10/14 [History Last Taken 10/29/21] hydroxychloroquine 200 mg tablet 200 mg PO DAILY arthritis 09/26/20 [History Last Taken 11/18/22 08:00] apixaban 2.5 mg tablet (Eliquis) 2.5 mg PO BID A fib 09/08/21 [History Last Taken 10/29/21] calcium carbonate 500 mg calcium (1,250 mg) tablet 500 mg PO DAILY SUPPLEMENT 09/08/21 [History Last Taken 11/04/21] mirtazapine 45 mg tablet 45 mg PO DAILY MOOD 09/08/21 [History Last Taken 11/04/21] ferrous sulfate 325 mg (65 mg iron) tablet 325 mg PO DAILY iron supplement 08/21/22 [History Last Taken 11/18/22 12:00] tamsulosin 0.4 mg capsule 0.4 mg PO DAILY prostate 08/21/22 [History Last Taken 11/17/22 21:00] isosorbide dinitrate 20 mg tablet 20 mg PO TID HEART #270 tabs 08/25/22 [Rx Last Taken 11/18/22 12:00] lorazepam 0.5 mg tablet 0.5 mg PO QHS anxiety 10/07/22 [History Last Taken Unknown] atorvastatin 40 mg tablet 40 mg PO QHS BP 11/19/22 [History Last Taken 11/17/22 21:00] carvedilol 12.5 mg tablet 12.5 mg PO BID BP 11/19/22 [History Last Taken 11/18/22 08:00] pantoprazole 40 mg tablet,delayed release 40 mg PO DAILY GERD 11/19/22 [History Last Taken Unknown] tramadol 50 mg tablet 50 mg PO Q12H PRN Pain 11/19/22 [History Last Taken Unknown] potassium chloride 20 mEq tablet,extended release 40 meq (2 x 20 mEq) PO DAILY diuretic 30 days #60 tabs 11/24/22 [Rx Last Taken Unknown] bumetanide 2 mg tablet 2 mg PO Q12H 12/25/22 [History Last Taken Unknown] acetaminophen 325 mg capsule 650 mg PO Q4H PRN fever or pain 06/17/23 [History Last Taken Unknown] acetaminophen 650 mg rectal suppository 650 mg AK Q4H PRN fever or pain 06/17/23 [History Last Taken Unknown] aluminum-magnesium hydroxide 225 mg-200 mg/5 mL oral suspension 30 ml PO Q4H PRN PRN GI DISTRESS 06/17/23 [History Last Taken Unknown] ascorbic acid (vitamin C) 500 mg capsule 500 mg PO DAILY 06/17/23 [History Last Taken Unknown] bisacodyl 10 mg rectal suppository 10 mg AK DAILY PRN constipation 06/17/23 [History Last Taken Unknown] calcitriol 0.25 mcg capsule 0.25 mcg PO DAILY 06/17/23 [History Last Taken Unknown] dextrose 40 % oral gel 15 g PO Q15M PRN hypoglycemia 06/17/23 [History Last Taken Unknown] glipizide 5 mg tablet 5 mg PO DAILY 06/17/23 [History Last Taken Unknown] glucagon HCl 1 mg solution for injection (Glucagon (HCl) Emergency Kit) 1 mg IM Q20M PRN hypoglycemia 06/17/23 [History Last Taken Unknown] guaifenesin 100 mg/5 mL oral liquid (Adult Tussin Chest Congestion) 200 mg PO Q4H PRN congestion 06/17/23 [History Last Taken Unknown] insulin lispro 100 unit/mL subcutaneous pen (Humalog KwikPen (U-100) Insulin) 5 unit subcut DAILY 06/17/23 [History Last Taken Unknown] loperamide 2 mg tablet 2 - 4 mg PO Q2H PRN loose stool 06/17/23 [History Last Taken Unknown] magnesium hydroxide 400 mg/5 mL oral suspension (Milk of Magnesia) 30 ml PO DAILY PRN constipation 06/17/23 [History Last Taken Unknown] psyllium husk 3.4 gram/5.4 gram oral powder (Shruti-Mucil) 1 tsp PO DAILY PRN CONSTIATION 06/17/23 [History Last Taken Unknown] sodium phosphates 19 gram-7 gram/118 mL enema (Enema) 118 ml AK DAILY PRN constipation 06/17/23 [History Last Taken Unknown] torsemide 20 mg tablet 20 mg PO DAILY 06/17/23 [History Last Taken Unknown] Allergy/AdvReac Type Severity Reaction Status Date / Time amiodarone Allergy Mild PT UNSURE Verified 06/17/23 11:36 OF REACTION simvastatin Allergy Mild Other Verified 06/17/23 11:36 lovastatin [From Advicor] Allergy Unknown UNKNOWN Verified 06/17/23 11:36 niacin [From Advicor] Allergy Unknown UNKNOWN Verified 06/17/23 11:36 pravastatin [From Pravachol] Allergy Unknown UNKNOWN Verified 06/17/23 11:36 hydralazine Allergy PT UNSURE Verified 06/17/23 11:36 OF REACTION Influenza Virus Vaccines Allergy Hives Verified 06/17/23 11:36 Penicillins Allergy Rash Verified 06/17/23 11:36 rosuvastatin [From Crestor] Allergy PT UNSURE Verified 06/17/23 11:36 OF REACTION Family History (Reviewed 12/25/22 @ 10:42 by José Antonio Hicks STRUCTURAL BIOLOGIST, STRUCTURAL BIOLOGIST-C) Other CAD (coronary artery disease) Hypertension Seizures Surgical History H/O coronary artery bypass surgery (07/11/07) History of cholecystectomy (01/2021) History of coronary artery stent placement (05/28/17) History of left heart catheterization (05/06/10) History of lumbar fusion (02/2017) History of permanent cardiac pacemaker placement (07/19/18) History of radiofrequency ablation procedure for cardiac arrhythmia (08/25/13) History of right and left heart catheterization (05/28/17) Hx of appendectomy Hx of bilateral cataract extraction Social History current occupational status: retired Smoking Status: Never smoker alcohol intake: never substance use type: does not use ROS ROS ED Constitutional Constitutional ED: Denies chills or fever(s) Eyes Eyes: Denies change in vision Cardiovascular Cardiovascular: Denies chest pain or palpitations Respiratory/Chest Respiratory/Chest: Denies cough or dyspnea Gastrointestinal Gastrointestinal: Denies abdominal pain, nausea or vomiting Genitourinary Genitourinary ED: Denies dysuria, hematuria or urinary urgency Musculoskeletal Musculoskeletal: Reports arthralgias; Denies back pain or neck pain Integumentary Denies abscess, Abrasions or rash Neurologic Neurologic: Denies dizziness, paresthesias or weakness EXAM Physical Exam Const Vital Signs: 06/17/23 11:29 Temperature 97.1 F L Temperature Source Temporal Pulse Rate 60 Respiratory Rate 14 Blood Pressure 156/65 H Blood Pressure Mean 95 Pulse Ox 97 Positive well nourished, well developed and no apparent distress General Appearance ED: well developed HEENT Reports normocephalic and head/scalp atraumatic Mouth ED: Yes moist mucous membranes normal Eyes PERRL and EOMs intact bilaterally Neck full ROM and supple Chest Wall inspection of chest normal Resp normal respiratory effort and clear to auscultation bilaterally Cardio regular rate and regular rhythm GI soft to palpation, non-tender, non-distended and no masses Back/Spine normal ROM and normal to inspection Extremity Extremity Narrative: Right hip is externally rotated and right leg is shortened in comparison to the left. Pain to palpation to the greater trochanter on the right side, positive logroll on the right side. Patient is able to wiggle his toes, DP pulses 2+ and equal bilaterally, good capillary refill, sensation intact. Neuro oriented x3, CN's II-XII intact bilaterally, moves all extremities, no focal motor deficits and no sensory deficits noted Sensorium / Orientation: awake and alert Psych mental status grossly normal and thought process normal Skin no rashes or lesions noted and no wounds MDM MDM Lab Data Labs: Laboratory Results - last 24 hr 06/17/23 12:00 WBC 13.6 H RBC 3.09 L Hgb 9.7 L Hct 30.1 L MCV 97.4 H MCH 31.4 MCHC 32.2 RDW Std Deviation 47.0 H RDW Coeff of Saloni 13.2 Plt Count 126 L MPV 10.5 Immature Gran % (Auto) 1.000 H Neut % (Auto) 77.3 H Lymph % (Auto) 7.5 L [place] % (Auto) 11.3 H Eos % (Auto) 2.4 Baso % (Auto) 0.5 Absolute Neuts (auto) 10.6 H Absolute Lymphs (auto) 1.02 Nucleated RBC % 0 Differential Comment COMMENT Diff Path Review May foll Sodium 138 Potassium 4.3 Chloride 100 Carbon Dioxide 27.0 Anion Gap 11 BUN 72 H Creatinine 4.90 H Estim Creat Clear Calc 9.94 Est GFR (MDRD) Af Amer 15 L Est GFR (MDRD) Non-Af 12 L BUN/Creatinine Ratio 14.7 Glucose 162 H Calcium 9.0 EKG Initial EKG: Comments: 60 bpm, ventricular paced rhythm, no ST elevation, reviewed and interpreted by attending ED physician Discharge Plan Triage Chief Complaint: Lower Extremity Injury ED Midlevel Provider: Liv Perez ED Provider: Manoj Robledo Dx/Rx/DC Orders Prescriptions: No Action tamsulosin 0.4 mg capsule 0.4 mg PO DAILY bumetanide 2 mg tablet 2 mg PO Q12H Rx Instructions: HOLD on dialysis days only aspirin 81 MG tablet,chewable 81 mg PO DAILY@0800 Hold Instructions: Resume on 11/19/21. Patient Comments: LAST DOSE 10/30/21 hydroxychloroquine 200 MG tablet 200 mg PO DAILY ferrous sulfate 325 mg (65 mg iron) tablet 325 mg PO DAILY lorazepam 0.5 mg Tablet 0.5 mg PO QHS mirtazapine 45 mg tablet 45 mg PO DAILY Patient Comments: Take 1 tablet by mouth at bedtime Eliquis 2.5 mg tablet 2.5 mg PO BID Hold Instructions: Resume on 11/19/21. Patient Comments: LAST DOSE 10/30/21 calcium carbonate 500 mg calcium (1,250 mg) Tablet 500 mg PO DAILY tramadol 50 mg Tablet 50 mg PO Q12H PRN (Reason: Pain) atorvastatin 40 MG tablet 40 mg PO QHS carvedilol 12.5 MG tablet 12.5 mg PO BID pantoprazole 40 MG tablet,delayed release (DR/EC) 40 mg PO DAILY potassium chloride 20 mEq tablet extended release 40 meq PO DAILY 30 Days Qty: 60 0RF acetaminophen 650 mg suppository 650 mg AK Q4H PRN (Reason: fever or pain) acetaminophen 325 mg capsule 650 mg PO Q4H PRN (Reason: fever or pain) aluminum-magnesium hydroxide 225-200 mg/5 mL suspension 30 ml PO Q4H PRN PRN (Reason: GI DISTRESS) bisacodyl 10 mg suppository 10 mg AK DAILY PRN (Reason: constipation) calcitriol 0.25 mcg capsule 0.25 mcg PO DAILY Enema 19-7 gram/118 mL enema 118 ml AK DAILY PRN (Reason: constipation) glipizide 5 mg tablet 5 mg PO DAILY glucagon HCl [Glucagon (HCl) Emergency Kit] 1 mg recon soln 1 mg IM Q20M PRN (Reason: hypoglycemia) Rx Instructions: until target blood sugar attained dextrose 40 % gel 15 g PO Q15M PRN (Reason: hypoglycemia) Rx Instructions: until symptoms of low blood sugar are controlled guaifenesin [Adult Tussin Chest Congestion] 100 mg/5 mL liquid 200 mg PO Q4H PRN (Reason: congestion) insulin lispro [Humalog KwikPen Insulin] 100 unit/mL insulin pen 5 unit subcut DAILY loperamide 2 mg tablet 2 - 4 mg PO Q2H PRN (Reason: loose stool) Rx Instructions: NO MORE THAN 4 TABS IN 24 HOURS magnesium hydroxide [Milk of Magnesia] 400 mg/5 mL suspension 30 ml PO DAILY PRN (Reason: constipation) Shruti-Mucil 3.4 gram/5.4 gram powder 1 tsp PO DAILY PRN (Reason: CONSTIATION) Rx Instructions: mix into at least 4 oz water or juice before administering torsemide 20 mg tablet 20 mg PO DAILY ascorbic acid (vitamin C) 500 mg capsule 500 mg PO DAILY isosorbide dinitrate 20 mg tablet 20 mg PO TID Qty: 270 3RF Primary Care Provider: Bry Patel Referrals: Bry Patel MD [Primary Care Provider] -
[2023-06-17 12:15] LABS: Absolute Lymphocyte Count 1.02 X10^3/uL (0.83-4.51); Absolute Neutrophil Count 10.6 X10^3/uL (2.0-7.7); Basophil# 0.07 X10^3/uL; Basophil% 0.5 % (0-1); Eosinophil# 0.33 X10^3/uL; Eosinophils% 2.4 % (0-5); Hematocrit 30.1 % (40-54); Hemoglobin 9.7 g/dL (13.0-16.5); Lymphocyte # 1.02 X10^3/ul (0.83-4.51); Lymphocyte % 7.5 % (19-41); Mean Corp Hgb Conc 32.2 g/dL (32-36); Mean Corpuscular Hgb 31.4 pg (27.0-32.0); Mean Corpuscular Volume 97.4 fL (80-94); Mean Platelet Vol. 10.5 fl (6.2-12.0); Monocyte# 1.54 X10^3/uL; Monocyte% 11.3 % (0-10); NRBC Flagged by Analyzer 0 % (0-5); Neutrophil # 10.55 X10^3/uL (2.7-7.7); Neutrophil % 77.3 % (47-70); POSITIVE DIFFERENTIAL YES; Platelet Count 126 K/mm3 (150-450); RBC Distribution Width CV 13.2 % (11.6-14.6); Red Blood Count 3.09 M/mm3 (4.6-6.2); White Blood Count 13.6 K/mm3 (4.4-11.0)
[2023-06-17 12:18] LABS: Differential Indicated SCAN CRITERIA MET
[2023-06-17 12:31] LABS: Anion Gap 11 (5-15); BUN 72 mg/dL (7-18); BUN/Creat Ratio 14.7 RATIO (10-20); Chloride 100 mmol/L (98-107); EST Glomerular Filtration Rate 12 mL/min (>60); Est Glom Filt Rate - Afr Amer 15 mL/min (>60); Estimated Creatinine Clearance 9.94 ml/min; Glucose 162 mg/dL (74-106); Potassium 4.3 mmol/L (3.5-5.1); Sodium Level 138 mmol/L (136-145)
--- NOTE | 2023-06-17 12:55 | RAD_ITS ---
STUDY: X-RAY CHEST REASON FOR EXAM: Male, 82 years old. Pre-op TECHNIQUE: Single AP portable view of the chest. COMPARISON: Comparison is made with prior study dated June 15, 2023. FINDINGS: A right-sided double lumen catheter is seen with the tip at the junction of the superior vena cava and right atrium. EKG electrodes are seen. A left-sided dual-chamber pacemaker is present. The lungs are clear and expanded. Scattered calcified granulomas. There is no demonstrated pleural abnormality. Sternal cerclage wires and vascular clips are present from a prior sternotomy and coronary artery bypass graft procedure (CABG). Mild cardiomegaly. Normal mediastinum and ceferino. Normal visualized pulmonary arteries. There is atherosclerotic calcification of the aortic arch with tortuosity. There are diffuse degenerative changes of the visualized thoracic spine. There is degenerative osteoarthritis of the bilateral shoulders. There is no demonstrated abnormality of the visualized soft tissue structures of the upper abdomen. RAD/Chest 1 View (Portable) IMPRESSION: Cardiac megaly. The lungs are clear. Electronically Signed: Gavin Salazar MD at 13:20 EDT ,
--- NOTE | 2023-06-17 13:27 | CM.ED ---
Social Work SW performed chart review, patient has HCPOA and LW documents on file as of 2016 with a new HCPOA document added in 2022. Patient's 2022 HCPOA document identified Leela Mccarthy as HCPOA and Jose Mendieta is the alternate. Trisha Swartz [employer], [employer]
--- NOTE | 2023-06-17 13:34 | HP.PCM.HOS_ITS ---
HPI - General General Date of Admission: 06/17/23 Date of Service: 06/17/23 Chief Complaint: Fall and then right hip fracture. Also low BP HPI Narrative JUVENTINO CERNA, is a 82 M who who is his medical [facility] residential resident was brought to ED after he fell down on the right hip trying to transfer out of the recliner chair to the wheelchair to go to dialysis but the wheelchair was not long time span. He will also not able to grab as his left upper extremity is a spontaneously inflamed and mildly painful for last 2 weeks. Complain of severe pain 10 out of 10 over right hip mainly over right lateral and posterior aspect/gluteal region. He did not hit his head or loss of consciousness. Patient is on Eliquis 2.5 mg twice daily for chronic A-fib. As per EMS his blood pressure was 175/82, respiratory rate 18 heart rate 62 about 1114 hrs. but when I saw the patient about 1:40 PM his blood pressure was low in high 90s and then systolic 107 VIG. 500 mL Ringer lactate ordered. Patient has dialysis today. Hip x-ray shows right hip intertrochanteric fracture and orthopedic surgeon Dr. Charles Rollins consulted. 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 Patient is further admitted. [facility]LY [facility] Medical History LUCAS (acute kidney injury) Ambulates with cane Amiodarone pulmonary toxicity Anemia Arthritis Atherosclerosis of coronary artery without angina pectoris AV block, Mobitz II BPH (benign prostatic hyperplasia) COPD (chronic obstructive pulmonary disease) Diabetes mellitus, type II Dialysis complication Essential hypertension Fibromyalgia Gastric reflux Heart failure with reduced ejection fraction History of steroid therapy Hyperlipidemia Ischemic cardiomyopathy Longstanding persistent atrial fibrillation Loss of hearing Non-smoker Nonrheumatic aortic (valve) stenosis On home oxygen therapy Peritoneal dialysis catheter in place Prostate disease Pulmonary fibrosis Rheumatoid arthritis 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 Symptomatic bradycardia Tinea manus Tinea unguium Weakness Wears glasses Home Medications aspirin 81 mg chewable tablet 81 mg PO DAILY@0800 blood thinner 03/10/14 [History Last Taken 10/29/21] hydroxychloroquine 200 mg tablet 200 mg PO DAILY arthritis 09/26/20 [History Last Taken 11/18/22 08:00] apixaban 2.5 mg tablet (Eliquis) 2.5 mg PO BID A fib 09/08/21 [History Last Taken 10/29/21] calcium carbonate 500 mg calcium (1,250 mg) tablet 500 mg PO DAILY SUPPLEMENT 09/08/21 [History Last Taken 11/04/21] mirtazapine 45 mg tablet 45 mg PO DAILY MOOD 09/08/21 [History Last Taken 11/04/21] ferrous sulfate 325 mg (65 mg iron) tablet 325 mg PO DAILY iron supplement 08/21/22 [History Last Taken 11/18/22 12:00] tamsulosin 0.4 mg capsule 0.4 mg PO DAILY prostate 08/21/22 [History Last Taken 11/17/22 21:00] isosorbide dinitrate 20 mg tablet 20 mg PO TID HEART #270 tabs 08/25/22 [Rx Last Taken 11/18/22 12:00] lorazepam 0.5 mg tablet 0.5 mg PO QHS anxiety 10/07/22 [History Last Taken Unknown] atorvastatin 40 mg tablet 40 mg PO QHS BP 11/19/22 [History Last Taken 11/17/22 21:00] carvedilol 12.5 mg tablet 12.5 mg PO BID BP 11/19/22 [History Last Taken 11/18/22 08:00] pantoprazole 40 mg tablet,delayed release 40 mg PO DAILY GERD 11/19/22 [History Last Taken Unknown] tramadol 50 mg tablet 50 mg PO Q12H PRN Pain 11/19/22 [History Last Taken Unknown] potassium chloride 20 mEq tablet,extended release 40 meq (2 x 20 mEq) PO DAILY diuretic 30 days #60 tabs 11/24/22 [Rx Last Taken Unknown] bumetanide 2 mg tablet 2 mg PO Q12H 12/25/22 [History Last Taken Unknown] acetaminophen 325 mg capsule 650 mg PO Q4H PRN fever or pain 06/17/23 [History Last Taken Unknown] acetaminophen 650 mg rectal suppository 650 mg MT Q4H PRN fever or pain 06/17/23 [History Last Taken Unknown] aluminum-magnesium hydroxide 225 mg-200 mg/5 mL oral suspension 30 ml PO Q4H PRN PRN GI DISTRESS 06/17/23 [History Last Taken Unknown] ascorbic acid (vitamin C) 500 mg capsule 500 mg PO DAILY 06/17/23 [History Last Taken Unknown] bisacodyl 10 mg rectal suppository 10 mg MT DAILY PRN constipation 06/17/23 [History Last Taken Unknown] calcitriol 0.25 mcg capsule 0.25 mcg PO DAILY 06/17/23 [History Last Taken Unknown] dextrose 40 % oral gel 15 g PO Q15M PRN hypoglycemia 06/17/23 [History Last Taken Unknown] glipizide 5 mg tablet 5 mg PO DAILY 06/17/23 [History Last Taken Unknown] glucagon HCl 1 mg solution for injection (Glucagon (HCl) Emergency Kit) 1 mg IM Q20M PRN hypoglycemia 06/17/23 [History Last Taken Unknown] guaifenesin 100 mg/5 mL oral liquid (Adult Tussin Chest Congestion) 200 mg PO Q4H PRN congestion 06/17/23 [History Last Taken Unknown] insulin lispro 100 unit/mL subcutaneous pen (Humalog KwikPen (U-100) Insulin) 5 unit subcut DAILY 06/17/23 [History Last Taken Unknown] loperamide 2 mg tablet 2 - 4 mg PO Q2H PRN loose stool 06/17/23 [History Last Taken Unknown] magnesium hydroxide 400 mg/5 mL oral suspension (Milk of Magnesia) 30 ml PO DAILY PRN constipation 06/17/23 [History Last Taken Unknown] psyllium husk 3.4 gram/5.4 gram oral powder (Shruti-Mucil) 1 tsp PO DAILY PRN CONSTIATION 06/17/23 [History Last Taken Unknown] sodium phosphates 19 gram-7 gram/118 mL enema (Enema) 118 ml MT DAILY PRN constipation 06/17/23 [History Last Taken Unknown] torsemide 20 mg tablet 20 mg PO DAILY 06/17/23 [History Last Taken Unknown] Allergy/AdvReac Type Severity Reaction Status Date / Time amiodarone Allergy Mild PT UNSURE Verified 06/17/23 11:36 OF REACTION simvastatin Allergy Mild Other Verified 06/17/23 11:36 lovastatin [From Advicor] Allergy Unknown UNKNOWN Verified 06/17/23 11:36 niacin [From Advicor] Allergy Unknown UNKNOWN Verified 06/17/23 11:36 pravastatin [From Pravachol] Allergy Unknown UNKNOWN Verified 06/17/23 11:36 hydralazine Allergy PT UNSURE Verified 06/17/23 11:36 OF REACTION Influenza Virus Vaccines Allergy Hives Verified 06/17/23 11:36 Penicillins Allergy Rash Verified 06/17/23 11:36 rosuvastatin [From Crestor] Allergy PT UNSURE Verified 06/17/23 11:36 OF REACTION Family History Other CAD (coronary artery disease) Hypertension Seizures Surgical History H/O coronary artery bypass surgery (07/11/07) History of cholecystectomy (01/2021) History of coronary artery stent placement (05/28/17) History of left heart catheterization (05/06/10) History of lumbar fusion (02/2017) History of permanent cardiac pacemaker placement (07/19/18) History of radiofrequency ablation procedure for cardiac arrhythmia (08/25/13) History of right and left heart catheterization (05/28/17) Hx of appendectomy Hx of bilateral cataract extraction Social History current occupational status: retired Smoking Status: Never smoker alcohol intake: never substance use type: does not use ROS ROS Narrative Constitutional: Reports fatigue and weakness. No fever. HEENT: Reports systems reviewed and no addt'l complaints, except as documented Respiratory/Chest: No acute shortness of breath or respiratory distress or wheezing. Denies a smoking history. CVS: Open heart surgery for single-vessel bypass and cardiac stent. Has pacemaker. History of arrhythmia and coronary artery disease Gastrointestinal: Denies coffee ground emesis, hematemesis or vomiting Genitourinary: Denies burning urination or new urinary tract symptoms Musculoskeletal: Denies acute joint pain or limited range of motion. No acute injury Neurologic: Denies seizure-like symptoms. No acute strokelike symptoms. Psychiatric: Patient has mild dementia and does not remember chronological order or mainly events of his past medical history. skin: No ulcer. No rash Endocrinology: Reports systems reviewed and no addt'l complaints, except as documented Hematologic/Lymphatic: Reports systems reviewed and no addt'l complaints, except as documented Rest 14 ROS are negative except as mentioned in HPI Vital Signs Vital Signs Vital Signs: 06/17/23 11:29 Temperature 97.1 F L Temperature Source Temporal Pulse Rate 60 Respiratory Rate 14 Blood Pressure 156/65 H Blood Pressure Mean 95 Pulse Ox 97 Weight Weight: 198 lb 12.8 oz Body Mass Index (BMI) 33.0 Physical Exam Narrative General: Alert, Oriented x3, Cooperative, BMI 33.1 kg/m? HEENT: Atraumatic, PERRLA, EOMI, Normocephalic Oral: Oral mucosa dry. No Gingival or Mucosal Lesions/ Ulcerations Neck: Supple, No JVD, Negative Carotid Bruits Lungs: Air entry diminished in bilateral lung bases. No crepitation/rhonchi Cardiovascular: Rhythm, Normal S1, Normal S2, systolic murmur over LLSB. Abdomen: Bowel Sounds Present, Soft, Non Tender, Non-Distended : No renal angle tenderness. No suprapubic tenderness. Extremities: No edema, Capillary Refill Less than 3 Seconds Skin: No rashes, No breakdown Musculoskeletal: Tenderness and swelling over right groin and greater trochanter region. Very tender. Right lower extremity flexed, externally rotated and abducted. ROM not attempted. Neurological: Cranial nerves II-XII grossly intact, DTR 2+/4. No acute focal neurological deficit. Psych/Mental Status: Flat affect, mild dementia in pain Results Lab / Micro Data 06/17/23 12:00 06/17/23 12:00 Labs: Laboratory Results - last 24 hr 06/17/23 12:00: WBC 13.6 H, RBC 3.09 L, Hgb 9.7 L, Hct 30.1 L, MCV 97.4 H, MCH 31.4, MCHC 32.2, RDW Std Deviation 47.0 H, RDW Coeff of Saloni 13.2, Plt Count 126 L, MPV 10.5, Immature Gran % (Auto) 1.000 H, Neut % (Auto) 77.3 H, Lymph % (Auto) 7.5 L, [place] % (Auto) 11.3 H, Eos % (Auto) 2.4, Baso % (Auto) 0.5, Absolute Neuts (auto) 10.6 H, Absolute Lymphs (auto) 1.02, Nucleated RBC % 0, Differential Comment COMMENT, Diff Path Review May foll, Sodium 138, Potassium 4.3, Chloride 100, Carbon Dioxide 27.0, Anion Gap 11, BUN 72 H, Creatinine 4.90 H, Estim Creat Clear Calc 9.94, Est GFR (MDRD) Af Amer 15 L, Est GFR (MDRD) Non- Af 12 L, BUN/Creatinine Ratio 14.7, Glucose 162 H, Calcium 9.0, Blood Type A POSITIVE, Antibody Screen NEGATIVE Radiology Impression Hip/Pelvis X-Ray 06/17/23 11:49 IMPRESSION: Comminuted fracture of the right intertrochanteric region of the proximal right femur. Marked degree of joint space narrowing involving both hip joints. Electronically Signed: Gavin Salazar MD at 13:23 EDT , Chest X-Ray 06/17/23 12:55 IMPRESSION: Cardiac megaly. The lungs are clear. Electronically Signed: Gavin Salazar MD at 13:20 EDT , Assessment & Plan Assessment/Plan (1) Closed right hip fracture: QUALIFIERS: Encounter type: initial encounter Qualified Code(s): S72.001A - Fracture of unspecified part of neck of right femur, initial encounter for closed fracture PLAN: Plan This 82-year-old gentleman admitted admitted after fall resulting into right hip fracture. 1. Acute debility due to right hip intertrochanteric commuted fracture of the proximal right femur with mild degree of bilateral hip joint narrowing sug gestive of advanced primary osteoarthritis: Patient is being admitted in PCU. Patient has limited mobility with mobility mainly on wheelchair, residential resident. Hip x-ray individually reviewed and shows comminuted fracture with cephalic migration of distal fracture segment. Chest x-ray newly reviewed shows lungs are clear with pacemaker left subclavicular region. Perioperative risk evaluation done. I think patient exercise capacity is less than 4 MET. It shows serious complication and complication, pneumonia, cardiac complication, surgical site infection and DVT above average. Readmission, return to the OR risk is also high. Orthopedic surgery is consulted. 2. Transient low blood pressure: H&H ordered stat. 500 Ringer lactate ordered. Patient is high risk of bleeding from right hip fracture because of comminuted fracture and being on Eliquis. 3. Cardiac disease: Coronary artery disease status post one-vessel CABG, cardiac stent many years ago, chronic A-fib status post radiofrequency ablation and pacemaker, RVOT, chronic systolic and diastolic heart failure and hype rtension: Last echo in August 2022, reported EF 40% stage III?dysfunction with mild to moderate global hypokinesis. Mild eccentric MR mild TR, PASP 56 mmHg. Mild AI, mild PI. Normal aortic root. Last pharmacological myocardial nuclear stress test in August 2022 reported normal. The patient is on carvedilol, isosorbide dinitrate, bumetanide 2 mg twice daily, atorvastatin 40 mg. Because low BP, will start carvedilol and bumetanide from tomorrow AM. Consult cardiology for perioperative evaluation Patient was last admitted in November 2022 for acute on chronic combined heart failure 4. Chronic kidney disease stage V/ESRD most likely due to hypertensive nephropathy patient on hemodialysis. [employer] Administrator Dr. Morris is consulted. Patient still makes some urine. Has not urinated after fall and fracture 5. Dyslipidemia ? Patient is on atorvastatin, continue 6. Rheumatoid arthritis ? Patient is stable on Plaquenil did continue home dose 7. BPH ? Symptoms controlled on finasteride and tamsulosin did continue with home dose with no adjustment made 8. GERD ? On PPI 9. Anemia of chronic disease due to CKD/GERD: Hemoglobin 9.7. Platelet count 226,000. Repeat H&H ordered. 10, low physical capacity/physical deconditioning: PT and OT ordered. VTE prophylaxis: Patient on Eliquis and will hold it. Living will/advanced directive/end of life care: Patient does have living will or advanced directive. Patient has POA listed as this is Leela Mccarthy, granddaughter.. After discussion of benefits/risks procedures involved with full code, DNR CC arrest and DNR CC, the patient opted for DNRCC arrest with no compression Patient doesn't want artificial life support including intubation, tube feed, ventilator and/chest compression, central venous catheter, vasopressor and DC shock if needed Total time spent in [id number] encounter in discussion of advanced direct faheem 17 minutes. Laboratory Results 06/17/23 12:00: WBC 13.6 H, RBC 3.09 L, Hgb 9.7 L, Hct 30.1 L, MCV 97.4 H, MCH 31.4, MCHC 32.2, RDW Std Deviation 47.0 H, RDW Coeff of Saloni 13.2, Plt Count 126 L, MPV 10.5, Immature Gran % (Auto) 1.000 H, Neut % (Auto) 77.3 H, Lymph % (Auto) 7.5 L, [place] % (Auto) 11.3 H, Eos % (Auto) 2.4, Baso % (Auto) 0.5, Absolute Neuts (auto) 10.6 H, Absolute Lymphs (auto) 1.02, Nucleated RBC % 0, Differential Comment COMMENT, Diff Path Review March, Sodium 138, Potassium 4.3, Chloride 100, Carbon Dioxide 27.0, Anion Gap 11, BUN 72 H, Creatinine 4.90 H, Estim Creat Clear Calc 9.94, Est GFR (MDRD) Af Amer 15 L, Est GFR (MDRD) Non-Af 12 L, BUN/Creatinine Ratio 14.7, Glucose 162 H, Calcium 9.0, Blood Type A POSITIVE, Antibody Screen NEGATIVE Clinical Impression(s) from Imaging Studies Hip/Pelvis X-Ray 06/17/23 11:49 IMPRESSION: Comminuted fracture of the right intertrochanteric region of the proximal right femur. Marked degree of joint space narrowing involving both hip joints. Chest X-Ray 06/17/23 12:55 IMPRESSION: Cardiac megaly. The lungs are clear. Charges/Coding Visit Charges Inpatient E&M: 38078 Init Hosp L3 Procedures Hospitalists Procedures: 57223 Advncd Care Plan 30 Min
[2023-06-17 14:00] VITALS: BP 107/41; PULSE 60; RESP 18; O2SAT 96
[2023-06-17 14:26] LABS: Phosphorus 3.4 mg/dL (2.5-4.9)
[2023-06-17 14:33] VITALS: BP 107/41; PULSE 60; RESP 18; TEMP 36.4; O2SAT 95
--- NOTE | 2023-06-17 14:33 | ED.RN ---
Blood drawn and sent to lab
--- NOTE | 2023-06-17 14:35 | EX.ED.DYSGE1 ---
HPI History of Present Illness Chief Complaint: Lower Extremity Injury Narrative Narrative: Patient presenting today with pain to his right hip after mechanical fall that occurred this morning. He reports that he was try to get out of his recliner chair and into his wheelchair so that he could go to dialysis but his wheelchair was not locked and it spun around when he tried to grab it causing him to fall onto his right side. He reports he was still able to go to dialysis. He did not hit his head and there was no loss of consciousness. He denies any other injury. He does take a blood thinner for A-fib. He has a PMH of atrial fibrillation, CKD, hyperlipidemia, hypertension, diabetes mellitus, cardiomyopathy, coronary artery disease with stent placement, pacemaker placement, and CHF. [facility] Medical History LUCAS (acute kidney injury) Ambulates with cane Amiodarone pulmonary toxicity Anemia Arthritis Atherosclerosis of coronary artery without angina pectoris AV block, Mobitz II BPH (benign prostatic hyperplasia) COPD (chronic obstructive pulmonary disease) Diabetes mellitus, type II Dialysis complication Essential hypertension Fibromyalgia Gastric reflux Heart failure with reduced ejection fraction History of steroid therapy Hyperlipidemia Ischemic cardiomyopathy Longstanding persistent atrial fibrillation Loss of hearing Non-smoker Nonrheumatic aortic (valve) stenosis On home oxygen therapy Peritoneal dialysis catheter in place Prostate disease Pulmonary fibrosis Rheumatoid arthritis 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 Symptomatic bradycardia Tinea manus Tinea unguium Weakness Wears glasses Home Medications aspirin 81 mg chewable tablet 81 mg PO DAILY@0800 blood thinner 03/10/14 [History Last Taken 10/29/21] hydroxychloroquine 200 mg tablet 200 mg PO DAILY arthritis 09/26/20 [History Last Taken 11/18/22 08:00] apixaban 2.5 mg tablet (Eliquis) 2.5 mg PO BID A fib 09/08/21 [History Last Taken 10/29/21] calcium carbonate 500 mg calcium (1,250 mg) tablet 500 mg PO DAILY SUPPLEMENT 09/08/21 [History Last Taken 11/04/21] mirtazapine 45 mg tablet 45 mg PO DAILY MOOD 09/08/21 [History Last Taken 11/04/21] ferrous sulfate 325 mg (65 mg iron) tablet 325 mg PO DAILY iron supplement 08/21/22 [History Last Taken 11/18/22 12:00] tamsulosin 0.4 mg capsule 0.4 mg PO DAILY prostate 08/21/22 [History Last Taken 11/17/22 21:00] isosorbide dinitrate 20 mg tablet 20 mg PO TID HEART #270 tabs 08/25/22 [Rx Last Taken 11/18/22 12:00] lorazepam 0.5 mg tablet 0.5 mg PO QHS anxiety 10/07/22 [History Last Taken Unknown] atorvastatin 40 mg tablet 40 mg PO QHS BP 11/19/22 [History Last Taken 11/17/22 21:00] carvedilol 12.5 mg tablet 12.5 mg PO BID BP 11/19/22 [History Last Taken 11/18/22 08:00] pantoprazole 40 mg tablet,delayed release 40 mg PO DAILY GERD 11/19/22 [History Last Taken Unknown] tramadol 50 mg tablet 50 mg PO Q12H PRN Pain 11/19/22 [History Last Taken Unknown] potassium chloride 20 mEq tablet,extended release 40 meq (2 x 20 mEq) PO DAILY diuretic 30 days #60 tabs 11/24/22 [Rx Last Taken Unknown] bumetanide 2 mg tablet 2 mg PO Q12H 12/25/22 [History Last Taken Unknown] acetaminophen 325 mg capsule 650 mg PO Q4H PRN fever or pain 06/17/23 [History Last Taken Unknown] acetaminophen 650 mg rectal suppository 650 mg CA Q4H PRN fever or pain 06/17/23 [History Last Taken Unknown] aluminum-magnesium hydroxide 225 mg-200 mg/5 mL oral suspension 30 ml PO Q4H PRN PRN GI DISTRESS 06/17/23 [History Last Taken Unknown] ascorbic acid (vitamin C) 500 mg capsule 500 mg PO DAILY 06/17/23 [History Last Taken Unknown] bisacodyl 10 mg rectal suppository 10 mg CA DAILY PRN constipation 06/17/23 [History Last Taken Unknown] calcitriol 0.25 mcg capsule 0.25 mcg PO DAILY 06/17/23 [History Last Taken Unknown] dextrose 40 % oral gel 15 g PO Q15M PRN hypoglycemia 06/17/23 [History Last Taken Unknown] glipizide 5 mg tablet 5 mg PO DAILY 06/17/23 [History Last Taken Unknown] glucagon HCl 1 mg solution for injection (Glucagon (HCl) Emergency Kit) 1 mg IM Q20M PRN hypoglycemia 06/17/23 [History Last Taken Unknown] guaifenesin 100 mg/5 mL oral liquid (Adult Tussin Chest Congestion) 200 mg PO Q4H PRN congestion 06/17/23 [History Last Taken Unknown] insulin lispro 100 unit/mL subcutaneous pen (Humalog KwikPen (U-100) Insulin) 5 unit subcut DAILY 06/17/23 [History Last Taken Unknown] loperamide 2 mg tablet 2 - 4 mg PO Q2H PRN loose stool 06/17/23 [History Last Taken Unknown] magnesium hydroxide 400 mg/5 mL oral suspension (Milk of Magnesia) 30 ml PO DAILY PRN constipation 06/17/23 [History Last Taken Unknown] psyllium husk 3.4 gram/5.4 gram oral powder (Shruti-Mucil) 1 tsp PO DAILY PRN CONSTIATION 06/17/23 [History Last Taken Unknown] sodium phosphates 19 gram-7 gram/118 mL enema (Enema) 118 ml CA DAILY PRN constipation 06/17/23 [History Last Taken Unknown] torsemide 20 mg tablet 20 mg PO DAILY 06/17/23 [History Last Taken Unknown] Allergy/AdvReac Type Severity Reaction Status Date / Time amiodarone Allergy Mild PT UNSURE Verified 06/17/23 11:36 OF REACTION simvastatin Allergy Mild Other Verified 06/17/23 11:36 lovastatin [From Advicor] Allergy Unknown UNKNOWN Verified 06/17/23 11:36 niacin [From Advicor] Allergy Unknown UNKNOWN Verified 06/17/23 11:36 pravastatin [From Pravachol] Allergy Unknown UNKNOWN Verified 06/17/23 11:36 hydralazine Allergy PT UNSURE Verified 06/17/23 11:36 OF REACTION Influenza Virus Vaccines Allergy Hives Verified 06/17/23 11:36 Penicillins Allergy Rash Verified 06/17/23 11:36 rosuvastatin [From Crestor] Allergy PT UNSURE Verified 06/17/23 11:36 OF REACTION Family History Other CAD (coronary artery disease) Hypertension Seizures Surgical History H/O coronary artery bypass surgery (07/11/07) History of cholecystectomy (01/2021) History of coronary artery stent placement (05/28/17) History of left heart catheterization (05/06/10) History of lumbar fusion (02/2017) History of permanent cardiac pacemaker placement (07/19/18) History of radiofrequency ablation procedure for cardiac arrhythmia (08/25/13) History of right and left heart catheterization (05/28/17) Hx of appendectomy Hx of bilateral cataract extraction Social History current occupational status: retired Smoking Status: Never smoker alcohol intake: never substance use type: does not use ROS ROS ED Constitutional Constitutional ED: Denies chills or fever(s) Eyes Eyes: Denies diplopia Cardiovascular Cardiovascular: Denies chest pain or palpitations Respiratory/Chest Respiratory/Chest: Denies cough or dyspnea Gastrointestinal Gastrointestinal: Denies abdominal pain, nausea or vomiting Genitourinary Genitourinary ED: Denies dysuria, hematuria or urinary urgency Musculoskeletal Musculoskeletal: Reports arthralgias; Denies back pain or neck pain Integumentary Denies abscess, Abrasions or rash Neurologic Neurologic: Denies dizziness, paresthesias or weakness EXAM Physical Exam Const Vital Signs: 06/17/23 11:29 Temperature 97.1 F L Temperature Source Temporal Pulse Rate 60 Respiratory Rate 14 Blood Pressure 156/65 H Blood Pressure Mean 95 Pulse Ox 97 Positive well nourished, well developed and no apparent distress General Appearance ED: well developed HEENT Reports normocephalic and head/scalp atraumatic Mouth ED: Yes moist mucous membranes normal Eyes PERRL and EOMs intact bilaterally Neck full ROM and supple Chest Wall inspection of chest normal Resp normal respiratory effort and clear to auscultation bilaterally Cardio regular rate and regular rhythm GI soft to palpation, non-tender, non-distended and no masses Back/Spine normal ROM and normal to inspection Extremity Extremity Narrative: Externally rotated right hip with shortened right leg, pain to the greater trochanter on the right side, DP pulses 2+ bilaterally, good capillary refill, sensation intact. Neuro oriented x3, CN's II-XII intact bilaterally, moves all extremities, no focal motor deficits and no sensory deficits noted Sensorium / Orientation: awake and alert Psych mental status grossly normal and thought process normal Skin no rashes or lesions noted and no wounds MDM MDM MDM Narrative Medical decision making narrative: Patient presenting today with pain to his right hip after mechanical fall that occurred this morning causing him to fall onto his right hip. He does have an externally rotated right hip with a shortened right leg. He does appear to be in pain. He was still able to go to dialysis this morning. He has been given morphine here and preop labs, chest x-ray, and EKG will be obtained. Right hip x-ray will be obtained to rule out fracture and does show a comminuted intertrochanteric right hip fracture. I did speak with the hospitalist and Dr. Rollins and orthopedics was consulted, he will be admitted to the hospital to PCU given his cardiac history and being on blood thinners. He has been given additional pain control and will be admitted to the hospital in stable condition. He is comfortable with plan. Lab Data Attestation: I reviewed the patient's lab results. Lab results narrative: WBC 13.6, H&H 9.5 and 30.4, platelet count 126, BUN 72, creatinine 4.9 Labs: Laboratory Results - last 24 hr 06/17/23 12:00 WBC 13.6 H RBC 3.09 L Hgb 9.7 L Hct 30.1 L MCV 97.4 H MCH 31.4 MCHC 32.2 RDW Std Deviation 47.0 H RDW Coeff of Saloni 13.2 Plt Count 126 L MPV 10.5 Immature Gran % (Auto) 1.000 H Neut % (Auto) 77.3 H Lymph % (Auto) 7.5 L Izard % (Auto) 11.3 H Eos % (Auto) 2.4 Baso % (Auto) 0.5 Absolute Neuts (auto) 10.6 H Absolute Lymphs (auto) 1.02 Nucleated RBC % 0 Differential Comment COMMENT Diff Path Review May foll Sodium 138 Potassium 4.3 Chloride 100 Carbon Dioxide 27.0 Anion Gap 11 BUN 72 H Creatinine 4.90 H Estim Creat Clear Calc 9.94 Est GFR (MDRD) Af Amer 15 L Est GFR (MDRD) Non-Af 12 L BUN/Creatinine Ratio 14.7 Glucose 162 H Calcium 9.0 Phosphorus 3.4 Magnesium 2.0 Blood Type A POSITIVE Antibody Screen NEGATIVE Radiography X-Ray: Read by ED Physician and Read by Radiologist Diagnostic Testing: Clinical Impression(s) from Imaging Studies Hip/Pelvis X-Ray 06/17/23 11:49 IMPRESSION: Comminuted fracture of the right intertrochanteric region of the proximal right femur. Marked degree of joint space narrowing involving both hip joints. Electronically Signed: Gavin Salazar MD at 13:23 EDT , Chest X-Ray 06/17/23 12:55 IMPRESSION: Cardiac megaly. The lungs are clear. Electronically Signed: Gavin Salazar MD at 13:20 EDT , EKG Initial EKG: Comments: 60 bpm, ventricular paced rhythm, no ST elevation, reviewed and interpreted by attending ED physician Discharge Plan Dx/Rx/DC Orders Clinical Impression: Hx of usp use of blood thinners, CKD (chronic kidney disease), Fracture of hip, right, closed Disposition Disposition: Acute Care Hospital [facility] Discharge Date/Time: 06/17/23 14:46
[2023-06-17 14:45] VITALS: BP 119/62; PULSE 59; RESP 18; TEMP 36.5; O2SAT 96; BMI 31.6
[2023-06-17 14:47] LABS: Hematocrit 30.4 % (40-54); Hemoglobin 9.5 g/dL (13.0-16.5)
[2023-06-17] MEDS: oxyCODONE 5 MG Tablet PO ×2 (15:39→19:59)
[2023-06-17] MEDS: Acetaminophen 325 MG Tablet 650 MG PO ×2 (15:39→19:59)
[2023-06-17] MEDS: Isosorbide DN 20 MG Tablet PO ×2 (15:40→20:56)
[2023-06-17] MEDS: 0.9% Saline Lock 10 ML Syringe IV (15:40)
[2023-06-17] MEDS: Tamsulosin HCl 0.4 MG Capsule PO (16:43)
[2023-06-17 16:51] LABS: ALB/GLOB Ratio 0.8 RATIO (0.9-2.4); AST(SGOT) 21 U/L (15-37); Alanine Aminotransfer ALT/SGPT 18 U/L (16-61); Alkaline Phosphatase 53 U/L (45-117); Anion Gap 8 (5-15); BUN 74 mg/dL (7-18); BUN/Creat Ratio 14.8 RATIO (10-20); Calcium,Total 8.9 mg/dL (8.5-10.1); Chloride 100 mmol/L (98-107); EST Glomerular Filtration Rate 12 mL/min (>60); Est Glom Filt Rate - Afr Amer 14 mL/min (>60); Estimated Creatinine Clearance 9.74 ml/min; Glucose 143 mg/dL (74-106); Potassium 4.9 mmol/L (3.5-5.1); Sodium Level 136 mmol/L (136-145)
[2023-06-17 19:45] VITALS: O2SAT 92
[2023-06-17 19:47] LABS: Hemoglobin 9.6 g/dL (13.0-16.5)
[2023-06-17 19:49] VITALS: BP 147/57; PULSE 60; RESP 16; TEMP 35.9; O2SAT 97
[2023-06-17] MEDS: Mirtazapine 30 MG Tablet PO (20:56)
[2023-06-17] MEDS: Senna/Docusate Sodium 1 Tablet 2 TABLET PO (20:56)
[2023-06-17] MEDS: APIXABAN 2.5 MG TABLET (WCH) PO (22:05)
[2023-06-18] VITALS (14 sets, daily range): BP systolic 95–237; BP diastolic 40–54; PULSE 60–69; RESP 12–16; TEMP 36.2–36.8; O2SAT 91–97; BMI 31.9; BMI 31.6
[2023-06-18] MEDS: Isosorbide DN 20 MG Tablet PO ×3 (05:09→22:23)
[2023-06-18] MEDS: Acetaminophen 325 MG Tablet 650 MG PO ×2 (05:10→09:18)
[2023-06-18] MEDS: oxyCODONE 5 MG Tablet PO ×3 (05:10→22:46)
[2023-06-18 06:19] LABS: Absolute Lymphocyte Count 1.77 X10^3/uL (0.83-4.51); Absolute Neutrophil Count 5.2 X10^3/uL (2.0-7.7); Basophil# 0.08 X10^3/uL; Basophil% 0.9 % (0-1); Eosinophil# 0.35 X10^3/uL; Hematocrit 27.6 % (40-54); Hemoglobin 8.7 g/dL (13.0-16.5); Lymphocyte # 1.77 X10^3/ul (0.83-4.51); Lymphocyte % 20.1 % (19-41); Mean Corp Hgb Conc 31.5 g/dL (32-36); Mean Corpuscular Hgb 30.5 pg (27.0-32.0); Mean Corpuscular Volume 96.8 fL (80-94); Mean Platelet Vol. 10.8 fl (6.2-12.0); Monocyte% 15.9 % (0-10); NRBC Flagged by Analyzer 0 % (0-5); Neutrophil # 5.15 X10^3/uL (2.7-7.7); Neutrophil % 58.4 % (47-70); Platelet Count 145 K/mm3 (150-450); RBC Distribution Width CV 13.2 % (11.6-14.6); RBC Distribution Width SD 46.5 fl (35.1-43.9); Red Blood Count 2.85 M/mm3 (4.6-6.2); White Blood Count 8.8 K/mm3 (4.4-11.0)
[2023-06-18 06:54] LABS: Anion Gap 6 (5-15); BUN 88 mg/dL (7-18); Calcium,Total 8.6 mg/dL (8.5-10.1); Chloride 100 mmol/L (98-107); Creatinine, Serum 5.85 mg/dL (0.70-1.30); EST Glomerular Filtration Rate 10 mL/min (>60); Est Glom Filt Rate - Afr Amer 12 mL/min (>60); Estimated Creatinine Clearance 8.32 ml/min; Glucose 94 mg/dL (74-106); Potassium 5.2 mmol/L (3.5-5.1); Sodium Level 134 mmol/L (136-145)
[2023-06-18] MEDS: 0.9% Normal Saline 1,000 ML IV.SOLN. 1000 ML OPERA.SITE (09:06)
[2023-06-18] MEDS: 0.9% Saline Lock 10 ML Syringe IV ×2 (09:07→11:28)
[2023-06-18] MEDS: PureFlow B 2K Dialysis Soln 1 BAG 6 BAG PF (09:07)
[2023-06-18] MEDS: Bumetanide 2 MG Tablet PO ×2 (09:20→22:23)
[2023-06-18] MEDS: Ferrous Sulfate 325 MG Tablet PO (09:20)
[2023-06-18] MEDS: Calcitriol 0.25 MCG Capsule PO (09:20)
[2023-06-18] MEDS: Senna/Docusate Sodium 1 Tablet 2 TABLET PO (09:20)
[2023-06-18] MEDS: Hydroxychloroquine 200 MG Tablet PO (09:20)
[2023-06-18] MEDS: Calcium (Elemental) 500 MG Tablet PO (09:20)
[2023-06-18] MEDS: Pantoprazole Sodium 40 MG Tablet PO (09:20)
[2023-06-18] MEDS: Ascorbic Acid 500 MG Tablet PO (09:20)
--- NOTE | 2023-06-18 11:55 | CASEMGMT ---
SOPHY called patient's granddaughter, Leela and confirmed patient's plan will be to return to [facility] as this is his permanent residence. SOPHY sent updates to [facility] and asked if patient will need pre-cert prior to returning. Plan: d/c back to [facility]. Lisa GARNETT
--- NOTE | 2023-06-18 12:09 | PCM.CONS.GEN ---
Assessment & Plan Assessment/Plan (1) Fracture of hip, right, closed: PLAN: Dr. Charles Rollins did discuss and review with the hospitalist as well as Dr. Pelayo the patient's current status. They understand that due to patient's current Eliquis use and dialysis we recommended delaying surgery until early Wednesday morning to reverse the effects of the Eliquis and avoid excess blood loss during surgical intervention. Incidentally the patient did receive another dose of Eliquis yesterday evening which is another reason for surgical delay Per Dr. Orozco the patient has been cleared for surgical intervention I discussed and reviewed all treatment options with the patient at length including surgical and nonsurgical treatment options. At this time the patient does wish to proceed with open reduction internal fixation right intertrochanteric hip fracture. Potential risk benefits and complications of this procedure were discussed and reviewed at length including but not limited to infection nerve blood vessel damage persistent pain numbness tingling paresthesias blood clot pulmonary malaise him in the requirement possible further surgery. He expressed full understanding has no further questions does agree to proceed with the above-stated procedure and will sign the surgical consent form. As stated above we will plan to perform the surgery early Wednesday. We will continue to hold Eliquis at this time. Please do not hesitate to contact us with any further orthopedic concerns. HPI Consult Data Date of Consult: 06/18/23 HPI Narrative Reason for Consultation: Right hip fracture HPI Narrative: JUVENTINO CERNA, is a 82 M who was brought to [facility] emergency department June 17, 2023 after a fall. He is a resident of [facility]. He is on renal dialysis. It was a date for his dialysis treatment. He was transferring to a wheelchair that was not locked and he fell to the ground landing on his right side. He had increased right hip pain at that time. He did not hit his head or lose consciousness. He went to renal dialysis and then was brought to the emergency department. X-rays revealed an intertrochanteric right hip fracture he was admitted to the progressive care unit and orthopedics was consulted. He also is anticoagulated with Eliquis due to history of atrial fibrillation. Has a history of diabetes myelitis with most recent hemoglobin A1c being less than 7 per patient report. He denies any pre-existing hip pain prior to the fall. He did have pre-existing left shoulder and radiating arm symptoms with stiffness. This was not made worse with the fall. He has immobility. He does have a history of rheumatoid arthritis. He did ambulate with a walker with wheels occasionally used a wheelchair prior to this injury. This was primarily for balance. He denies a history of DVT or pulmonary embolism. Denies any knee or ankle pain on the right side. Denies numbness or tingling. [facility] Medical History LUCAS (acute kidney injury) Ambulates with cane Amiodarone pulmonary toxicity Anemia Arthritis Atherosclerosis of coronary artery without angina pectoris AV block, Mobitz II BPH (benign prostatic hyperplasia) COPD (chronic obstructive pulmonary disease) Diabetes mellitus, type II Dialysis complication Essential hypertension Fibromyalgia Gastric reflux Heart failure with reduced ejection fraction History of steroid therapy Hyperlipidemia Ischemic cardiomyopathy Longstanding persistent atrial fibrillation Loss of hearing Non-smoker Nonrheumatic aortic (valve) stenosis On home oxygen therapy Peritoneal dialysis catheter in place Prostate disease Pulmonary fibrosis Rheumatoid arthritis 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 Symptomatic bradycardia Tinea manus Tinea unguium Weakness Wears glasses Home Medications aspirin 81 mg chewable tablet 81 mg PO DAILY@0800 blood thinner 03/10/14 [History Last Taken 10/29/21] hydroxychloroquine 200 mg tablet 200 mg PO DAILY arthritis 09/26/20 [History Last Taken 11/18/22 08:00] apixaban 2.5 mg tablet (Eliquis) 2.5 mg PO BID A fib 09/08/21 [History Last Taken 10/29/21] calcium carbonate 500 mg calcium (1,250 mg) tablet 500 mg PO DAILY SUPPLEMENT 09/08/21 [History Last Taken 11/04/21] mirtazapine 45 mg tablet 45 mg PO DAILY MOOD 09/08/21 [History Last Taken 11/04/21] ferrous sulfate 325 mg (65 mg iron) tablet 325 mg PO DAILY iron supplement 08/21/22 [History Last Taken 11/18/22 12:00] tamsulosin 0.4 mg capsule 0.4 mg PO DAILY prostate 08/21/22 [History Last Taken 11/17/22 21:00] isosorbide dinitrate 20 mg tablet 20 mg PO TID HEART #270 tabs 08/25/22 [Rx Last Taken 11/18/22 12:00] lorazepam 0.5 mg tablet 0.5 mg PO QHS anxiety 10/07/22 [History Last Taken Unknown] atorvastatin 40 mg tablet 40 mg PO QHS BP 11/19/22 [History Last Taken 11/17/22 21:00] carvedilol 12.5 mg tablet 12.5 mg PO BID BP 11/19/22 [History Last Taken 11/18/22 08:00] pantoprazole 40 mg tablet,delayed release 40 mg PO DAILY GERD 11/19/22 [History Last Taken Unknown] tramadol 50 mg tablet 50 mg PO Q12H PRN Pain 11/19/22 [History Last Taken Unknown] potassium chloride 20 mEq tablet,extended release 40 meq (2 x 20 mEq) PO DAILY diuretic 30 days #60 tabs 11/24/22 [Rx Last Taken Unknown] bumetanide 2 mg tablet 2 mg PO Q12H 12/25/22 [History Last Taken Unknown] acetaminophen 325 mg capsule 650 mg PO Q4H PRN fever or pain 06/17/23 [History Last Taken Unknown] acetaminophen 650 mg rectal suppository 650 mg NC Q4H PRN fever or pain 06/17/23 [History Last Taken Unknown] aluminum-magnesium hydroxide 225 mg-200 mg/5 mL oral suspension 30 ml PO Q4H PRN PRN GI DISTRESS 06/17/23 [History Last Taken Unknown] ascorbic acid (vitamin C) 500 mg capsule 500 mg PO DAILY 06/17/23 [History Last Taken Unknown] bisacodyl 10 mg rectal suppository 10 mg NC DAILY PRN constipation 06/17/23 [History Last Taken Unknown] calcitriol 0.25 mcg capsule 0.25 mcg PO DAILY 06/17/23 [History Last Taken Unknown] dextrose 40 % oral gel 15 g PO Q15M PRN hypoglycemia 06/17/23 [History Last Taken Unknown] glipizide 5 mg tablet 5 mg PO DAILY 06/17/23 [History Last Taken Unknown] glucagon HCl 1 mg solution for injection (Glucagon (HCl) Emergency Kit) 1 mg IM Q20M PRN hypoglycemia 06/17/23 [History Last Taken Unknown] guaifenesin 100 mg/5 mL oral liquid (Adult Tussin Chest Congestion) 200 mg PO Q4H PRN congestion 06/17/23 [History Last Taken Unknown] insulin lispro 100 unit/mL subcutaneous pen (Humalog KwikPen (U-100) Insulin) 5 unit subcut DAILY 06/17/23 [History Last Taken Unknown] loperamide 2 mg tablet 2 - 4 mg PO Q2H PRN loose stool 06/17/23 [History Last Taken Unknown] magnesium hydroxide 400 mg/5 mL oral suspension (Milk of Magnesia) 30 ml PO DAILY PRN constipation 06/17/23 [History Last Taken Unknown] psyllium husk 3.4 gram/5.4 gram oral powder (Shruti-Mucil) 1 tsp PO DAILY PRN CONSTIATION 06/17/23 [History Last Taken Unknown] sodium phosphates 19 gram-7 gram/118 mL enema (Enema) 118 ml NC DAILY PRN constipation 06/17/23 [History Last Taken Unknown] torsemide 20 mg tablet 20 mg PO DAILY 06/17/23 [History Last Taken Unknown] Allergy/AdvReac Type Severity Reaction Status Date / Time amiodarone Allergy Mild PT UNSURE Verified 06/17/23 11:36 OF REACTION simvastatin Allergy Mild Other Verified 06/17/23 11:36 lovastatin [From Advicor] Allergy Unknown UNKNOWN Verified 06/17/23 11:36 niacin [From Advicor] Allergy Unknown UNKNOWN Verified 06/17/23 11:36 pravastatin [From Pravachol] Allergy Unknown UNKNOWN Verified 06/17/23 11:36 hydralazine Allergy PT UNSURE Verified 06/17/23 11:36 OF REACTION Influenza Virus Vaccines Allergy Hives Verified 06/17/23 11:36 Penicillins Allergy Rash Verified 06/17/23 11:36 rosuvastatin [From Crestor] Allergy PT UNSURE Verified 06/17/23 11:36 OF REACTION Family History Other CAD (coronary artery disease) Hypertension Seizures Surgical History H/O coronary artery bypass surgery (07/11/07) History of cholecystectomy (01/2021) History of coronary artery stent placement (05/28/17) History of left heart catheterization (05/06/10) History of lumbar fusion (02/2017) History of permanent cardiac pacemaker placement (07/19/18) History of radiofrequency ablation procedure for cardiac arrhythmia (08/25/13) History of right and left heart catheterization (05/28/17) Hx of appendectomy Hx of bilateral cataract extraction Social History current occupational status: retired Smoking Status: Never smoker alcohol intake: never substance use type: does not use ROS ROS Narrative Review of systems were discussed and reviewed at length with the patient. Pertinent positives and negatives are documented below in the electronic medical record Physical Exam Narrative Patient is resting comfortably in hospital bed during exam. No acute distress at rest breathing easily without respiratory distress. He is alert and oriented x3. The right hip is shortened and externally rotated. His left shoulder and upper arm are with some edema present tenderness to palpation over the left shoulder and elbow. He has marked stiffness for active and passive mobility of the left shoulder and elbow. Full mobility of wrist and fingers on the left sensation intact light touch capillary refill less than 3 seconds. Right hip mobility deferred due to fracture. Right knee without deformity or tenderness. No calf pain or swelling bilaterally. No ankle tenderness bilaterally. Patient is able to actively plantar and dorsiflex bilateral ankles against resistance sensation intact light touch capillary refill less than 3 seconds neurovascularly intact. Medical Records Data Medical records narrative: X-rays of right hip and pelvis dated June 17, 2023 discussed and reviewed at length with Dr. Charles Rollins as well as the patient. Consistent with marked degenerative changes complete loss of joint space bilateral hips flattening of the femoral head sclerotic and cystic changes. Displaced low intertrochanteric hip fracture with lesser trochanter fracture completely displaced Chest x-ray results June 17, 2023 reviewed no acute abnormalities noted Previous x-rays of left shoulder from [facility] February 10, 2021 reviewed consistent with marked degenerative changes of the acromioclavicular joint high riding humeral head consistent with chronic rotator cuff arthropathy Lab / Micro Data 06/18/23 05:33 06/18/23 05:33 Labs: Laboratory Results - last 24 hr 06/17/23 12:00: WBC 13.6 H, RBC 3.09 L, Hgb 9.7 L, Hct 30.1 L, MCV 97.4 H, MCH 31.4, MCHC 32.2, RDW Std Deviation 47.0 H, RDW Coeff of Saloni 13.2, Plt Count 126 L, MPV 10.5, Immature Gran % (Auto) 1.000 H, Neut % (Auto) 77.3 H, Lymph % (Auto) 7.5 L, Glenn % (Auto) 11.3 H, Eos % (Auto) 2.4, Baso % (Auto) 0.5, Absolute Neuts (auto) 10.6 H, Absolute Lymphs (auto) 1.02, Nucleated RBC % 0, Differential Comment COMMENT, Diff Path Review March, Sodium 138, Potassium 4.3, Chloride 100, Carbon Dioxide 27.0, Anion Gap 11, BUN 72 H, Creatinine 4.90 H, Estim Creat Clear Calc 9.94, Est GFR (MDRD) Af Amer 15 L, Est GFR (MDRD) Non-Af 12 L, BUN/Creatinine Ratio 14.7, Glucose 162 H, Calcium 9.0, Phosphorus 3.4, Magnesium 2.0, Blood Type A POSITIVE, Antibody Screen NEGATIVE 06/17/23 14:30: Hgb 9.5 L, Hct 30.4 L 06/17/23 16:05: Sodium 136, Potassium 4.9, Chloride 100, Carbon Dioxide 28.0, Anion Gap 8, BUN 74 H, Creatinine 5.00 H, Estim Creat Clear Calc 9.74, Est GFR (MDRD) Af Amer 14 L, Est GFR (MDRD) Non-Af 12 L, BUN/Creatinine Ratio 14.8, Glucose 143 H, Calcium 8.9, Total Bilirubin 0.60, AST 21, ALT 18, Alkaline Phosphatase 53, Total Protein 7.0, Albumin 3.0 L, Globulin 4.0, Albumin/Globulin Ratio 0.8 L, Vitamin D 25-Hydroxy 39.0 06/17/23 19:35: Hgb 9.6 L, Hct 30.0 L 06/18/23 05:33: WBC 8.8, RBC 2.85 L, Hgb 8.7 L, Hct 27.6 L, MCV 96.8 H, MCH 30.5, MCHC 31.5 L, RDW Std Deviation 46.5 H, RDW Coeff of Saloni 13.2, Plt Count 145 L, MPV 10.8, Immature Gran % (Auto) 0.700, Neut % (Auto) 58.4, Lymph % (Auto) 20.1, Glenn % (Auto) 15.9 H, Eos % (Auto) 4.0, Baso % (Auto) 0.9, Absolute Neuts (auto) 5.2, Absolute Lymphs (auto) 1.77, Nucleated RBC % 0, Sodium 134 L, Potassium 5.2 H, Chloride 100, Carbon Dioxide 28.0, Anion Gap 6, BUN 88 H, Creatinine 5.85 H, Estim Creat Clear Calc 8.32, Est GFR (MDRD) Af Amer 12 L, Est GFR (MDRD) Non-Af 10 L, BUN/Creatinine Ratio 15.0, Glucose 94, Calcium 8.6 Radiology Impression Hip/Pelvis X-Ray 06/17/23 11:49 IMPRESSION: Comminuted fracture of the right intertrochanteric region of the proximal right femur. Marked degree of joint space narrowing involving both hip joints. Electronically Signed: Gavin Salazar MD at 13:23 EDT , Chest X-Ray 06/17/23 12:55 IMPRESSION: Cardiac megaly. The lungs are clear. Electronically Signed: Gavin Salazar MD at 13:20 EDT ,
[2023-06-18 12:14] LABS: Pathologist Review Reviewed
--- NOTE | 2023-06-18 12:56 | PCM.CONS.R ---
Assessment & Plan Assessment/Plan (1) Fracture of hip, right, closed: (2) ESRD (end stage renal disease): (3) Anemia of chronic disease: PLAN: Plan This is a 82-year-old male with past medical history significant for ESRD on hemodialysis at [facility] who presented to the emergency room yesterday after he sustained a fall after transferring to wheelchair. Patient was found to have right hip fracture admitted for further evaluation and treatment. Patient underwent hemodialysis today on 2K bath (potassium was 5.2) and tolerated around 700 mL fluid removal. Patient appears near euvolemic. We will continue to provide hemodialysis support while patient is in the hospital. Likely next dialysis will be on Wednesday. Orthopedics has been consulted for evaluation for right hip fracture and possibly planning surgery early Wednesday. Patient has history of atrial fibrillation on Eliquis. Currently Eliquis is on hold. Patient has history of anemia of chronic disease and receives LORRAINE and iron at dialysis. We will monitor hemoglobin trends. Current blood pressure low but acceptable; patient is on carvedilol and recommend holding a.m. dose on days of dialysis. Potassium was 5.2 this morning, patient dialyzed on 2K bath, we will add low potassium diet restrictions. Further orders forthcoming as hospitalization evolves, thank you for allowing us to participate in the care of Mr. Cerna. HPI Consult Data Date of Consult: 06/18/23 HPI Narrative HPI Narrative: JUVENTINO CERNA, is a 82 M with past medical tree significant for diabetes mellitus type 2, coronary artery disease status post CABG, atrial fibrillation on Eliquis, heart failure with reduced EF, ESRD on hemodialysis at [facility] Wednesday, Wednesday, , Wednesday schedule who presented to the emergency room after a fall. Work-up in the emergency room patient was found to have fracture of right hip therefore he was admitted for further evaluation and treatment. [facility]. Patient currently denies any complaints, eating lunch. He underwent hemodialysis already today in the hospital. [facility] Medical History LUCAS (acute kidney injury) Ambulates with cane Amiodarone pulmonary toxicity Anemia Arthritis Atherosclerosis of coronary artery without angina pectoris AV block, Mobitz II BPH (benign prostatic hyperplasia) COPD (chronic obstructive pulmonary disease) Diabetes mellitus, type II Dialysis complication Essential hypertension Fibromyalgia Gastric reflux Heart failure with reduced ejection fraction History of steroid therapy Hyperlipidemia Ischemic cardiomyopathy Longstanding persistent atrial fibrillation Loss of hearing Non-smoker Nonrheumatic aortic (valve) stenosis On home oxygen therapy Peritoneal dialysis catheter in place Prostate disease Pulmonary fibrosis Rheumatoid arthritis 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 Symptomatic bradycardia Tinea manus Tinea unguium Weakness Wears glasses Home Medications aspirin 81 mg chewable tablet 81 mg PO DAILY@0800 blood thinner 03/10/14 [History Last Taken 10/29/21] hydroxychloroquine 200 mg tablet 200 mg PO DAILY arthritis 09/26/20 [History Last Taken 11/18/22 08:00] apixaban 2.5 mg tablet (Eliquis) 2.5 mg PO BID A fib 09/08/21 [History Last Taken 10/29/21] calcium carbonate 500 mg calcium (1,250 mg) tablet 500 mg PO DAILY SUPPLEMENT 09/08/21 [History Last Taken 11/04/21] mirtazapine 45 mg tablet 45 mg PO DAILY MOOD 09/08/21 [History Last Taken 11/04/21] ferrous sulfate 325 mg (65 mg iron) tablet 325 mg PO DAILY iron supplement 08/21/22 [History Last Taken 11/18/22 12:00] tamsulosin 0.4 mg capsule 0.4 mg PO DAILY prostate 08/21/22 [History Last Taken 11/17/22 21:00] isosorbide dinitrate 20 mg tablet 20 mg PO TID HEART #270 tabs 08/25/22 [Rx Last Taken 11/18/22 12:00] lorazepam 0.5 mg tablet 0.5 mg PO QHS anxiety 10/07/22 [History Last Taken Unknown] atorvastatin 40 mg tablet 40 mg PO QHS BP 11/19/22 [History Last Taken 11/17/22 21:00] carvedilol 12.5 mg tablet 12.5 mg PO BID BP 11/19/22 [History Last Taken 11/18/22 08:00] pantoprazole 40 mg tablet,delayed release 40 mg PO DAILY GERD 11/19/22 [History Last Taken Unknown] tramadol 50 mg tablet 50 mg PO Q12H PRN Pain 11/19/22 [History Last Taken Unknown] potassium chloride 20 mEq tablet,extended release 40 meq (2 x 20 mEq) PO DAILY diuretic 30 days #60 tabs 11/24/22 [Rx Last Taken Unknown] bumetanide 2 mg tablet 2 mg PO Q12H 12/25/22 [History Last Taken Unknown] acetaminophen 325 mg capsule 650 mg PO Q4H PRN fever or pain 06/17/23 [History Last Taken Unknown] acetaminophen 650 mg rectal suppository 650 mg SD Q4H PRN fever or pain 06/17/23 [History Last Taken Unknown] aluminum-magnesium hydroxide 225 mg-200 mg/5 mL oral suspension 30 ml PO Q4H PRN PRN GI DISTRESS 06/17/23 [History Last Taken Unknown] ascorbic acid (vitamin C) 500 mg capsule 500 mg PO DAILY 06/17/23 [History Last Taken Unknown] bisacodyl 10 mg rectal suppository 10 mg SD DAILY PRN constipation 06/17/23 [History Last Taken Unknown] calcitriol 0.25 mcg capsule 0.25 mcg PO DAILY 06/17/23 [History Last Taken Unknown] dextrose 40 % oral gel 15 g PO Q15M PRN hypoglycemia 06/17/23 [History Last Taken Unknown] glipizide 5 mg tablet 5 mg PO DAILY 06/17/23 [History Last Taken Unknown] glucagon HCl 1 mg solution for injection (Glucagon (HCl) Emergency Kit) 1 mg IM Q20M PRN hypoglycemia 06/17/23 [History Last Taken Unknown] guaifenesin 100 mg/5 mL oral liquid (Adult Tussin Chest Congestion) 200 mg PO Q4H PRN congestion 06/17/23 [History Last Taken Unknown] insulin lispro 100 unit/mL subcutaneous pen (Humalog KwikPen (U-100) Insulin) 5 unit subcut DAILY 06/17/23 [History Last Taken Unknown] loperamide 2 mg tablet 2 - 4 mg PO Q2H PRN loose stool 06/17/23 [History Last Taken Unknown] magnesium hydroxide 400 mg/5 mL oral suspension (Milk of Magnesia) 30 ml PO DAILY PRN constipation 06/17/23 [History Last Taken Unknown] psyllium husk 3.4 gram/5.4 gram oral powder (Shruti-Mucil) 1 tsp PO DAILY PRN CONSTIATION 06/17/23 [History Last Taken Unknown] sodium phosphates 19 gram-7 gram/118 mL enema (Enema) 118 ml SD DAILY PRN constipation 06/17/23 [History Last Taken Unknown] torsemide 20 mg tablet 20 mg PO DAILY 06/17/23 [History Last Taken Unknown] Allergy/AdvReac Type Severity Reaction Status Date / Time amiodarone Allergy Mild PT UNSURE Verified 06/17/23 11:36 OF REACTION simvastatin Allergy Mild Other Verified 06/17/23 11:36 lovastatin [From Advicor] Allergy Unknown UNKNOWN Verified 06/17/23 11:36 niacin [From Advicor] Allergy Unknown UNKNOWN Verified 06/17/23 11:36 pravastatin [From Pravachol] Allergy Unknown UNKNOWN Verified 06/17/23 11:36 hydralazine Allergy PT UNSURE Verified 06/17/23 11:36 OF REACTION Influenza Virus Vaccines Allergy Hives Verified 06/17/23 11:36 Penicillins Allergy Rash Verified 06/17/23 11:36 rosuvastatin [From Crestor] Allergy PT UNSURE Verified 06/17/23 11:36 OF REACTION Family History Other CAD (coronary artery disease) Hypertension Seizures Surgical History H/O coronary artery bypass surgery (07/11/07) History of cholecystectomy (01/2021) History of coronary artery stent placement (05/28/17) History of left heart catheterization (05/06/10) History of lumbar fusion (02/2017) History of permanent cardiac pacemaker placement (07/19/18) History of radiofrequency ablation procedure for cardiac arrhythmia (08/25/13) History of right and left heart catheterization (05/28/17) Hx of appendectomy Hx of bilateral cataract extraction Social History current occupational status: retired Smoking Status: Never smoker alcohol intake: never substance use type: does not use ROS ROS Narrative As in past medical history and HPI Physical Exam Narrative Alert, no apparent distress S1, S2, RRR Lung sounds clear anteriorly and posteriorly Abdomen soft, nontender No edema Tunneled HD catheter dressing clean, dry and intact Lab / Micro Data 06/18/23 05:33 06/18/23 05:33 Labs: Laboratory Results - last 24 hr 06/17/23 12:00: Differential Comment COMMENT, Diff Path Review Reviewed, Phosphorus 3.4, Magnesium 2.0, Blood Type A POSITIVE, Antibody Screen NEGATIVE 06/17/23 14:30: Hgb 9.5 L, Hct 30.4 L 06/17/23 16:05: Sodium 136, Potassium 4.9, Chloride 100, Carbon Dioxide 28.0, Anion Gap 8, BUN 74 H, Creatinine 5.00 H, Estim Creat Clear Calc 9.74, Est GFR (MDRD) Af Amer 14 L, Est GFR (MDRD) Non-Af 12 L, BUN/Creatinine Ratio 14.8, Glucose 143 H, Calcium 8.9, Total Bilirubin 0.60, AST 21, ALT 18, Alkaline Phosphatase 53, Total Protein 7.0, Albumin 3.0 L, Globulin 4.0, Albumin/Globulin Ratio 0.8 L, Vitamin D 25-Hydroxy 39.0 06/17/23 19:35: Hgb 9.6 L, Hct 30.0 L 06/18/23 05:33: WBC 8.8, RBC 2.85 L, Hgb 8.7 L, Hct 27.6 L, MCV 96.8 H, MCH 30.5, MCHC 31.5 L, RDW Std Deviation 46.5 H, RDW Coeff of Saloni 13.2, Plt Count 145 L, MPV 10.8, Immature Gran % (Auto) 0.700, Neut % (Auto) 58.4, Lymph % (Auto) 20.1, [place] % (Auto) 15.9 H, Eos % (Auto) 4.0, Baso % (Auto) 0.9, Absolute Neuts (auto) 5.2, Absolute Lymphs (auto) 1.77, Nucleated RBC % 0, Sodium 134 L, Potassium 5.2 H, Chloride 100, Carbon Dioxide 28.0, Anion Gap 6, BUN 88 H, Creatinine 5.85 H, Estim Creat Clear Calc 8.32, Est GFR (MDRD) Af Amer 12 L, Est GFR (MDRD) Non-Af 10 L, BUN/Creatinine Ratio 15.0, Glucose 94, Calcium 8.6 Radiology Impression Hip/Pelvis X-Ray 06/17/23 11:49 IMPRESSION: Comminuted fracture of the right intertrochanteric region of the proximal right femur. Marked degree of joint space narrowing involving both hip joints. Electronically Signed: Gavin Salazar MD at 13:23 EDT , Chest X-Ray 06/17/23 12:55 IMPRESSION: Cardiac megaly. The lungs are clear. Electronically Signed: Gavin Salazar MD at 13:20 EDT ,
--- NOTE | 2023-06-18 17:14 | PCM.PN.HOSP ---
Reason for Visit Reason for Visit: Diagnoses Fracture of unspecified part of neck of right femur, initial encounter for closed fracture (06/17/23) Subjective Subjective Patient was seen and examined today, I briefly talked with orthopedic surgery, because the patient had received Eliquis last night he will not be able to have ORIF of his hip until Wednesday. Objective Data Objective Data Vital Signs: Vital Signs Temp Pulse Resp BP Pulse Ox O2 Del Method 98.1 F 60 12 111/46 L 92 Room Air 06/18/23 14:53 06/18/23 14:53 06/18/23 14:53 06/18/23 14:53 06/18/23 14:53 06/18/23 14:53 Oxygen Delivery Method Room Air Weight: 86.4 kg Body Mass Index (BMI) 31.6 Intake & Output: Intake and Output for Last 24 Hours 06/16/23 06/17/23 06/18/23 23:59 23:59 23:59 Intake Total 120 / 220 360 / 360 Output Total 750 / 750 Balance 120 / 220 -390 / -390 Lab / Micro Data 06/18/23 05:33 06/18/23 05:33 Labs: Laboratory Results - last 24 hr 06/17/23 12:00: Diff Path Review Reviewed 06/17/23 19:35: Hgb 9.6 L, Hct 30.0 L 06/18/23 05:33: WBC 8.8, RBC 2.85 L, Hgb 8.7 L, Hct 27.6 L, MCV 96.8 H, MCH 30.5, MCHC 31.5 L, RDW Std Deviation 46.5 H, RDW Coeff of Saloni 13.2, Plt Count 145 L, MPV 10.8, Immature Gran % (Auto) 0.700, Neut % (Auto) 58.4, Lymph % (Auto) 20.1, Grainger % (Auto) 15.9 H, Eos % (Auto) 4.0, Baso % (Auto) 0.9, Absolute Neuts (auto) 5.2, Absolute Lymphs (auto) 1.77, Nucleated RBC % 0, Sodium 134 L, Potassium 5.2 H, Chloride 100, Carbon Dioxide 28.0, Anion Gap 6, BUN 88 H, Creatinine 5.85 H, Estim Creat Clear Calc 8.32, Est GFR (MDRD) Af Amer 12 L, Est GFR (MDRD) Non-Af 10 L, BUN/Creatinine Ratio 15.0, Glucose 94, Calcium 8.6 Physical Exam Const alert, oriented x3, no apparent distress, average body habitus and healthy appearing General Appearance: cooperative, well kempt and well developed Orientation / Consciousness: awake, oriented to person, oriented to place and oriented to time HEENT normocephalic, head/scalp atraumatic and moist oral mucous membranes Eyes PERRL, EOMs intact bilaterally and conjunctivae normal Neck supple, no JVD, thyroid normal and no carotid bruits General: trachea midline Resp normal respiratory effort, no retractions, no use of accessory muscles and clear to auscultation bilaterally Auscultation: Negative for rales, rhonchi or wheezes Cardio regular rate, regular rhythm, S1 normal heart sound, S2 normal heart sound, no rub and no gallops Cardio Narrative: There is a 2/6 systolic murmur noted at the lower sternal border and apex, extrasystolic beats are noted GI normal to inspection, nondistended, normoactive bowel sounds, soft to palpation, non-tender and non-distended Extremity no clubbing, cyanosis or edema Skin no rashes or lesions noted General Skin Exam: no breakdown Neuro oriented x3, CN's II-XII intact bilaterally, no focal motor deficits and no sensory deficits noted Sensorium / Orientation: awake, alert, oriented to person, oriented to place and oriented to time Speech: speech normal Psych affect normal Assessment & Plan Assessment/Plan (1) Fracture of hip, right, closed: PLAN: Plan 1. Right intertrochanteric fracture -comminuted-secondary to osteoporosis patient will undergo ORIF on 06/20/2023, patient appears medically stable at this time, patient's Eliquis will be held #2 underlying atrial fibrillation with underlying ventricular paced rhythm-again patient will remain off Eliquis #3 coronary artery disease-patient is stable at this time and will remain on his present medications, stress test on 09/08/2022 showed no evidence of ischemia #4 end-stage renal disease with chronic dialysis-nephrology is participating in his care, dialysis days are Wednesday and Wednesday #5 ischemic cardiomyopathy-patient's last echocardiogram on 09/08/2022 showed an ejection fraction of 40%, patient remains on his present medications #6 pulmonary ijbfzlwmmwpa-[id number] will remain on his present medication #7 essential hypertension-patient will remain on his present medications #8 chronic debility-patient states he has been at an extended care facility since January 2023 #9 iron deficiency anemia-I will administer Venofer Total clinical time spent by myself addressing the patient's medical issues, reviewing all of the data, and collaborating with patient's care team: 35 minutes Charges/Coding Visit Charges Inpatient E&M: 23423 Subs Hosp L2
[2023-06-18] MEDS: Tamsulosin HCl 0.4 MG Capsule PO (18:34)
[2023-06-18] MEDS: Carvedilol 12.5 MG Tablet PO (22:23)
[2023-06-18] MEDS: Mirtazapine 30 MG Tablet PO (22:23)
[2023-06-18] MEDS: Nepro Liquid 120 ML LIQUID PO (23:01)
[2023-06-19 03:00] VITALS: BP 117/41; PULSE 58; RESP 14; TEMP 36.8; O2SAT 94
[2023-06-19 04:03] VITALS: BMI 32.3
[2023-06-19] MEDS: Isosorbide DN 20 MG Tablet PO ×3 (05:27→22:10)
[2023-06-19 05:48] LABS: Absolute Lymphocyte Count 1.63 X10^3/uL (0.83-4.51); Absolute Neutrophil Count 5.9 X10^3/uL (2.0-7.7); Basophil# 0.09 X10^3/uL; Basophil% 0.9 % (0-1); Eosinophil# 0.39 X10^3/uL; Hematocrit 26.8 % (40-54); Hemoglobin 8.4 g/dL (13.0-16.5); Lymphocyte # 1.63 X10^3/ul (0.83-4.51); Lymphocyte % 16.5 % (19-41); Mean Corp Hgb Conc 31.3 g/dL (32-36); Mean Corpuscular Hgb 30.8 pg (27.0-32.0); Mean Corpuscular Volume 98.2 fL (80-94); Mean Platelet Vol. 10.4 fl (6.2-12.0); Monocyte# 1.78 X10^3/uL; NRBC Flagged by Analyzer 0 % (0-5); Neutrophil # 5.91 X10^3/uL (2.7-7.7); Neutrophil % 59.9 % (47-70); POSITIVE DIFFERENTIAL YES; Platelet Count 142 K/mm3 (150-450); RBC Distribution Width CV 13.2 % (11.6-14.6); Red Blood Count 2.73 M/mm3 (4.6-6.2); White Blood Count 9.9 K/mm3 (4.4-11.0)
[2023-06-19 06:01] LABS: Differential Indicated SCAN CRITERIA MET
[2023-06-19 06:18] LABS: Anion Gap 8 (5-15); BUN 73 mg/dL (7-18); BUN/Creat Ratio 12.7 RATIO (10-20); Calcium,Total 8.6 mg/dL (8.5-10.1); Chloride 101 mmol/L (98-107); Creatinine, Serum 5.73 mg/dL (0.70-1.30); EST Glomerular Filtration Rate 10 mL/min (>60); Est Glom Filt Rate - Afr Amer 12 mL/min (>60); Glucose 160 mg/dL (74-106); Potassium 4.7 mmol/L (3.5-5.1); Sodium Level 136 mmol/L (136-145)
[2023-06-19 06:31] LABS: Differential Comment SCANNED
[2023-06-19 08:46] VITALS: BP 115/48; PULSE 61; RESP 16; TEMP 36.9; O2SAT 98
[2023-06-19] MEDS: Ascorbic Acid 500 MG Tablet PO (08:59)
[2023-06-19] MEDS: Senna/Docusate Sodium 1 Tablet 2 TABLET PO ×2 (08:59→22:08)
[2023-06-19] MEDS: Bumetanide 2 MG Tablet PO ×2 (08:59→22:19)
[2023-06-19] MEDS: Hydroxychloroquine 200 MG Tablet PO (08:59)
[2023-06-19] MEDS: Calcitriol 0.25 MCG Capsule PO (08:59)
[2023-06-19] MEDS: Pantoprazole Sodium 40 MG Tablet PO (08:59)
[2023-06-19] MEDS: Calcium (Elemental) 500 MG Tablet PO (08:59)
[2023-06-19] MEDS: Acetaminophen 325 MG Tablet 650 MG PO ×3 (09:00→17:20)
[2023-06-19] MEDS: oxyCODONE 5 MG Tablet PO ×3 (09:00→17:20)
[2023-06-19] MEDS: Ferrous Sulfate 325 MG Tablet PO (09:00)
[2023-06-19] MEDS: Insulin Lispro 100 UNIT/ML INSULN.PEN SC (09:05)
--- NOTE | 2023-06-19 09:44 | PN.HOSP_ITS ---
Reason for Visit Reason for Visit: Diagnoses Fracture of unspecified part of neck of right femur, initial encounter for clos ed fracture (06/17/23) Subjective Subjective Patient was seen and examined today, his hemoglobin is 8.4 today, I talked to him about his surgery tomorrow. Objective Data Objective Data Vital Signs: Vital Signs Temp Pulse Resp BP Pulse Ox O2 Del Method 98.4 F 61 16 115/48 L 98 Room Air 06/19/23 08:46 06/19/23 08:46 06/19/23 08:46 06/19/23 08:46 06/19/23 08:46 06/19/23 08:46 Oxygen Delivery Method Room Air Weight: 88.3 kg Body Mass Index (BMI) 32.3 Intake & Output: Intake and Output for Last 24 Hours 06/17/23 06/18/23 06/19/23 23:59 23:59 23:59 Intake Total 120 / 220 560 / 900 660 / 660 Output Total 750 / 750 0 / 0 Balance 120 / 220 -190 / 150 660 / 660 Lab / Micro Data 06/19/23 05:18 06/19/23 05:18 Labs: Laboratory Results - last 24 hr 06/17/23 12:00: Diff Path Review Reviewed 06/19/23 05:18: WBC 9.9, RBC 2.73 L, Hgb 8.4 L, Hct 26.8 L, MCV 98.2 H, MCH 30.8, MCHC 31.3 L, RDW Std Deviation 47.0 H, RDW Coeff of Saloni 13.2, Plt Count 142 L, MPV 10.4, Immature Gran % (Auto) 0.700, Neut % (Auto) 59.9, Lymph % (Auto) 16.5 L, [place] % (Auto) 18.0 H, Eos % (Auto) 4.0, Baso % (Auto) 0.9, Absolute Neuts (auto) 5.9, Absolute Lymphs (auto) 1.63, Nucleated RBC % 0, Differential Comment SCANNED, Sodium 136, Potassium 4.7, Chloride 101, Carbon Dioxide 27.0, Anion Gap 8, BUN 73 H, Creatinine 5.73 H, Estim Creat Clear Calc 8.50, Est GFR (MDRD) Af Amer 12 L, Est GFR (MDRD) Non-Af 10 L, BUN/Creatinine Ratio 12.7, Glucose 160 H, Calcium 8.6 Physical Exam Narrative alert, oriented x3, no apparent distress, average body habitus and healthy appearing General Appearance: cooperative, well kempt and well developed Orientation / Consciousness: awake, oriented to person, oriented to place and oriented to time HEENT normocephalic, head/scalp atraumatic and moist oral mucous membranes Eyes PERRL, EOMs intact bilaterally and conjunctivae normal Neck supple, no JVD, thyroid normal and no carotid bruits General: trachea midline Resp normal respiratory effort, no retractions, no use of accessory muscles and clear to auscultation bilaterally Auscultation: Negative for rales, rhonchi or wheezes Cardio regular rate, regular rhythm, S1 normal heart sound, S2 normal heart sound, no rub and no gallops Cardio Narrative: There is a 2/6 systolic murmur noted at the lower sternal border and apex, extra systolic beats are noted GI normal to inspection, nondistended, normoactive bowel sounds, soft to palpation, non-tender and non-distended Extremity no clubbing, cyanosis or edema Skin no rashes or lesions noted General Skin Exam: no breakdown Neuro oriented x3, CN's II-XII intact bilaterally, no focal motor deficits and no sensory deficits noted Sensorium / Orientation: awake, alert, oriented to person, oriented to place and oriented to time Speech: speech normal Psych affect normal Assessment & Plan Assessment/Plan (1) Closed right hip fracture: QUALIFIERS: Encounter type: initial encounter Qualified Code(s): S72.001A - Fracture of unspecified part of neck of right femur, initial encounter for closed fracture PLAN: Plan 1. Right intertrochanteric fracture -comminuted-secondary to osteoporosis patient will undergo ORIF on 06/20/2023, patient appears medically stable at this time, patient's Eliquis will be held #2 underlying atrial fibrillation with underlying ventricular paced rhythm-again patient will remain off Eliquis #3 coronary artery disease-patient is stable at this time and will remain on his present medications, stress test on 09/08/2022 showed no evidence of ischemia #4 end-stage renal disease with chronic dialysis-nephrology is participating in his care, dialysis days are Wednesday and Wednesday #5 ischemic cardiomyopathy-patient's last echocardiogram on 09/08/2022 showed an ejection fraction of 40%, patient remains on his present medications #6 pulmonary yewhwsozsnfu-lencvynx-ciyvoiu will remain on his present medication #7 essential hypertension-patient will remain on his present medications #8 chronic debility-patient states he has been at an extended care facility since January 2023 #9 iron deficiency anemia-I will administer Venofer Total clinical time spent by myself addressing the patient's medical issues, reviewing all of the data, and collaborating with patient's care team: 35 minutes Charges/Coding Visit Charges Inpatient E&M: 62451 Subs Hosp L2
[2023-06-19] MEDS: Nepro Liquid 120 ML LIQUID PO (12:59)
[2023-06-19 14:50] VITALS: BP 127/57; PULSE 63; RESP 16; TEMP 36.4; O2SAT 98
[2023-06-19] MEDS: Tamsulosin HCl 0.4 MG Capsule PO (17:20)
[2023-06-19] MEDS: Mirtazapine 30 MG Tablet PO (22:09)
[2023-06-19 22:15] VITALS: BP 111/46; PULSE 61; RESP 16; TEMP 36.7; O2SAT 97
[2023-06-20] VITALS (10 sets, daily range): BP systolic 127–152; BP diastolic 46–82; PULSE 60–68; RESP 16–18; TEMP 36.3–36.8; O2SAT 94–100; BMI 32.3; BMI 33.0
[2023-06-20] MEDS: Acetaminophen 325 MG Tablet 650 MG PO ×2 (01:52→22:06)
[2023-06-20] MEDS: oxyCODONE 5 MG Tablet PO ×2 (01:52→22:14)
[2023-06-20 03:33] LABS: Absolute Lymphocyte Count 1.16 X10^3/uL (0.83-4.51); Basophil# 0.07 X10^3/uL; Basophil% 0.6 % (0-1); Eosinophil# 0.37 X10^3/uL; Eosinophils% 3.1 % (0-5); Hematocrit 26.1 % (40-54); Hemoglobin 8.2 g/dL (13.0-16.5); Lymphocyte # 1.16 X10^3/ul (0.83-4.51); Lymphocyte % 9.8 % (19-41); Mean Corp Hgb Conc 31.4 g/dL (32-36); Mean Corpuscular Hgb 31.1 pg (27.0-32.0); Mean Corpuscular Volume 98.9 fL (80-94); Mean Platelet Vol. 9.9 fl (6.2-12.0); Monocyte# 2.14 X10^3/uL; NRBC Flagged by Analyzer 0 % (0-5); Neutrophil # 8.01 X10^3/uL (2.7-7.7); Neutrophil % 67.4 % (47-70); POSITIVE DIFFERENTIAL YES; Platelet Count 146 K/mm3 (150-450); RBC Distribution Width CV 13.4 % (11.6-14.6); Red Blood Count 2.64 M/mm3 (4.6-6.2); White Blood Count 11.9 K/mm3 (4.4-11.0)
[2023-06-20 03:39] LABS: Differential Indicated SCAN CRITERIA MET
[2023-06-20 04:23] LABS: Differential Comment SCANNED
[2023-06-20 04:24] LABS: Anion Gap 8 (5-15); BUN 85 mg/dL (7-18); BUN/Creat Ratio 12.2 RATIO (10-20); Calcium,Total 8.9 mg/dL (8.5-10.1); Chloride 101 mmol/L (98-107); Creatinine, Serum 6.95 mg/dL (0.70-1.30); EST Glomerular Filtration Rate 8 mL/min (>60); Est Glom Filt Rate - Afr Amer 10 mL/min (>60); Estimated Creatinine Clearance 7.01 ml/min; Glucose 135 mg/dL (74-106); Potassium 4.6 mmol/L (3.5-5.1); Sodium Level 135 mmol/L (136-145)
--- NOTE | 2023-06-20 05:00 | EKG12_ITS ---
Test Reason : PRE-OP Blood Pressure : / mmHG Vent. Rate : 060 BPM Atrial Rate : 057 BPM P-R Int : 000 ms QRS Dur : 222 ms QT Int : 552 ms P-R-T Axes : 000 -79 118 degrees QTc Int : 552 ms Ventricular-paced rhythm Abnormal ECG When compared with ECG of 17-JUN-2023 12:10, No significant change was found Confirmed by JESSICA WEBB, MANA ([id number]), food editor CHIQUITA HEWITT ([id number]) on 06/22/2023 9:44:44 AM Referred By: AJ Confirmed By:MANA LOPEZ MD
[2023-06-20] MEDS: Isosorbide DN 20 MG Tablet PO ×3 (06:18→22:06)
[2023-06-20 07:30] LABS: Bedside Glucose 105 mg/dL (74-106)
--- NOTE | 2023-06-20 07:30 | NURSING ---
Pt off floor for surgery
[2023-06-20 07:36] LABS: Hemoglobin A1c 6.2 % (3.8-5.6)
[2023-06-20] MEDS: Cefazolin 2 GM in 0.9% Normal Saline 100 ML IV (07:48)
--- NOTE | 2023-06-20 07:57 | RAD_ITS ---
STUDY: X-RAY - RIGHT HIP REASON FOR EXAM: Male, 82 years old. ORIF, HIP GAMMA NAIL SHORT TECHNIQUE: 7 fluoroscopic views of the hip. COMPARISON: Pelvic x-ray dated June 17, 2023 FINDINGS: The images shows surgical instrumentation of the right hip with newly placed intramedullary nail system demonstrating good bony contact and alignment with fixation and reduction of the intertrochanteric fracture fragments. RAD/Hip 1 view with Pelvis IMPRESSION: 1. Fluoroscopic-guided intramedullary nailing of the right hip. Electronically Signed: Errol Shrestha MD at 9:57 EDT ,
--- NOTE | 2023-06-20 09:04 | PCM.OP.BLANK ---
Operative Report Date of Procedure: 06/20/23 Preoperative diagnosis: Right hip displaced intertrochanteric fracture Postoperative diagnosis: Same Title of operation: Right hip open reduction internal fixation, intramedullary nail fixation, locked Surgeon: Dr. Charles Rollins [employer] Operator: Amy Daily PA-C Anesthesia: General, Dr. Chavez Medications: Ancef 2 gm EBL: 50 Fluids then: 200 Indications for surgery: Patient is an 82-year-old male sustained a hip fracture 06-17. Patient and their family explained diagnosis and treatment options. Patient evaluated by the medical services. Patient did wish to have surgery. Appropriate informed consent obtained and signed. Surgery was postponed due to Eliquis use. Findings: Patient had a displaced intertrochanteric hip fracture. They underwent standard reduction, internal fixation using a Stu short gamma nail. X-rays taken throughout. lead recreation assistant, physician psychologist research assistant, was utilized throughout the entire procedure. They were vital to the procedure from beginning to end. They help with patient transfer, patient padding and positioning, fracture reduction, maintenance of fracture reduction, internal fixation of implants, wound closure, bandage application, patient transfer. Without surgical dressing maker, surgical time would have been significantly increased and surgical outcome could have been less optimal. Procedure: Patient was taken to the operating room. Placed under a general anesthetic and transferred to the operating table with the help of the psychologist research assistant. With the help of the psychologist research assistant patient was prepped and padded for surgery. Operative side foot was well-padded and placed in the traction boot. Uninjured lower extremity was abducted and flexed out of harms way. BRISEYDA hose and SCDs utilized. Fluoroscopy was brought in. With the help of the psychologist research assistant and manipulation of the limb, reduction was nicely obtained as verified under AP lateral and oblique fluoroscopic images. . Operative hip/thigh was prepped padded draped in usual orthopedic sterile fashion for the procedure. Longitudinal incision was made just proximal to the greater trochanter. Taken through skin and subcutaneous tissue. Sharp awl was placed on the tip of the greater trochanter. Position verified under AP and lateral fluoroscopic images. This was then taken down inside the bone. Slightly bent ball-tipped guide armand was then placed from the tip of the greater trochanter into the intra-medullary canal of the femur. Its position verified radiographically. Reamer was then done over the tip of this with the help of the psychologist research assistant holding the soft tissue protector appropriately. Once reaming was done we placed the short 125? angle device over the guidepin. Traction that had been applied was now completely let off. The short nail was easily introduced. Guide armand removed. Outrigger device was utilized to position a guidepin from the lateral cortex of the femur across the fracture site and into the femoral head in a good position centrally, as noted on AP lateral and oblique fluoroscopic images. This was measured. Appropriate reaming done. Appreciate length lag screw was placed from the lateral cortex of the femur into the femoral head. A small amount of the screw was noted to be protruding laterally as planned. No cartilage penetration of the femoral head noted on any x-ray. Fracture was then compressed with the outrigger device. Proximal cap screw was placed by the psychologist research assistant seated down completely, confirmed, and then loosened one fourth turn. We then used the outrigger device to place distal cross locking screw under standard technique. This was confirmed to be of adequate length in good position on AP and lateral images. Outrigger device removed. Final set of AP and lateral proximal x-rays taken and saved. Incisions thoroughly irrigated. Closing by the psychologist research assistant with deep 0 Vicryl, mid layer 0 Vicryl, inverted 2-0 Vicryl, skin danielle. Puncture wounds closed with inverted 2-0 Vicryl and danielle. Xeroform 4 x 4's ABD tape applied. Patient was awoken from their anesthetic, transferred back to their own bed with the help of the psychologist research assistant and into recovery room in satisfactory condition. Patient will continue to be admitted to the hospital under the hospitalist service. Patient will resume Eliquis use tomorrow as discussed with Dr. Orozco. He will be weightbearing as tolerated on the right hip. Walker use as he did before surgery. Continue on medical service. Ancef will be used for postoperative antibiotic prophylaxis This note was generated with Droid system master dictation software. It may contain incorrect words, spelling, and punctuation that were not noted in checking the note before signing.
[2023-06-20 10:14] LABS: Bedside Glucose 87 mg/dL (74-106)
[2023-06-20] MEDS: Senna/Docusate Sodium 1 Tablet 2 TABLET PO ×2 (12:28→22:07)
[2023-06-20] MEDS: Ascorbic Acid 500 MG Tablet PO (12:28)
[2023-06-20] MEDS: Carvedilol 12.5 MG Tablet PO ×2 (12:29→22:07)
[2023-06-20] MEDS: Hydroxychloroquine 200 MG Tablet PO (12:29)
[2023-06-20] MEDS: Pantoprazole Sodium 40 MG Tablet PO (12:29)
[2023-06-20] MEDS: Calcitriol 0.25 MCG Capsule PO (12:30)
[2023-06-20] MEDS: Calcium (Elemental) 500 MG Tablet PO (12:30)
[2023-06-20] MEDS: Bumetanide 2 MG Tablet PO ×2 (12:31→22:06)
[2023-06-20] MEDS: Ferrous Sulfate 325 MG Tablet PO (12:32)
--- NOTE | 2023-06-20 13:12 | PCM.PN.HOSP ---
Reason for Visit Reason for Visit: Diagnoses Fracture of unspecified part of neck of right femur, initial encounter for closed fracture (06/17/23) Subjective Subjective Patient was seen and examined today, he underwent intramedullary nail fixation of his right hip fracture today, patient appears comfortable at the time of my examination. Objective Data Objective Data Vital Signs: Vital Signs Temp Pulse Resp BP Pulse Ox O2 Del Method O2 Flow Rate 98 F 62 18 152/54 H 94 Nasal Cannula 1 06/20/23 12:17 06/20/23 12:17 06/20/23 12:17 06/20/23 12:17 06/20/23 12:17 06/20/23 12:17 06/20/23 11:19 Oxygen Flow Rate (L/min) 1 Oxygen Delivery Method Nasal Cannula Weight: 88.3 kg Body Mass Index (BMI) 33.0 Intake & Output: Intake and Output for Last 24 Hours 06/18/23 06/19/23 06/20/23 23:59 23:59 23:59 Intake Total 560 / 900 1280 / 1400 385 / 385 Output Total 750 / 750 350 / 350 50 / 50 Balance -190 / 150 930 / 1050 335 / 335 Lab / Micro Data 06/20/23 03:12 06/20/23 03:12 Labs: Laboratory Results - last 24 hr 06/20/23 03:12: WBC 11.9 H, RBC 2.64 L, Hgb 8.2 L, Hct 26.1 L, MCV 98.9 H, MCH 31.1, MCHC 31.4 L, RDW Std Deviation 48.0 H, RDW Coeff of Saloni 13.4, Plt Count 146 L, MPV 9.9, Immature Gran % (Auto) 1.100 H, Neut % (Auto) 67.4, Lymph % (Auto) 9.8 L, Hartley % (Auto) 18.0 H, Eos % (Auto) 3.1, Baso % (Auto) 0.6, Absolute Neuts (auto) 8.0 H, Absolute Lymphs (auto) 1.16, Nucleated RBC % 0, Differential Comment SCANNED, Diff Path Review March, Sodium 135 L, Potassium 4.6, Chloride 101, Carbon Dioxide 26.0, Anion Gap 8, BUN 85 H, Creatinine 6.95 H, Estim Creat Clear Calc 7.01, Est GFR (MDRD) Af Amer 10 L, Est GFR (MDRD) Non-Af 8 L, BUN/Creatinine Ratio 12.2, Glucose 135 H, Hemoglobin A1c 6.2 H, Calcium 8.9 06/20/23 06:09: POC Glucose 105 06/20/23 06:10: Blood Type A POSITIVE, Antibody Screen NEGATIVE 06/20/23 09:50: POC Glucose 87 Radiography Diagnostic Testing: Radiology Impression Hip/Pelvis X-Ray 06/20/23 07:57 IMPRESSION: 1. Fluoroscopic-guided intramedullary nailing of the right hip. Electronically Signed: Errol Shrestha MD at 9:57 EDT Reading Location ID and State: [facility] / [place] , Service support , Physical Exam Narrative alert, oriented x3, no apparent distress, average body habitus and healthy appearing General Appearance: cooperative, well kempt and well developed Orientation / Consciousness: awake, oriented to person, oriented to place and oriented to time HEENT normocephalic, head/scalp atraumatic and moist oral mucous membranes Eyes PERRL, EOMs intact bilaterally and conjunctivae normal Neck supple, no JVD, thyroid normal and no carotid bruits General: trachea midline Resp normal respiratory effort, no retractions, no use of accessory muscles and clear to auscultation bilaterally Auscultation: Negative for rales, rhonchi or wheezes Cardio regular rate, regular rhythm, S1 normal heart sound, S2 normal heart sound, no rub and no gallops Cardio Narrative: There is a 2/6 systolic murmur noted at the lower sternal border and apex, extrasystolic beats are noted GI normal to inspection, nondistended, normoactive bowel sounds, soft to palpation, non-tender and non-distended Extremity no clubbing, cyanosis or edema Skin no rashes or lesions noted General Skin Exam: no breakdown Neuro oriented x3, CN's II-XII intact bilaterally, no focal motor deficits and no sensory deficits noted Sensorium / Orientation: awake, alert, oriented to person, oriented to place and oriented to time Speech: speech normal Psych affect normal Assessment & Plan Assessment/Plan (1) ESRD (end stage renal disease): (2) Closed right hip fracture: QUALIFIERS: Encounter type: initial encounter Qualified Code(s): S72.001A - Fracture of unspecified part of neck of right femur, initial encounter for closed fracture PLAN: Plan 1. Right intertrochanteric fracture,comminuted-secondary to osteoporosis postop day 0 ORIF with intramedullary nail-patient appears stable postop, Eliquis will be restarted tomorrow, patient will have dialysis tomorrow #2 underlying atrial fibrillation with underlying ventricular paced rhythm-again patient will remain off Eliquis until tomorrow #3 coronary artery disease-patient is stable at this time and will remain on his present medications, stress test on 09/08/2022 showed no evidence of ischemia #4 end-stage renal disease with chronic dialysis-nephrology is participating in his care, dialysis days are Wednesday and Wednesday #5 ischemic cardiomyopathy-patient's last echocardiogram on 09/08/2022 showed an ejection fraction of 40%, patient remains on his present medications #6 pulmonary wnfxqtyvclen-ftsfiwqu-pquriad will remain on his present medication #7 essential hypertension-patient will remain on his present medications #8 chronic debility-patient states he has been at an extended care facility since January 2023 #9 iron deficiency anemia-I will administer Venofer today Patient will require precertification to return to his extended care facility under skilled services, I anticipate this will not be obtained until Wednesday or Wednesday of this week Total clinical time spent by myself addressing the patient's medical issues, reviewing all of the data, and collaborating with patient's care team: 35 minutes Charges/Coding Visit Charges Inpatient E&M: 02784 Subs Hosp L2
[2023-06-20] MEDS: Tamsulosin HCl 0.4 MG Capsule PO (16:46)
[2023-06-20] MEDS: Cefazolin 1 GM/50 ML BAG IV ×2 (16:46→23:41)
[2023-06-20] MEDS: 0.9% Saline Lock 10 ML Syringe IV (16:47)
--- NOTE | 2023-06-20 18:33 | NURSING ---
Reviewed charting with Quin Doe RN
[2023-06-20] MEDS: Mirtazapine 30 MG Tablet PO (22:06)
--- NOTE | 2023-06-20 22:59 | NURSING ---
Attempted to get pt out of bed pt was able to sit at side of bed only. Stated he felt too dizzy to get out of bed. Pt requested to wait to get to the chair until morning.
[2023-06-21] VITALS (16 sets, daily range): BP systolic 114–214; BP diastolic 38–102; PULSE 52–94; RESP 14–18; TEMP 36.4–37.4; O2SAT 83–100; BMI 33.2; BMI 33.3; BMI 32.9
[2023-06-21] MEDS: oxyCODONE 5 MG Tablet PO ×3 (04:08→21:43)
[2023-06-21] MEDS: Isosorbide DN 20 MG Tablet PO ×3 (05:44→21:31)
--- NOTE | 2023-06-21 08:51 | PN.HOSP_ITS ---
Reason for Visit Reason for Visit: Diagnoses End stage renal disease (06/17/23) Fracture of unspecified part of neck of right femur, initial encounter for closed fracture (06/17/23) Subjective Subjective Patient is an 82-year-old gentleman resident at [facility] who presented with a fall with subsequent right hip pain imaging studies demonstrated right intertrochanteric fracture patient underwent ORIF on 06/20/2023 Objective Data Objective Data Vital Signs: Vital Signs Temp Pulse Resp BP Pulse Ox O2 Del Method O2 Flow Rate 97.9 F 60 18 129/60 H 95 Nasal Cannula 2 06/21/23 08:30 06/21/23 08:30 06/21/23 08:30 06/21/23 08:30 06/21/23 08:30 06/21/23 08:30 06/21/23 08:30 Oxygen Flow Rate (L/min) 2 Oxygen Delivery Method Nasal Cannula Weight: 90.6 kg Body Mass Index (BMI) 33.2 Intake & Output: Intake and Output for Last 24 Hours 06/19/23 06/20/23 06/21/23 23:59 23:59 23:59 Intake Total 1280 / 1400 1116.75 / 1116.75 200 / 200 Output Total 350 / 350 375 / 375 600 / 600 Balance 930 / 1050 741.75 / 741.75 -400 / -400 Lab / Micro Data 06/20/23 03:12 06/20/23 03:12 Labs: Laboratory Results - last 24 hr 06/20/23 09:50: POC Glucose 87 Radiography Diagnostic Testing: Radiology Impression Hip/Pelvis X-Ray 06/20/23 07:57 IMPRESSION: 1. Fluoroscopic-guided intramedullary nailing of the right hip. Electronically Signed: Errol Shrestha MD at 9:57 EDT Reading Location ID and State: [facility] / [place] , Service support , Physical Exam Narrative GENERAL: cooperative HEENT: Atraumatic; normocephalic EYES; Anicteric, Normal Conjunctiva NECK; supple, normal thyroid, RESPIRATORY: Diminished to auscultation CARDIOVASCULAR: Regular S1 S2, GI: soft, normoactive bowel sounds, : No Renal angle tenderness; EXTREMITIES: No edema, no clubbing, MUSCULOSKELETAL: no muscle wasting NEURO: Awake; no lateralizing signs. SKIN: No Rash PSYCH; Flat affect Assessment & Plan Assessment/Plan (1) ESRD (end stage renal disease): (2) Closed right hip fracture: QUALIFIERS: Encounter type: initial encounter Qualified Code(s): S72.001A - Fracture of unspecified part of neck of right femur, initial encounter for closed fracture PLAN: Plan Patient is an 82-year-old gentleman resident at [facility] facility who presented with a fall with subsequent right hip pain imaging studies demonstrated right intertrochanteric fracture patient underwent ORIF on 06/20/2023 1. Mechanical fall with Right intertrochanteric fracture,comminuted- Status post ORIF with intramedullary nail 2. Paroxysmal A-fib ? Patient was on apixaban held prior to patient surgery plan is to resume starting 06/21/2023 3. End-stage renal disease ? Patient is on dialysis on Wednesdays and Fridays [facility] 4. Conduction system disorder ? Status post pacemaker placement 5.Coronary artery disease ? With previous PCI with NYLA to right coronary artery with subsequent bypass 6. Ischemic cardiomyopathy ? With EF of 40%. Patient on recommended medications 7. Anemia - Secondary to chronic disorder monitoring H&H and transfuse if patient becomes symptomatic or hemoglobin falls below 7 8. Dyslipidemia -Patient is on statin therapy, continued at home dose 9. Diabetes mellitus type II -patient's oral hypoglycemics held. Placed on long acting insulin, Accu-Cheks a.c. and at bedtime and covered with sliding scale insulin 10. Physical deconditioning - Requested for PT OT eval and director social to assist with discharge planning 11. Hypertension - Blood pressure controlled, home medications continued with dose adjustment as needed 12. Pulmonary hypertension ? Remains stable 13. DVT prophylaxis ? On apixaban Time spent in the patient's overall evaluation,decision-making process, review of diagnostic data, adjustment of management, discussion with other providers, nursing nursing and ancillary staff involved in patient's care documentation, 50 Minutes Charges/Coding Visit Charges Inpatient E&M: 90305 [facility] L3
[2023-06-21] MEDS: PureFlow B 2K Dialysis Soln 1 BAG 6 BAG PF (09:00)
[2023-06-21] MEDS: 0.9% Normal Saline 1,000 ML IV.SOLN. 1000 ML OPERA.SITE (09:00)
--- NOTE | 2023-06-21 09:10 | CM.UR ---
Discharge Planning Updates sent to [facility]. Afia Torres, Discharge Planning
--- NOTE | 2023-06-21 10:13 | CASEMGMT ---
Discharge Planning Asked [facility] to begin pre-cert. Afia Torres, Discharge Planning Asst.
--- NOTE | 2023-06-21 11:59 | PCM.PN.ORT ---
Subjective Subjective patient is s/p right sided intertrochanteric short gamma nail with Dr. Rollins. Patient resting comfortably in bed. Rates pain 7/ 10 at rest. With movement 7/10. States taking Tylenol and oxycodone as needed and ice help to relieve pain. Patient has been up with therapy. Walking with the assit of a walker. Afebrile, no chest pain, shortness of breath, negative calf pain/ erythema, and no other signs of DVT. Objective Data Objective Data Vital Signs: Vital Signs Temp Pulse Resp BP Pulse Ox O2 Del Method O2 Flow Rate 97.9 F 62 18 135/94 H 93 Nasal Cannula 2 06/21/23 08:30 06/21/23 11:25 06/21/23 11:25 06/21/23 11:25 06/21/23 11:25 06/21/23 11:25 06/21/23 11:25 Oxygen Flow Rate (L/min) 2 Oxygen Delivery Method Nasal Cannula Weight: 89.811 kg Body Mass Index (BMI) 32.9 Intake & Output: Intake and Output for Last 24 Hours 06/19/23 06/20/23 06/21/23 23:59 23:59 23:59 Intake Total 1280 / 1400 1116.75 / 1116.75 200 / 200 Output Total 350 / 350 375 / 375 1530 / 1530 Balance 930 / 1050 741.75 / 741.75 -1330 / -1330 Lab / Micro Data 06/20/23 03:12 06/20/23 03:12 Physical Exam Narrative Patient resting comfortably in bed No signs of acute distress on nasal cannula Limb is warm to touch, Sensation intact throughout entire lower extremity, including saphenous, sural, superficial and deep peroneal, and tibial distribution. DP/PT pulses bounding. Dorsi plantarflexion with significant pain with passive movement. Dressing clear dry intact Calf nontender to palpation, no erythema, no edema. Negative Homans Assessment & Plan Assessment/Plan (1) Fracture of hip, right, closed: PLAN: Patient is status post right short gamma nail after intertrochanteric fracture 06/20/2023 1. Will continue PT today. WBAT 2. Patient will follow up for post op appointment 2 weeks postoperatively. This will need to be arranged. 3. WBC 11.9 acute reactive leukocytosis: no acute systemic signs of infection. will monitor, and likely self resolve. 4. H/H 8.2/26.1: post operavtive anemia secondary to acute blood loss intraoperatively. Patient is asymptomatic at this time. No intraoperative complications. will continue to monitor. no acute interventions. 5. DVT prophylaxis : Has resumed Eliquis 2.5 mg twice daily 6. Pain control: Would recommend to schedule tylenol 500mg 2 tablets TID as patient is very painful. and oxycodone 1-2 tablets every 4-6 hours only as needed for pain control. 7. ok to remove post op dressing. post op day 5 8. discharge per primary team. From an orthopedic standpoint patient is stable and okay for discharge when ready. (2) Status post open reduction and internal fixation (ORIF) of fracture:
[2023-06-21 12:17] LABS: Bedside Glucose 101 mg/dL (74-106)
[2023-06-21] MEDS: Ascorbic Acid 500 MG Tablet PO (14:10)
[2023-06-21] MEDS: Calcitriol 0.25 MCG Capsule PO (14:10)
[2023-06-21] MEDS: Calcium (Elemental) 500 MG Tablet PO (14:10)
[2023-06-21] MEDS: APIXABAN 2.5 MG TABLET (WCH) PO ×2 (14:11→21:30)
[2023-06-21] MEDS: Senna/Docusate Sodium 1 Tablet 2 TABLET PO ×2 (14:11→21:30)
[2023-06-21] MEDS: Pantoprazole Sodium 40 MG Tablet PO (14:11)
[2023-06-21] MEDS: Ferrous Sulfate 325 MG Tablet PO (14:11)
[2023-06-21] MEDS: Hydroxychloroquine 200 MG Tablet PO (14:11)
--- NOTE | 2023-06-21 15:32 | PCM.PN.REN ---
Subjective Subjective No new complaints Objective Data Objective Data Vital Signs: Vital Signs Temp Pulse Resp BP Pulse Ox O2 Del Method O2 Flow Rate 97.6 F L 60 16 144/57 H 96 Nasal Cannula 2 06/21/23 14:02 06/21/23 14:02 06/21/23 14:02 06/21/23 14:02 06/21/23 14:02 06/21/23 14:29 06/21/23 14:29 Oxygen Flow Rate (L/min) 2 Oxygen Delivery Method Nasal Cannula Weight: 89.811 kg Body Mass Index (BMI) 32.9 Intake & Output: Intake and Output for Last 24 Hours 06/19/23 06/20/23 06/21/23 23:59 23:59 23:59 Intake Total 1280 / 1400 1116.75 / 1116.75 200 / 200 Output Total 350 / 350 375 / 375 1530 / 1530 Balance 930 / 1050 741.75 / 741.75 -1330 / -1330 Lab / Micro Data 06/20/23 03:12 06/20/23 03:12 Labs: Laboratory Results - last 24 hr 06/21/23 11:50: POC Glucose 101 Physical Exam Narrative Alert, no apparent distress S1, S2, RRR Lung sounds clear anteriorly and posteriorly Abdomen soft, nontender No edema Tunneled HD catheter dressing clean, dry and intact Assessment & Plan Assessment/Plan (1) Fracture of hip, right, closed: (2) ESRD (end stage renal disease): (3) Anemia of chronic disease: PLAN: Plan This is a 82-year-old male with past medical history significant for ESRD on hemodialysis at [facility] who presented to the emergency room yesterday after he sustained a fall after transferring to wheelchair. Patient was found to have right hip fracture admitted for further evaluation and treatment. S/p surgery yesterday. Still complains of significant pain. Dialysis today. Possible discharge to rehab soon.
[2023-06-21 17:35] LABS: Bedside Glucose 110 mg/dL (74-106)
[2023-06-21] MEDS: Tamsulosin HCl 0.4 MG Capsule PO (18:52)
[2023-06-21] MEDS: Carvedilol 12.5 MG Tablet PO (21:30)
[2023-06-21] MEDS: Bumetanide 2 MG Tablet PO (21:30)
[2023-06-21] MEDS: Mirtazapine 30 MG Tablet PO (21:31)
[2023-06-21] MEDS: Nepro Liquid 120 ML LIQUID PO (21:32)
[2023-06-22] VITALS (9 sets, daily range): BP systolic 115–122; BP diastolic 30–48; PULSE 59–62; RESP 16; TEMP 36.8–37.2; O2SAT 93–100; BMI 32.7
[2023-06-22] MEDS: Isosorbide DN 20 MG Tablet PO ×3 (05:44→22:15)
[2023-06-22] MEDS: Nepro Liquid 120 ML LIQUID PO ×3 (05:44→22:16)
[2023-06-22 06:11] LABS: Absolute Lymphocyte Count 1.32 X10^3/uL (0.83-4.51); Absolute Neutrophil Count 7.7 X10^3/uL (2.0-7.7); Basophil# 0.05 X10^3/uL; Basophil% 0.4 % (0-1); Eosinophil# 0.71 X10^3/uL; Eosinophils% 5.9 % (0-5); Hematocrit 23.4 % (40-54); Hemoglobin 7.3 g/dL (13.0-16.5); Lymphocyte # 1.32 X10^3/ul (0.83-4.51); Lymphocyte % 10.9 % (19-41); Mean Corp Hgb Conc 31.2 g/dL (32-36); Mean Corpuscular Hgb 30.9 pg (27.0-32.0); Mean Corpuscular Volume 99.2 fL (80-94); Mean Platelet Vol. 10.1 fl (6.2-12.0); Monocyte# 2.22 X10^3/uL; Monocyte% 18.3 % (0-10); NRBC Flagged by Analyzer 0 % (0-5); Neutrophil # 7.71 X10^3/uL (2.7-7.7); Neutrophil % 63.6 % (47-70); POSITIVE DIFFERENTIAL YES; Platelet Count 181 K/mm3 (150-450); RBC Distribution Width CV 13.5 % (11.6-14.6); RBC Distribution Width SD 48.6 fl (35.1-43.9); Red Blood Count 2.36 M/mm3 (4.6-6.2); White Blood Count 12.1 K/mm3 (4.4-11.0)
[2023-06-22 06:27] LABS: Differential Indicated SCAN CRITERIA MET
[2023-06-22 06:58] LABS: Macrocytosis 1+
[2023-06-22 06:59] LABS: AST(SGOT) 17 U/L (15-37); Alanine Aminotransfer ALT/SGPT < 6 U/L (16-61); Albumin, Serum 2.3 g/dL (3.2-5.0); Alkaline Phosphatase 55 U/L (45-117); Anion Gap 9 (5-15); BUN 84 mg/dL (7-18); BUN/Creat Ratio 12.5 RATIO (10-20); Bilirubin, Direct 0.17 mg/dL (0.00-0.30); Calcium,Total 9.1 mg/dL (8.5-10.1); Chloride 100 mmol/L (98-107); EST Glomerular Filtration Rate 8 mL/min (>60); Est Glom Filt Rate - Afr Amer 10 mL/min (>60); Estimated Creatinine Clearance 7.27 ml/min; Glucose 111 mg/dL (74-106); Magnesium 2.2 mg/dL (1.6-2.6); Potassium 4.4 mmol/L (3.5-5.1); Protein, Total 6.3 g/dL (6.4-8.2); Sodium Level 135 mmol/L (136-145)
--- NOTE | 2023-06-22 08:23 | PN.HOSP_ITS ---
Reason for Visit Reason for Visit: Diagnoses Anemia in other chronic diseases classified elsewhere (06/17/23) End stage renal disease (06/17/23) Fracture of unspecified part of neck of right femur, initial encounter for clos ed fracture (06/17/23) Personal history of (healed) traumatic fracture (06/17/23) Other specified postprocedural states (06/17/23) Subjective Subjective Patient seen, hemoglobin down to 7.3. Objective Data Objective Data Vital Signs: Vital Signs Temp Pulse Resp BP Pulse Ox O2 Del Method O2 Flow Rate 98.2 F 59 L 16 116/48 L 100 Nasal Cannula 2 06/22/23 03:43 06/22/23 03:43 06/22/23 03:43 06/22/23 03:43 06/22/23 03:43 06/22/23 04:00 06/22/23 04:00 Oxygen Flow Rate (L/min) 2 Oxygen Delivery Method Nasal Cannula Weight: 89.2 kg Body Mass Index (BMI) 32.7 Intake & Output: Intake and Output for Last 24 Hours 06/20/23 06/21/23 06/22/23 23:59 23:59 23:59 Intake Total 1116.75 / 1116.75 1020 / 1020 140 / 140 Output Total 375 / 375 1930 / 1930 Balance 741.75 / 741.75 -910 / -910 140 / 140 Lab / Micro Data 06/22/23 05:44 06/22/23 05:44 Labs: Laboratory Results - last 24 hr 06/21/23 11:50: POC Glucose 101 06/21/23 17:11: POC Glucose 110 H 06/22/23 05:44: WBC 12.1 H, RBC 2.36 L, Hgb 7.3 L, Hct 23.4 L, MCV 99.2 H, MCH 30.9, MCHC 31.2 L, RDW Std Deviation 48.6 H, RDW Coeff of Saloni 13.5, Plt Count 181, MPV 10.1, Immature Gran % (Auto) 0.900, Neut % (Auto) 63.6, Lymph % (Auto) 10.9 L, [place] % (Auto) 18.3 H, Eos % (Auto) 5.9 H, Baso % (Auto) 0.4, Absolute Neuts (auto) 7.7, Absolute Lymphs (auto) 1.32, Nucleated RBC % 0, Diff Path Review May foll, Macrocytosis 1+, Sodium 135 L, Potassium 4.4, Chloride 100, Carbon Dioxide 26.0, Anion Gap 9, BUN 84 H, Creatinine 6.70 H, Estim Creat Clear Calc 7.27, Est GFR (MDRD) Af Amer 10 L, Est GFR (MDRD) Non-Af 8 L, BUN/Creatinine Ratio 12.5, Glucose 111 H, Calcium 9.1, Phosphorus 6.0 H, Magnesium 2.2, Total Bilirubin 0.40, Direct Bilirubin 0.17, AST 17, ALT < 6 L, Alkaline Phosphatase 55, Total Protein 6.3 L, Albumin 2.3 L, Globulin 4.0 Physical Exam Narrative GENERAL: cooperative HEENT: Atraumatic; normocephalic EYES; Anicteric, Normal Conjunctiva NECK; supple, normal thyroid, RESPIRATORY: Diminished to auscultation CARDIOVASCULAR: Regular S1 S2, GI: soft, normoactive bowel sounds, : No Renal angle tenderness; EXTREMITIES: No edema, no clubbing, MUSCULOSKELETAL: no muscle wasting NEURO: Awake; no lateralizing signs. SKIN: No Rash PSYCH; Flat affect Assessment & Plan Assessment/Plan (1) ESRD (end stage renal disease): (2) Closed right hip fracture: QUALIFIERS: Encounter type: initial encounter Qualified Code(s): S72.001A - Fracture of unspecified part of neck of right femur, initial encounter for closed fracture PLAN: Plan Patient is an 82-year-old gentleman resident at [facility] facility who presented with a fall with subsequent right hip pain imaging studies demonstrated right intertrochanteric fracture patient underwent ORIF on 06/20/2023 1. Mechanical fall with Right intertrochanteric fracture,comminuted- Status post ORIF with intramedullary nail 2. Paroxysmal A-fib ? Patient was on apixaban held prior to patient surgery plan is to resume starting 06/21/2023 3. End-stage renal disease ? Patient is on dialysis on Wednesdays and Fridays consult placed to nephrology for dialysis orders 4. Conduction system disorder ? Status post pacemaker placement 5.Coronary artery disease ? With previous PCI with NYLA to right coronary artery with subsequent bypass 6. Ischemic cardiomyopathy ? With EF of 40%. Patient on recommended medications 7. Anemia - Secondary to chronic disorder monitoring H&H and transfuse if patient becomes symptomatic or hemoglobin falls below 7 8. Dyslipidemia -Patient is on statin therapy, continued at home dose 9. Diabetes mellitus type II -patient's oral hypoglycemics held. Placed on long acting insulin, Accu-Cheks a.c. and at bedtime and covered with sliding scale insulin 10. Physical deconditioning - Requested for PT OT eval and social security assessor to assist with discharge planning 11. Hypertension - Blood pressure controlled, home medications continued with dose adjustment as needed 12. Pulmonary hypertension ? Remains stable 13. DVT prophylaxis ? On apixaban Time spent in the patient's overall evaluation,decision-making process, review of diagnostic data, adjustment of management, discussion with other providers, nursing nursing and ancillary staff involved in patient's care documentation, 35 Minutes Charges/Coding Visit Charges Inpatient E&M: 42286 Subs Hosp L2
[2023-06-22] MEDS: Hydroxychloroquine 200 MG Tablet PO (10:54)
[2023-06-22] MEDS: Calcitriol 0.25 MCG Capsule PO (10:54)
[2023-06-22] MEDS: Bumetanide 2 MG Tablet PO ×2 (10:54→22:16)
[2023-06-22] MEDS: Ferrous Sulfate 325 MG Tablet PO (10:54)
[2023-06-22] MEDS: Senna/Docusate Sodium 1 Tablet 2 TABLET PO ×2 (10:54→22:15)
[2023-06-22] MEDS: Carvedilol 12.5 MG Tablet PO ×2 (10:54→22:16)
[2023-06-22] MEDS: Pantoprazole Sodium 40 MG Tablet PO (10:54)
[2023-06-22] MEDS: APIXABAN 2.5 MG TABLET (WCH) PO ×2 (10:54→22:15)
[2023-06-22] MEDS: Ascorbic Acid 500 MG Tablet PO (10:55)
[2023-06-22] MEDS: Calcium (Elemental) 500 MG Tablet PO (10:59)
[2023-06-22] MEDS: Acetaminophen 325 MG Tablet 650 MG PO (11:07)
[2023-06-22 11:34] LABS: Bedside Glucose 97 mg/dL (74-106)
[2023-06-22 15:29] LABS: Pathologist Review Reviewed
[2023-06-22] MEDS: Tamsulosin HCl 0.4 MG Capsule PO (18:36)
[2023-06-22] MEDS: Mirtazapine 30 MG Tablet PO (22:16)
[2023-06-22] MEDS: oxyCODONE 5 MG Tablet PO (22:22)
[2023-06-23] VITALS (15 sets, daily range): BP systolic 94–200; BP diastolic 46–88; PULSE 60–64; RESP 12–18; TEMP 36–37.1; O2SAT 95–100; BMI 32.8; BMI 32.1
[2023-06-23] MEDS: Isosorbide DN 20 MG Tablet PO ×2 (05:44→13:24)
[2023-06-23] MEDS: Nepro Liquid 120 ML LIQUID PO ×2 (05:45→13:25)
[2023-06-23 06:29] LABS: Absolute Lymphocyte Count 1.23 X10^3/uL (0.83-4.51); Absolute Neutrophil Count 6.6 X10^3/uL (2.0-7.7); Basophil# 0.06 X10^3/uL; Basophil% 0.6 % (0-1); Eosinophils% 5.7 % (0-5); Hematocrit 23.1 % (40-54); Hemoglobin 7.1 g/dL (13.0-16.5); Lymphocyte # 1.23 X10^3/ul (0.83-4.51); Lymphocyte % 11.7 % (19-41); Mean Corp Hgb Conc 30.7 g/dL (32-36); Mean Corpuscular Hgb 30.7 pg (27.0-32.0); Mean Platelet Vol. 10.2 fl (6.2-12.0); Monocyte# 1.85 X10^3/uL; Monocyte% 17.6 % (0-10); NRBC Flagged by Analyzer 0.2 % (0-5); Neutrophil # 6.63 X10^3/uL (2.7-7.7); Neutrophil % 63.2 % (47-70); POSITIVE DIFFERENTIAL YES; Platelet Count 199 K/mm3 (150-450); RBC Distribution Width CV 13.9 % (11.6-14.6); RBC Distribution Width SD 47.8 fl (35.1-43.9); Red Blood Count 2.31 M/mm3 (4.6-6.2); White Blood Count 10.5 K/mm3 (4.4-11.0)
[2023-06-23 06:42] LABS: Differential Indicated SCAN CRITERIA MET
[2023-06-23 06:50] LABS: Macrocytosis 1+
[2023-06-23 06:51] LABS: Anisocytosis 1+
[2023-06-23 07:03] LABS: Anion Gap 9 (5-15); BUN 104 mg/dL (7-18); Chloride 100 mmol/L (98-107); Creatinine, Serum 8.02 mg/dL (0.70-1.30); EST Glomerular Filtration Rate 7 mL/min (>60); Est Glom Filt Rate - Afr Amer 8 mL/min (>60); Estimated Creatinine Clearance 6.07 ml/min; Glucose 118 mg/dL (74-106); Potassium 4.4 mmol/L (3.5-5.1); Sodium Level 135 mmol/L (136-145)
--- NOTE | 2023-06-23 07:20 | PCM.PN.HOSP ---
Reason for Visit Reason for Visit: Diagnoses Anemia in other chronic diseases classified elsewhere (06/17/23) End stage renal disease (06/17/23) Fracture of unspecified part of neck of right femur, initial encounter for closed fracture (06/17/23) Personal history of (healed) traumatic fracture (06/17/23) Other specified postprocedural states (06/17/23) Subjective Subjective Patient seen currently undergoing dialysis. Hemoglobin down to 7.1. Awaiting transfer to senior living facility pending insurance approval Objective Data Objective Data Vital Signs: Vital Signs Temp Pulse Resp BP Pulse Ox O2 Del Method O2 Flow Rate 98.1 F 60 16 107/50 L 95 Nasal Cannula 2 06/23/23 04:12 06/23/23 04:12 06/23/23 04:12 06/23/23 04:12 06/23/23 04:12 06/23/23 04:12 06/23/23 04:12 Oxygen Flow Rate (L/min) 2 Oxygen Delivery Method Nasal Cannula Weight: 89.4 kg Body Mass Index (BMI) 32.8 Intake & Output: Intake and Output for Last 24 Hours 06/21/23 06/22/23 06/23/23 23:59 23:59 23:59 Intake Total 1020 / 1020 340 / 340 140 / 140 Output Total 1930 / 1930 150 / 150 50 / 50 Balance -910 / -910 190 / 190 90 / 90 Lab / Micro Data 06/23/23 05:41 06/23/23 05:41 Labs: Laboratory Results - last 24 hr 06/20/23 03:12: Diff Path Review Reviewed 06/22/23 10:47: POC Glucose 97 06/23/23 05:41: WBC 10.5, RBC 2.31 L, Hgb 7.1 L, Hct 23.1 L, MCV 100.0 H, MCH 30.7, MCHC 30.7 L, RDW Std Deviation 47.8 H, RDW Coeff of Saloni 13.9, Plt Count 199, MPV 10.2, Immature Gran % (Auto) 1.200 H, Neut % (Auto) 63.2, Lymph % (Auto) 11.7 L, [place] % (Auto) 17.6 H, Eos % (Auto) 5.7 H, Baso % (Auto) 0.6, Absolute Neuts (auto) 6.6, Absolute Lymphs (auto) 1.23, Nucleated RBC % 0.2, Anisocytosis 1+, Macrocytosis 1+, Sodium 135 L, Potassium 4.4, Chloride 100, Carbon Dioxide 26.0, Anion Gap 9, BUN 104 H*, Creatinine 8.02 H*, Estim Creat Clear Calc 6.07, Est GFR (MDRD) Af Amer 8 L, Est GFR (MDRD) Non-Af 7 L, BUN/Creatinine Ratio 13.0, Glucose 118 H, Calcium 9.0 Physical Exam Narrative GENERAL: cooperative HEENT: Atraumatic; normocephalic EYES; Anicteric, Normal Conjunctiva NECK; supple, normal thyroid, RESPIRATORY: Diminished to auscultation CARDIOVASCULAR: Regular S1 S2, GI: soft, normoactive bowel sounds, : No Renal angle tenderness; EXTREMITIES: No edema, no clubbing, MUSCULOSKELETAL: no muscle wasting NEURO: Awake; no lateralizing signs. SKIN: No Rash PSYCH; Flat affect Assessment & Plan Assessment/Plan (1) ESRD (end stage renal disease): (2) Closed right hip fracture: QUALIFIERS: Encounter type: initial encounter Qualified Code(s): S72.001A - Fracture of unspecified part of neck of right femur, initial encounter for closed fracture PLAN: Plan Patient is an 82-year-old gentleman resident at [facility] [place] facility who presented with a fall with subsequent right hip pain imaging studies demonstrated right intertrochanteric fracture patient underwent ORIF on 06/20/2023 1. Mechanical fall with Right intertrochanteric fracture,comminuted- Status post ORIF with intramedullary nail ? 06/23/2023 PT OT as tolerated with plans for patient to be discharged to senior living facility once insurance precertification is obtained 2. Paroxysmal A-fib ? Patient was on apixaban held prior to patient surgery plan is to resume starting 06/21/2023 3. End-stage renal disease ? Patient is on dialysis on Wednesdays and Fridays consult placed to nephrology for dialysis orders 4. Conduction system disorder ? Status post pacemaker placement 5.Coronary artery disease ? With previous PCI with NYLA to right coronary artery with subsequent bypass 6. Ischemic cardiomyopathy ? With EF of 40%. Patient on recommended medications 7. Anemia - Secondary to chronic disorder monitoring H&H and transfuse if patient becomes symptomatic or hemoglobin falls below 7 8. Dyslipidemia -Patient is on statin therapy, continued at home dose 9. Diabetes mellitus type II -patient's oral hypoglycemics held. Placed on long acting insulin, Accu-Cheks a.c. and at bedtime and covered with sliding scale insulin 10. Physical deconditioning - Requested for PT OT eval and social worker aide to assist with discharge planning 11. Hypertension - Blood pressure controlled, home medications continued with dose adjustment as needed 12. Pulmonary hypertension ? Remains stable 13. DVT prophylaxis ? On apixaban Time spent in the patient's overall evaluation,decision-making process, review of diagnostic data, adjustment of management, discussion with other providers, nursing nursing and ancillary staff involved in patient's care documentation, 35 Minutes Charges/Coding Visit Charges Inpatient E&M: 07212 Subs Hosp L2
--- NOTE | 2023-06-23 08:02 | CASEMGMT ---
Discharge Planning Requested updates for pre-cert sent to [facility] via [facility]. Afia Torres, Discharge Planning Asst.
[2023-06-23] MEDS: 0.9% Normal Saline 1,000 ML IV.SOLN. 1000 ML OPERA.SITE (08:08)
[2023-06-23] MEDS: PureFlow B 2K Dialysis Soln 1 BAG 6 BAG PF (08:09)
[2023-06-23] MEDS: 0.9% Saline Lock 10 ML Syringe IV ×2 (08:10→10:57)
[2023-06-23] MEDS: Pantoprazole Sodium 40 MG Tablet PO (11:50)
[2023-06-23] MEDS: Ascorbic Acid 500 MG Tablet PO (11:50)
[2023-06-23] MEDS: Senna/Docusate Sodium 1 Tablet 2 TABLET PO (11:51)
[2023-06-23] MEDS: APIXABAN 2.5 MG TABLET (WCH) PO (11:51)
[2023-06-23] MEDS: Calcium (Elemental) 500 MG Tablet PO (11:52)
[2023-06-23] MEDS: Calcitriol 0.25 MCG Capsule PO (11:52)
[2023-06-23] MEDS: Hydroxychloroquine 200 MG Tablet PO (11:52)
[2023-06-23] MEDS: Ferrous Sulfate 325 MG Tablet PO (11:52)
--- NOTE | 2023-06-23 11:55 | DS.PCM_ITS ---
Providers Date of Admission: 06/17/23 Date of Discharge: 06/23/23 Primary Care Physician: Dr. Bry Patel MD Consultations 06/17/23 14:06 Consult: Nephrology Routine Consulting Provider: Marialuisa Harrington Reason for Consult: ESRD on HD EMERGENT Consult: No Notified: Yes Date Notified: 06/17/23 Time Notified: 14:07 Method of Notification: Text Consult: Orthopedics Routine Consulting Provider: Charles Rollins Reason for Consult: RIGHT hip fracture EMERGENT Consult: No Notified: Yes Date Notified: 06/17/23 Time Notified: 14:08 Method of Notification: ED Physician Initiated Reason For Visit: RIGHT HIP FRACTURE WITH HYPOTENSION Diagnosis Discharge Diagnosis (1) ESRD (end stage renal disease): Status: Acute Code(s): N18.6 - End stage renal disease (2) Closed right hip fracture: Status: Acute Code(s): S72.001A - Fracture of unspecified part of neck of right femur, initial encounter for closed fracture Qualifiers: Encounter type: initial encounter Qualified Code(s): S72.001A - Fracture of unspecified part of neck of right femur, initial encounter for closed fracture Plan Patient is an 82-year-old gentleman resident at [facility] who presented with a fall with subsequent right hip pain imaging studies demonstrated right intertrochanteric fracture patient underwent ORIF on 06/20/2023 1. Mechanical fall with Right intertrochanteric fracture,comminuted- Status post ORIF with intramedullary nail ? 06/23/2023 PT OT as tolerated with plans for patient to be discharged to [facility] facility once insurance precertification is obtained 2. Paroxysmal A-fib ? Patient was on apixaban held prior to patient surgery plan is to resume starting 06/21/2023 3. End-stage renal disease ? Patient is on dialysis on Wednesdays and Fridays consult placed to nephrology for dialysis orders 4. Conduction system disorder ? Status post pacemaker placement 5.Coronary artery disease ? With previous PCI with NYLA to right coronary artery with subsequent bypass 6. Ischemic cardiomyopathy ? With EF of 40%. Patient on recommended medications 7. Anemia - Secondary to chronic disorder monitoring H&H and transfuse if patient becomes symptomatic or hemoglobin falls below 7 8. Dyslipidemia -Patient is on statin therapy, continued at home dose 9. Diabetes mellitus type II -patient's oral hypoglycemics held. Placed on long acting insulin, Accu-Cheks a.c. and at bedtime and covered with sliding scale insulin 10. Physical deconditioning - Requested for PT OT eval and social services specialist to assist with discharge planning 11. Hypertension - Blood pressure controlled, home medications continued with dose adjustment as needed 12. Pulmonary hypertension ? Remains stable 13. DVT prophylaxis ? On apixaban Time spent in the patient's overall evaluation,decision-making process, review of diagnostic data, adjustment of management, discussion with other providers, nursing nursing and ancillary staff involved in patient's care documentation, 35 Minutes Medications at Discharge Home Medications aspirin 81 mg chewable tablet 81 mg PO DAILY@0800 blood thinner 03/10/14 hydroxychloroquine 200 mg tablet 200 mg PO DAILY arthritis 09/26/20 apixaban 2.5 mg tablet (Eliquis) 2.5 mg PO BID A fib 09/08/21 calcium carbonate 500 mg calcium (1,250 mg) tablet 500 mg PO DAILY SUPPLEMENT 09/08/21 mirtazapine 45 mg tablet 45 mg PO DAILY MOOD 09/08/21 ferrous sulfate 325 mg (65 mg iron) tablet 325 mg PO DAILY iron supplement 08/21/22 tamsulosin 0.4 mg capsule 0.4 mg PO DAILY prostate 08/21/22 isosorbide dinitrate 20 mg tablet 20 mg PO TID HEART #270 tabs 08/25/22 atorvastatin 40 mg tablet 40 mg PO QHS BP 11/19/22 carvedilol 12.5 mg tablet 12.5 mg PO BID BP 11/19/22 pantoprazole 40 mg tablet,delayed release 40 mg PO DAILY GERD 11/19/22 bumetanide 2 mg tablet 2 mg PO Q12H 12/25/22 acetaminophen 325 mg capsule 650 mg PO Q4H PRN fever or pain 06/17/23 aluminum-magnesium hydroxide 225 mg-200 mg/5 mL oral suspension 30 ml PO Q4H PRN PRN GI DISTRESS 06/17/23 ascorbic acid (vitamin C) 500 mg capsule 500 mg PO DAILY 06/17/23 bisacodyl 10 mg rectal suppository 10 mg [place] DAILY PRN constipation 06/17/23 calcitriol 0.25 mcg capsule 0.25 mcg PO DAILY 06/17/23 dextrose 40 % oral gel 15 g PO Q15M PRN hypoglycemia 06/17/23 glucagon HCl 1 mg solution for injection (Glucagon (HCl) Emergency Kit) 1 mg IM Q20M PRN hypoglycemia 06/17/23 guaifenesin 100 mg/5 mL oral liquid (Adult Tussin Chest Congestion) 200 mg PO Q4H PRN congestion 06/17/23 insulin lispro 100 unit/mL subcutaneous pen (Humalog KwikPen (U-100) Insulin) 5 unit subcut DAILY 06/17/23 loperamide 2 mg tablet 2 - 4 mg PO Q2H PRN loose stool 06/17/23 magnesium hydroxide 400 mg/5 mL oral suspension (Milk of Magnesia) 30 ml PO DAILY PRN constipation 06/17/23 psyllium husk 3.4 gram/5.4 gram oral powder (Shruti-Mucil) 1 tsp PO DAILY PRN CONSTIATION 06/17/23 sodium phosphates 19 gram-7 gram/118 mL enema (Enema) 118 ml [place] DAILY PRN constipation 06/17/23 torsemide 20 mg tablet 20 mg PO DAILY 06/17/23 glucagon 1 mg solution for injection (Glucagon Emergency Kit) 1 mg IM X1 PRN Hyp oglycemia #0 ea 06/23/23 insulin lispro 100 unit/mL subcutaneous pen (Humalog KwikPen (U-100) Insulin) See Protocol subcut ACHS #0 mL 06/23/23 iron 150 mg-vit C 60 mg-folate 1 [id number] tablet (Niferex (Sumalate-Quatrefolic)) 1 tab PO DAILY #30 tabs 06/23/23 lorazepam 0.5 mg tablet 0.5 mg PO QHS anxiety 3 days #3 tabs 06/23/23 nut.tx.imp.renal fxn,lac-reduc 0.08 gram-1.8 kcal/mL oral liquid (Nepro Carb Steady) 120 ml PO TID #0 mL 06/23/23 oxycodone 5 mg tablet 5 mg PO Q4H PRN PRN Pain Score 4-10 3 days #14 tabs 06/23/23 sennosides 8.6 mg-docusate sodium 50 mg tablet (Stool Softener-Stimulant Laxative) 2 tab PO BID #0 tabs 06/23/23 Hospital Course Summary of Care Provided Minutes Spent on Discharge: 35 Physical Exam Narrative GENERAL: cooperative HEENT: Atraumatic; normocephalic EYES; Anicteric, Normal Conjunctiva NECK; supple, normal thyroid, RESPIRATORY: Diminished to auscultation CARDIOVASCULAR: Regular S1 S2, GI: soft, normoactive bowel sounds, : No Renal angle tenderness; EXTREMITIES: No edema, no clubbing, MUSCULOSKELETAL: no muscle wasting NEURO: Awake; no lateralizing signs. SKIN: No Rash PSYCH; Flat affect Weight / BMI Weight Weight: 87.5 kg Body Mass Index (BMI) 32.1 ABG / Lab / Microbiology Data 06/23/23 05:41 06/23/23 05:41 Laboratory: Laboratory Results - last 24 hr 06/20/23 03:12: Diff Path Review Reviewed 06/23/23 05:41: WBC 10.5, RBC 2.31 L, Hgb 7.1 L, Hct 23.1 L, MCV 100.0 H, MCH 30.7, MCHC 30.7 L, RDW Std Deviation 47.8 H, RDW Coeff of Saloni 13.9, Plt Count 199, MPV 10.2, Immature Gran % (Auto) 1.200 H, Neut % (Auto) 63.2, Lymph % (Auto) 11.7 L, [place] % (Auto) 17.6 H, Eos % (Auto) 5.7 H, Baso % (Auto) 0.6, Absolute Neuts (auto) 6.6, Absolute Lymphs (auto) 1.23, Nucleated RBC % 0.2, Anisocytosis 1+, Macrocytosis 1+, Sodium 135 L, Potassium 4.4, Chloride 100, Carbon Dioxide 26.0, Anion Gap 9, BUN 104 H*, Creatinine 8.02 H*, Estim Creat Clear Calc 6.07, Est GFR (MDRD) Af Amer 8 L, Est GFR (MDRD) Non-Af 7 L, BUN/Creatinine Ratio 13.0, Glucose 118 H, Calcium 9.0 D/C Instructions Discharge Diet: Renal Diet Discharge Activity: Return to Normal Activity Call your doctor if you observe: Fever of 101 or Higher, Shortness of breath, Fainting spells and Chest pain Meaningful Use Info Meaningful Use Diagnoses (Choose all that apply): None applicable Discharge Plan Admission Admit Date/Time: 06/17/23 13:32 Attending Provider: Karl Aceves Primary Care Provider: Bry Patel Consulting Providers: Zacarias Lee; Marialuisa Harrington; Charles Rollins; Colt Herrera Discharge Orders/Prescriptions Prescriptions: New sennosides-docusate sodium [Stool Softener-Stimulant Laxat] 8.6-50 mg Tablet 2 tab PO BID Qty: 0 0RF oxycodone 5 mg Tablet 5 mg PO Q4H PRN PRN (Reason: Pain Score 4-10) 3 Days Qty: 14 0RF insulin lispro [Humalog KwikPen Insulin] 100 unit/mL Insulin Pen See Protocol subcut ACHS Qty: 0 0RF Protocol: 4. Sliding Scale Insulin High-Med Dosing Condition: 150-199 mg/dl = 2 units Condition: 200-259 mg/dl = 4 units Condition: 260-324 mg/dl = 6 units Condition: 325-374 mg/dl = 8 units Condition: 375-409 mg/dl = 10 units Condition: 410-449 mg/dl = 11 units Condition: Greater than 449 call physician Protocol Text: - Use for Total Daily Dose of Insulin 56-80 units - Patient who are insulin resistant or septic HIGH MEDIUM DOSING ALGORITHM Nepro Carb Steady 0.08 gram-1.8 kcal/mL Liquid 120 ml PO TID Qty: 0 0RF Glucagon Emergency Kit (human) 1 mg Recon Soln 1 mg IM X1 PRN (Reason: Hypoglycemia) Qty: 0 0RF Niferex (Sumalate-Quatrefolic) 150 mg iron- 60 mg-1 mg tablet 1 tab PO DAILY Qty: 30 0RF Continued tamsulosin 0.4 mg capsule 0.4 mg PO DAILY bumetanide 2 mg tablet 2 mg PO Q12H Rx Instructions: HOLD on dialysis days only aspirin 81 MG tablet,chewable 81 mg PO DAILY@0800 Hold Instructions: Resume on 11/19/21. Patient Comments: LAST DOSE 10/30/21 hydroxychloroquine 200 MG tablet 200 mg PO DAILY ferrous sulfate 325 mg (65 mg iron) tablet 325 mg PO DAILY mirtazapine 45 mg tablet 45 mg PO DAILY Patient Comments: Take 1 tablet by mouth at bedtime Eliquis 2.5 mg tablet 2.5 mg PO BID Hold Instructions: Resume on 11/19/21. Patient Comments: LAST DOSE 10/30/21 calcium carbonate 500 mg calcium (1,250 mg) Tablet 500 mg PO DAILY atorvastatin 40 MG tablet 40 mg PO QHS carvedilol 12.5 MG tablet 12.5 mg PO BID pantoprazole 40 MG tablet,delayed release (DR/EC) 40 mg PO DAILY acetaminophen 325 mg capsule 650 mg PO Q4H PRN (Reason: fever or pain) aluminum-magnesium hydroxide 225-200 mg/5 mL suspension 30 ml PO Q4H PRN PRN (Reason: GI DISTRESS) bisacodyl 10 mg suppository 10 mg [place] DAILY PRN (Reason: constipation) calcitriol 0.25 mcg capsule 0.25 mcg PO DAILY Enema 19-7 gram/118 mL enema 118 ml [place] DAILY PRN (Reason: constipation) glucagon HCl [Glucagon (HCl) Emergency Kit] 1 mg recon soln 1 mg IM Q20M PRN (Reason: hypoglycemia) Rx Instructions: until target blood sugar attained dextrose 40 % gel 15 g PO Q15M PRN (Reason: hypoglycemia) Rx Instructions: until symptoms of low blood sugar are controlled guaifenesin [Adult Tussin Chest Congestion] 100 mg/5 mL liquid 200 mg PO Q4H PRN (Reason: congestion) insulin lispro [Humalog KwikPen Insulin] 100 unit/mL insulin pen 5 unit subcut DAILY loperamide 2 mg tablet 2 - 4 mg PO Q2H PRN (Reason: loose stool) Rx Instructions: NO MORE THAN 4 TABS IN 24 HOURS magnesium hydroxide [Milk of Magnesia] 400 mg/5 mL suspension 30 ml PO DAILY PRN (Reason: constipation) Shruti-Mucil 3.4 gram/5.4 gram powder 1 tsp PO DAILY PRN (Reason: CONSTIATION) Rx Instructions: mix into at least 4 oz water or juice before administering torsemide 20 mg tablet 20 mg PO DAILY ascorbic acid (vitamin C) 500 mg capsule 500 mg PO DAILY lorazepam 0.5 mg Tablet 0.5 mg PO QHS 3 Days Qty: 3 0RF isosorbide dinitrate 20 mg tablet 20 mg PO TID Qty: 270 3RF Discontinued tramadol 50 mg Tablet 50 mg PO Q12H PRN (Reason: Pain) potassium chloride 20 mEq tablet extended release 40 meq PO DAILY 30 Days Qty: 60 0RF acetaminophen 650 mg suppository 650 mg KY Q4H PRN (Reason: fever or pain) glipizide 5 mg tablet 5 mg PO DAILY Referrals / Follow Up: Patel,Bry, MD [Primary Care Provider] - In 1 Week Marialuisa Harrington MD [Med Staff - Consulting] - In 1 Week Charles Rollins MD [Med Staff - Active Staff] - Within 2 Weeks Disposition Disposition (needs filled in before D/C Order can be placed): [facility]
[2023-06-23 11:59] LABS: Bedside Glucose 102 mg/dL (74-106)
--- NOTE | 2023-06-23 12:09 | PCM.TXEXTCAR ---
Diet Diet Order/Speech Therapy: 06/21/23 10:30 Diet: Renal - General Is pt able to select menu?: Yes Wound(s) right hip: Wound Type: Surgical Incision Therapies Physical Therapy: Eval and Treat Occupational Therapy: Eval and Treat Problem/Diagnosis (1) ESRD (end stage renal disease): Status: Acute Code(s): N18.6 - End stage renal disease (2) Closed right hip fracture: Status: Acute Code(s): S72.001A - Fracture of unspecified part of neck of right femur, initial encounter for closed fracture Plan Patient is an 82-year-old gentleman resident at [facility] who presented with a fall with subsequent right hip pain imaging studies demonstrated right intertrochanteric fracture patient underwent ORIF on 06/20/2023 1. Mechanical fall with Right intertrochanteric fracture,comminuted- Status post ORIF with intramedullary nail ? 06/23/2023 PT OT as tolerated with plans for patient to be discharged to senior care facility once insurance precertification is obtained 2. Paroxysmal A-fib ? Patient was on apixaban held prior to patient surgery plan is to resume starting 06/21/2023 3. End-stage renal disease ? Patient is on dialysis on Wednesdays and Fridays consult placed to nephrology for dialysis orders 4. Conduction system disorder ? Status post pacemaker placement 5.Coronary artery disease ? With previous PCI with NYLA to right coronary artery with subsequent bypass 6. Ischemic cardiomyopathy ? With EF of 40%. Patient on recommended medications 7. Anemia - Secondary to chronic disorder monitoring H&H and transfuse if patient becomes symptomatic or hemoglobin falls below 7 8. Dyslipidemia -Patient is on statin therapy, continued at home dose 9. Diabetes mellitus type II -patient's oral hypoglycemics held. Placed on long acting insulin, Accu-Cheks a.c. and at bedtime and covered with sliding scale insulin 10. Physical deconditioning - Requested for PT OT eval and social work case manager to assist with discharge planning 11. Hypertension - Blood pressure controlled, home medications continued with dose adjustment as needed 12. Pulmonary hypertension ? Remains stable 13. DVT prophylaxis ? On apixaban Time spent in the patient's overall evaluation,decision-making process, review of diagnostic data, adjustment of management, discussion with other providers, nursing nursing and ancillary staff involved in patient's care documentation, 35 Minutes Allergies/Procedures Done in Hospital Allergies amiodarone Allergy (Mild, Verified 06/17/23 11:36) PT UNSURE OF REACTION simvastatin Allergy (Mild, Verified 06/17/23 11:36) Other lovastatin [From Advicor] Allergy (Unknown, Verified 06/17/23 11:36) UNKNOWN niacin [From Advicor] Allergy (Unknown, Verified 06/17/23 11:36) UNKNOWN pravastatin [From Pravachol] Allergy (Unknown, Verified 06/17/23 11:36) UNKNOWN hydralazine Allergy (Verified 06/17/23 11:36) PT UNSURE OF REACTION Influenza Virus Vaccines Allergy (Verified 06/17/23 11:36) Hives Penicillins Allergy (Verified 06/17/23 11:36) Rash rosuvastatin [From Crestor] Allergy (Verified 06/17/23 11:36) PT UNSURE OF REACTION Type of Care/Length of Stay Estimated LOS: More Than 30 Days Type of Care Needed: Intermediate Rehab Potential: Fair Prognosis: Fair Additional Orders/Day of Discharge Day of Discharge: 06/23/23 Dietary and Speech Recommendations Dietitian Recommendations/Changes: RD will adjust diet to 1800kcal CCD/Renal diet to mange medical conditions. RD will increase Nepro supplements to TID to provide supplemental energy. Discharge Plan Admission Admit Date/Time: 06/17/23 13:32 Attending Provider: Karl Aceves Primary Care Provider: Bry Patel Consulting Providers: Zacarias Lee; Marialuisa Harrington; Charles Rollins; Colt Herrera Discharge Orders/Prescriptions Prescriptions: New sennosides-docusate sodium [Stool Softener-Stimulant Laxat] 8.6-50 mg Tablet 2 tab PO BID Qty: 0 0RF oxycodone 5 mg Tablet 5 mg PO Q4H PRN PRN (Reason: Pain Score 4-10) 3 Days Qty: 14 0RF insulin lispro [Humalog KwikPen Insulin] 100 unit/mL Insulin Pen See Protocol subcut ACHS Qty: 0 0RF Protocol: 4. Sliding Scale Insulin High-Med Dosing Condition: 150-199 mg/dl = 2 units Condition: 200-259 mg/dl = 4 units Condition: 260-324 mg/dl = 6 units Condition: 325-374 mg/dl = 8 units Condition: 375-409 mg/dl = 10 units Condition: 410-449 mg/dl = 11 units Condition: Greater than 449 call physician Protocol Text: - Use for Total Daily Dose of Insulin 56-80 units - Patient who are insulin resistant or septic HIGH MEDIUM DOSING ALGORITHM Nepro Carb Steady 0.08 gram-1.8 kcal/mL Liquid 120 ml PO TID Qty: 0 0RF Glucagon Emergency Kit (human) 1 mg Recon Soln 1 mg IM X1 PRN (Reason: Hypoglycemia) Qty: 0 0RF Niferex (Sumalate-Quatrefolic) 150 mg iron- 60 mg-1 mg tablet 1 tab PO DAILY Qty: 30 0RF Continued tamsulosin 0.4 mg capsule 0.4 mg PO DAILY bumetanide 2 mg tablet 2 mg PO Q12H Rx Instructions: HOLD on dialysis days only aspirin 81 MG tablet,chewable 81 mg PO DAILY@0800 Hold Instructions: Resume on 11/19/21. Patient Comments: LAST DOSE 10/30/21 hydroxychloroquine 200 MG tablet 200 mg PO DAILY ferrous sulfate 325 mg (65 mg iron) tablet 325 mg PO DAILY mirtazapine 45 mg tablet 45 mg PO DAILY Patient Comments: Take 1 tablet by mouth at bedtime Eliquis 2.5 mg tablet 2.5 mg PO BID Hold Instructions: Resume on 11/19/21. Patient Comments: LAST DOSE 10/30/21 calcium carbonate 500 mg calcium (1,250 mg) Tablet 500 mg PO DAILY atorvastatin 40 MG tablet 40 mg PO QHS carvedilol 12.5 MG tablet 12.5 mg PO BID pantoprazole 40 MG tablet,delayed release (DR/EC) 40 mg PO DAILY acetaminophen 325 mg capsule 650 mg PO Q4H PRN (Reason: fever or pain) aluminum-magnesium hydroxide 225-200 mg/5 mL suspension 30 ml PO Q4H PRN PRN (Reason: GI DISTRESS) bisacodyl 10 mg suppository 10 mg [place] DAILY PRN (Reason: constipation) calcitriol 0.25 mcg capsule 0.25 mcg PO DAILY Enema 19-7 gram/118 mL enema 118 ml [place] DAILY PRN (Reason: constipation) glucagon HCl [Glucagon (HCl) Emergency Kit] 1 mg recon soln 1 mg IM Q20M PRN (Reason: hypoglycemia) Rx Instructions: until target blood sugar attained dextrose 40 % gel 15 g PO Q15M PRN (Reason: hypoglycemia) Rx Instructions: until symptoms of low blood sugar are controlled guaifenesin [Adult Tussin Chest Congestion] 100 mg/5 mL liquid 200 mg PO Q4H PRN (Reason: congestion) insulin lispro [Humalog KwikPen Insulin] 100 unit/mL insulin pen 5 unit subcut DAILY loperamide 2 mg tablet 2 - 4 mg PO Q2H PRN (Reason: loose stool) Rx Instructions: NO MORE THAN 4 TABS IN 24 HOURS magnesium hydroxide [Milk of Magnesia] 400 mg/5 mL suspension 30 ml PO DAILY PRN (Reason: constipation) Shruti-Mucil 3.4 gram/5.4 gram powder 1 tsp PO DAILY PRN (Reason: CONSTIATION) Rx Instructions: mix into at least 4 oz water or juice before administering torsemide 20 mg tablet 20 mg PO DAILY ascorbic acid (vitamin C) 500 mg capsule 500 mg PO DAILY lorazepam 0.5 mg Tablet 0.5 mg PO QHS 3 Days Qty: 3 0RF isosorbide dinitrate 20 mg tablet 20 mg PO TID Qty: 270 3RF Discontinued tramadol 50 mg Tablet 50 mg PO Q12H PRN (Reason: Pain) potassium chloride 20 mEq tablet extended release 40 meq PO DAILY 30 Days Qty: 60 0RF acetaminophen 650 mg suppository 650 mg [place] Q4H PRN (Reason: fever or pain) glipizide 5 mg tablet 5 mg PO DAILY Referrals / Follow Up: Bry Patel MD [Primary Care Provider] - In 1 Week Disposition Disposition (needs filled in before D/C Order can be placed): Residential Facility (2) Closed right hip fracture Qualifiers: Encounter type: initial encounter Qualified Code(s): S72.001A - Fracture of unspecified part of neck of right femur, initial encounter for closed fracture
--- NOTE | 2023-06-23 12:50 | PN.RENAL_ITS ---
Subjective Subjective No new events Objective Data Objective Data Vital Signs: Vital Signs Temp Pulse Resp BP Pulse Ox O2 Del Method O2 Flow Rate 97.6 F L 61 12 94/69 97 Nasal Cannula 2 06/23/23 11:30 06/23/23 11:30 06/23/23 11:30 06/23/23 11:46 06/23/23 11:30 06/23/23 11:30 06/23/23 11:30 Oxygen Flow Rate (L/min) 2 Oxygen Delivery Method Nasal Cannula Weight: 87.5 kg Body Mass Index (BMI) 32.1 Intake & Output: Intake and Output for Last 24 Hours 06/21/23 06/22/23 06/23/23 23:59 23:59 23:59 Intake Total 1020 / 1020 340 / 340 480 / 480 Output Total 1930 / 1930 150 / 150 3450 / 3450 Balance -910 / -910 190 / 190 -2970 / -2970 Lab / Micro Data 06/23/23 05:41 06/23/23 05:41 Labs: Laboratory Results - last 24 hr 06/20/23 03:12: Diff Path Review Reviewed 06/23/23 05:41: WBC 10.5, RBC 2.31 L, Hgb 7.1 L, Hct 23.1 L, MCV 100.0 H, MCH 30.7, MCHC 30.7 L, RDW Std Deviation 47.8 H, RDW Coeff of Saloni 13.9, Plt Count 199, MPV 10.2, Immature Gran % (Auto) 1.200 H, Neut % (Auto) 63.2, Lymph % (Auto) 11.7 L, Pope % (Auto) 17.6 H, Eos % (Auto) 5.7 H, Baso % (Auto) 0.6, Absolute Neuts (auto) 6.6, Absolute Lymphs (auto) 1.23, Nucleated RBC % 0.2, Anisocytosis 1+, Macrocytosis 1+, Sodium 135 L, Potassium 4.4, Chloride 100, Carbon Dioxide 26.0, Anion Gap 9, BUN 104 H*, Creatinine 8.02 H*, Estim Creat Clear Calc 6.07, Est GFR (MDRD) Af Amer 8 L, Est GFR (MDRD) Non-Af 7 L, BUN/Creatinine Ratio 13.0, Glucose 118 H, Calcium 9.0 08/09/23 11:38: POC Glucose 102 Physical Exam Narrative Alert, no apparent distress S1, S2, RRR Lung sounds clear anteriorly and posteriorly Abdomen soft, nontender No edema Tunneled HD catheter dressing clean, dry and intact Assessment & Plan Assessment/Plan (1) Fracture of hip, right, closed: (2) ESRD (end stage renal disease): (3) Anemia of chronic disease: PLAN: Plan This is a 82-year-old male with past medical history significant for ESRD on hemodialysis at [facility] who presented to the emergency room yesterday after he sustained a fall after transferring to wheelchair. Tamy ent was found to have right hip fracture admitted for further evaluation and treatment. Dialysis today, see orders. Possible discharge to rehab today or tomorrow. Anemia. Hemoglobin is lower. give PRBC if less than 7. Retacrit is on back order, will give long-acting erythropoietin at the dialysis unit on .
--- NOTE | 2023-06-23 13:05 | CASEMGMT ---
Discharge Planning Discharge orders, signed med list and transport time sent to [facility] via [facility]. [facility] will transport patient by cot at 2p. Patient, his granddauger, nursing and SW notified. Afia Torres, Discharge Planning Asst.
[2023-06-23 13:19] LABS: Pathologist Review Reviewed
[2023-06-23] MEDS: Acetaminophen 325 MG Tablet 650 MG PO (13:25)
== END 2023-06-23 15:10 | disposition skilled nursing facility (03) | DRG 480 ==
LOC: ED 14:13 → PCU 14:34
PROVIDERS: Anesthesiology; Internal Medicine; Orthopaedic Surgery; Physician Assistant; Admitting Provider Internal Medicine; Emergency Provider Emergency Medicine; PCP Family Medicine; Visit Provider Internal Medicine
PROC: 0QS606Z Reposition Right Upper Femur with Intramedullary Internal Fixation Device, Open Approach (ICD-10-PCS; CPT 27245; principal; 2023-06-20 07:00)
DX: S72.141A Displaced intertrochanteric fracture of right femur, initial encounter for closed fracture (principal); N18.6 End stage renal disease; I13.2 Hypertensive heart and chronic kidney disease with heart failure and with stage 5 chronic kidney disease, or end stage renal disease; I50.42 Chronic combined systolic (congestive) and diastolic (congestive) heart failure; I27.21 Secondary pulmonary arterial hypertension; D63.1 Anemia in chronic kidney disease; E11.22 Type 2 diabetes mellitus with diabetic chronic kidney disease; J44.9 Chronic obstructive pulmonary disease, unspecified; I48.0 Paroxysmal atrial fibrillation; Z99.2 Dependence on renal dialysis; Z79.4 Long term (current) use of insulin; M06.9 Rheumatoid arthritis, unspecified; F03.A0 Unspecified dementia, mild, without behavioral disturbance, psychotic disturbance, mood disturbance, and anxiety; I35.2 Nonrheumatic aortic (valve) stenosis with insufficiency; E78.5 Hyperlipidemia, unspecified; I25.10 Atherosclerotic heart disease of native coronary artery without angina pectoris; K21.9 Gastro-esophageal reflux disease without esophagitis; I25.5 Ischemic cardiomyopathy; M79.7 Fibromyalgia; D50.9 Iron deficiency anemia, unspecified; W05.0XXA Fall from non-moving wheelchair, initial encounter; M16.0 Bilateral primary osteoarthritis of hip; N40.0 Benign prostatic hyperplasia without lower urinary tract symptoms; M81.0 Age-related osteoporosis without current pathological fracture; Z66 Do not resuscitate; Z99.81 Dependence on supplemental oxygen; Z79.01 Long term (current) use of anticoagulants; Z79.82 Long term (current) use of aspirin; Z79.84 Long term (current) use of oral hypoglycemic drugs; Z79.899 Other long term (current) drug therapy; Z95.0 Presence of cardiac pacemaker; Z95.1 Presence of aortocoronary bypass graft; Z95.5 Presence of coronary angioplasty implant and graft
CPT/HCPCS: 36415; 71045; 73501; 73502; 76000; 80048; 80053; 80076; 82306; 82962; 83036; 83735; 84100; 84484; 84550; 85014; 85018; 85025; 86850; 86900; 86901; 90937; 93005; 94668; 96374; 97110; 97162; 97166; 97530; 97535; 99285; C1713; J7030; J7040; J7050; A4216; G0257; J2405; J2916

== ENCOUNTER → 2023-06-24 | Outpatient (REF) | payer MEDICARE, MEDICAID, SELFPAY ==
[2023-06-24 09:11] LABS: Hematocrit 24.4 % (40-54); Hemoglobin 7.4 g/dL (13.0-16.5); Mean Corp Hgb Conc 30.3 g/dL (32-36); Mean Corpuscular Hgb 30.8 pg (27.0-32.0); Mean Corpuscular Volume 101.7 fL (80-94); Platelet Count 219 K/mm3 (150-450); RBC Distribution Width CV 14.1 % (11.6-14.6); RBC Distribution Width SD 50.2 fl (35.1-43.9); White Blood Count 11.6 K/mm3 (4.4-11.0)
[2023-06-24 09:23] LABS: ALB/GLOB Ratio 0.5 RATIO (0.9-2.4); AST(SGOT) 24 U/L (15-37); Alanine Aminotransfer ALT/SGPT < 6 U/L (16-61); Albumin, Serum 2.3 g/dL (3.2-5.0); Alkaline Phosphatase 58 U/L (45-117); Anion Gap 10 (5-15); BUN 83 mg/dL (7-18); BUN/Creat Ratio 13.1 RATIO (10-20); Calcium,Total 9.4 mg/dL (8.5-10.1); Chloride 99 mmol/L (98-107); Creatinine, Serum 6.34 mg/dL (0.70-1.30); EST Glomerular Filtration Rate 9 mL/min (>60); Est Glom Filt Rate - Afr Amer 11 mL/min (>60); Globulin 4.6 g/dL (2.2-4.2); Glucose 118 mg/dL (74-106); Potassium 4.3 mmol/L (3.5-5.1); Protein, Total 6.9 g/dL (6.4-8.2); Sodium Level 135 mmol/L (136-145)
== END ==
LOC: OLS.SW 05:00
PROVIDERS: PCP Family Medicine; Visit Provider Family Medicine
DX: I48.91 Unspecified atrial fibrillation (principal); E11.9 Type 2 diabetes mellitus without complications; I10 Essential (primary) hypertension; E78.5 Hyperlipidemia, unspecified
CPT/HCPCS: 36415; 80053; 85027